=== PATIENT | female | born 1945 | race Caucasian/White ===

== ENCOUNTER 2018-01-28 10:20 | Inpatient (IN) | payer MEDICARE ==
--- OUTSIDE RECORDS SUMMARY | 2018-01-28 10:22 | XMS REPORT | Clinical Summary ---
:1945 Author Organization [facility] Address [address] [place] [address] Phone Care Team Providers Name Role Phone Unavailable Primary Care Provider Unavailable Allergies Active Allergy Reactions Severity Noted Date Comments Morphine 10/20/2017 Promethazine-Dm 10/20/2017 Current Medications Prescription Sig. Disp. Refills Start Date End Date Status atorvastatin Take 80 mg by Active (LIPITOR) 40 MG mouth daily . tablet enalapril (VASOTEC) Take 5 mg by Active 5 MG tablet mouth daily. furosemide (LASIX) Take 40 mg by Active 40 MG tablet mouth daily. dronedarone Take 400 mg by Active (MULTAQ) 400 mg mouth 2 (two) tablet times daily with breakfast and dinner. aspirin 81 MG EC Take 81 mg by Active tablet mouth daily. rivaroxaban Take 1 tablet 0 10/30/2017 Active (XARELTO) 20 mg Tab (20 mg total) tablet by mouth daily with dinner Hold since 10/18/2017 . clopidogrel Take 75 mg by Discontinued (PLAVIX) 75 mg mouth daily On 8 tablet hold since 10/18/17 . metoprolol Take 25 mg by Discontinued (LOPRESSOR) 25 MG mouth daily. 8 tablet rivaroxaban Take by mouth Discontinued (XARELTO) 20 mg Tab daily with 8 tablet dinner Hold since 10/18/2017 . acetaminophen Take 2 tablets 0 10/22/2017 (TYLENOL) 325 MG (650 mg total) 8 tablet by mouth every 6 (six) hours as needed for Pain for up to 10 days. traMADol (ULTRAM) Take 1 tablet 30 tablet 0 10/23/2017 50 mg tablet (50 mg total) 8 by mouth every 6 (six) hours as needed for up to 10 days. Max Daily Amount: 200 mg Active Problems Problem Noted Date Essential hypertension 10/22/2017 Right carotid artery occlusion 10/21/2017 Carotid artery occlusion Coronary artery disease TIA (transient ischemic attack) Atrial fibrillation (HCC) Hyperlipidemia Encounters Date Type Specialty Care Team Description 10/21/2017 - Hospital Encounter Cardiology Max eSo Occlusion of right 10/23/2017 carotid artery (Primary Dx) 10/21/2017 Procedure Pass 10/21/2017 Surgery Max Seo, ENDARTERECTOMY,CAROTID 10/20/2017 Hospital Encounter Max Seo MD 10/20/2017 Office Visit Cardiology Max Seo, Right-sided carotid MD artery disease (HCC) (Primary Dx);Chronic atrial fibrillation (HCC);Occlusion of right carotid artery;Coronary artery disease involving [place] coronary artery of [place] heart, angina presence unspecified;Transient cerebral ischemia, unspecified type;Atrial fibrillation, unspecified type (HCC);Hyperlipidemia, unspecified hyperlipidemia type 10/20/2017 Anesthesia Event Stephen Blackburn MD after 01/27/2017 Social History Tobacco Use Types Packs/Day Years Used Date Former Smoker 09 01 Quit: 2012 Smokeless Tobacco: Never Used Alcohol Use Drinks/Week oz/Week Comments No Sex Assigned at Date Recorded Not on file Last Filed Vital Signs Vital Sign Reading Time Taken Blood Pressure 105/60 10/23/2017 10:40 AM CDT Pulse 70 10/23/2017 10:40 AM CDT Temperature 35.7 C (96.2 F) 10/23/2017 8:03 AM CDT Respiratory Rate 18 10/23/2017 10:40 AM CDT Oxygen Saturation 94% 10/23/2017 10:40 AM CDT Inhaled Oxygen Concentration - - Weight 80.6 kg (177 lb 11.2 oz) 10/21/2017 6:49 AM CDT Height 157.5 cm (5' 2") 10/21/2017 6:49 AM CDT Body Mass Index 32.5 10/21/2017 6:49 AM CDT Plan of Treatment Health Maintenance Due Date Last Done Comments INFLUENZA VACCINE 05/03/2018 Implants Implanted Type Area Engineer And Geologist Device Expiration Model / Identifier Date Serial / Lot Grft Hemshld Dbl Ovidio 0.3x3.0in [id number] - [id number] Graft/Pa Right: GETINGE 03/02/2022 [id number] / Implanted: Qty: 1 on 10/21/2017 by Max Seo MD [facility] [place] IND:SARIKA: CV [id number] / [id number] Procedures Procedure Name Priority Date/Time Associated Diagnosis Comments ENDARTERECTOMY,CAROTID 10/21/2017 7:30 AM CDT CAROTID STENOSIS after 01/27/2017 Results EKG-SCANNED (10/26/2017 12:40 PM)RHYTHM STRIP - SCAN (10/26/2017 12:40 PM)CBC with platelet count + automated diff (10/23/2017 4:03 AM)Only the most recent of3 resultswithin the time period is included. Component Value Ref Range WBC 5.6 3.5 - 10.5 K/L RBC 3.59 (L) 3.93 - 5.22 M/L Hemoglobin 10.1 (L) 11.2 - 15.7 GM/DL Hematocrit 32.8 (L) 34.1 - 44.9 % MCV 91.4 79.4 - 94.8 fL MCH 28.1 25.6 - 32.2 pg MCHC 30.8 (L) 32.2 - 35.5 GM/DL RDW 15.2 (H) 11.7 - 14.4 % Platelets 113 (L) 150 - 450 K/CU MM MPV 13.5 (H) 9.4 - 12.3 fL nRBC 0 0 - 0 /100 WBC % Neutros 63 % % Lymphs 23 % % Monos 9 % % Eos 4 % % Baso 1 % # Neutros 3.50 1.56 - 6.13 K/L # Lymphs 1.29 1.18 - 3.74 K/L # Monos 0.52 (H) 0.24 - 0.36 K/L # Eos 0.23 0.04 - 0.36 K/L # Baso 0.03 0.01 - 0.08 K/L Immature Granulocytes-Relative 0 0 - 1 % Specimen Performing Laboratory Blood [facility] [address] [address] CBC with platelet count + automated diff (10/23/2017 4:03 AM)Only the most recent of3 resultswithin the time period is included. Specimen Performing Laboratory Blood Narrative The following orders were created for panel order CBC with platelet count + automated diff. Procedure Abnormality Status --------- ------ CBC with platelet count ...[[id number]]AbnormalFinal result Please view results for these tests on the individual orders. Magnesium (10/23/2017 4:03 AM) Component Value Ref Range Magnesium 1.7 1.6 - 2.6 mg/dL Specimen Performing Laboratory Blood [place] [id number] Narrative [facility] with [facility] with [facility] Basic Metabolic Panel (10/23/2017 4:03 AM)Only the most recent of3 resultswithin the time period is included. Component Value Ref Range Sodium 138 136 - 145 meq/L Potassium 3.7 3.5 - 5.1 meq/L Chloride 103 98 - 107 meq/L CO2 28 22 - 29 meq/L BUN 11 7 - 21 mg/dL Creatinine 0.95 0.57 - 1.25 mg/dL Glucose 89 70 - 105 mg/dL Calcium 9.0 8.4 - 10.2 mg/dL EGFR 58Comment: ESTIMATED GFR IS NOT ACCURATE mL/min/1.73 sq m CREATININE CLEARANCE IN PREDICTING GLOMERULAR FILTRATION RATE. ESTIMATED GFR IS NOT APPLICABLE FOR DIALYSIS PATIENTS. Specimen Performing Laboratory Blood [address] [address] Narrative Call [facility] with [facility] with results TRANSFUSION SERVICE REPORT - SCAN (10/21/2017 5:43 PM)Glucose-Stat Lab (2017 9:29 AM) Component Value Ref Range Glucose 105 70 - 110 mg/dL Specimen Performing Laboratory Blood, Arterial [address] [address] HGB/HCT (H&H)-Stat Lab (10/21/2017 9:29 AM) Component Value Ref Range Hemoglobin 11.2 (L) 12.0 - 15.0 g/dL Hematocrit 33.0 (L) 36.0 - 45.0 % Specimen Performing Laboratory Blood, Arterial [address] [address] Tissue Exam (10/21/2017 8:37 AM) Component Value Ref Range Case Report Surgical Pathology Report Case: [id number] Authorizing Provider:Max Seo MDCollected: 10/21/2017 0837 Ordering Location: [facility] Received: 10/21/2017 0931 PERIOPERATIVE SERVICES Pathologist: Gilbert Anderson MD Specimen:Carotid, Right, RIGHT CAROTID PLAQUE DIAGNOSIS ARTERY, RIGHT CAROTID, ENDARTERECTOMY: CALCIFIC ATHEROSCLEROTIC PLAQUE Signing Pathologist Direct Phone Line: [phone] CPT Code(s) 48121; 05772 CLINICAL HISTORY Carotid stenosis SPECIMEN SOURCE Right carotid plaque GROSS DESCRIPTION In saline labeled "carotid, right", description "right carotid plaque" is a 3.5 cm in length x 0.9 cm in diameter michel-white to yellow-ang cylindrical previously incised portion of fibrous tissue. Sectioning reveals focal calcification. Fast Brim Pouncer sections are submitted in cassette A1 for decalcification. DB/pl MICROSCOPIC DESCRIPTION Performed Specimen Performing Laboratory Tissue - Carotid, Right [facility] [address] [address] XR chest 1 view portable / bedside (10/21/2017 7:21 AM) Specimen Performing Laboratory GE RIS Narrative FINAL REPORT Chest one view AP 10/21/2017 7:29 AM CLINICAL INDICATION: baseline pre op COMPARISON: None available IMPRESSION: The cardiac silhouette is prominent. There is calcification and enlargement of the mitral valve annulus. The central pulmonary vasculature is not engorged. The lungs are well aerated. There are postoperative changes in the left humerus. Signed: Adriel May MD Report Verified Date/Time:10/21/2017 07:29:40 Reading Location: [facility] Radiology Reading Room Procedure Note Interface, External Ris In - 10/21/2017 7:31 AM CDT FINAL REPORT Chest one view AP 10/21/2017 7:29 AM CLINICAL INDICATION: baseline pre op COMPARISON: None available IMPRESSION: The cardiac silhouette is prominent. There is calcification and enlargement of the mitral valve annulus. The central pulmonary vasculature is not engorged. The lungs are well aerated. There are postoperative changes in the left humerus. Signed: Adriel May MD Report Verified Date/Time: 10/21/2017 07:29:40 Reading Location: [facility] Reading Room Prothrombin time/INR (10/21/2017 7:05 AM) Component Value Ref Range Protime 13.5 11.7 - 14.7 seconds INR 1.0 <=5.9 Specimen Performing [place] [address] Narrative RECOMMENDED COUMADIN/WARFARIN INR THERAPY RANGES STANDARD DOSE: 2.0 - 3.0 Includes: PROPHYLAXIS for venous thrombosis, systemic embolization; TREATMENT for venous thrombosis and/or pulmonary embolus. HIGH RISK: Target INR is 2.5-3.5 for patients with mechanical heart valves. Type and screen, automated (10/20/2017 9:49 AM) Component Value Ref Range ABO/RH AUTOMATED (BEAKER) A POSITIVE Ab Scrn NEGATIVE Specimen Performing [place] [address] after 01/27/2017
--- OUTSIDE RECORDS SUMMARY | 2018-01-28 10:22 | XMS REPORT ---
:1945 Author Organization [facility] Address [address] [place] [address] [address] [place] [address] Care Team Providers Name Role Phone CARLOS SEO Unavailable Unavailable Problems This patient has no known problems. Allergies, Adverse Reactions, Alerts This patient has no known allergies or adverse reactions. Medications This patient has no known medications. Results Test Description Test Time Test Comments Text Results Atomic Results Result Comments TISSUE EXAM 2017-10-29 14:20:00 Surgical Pathology Report Case: [id number] Authorizing Provider: Carlos Seo MD Collected: 10/21/2017 0837 Ordering Location: [facility] Received: 10/21/2017 0931 PERIOPERATIVE SERVICES Pathologist: Gilbert Anderson MD Specimen: Carotid, Right, RIGHT CAROTID PLAQUE ARTERY, RIGHT CAROTID, ENDARTERECTOMY:CALCIFIC ATHEROSCLEROTIC PLAQUE Signing Pathologist Direct Phone Line: [phone] signed by Gilbert Anderson MD on 10/29/2017 at 2:20 [id number]; [id number] stenosisRight carotid plaqueIn saline labeled "carotid, right", description "right carotid plaque" is a 3.5 cm in length x 0.9 cm in diameter michel-white to yellow-ang cylindrical previously incised portion of fibrous tissue. Sectioning reveals focal calcification. Passenger Train Braker sections are submitted in cassette A1 for decalcification. DB/plPerformed MAGNESIUM 2017-10-23 05:30:00 Test Item Value Reference Range Comments MAGNESIUM (BEAKER) (test vfop=284) 1.7 mg/dL 1.6-2.6 Call [facility] with resultsCall [facility] with resultsBASIC METABOLIC [id number] 05:30: 00 Test Item Value Reference Range Comments SODIUM (BEAKER) (test 138 meq/L 136-145 ykdv=088) POTASSIUM (BEAKER) (test 3.7 meq/L 3.5-5.1 jrsc=770) CHLORIDE (BEAKER) (test 103 meq/L 98-107 skix=795) CO2 (BEAKER) (test 28 meq/L 22-29 blnt=201) BLOOD UREA NITROGEN 11 mg/dL 7-21 (BEAKER) (test alxy=935) CREATININE (BEAKER) (test 0.95 mg/dL 0.57-1.25 uory=331) GLUCOSE RANDOM (BEAKER) 89 mg/dL 70-105 (test vtew=339) CALCIUM (BEAKER) (test 9.0 mg/dL 8.4-10.2 lcsm=015) EGFR (BEAKER) (test 58 mL/min/1.73 sq m ESTIMATED GFR IS NOT glvc=6510) ACCURATE CREATININE CLEARANCE IN PREDICTING GLOMERULAR FILTRATION RATE. ESTIMATED GFR IS NOT APPLICABLE FOR DIALYSIS PATIENTS. Call [facility] with resultsCall [facility] with resultsCBC W/PLT COUNT & AUTO [id number] 04:49:00 Test Item Value Reference Range Comments WHITE BLOOD CELL COUNT (BEAKER) (test psjt=825) 5.6 K/ L 3.5-10.5 RED BLOOD CELL COUNT (BEAKER) (test gibg=624) 3.59 M/ L 3.93-5.22 HEMOGLOBIN (BEAKER) (test dpod=962) 10.1 GM/DL 11.2-15.7 HEMATOCRIT (BEAKER) (test kjbh=584) 32.8 % 34.1-44.9 MEAN CORPUSCULAR VOLUME (BEAKER) (test vinc=207) 91.4 fL 79.4-94.8 MEAN CORPUSCULAR HEMOGLOBIN (BEAKER) (test 28.1 pg 25.6-32.2 ennz=627) MEAN CORPUSCULAR HEMOGLOBIN CONC (BEAKER) (test 30.8 GM/DL 32.2-35.5 dede=348) RED CELL DISTRIBUTION WIDTH (BEAKER) (test 15.2 % 11.7-14.4 mohs=130) PLATELET COUNT (BEAKER) (test btqr=981) 113 K/CU MM 150-450 MEAN PLATELET VOLUME (BEAKER) (test xfsw=056) 13.5 fL 9.4-12.3 NUCLEATED RED BLOOD CELLS (BEAKER) (test 0 /100 WBC 0-0 vdle=078) NEUTROPHILS RELATIVE PERCENT (BEAKER) (test 63 % hkak=066) LYMPHOCYTES RELATIVE PERCENT (BEAKER) (test 23 % myvk=792) MONOCYTES RELATIVE PERCENT (BEAKER) (test 9 % rkjw=793) EOSINOPHILS RELATIVE PERCENT (BEAKER) (test 4 % gntx=072) BASOPHILS RELATIVE PERCENT (BEAKER) (test 1 % erpb=640) NEUTROPHILS ABSOLUTE COUNT (BEAKER) (test 3.50 K/ L 1.56-6.13 kulc=787) LYMPHOCYTES ABSOLUTE COUNT (BEAKER) (test 1.29 K/ L 1.18-3.74 qlmv=570) MONOCYTES ABSOLUTE COUNT (BEAKER) (test 0.52 K/ L 0.24-0.36 rehd=834) EOSINOPHILS ABSOLUTE COUNT (BEAKER) (test 0.23 K/ L 0.04-0.36 pnif=672) BASOPHILS ABSOLUTE COUNT (BEAKER) (test 0.03 K/ L 0.01-0.08 eybr=922) IMMATURE GRANULOCYTES-RELATIVE PERCENT (BEAKER) 0 % 0-1 (test qagj=3954) BASIC METABOLIC [id number] 05:38:00 Test Item Value Reference Range Comments SODIUM (BEAKER) (test 138 meq/L 136-145 jsyn=841) POTASSIUM (BEAKER) (test 3.7 meq/L 3.5-5.1 ucsb=241) CHLORIDE (BEAKER) (test 107 meq/L 98-107 xqrl=354) CO2 (BEAKER) (test 25 meq/L 22-29 clqx=117) BLOOD UREA NITROGEN 14 mg/dL 7-21 (BEAKER) (test abin=503) CREATININE (BEAKER) (test 0.76 mg/dL 0.57-1.25 hlun=369) GLUCOSE RANDOM (BEAKER) 88 mg/dL 70-105 (test sdkr=473) CALCIUM (BEAKER) (test 8.5 mg/dL 8.4-10.2 dsga=302) EGFR (BEAKER) (test 75 mL/min/1.73 sq m ESTIMATED GFR IS NOT wzwd=8493) ACCURATE CREATININE CLEARANCE IN PREDICTING GLOMERULAR FILTRATION RATE. ESTIMATED GFR IS NOT APPLICABLE FOR DIALYSIS PATIENTS. CBC W/PLT COUNT & AUTO [id number] 05:13:00 Test Item Value Reference Range Comments WHITE BLOOD CELL COUNT (BEAKER) (test gais=574) 3.8 K/ L 3.5-10.5 RED BLOOD CELL COUNT (BEAKER) (test xkww=057) 3.40 M/ L 3.93-5.22 HEMOGLOBIN (BEAKER) (test lucp=329) 9.6 GM/DL 11.2-15.7 HEMATOCRIT (BEAKER) (test hxdw=200) 31.3 % 34.1-44.9 MEAN CORPUSCULAR VOLUME (BEAKER) (test wjxg=669) 92.1 fL 79.4-94.8 MEAN CORPUSCULAR HEMOGLOBIN (BEAKER) (test 28.2 pg 25.6-32.2 lvyr=042) MEAN CORPUSCULAR HEMOGLOBIN CONC (BEAKER) (test 30.7 GM/DL 32.2-35.5 ncof=709) RED CELL DISTRIBUTION WIDTH (BEAKER) (test 15.4 % 11.7-14.4 ndyr=088) PLATELET COUNT (BEAKER) (test ivtx=504) 91 K/CU MM 150-450 MEAN PLATELET VOLUME (BEAKER) (test utna=095) 13.6 fL 9.4-12.3 NUCLEATED RED BLOOD CELLS (BEAKER) (test 0 /100 WBC 0-0 ympn=620) NEUTROPHILS RELATIVE PERCENT (BEAKER) (test 64 % ygpm=034) LYMPHOCYTES RELATIVE PERCENT (BEAKER) (test 23 % ehmn=623) MONOCYTES RELATIVE PERCENT (BEAKER) (test 8 % qzor=778) EOSINOPHILS RELATIVE PERCENT (BEAKER) (test 4 % yspl=020) BASOPHILS RELATIVE PERCENT (BEAKER) (test 0 % vhvj=605) NEUTROPHILS ABSOLUTE COUNT (BEAKER) (test 2.45 K/ L 1.56-6.13 mekm=166) LYMPHOCYTES ABSOLUTE COUNT (BEAKER) (test 0.89 K/ L 1.18-3.74 fdzn=963) MONOCYTES ABSOLUTE COUNT (BEAKER) (test uluy=123) 0.30 K/ L 0.24-0.36 EOSINOPHILS ABSOLUTE COUNT (BEAKER) (test 0.14 K/ L 0.04-0.36 rrro=292) BASOPHILS ABSOLUTE COUNT (BEAKER) (test xovb=310) 0.01 K/ L 0.01-0.08 IMMATURE GRANULOCYTES-RELATIVE PERCENT (BEAKER) 1 % 0-1 (test feae=6015) GLUCOSE-STAT [id number] 09:53:00 Test Item Value Reference Range Comments GLUCOSE RANDOM (BEAKER) (test isot=674) 105 mg/dL 70-110 HGB/HCT (H&H) - STAT [id number] 09:53:00 Test Item Value Reference Range Comments HEMOGLOBIN (BEAKER) (test todg=752) 11.2 g/dL 12.0-15.0 HEMATOCRIT (BEAKER) (test hvdf=411) 33.0 % 36.0-45.0 BASIC METABOLIC [id number] 07:45:00 Test Item Value Reference Range Comments SODIUM (BEAKER) (test 136 meq/L 136-145 fppo=929) POTASSIUM (BEAKER) (test 3.5 meq/L 3.5-5.1 jthy=608) CHLORIDE (BEAKER) (test 107 meq/L 98-107 wasg=497) CO2 (BEAKER) (test 21 meq/L 22-29 kqnv=187) BLOOD UREA NITROGEN 17 mg/dL 7-21 (BEAKER) (test egaj=526) CREATININE (BEAKER) (test 0.78 mg/dL 0.57-1.25 glpg=837) GLUCOSE RANDOM (BEAKER) 93 mg/dL 70-105 (test vixz=694) CALCIUM (BEAKER) (test 9.6 mg/dL 8.4-10.2 cukh=430) EGFR (BEAKER) (test 73 mL/min/1.73 sq m ESTIMATED GFR IS NOT xsdz=1764) ACCURATE CREATININE CLEARANCE IN PREDICTING GLOMERULAR FILTRATION RATE. ESTIMATED GFR IS NOT APPLICABLE FOR DIALYSIS PATIENTS. RAD, CHEST, 1 VIEW, NON [id number] 07:29:00Reason for exam:-> baselineReason for exam:->pre opShould this be performed at the bedside?-> YesFINAL REPORT Chest one view AP 10/21/2017 7:29 AM CLINICAL INDICATION: baselinepre op COMPARISON: None available IMPRESSION: The cardiac silhouette is prominent. There is calcification and enlargement of the mitral valve annulus. The central pulmonary vasculature is not engorged.The lungs are well aerated. There are postoperative changes in the left humerus. Signed: Adriel Mayeport Verified Date/Time: 10/21/2017 07:29:40 Reading Location: [facility] Reading Room PROTHROMBIN [id number] 07:23:00 Test Item Value Reference Range Comments PROTIME (BEAKER) (test ercs=532) 13.5 seconds 11.7-14.7 INR (BEAKER) (test ccfj=110) 1.0 <=5.9 RECOMMENDED COUMADIN/WARFARIN INR THERAPY RANGESSTANDARD DOSE: 2.0 - 3.0 Includes: PROPHYLAXIS forvenous thrombosis, systemic embolization; TREATMENT for venous thrombosis and/or pulmonary embolus.HIGH RISK: Target INR is 2.5-3.5 for patients with mechanical heart valves.CBC W/PLT COUNT & AUTO [id number] 10:12:00 Test Item Value Reference Range Comments WHITE BLOOD CELL COUNT (BEAKER) (test auhe=931) 5.4 K/ L 3.5-10.5 RED BLOOD CELL COUNT (BEAKER) (test pgrc=145) 4.39 M/ L 3.93-5.22 HEMOGLOBIN (BEAKER) (test gtjq=168) 12.2 GM/DL 11.2-15.7 HEMATOCRIT (BEAKER) (test mhkv=255) 39.1 % 34.1-44.9 MEAN CORPUSCULAR VOLUME (BEAKER) (test lalw=528) 89.1 fL 79.4-94.8 MEAN CORPUSCULAR HEMOGLOBIN (BEAKER) (test 27.8 pg 25.6-32.2 yddg=395) MEAN CORPUSCULAR HEMOGLOBIN CONC (BEAKER) (test 31.2 GM/DL 32.2-35.5 bfmd=005) RED CELL DISTRIBUTION WIDTH (BEAKER) (test 14.7 % 11.7-14.4 szum=410) PLATELET COUNT (BEAKER) (test hteg=796) 151 K/CU MM 150-450 MEAN PLATELET VOLUME (BEAKER) (test ppgs=008) 13.0 fL 9.4-12.3 NUCLEATED RED BLOOD CELLS (BEAKER) (test 0 /100 WBC 0-0 gddl=421) NEUTROPHILS RELATIVE PERCENT (BEAKER) (test 72 % rtny=001) LYMPHOCYTES RELATIVE PERCENT (BEAKER) (test 18 % agzq=925) MONOCYTES RELATIVE PERCENT (BEAKER) (test 7 % jijz=999) EOSINOPHILS RELATIVE PERCENT (BEAKER) (test 2 % fhtv=227) BASOPHILS RELATIVE PERCENT (BEAKER) (test 1 % cjbm=865) NEUTROPHILS ABSOLUTE COUNT (BEAKER) (test 3.89 K/ L 1.56-6.13 gywf=479) LYMPHOCYTES ABSOLUTE COUNT (BEAKER) (test 0.99 K/ L 1.18-3.74 kfxf=066) MONOCYTES ABSOLUTE COUNT (BEAKER) (test 0.37 K/ L 0.24-0.36 suqc=687) EOSINOPHILS ABSOLUTE COUNT (BEAKER) (test 0.08 K/ L 0.04-0.36 ywaf=636) BASOPHILS ABSOLUTE COUNT (BEAKER) (test 0.03 K/ L 0.01-0.08 qoju=852) IMMATURE GRANULOCYTES-RELATIVE PERCENT (BEAKER) 1 % 0-1 (test rjrh=1843)
[2018-01-28] MEDS ORDERED: METOPROLOL TARTRATE 5 MG/5 ML INJ IV ONE (10:34)
[2018-01-28 11:06] LABS: ALT/SGPT 25 U/L (12-78); AST/SGOT 32 U/L (15-37); Albumin 3.5 g/dL (3.4-5.0); Alkaline Phosphatase 125 U/L (45-117); BUN Blood Urea Nitrogen 22 mg/dL (7-18); Bicarbonate 26 mmol/L (21-32); Bilirubin Direct < 0.1 mg/dL (0-0.2); Bilirubin Total 0.3 mg/dL (0.2-1.0); Creatine Phosphokinase 103 U/L (26-192); Glucose Level 99 mg/dL (74-106); Magnesium 1.9 mg/dL (1.8-2.4); NT PRO-BNP 5065 pg/mL (<125); Potassium 3.1 mmol/L (3.5-5.1); Protein, Total 7.4 g/dL (6.4-8.2); Sodium Level 142 mmol/L (136-145)
[2018-01-28 11:19] LABS: Protime INR 1.06
[2018-01-28] MEDS ORDERED: POTASSIUM CL SA 10 MEQ TAB PO ONE (11:22)
[2018-01-28] MEDS ORDERED: FUROSEMIDE 40 MG/4 ML VIAL ONE (11:23)
[2018-01-28 11:24] LABS: Absolute Lymphocytes (CBC) 0.8 K/uL (0.7-4.9); Absolute Monocytes 0.3 K/uL (0.1-1.3); Absolute Neutrophil 3.8 K/uL (1.8-8.0); Basophils % 0.8 % (0-1.3); Eosinophils % 1.4 % (0-4.4); Hematocrit 36.1 % (36.0-45.0); Lymphocytes % 15.6 % (15.3-44.8); MCH 27.2 pg (27.0-35.0); MCV 86.7 fL (80-100); MPV 11.5 fL (7.6-11.3); Monocytes % 6.9 % (3.3-12.3); RBC Red Blood Cell Count 4.17 M/uL (3.86-4.86)
--- NOTE | 2018-01-28 11:28 | RAD REPORT ---
EXAM DESCRIPTION: Daisha Single View01/28/2018 11:18 am CLINICAL HISTORY: Shortness of breath COMPARISON: October 2017 FINDINGS: Moderate bilateral pulmonary opacities are seen. The heart is mildly to moderately enlarg ed. Small pleural effusions may be present IMPRESSION: These findings likely indicate CHF
--- NOTE | 2018-01-28 11:29 | ER ---
Nurse's Notes [facility] Name: Jenniffer Harden Age: 72 yrs Sex: Female : 1945 Arrival Date: 01/28/2018 Time: 10:21 Bed 4 Private MD: Kasey Pinto Diagnosis: Atrial fibrillation and flutter-with rvr;Acute systolic (congestive) heart failure Presentation: 01/28 10:28 Presenting complaint: Patient states: "I have a-fib and I have been feeling really lk1 short of breath since this morning. I have never felt like this before. I was here a few months ago and they had to shock me.". Transition of care: patient was not received from another setting of care. Onset of symptoms was January 28, 2018 at 08:00. Risk Assessment: Do you want to hurt yourself or someone else? Patient reports no desire to harm self or others. Initial Sepsis Screen: Does the patient meet any 2 criteria? No. Patient's initial sepsis screen is negative. Does the patient have a suspected source of infection? No. Patient's initial sepsis screen is negative. Care prior to arrival: None. 10:28 Method Of Arrival: Wheelchair lk1 10:28 Acuity: RUTHIE 2 lk1 Historical: - Allergies: 10:30 Morphine; lk1 10:30 PENICILLINS; lk1 10:30 Phenergan; lk1 - Home Meds: 13:50 atorvastatin 40 mg oral tab 1 tab once daily [Active]; clopidogrel 75 mg oral tab 1 tab iw once daily [Active]; enalapril maleate 5 mg Oral tab 1 tab once daily [Active]; furosemide 40 mg Oral tab 1 tab once daily [Active]; metoprolol tartrate 25 mg Oral tab 1 tab once daily [Active]; aspirin 81 mg Oral TbEC 1 tab once daily [Active]; - PMHx: 10:30 Arthritis; Atrial Fib; Hypertension; mitral valve prolapse; Myocardial infarction; lk1 Osteoporosis; - PSHx: 10:30 Heart stents; left hip; Cholecystectomy; Hysterectomy; Carotid surgery; left shoulder lk1 replacement; - Immunization history:: Adult Immunizations up to date. - Social history:: Smoking status: Patient/guardian denies using tobacco. - Ebola Screening: : Patient negative for fever greater than or equal to 101.5 degrees Fahrenheit, and additional compatible Ebola Virus Disease symptoms Patient denies exposure to infectious person Patient denies travel to an Ebola-affected area in the 21 days before illness onset No symptoms or risks identified at this time. Screenin:31 Abuse screen: Denies threats or abuse. Denies injuries from another. Nutritional jl7 screening: No deficits noted. Tuberculosis screening: No symptoms or risk factors identified. Fall Risk IV access (20 points). Total Hall Fall Scale indicates No Risk (0-24 pts). Assessment: 10:31 General: Appears uncomfortable, Behavior is calm, cooperative. Pain: Denies pain. Pain jl7 does not radiate. Pain began 1 day ago. Cardiovascular: Heart tones present Patient's skin is warm and dry. Rhythm is atrial fibrillation with rapid ventricular response Chest pain pt states "It's not pain. It just feels like pressure and I feel like I can't catch my breath.". 10:31 Neuro: Level of Consciousness is awake, alert, obeys commands, Oriented to person, jl7 place, time, situation. Respiratory: Airway is patent Respiratory effort is even, labored, Respiratory pattern is symmetrical, tachypnea Breath sounds are clear bilaterally. GI: Reports nausea, Patient currently denies diarrhea, vomiting. : No signs and/or symptoms were reported regarding the genitourinary system. Derm: Skin is pink, warm \\T\\ dry. 11:30 Reassessment: Patient and/or family updated on plan of care and expected duration. Pain jl7 level reassessed. Patient is alert, oriented x 3, equal unlabored respirations, skin warm/dry/pink. 12:30 Reassessment: pt c/o Headache, provider notified, see MAR for orders. jl7 12:55 Reassessment: Dr. Hidalgo at bedside. jl7 13:11 Reassessment: Echo at bedside. jl7 Vital Signs: 10:31 BP 156 / 102; Pulse 169; Resp 24; Temp 98.1(TE); Pulse Ox 96% on R/A; Weight 77.11 kg lk1 (R); Height 5 ft. 2 in. (157.48 cm) (R); Pain 0/10; 10:34 BP 142 / 100; Pulse 132; Resp 16 S; Pulse Ox 96% on 2 lpm NC; jl7 10:39 BP 142 / 103; Pulse 119; Resp 23; Pulse Ox 97% 2 lpm ; jl7 10:44 BP 128 / 103; Pulse 115; Resp 19; Pulse Ox 96% on 2 lpm NC; Pain 0/10; jl7 11:02 BP 116 / 82; Pulse 118; Resp 19; Pulse Ox 97% on 2 lpm NC; Pain 0/10; jl7 11:30 BP 114 / 89; Pulse 130; Resp 16 S; Pulse Ox 97% on 2 lpm NC; jl7 12:00 BP 124 / 90; Pulse 120; Resp 20 S; Pulse Ox 96% on 2 lpm NC; jl7 12:30 BP 139 / 90; Pulse 127; Resp 19; Pulse Ox 96% on 2 lpm NC; jl7 13:00 BP 124 / 102; Pulse 128; Resp 22; Pulse Ox 98% on 2 lpm NC; jl7 10:31 Body Mass Index 31.09 (77.11 kg, 157.48 cm) lk1 ED Course: 10:21 Patient arrived in ED. mr 10:21 Kasey Pinto MD is Private Physician. mr 10:29 Triage completed. lk1 10:31 Arm band placed on right wrist. lk1 10:31 Patient has correct armband on for positive identification. Placed in gown. Bed in low jl7 position. Call light in reach. Side rails up X 1. cardiac monitor on. Pulse ox on. NIBP on. Warm blanket given. 10:31 Inserted saline lock: 18 gauge in right antecubital area, using aseptic technique. jl7 ,using aseptic technique. Inserted by INOCENCIO Hernandez Blood collected. Oxygen administration via nasal cannula \\T\\ 2L/min. 10:35 Inserted saline lock: 20 gauge in left antecubital area, using aseptic technique. jl7 ,using aseptic technique. Inserted by FANY Shannon. 10:40 Harjinder Nicolas PA is PHCP. jr8 10:40 Joni Meléndez MD is Attending Physician. jr8 10:40 Inserted saline lock: 20 gauge in right wrist, using aseptic technique. inserted by kishan Hernandez RN. 10:54 Reed Azul RN is Primary Nurse. jl7 11:15 X-ray completed. Portable x-ray completed in exam room. Patient tolerated procedure ml well. 11:18 XRAY Chest (1 view) In Process Unspecified. EDMS 11:28 Thien Sims MD is Hospitalizing Provider. jr8 14:33 No provider procedures requiring assistance completed. Patient admitted, IV remains in iw place. Administered Medications: 10:32 Drug: Metoprolol 5 mg Route: IVP; Site: right antecubital; jl7 10:39 Drug: Metoprolol 5 mg Route: IVP; Site: left antecubital; jl7 10:44 Drug: Metoprolol 5 mg Route: IVP; Site: right antecubital; jl7 10:50 Follow up: Response: No adverse reaction; Other; HR decreased jl7 11:25 Drug: Potassium Chloride 40 mEq Route: PO; jl7 13:11 Follow up: Response: No adverse reaction jl7 11:26 Drug: Lasix 40 mg Route: IVP; Site: right wrist; jl7 13:11 Follow up: Response: No adverse reaction jl7 13:04 Drug: Tylenol 1000 mg Route: PO; jl7 13:40 Follow up: Response: No adverse reaction iw 13:05 Drug: Digoxin 0.5 mg Route: IVP; Site: left antecubital; jl7 14:00 Follow up: Response: No adverse reaction iw Outcome: 11:29 Decision to Hospitalize by Provider. jr8 14:32 Admitted to Tele accompanied by tech, family with patient, via stretcher, with oxygen, iw with chart, Report called to INOCENCIO Chew 14:32 Condition: good 14:32 Discharge instructions given to patient, family, Instructed on the need for admit. 14:34 Patient left the ED. iw Signatures: Dispatcher [employer] [facility] Milagros Fish Irene, RN Lynne Mabry Josh, PA PA jr8 Berna Vallecillo RN RN lk1 Reed Azul RN RN jl7 Corrections: (The following items were deleted from the chart) 13:11 10:04 Tylenol 1000 mg PO jl7 jl7
--- NOTE | 2018-01-28 11:29 | EDPHYS ---
Physician Documentation [facility] Name: Jenniffer Harden Age: 72 yrs Sex: Female : 1945 Arrival Date: 01/28/2018 Time: 10:21 Bed 4 Private MD: Kasey Pinto ED Physician Joni Meléndez HPI: 01/28 11:26 This 72 yrs old Female presents to ER via Wheelchair with complaints of jr8 Shortness of breath. 11:26 The patient has shortness of breath at rest. Onset: The symptoms/episode began/occurred jr8 acutely, today. Duration: The symptoms are continuous. The patient's shortness of breath is aggravated by walking. Associated signs and symptoms: Pertinent positives: palpitations. Severity of symptoms: At their worst the symptoms were moderate in the emergency department the symptoms are unchanged. The patient has not experienced similar symptoms in the past. The patient has not recently seen a physician. history of atrial fibrillation. Has been off of anticoagulation due to carotid stents . Historical: - Allergies: 10:30 Morphine; lk1 10:30 PENICILLINS; lk1 10:30 Phenergan; lk1 - Home Meds: 13:50 atorvastatin 40 mg oral tab 1 tab once daily [Active]; clopidogrel 75 mg oral tab 1 tab iw once daily [Active]; enalapril maleate 5 mg Oral tab 1 tab once daily [Active]; furosemide 40 mg Oral tab 1 tab once daily [Active]; metoprolol tartrate 25 mg Oral tab 1 tab once daily [Active]; aspirin 81 mg Oral TbEC 1 tab once daily [Active]; - PMHx: 10:30 Arthritis; Atrial Fib; Hypertension; mitral valve prolapse; Myocardial infarction; lk1 Osteoporosis; - PSHx: 10:30 Heart stents; left hip; Cholecystectomy; Hysterectomy; Carotid surgery; left shoulder lk1 replacement; - Immunization history:: Adult Immunizations up to date. - Social history:: Smoking status: Patient/guardian denies using tobacco. - Ebola Screening: : Patient negative for fever greater than or equal to 101.5 degrees Fahrenheit, and additional compatible Ebola Virus Disease symptoms Patient denies exposure to infectious person Patient denies travel to an Ebola-affected area in the 21 days before illness onset No symptoms or risks identified at this time. ROS: 11:26 Eyes: Negative for injury, pain, redness, and discharge, ENT: Negative for injury, jr8 pain, and discharge, Neck: Negative for injury, pain, and swelling, Abdomen/GI: Negative for abdominal pain, nausea, vomiting, diarrhea, and constipation, Back: Negative for injury and pain, MS/Extremity: Negative for injury and deformity, Skin: Negative for injury, rash, and discoloration, Neuro: Negative for headache, weakness, numbness, tingling, and seizure. 11:26 Cardiovascular: Positive for palpitations, Negative for chest pain, edema, orthopnea, paroxysmal nocturnal dyspnea. 11:26 Respiratory: Positive for dyspnea on exertion, shortness of breath. Exam: 11:26 Eyes: Pupils equal round and reactive to light, extra-ocular motions intact. Lids and jr8 lashes normal. Conjunctiva and sclera are non-icteric and not injected. Cornea within normal limits. Periorbital areas with no swelling, redness, or edema. ENT: Nares patent. No nasal discharge, no septal abnormalities noted. Tympanic membranes are normal and external auditory canals are clear. Oropharynx with no redness, swelling, or masses, exudates, or evidence of obstruction, uvula midline. Mucous membranes moist. Neck: Trachea midline, no thyromegaly or masses palpated, and no cervical lymphadenopathy. Supple, full range of motion without nuchal rigidity, or vertebral point tenderness. No Meningismus. Abdomen/GI: Soft, non-tender, with normal bowel sounds. No distension or tympany. No guarding or rebound. No evidence of tenderness throughout. Back: No spinal tenderness. No costovertebral tenderness. Full range of motion. Skin: Warm, dry with normal turgor. Normal color with no rashes, no lesions, and no evidence of cellulitis. MS/ Extremity: Pulses equal, no cyanosis. Neurovascular intact. Full, normal range of motion. Neuro: Awake and alert, GCS 15, oriented to person, place, time, and situation. Cranial nerves II-XII grossly intact. Motor strength 5/5 in all extremities. Sensory grossly intact. Cerebellar exam normal. Normal gait. 11:26 Respiratory: Lungs have equal breath sounds bilaterally, clear to auscultation and percussion. No rales, rhonchi or wheezes noted. No increased work of breathing, no retractions or nasal flaring. 11:26 Cardiovascular: Rate: tachycardic, Rhythm: irregularly irregular, Pulses: Pulses are 1+ in right radial artery and left radial artery. Heart sounds: normal, normal S1and S2, no S3 or S4, no murmur, no rub, no gallop, Edema: is not appreciated, JVD: is not appreciated. 11:31 ECG was reviewed by the Attending Physician. jr8 Vital Signs: 10:31 BP 156 / 102; Pulse 169; Resp 24; Temp 98.1(TE); Pulse Ox 96% on R/A; Weight 77.11 kg lk1 (R); Height 5 ft. 2 in. (157.48 cm) (R); Pain 0/10; 10:34 BP 142 / 100; Pulse 132; Resp 16 S; Pulse Ox 96% on 2 lpm NC; jl7 10:39 BP 142 / 103; Pulse 119; Resp 23; Pulse Ox 97% 2 lpm ; jl7 10:44 BP 128 / 103; Pulse 115; Resp 19; Pulse Ox 96% on 2 lpm NC; Pain 0/10; jl7 11:02 BP 116 / 82; Pulse 118; Resp 19; Pulse Ox 97% on 2 lpm NC; Pain 0/10; jl7 11:30 BP 114 / 89; Pulse 130; Resp 16 S; Pulse Ox 97% on 2 lpm NC; jl7 12:00 BP 124 / 90; Pulse 120; Resp 20 S; Pulse Ox 96% on 2 lpm NC; jl7 12:30 BP 139 / 90; Pulse 127; Resp 19; Pulse Ox 96% on 2 lpm NC; jl7 13:00 BP 124 / 102; Pulse 128; Resp 22; Pulse Ox 98% on 2 lpm NC; jl7 10:31 Body Mass Index 31.09 (77.11 kg, 157.48 cm) lk1 MDM: 10:40 Patient medically screened. jr8 11:26 Data reviewed: vital signs, nurses notes, lab test result(s), EKG, radiologic studies, jr8 plain films, and as a result, I will admit patient. Data interpreted: Pulse oximetry: on room air is 97 %. Interpretation: normal. Counseling: I had a detailed discussion with the patient and/or guardian regarding: the historical points, exam findings, and any diagnostic results supporting the discharge/admit diagnosis, lab results, radiology results, the need for further work-up and treatment in the hospital. Physician consultation: Thien Sims MD was called at 11:, was contacted at :, regarding admission, to the telemetry unit. consult, patient's condition, and will see patient. 11:51 ED course: Spoke with Dr. Munroe. Would like digoxin to be started as well for now and jr8 to be admitted to Telemetry . 01/28 10:33 Order name: Basic Metabolic Panel; Complete Time: 11:01/28 10:33 Order name: CBC with Diff; Complete Time: :01/28 10:33 Order name: Ckmb; Complete Time: :01/28 10:33 Order name: CPK; Complete Time: :01/28 10:33 Order name: LFT's; Complete Time: 01/28 10:33 Order name: Magnesium; Complete Time: 11:01/28 10:33 Order name: NT PRO-BNP; Complete Time: :01/28 10:33 Order name: PT-INR; Complete Time: :01/28 10:33 Order name: Ptt, Activated; Complete Time: :01/28 10:33 Order name: Troponin (emerg Dept Use Only); Complete Time: :01/28 10:33 Order name: XRAY Chest (1 view); Complete Time: :01/28 13:00 Order name: Echo without doppler (2D) ag 01/28 10:33 Order name: EKG; Complete Time: 10:34 01/28 10:33 Order name: Cardiac monitoring; Complete Time: 10:01/28 10:33 Order name: EKG - Nurse/Tech; Complete Time: 10:56 01/28 10:33 Order name: IV Saline Lock; Complete Time: 10:01/28 10:33 Order name: Labs collected and sent; Complete Time: :56 01/28 10:33 Order name: O2 Per Protocol; Complete Time: 10:56 01/28 10:33 Order name: O2 Sat Monitoring; Complete Time: 10:56 01/28 10:48 Order name: Labs - recollect needed; Complete Time: 10:55 ag EC:31 Rate is 156 beats/min. Rhythm is irregularly irregular, A fib. QRS interval is normal jr8 at 68 msec. QT interval is normal at 419 msec. No Q waves. T waves are Normal. No ST changes noted. Clinical impression: Atrial Fibrillation. Interpreted by me. Reviewed by me. Administered Medications: 10:32 Drug: Metoprolol 5 mg Route: IVP; Site: right antecubital; jl7 10:39 Drug: Metoprolol 5 mg Route: IVP; Site: left antecubital; jl7 10:44 Drug: Metoprolol 5 mg Route: IVP; Site: right antecubital; jl7 10:50 Follow up: Response: No adverse reaction; Other; HR decreased jl7 11:25 Drug: Potassium Chloride 40 mEq Route: PO; jl7 13:11 Follow up: Response: No adverse reaction jl7 11:26 Drug: Lasix 40 mg Route: IVP; Site: right wrist; jl7 13:11 Follow up: Response: No adverse reaction jl7 13:04 Drug: Tylenol 1000 mg Route: PO; jl7 13:40 Follow up: Response: No adverse reaction iw 13:05 Drug: Digoxin 0.5 mg Route: IVP; Site: left antecubital; jl7 14:00 Follow up: Response: No adverse reaction iw Disposition: 01/28/18 11:29 Hospitalization ordered by Thien Sims for Inpatient Admission. Preliminary diagnosis are Atrial fibrillation and flutter - with rvr, Acute systolic (congestive) heart failure. - Bed requested for Telemetry/MedSurg (Inpatient). - Status is Inpatient Admission. iw - Condition is Stable. - Problem is new. - Symptoms have improved. UTI on Admission? No Addendum: 02/04/2018 11:22 Co-signature as Attending Physician, Joni Meléndez MD I agree with the assessment and k dr plan of care. Signatures: Dispatcher [employer] EDMS Joni Meléndez MD MD kdr Jenn Keene RN RN iw Harjinder Nicolas PA PA jr8 Chela Daniel Leah, RN RN lk1 Reed Azul RN RN jl7 Corrections: (The following items were deleted from the chart) 01/28 11:29 11:29 Hospitalization Ordered by Thien Sims MD for Inpatient Admission. Preliminary jr8 diagnosis is Atrial fibrillation and flutter - with rvr. Bed requested for Telemetry/MedSurg (Inpatient). Status is Inpatient Admission. Condition is Stable. Problem is new. Symptoms have improved. UTI on Admission? No. jr8 13:19 11:29 01/28/2018 11:29 Hospitalization Ordered by Thien Sims MD for Inpatient ag Admission. Preliminary diagnosis is Atrial fibrillation and flutter - with rvr; Acute systolic (congestive) heart failure. Bed requested for Telemetry/MedSurg (Inpatient). Status is Inpatient Admission. Condition is Stable. Problem is new. Symptoms have improved. UTI on Admission? No. jr8 14:34 13:19 01/28/2018 11:29 Hospitalization Ordered by Thien Sims MD for Inpatient iw Admission. Preliminary diagnosis is Atrial fibrillation and flutter - with rvr; Acute systolic (congestive) heart failure. Bed requested for Telemetry/MedSurg (Inpatient). Status is Inpatient Admission. Condition is Stable. Problem is new. Symptoms have improved. UTI on Admission? No. ag
[2018-01-28] MEDS ORDERED: ONDANSETRON 4 MG/2 ML VIAL IV PRN (12:07)
[2018-01-28] MEDS ORDERED: METOPROLOL TARTRATE 5 MG/5 ML INJ IV PRN (12:07)
[2018-01-28] MEDS ORDERED: ACETAMINOPHEN 500 MG TAB ONE (12:43)
[2018-01-28] MEDS ORDERED: DIGOXIN 0.25 MG/ML AMP ONE (12:43)
[2018-01-28 14:42] VITALS: BMI 31.0
[2018-01-28] MEDS: METOPROLOL TAR 50 MG TAB PO SCH ×2 (15:01→21:07)
[2018-01-28] MEDS: DRONEDARONE 400 MG TAB PO SCH ×2 (15:02→21:05)
[2018-01-28] MEDS: FUROSEMIDE 40 MG/4 ML VIAL IV SCH (17:21)
[2018-01-28] MEDS ORDERED: ENALAPRIL MALEATE 5 MG PO SCH (21:00)
[2018-01-28 21:02] LABS: Urine Appearance CLEAR; Urine Bilirubin NEGATIVE (NEG); Urine Blood NEGATIVE (NEG); Urine Color YELLOW; Urine Glucose NEGATIVE (NEG); Urine Protein NEGATIVE (NEG); Urine Urobilinogen 0.2 mg/dL (0.2-1.0); Urine pH 5.5 (5.0-7.0)
[2018-01-28] MEDS: CLOPIDOGREL 75 MG TABLET PO SCH (21:05)
[2018-01-28] MEDS: ATORVASTATIN 40 MG TAB PO SCH (21:06)
[2018-01-28] MEDS: ENALAPRIL 10 MG TAB PO SCH (21:06)
[2018-01-28] MEDS: ACETAMINOPHEN 500 MG TAB PO PRN (21:06)
[2018-01-28 21:25] LABS: Urine Microscopic Reflex NO UMIC
--- NOTE | 2018-01-29 00:32 | HP ---
Date of Admission: 01/28/2018 Primary Care Physician: Dr. Pinto. Financial Service Rep: Dr. Munroe. Code Status: Full. Chief Complaint: Palpitations, shortness of breath. History Of Present Illness: The patient is a 72-year-old female with past medical history of atrial fibrillation, who recently stopped anticoagulation due to surgery. The patient had carotid endarterectomy. She reports shortness of breath and palpitations for the past day starting night prior to admission. The patient states that symptoms are constant, moderate, progressively worsening. The patient came into the ER due to her worsening symptoms, no alleviating or aggravating factors. Upon arrival, her vital signs showed heart rate in the 170s. The patient's workup showed troponin of 0.07. Her potassium was low at 3.1. Her BNP was 5065. The patient was given metoprolol 5 mg IV x3 , which brought her heart rate down to 115 to 120s. She stated that her shortness of breath and chest tightness improved. The patient was then referred for admission. When seen in the ER, she was awake, alert, oriented x3 , in some mild distress. Past Medical History: Hypertension, osteoporosis, history of DC, atrial fibrillation, coronary artery disease, mitral valve prolapse, hyperlipidemia, history of DVT, arthritis, possible autoimmune disease. Past Surgical History: Cholecystectomy, hysterectomy, left hip surgery, left arm surgery with titanium jad, cardiac catheterization with stent placement, back surgery, broken sternum, tumor removal. Allergies: TO MORPHINE, PENICILLIN AND PROMETHAZINE. Medications: List reviewed. Social History: The patient denies any tobacco use, alcohol use or illicit drug use. Lives at home. Currently dependent in her activities of daily living. She is , has 4 children. Currently retired. Family History: Sister had hypertension. Mother had cancer and blood disorder. Father had lung disease and cancer. Review of Systems: Eleven-point system reviewed, negative except as per HPI. Physical Examination: Vital Signs: Temperature is 98.1, heart rate 169, respirations 24, blood pressure 156/102, O2 96% on room air. General: Awake, alert, oriented x3, some mild distress. Elderly female, somewhat ill-appearing. HEENT: Normocephalic, atraumatic. PERRLA. EOMI. Moist mucous membranes. Oropharynx is clear. Poor dentition. Conjunctiva anicteric. Neck: Supple. No JVD. Trachea midline. CVS: S1, S2. Irregularly irregular. Rapid rate. No murmurs. Peripheral pulses present. Respiratory: Moving air well bilaterally. The patient has some diminished breath sounds. Some crackles are heard. No wheezing. No use of accessory muscles. Gastrointestinal: Abdomen is soft, nontender, nondistended. Positive bowel sounds. No guarding or rigidity. Extremities: No clubbing, cyanosis. Trace pedal edema. No calf tenderness. Neurologic: Cranial nerves 2 through 12 intact grossly. No focal neurological deficit. Speech is normal. Sensation is intact to light touch. Psych: Mood is okay. Affect is full. Insight and judgment are good. Skin: No rashes. Normal skin turgor. Laboratory Data: Sodium 142, potassium 3.1, chloride 109, CO2 26, BUN 22, creatinine 1, glucose 99, calcium 8.7, magnesium 1.9. Troponin 0.07. BNP 5065. INR 1.06. WBC 5.1, H and H 11.3, 36.1, platelets 145. Chest x-ray shows moderate bilateral pulmonary opacities. Heart mildly enlarged. Small pleural effusions may be present indicating CHF. Assessment And Plan: A 72-year-old female with, 1. Atrial fibrillation with rapid ventricular response likely secondary to electrolyte abnormality, improved with metoprolol. Dr. Munroe has been consulted. He recommends starting Multaq and increasing dose of metoprolol to 50 b.i.d. The patient did receive digoxin in the ER. We will resume her anticoagulation, which has been held for surgery for carotid endarterectomy; however, that was in November. 2. Obesity. 3. Accelerated hypertension. Blood pressure has improved after the weight has come down. 4. Osteoporosis. 5. History of myocardial infarction, coronary artery disease, pauma artery and pauma heart without angina. 6. Troponin elevation 0.07, likely due to atrial fibrillation with rapid ventricular response. Continue to monitor. No chest pain currently. 7. Mitral valve prolapse. 8. Hyperlipidemia. 9. Diabetes. 10. History of deep venous thrombosis. 11. Osteoarthritis, generalized. 12. Gastrointestinal and deep venous thrombosis prophylaxis with PPI. We will resume home dose of anticoagulation. Plan: Admit the patient to Med/Surg and place as inpatient. No MPOA or living will SA/MODL Voice ID: [id number] MTDD
[2018-01-29 05:51] LABS: Absolute Monocytes 0.4 K/uL (0.1-1.3); Absolute Neutrophil 3.8 K/uL (1.8-8.0); Basophils % 0.7 % (0-1.3); Eosinophils % 2.1 % (0-4.4); Hematocrit 35.1 % (36.0-45.0); Lymphocytes % 18.8 % (15.3-44.8); MCH 27.8 pg (27.0-35.0); MCV 86.4 fL (80-100); MPV 11.4 fL (7.6-11.3); Monocytes % 7.8 % (3.3-12.3); RBC Red Blood Cell Count 4.06 M/uL (3.86-4.86)
[2018-01-29 06:05] LABS: Albumin 3.1 g/dL (3.4-5.0); Bilirubin Total 0.5 mg/dL (0.2-1.0); Protein, Total 6.5 g/dL (6.4-8.2)
[2018-01-29 06:09] LABS: Potassium 2.9 mmol/L (3.5-5.1)
--- NOTE | 2018-01-29 06:27 | EKG ---
Test Date: 2018-01-28 Test Time: 10:30:23 [place] Operator: TYLER MEASUREMENT RESULTS: Intervals: Rate: 156 PA: QRSD: 68 QT: 260 QTc: 419 [place]: P: PA: QRS: -41 T: 127 INTERPRETIVE STATEMENTS: Atrial fibrillation with rapid ventricular response Left axis deviation Nonspecific ST and T wave abnormality Abnormal ECG Compared to ECG 10/07/2017 22:02:37 Left-axis deviation now present ST (T wave) deviation now present Sinus rhythm no longer present Sinus arrhythmia no longer present Electronically Signed On 01-29-18 06:25:44 CDT by Umesh Ulloa
[2018-01-29] MEDS ORDERED: NA CHLORIDE 0.9% 500 ML ONE (06:46)
[2018-01-29] MEDS ORDERED: KCL 20 MEQ/100 mL IVPB 20 MEQ/100 ML BAG IV SCH (07:00)
--- NOTE | 2018-01-29 07:46 | ECHO ---
HEIGHT: 5 ft 2 in WEIGHT: 169 lb 10.24 oz DATE OF STUDY: 01/28/[address]: Frank Nicolas 2-DIMENSIONAL: YES M.MODE: YES DOPPLER: YES COLOR FLOW: YES TDS: NO PORTABLE: NO DEFINITY: NO BUBBLE STUDY: NO DIAGNOSIS: SHORTNESS OF BREATH CARDIAC HISTORY: CATHERIZATION: YES SURGERY: NO PROSTHETIC VALVE: NO PACEMAKER: NO MEASUREMENTS (cm) DIASTOLIC (NORMALS) SYSTOLIC (NORMALS) IVSd 1.2 (0.6-1.2) LA Diam 5.2 (1.9-4.0) LVEF 50-55% LVIDd 3.6 (3.5-5.7) LVIDs 3.1 (2.0-3.5) %FS 15% LVPWd 1.3 (0.6-1.2) Ao Diam 3.0 (2.0-3.7) 2 DIMENSIONAL ASSESSMENT: RIGHT ATRIUM: DILATED LEFT ATRIUM: DILATED RIGHT VENTRICLE: NORMAL LEFT VENTRICLE: LEFT VENTRICULAR HYPERTROPHY TRICUSPID VALVE: NORMAL MITRAL VALVE: MITRAL ANNULAR CALCIFICATION PULMONIC VALVE: NORMAL AORTIC VALVE: SCLEROSIS PERICARDIAL EFFUSION: NONE AORTIC ROOT: NORMAL LEFT VENTRICULAR WALL MOTION: NORMAL DOPPLER/COLOR FLOW: MILD AORTIC AND TRICUSPID REGURGITATION. ESTIMATED RIGHT VENTRICULAR SYSTOLIC PRESSURE 38mmHg. MILD PULMONARY HYPERTENSION. COMMENTS: NORMAL LEFT VENTRICULAR EJECTION FRACTION. DILATED LEFT AND RIGHT ATRIUM. LEFT VENTRICULAR HYPERTROPHY. MITRAL ANNULAR CALCIFICATION. MILD AORTIC AND TRICUSPID REGURGITATION. AORTIC SCLEROSIS WITH NO AORTIC STENOSIS. MILD PULMONARY HYPERTENSION. ATRIAL FIBRILLATION 110-120 BEATS PER MINUTE. TECHNOLOGIST: Bernard PARK
--- NOTE | 2018-01-29 07:47 | CON ---
Date of Consultation: 01/28/[address] Sims's service on 01/28/2018. I saw the patient on 01/28/2018. Reason For Consultation: Atrial fibrillation and congestive heart failure. History Of Present Illness: Ms. Harden is a 72-year-old. She is a patient of Dr. Ulloa, who has m ultiple medical problems including history of coronary artery disease, status post stents in the past . She also has a history of cerebrovascular disease in November 2017. She underwent a carotid endarter ectomy on the right by Dr. Seo. She has a history of mitral valve prolapse, paroxysmal atrial fibril lation as well as history of congestive heart failure. She came in with rapid atrial fibrillation wi th shortness of breath and chest tightness that has been going on for about 2-3 days. She is on aspi rin and Plavix for now and she was supposed to be on Multaq, but this is not listed on her medical re gimen. She has taken low-pressure statin and furosemide and then recently cut that half. She used t o take Xarelto at one point, but this has been held since her carotid surgery was done. The last jaz e she was seen by Dr. Ulloa in November, she was in normal sinus rhythm. Allergies: SHE IS ALLERGIC TO MORPHINE, PENICILLIN, AND COMPAZINE. Review of Systems: Negative. Social History: Negative. Family History: Noncontributory. Physical Examination: General: She appeared to be in mild respiratory distress. Vital Signs: Her heart rate was about 120, atrial fibrillation. She was afebrile. HEENT Exam: Negative. Neck: Supple without any lymphadenopathy or bruits, but she had JVD about 2 cm above the angle of th e jaw. Chest: Reveals some rales in both bases. Cardiac Exam: Revealed atrial fibrillation. Abdomen: Benign. Extremities: Revealed 1 to 2+ edema. Diagnostic Data: Chest x-ray showed CHF. EKG showed atrial fibrillation. Her troponin was 0.07. B FRAUD INVESTIGATOR was 5065. Her potassium was 3.1. Impression And Plan: 1.Atrial fibrillation with rapid ventricular response, paroxysmal. 2.Acute on chronic congestive heart failure, most likely diastolic. 3.History of cerebrovascular disease, status post cerebrovascular accident in November 2017. 4.Coronary artery disease, status post stent. 5.Mitral valve prolapse. 6.Elevated troponin and BNP secondary to congestive heart failure. 7.Hypokalemia. I discussed the case with Dr. Sims and Dr. Ulloa. We will put her back on the Multaq, keep her n.p .o., consider cardioversion, put her on Lovenox. She has already gotten IV Lopressor and I have give n 1 dose of digoxin, given IV Lasix, and an echocardiogram is pending. We may have to go to back on Xarelto when she gets discharged. I will discuss the case further with her physician. She was instr ucted on home salt restrictions and compliance with medication. 45 minutes of care were spent reviewing Mrs. Harden's record and discussing the case with her, nurse s, and her physician. We will follow her along. YIFAN Voice ID: [id number] Report ID: [id number]
[2018-01-29] MEDS ORDERED: POTASSIUM CL 40 MEQ in NA CHLORIDE 0.9% 500 ML IV SCH (08:00)
[2018-01-29] MEDS ORDERED: ENOXAPARIN 60 MG/0.6 ML SQ SCH (09:00)
[2018-01-29] MEDS: ATORVASTATIN 40 MG TAB PO SCH ×2 (09:00→21:17)
[2018-01-29] MEDS ORDERED: POTASSIUM 25 MEQ EFFERV TAB PO ONE (09:19)
[2018-01-29] MEDS: METOPROLOL TAR 50 MG TAB PO SCH ×2 (10:35→21:17)
[2018-01-29] MEDS: CLOPIDOGREL 75 MG TABLET PO SCH ×2 (10:36→21:17)
[2018-01-29] MEDS: ASPIRIN EC 81 MG TAB PO SCH (10:36)
[2018-01-29] MEDS: ENOXAPARIN 80 MG/0.8 ML SQ SCH ×2 (10:37→21:16)
[2018-01-29] MEDS: FUROSEMIDE 40 MG/4 ML VIAL IV SCH ×2 (10:37→17:00)
[2018-01-29] MEDS: DRONEDARONE 400 MG TAB PO SCH ×2 (10:47→21:17)
--- NOTE | 2018-01-29 12:15 | PN ---
Date of Progress Note: 01/29/2018 Subjective: The patient is seen and examined. Chart reviewed and case discussed with RN. The patient states she feels better. No longer having any chest tightness. Her shortness of breath is improved. The patient is still in AFib. Plan for cardioversion in a.m. and is still in AFib. Review of Systems: Negative except as above. Medications: List reviewed. Physical Examination: Vital Signs: Temperature 97.4, heart rate 79, blood pressure 105/60, respirations 16, O2 100% on 2 L via nasal cannula. General: Awake, alert, oriented x3. Obese female. CV: S1, S2. Irregularly irregular. Peripheral pulses present. Respiratory: Diminished breath sounds. Some crackles heard. No wheezing. Gastrointestinal: Abdomen is soft, nontender, nondistended. Positive bowel sounds. No guarding or rigidity. Extremities: No clubbing, cyanosis. Trace pedal edema improved. Neurologic: Nonfocal. Laboratory Data: Sodium 143, potassium 2.9, chloride 108, CO2 26, BUN 21, creatinine 1, glucose 76, calcium 8.5. WBC 5.4, H and H 11.3 and 35.1, platelets 144. Echocardiogram shows EF of 50% to 55%, left ventricular hypertrophy, mild pulmonary hypertension. Assessment And Plan: A 72-year-old female with: 1. Atrial fibrillation with rapid ventricular response. The patient's medications have been adjusted on metoprolol 50 b.i.d., and Multaq has been added. We will start on anticoagulation. Appreciate Dr. Ulloa' input. Tentative plan is for cardioversion in a.m. if continues to be in atrial fibrillation, now with controlled ventricular rate. 2. Obesity, BMI greater than 30. 3. Accelerated hypertension. Blood pressure improved. 4. CHF: acute diastolic dysfunction. CXR: Pulmonary edema, improved with Lasix. BNP was elevated. A chest x-ray showed pulmonary congestion. Echocardiogram reviewed shows EF of 50% to 55%. 5. Mild pulmonary hypertension. 6. Hypertensive heart disease. 7. Troponin elevation, likely secondary to atrial fibrillation. 8. History of coronary artery disease, [place] artery and [place] heart without angina. 9. Mitral valve prolapse. 10. Hyperlipidemia, mixed. We will continue statin. 11. Diabetes mellitus type 2. We will continue sliding scale insulin. 12. History of deep venous thrombosis. 13. Generalized osteoarthritis. 14. Gastrointestinal and deep venous thrombosis prophylaxis with PPI and Lovenox. /MILY Voice ID: [id number] Report ID: [id number] MTDD
--- NOTE | 2018-01-29 12:21 | PN ---
She feels much better. Heart rate is lower. She has been in AFib so long and I think we should anti coagulate her another day before trying the cardioversion. She is comfortable. Her heart rate is be tter. She inadvertently stopped Multaq. Apparently, Multaq was doing a good job controlling her Hayder b. We will continue the Multaq, Lovenox, and when she goes home, we will stop aspirin and Plavix and have her take Xarelto or Pradaxa or Eliquis. KENYA/MILY Voice ID: [id number] Report ID: [id number]
[2018-01-29] MEDS ORDERED: POTASSIUM CL SA 10 MEQ TAB PO ONE ×2 (17:00→23:27)
[2018-01-29] MEDS: ENALAPRIL 10 MG TAB PO SCH (21:00)
[2018-01-29] MEDS: ACETAMINOPHEN 500 MG TAB PO PRN (21:17)
[2018-01-30 05:41] LABS: Absolute Lymphocytes (CBC) 1.6 K/uL (0.7-4.9); Absolute Monocytes 0.7 K/uL (0.1-1.3); Absolute Neutrophil 3.7 K/uL (1.8-8.0); Basophils % 0.7 % (0-1.3); Eosinophils % 1.8 % (0-4.4); Hematocrit 36.9 % (36.0-45.0); Lymphocytes % 26.6 % (15.3-44.8); MCH 27.6 pg (27.0-35.0); MCV 86.5 fL (80-100); MPV 11.4 fL (7.6-11.3); Monocytes % 11.1 % (3.3-12.3); RBC Red Blood Cell Count 4.27 M/uL (3.86-4.86)
[2018-01-30 05:48] LABS: Albumin 3.1 g/dL (3.4-5.0); Bilirubin Total 0.4 mg/dL (0.2-1.0)
[2018-01-30] MEDS: FUROSEMIDE 40 MG/4 ML VIAL IV SCH (09:00)
[2018-01-30] MEDS: ENOXAPARIN 80 MG/0.8 ML SQ SCH ×2 (09:00→21:21)
[2018-01-30] MEDS: METOPROLOL TAR 50 MG TAB PO SCH ×2 (09:00→21:19)
[2018-01-30] MEDS ORDERED: MIDAZOLAM HCL 2 MG/2 ML INJ ONE ×2 (09:07→09:29)
[2018-01-30] MEDS ORDERED: FLUMAZENIL 0.1 MG/ML (5 mL VIAL) IV ONE (09:09)
--- NOTE | 2018-01-30 13:22 | PN ---
Date of Progress Note: 01/30/2018 Subjective: The patient seen and examined. Chart reviewed and case discussed with RN and Dr. Ulloa . The patient is still in atrial fibrillation. Will be going down for cardioversion. Review of Systems: Negative except as above. Medications: Reviewed. Physical Examination: Vital Signs: Temperature 97, heart rate 120, blood pressure 96/60, respirations 18, O2 90% on 3 L vi a nasal cannula. General: Awake, alert, oriented x3. Elderly female, obese. CV: S1, S2. Irregularly irregular. Peripheral pulses present. Respiratory: Clear to auscultation bilaterally. No wheezing or stridor. Gastrointestinal: Abdomen is soft, nontender, nondistended. Positive bowel sounds. Extremities: No clubbing, cyanosis. Trace pedal edema. Neurologic: Nonfocal. Laboratory Data: Sodium 144, potassium 4, chloride 108, CO2 28, BUN 24, creatinine 1.10, glucose 97, calcium 9, total bilirubin 0.4, albumin 3.1. WBC 6.1, H and H 11.8 and 36.9, platelets 167. Assessment And Plan: A 72-year-old female with: 1.Atrial fibrillation with RVR, rate is better controlled on Multaq and elevated dose of metoprolol. The patient denies any chest pain, tightness. Still somewhat short of breath. Dr. Ulloa on board . Plan is for cardioversion today. We will continue with Lovenox 1 mg/kg dose and switch over to Xa relto upon discharge or one of other newer agents like Eliquis. 2.Obesity, BMI greater than 30. 3.Congestive heart failure, acute diastolic dysfunction. We will continue with IV Lasix. We will d ecrease dose to 20 mg IV b.i.d. EF shows 50%-55%. 4.Accelerated hypertension. Blood pressure is improved, well-controlled. 5.Mild pulmonary hypertension. 6.Hypertensive heart disease. 7.Troponin elevation secondary to atrial fibrillation and congestive heart failure. 8.History of coronary artery disease [place] artery and [place] heart without angina. 9.Diarrhea. We will obtain stool studies to rule out Clostridium difficile. 10.Mitral valve prolapse. 11.Mixed hyperlipidemia. Continue statin. 12.Diabetes mellitus type 2. We will continue sliding scale insulin, [id number] with hyp erglycemia. 13.History of deep venous thrombosis, on Lovenox. 14.Generalized osteoarthritis. 15.Gastrointestinal and deep venous thrombosis prophylaxis with PPI and Lovenox. Plan: Transferred to ICU for cardioversion. /MODL Voice ID: [id number] Report ID: [id number]
[2018-01-30] MEDS: ASPIRIN EC 81 MG TAB PO SCH (13:41)
[2018-01-30] MEDS: ATORVASTATIN 40 MG TAB PO SCH ×2 (13:41→21:18)
[2018-01-30] MEDS: CLOPIDOGREL 75 MG TABLET PO SCH ×2 (13:41→21:20)
[2018-01-30] MEDS: DRONEDARONE 400 MG TAB PO SCH ×2 (13:42→21:20)
--- NOTE | 2018-01-30 13:58 | OP ---
Surgeon: Umesh Ulloa MD Procedure: Direct current cardioversion. Indication: Atrial fib. Procedure In Detail: The patient was brought to the ICU. She has been anticoagulated adequate lengt h of time and within 48 hours of the onset of her AFib. She had been anticoagulated with aspirin and Plavix before she had been on Multaq long enough to be loaded. She was sedated with 5 mg of Versed. Anterior-posterior paddles were placed on her chest. She was shocked with a single shock 200 joule s synchronized with the QRS complex. She emerged from that in sinus rhythm. She will remain on Love nox and Multaq today and tomorrow, and tomorrow we might be able to send her home on Multaq and Xarel to if she remains in sinus rhythm. Complications, none. KENYA/MILY Voice ID: [id number] Report ID: [id number]
--- NOTE | 2018-01-30 15:53 | EKG ---
Test Date: 2018-01-30 Test Time: 09:56:32 Microfiche Camera Operator: SIMON MEASUREMENT RESULTS: Intervals: Rate: 62 NM: 152 QRSD: 76 QT: 426 QTc: 432 [place]: P: 34 NM: 152 QRS: -25 T: 14 INTERPRETIVE STATEMENTS: Sinus rhythm with premature atrial complexes Possible Left atrial enlargement ST abnormality, possible digitalis effect Abnormal ECG Compared to ECG 01/28/2018 10:30:23 Atrial premature complex(es) now present Atrial fibrillation no longer present Left-axis deviation no longer present ST (T wave) deviation still present Electronically Signed On 01-30-18 15:53:04 CDT by Umesh Ulloa
[2018-01-30] MEDS: FUROSEMIDE 20 MG/ 2ML VIAL IV SCH (16:59)
[2018-01-30] MEDS: ENALAPRIL 10 MG TAB PO SCH (21:20)
[2018-01-31 05:36] LABS: Absolute Lymphocytes (CBC) 1.2 K/uL (0.7-4.9); Absolute Monocytes 0.6 K/uL (0.1-1.3); Absolute Neutrophil 3.6 K/uL (1.8-8.0); Basophils % 0.7 % (0-1.3); Hematocrit 32.6 % (36.0-45.0); Lymphocytes % 21.8 % (15.3-44.8); MCH 27.4 pg (27.0-35.0); MCV 86.9 fL (80-100); MPV 11.4 fL (7.6-11.3); Monocytes % 10.5 % (3.3-12.3); RBC Red Blood Cell Count 3.75 M/uL (3.86-4.86)
[2018-01-31 05:42] LABS: Albumin 2.9 g/dL (3.4-5.0); Bilirubin Total 0.5 mg/dL (0.2-1.0); Potassium 3.8 mmol/L (3.5-5.1); Protein, Total 6.3 g/dL (6.4-8.2)
[2018-01-31] MEDS ORDERED: POTASSIUM CL SA 10 MEQ TAB PO ONE (05:50)
[2018-01-31] MEDS: ASPIRIN EC 81 MG TAB PO SCH ×2 (09:00→10:11)
[2018-01-31] MEDS: FUROSEMIDE 20 MG/ 2ML VIAL IV SCH ×2 (09:00→10:11)
[2018-01-31] MEDS: CLOPIDOGREL 75 MG TABLET PO SCH ×2 (09:00→10:10)
[2018-01-31] MEDS: ENOXAPARIN 80 MG/0.8 ML SQ SCH ×2 (09:00→10:13)
[2018-01-31 09:14] VITALS: O2SAT 95
[2018-01-31 09:23] VITALS: BP 116/61; TEMP 98.4
[2018-01-31] MEDS: DRONEDARONE 400 MG TAB PO SCH (10:09)
[2018-01-31] MEDS: ATORVASTATIN 40 MG TAB PO SCH (10:09)
[2018-01-31] MEDS: METOPROLOL TAR 50 MG TAB PO SCH (10:10)
--- NOTE | 2018-01-31 12:00 | RAD REPORT ---
EXAM DESCRIPTION: RAD - Chest Pa And Lat (2 Views) - 01/31/2018 7:45 am CLINICAL HISTORY: CHF Chest pain. COMPARISON: Chest Single View dated 01/28/2018; Chest Single View dated 10/07/2017; Chest Pa And Lat (2 Views) dated 10/08/2016; CHEST PA AND LAT 2 VIEW dated 06/19/2015 FINDINGS: The lungs are diffusely emphysematous without focal infiltrate seen. The left costophrenic angle blunting is noted which could be a small pleural effusion or pleural thickening. The heart is upper limit normal in size. Diffuse osteopenia with wedge compression deformities lower thoracic spin e. Prominent dextroscoliosis of the thoracic spine is seen. Proximal left humeral hardware seen.
--- NOTE | 2018-02-01 02:17 | DS ---
Date of Discharge: 01/31/2018 Consultants: Dr. Ulloa. Procedure: Cardioversion. Admitting Diagnoses: 1.Atrial fibrillation with rapid ventricular response. 2.Obesity, BMI greater than 30. 3.Accelerated hypertension. 4.Osteoporosis. 5.History of myocardial infarction, coronary artery disease [place] artery and [place] heart without a ngina. 6.Troponin elevation, 0.07, likely secondary to atrial fibrillation. 7.Mitral valve prolapse. 8.Hyperlipidemia. 9.Diabetes mellitus type 2, insulin dependent, with hyperglycemia. 10.History of deep venous thrombosis. 11.Generalized osteoarthritis. Discharge Diagnoses: 1.Atrial fibrillation with rapid ventricular response, now in sinus rhythm. 2.Obesity, BMI greater than 30. 3.Congestive heart failure, acute diastolic dysfunction, EF 50% to 55%. 4.Accelerated hypertension, improved. 5.Hypokalemia, corrected. 6.Mild pulmonary hypertension. 7.Hypertensive heart disease. 8.Troponin elevation, secondary to atrial fibrillation and congestive heart failure. 9.History of coronary artery disease [place] artery and [place] heart without angina. 10.Diarrhea, resolved. 11.Mitral valve prolapse. 12.Mixed hyperlipidemia, on statin. 13.Diabetes mellitus type 2, insulin requiring with hyperglycemia. 14.History of deep venous thrombosis, on Xarelto. 15.Generalized osteoarthritis. Hospital Course: The patient is a 72-year-old female comes in with palpitations, shortness of breath , chest tightness. She was found to have troponin of 0.07. BNP was elevated. She was in atrial fib rillation with a rate in the 170s. She was treated with IV metoprolol. Her rate improved. Her medi cations were adjusted. She was started on Multaq and metoprolol dose was increased to 50 twice a day . She was seen by Cardiology, Dr. Munroe and Dr. Ulloa. The patient was started on Lovenox for an ticoagulation. Her anticoagulation had been held recently due to surgery for carotid artery disease. The patient was still in atrial fibrillation; therefore, she was taken for cardioversion by Dr. Ricky mejía as mentioned above. She returned to sinus rhythm after cardioversion. The patient was then stab le for discharge. She tolerated the Xarelto well which was switched over from Lovenox and did not co mplain of any further chest pain or shortness of breath. The patient did report some pain in her lef t foot due to her plantar fasciitis. I explained to her that she will need to do some stretching exe rcises of her foot to wear supportive shoes all the time to elevate her legs while she is seated. Sh e voiced understanding. In worse case scenario, the patient may need a steroid shot in the fascia, h owever, that is if conservative management fails. The patient to follow up with her PCP for further evaluation of her plantar fasciitis. Discharge Condition: Stable. Activity: As tolerated. Medications: As per medication reconciliation list. Followup: Follow up with primary care physician in 2-3 days. Follow up with chute tapper, Dr. Jacob dominguez, in 2 weeks. Return to ER for worsening condition. Diet: Low-sodium, fluid-restricted diet. Total Time: Total time spent discharging the patient was 45 minutes. Physical Examination: General: Awake, alert, oriented, no acute distress, obese female, elderly. CV: S1, S2. Regular rate and rhythm. Peripheral pulses present. Respiratory: Moving air well bilaterally. Gastrointestinal: Abdomen is soft, nontender, and nondistended. Positive bowel sounds. Extremities: No clubbing or cyanosis. Mild pedal edema. Neurologic: Nonfocal. SA/MODL Voice ID: [id number] Report ID: [id number]
== END 2018-01-31 10:59 | disposition home or self-care (01) | DRG 308 ==
LOC: ER 10:20 → ERHOLD 11:29 → 4TH 14:23 → 2ND 17:55 → 3RD-ICU 01-30 09:05 → 2ND 01-30 11:24
PROVIDERS: ADMIT Physician Assistant; ATTEND Family Medicine
PROC: 5A2204Z Restoration of Cardiac Rhythm, Single (ICD-10-PCS; principal; 2018-01-30)
DX: I48.0 Paroxysmal atrial fibrillation (principal); I50.33 Acute on chronic diastolic (congestive) heart failure; I11.0 Hypertensive heart disease with heart failure; I25.10 Atherosclerotic heart disease of native coronary artery without angina pectoris; E66.9 Obesity, unspecified; Z68.30 Body mass index [BMI] 30.0-30.9, adult; M81.0 Age-related osteoporosis without current pathological fracture; I25.2 Old myocardial infarction; E87.6 Hypokalemia; R74.8 Abnormal levels of other serum enzymes; M72.2 Plantar fascial fibromatosis; I34.1 Nonrheumatic mitral (valve) prolapse; E78.2 Mixed hyperlipidemia; M15.9 Polyosteoarthritis, unspecified; I27.20 Pulmonary hypertension, unspecified; R19.7 Diarrhea, unspecified; E78.5 Hyperlipidemia, unspecified; E11.9 Type 2 diabetes mellitus without complications; Z86.718 Personal history of other venous thrombosis and embolism; Z79.02 Long term (current) use of antithrombotics/antiplatelets; Z79.82 Long term (current) use of aspirin; Z88.5 Allergy status to narcotic agent; Z88.0 Allergy status to penicillin; Z88.8 Allergy status to other drugs, medicaments and biological substances; Z86.73 Personal history of transient ischemic attack (TIA), and cerebral infarction without residual deficits; Z95.5 Presence of coronary angioplasty implant and graft
CPT/HCPCS: 36415; 71045; 71046; 80048; 80053; 80076; 81003; 82550; 82553; 83735; 83880; 84132; 84484; 85025; 85610; 85730; 93005; 93306; 94760; 99285; J1160; J1650; J1940; J2250

== ENCOUNTER 2018-02-06 21:03 | Emergency (ER) | payer MEDICARE ==
--- OUTSIDE RECORDS SUMMARY | 2018-02-06 21:05 | XMS REPORT | Clinical Summary ---
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 (Primary Dx) 10/21/2017 Procedure Pass 10/21/2017 Surgery Max Seo, ENDARTERECTOMY,CAROTID 10/20/2017 Hospital Encounter Max Seo MD 10/20/2017 Office Visit Cardiology Max Seo, Right-sided carotid MD artery disease (HCC) (Primary Dx);Chronic atrial fibrillation (HCC);Occlusion of right carotid artery;Coronary artery disease involving [place] coronary artery of [place] heart, angina presence unspecified;Transient cerebral ischemia, unspecified type;Atrial fibrillation, unspecified type (HCC);Hyperlipidemia, unspecified hyperlipidemia type 10/20/2017 Anesthesia Event Stephen Blackburn MD after 02/05/2017 Social History Tobacco Use Types Packs/Day Years [...] INFLUENZA VACCINE 05/03/2018 Implants Implanted Type Area Baseball Coach Device Expiration Model / Identifier Date Serial / Lot Grft Hemshld Dbl Ovidio 0.3x3.0in [id number] - [id number] Graft/Pa Right: GETINGE 03/02/2022 [id number] / Implanted: Qty: 1 on 10/21/2017 by Max Seo MD [facility] Neck IND:SARIKA: CV [id number] / [id number] Procedures Procedure Name Priority Date/Time Associated Diagnosis Comments ENDARTERECTOMY,CAROTID 10/21/2017 7:30 AM CDT CAROTID STENOSIS after 02/05/2017 Results EKG-SCANNED (10/26/2017 12:40 PM)RHYTHM STRIP - [...] 1 % Specimen Performing Laboratory Blood [facility] [address] [address] CBC with platelet count + automated diff (10/23/2017 4:03 AM)Only the most recent of3 resultswithin the time period is included. Specimen Performing Laboratory Blood Narrative The following orders were created for panel order CBC with platelet count + automated diff. Procedure Abnormality Status --------- ------ CBC with platelet count ...[[id number]]AbnormalFinal result Please view results for these tests on the individual orders. Magnesium (10/23/2017 4:03 AM) Component Value Ref Range Magnesium 1.7 1.6 - 2.6 mg/dL Specimen Performing Laboratory Blood [place] [id number] Narrative [facility] with results Call [facility] [...] FOR DIALYSIS PATIENTS. Specimen Performing Laboratory Blood [address] [address] Narrative Call [facility] with results TRANSFUSION SERVICE REPORT - SCAN (10/21/2017 5:43 PM)Glucose-Stat Lab (2017 9:29 AM) Component Value Ref Range Glucose 105 70 - 110 mg/dL Specimen Performing Laboratory Blood, Arterial [address] [address] HGB/HCT (H&H)-Stat Lab (10/21/2017 9:29 AM) Component Value Ref Range Hemoglobin 11.2 (L) 12.0 - 15.0 g/dL Hematocrit 33.0 (L) 36.0 - 45.0 % Specimen Performing Laboratory Blood, Arterial [address] [address] Tissue Exam (10/21/2017 8:37 AM) Component Value Ref Range Case Report Surgical Pathology Report Case: [id number] Authorizing Provider:Max Seo MDCollected: 10/21/2017 0837 Ordering Location: [facility] Received: 10/21/2017 0931 PERIOPERATIVE SERVICES Pathologist: Gilbert Anderson MD Specimen:Carotid, Right, RIGHT CAROTID PLAQUE DIAGNOSIS ARTERY, RIGHT CAROTID, ENDARTERECTOMY: CALCIFIC ATHEROSCLEROTIC PLAQUE Signing Pathologist Direct Phone Line: [phone] CPT Code(s) 69019; 85296 CLINICAL HISTORY Carotid stenosis SPECIMEN SOURCE Right carotid plaque GROSS DESCRIPTION In saline labeled "carotid, right", description "right carotid plaque" is a 3.5 cm in length x 0.9 cm in diameter michel-white to yellow-ang cylindrical previously incised portion of fibrous tissue. Sectioning reveals focal calcification. Molder Sweep sections are submitted in cassette A1 for decalcification. DB/pl MICROSCOPIC DESCRIPTION Performed Specimen Performing Laboratory Tissue - Carotid, Right [facility] [address] [address] XR chest 1 view portable / bedside [...] MD Report Verified Date/Time:10/21/2017 07:29:40 Reading Location: [facility] Radiology Reading Room Procedure Note Interface, External [...] Verified Date/Time: 10/21/2017 07:29:40 Reading Location: [facility] [place] Radiology Reading Room Prothrombin time/INR (10/21/2017 7:05 AM) Component Value Ref Range Protime 13.5 11.7 - 14.7 seconds INR 1.0 <=5.9 Specimen [place] [address] Narrative RECOMMENDED COUMADIN/WARFARIN INR THERAPY RANGES STANDARD DOSE: 2.0 - 3.0 Includes: PROPHYLAXIS for venous thrombosis, systemic embolization; TREATMENT for venous thrombosis and/or pulmonary embolus. HIGH RISK: Target INR is 2.5-3.5 for patients with mechanical heart valves. Type and screen, automated (10/20/2017 9:49 AM) Component Value Ref Range ABO/RH AUTOMATED (BEAKER) A POSITIVE Ab Scrn NEGATIVE Specimen [place] [address] after 02/05/2017
--- OUTSIDE RECORDS SUMMARY | 2018-02-06 21:06 | XMS REPORT ---
:1945 Author Organization [facility] Address [address] [place] [address] [address] [place] [address] Care Team Providers Name Role Phone CARLOS SEO Unavailable Unavailable Problems This patient has no known problems. Allergies, Adverse Reactions, Alerts This patient has no known allergies or adverse reactions. Medications This patient has no known medications. Results Test Description Test Time Test Comments Text Results Atomic Results Result Comments TISSUE EXAM 2017-10-29 14:20:00 Surgical Pathology Report Case: [id number] Authorizing Provider: Carlos Seo MD Collected: 10/21/2017 0837 Ordering Location: [facility] Received: 10/21/2017 0931 PERIOPERATIVE SERVICES Pathologist: Gilbert Anderson MD Specimen: Carotid, Right, RIGHT CAROTID PLAQUE ARTERY, RIGHT CAROTID, ENDARTERECTOMY:CALCIFIC ATHEROSCLEROTIC PLAQUE Signing Pathologist Direct Phone Line: [phone] signed by Gilbert Anderson MD on 10/29/2017 at 2:20 [id number]; [id number] stenosisRight carotid plaqueIn saline labeled "carotid, right", description "right carotid plaque" is a 3.5 cm in length x 0.9 cm in diameter michel-white to yellow-ang cylindrical previously incised portion of fibrous tissue. Sectioning reveals focal calcification. Slime Plant Operator Helper sections are submitted in cassette A1 for decalcification. DB/plPerformed MAGNESIUM 2017-10-23 05:30:00 Test Item Value Reference Range Comments MAGNESIUM (BEAKER) (test gsmz=374) 1.7 mg/dL 1.6-2.6 [facility] with resultsCall [facility] with resultsBASIC METABOLIC [id number] 05:30: 00 Test Item Value Reference Range Comments SODIUM (BEAKER) (test 138 meq/L 136-145 ouun=307) POTASSIUM (BEAKER) (test 3.7 meq/L 3.5-5.1 bnfn=636) CHLORIDE (BEAKER) (test 103 meq/L 98-107 cezo=641) CO2 (BEAKER) (test 28 meq/L 22-29 mfbd=071) BLOOD UREA NITROGEN 11 mg/dL 7-21 (BEAKER) (test rtli=734) CREATININE (BEAKER) (test 0.95 mg/dL 0.57-1.25 zsfn=004) GLUCOSE RANDOM (BEAKER) 89 mg/dL 70-105 (test hxfw=624) CALCIUM (BEAKER) (test 9.0 mg/dL 8.4-10.2 fhmo=501) EGFR (BEAKER) (test 58 mL/min/1.73 sq m ESTIMATED GFR IS NOT uvfm=3201) ACCURATE CREATININE CLEARANCE IN PREDICTING GLOMERULAR FILTRATION RATE. ESTIMATED GFR IS NOT APPLICABLE FOR DIALYSIS PATIENTS. Call [facility] with resultsCall [facility] with resultsCBC W/PLT COUNT & AUTO [id number] 04:49:00 Test Item Value Reference Range Comments WHITE BLOOD CELL COUNT (BEAKER) (test bvxi=392) 5.6 K/ L 3.5-10.5 RED BLOOD CELL COUNT (BEAKER) (test ynip=200) 3.59 M/ L 3.93-5.22 HEMOGLOBIN (BEAKER) (test crwc=499) 10.1 GM/DL 11.2-15.7 HEMATOCRIT (BEAKER) (test ofij=824) 32.8 % 34.1-44.9 MEAN CORPUSCULAR VOLUME (BEAKER) (test jhfx=677) 91.4 fL 79.4-94.8 MEAN CORPUSCULAR HEMOGLOBIN (BEAKER) (test 28.1 pg 25.6-32.2 duye=312) MEAN CORPUSCULAR HEMOGLOBIN CONC (BEAKER) (test 30.8 GM/DL 32.2-35.5 rdoi=968) RED CELL DISTRIBUTION WIDTH (BEAKER) (test 15.2 % 11.7-14.4 ddie=572) PLATELET COUNT (BEAKER) (test mlgc=171) 113 K/CU MM 150-450 MEAN PLATELET VOLUME (BEAKER) (test ghvx=218) 13.5 fL 9.4-12.3 NUCLEATED RED BLOOD CELLS (BEAKER) (test 0 /100 WBC 0-0 lbge=333) NEUTROPHILS RELATIVE PERCENT (BEAKER) (test 63 % etbh=607) LYMPHOCYTES RELATIVE PERCENT (BEAKER) (test 23 % btvk=963) MONOCYTES RELATIVE PERCENT (BEAKER) (test 9 % pmee=142) EOSINOPHILS RELATIVE PERCENT (BEAKER) (test 4 % ueng=347) BASOPHILS RELATIVE PERCENT (BEAKER) (test 1 % dsva=291) NEUTROPHILS ABSOLUTE COUNT (BEAKER) (test 3.50 K/ L 1.56-6.13 zcxt=131) LYMPHOCYTES ABSOLUTE COUNT (BEAKER) (test 1.29 K/ L 1.18-3.74 vmqi=479) MONOCYTES ABSOLUTE COUNT (BEAKER) (test 0.52 K/ L 0.24-0.36 ijnp=020) EOSINOPHILS ABSOLUTE COUNT (BEAKER) (test 0.23 K/ L 0.04-0.36 kaaz=491) BASOPHILS ABSOLUTE COUNT (BEAKER) (test 0.03 K/ L 0.01-0.08 lltt=729) IMMATURE GRANULOCYTES-RELATIVE PERCENT (BEAKER) 0 % 0-1 (test kjys=1297) BASIC METABOLIC [id number] 05:38:00 Test Item Value Reference Range Comments SODIUM (BEAKER) (test 138 meq/L 136-145 kaom=584) POTASSIUM (BEAKER) (test 3.7 meq/L 3.5-5.1 napm=640) CHLORIDE (BEAKER) (test 107 meq/L 98-107 umqt=360) CO2 (BEAKER) (test 25 meq/L 22-29 hoib=249) BLOOD UREA NITROGEN 14 mg/dL 7-21 (BEAKER) (test adww=194) CREATININE (BEAKER) (test 0.76 mg/dL 0.57-1.25 sqks=837) GLUCOSE RANDOM (BEAKER) 88 mg/dL 70-105 (test fgwz=769) CALCIUM (BEAKER) (test 8.5 mg/dL 8.4-10.2 zyoe=104) EGFR (BEAKER) (test 75 mL/min/1.73 sq m ESTIMATED GFR IS NOT pgug=9688) ACCURATE CREATININE CLEARANCE IN PREDICTING GLOMERULAR FILTRATION RATE. ESTIMATED GFR IS NOT APPLICABLE FOR DIALYSIS PATIENTS. CBC W/PLT COUNT & AUTO [id number] 05:13:00 Test Item Value Reference Range Comments WHITE BLOOD CELL COUNT (BEAKER) (test mcwc=339) 3.8 K/ L 3.5-10.5 RED BLOOD CELL COUNT (BEAKER) (test uysf=912) 3.40 M/ L 3.93-5.22 HEMOGLOBIN (BEAKER) (test rvnp=719) 9.6 GM/DL 11.2-15.7 HEMATOCRIT (BEAKER) (test bruq=732) 31.3 % 34.1-44.9 MEAN CORPUSCULAR VOLUME (BEAKER) (test xaty=556) 92.1 fL 79.4-94.8 MEAN CORPUSCULAR HEMOGLOBIN (BEAKER) (test 28.2 pg 25.6-32.2 wnty=113) MEAN CORPUSCULAR HEMOGLOBIN CONC (BEAKER) (test 30.7 GM/DL 32.2-35.5 miwh=079) RED CELL DISTRIBUTION WIDTH (BEAKER) (test 15.4 % 11.7-14.4 uwlp=380) PLATELET COUNT (BEAKER) (test syvr=919) 91 K/CU MM 150-450 MEAN PLATELET VOLUME (BEAKER) (test ruot=730) 13.6 fL 9.4-12.3 NUCLEATED RED BLOOD CELLS (BEAKER) (test 0 /100 WBC 0-0 jbgi=302) NEUTROPHILS RELATIVE PERCENT (BEAKER) (test 64 % achv=150) LYMPHOCYTES RELATIVE PERCENT (BEAKER) (test 23 % gbpn=288) MONOCYTES RELATIVE PERCENT (BEAKER) (test 8 % zenv=908) EOSINOPHILS RELATIVE PERCENT (BEAKER) (test 4 % bsax=505) BASOPHILS RELATIVE PERCENT (BEAKER) (test 0 % rtmf=606) NEUTROPHILS ABSOLUTE COUNT (BEAKER) (test 2.45 K/ L 1.56-6.13 wnva=907) LYMPHOCYTES ABSOLUTE COUNT (BEAKER) (test 0.89 K/ L 1.18-3.74 cubp=680) MONOCYTES ABSOLUTE COUNT (BEAKER) (test ohdd=888) 0.30 K/ L 0.24-0.36 EOSINOPHILS ABSOLUTE COUNT (BEAKER) (test 0.14 K/ L 0.04-0.36 bqpf=701) BASOPHILS ABSOLUTE COUNT (BEAKER) (test qgtk=310) 0.01 K/ L 0.01-0.08 IMMATURE GRANULOCYTES-RELATIVE PERCENT (BEAKER) 1 % 0-1 (test delq=5017) GLUCOSE-STAT [id number] 09:53:00 Test Item Value Reference Range Comments GLUCOSE RANDOM (BEAKER) (test uonf=286) 105 mg/dL 70-110 HGB/HCT (H&H) - STAT [id number] 09:53:00 Test Item Value Reference Range Comments HEMOGLOBIN (BEAKER) (test lkcw=640) 11.2 g/dL 12.0-15.0 HEMATOCRIT (BEAKER) (test xqvn=655) 33.0 % 36.0-45.0 BASIC METABOLIC [id number] 07:45:00 Test Item Value Reference Range Comments SODIUM (BEAKER) (test 136 meq/L 136-145 tytv=563) POTASSIUM (BEAKER) (test 3.5 meq/L 3.5-5.1 fohs=041) CHLORIDE (BEAKER) (test 107 meq/L 98-107 ruag=197) CO2 (BEAKER) (test 21 meq/L 22-29 eqlf=465) BLOOD UREA NITROGEN 17 mg/dL 7-21 (BEAKER) (test lxqh=031) CREATININE (BEAKER) (test 0.78 mg/dL 0.57-1.25 cjdb=770) GLUCOSE RANDOM (BEAKER) 93 mg/dL 70-105 (test qfxi=011) CALCIUM (BEAKER) (test 9.6 mg/dL 8.4-10.2 gynv=680) EGFR (BEAKER) (test 73 mL/min/1.73 sq m ESTIMATED GFR IS NOT pyxv=0622) ACCURATE CREATININE CLEARANCE IN PREDICTING GLOMERULAR FILTRATION RATE. ESTIMATED GFR IS NOT APPLICABLE FOR DIALYSIS PATIENTS. RAD, CHEST, 1 VIEW, NON [id number] 07:29:00Reason for exam:-> baselineReason for exam:->pre opShould [...] Location: [facility] Reading Room PROTHROMBIN [id number] 07:23:00 Test Item Value Reference Range Comments PROTIME (BEAKER) (test bqjg=424) 13.5 seconds 11.7-14.7 INR (BEAKER) (test ctjx=459) 1.0 <=5.9 RECOMMENDED COUMADIN/WARFARIN INR THERAPY RANGESSTANDARD DOSE: 2.0 - 3.0 Includes: PROPHYLAXIS forvenous thrombosis, systemic embolization; TREATMENT for venous thrombosis and/or pulmonary embolus.HIGH RISK: Target INR is 2.5-3.5 for patients with mechanical heart valves.CBC W/PLT COUNT & AUTO [id number] 10:12:00 Test Item Value Reference Range Comments WHITE BLOOD CELL COUNT (BEAKER) (test pjry=258) 5.4 K/ L 3.5-10.5 RED BLOOD CELL COUNT (BEAKER) (test jjfl=515) 4.39 M/ L 3.93-5.22 HEMOGLOBIN (BEAKER) (test zwjn=177) 12.2 GM/DL 11.2-15.7 HEMATOCRIT (BEAKER) (test cplp=528) 39.1 % 34.1-44.9 MEAN CORPUSCULAR VOLUME (BEAKER) (test fiyd=510) 89.1 fL 79.4-94.8 MEAN CORPUSCULAR HEMOGLOBIN (BEAKER) (test 27.8 pg 25.6-32.2 mqyp=767) MEAN CORPUSCULAR HEMOGLOBIN CONC (BEAKER) (test 31.2 GM/DL 32.2-35.5 ihvx=757) RED CELL DISTRIBUTION WIDTH (BEAKER) (test 14.7 % 11.7-14.4 fmdq=728) PLATELET COUNT (BEAKER) (test lxzj=581) 151 K/CU MM 150-450 MEAN PLATELET VOLUME (BEAKER) (test gzgu=465) 13.0 fL 9.4-12.3 NUCLEATED RED BLOOD CELLS (BEAKER) (test 0 /100 WBC 0-0 hlur=006) NEUTROPHILS RELATIVE PERCENT (BEAKER) (test 72 % shcm=160) LYMPHOCYTES RELATIVE PERCENT (BEAKER) (test 18 % zytn=330) MONOCYTES RELATIVE PERCENT (BEAKER) (test 7 % mvnc=541) EOSINOPHILS RELATIVE PERCENT (BEAKER) (test 2 % dyeg=470) BASOPHILS RELATIVE PERCENT (BEAKER) (test 1 % gdho=680) NEUTROPHILS ABSOLUTE COUNT (BEAKER) (test 3.89 K/ L 1.56-6.13 wrqn=689) LYMPHOCYTES ABSOLUTE COUNT (BEAKER) (test 0.99 K/ L 1.18-3.74 slku=457) MONOCYTES ABSOLUTE COUNT (BEAKER) (test 0.37 K/ L 0.24-0.36 ehmv=604) EOSINOPHILS ABSOLUTE COUNT (BEAKER) (test 0.08 K/ L 0.04-0.36 muuv=929) BASOPHILS ABSOLUTE COUNT (BEAKER) (test 0.03 K/ L 0.01-0.08 tito=252) IMMATURE GRANULOCYTES-RELATIVE PERCENT (BEAKER) 1 % 0-1 (test tsmn=9416)
[2018-02-06] MEDS ORDERED: CEFTRIAXONE/SWI 1gm 1 GM/10 ML SYR ONE ×2 (22:42→22:45)
[2018-02-06] MEDS ORDERED: FOLIC ACID 5 MG/ML VIAL ONE (22:42)
[2018-02-06] MEDS ORDERED: NA CHLORIDE 0.9% 50 ML IV ONE (22:43)
[2018-02-06 23:40] LABS: Absolute Lymphocytes (CBC) 1.1 K/uL (0.7-4.9); Absolute Monocytes 0.8 K/uL (0.1-1.3); Basophils % 0.9 % (0-1.3); Eosinophils % 0.9 % (0-4.4); Hematocrit 31.3 % (36.0-45.0); Lymphocytes % 14.1 % (15.3-44.8); MCV 85.4 fL (80-100); MPV 10.6 fL (7.6-11.3); Monocytes % 10.2 % (3.3-12.3); RBC Red Blood Cell Count 3.66 M/uL (3.86-4.86)
[2018-02-06 23:41] LABS: Protime INR 1.16
[2018-02-06 23:45] LABS: Urine Blood NEGATIVE (NEG); Urine Glucose NEGATIVE (NEG); Urine Protein NEGATIVE (NEG); Urine Specific Gravity >1.030 (1.005-1.030)
[2018-02-07 00:25] LABS: ALT/SGPT 22 U/L (12-78); AST/SGOT 23 U/L (15-37); Albumin 2.9 g/dL (3.4-5.0); Alkaline Phosphatase 87 U/L (45-117); BUN Blood Urea Nitrogen 14 mg/dL (7-18); Bicarbonate 25 mmol/L (21-32); Bilirubin Direct 0.1 mg/dL (0-0.2); Bilirubin Total 0.6 mg/dL (0.2-1.0); CKMB Creatine Kinase MB < 1.0 ng/mL (0.3-3.6); Creatine Phosphokinase 45 U/L (26-192); Glucose Level 109 mg/dL (74-106); Magnesium 1.9 mg/dL (1.8-2.4); NT PRO-BNP 999 pg/mL (<125); Potassium 3.7 mmol/L (3.5-5.1); Protein, Total 7.4 g/dL (6.4-8.2); Sodium Level 135 mmol/L (136-145)
[2018-02-07] MEDS ORDERED: ASPIRIN EC 81 MG TAB PO ONE (00:30)
--- NOTE | 2018-02-07 00:58 | ER ---
Nurse's Notes [facility] Name: Jenniffer Harden Age: 72 yrs Sex: Female : 1945 Arrival Date: 02/06/2018 Time: 21:07 Bed 28 Private MD: Kasey Pinto Diagnosis: Fever, unspecified;Weakness-left leg;Cerebral infarction-greater than 24 hours;Cystitis;Spinal stenosis, thoracic region;Atrial fibrillation and flutter-hx of Presentation: 02/06 21:30 Presenting complaint: Patient states: she has left leg weakness, nausea, dirrhea with mg2 hip and heel pain since yesterday. she also got fever at home 101.7 but subsided without taking any medication. she was just discharged last Thursday for Afib. she is for hemorrhoidectomy on Thursday. Transition of care: patient was not received from another setting of care. No acute neurological deficit is noted. Risk Assessment: Do you want to hurt yourself or someone else? Patient reports no desire to harm self or others. Initial Sepsis Screen: Does the patient meet any 2 criteria? No. Patient's initial sepsis screen is negative. Does the patient have a suspected source of infection? No. Patient's initial sepsis screen is negative. Care prior to arrival: None. 21:30 Method Of Arrival: Wheelchair mg2 21:30 Acuity: RUTHIE 3 mg2 22:48 Onset of symptoms. Onset of symptoms was February 05, 2018. mg2 02/07 01:00 Pre-hospital glucose is not applicable to this patient. mg2 Triage Assessment: 00:50 The onset of the patients symptoms was February 05, 2018 at 06:00. General: Appears in no mg2 apparent distress. comfortable. Neuro: Reports numbness in left leg. Stroke Activation: Physician: Stroke Attending; Name: ; Notified At: ; Arrived At: Physician: Chief Stroke Resident; Name: ; Notified At: ; Arrived At: Physician: Stroke Resident; Name: ; Notified At: ; Arrived At: Physician: ED Attending; Name: ; Notified At: ; Arrived At: Physician: ED Resident; Name: ; Notified At: ; Arrived At: 02:07 not done- symptoms is almost 24 hours already mg2 Historical: - Allergies: 02/06 21:41 Morphine; mg2 21:41 PENICILLINS; mg2 21:41 Phenergan; mg2 - Home Meds: 21:41 aspirin 81 mg Oral TbEC 1 tab once daily [Active]; atorvastatin 40 mg Oral tab 1 tab mg2 once daily [Active]; clopidogrel 75 mg Oral tab 1 tab once daily [Active]; enalapril maleate 5 mg Oral tab 1 tab once daily [Active]; furosemide 40 mg Oral tab 1 tab once daily [Active]; metoprolol tartrate 25 mg Oral tab 1 tab once daily [Active]; - PMHx: 21:41 Arthritis; Hypertension; Atrial Fib; Myocardial infarction; mitral valve prolapse; mg2 Osteoporosis; - PSHx: 02/07 01:53 hip surgery; Carotid surgery; hand surgery; mg2 - Immunization history:: Flu vaccine is not up to date. - Social history:: Smoking status: Patient/guardian denies using tobacco, Patient/guardian denies using alcohol, street drugs, IV drugs. - Ebola Screening: : No symptoms or risks identified at this time. - Family history:: not pertinent. Screenin/07 21:43 Abuse screen: Denies threats or abuse. Denies injuries from another. Nutritional mg2 screening: No deficits noted. Tuberculosis screening: No symptoms or risk factors identified. Fall Risk Gait- Weak (10 pts.). Assessment: 22:46 General: Appears in no apparent distress. comfortable, Behavior is calm, cooperative. mg2 Pain: Complains of pain in left leg. Neuro: Level of Consciousness is awake, alert, obeys commands, Oriented to person, place, time, situation. Cardiovascular: Capillary refill < 3 seconds Patient's skin is warm and dry. Respiratory: Airway is patent Respiratory effort is even, unlabored, Respiratory pattern is regular, symmetrical. GI: : No signs and/or symptoms were reported regarding the genitourinary system. EENT: No signs and/or symptoms were reported regarding the EENT system. Derm: Skin is intact, Skin is pink, warm \T\ dry. normal. Musculoskeletal: Circulation, motion, and sensation intact. 02/07 00:32 Reassessment: Patient appears in no apparent distress at this time. Patient and/or mg2 family updated on plan of care and expected duration. Pain level reassessed. Patient is alert, oriented x 3, equal unlabored respirations, skin warm/dry/pink. 00:46 Patient has been NPO before screening. The patient does not exhibit slurred or garbled mg2 speech. The patient is not exhibiting difficulty speaking. The patient does not exhibit difficulty understanding words. The patient is able to swallow own secretions with no drooling or need for suction. Patient tolerated one teaspoon of water. No drooling, immediate coughing, gurgling, or clearing of the throat was noted. The patient passed the bedside swallow screening. Oral medications may be given as ordered. Contact Physician for further diet orders. 00:48 The patient tolerated 90mL of water. No drooling, immediate coughing, gurgling, or mg2 clearing of the throat was noted. 01:33 Reassessment: report given to Jeancarlos Gage of [facility]. mg2 02:05 Provider notified of bedside swallow screening results: Francisco Gonzalez MD. mg2 02:05 T-PA (Activase) Screening:. mg2 Vital Signs: 02/06 21:42 BP 133 / 87; Pulse 80; Resp 18; Temp 98.8; Pulse Ox 94% ; Weight 77.11 kg; Height 5 ft. mg2 2 in. (157.48 cm); Pain 2/10; 23:58 BP 108 / 59; Pulse 89; Resp 18; Pulse Ox 95% on R/A; Pain 1/10; mg2 02/07 00:55 BP 119 / 74; Pulse 75; Resp 18; Pulse Ox 96% on R/A; Pain 1/10; mg2 01:50 Pulse 74; Resp 18; Pulse Ox 96% ; mg2 02/06 21:42 Body Mass Index 31.09 (77.11 kg, 157.48 cm) mg2 NIH Stroke Scale Scores: 02/06 22:11 NIHSS Score: 2 [facility] 02/07 00:46 NIHSS Score: 2 mg2 ED Course: 02/06 21:07 Patient arrived in ED. am2 21:08 Kasey Pinto MD is Private Physician. am2 21:12 Francisco Gonzalez MD is Attending Physician. kaveh 21:26 Jd Wolfe, INOCENCIO is Primary Nurse. mg2 21:39 Triage completed. mg2 21:43 Arm band placed on. mg2 22:[address] via wheelchair. cw1 22:33 CT completed. Patient moved back from CT. cw1 22:39 CT Head Brain wo Cont In Process Unspecified. EDMS 22:42 CT Stone Protocol In Process Unspecified. EDMS 22:48 XRAY Chest (1 view) In Process Unspecified. EDMS 22:48 Patient has correct armband on for positive identification. mg2 23:00 Inserted saline lock: 20 gauge in left forearm, using aseptic technique. Blood mg2 collected. 23:26 Urine Dipstick--Ancillary (enter results) Sent. mg2 02/07 01:40 No provider procedures requiring assistance completed. Patient transferred, IV remains mg2 in place. Administered Medications: 02/06 23:19 Drug: foLIC Acid 1 mg Route: IVPB; Site: left forearm; mg2 02/07 00:15 Follow up: Response: No adverse reaction; IV Status: Completed infusion mg2 02/06 23:19 Drug: Rocephin - (cefTRIAXone) 1 grams Route: IVPB; Infused Over: 30 mins; Site: left mg2 forearm; 02/07 00:15 Follow up: Response: No adverse reaction; IV Status: Completed infusion mg2 00:32 Drug: Aspirin 162 mg Route: PO; mg2 01:42 Follow up: Response: No adverse reaction; Pain is decreased mg2 01:42 Drug: Tylenol 650 mg Route: PO; mg2 02:09 Follow up: Response: No adverse reaction; Pain is decreased mg2 Point of Care Testin:00 was not taken- lab results available mg2 Ranges: Outcome: 00:57 ER care complete, transfer ordered by . kaveh 02:04 Transferred by ground EMS to [facility]. mg2 02:04 Condition: stable mg2 02:04 Instructed on the need for transfer, Demonstrated understanding of instructions. 02:09 Patient left the ED. mg2 NIH Stroke Scale - NIH Stroke Score Date: 02/06/2018 Time: 22:11 Total Score = 2 1a. Level of Consciousness (LOC) - 0(Alert) 1b. Level of Consciousness (LOC) (Year \T\ Age) - 0(Both) 1c. LOC Commands (Open \T\ Closes Eyes/Satellite Dish Installer) - 0(Both) 2. Best Gaze (Lateral Gaze Paresis) - 0(Normal) 3. Visual Field Loss - 0(No visual loss) 4. Facial Palsy - 0(Normal) 5a. Left Arm: Motor (10-second hold) - 0(No drift) 5b. Right Arm: Motor (10-second hold) - 0(No drift) 6a. Left Leg: Motor (5-second hold - always test supine) - 1(Drift) 6b. Right Leg: Motor (5-second hold - always test supine) - 0(No drift) 7. Limb Ataxia (finger/nose \T\ heel/zelaya - test with eyes open) - 1(Present in one limb) 8. Sensory Loss (pinprick arms/legs/face) - 0(Normal) 9. Best Language: Aphasia (description/naming/reading) - 0(No aphasia) 10. Dysarthria (speech clarity - read or repeat words) - 0(Normal) 11. Extinction and Inattention (visual/tactile/auditory/spatial/personal) - 0(No abnormality) Initials: kaveh NIH Stroke Scale - NIH Stroke Score Date: 02/07/2018 Time: 00:46 Total Score = 2 1a. Level of Consciousness (LOC) - 0(Alert) 1b. Level of Consciousness (LOC) (Year \T\ Age) - 0(Both) 1c. LOC Commands (Open \T\ Closes Eyes/Satellite Dish Installer) - 0(Both) 2. Best Gaze (Lateral Gaze Paresis) - 0(Normal) 3. Visual Field Loss - 0(No visual loss) 4. Facial Palsy - 0(Normal) 5a. Left Arm: Motor (10-second hold) - 0(No drift) 5b. Right Arm: Motor (10-second hold) - 0(No drift) 6a. Left Leg: Motor (5-second hold - always test supine) - 1(Drift) 6b. Right Leg: Motor (5-second hold - always test supine) - 0(No drift) 7. Limb Ataxia (finger/nose \T\ heel/zelaya - test with eyes open) - 1(Present in one limb) 8. Sensory Loss (pinprick arms/legs/face) - 0(Normal) 9. Best Language: Aphasia (description/naming/reading) - 0(No aphasia) 10. Dysarthria (speech clarity - read or repeat words) - 0(Normal) 11. Extinction and Inattention (visual/tactile/auditory/spatial/personal) - 0(No abnormality) Initials: mg2 Signatures: Dispatcher [employer] Francisco Quinn MD MD cha Woodley, Crystal cw1 Deedee Cee am2 Jd Wolfe, RN RN mg2 Corrections: (The following items were deleted from the chart) 02:05 01:33 Transferred mg2 mg2
--- NOTE | 2018-02-07 00:58 | EDPHYS ---
Physician Documentation [facility] Name: Jenniffer Harden Age: 72 yrs Sex: Female : 1945 Arrival Date: 02/06/2018 Time: 21:07 Bed 28 Private MD: Kasey Pinto ED Physician Francisco Gonzalez HPI: 02/06 22:11 This 72 yrs old Female presents to ER via Wheelchair with complaints of kaveh Weakness - LEG, Back Pain, Fever. 22:11 The patient presents to the emergency department with difficulty standing, the patient kaveh falls to the left. Onset: The symptoms/episode began/occurred yesterday. Context: occurred at home. Associated signs and symptoms: The patient has no apparent associated signs or symptoms. Severity of symptoms: At their worst the symptoms were moderate in the emergency department the symptoms are unchanged. Patient's baseline: Neuro: alert and fully oriented. The patient has not experienced similar symptoms in the past. Historical: - Allergies: 21:41 Morphine; mg2 21:41 PENICILLINS; mg2 21:41 Phenergan; mg2 - Home Meds: 21:41 aspirin 81 mg Oral TbEC 1 tab once daily [Active]; atorvastatin 40 mg Oral tab 1 tab mg2 once daily [Active]; clopidogrel 75 mg Oral tab 1 tab once daily [Active]; enalapril maleate 5 mg Oral tab 1 tab once daily [Active]; furosemide 40 mg Oral tab 1 tab once daily [Active]; metoprolol tartrate 25 mg Oral tab 1 tab once daily [Active]; - PMHx: 21:41 Arthritis; Hypertension; Atrial Fib; Myocardial infarction; mitral valve prolapse; mg2 Osteoporosis; - PSHx: 02/07 01:53 hip surgery; Carotid surgery; hand surgery; mg2 - Immunization history:: Flu vaccine is not up to date. - Social history:: Smoking status: Patient/guardian denies using tobacco, Patient/guardian denies using alcohol, street drugs, IV drugs. - Ebola Screening: : No symptoms or risks identified at this time. - Family history:: not pertinent. ROS: 02/06 22:11 Constitutional: Negative for fever, chills, and weight loss, Eyes: Negative for injury, kaveh pain, redness, and discharge, ENT: Negative for injury, pain, and discharge, Neck: Negative for injury, pain, and swelling, Cardiovascular: Negative for chest pain, palpitations, and edema, Respiratory: Negative for shortness of breath, cough, wheezing, and pleuritic chest pain, Abdomen/GI: Negative for abdominal pain, nausea, vomiting, diarrhea, and constipation, : Negative for injury, bleeding, discharge, and swelling, Skin: Negative for injury, rash, and discoloration, Psych: Negative for depression, anxiety, suicide ideation, homicidal ideation, and hallucinations, Allergy/Immunology: Negative for hives, rash, and allergies, Endocrine: Negative for neck swelling, polydipsia, polyuria, polyphagia, and marked weight changes, Hematologic/Lymphatic: Negative for swollen nodes, abnormal bleeding, and unusual bruising. Back: Positive for flank pain, bilaterally. Neuro: Positive for weakness, of the left leg. Exam: 22:11 Constitutional: This is a well developed, well nourished patient who is awake, alert, kaveh and in no acute distress. Head/Face: Normocephalic, atraumatic. Eyes: Pupils equal round and reactive to light, extra-ocular motions intact. Lids and lashes normal. Conjunctiva and sclera are non-icteric and not injected. Cornea within normal limits. Periorbital areas with no swelling, redness, or edema. ENT: Nares patent. No nasal discharge, no septal abnormalities noted. Tympanic membranes are normal and external auditory canals are clear. Oropharynx with no redness, swelling, or masses, exudates, or evidence of obstruction, uvula midline. Mucous membranes moist. Neck: Trachea midline, no thyromegaly or masses palpated, and no cervical lymphadenopathy. Supple, full range of motion without nuchal rigidity, or vertebral point tenderness. No Meningismus. Chest/axilla: Normal chest wall appearance and motion. Nontender with no deformity. No lesions are appreciated. Cardiovascular: Regular rate and rhythm with a normal S1 and S2. No gallops, murmurs, or rubs. Normal PMI, no JVD. No pulse deficits. Respiratory: Lungs have equal breath sounds bilaterally, clear to auscultation and percussion. No rales, rhonchi or wheezes noted. No increased work of breathing, no retractions or nasal flaring. Abdomen/GI: Soft, non-tender, with normal bowel sounds. No distension or tympany. No guarding or rebound. No evidence of tenderness throughout. Female : Normal external genitalia. Skin: Warm, dry with normal turgor. Normal color with no rashes, no lesions, and no evidence of cellulitis. MS/ Extremity: Pulses equal, no cyanosis. Neurovascular intact. Full, normal range of motion. Psych: Awake, alert, with orientation to person, place and time. Behavior, mood, and affect are within normal limits. 22:11 Back: pain, that is mild, of the left low back, left mid back, right mid back and right low back. 22:11 Neuro: Orientation: is normal, appropriate for stated age, no acute changes, Mentation: is normal, appropriate for stated age, no acute changes, Memory: is normal, appropriate for stated age, no acute changes, Cranial nerves: grossly normal, is grossly normal based on the patient's age, no acute changes, Cerebellar function: is grossly normal, is grossly normal based on the patient's age, no acute changes, Motor: moves all fours, Gait: not tested. Deep tendon reflexes are 2+ (normal) in the bilateral brachioradialis, bicep, tricep and patellar and Achilles tendons, seizure activity, is not displayed by the patient. Vital Signs: 21:42 BP 133 / 87; Pulse 80; Resp 18; Temp 98.8; Pulse Ox 94% ; Weight 77.11 kg; Height 5 ft. mg2 2 in. (157.48 cm); Pain 2/10; 23:58 BP 108 / 59; Pulse 89; Resp 18; Pulse Ox 95% on R/A; Pain 1/10; mg2 02/07 00:55 BP 119 / 74; Pulse 75; Resp 18; Pulse Ox 96% on R/A; Pain 1/10; mg2 01:50 Pulse 74; Resp 18; Pulse Ox 96% ; mg2 02/06 21:42 Body Mass Index 31.09 (77.11 kg, 157.48 cm) [facility] NIH Stroke Scale Scores: 02/06 22:11 NIHSS Score: 2 [facility] 02/07 00:46 NIHSS Score: 2 mg2 MDM: 02/06 21:12 Patient medically screened. [facility] 22:15 Data reviewed: vital signs, nurses notes, lab test result(s), EKG, radiologic studies, [facility] CT scan, plain films. 02/06 22:08 Order name: Basic Metabolic Panel [facility] 02/06 22:08 Order name: CBC with Diff; Complete Time: 00:16 [facility] 02/06 22:08 Order name: Ckmb [facility] 02/06 22:08 Order name: CPK [facility] 02/06 22:08 Order name: LFT's [facility] 02/06 22:08 Order name: Magnesium [facility] 02/06 22:08 Order name: NT PRO-BNP [facility] 02/06 22:08 Order name: PT-INR; Complete Time: 00:16 [facility] 02/06 22:08 Order name: Ptt, Activated; Complete Time: 00:16 [facility] 02/06 22:08 Order name: Troponin (emerg Dept Use Only); Complete Time: 00:16 [facility] 02/06 22:08 Order name: Blood Culture Adult (2) [facility] 02/06 22:08 Order name: CRP [facility] 02/06 22:08 Order name: Urine Culture [facility] 02/06 22:49 Order name: Urine Dipstick--Ancillary (enter results) rg2 02/06 22:08 Order name: XRAY Chest (1 view) [facility] 02/06 22:08 Order name: EKG; Complete Time: 22:09 [facility] 02/06 22:08 Order name: Cardiac monitoring; Complete Time: 23:26 [facility] 02/06 22:08 Order name: EKG - Nurse/Tech; Complete Time: 23:26 [facility] 02/06 22:08 Order name: IV Saline Lock; Complete Time: 23:26 [facility] 02/06 22:08 Order name: Labs collected and sent; Complete Time: 23:26 [facility] 02/06 22:08 Order name: O2 Per Protocol; Complete Time: 23:26 [facility] 02/06 22:08 Order name: O2 Sat Monitoring; Complete Time: 23:26 [facility] 02/06 22:08 Order name: Urine Dipstick-Ancillary (obtain specimen); Complete Time: 22:49 [facility] 02/06 22:08 Order name: CT Head Brain wo Cont [facility] 02/06 22:08 Order name: CT Stone Protocol [facility] 02/06 22:49 Order name: Urine Dipstick-Ancillary; Complete Time: 00:16 EDMS Administered Medications: 23:19 Drug: foLIC Acid 1 mg Route: IVPB; Site: left forearm; mg2 02/07 00:15 Follow up: Response: No adverse reaction; IV Status: Completed infusion mg2 02/06 23:19 Drug: Rocephin - (cefTRIAXone) 1 grams Route: IVPB; Infused Over: 30 mins; Site: left mg2 forearm; 02/07 00:15 Follow up: Response: No adverse reaction; IV Status: Completed infusion mg2 00:32 Drug: Aspirin 162 mg Route: PO; mg2 01:42 Follow up: Response: No adverse reaction; Pain is decreased mg2 01:42 Drug: Tylenol 650 mg Route: PO; mg2 02:09 Follow up: Response: No adverse reaction; Pain is decreased mg2 Point of Care Testin:00 was not taken- lab results available mg2 Ranges: Critical Glucose Levels:Adult <50 mg/dl or >400 mg/dl <40 mg/dl or >180 mg/dl Disposition: 02/07/18 00:57 Transfer ordered to [facility]. 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 - Reason for transfer: Higher level of care. - Accepting physician is to [facility]. - Condition is Fair. - Problem is new. - Symptoms have improved. NIH Stroke Scale - NIH Stroke Score Date: 02/06/2018 Time: 22:11 Total Score = 2 1a. Level of Consciousness (LOC) - 0(Alert) 1b. Level of Consciousness (LOC) (Year \T\ Age) - 0(Both) 1c. LOC Commands (Open \T\ Closes Eyes/Freelance Digital Project Manager) - 0(Both) 2. Best Gaze (Lateral Gaze Paresis) - 0(Normal) 3. Visual Field Loss - 0(No visual loss) 4. Facial Palsy - 0(Normal) 5a. Left Arm: Motor (10-second hold) - 0(No drift) 5b. Right Arm: Motor (10-second hold) - 0(No drift) 6a. Left Leg: Motor (5-second hold - always test supine) - 1(Drift) 6b. Right Leg: Motor (5-second hold - always test supine) - 0(No drift) 7. Limb Ataxia (finger/nose \T\ heel/zelaya - test with eyes open) - 1(Present in one limb) 8. Sensory Loss (pinprick arms/legs/face) - 0(Normal) 9. Best Language: Aphasia (description/naming/reading) - 0(No aphasia) 10. Dysarthria (speech clarity - read or repeat words) - 0(Normal) 11. Extinction and Inattention (visual/tactile/auditory/spatial/personal) - 0(No abnormality) Initials: kaveh NIH Stroke Scale - NIH Stroke Score Date: 02/07/2018 Time: 00:46 Total Score = 2 1a. Level of Consciousness (LOC) - 0(Alert) 1b. Level of Consciousness (LOC) (Year \T\ Age) - 0(Both) 1c. LOC Commands (Open \T\ Closes Eyes/Freelance Digital Project Manager) - 0(Both) 2. Best Gaze (Lateral Gaze Paresis) - 0(Normal) 3. Visual Field Loss - 0(No visual loss) 4. Facial Palsy - 0(Normal) 5a. Left Arm: Motor (10-second hold) - 0(No drift) 5b. Right Arm: Motor (10-second hold) - 0(No drift) 6a. Left Leg: Motor (5-second hold - always test supine) - 1(Drift) 6b. Right Leg: Motor (5-second hold - always test supine) - 0(No drift) 7. Limb Ataxia (finger/nose \T\ heel/zelaya - test with eyes open) - 1(Present in one limb) 8. Sensory Loss (pinprick arms/legs/face) - 0(Normal) 9. Best Language: Aphasia (description/naming/reading) - 0(No aphasia) 10. Dysarthria (speech clarity - read or repeat words) - 0(Normal) 11. Extinction and Inattention (visual/tactile/auditory/spatial/personal) - 0(No abnormality) Initials: mg2 Signatures: Dispatcher [employer] EDFrancisco Peguero MD MD cha Gardose, Michele, RN RN mg2 Corrections: (The following items were deleted from the chart) 02:09 00:57 02/07/2018 00:57 Transfer ordered to [facility]. 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 Reason for transfer: Higher level of care. Accepting physician is to [facility]. Condition is Fair. Problem is new. Symptoms have improved. [facility]
[2018-02-07] MEDS ORDERED: ACETAMINOPHEN 325 MG TABLET ONE (01:41)
[2018-02-07 02:13] VITALS: TEMP 98.8
[2018-02-07 02:16] VITALS: BP 119/74; O2SAT 96
--- NOTE | 2018-02-07 10:54 | EKG ---
Test Date: 2018-02-06 Test Time: 23:21:52 Vision Teacher: MG MEASUREMENT RESULTS: Intervals: Rate: 79 [place]: 152 QRSD: 72 QT: 416 QTc: 477 [place]: P: 34 [place]: 152 QRS: -13 T: 12 INTERPRETIVE STATEMENTS: Sinus rhythm with premature atrial complexes Abnormal ECG Compared to ECG 01/30/2018 09:56:32 ST (T wave) deviation no longer present Electronically Signed On 02-07-18 10:54:01 CDT by Umesh Ulloa
--- NOTE | 2018-02-07 13:06 | RAD REPORT ---
EXAM DESCRIPTION: RAD - Chest Single View - 02/06/2018 10:49 pm CLINICAL HISTORY: COUGH Chest pain. COMPARISON: Chest Pa And Lat (2 Views) dated 01/31/2018; Chest Single View dated 01/28/2018; Chest Sing le View dated 10/07/2017; Chest Pa And Lat (2 Views) dated 10/08/2016 FINDINGS: Portable technique limits examination quality. The lungs are grossly clear. The heart is upper limit of normal in size. No displaced fractures.Moder ate thoracic dextroscoliosis. Proximal left humeral prosthesis. IMPRESSION: No acute intrathoracic process suspected.
--- NOTE | 2018-02-07 13:19 | RAD REPORT ---
EXAM DESCRIPTION: CT - Head Brain Wo Cont - 02/07/2018 12:33 am CLINICAL HISTORY: WEAKNESS TIA/CVA. Headache. COMPARISON: Head C Spine Mpr Wo Con dated 07/11/2017 TECHNIQUE: All CT scans are performed using dose optimization technique as appropriate and may inclu de automated exposure control or mA/KV adjustment according to patient size. FINDINGS: No intracranial hemorrhage, hydrocephalus or extra-axial fluid collection.Moderate general ized brain atrophy is present with moderate periventricular and deep white matter chronic microvascul ar ischemic changes.No areas of brain edema or evidence of midline shift. The paranasal sinuses and mastoids are clear. The calvarium is intact. IMPRESSION: No acute intracranial abnormality.
--- NOTE | 2018-02-07 13:23 | RAD REPORT ---
EXAM DESCRIPTION: CT - Stone Protocol - 02/07/2018 12:34 am CLINICAL HISTORY: Flank pain. FLANK PAIN COMPARISON: Chest Pa And Lat (2 Views) dated 01/31/2018 TECHNIQUE: Axial images were obtained without oral or IV contrast. Lack of contrast limits solid org an and vascular assessment. The [id number] spans the entirety of the system partially obscuring uppermost abdomen and lung bases. Coronal reformatted images were obtained and reviewed. All CT scans are performed using dose optimization technique as appropriate and may include automated exposure control or mA/KV adjustment according to patient size. FINDINGS: The lower lung palomino are clear. Several benign hepatic cysts are suspected, although assessment is limited on a noncontrast study. Ch olecystectomy clips are noted.Splenic size is within normal limits. The pancreas and adrenal glands a re normal. No pathologic lymphadenopathy in the abdomen or pelvis. Tiny punctate caliceal stone suspected bilaterally without hydronephrosis. No bowel obstruction, free air, free fluid or abscess. Normal appendix noted.Colonic diverticulosis i s seen without diverticulitis. Moderate aortic atherosclerosis. Compression deformities affect T10 and T11, moderately severe, age indeterminant. Posterior osteophyt e/ disc complexes are noted at L5-S1 and T10-11 resulting in moderate central canal narrowing. Promin ent degenerative thoracolumbar scoliosis. IMPRESSION: Punctate bilateral nephrolithiasis without hydronephrosis. Moderate compression deformities involving the lower thoracic spine, age indeterminate. The patient h as significant back pain, MR imaging followup would be of value.
== END 2018-02-07 02:09 | disposition short-term general hospital (02) ==
LOC: ER 21:03
DX: I63.9 Cerebral infarction, unspecified (principal); I10 Essential (primary) hypertension; R29.702 NIHSS score 2; I48.91 Unspecified atrial fibrillation; R50.9 Fever, unspecified; N30.90 Cystitis, unspecified without hematuria; I48.92 Unspecified atrial flutter; I25.2 Old myocardial infarction; Z79.82 Long term (current) use of aspirin; Z88.0 Allergy status to penicillin; Z88.5 Allergy status to narcotic agent; Z88.8 Allergy status to other drugs, medicaments and biological substances
CPT/HCPCS: 36415; 70450; 71045; 74176; 76377; 80048; 80076; 81003; 82550; 82553; 83735; 83880; 84484; 85025; 85610; 85730; 86140; 87040 ×2; 87086; 87088; 93005; 96365; 96368; 99285; J0696 ×2

== ENCOUNTER 2018-10-25 07:07 | Day surgery (SDC) | payer MEDICARE, OTHER ==
--- NOTE | 2018-10-22 12:45 | RAD REPORT ---
EXAM DESCRIPTION: Daisha Bertrand (2 Views)10/22/2018 12:37 pm CLINICAL HISTORY: Preop for heart catheterization COMPARISON: January 2018 FINDINGS: The lungs appear clear of acute infiltrate. The heart is mildly enlarged Old compression fractures are present within the thoracic spine IMPRESSION: No acute abnormalities displayed
[2018-10-22 13:11] LABS: Absolute Lymphocytes (CBC) 1.8 K/uL (0.7-4.9); Absolute Monocytes 0.5 K/uL (0.1-1.3); Absolute Neutrophil 3.3 K/uL (1.8-8.0); Basophils % 1.3 % (0-1.3); Eosinophils % 4.5 % (0-4.4); Hematocrit 30.2 % (36.0-45.0); Lymphocytes % 29.6 % (15.3-44.8); MPV 10.5 fL (7.6-11.3)
[2018-10-22 13:15] LABS: Protime INR 1.38
[2018-10-22 13:28] LABS: Potassium 4.1 mmol/L (3.5-5.1)
[2018-10-22 16:27] LABS: Anisocytosis 1+; Blood Morphology Comment NOTED (NOT SEEN); Hypochromasia 1+; Platelet Estimate ADEQ; Urine White Blood Cell Casts OK
[2018-10-22 16:28] LABS: Ovalocytes 1+
[~2018-10-25 07:07] MED LIST: HEPA 1000U/500MLS 2,000 UNIT/1,000 ML BAG IV ONE; LIDOCAINE 1% MPF 30 ML VIAL ONE
--- OUTSIDE RECORDS SUMMARY | 2018-10-25 07:21 | XMS REPORT | Clinical Summary ---
:1945 Author Organization [facility] Address [address] [place] [address] Care Team Providers Name Role Phone Kasey Pinto DO Primary Care Provider Sharpless Unavailable Allergies Active Allergy Reactions Severity Noted Date Comments Morphine 10/20/2017 Morphine Other (See High 02/07/2018 Pt. States has severe Comments) hallucinations when given medication Penicillins Hives Medium 02/07/2018 Pt. States breaks out in hives; cannot recall the severity since first reaction was during childhood Promethazine-Dm 10/20/2017 Promethazine-Phenyleph Other (See High 02/07/2018 Pt has hallucinations rine Comments) when given medications Medications Medication Sig Dispensed Refills Start Date End Date Status atorvastatin Take 80 mg by 0 Active (LIPITOR) 40 MG mouth daily . tablet enalapril (VASOTEC) Take 5 mg by 0 Active 5 MG tablet mouth daily. furosemide (LASIX) Take 40 mg by 0 Active 40 MG tablet mouth daily. dronedarone Take 400 mg by 0 Active (MULTAQ) 400 mg mouth 2 (two) tablet times daily with breakfast and dinner. aspirin 81 MG EC Take 81 mg by 0 Active tablet mouth daily. rivaroxaban Take 1 tablet 0 10/30/2017 Active (XARELTO) 20 mg Tab (20 mg total) tablet by mouth daily with dinner Hold since 10/18/2017 . atorvastatin Take 40 mg by 0 Active (LIPITOR) 40 MG mouth nightly . tablet furosemide (LASIX) Take 20 mg by 0 Active 20 MG tablet mouth 2 (two) times daily. potassium chloride Take 20 mEq by 0 Active (KLOR-CON) 20 mEq mouth daily. packet aspirin 81 MG EC Take 81 mg by 0 Active tablet mouth daily. folic acid Take 1 tablet 90 tablet 0 02/14/2018 Active (FOLVITE) 1 MG (1 mg total) by 9 tablet mouth daily. apixaban (ELIQUIS) Take 1 tablet 60 tablet 3 02/13/2018 Active 5 mg Tab tablet (5 mg total) by mouth 2 (two) times daily. amiodarone Take 1 tablet 60 tablet 1 02/13/2018 Active (PACERONE) 200 MG (200 mg total) 9 tablet by mouth 2 (two) times daily. acetaminophen Take 2 tablets 0 10/22/2017 (TYLENOL) 325 MG (650 mg total) 8 tablet by mouth every 6 (six) hours as needed for Pain for up to 10 days. traMADol (ULTRAM) Take 1 tablet 30 tablet 0 10/23/2017 50 mg tablet (50 mg total) 8 by mouth every 6 (six) hours as needed for up to 10 days. Max Daily Amount: 200 mg rivaroxaban Take 20 mg by 0 Discontinued (XARELTO) 20 mg Tab mouth daily. 8 tablet enalapril (VASOTEC) Take 5 mg by 0 Discontinued 5 MG tablet mouth daily. 8 dronedarone Take 400 mg by 0 Discontinued (MULTAQ) 400 mg mouth 2 (two) 8 tablet times daily with breakfast and dinner. amiodarone Take 1 tablet 60 tablet 1 02/13/2018 Discontinued (PACERONE) 400 MG (400 mg total) 8 tablet by mouth 2 (two) times daily. 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 Carotid artery occlusion Coronary artery disease TIA (transient ischemic attack) Atrial fibrillation Hyperlipidemia Hypertension Coronary artery disease CHF (congestive heart failure) Atrial fibrillation Encounters Date Type Specialty Care Team Description 02/13/2018 Anesthesia Event Gastroenterology Dm Trimble MD 02/13/2018 Surgery Gastroenterology Ted Uribe MD 02/11/2018 Anesthesia Event Gastroenterology Nicci Pablo MD 02/07/2018 Hospital Cardiology Brann, Transient cerebral ischemia, unspecified type; - Encounter Christopher Chronic atrial fibrillation (HCC); 02/13/2018 MD Umesh Essential hypertension; Magdalena Byers MD Ataxia; Yovani Norris Stenosis of right carotid artery; MD Jose Acute embolic stroke (HCC); Paroxysmal atrial fibrillation (HCC) 02/07/2018 Orders Only General Internal Medicine after 10/24/2017 Family History Medical History Relation Name Comments Cancer Father Cancer Mother Relation Name Status Comments Father Mother Social History Tobacco Use Types Packs/Day Years Used Date Former Smoker 1 Quit: 02/08/2012 Smokeless Tobacco: Never Used Alcohol Use Drinks/Week oz/Week Comments No Sex Assigned at Date Recorded Not on file Job Start Date Occupation Industry Not on file Not on file Not on file Travel History Travel Start Travel End No recent travel history available. Last Filed Vital Signs Vital Sign Reading Time Taken Blood Pressure 160/77 02/13/2018 1:48 PM CDT Pulse 65 02/13/2018 1:48 PM CDT Temperature 35.9 C (96.7 F) 02/13/2018 1:48 PM CDT Respiratory Rate 19 02/13/2018 12:28 PM CDT Oxygen Saturation 99% 02/13/2018 1:48 PM CDT Inhaled Oxygen Concentration - - Weight 77.1 kg (170 lb) 02/12/2018 7:45 AM CDT Height 157.5 cm (5' 2") 02/12/2018 7:45 AM CDT Body Mass Index 31.09 02/12/2018 7:45 AM CDT Plan of Treatment Health Maintenance Due Date Last Done Comments INFLUENZA VACCINE 05/03/2018 Implants Implanted Type Area Judge'S Clerk Device Shelf Model / Identifier Expiration Serial / Lot Date Grherosn Hemshld Dbl Ovidio 0.3x3.0in [id number] - [id number] Graft/Pa Right: GETINGE 03/02/2022 [id number] / Implanted: Qty: 1 on 10/21/2017 by Max eSo MD [facility] [place] IND:MAERICKT: CV [id number] / [id number] Procedures Procedure Name Priority Date/Time Associated Diagnosis Comments REPORT OF PROCEDURE - 07/12/2018 1:08 ENDOSCOPY URL PM COLOR MAKER REPORT OF PROCEDURE - 02/16/2018 8:40 ENDOSCOPY SCAN AM CDT RHYTHM STRIP - SCAN 02/16/2018 8:40 AM CDT TRANSFUSION SERVICE 02/15/2018 11:40 REPORT - SCAN AM CDT RHYTHM STRIP - SCAN 02/15/2018 11:40 AM CDT REPORT OF PROCEDURE - 02/15/2018 11:40 ENDOSCOPY SCAN AM CDT COLONOSCOPY 02/13/2018 11:09 Gastrointestinal AM CDT hemorrhage, unspecified gastrointestinal hemorrhage type CBC W/PLT COUNT & AUTO Routine 02/13/2018 6:33 Results for DIFFERENTIAL AM CDT this procedure are in the results section. MAGNESIUM Routine 02/13/2018 6:33 Results for AM CDT this procedure are in the results section. BASIC METABOLIC PANEL Routine 02/13/2018 6:33 Results for (7) AM CDT this procedure are in the results section. CBC W/PLT COUNT & AUTO Routine 02/13/2018 6:33 Results for DIFFERENTIAL AM CDT this procedure are in the results section. ECHOCARDIOGRAM REPORT 02/12/2018 8:20 - SCAN AM CDT CBC W/PLT COUNT & AUTO Routine 02/12/2018 5:49 Results for DIFFERENTIAL AM CDT this procedure are in the results section. IRON, TIBC, % SAT. Routine 02/12/2018 5:49 Results for (WITHOUT FERRITIN) AM CDT this procedure are in the results section. FERRITIN Routine 02/12/2018 5:49 Results for AM CDT this procedure are in the results section. MAGNESIUM Routine 02/12/2018 5:49 Results for AM CDT this procedure are in the results section. BASIC METABOLIC PANEL Routine 02/12/2018 5:49 Results for (7) AM CDT this procedure are in the results section. CBC W/PLT COUNT & AUTO Routine 02/12/2018 5:49 Results for DIFFERENTIAL AM CDT this procedure are in the results section. TRANSESOPHAGEAL ECHO Routine 02/11/2018 2:08 Results for PM CDT this procedure are in the results section. CBC W/PLT COUNT & AUTO Routine 02/11/2018 5:03 Results for DIFFERENTIAL AM CDT this procedure are in the results section. MAGNESIUM Routine 02/11/2018 5:03 Results for AM CDT this procedure are in the results section. BASIC METABOLIC PANEL Routine 02/11/2018 5:03 Results for (7) AM CDT this procedure are in the results section. CBC W/PLT COUNT & AUTO Routine 02/11/2018 5:03 Results for DIFFERENTIAL AM CDT this procedure are in the results section. CONT WAVE PULSED Routine 02/10/2018 5:53 DOPPLER PM CDT COLOR-FLOW MAPPING Routine 02/10/2018 5:53 PM CDT MR SPINE LUMBAR Routine 02/10/2018 1:56 Results for WITHOUT IV CONTRAST PM CDT this procedure are in the results section. MR THORACIC SPINE Routine 02/10/2018 1:56 Results for WITHOUT CONTRAST PM CDT this procedure are in the results section. VENOUS DOPPLER LEGS Routine 02/10/2018 10:00 Results for BILATERAL AM CDT this procedure are in the results section. CBC W/PLT COUNT & AUTO Routine 02/10/2018 3:53 Results for DIFFERENTIAL AM CDT this procedure are in the results section. MAGNESIUM Routine 02/10/2018 3:53 Results for AM CDT this procedure are in the results section. BASIC METABOLIC PANEL Routine 02/10/2018 3:53 Results for (7) AM CDT this procedure are in the results section. CBC W/PLT COUNT & AUTO Routine 02/10/2018 3:53 Results for DIFFERENTIAL AM CDT this procedure are in the results section. URINALYSIS W/ REFLEX FELA 02/09/2018 12:14 Results for URINE CULTURE PM CDT this procedure are in the results section. 2D ECHO W/ DOPPLER Routine 02/09/2018 9:29 Results for (CW/PW/COLOR) AM CDT this procedure are in the results section. CBC W/PLT COUNT & AUTO Routine 02/09/2018 4:45 Results for DIFFERENTIAL AM CDT this procedure are in the results section. MAGNESIUM Routine 02/09/2018 4:45 Results for AM CDT this procedure are in the results section. BASIC METABOLIC PANEL Routine 02/09/2018 4:45 Results for (7) AM CDT this procedure are in the results section. CBC W/PLT COUNT & AUTO Routine 02/09/2018 4:45 Results for DIFFERENTIAL AM CDT this procedure are in the results section. CBC W/PLT COUNT & AUTO Routine 02/08/2018 5:10 Results for DIFFERENTIAL AM CDT this procedure are in the results section. VITAMIN B12 AND FOLATE Routine 02/08/2018 5:10 Results for AM CDT this procedure are in the results section. C-REACTIVE PROTEIN Routine 02/08/2018 5:10 Results for AM CDT this procedure are in the results section. TSH/FREE T4 IF Routine 02/08/2018 5:10 Results for INDICATED AM CDT this procedure are in the results section. LIPID PANEL Routine 02/08/2018 5:10 Results for AM CDT this procedure are in the results section. PHOSPHORUS Routine 02/08/2018 5:10 Results for AM CDT this procedure are in the results section. MAGNESIUM Routine 02/08/2018 5:10 Results for AM CDT this procedure are in the results section. BASIC METABOLIC PANEL Routine 02/08/2018 5:10 Results for (7) AM CDT this procedure are in the results section. CBC W/PLT COUNT & AUTO Routine 02/08/2018 5:10 Results for DIFFERENTIAL AM CDT this procedure are in the results section. URINALYSIS W/ Routine 02/07/2018 8:32 Results for MICROSCOPIC PM CDT this procedure are in the results section. MR BRAIN WITHOUT IV Routine 02/07/2018 6:38 Results for CONTRAST PM CDT this procedure are in the results section. MR MRA NECK WITHOUT IV Routine 02/07/2018 6:38 Results for CONTRAST PM CDT this procedure are in the results section. MR MRA HEAD WITHOUT Routine 02/07/2018 6:38 Results for CONTRAST PM CDT this procedure are in the results section. ECG 12-LEAD Routine 02/07/2018 10:24 AM CDT Procedure Note - Interface, External Ris In - 02/07/2018 10:44 AM CDT Ventricular Rate 76 BPM Atrial Rate 76 BPM P-R Interval 160 ms QRS Duration 72 ms Q-T Interval 226 ms QTC Calculation(Bazett) 254 ms P Esbon 43 degrees R Esbon -11 degrees T Esbon -85 degrees Sinus rhythm with Premature atrial complexes Cannot rule out Inferior infarct , age undetermined Abnormal ECG No previous ECGs available ECG 12-LEAD Routine 02/07/2018 10:24 AM CDT CBC W/PLT COUNT & AUTO Routine 02/07/2018 8:24 AM CDT Results for this DIFFERENTIAL procedure are in the results section. HEMOGLOBIN A1C Routine 02/07/2018 8:24 AM CDT LIPID PANEL Routine 02/07/2018 8:24 AM CDT TSH/FREE T4 IF INDICATED Routine 02/07/2018 8:24 AM CDT BASIC METABOLIC PANEL (7) Routine 02/07/2018 8:24 AM CDT CBC W/PLT COUNT & AUTO Routine 02/07/2018 8:24 AM CDT Results for this DIFFERENTIAL procedure are in the results section. after 10/24/2017 Results REPORT OF PROCEDURE - ENDOSCOPY URL (07/12/2018 1:08 PM COLOR MAKER) Narrative Performed At EKG-SCANNED (02/16/2018 8:40 AM CDT)Only the most recent of2 resultswithin the time period is included. Narrative Performed At RHYTHM STRIP - SCAN (02/16/2018 8:40 AM CDT)Only the most recent of2 resultswithin the time period is included. Narrative Performed At TRANSFUSION SERVICE REPORT - SCAN (02/15/2018 11:40 AM CDT) Narrative Performed At CBC with platelet count + automated diff (02/13/2018 6:33 AM CDT)Only the most recent of7 resultswithin the time period is included. WBC 5.3 3.5 - 10.5 K/L [facility] RBC 3.76 (L) 3.93 - 5.22 M/L [facility] Hemoglobin 10.1 (L) 11.2 - 15.7 GM/DL [facility] Hematocrit 33.1 (L) 34.1 - 44.9 % [facility] MCV 88.0 79.4 - 94.8 fL [facility] MCH 26.9 25.6 - 32.2 pg [facility] MCHC 30.5 (L) 32.2 - 35.5 GM/DL [facility] RDW 14.4 11.7 - 14.4 % [facility] Platelets 218 150 - 450 K/CU MM [facility] MPV 12.7 (H) 9.4 - 12.3 fL [facility] nRBC 0 0 - 0 /100 WBC [facility] % Neutros 68 % [facility] % Lymphs 19 % [facility] % Monos 9 % [facility] % Eos 3 % [facility] % Baso 1 % [facility] # Neutros 3.59 1.56 - 6.13 K/L [facility] # Lymphs 0.97 (L) 1.18 - 3.74 K/L [facility] # Monos 0.46 (H) 0.24 - 0.36 K/L [facility] # Eos 0.13 0.04 - 0.36 K/L [facility] # Baso 0.03 0.01 - 0.08 K/L [facility] Immature Granulocytes-Relative 1 0 - 1 % [facility] Specimen Blood - Arm, Left Performing Organization Address City/[facility] Phone Number [address] [address] CENTER Magnesium (02/13/2018 6:33 AM CDT)Only the most recent of6 resultswithin the time period is included. Magnesium 1.9 1.6 - 2.6 mg/dL [facility] Specimen Blood - Arm, Left Performing Organization Address City/[facility]/Zipcode Phone Number [address] [address] CENTER Basic Metabolic Panel (02/13/2018 6:33 AM CDT)Only the most recent of7 resultswithin the time period is included. Sodium 137 136 - 145 meq/L [facility] Potassium 3.5 3.5 - 5.1 meq/L [facility] Chloride 100 98 - 107 meq/L [facility] CO2 24 22 - 29 meq/L [facility] BUN 13 7 - 21 mg/dL [facility] Creatinine 0.80 0.57 - 1.25 mg/dL [facility] Glucose 71 70 - 105 mg/dL [facility] Calcium 9.5 8.4 - 10.2 mg/dL [facility] EGFR 71Comment: ESTIMATED GFR IS mL/min/1.73 sq m [facility] NOT ACCURATE CREATININE [facility] CENTER CLEARANCE IN PREDICTING GLOMERULAR FILTRATION RATE. ESTIMATED GFR IS NOT APPLICABLE FOR DIALYSIS PATIENTS. Specimen Blood - Arm, Left Performing Organization Address City/[facility] Phone Number [address] [address] CENTER ECHOCARDIOGRAM REPORT - SCAN (02/12/2018 8:20 AM CDT) Narrative Performed At Iron, TIBC, % sat. (without ferritin) (02/12/2018 5:49 AM CDT) Iron 41 40 - 160 ug/dL [facility] TIBC 289 250 - 450 ug/dL [facility] Iron % Saturation 14 (L) 20 - 55 % [facility] Specimen Blood - Arm, Right Performing Organization Address City/[facility]/Zipcode Phone Number [address] [address] CENTER Ferritin (02/12/2018 5:49 AM CDT) Ferritin 45 5 - 275 ng/mL [facility] Specimen Blood - Arm, Right Performing Organization Address City/[facility]/Zipcode Phone Number [address] [place] [address] CENTER Transesophageal echo (02/11/2018 2:08 PM CDT) Ejection Fraction [facility] Narrative Performed At Transesophageal Echocardiography Report (HENNA) [facility] Demographics Patient Name TC HARDEN Date of Study 02/11/2018 KATIE [id number] GenderFemale Visit Number [id number] RaceCaucasian [id number] m Number [id number] Number Date of Birth1945 Referring Physician Trish Gavin MD Age72 year(s) Finishing Range Feeder Jen Turpin AMADO Ceja MD Physician Fellow JAY Serrano Procedure Type of Study HENNA procedure:TRANSESOPHAGEAL ECHO (Routine) Indications:Suspected cardiac source of emboli. Clinical History A-fib, CHF, CAD, HTN, Stroke, MVR s/p Cardioversion s/p PCI/stent (2015) Height: 62 inches Weight: 77.11 kg (170 lbs) BSA: 1.78 m^2 BMI: 31.09 kg/m^2 HR: 79 bpm BP: 124/65 mmHg HENNA Performed By: the attending and the fellow Summary 1. LA appendage morphology is complex with superior and medial extension. No LA appendage Thrombus visualized. LA appendage velocities are normal range (>40 cm/s). 2. Normal left ventricle cavity size. Mild concentric LV hypertrophy. Global LV systolic function normal. Normal right ventricle structure and function. 3. Peipzhqr-bi-pfinxc mitral annular calcification extending into both leaflets, with heavy involvement of the posterior leaflet. Mild mitral regurgitation. MV gradients are mildly increased in part due to mitral annular calcification. 4. Mild tricuspid regurgitation. 5. IV saline contrast injection was negative for a PFO (patent foramen ovale) at rest . 6. Grade 3 plaque (atheroma < 5mm) in the descending thoracic aorta . Previous Study No prior studies available for comparison. Signature Findings Technical Quality: Technically adequate exam. Rhythm/BP 3D imaging ([facility] [id number]) rendering with interpretation was performed. LeftNormal left ventricle cavity size. Ventricle Mild concentric LV hypertrophy. Global LV systolic function normal . Left Atrium LA is enlarged but severity assessment is unreliable due to known HENNA sector size limitation. LA appendage morphology is complex with superior and medial extension. No LA appendage Thrombus visualized. LA appendage velocities are normal range (>40 cm/s) . Right Normal right ventricle structure and function. Ventricle Right AtriumRA cavity size is enlarged but severity assessment is unreliable . Atrial Septum IV saline contrast injection was negative for a PFO (patent foramen ovale) at rest . Aortic ValveMild AoV cusp thickening. Mild AoV cusp calcification. Mild aortic regurgitation. Mitral EvbujUoawrqau-nm-bumukq mitral annular calcification extending into both leaflets, with heavy involvement of the posterior leaflet. Mild mitral regurgitation. MV gradients are mildly increased in part due to mitral annular calcification . 3D imaging and reconstruction of the mitral valve performed. Tricuspid Mild TV leaflet thickening. Valve Mild tricuspid regurgitation. Unable to estimate peak systolic PA pressure; inadequate TR velocity signal. PulmonicPV is not well visualized; function appears normal by Valve Doppler visualized. Aorta Aortic root size (SInus of Valsalva diameter) is normal . Grade 3 plaque (atheroma < 5mm) in the descending thoracic aorta . Pericardium No significant pericardial effusion is visualized. Procedure Note Interface, External Ris In - 02/11/2018 10:39 PM CDT Transesophageal Echocardiography Report (HENNA) Demographics Patient Name TC HARDEN Date of Study 02/11/2018 KATIE Gender Female Visit Number [id number] Race Room Number 1434 Number Date of 1945 Referring Physician Trish Gavin MD Age 72 year(s) Finishing Range Feeder Jen Turpin, RDCS Interpreting Byron Ceja MD Physician Fellow JAY Serrano Procedure Type of Study HENNA procedure:TRANSESOPHAGEAL ECHO (Routine) Indications:Suspected cardiac source of emboli. Clinical History A-fib, CHF, CAD, HTN, Stroke, MVR s/p Cardioversion s/p PCI/stent (2016) Height: 62 inches Weight: 77.11 kg (170 lbs) BSA: 1.78 m^2 BMI: 31.09 kg/m^2 HR: 79 bpm BP: 124/65 mmHg HENNA Performed By: the attending and the fellow Summary 1. LA appendage morphology is complex with superior and medial extension. No LA appendage Thrombus visualized. LA appendage velocities are normal range (>40 cm/s). 2. Normal left ventricle cavity size. Mild concentric LV hypertrophy. Global LV systolic function normal. Normal right ventricle structure and function. 3. Xoukuuck-zd-mkfhvp mitral annular calcification extending into both leaflets, with heavy involvement of the posterior leaflet. Mild mitral regurgitation. MV gradients are mildly increased in part due to mitral annular calcification. 4. Mild tricuspid regurgitation. 5. IV saline contrast injection was negative for a PFO (patent foramen ovale) at rest . 6. Grade 3 plaque (atheroma < 5mm) in the descending thoracic aorta . Previous Study No prior studies available for comparison. Signature Findings Technical Quality: Technically adequate exam. Rhythm/BP 3D imaging ([facility] [id number]) rendering with interpretation was performed. Left Normal left ventricle cavity size. Ventricle Mild concentric LV hypertrophy. Global LV systolic function normal . Left Atrium LA is enlarged but severity assessment is unreliable due to known HENNA sector size limitation. LA appendage morphology is complex with superior and medial extension. No LA appendage Thrombus visualized. LA appendage velocities are normal range (>40 cm/s) . Right Normal right ventricle structure and function. Ventricle Right Atrium RA cavity size is enlarged but severity assessment is unreliable . Atrial Septum IV saline contrast injection was negative for a PFO (patent foramen ovale) at rest . Aortic Valve Mild AoV cusp thickening. Mild AoV cusp calcification. Mild aortic regurgitation. Mitral Valve Dmeweado-vv-wigheh mitral annular calcification extending into both leaflets, with heavy involvement of the posterior leaflet. Mild mitral regurgitation. MV gradients are mildly increased in part due to mitral annular calcification . 3D imaging and reconstruction of the mitral valve performed. Tricuspid Mild TV leaflet thickening. Valve Mild tricuspid regurgitation. Unable to estimate peak systolic PA pressure; inadequate TR velocity signal. Pulmonic PV is not well visualized; function appears normal by Valve Doppler visualized. Aorta Aortic root size (SInus of Valsalva diameter) is normal . Grade 3 plaque (atheroma < 5mm) in the descending thoracic aorta . Pericardium No significant pericardial effusion is visualized. Performing Organization Address City/State/[facility] Phone Number [facility] MR spine lumbar without IV contrast (02/10/2018 1:56 PM CDT) Narrative Performed At FINAL REPORT [employer] [facility] MRI of the lumbar spine Comparison:None Reason for exam: Low back pain, rapidly progressive neuro deficit Discussion: Sagittal and axial multisequence MR imaging of the lumbar spine was provided L5/S1:The disc is degenerated and narrow with broad disc protrusion centrally into the left. I could not exclude subarticular compromise of the left S1 nerve root. There is no significant central canal stenosis. Right foramen is patent. There is moderate to severe left chronic foraminal stenosis. Correlate with left L5 radiculopathy. L4/5:Mild facet arthrosis but no canal or foraminal compromise. L3/4:Mild facet arthrosis but no canal or foraminal compromise. L2/3:Negative L1/2:Negative T12/L1:Negative The conus tip at the L1 level. A 3 mm cavitation is seen in the distal cord at the T12 level, discussed on concurrent thoracic spine MRI. The visualized paraspinal and retroperitoneal structures are unremarkable. Marrow is unremarkable. Impressions: Multilevel degenerative changes. There is no significant central canal stenosis at any level. Left-sided foraminal and subarticular compromise should be correlated with corresponding specific radiculopathy as detailed above. Signed: Catrachita Calle MD Report Verified Date/Time:02/10/2018 14:56:55 Reading Location: [facility] C013 Consult Reading Room Procedure Note Interface, External Ris In - 02/10/2018 2:59 PM CDT FINAL REPORT MRI of the lumbar spine Comparison: None Reason for exam: Low back pain, rapidly progressive neuro deficit Discussion: Sagittal and axial multisequence MR imaging of the lumbar spine was provided L5/S1: The disc is degenerated and narrow with broad disc protrusion centrally into the left. I could not exclude subarticular compromise of the left S1 nerve root. There is no significant central canal stenosis. Right foramen is patent. There is moderate to severe left chronic foraminal stenosis. Correlate with left L5 radiculopathy. L4/5: Mild facet arthrosis but no canal or foraminal compromise. L3/4: Mild facet arthrosis but no canal or foraminal compromise. L2/3: Negative L1/2: Negative T12/L1: Negative The conus tip at the L1 level. A 3 mm cavitation is seen in the distal cord at the T12 level, discussed on concurrent thoracic spine MRI. The visualized paraspinal and retroperitoneal structures are unremarkable. Marrow is unremarkable. Impressions: Multilevel degenerative changes. There is no significant central canal stenosis at any level. Left-sided foraminal and subarticular compromise should be correlated with corresponding specific radiculopathy as detailed above. Signed: Catrachita Calle MD Report Verified Date/Time: 02/10/2018 14:56:55 Reading Location: [facility] [id number] Consult Reading Room Performing Organization Address City/State/Zipcode Phone Number [employer] MR thoracic spine without IV contrast (02/10/2018 1:56 PM CDT) Narrative Performed At FINAL REPORT [facility] MRI of the thoracic spine Comparison:None Reason for exam: Thoracic and lumbar spine trauma, low back pain Discussion: Sagittal and axial multisequence MR imaging of the thoracic spine was provided Chronic compression deformities are present, mild to moderate in degree ventrally at T7, mild in degree upper endplate T10, moderate in degree ventrally T11. None of the lesions have bone marrow edema to indicate recent injury. There is mild retroportion involving the T11 upper endplate but there is no significant central canal stenosis at any level. 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 Cord has otherwise normal size and signal intensity. Paraspinal structures are unremarkable. Impressions: 1. Multiple levels of chronic compression deformity but no evidence of acute spine injury. 2. Single chronic tiny cavitation of the distal cord of doubtful clinical relevance. Neurological correlation for myelopathy is warranted. Consider six month pre and postcontrast thoracic spine MRI follow-up. Signed: Catrachita Calle MD Report Verified Date/Time:02/10/2018 14:43:52 Reading Location: [address] Consult Reading Room Procedure Note Interface, External Ris In - 02/10/2018 2:46 PM CDT FINAL REPORT MRI of the thoracic spine Comparison: None Reason for exam: Thoracic and lumbar spine trauma, low back pain Discussion: Sagittal and axial multisequence MR imaging of the thoracic spine was provided Chronic compression deformities are present, mild to moderate in degree ventrally at T7, mild in degree upper endplate T10, moderate in degree ventrally T11. None of the lesions have bone marrow edema to indicate recent injury. There is mild retroportion involving the T11 upper endplate but there is no significant central canal stenosis at any level. 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 Cord has otherwise normal size and signal intensity. Paraspinal structures are unremarkable. Impressions: 1. Multiple levels of chronic compression deformity but no evidence of acute spine injury. 2. Single chronic tiny cavitation of the distal cord of doubtful clinical relevance. Neurological correlation for myelopathy is warranted. Consider six month pre and postcontrast thoracic spine MRI follow-up. Signed: Catrachita Calle MD Report Verified Date/Time: 02/10/2018 14:43:52 Reading Location: [place] [id number] Consult Reading Room Performing Organization Address City/State/Zipcode Phone Number [facility] Venous doppler legs bilateral (02/10/2018 10:00 AM CDT) Ejection Fraction [facility] ECHO HEARTLAB [facility] CPACS Impressions Performed At Right Impression [facility] ECHO HEART[facility] 1. There is no deep venous obstruction in the common femoral, profunda femoral, femoral, popliteal, posterior tibial or peroneal veins. 2. There is no superficial venous obstruction in the great saphenous vein. Left Impression 1. There is no deep venous obstruction in the common femoral, profunda femoral, femoral, popliteal, posterior tibial or peroneal veins. 2. There is no superficial venous obstruction in the great saphenous vein. Conclusions Summary Venous duplex imaging and compression of the bilateral lower extremities were performed. The veins were adequately visualized. The bilateral venous systems were patent and compressible with no evidence of thrombus. The venous Doppler waveforms were phasic with respiration. Signature Velocities are measured in cm/s ; Diameters are measured in cm Narrative Performed At PV LAB - Lower Extremities DVT Study [facility] ECHO HEART[facility] CPA Demographics Patient Name TC HARDEN Date of Study02/10/2018 KATIE [id number] Visit Number [id number] Gender Female Accession Number [id number] Date of Birth1945 Slick Cervantes [id number] Physician SonographRoberto Woods Interpreting Ricki Bradford T Physician, GEORGE Procedure Type of Study: Veins: Lower Extremities DVT Study, VENOUS DOPPLER LEG, BILATERAL. Indications for Study:Tenderness. Patient Status:Routine. Study Location:Vascular Lab. Technical Quality:Adequate visualization. Risk Factors History of Disease + +----+ + !Diagnosis !Date!Comments ! + +----+ + !History/Risk!!HTN, CAD, AFIB, CAROTID STENOSIS W/ BILAT ! !Factors:!!ENDARTS ! + +----+ + Procedure Note Interface, External Ris In - 02/10/2018 11:51 AM CDT [facility] - Lower Extremities DVT Study Demographics Patient Name TC HARDEN Date of Study 02/10/2018 KATIE Age 72 Visit Number [id number] Gender Female Accession Number [id number] Date of 1945 Referring Yovani Norris Room Number [id number] Physician Finishing Range Feeder Malia Woods Interpreting Ricki rBadford Constantino Physician , GEORGE Procedure Type of Study: Veins: Lower Extremities DVT Study, VENOUS DOPPLER LEG, BILATERAL. Indications for Study:Tenderness. Patient Status:Routine. Study Location:Vascular Lab. Technical Quality:Adequate visualization. Risk Factors History of Disease + +----+ + !Diagnosis !Date!Comments ! + +----+ + !History/Risk ! !HTN, CAD, AFIB, CAROTID STENOSIS W/ BILAT ! !Factors: ! !ENDARTS ! + +----+ + Impressions Right Impression 1. There is no deep venous obstruction in the common femoral, profunda femoral, femoral, popliteal, posterior tibial or peroneal veins. 2. There is no superficial venous obstruction in the great saphenous vein. Left Impression 1. There is no deep venous obstruction in the common femoral, profunda femoral, femoral, popliteal, posterior tibial or peroneal veins. 2. There is no superficial venous obstruction in the great saphenous vein. Conclusions Summary Venous duplex imaging and compression of the bilateral lower extremities were performed. The veins were adequately visualized. The bilateral venous systems were patent and compressible with no evidence of thrombus. The venous Doppler waveforms were phasic with respiration. Signature Velocities are measured in cm/s ; Diameters are measured in cm Performing Organization Address City/State/Zipcode Phone Number [facility] ECHO [facility]ART[facility] Urinalysis w/Microscopic + Reflex to Culture (02/09/2018 12:14 PM CDT) Color, UA Yellow [facility] Clarity, UA Clear [facility] Specific Underwood, UA 1.010 1.001 - 1.035 [facility] pH, UA 5.5 5.0 - 8.0 [facility] Protein, UA Negative Negative [facility] Glucose, UA Negative Negative [facility] Ketones, UA Negative Negative [facility] Bilirubin, UA Negative Negative [facility] Blood, UA Negative Negative [facility] Nitrite, UA Negative Negative [facility] Leukocytes, UA Negative Negative [facility] Urobilinogen, UA 0.2 0.2 - 1.0 mg/dL [facility] RBC, UA <1 /HPF [facility] WBC, UA 1 /HPF [facility] Mucus Rare [facility] Squam Epithel, UA 1 /HPF [facility] Hyaline Casts, UA 2 /LPF [facility] Specimen Source [facility] Specimen Urine - Urine, Voided Performing Organization Address City/State/Zipcode Phone Number [facility] [address] [place] [address] CENTER 2D Echo W/Doppler(CW/PW/Color) (02/09/2018 9:29 AM CDT) Ejection Fraction [facility] Narrative Performed At Transthoracic Echocardiography Report (TTE) [facility] Demographics Patient NameMya HARDEN of Study02/09/2018 KATIE Female Visit [id number] Room [id number] Number Date of 1945Referring PhysicianJAY Pena Age 72 year(s)Finishing Range Feeder Alisha Keene RD Hog Feeder Shelly Hylton, Interpreting Rachel Myers MD RDCSPhysician Procedure Type of Study TTE procedure:2DECHO W DOPPLER(CW/PW/COLOR) (Routine) Indications:Suspected cardiac source of emboli. Clinical History HGB 10.2 HCT 33.5 % A-FIB, CHF, CAD, HTN, CVA X2, FORMER SMOKER, DCCV (01/2018-AT [place]) Contrast Medium: Bubble Study. Height: 62 inches Weight: 77.11 kg (170 lbs) BSA: 1.78 m^2 BMI: 31.09 kg/m^2 HR: 72 bpm BP: 121/67 mmHg Summary 1. The left ventricle is chamber size (by vol index) is normal (female - LVED vol - 29-61ml/m2). LV septal thickness is normal (0.6-1.1cm). LV posterior wall thickness is mildly increased (1.2-1.4cm) . All of the LV segments are hyperkinetic . Global LV systolic function hyperdynamic . Estimated LVEF by qualitative assessment is increased (>70%) . High (cardiac index >4 L/min/m2) cardiac output state at rest is noted. Degree of diastolic dysfunction (LAP assessment) is inconclusive due to mitral annular calcification . 2. The right ventricular chamber size and systolic function are within normal limits. 3. LA size is severely enlarged (>48 ml/m2) . RA cavity size is normal . 4. IV saline contrast injection was negative for a PFO (patent foramen ovale) at rest and post Valsalva . 5. Moderate mitral annular calcification. Moderate MV leaflet calcification; mainly involves the anterior leaflet. Trace mitral regurgitation. Mean gradient of 6 mm Hg at heart rate of 76 bpm. Increase in gradient across the mitral valve due to a combination of the moderate MAC and high flow state. 6. Mild tricuspid regurgitation. Incomplete TR jet. The estimated peak systolic PA pressure is at least 40-45 mmHg . The estimated RA pressure by IVC dynamics 0-5mmHg . Previous Study No prior exam available for comparison. Signature Findings Technical Quality: Technically adequate exam. Left Ventricle The left ventricle is chamber size (by vol index) is normal (female - LVED vol - 29-61ml/m2). LV se ptal thickness is normal (0.6-1.1cm). LV po sterior wall thickness is mildly increased (1 .2-1.4cm) . All of the LV segments are hy perkinetic . Global LV systolic function hy perdynamic . Estimated LVEF by qualitative as sessment is increased (>70%) . High (cardiac in dex >4 L/min/m2) cardiac output state at rest is no kayla. Degree of diastolic dysfunction (LAP as sessment) is inconclusive due to mitral annular ca lcification . Left AtriumLA size is severely enlarged (>48 ml/m2) . Right VentricleThe right ventricular chamber size and systolic fu nction are within normal limits. Right Atrium RA cavity size is normal . Atrial SeptumIV saline contrast injection was negative for a PFO (p atent foramen ovale) at rest and post Valsalva . Aortic Valve Trileaflet aortic valve with mild AoV cusp th ickening and calcification. No aortic stenosis. Mi ld aortic regurgitation. Mitral Valve Moderate mitral annular calcification. Moderate MV le aflet calcification; mainly involves the anterior le aflet. Trace mitral regurgitation. Mean gradient of 6 mm Hg at heart rate of 76 bpm. Increase in gr adient across the mitral valve due to a co mbination of the moderate MAC and high flow st ate. Tricuspid ValveTV structure is normal. Mi ld tricuspid regurgitation. Incomplete TR jet. Th e estimated peak systolic PA pressure is at least 40 -45 mmHg . Pulmonic Valve PV is not well visualized; function appears normal by Doppler visualized. AortaAortic root size (SInus of Valsalva diameter) is no rmal . PericardiumNo pericardial effusion is visualized. An echo lucent space is noted consistent with pr ominent pericardial fat pad. IVC/SVC/PA/PV/PleuralThe estimated RA pressure by IVC dynamics 0-5mmHg . Th e inferior vena cava size is normal . Th e inferior vena cava is adequately visualized. Chambers/Structures Left Atrium LA Volume: 122.46 ml LA Vol. Index: 69 ml/m^2 Left Ventricle LVIDd: 5.5 cm LV Septum Diastolic: 1.13 cm LV PW Diastolic: 1.23 cm LVEDV Lux's:52.43 ml LVEDVI: 29 ml/m^2 LVOT Diameter: 1.8 cm Right Ventricle RV Systolic Pressure: 43.44 mmHg TAPSE: 2.2 cm Aorta Ao Root S of Barbara.: 3.09 cm Doppler/Quantitative Measurements Mitral Valve MV Peak E-Wave: 1.33 m/sMV Peak A-Wave: 1.77 m/s E/A Ratio: 0.75 Mean Velocity: 1.18 m/s Peak Gradient: 7.04 mmHg Mean Gradient: 6.18 mmHgDeceleration Time: 465.8 msec Area (continuity): 1.74 cm^2 MV VTI: 60.97 cm MV Ovidio. Peak: 1.99 m/s Aortic Valve Peak Velocity: 2.36 m/sMean Velocity: 1.76 m/s Peak Gradient: 22.27 mmHgMean Gradient: 13.48 mmHg AV Area (continuity): 2.25 cm^2 AV VTI: 47.08 cm AV DVI: 0.89 LVOT Peak Velocity: 2.09 m/sPeak Gradient: 17.6 mmHg Mean Velocity: 1.56 m/sMean Gradient: 11.07 mmHg LVOT Diameter: 1.8 cmLVOT VTI: 41.74 cm LVOT Area: 2.54 cm^2 LVOT SV:106.16 ml LVOT CO: 7.64 l/minLVOT CI: 4.29 l/min/m^2 Tricuspid Valve Estimated RAP: 5 mmHg TR Velocity: 3.1 m/s TR Gradient: 38.44 mmHg Pulmonic Valve Estimated PASP: 43.44 mmHg Procedure Note Interface, External Ris In - 02/09/2018 4:17 PM CDT Transthoracic Echocardiography Report (TTE) Demographics Patient Name TC HARDEN Date of Study 02/09/2018 KATIE Gender Female Visit Number [id number] Race Room Number 1434 Number Date of 1945 Referring Physician JAY Pena Age 72 year(s) Finishing Range Feeder Alisha Keene [facility] Hog Feeder Shelly Hylton, Interpreting Rachel Myers MD RDCS Physician Procedure Type of Study TTE procedure:2DECHO W DOPPLER(CW/PW/COLOR) (Routine) Indications:Suspected cardiac source of emboli. Clinical History HGB 10.2 HCT 33.5 % A-FIB, CHF, CAD, HTN, CVA X2, FORMER SMOKER, DCCV (01/2018-AT [place]) Contrast Medium: Bubble Study. Height: 62 inches Weight: 77.11 kg (170 lbs) BSA: 1.78 m^2 BMI: 31.09 kg/m^2 HR: 72 bpm BP: 121/67 mmHg Summary 1. The left ventricle is chamber size (by vol index) is normal (female - LVED vol - 29-61ml/m2). LV septal thickness is normal (0.6-1.1cm). LV posterior wall thickness is mildly increased (1.2-1.4cm) . All of the LV segments are hyperkinetic . Global LV systolic function hyperdynamic . Estimated LVEF by qualitative assessment is increased (>70%) . High (cardiac index >4 L/min/m2) cardiac output state at rest is noted. Degree of diastolic dysfunction (LAP assessment) is inconclusive due to mitral annular calcification . 2. The right ventricular chamber size and systolic function are within normal limits. 3. LA size is severely enlarged (>48 ml/m2) . RA cavity size is normal . 4. IV saline contrast injection was negative for a PFO (patent foramen ovale) at rest and post Valsalva . 5. Moderate mitral annular calcification. Moderate MV leaflet calcification; mainly involves the anterior leaflet. Trace mitral regurgitation. Mean gradient of 6 mm Hg at heart rate of 76 bpm. Increase in gradient across the mitral valve due to a combination of the moderate MAC and high flow state. 6. Mild tricuspid regurgitation. Incomplete TR jet. The estimated peak systolic PA pressure is at least 40-45 mmHg . The estimated RA pressure by IVC dynamics 0-5mmHg . Previous Study No prior exam available for comparison. Signature Findings Technical Quality: Technically adequate exam. Left Ventricle The left ventricle is chamber size (by vol index) is normal (female - LVED vol - 29-61ml/m2). LV septal thickness is normal (0.6-1.1cm). LV posterior wall thickness is mildly increased (1.2-1.4cm) . All of the LV segments are hyperkinetic . Global LV systolic function hyperdynamic . Estimated LVEF by qualitative assessment is increased (>70%) . High (cardiac index >4 L/min/m2) cardiac output state at rest is noted. Degree of diastolic dysfunction (LAP assessment) is inconclusive due to mitral annular calcification . Left Atrium LA size is severely enlarged (>48 ml/m2) . Right Ventricle The right ventricular chamber size and systolic function are within normal limits. Right Atrium RA cavity size is normal . Atrial Septum IV saline contrast injection was negative for a PFO (patent foramen ovale) at rest and post Valsalva . Aortic Valve Trileaflet aortic valve with mild AoV cusp thickening and calcification. No aortic stenosis. Mild aortic regurgitation. Mitral Valve Moderate mitral annular calcification. Moderate MV leaflet calcification; mainly involves the anterior leaflet. Trace mitral regurgitation. Mean gradient of 6 mm Hg at heart rate of 76 bpm. Increase in gradient across the mitral valve due to a combination of the moderate MAC and high flow state. Tricuspid Valve TV structure is normal. Mild tricuspid regurgitation. Incomplete TR jet. The estimated peak systolic PA pressure is at least 40-45 mmHg . Pulmonic Valve PV is not well visualized; function appears normal by Doppler visualized. Aorta Aortic root size (SInus of Valsalva diameter) is normal . Pericardium No pericardial effusion is visualized. An echo lucent space is noted consistent with prominent pericardial fat pad. IVC/SVC/PA/PV/Pleural The estimated RA pressure by IVC dynamics 0-5mmHg . The inferior vena cava size is normal . The inferior vena cava is adequately visualized. Chambers/Structures Left Atrium LA Volume: 122.46 ml LA Vol. Index: 69 ml/m^2 Left Ventricle LVIDd: 5.5 cm LV Septum Diastolic: 1.13 cm LV PW Diastolic: 1.23 cm LVEDV Lux's:52.43 ml LVEDVI: 29 ml/m^2 LVOT Diameter: 1.8 cm Right Ventricle RV Systolic Pressure: 43.44 mmHg TAPSE: 2.2 cm Aorta Ao Root S of Barbara.: 3.09 cm Doppler/Quantitative Measurements Mitral Valve MV Peak E-Wave: 1.33 m/s MV Peak A-Wave: 1.77 m/s E/A Ratio: 0.75 Mean Velocity: 1.18 m/s Peak Gradient: 7.04 mmHg Mean Gradient: 6.18 mmHg Deceleration Time: 465.8 msec Area (continuity): 1.74 cm^2 MV VTI: 60.97 cm MV Ovidio. Peak: 1.99 m/s Aortic Valve Peak Velocity: 2.36 m/s Mean Velocity: 1.76 m/s Peak Gradient: 22.27 mmHg Mean Gradient: 13.48 mmHg AV Area (continuity): 2.25 cm^2 AV VTI: 47.08 cm AV DVI: 0.89 LVOT Peak Velocity: 2.09 m/s Peak Gradient: 17.6 mmHg Mean Velocity: 1.56 m/s Mean Gradient: 11.07 mmHg LVOT Diameter: 1.8 cm LVOT VTI: 41.74 cm LVOT Area: 2.54 cm^2 LVOT SV:106.16 ml LVOT CO: 7.64 l/min LVOT CI: 4.29 l/min/m^2 Tricuspid Valve Estimated RAP: 5 mmHg TR Velocity: 3.1 m/s TR Gradient: 38.44 mmHg Pulmonic Valve Estimated PASP: 43.44 mmHg Performing Organization Address City/[facility] Phone Number [facility] Vitamin B12 and Folate (02/08/2018 5:10 AM CDT) Vitamin B12 460 213 - 816 pg/mL [facility] Folate 4.2 (L) >=7.0 ng/mL [facility] Specimen Blood Performing Organization Address [facility] Phone Number [address] [address] CENTER TSH/Free T4 If Indicated (02/08/2018 5:10 AM CDT)Only the most recent of2 resultswithin the time period is included. TSH 1.37 0.35 - 4.94 uIU/mL [facility] Specimen Blood Performing Organization Address [facility] Phone Number [address] [address] [phone] CENTER C-Reactive Protein (02/08/2018 5:10 AM CDT) CRP 7.42 (H) 0.00 - 0.50 mg/dL [facility] Specimen Blood Performing Organization Address City/[facility] Phone Number [address] [address] CENTER Phosphorus (02/08/2018 5:10 AM CDT) Phosphorus 3.7 2.3 - 4.7 mg/dL [facility] Specimen Blood Performing Organization Address [facility] Phone Number [address] [address] CENTER Lipid panel (02/08/2018 5:10 AM CDT)Only the most recent of2 resultswithin the time period is included. Triglycerides 71 mg/dL [facility] Cholesterol 135 mg/dL [facility] HDL 47 mg/dL [facility] LDL Calculated 74 mg/dL [facility] Specimen Blood Narrative Performed At [facility] Triglyceride Reference Range: Low Risk <150 [id number] High Risk 200-499 Very High Risk>=500 Cholesterol Reference Range: Low Risk <200 [id number] High Risk>240 HDL Cholesterol Reference Range: Low Risk >=60 High Risk <40 LDL Cholesterol Reference Range: Optimal<100 Near Usehhes998-578 [id number] [id number] Very High >=190 Performing Organization Address City/State/Zipcode Phone Number [facility] [address] [place] [address] CENTER Urinalysis w/Microscopic (02/07/2018 8:32 PM CDT) Color, UA Yellow [facility] Clarity, UA Clear [facility] Specific Underwood, UA 1.015 1.001 - 1.035 [facility] pH, UA 5.5 5.0 - 8.0 [facility] Protein, UA Negative Negative [facility] Glucose, UA Negative Negative [facility] Ketones, UA Negative Negative [facility] Bilirubin, UA Negative Negative [facility] Blood, UA Negative Negative [facility] Nitrite, UA Negative Negative [facility] Leukocytes, UA Large (A) Negative [facility] Urobilinogen, UA 0.2 0.2 - 1.0 mg/dL [facility] RBC, UA 2 /HPF [facility] WBC, UA 46 /HPF [facility] Bacteria, UA Rare [facility] Mucus Occasional [facility] Squam Epithel, UA 4 /HPF [facility] Hyaline Casts, UA 4 /LPF [facility] Specimen Source Urine, Voided [facility] Specimen Urine - Urine, Voided Performing Organization Address City/State/Zipcode Phone Number [facility] [address] [place] [address] CENTER MR brain without IV contrast (02/07/2018 6:38 PM CDT) Narrative Performed At FINAL REPORT [facility] Exam: MRI brain without contrast. Comparison:None. Clinical indication: Stroke.Ischemic Stroke Evaluation Technique: Multiplanar multi sequential MR imaging of the brain was performed without the administration of intravenous contrast. Findings: There is generalized parenchymal atrophy. There are foci of restricted diffusion in the bilateral cerebellum, left temporal lobe, right parietal subcortical white matter and bilateral chacon radiata consistent with acute infarcts. Mild hyperintensity on DWI in the right maureen may represent a subacute infarct or T2 shine through. There are mild to moderate white matter microvascular ischemic changes. There are chronic bilateral pontine and left caudate head lacunar infarcts. There is focal susceptibility artifact in the right frontal lobe which may represent prior microhemorrhage. There is no intracranial mass, mass effect, extra-axial collection, hydrocephalus or herniation. The skull base flow-voids are seen in keeping with their patency. The visualized paranasal sinuses and mastoid air cells are clear. The orbits, sella and parasellar regions are unremarkable. The craniocervical junction is normal. Impression: Small acute infarcts in the supratentorial and infratentorial brain, which may be embolic in etiology. No acute intracranial hemorrhage or mass effect. Cesx-fi-twdbgfxt white matter microvascular ischemic changes. Prior microhemorrhage in the right frontal lobe. Findings discussed with Dr Helm at 7:25 PM on 02/07/2018. Signed: Shane Rodriguez MD Report Verified Date/Time:02/07/2018 19:27:07 Reading Location: [address] Reading Room Procedure Note Interface, External Ris In - 02/07/2018 7:29 PM CDT FINAL REPORT Exam: MRI brain without contrast. Comparison: None. Clinical indication: Stroke. Ischemic Stroke Evaluation Technique: Multiplanar multi sequential MR imaging of the brain was performed without the administration of intravenous contrast. Findings: There is generalized parenchymal atrophy. There are foci of restricted diffusion in the bilateral cerebellum, left temporal lobe, right parietal subcortical white matter and bilateral chacon radiata consistent with acute infarcts. Mild hyperintensity on DWI in the right maureen may represent a subacute infarct or T2 shine through. There are mild to moderate white matter microvascular ischemic changes. There are chronic bilateral pontine and left caudate head lacunar infarcts. There is focal susceptibility artifact in the right frontal lobe which may represent prior microhemorrhage. There is no intracranial mass, mass effect, extra-axial collection, hydrocephalus or herniation. The skull base flow-voids are seen in keeping with their patency. The visualized paranasal sinuses and mastoid air cells are clear. The orbits, sella and parasellar regions are unremarkable. The craniocervical junction is normal. Impression: Small acute infarcts in the supratentorial and infratentorial brain, which may be embolic in etiology. No acute intracranial hemorrhage or mass effect. Wqod-ic-kpaepjqs white matter microvascular ischemic changes. Prior microhemorrhage in the right frontal lobe. Findings discussed with Dr Helm at 7:25 PM on 02/07/2018. Signed: Shane Rodriguez MD Report Verified Date/Time: 02/07/2018 19:27:07 Reading Location: [address] Reading Room Performing Organization Address City/State/Zipcode Phone Number [employer] RIS MRA neck without IV contrast (02/07/2018 6:38 PM CDT) Narrative Performed At FINAL REPORT [employer] R[facility] MRA head and neck without contrast. CLINICAL HISTORY: Stroke. Ischemic stroke evaluation.. COMPARISON: None. TECHNIQUE: Two- and three-dimensional [id number] MRA images of the intra- and extracranial carotid and vertebral arterial circulations were obtained, from which maximal intensity projection 3-D reconstructions were created. FINDINGS: MRA neck: There is irregularity of the bilateral proximal cervical internal carotid arteries which may be due to atherosclerosis. There is mild focal stenosis in the proximal left cervical internal carotid artery (approximately 44%). There is no vessel occlusion or hemodynamically significant stenosis in the extracranial carotid or vertebral arterial circulations. Flow is antegrade in both vertebral arteries. MRA [place]: There is irregularity of the bilateral carotid siphons which may be due to atherosclerosis. There is no vessel occlusion, flow-limiting stenosis, or aneurysm in the intracranial carotid or vertebrobasilar arterial circulations. 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 Mild focal stenosis of the proximal left cervical internal carotid artery. No vessel occlusion or hemodynamically significant stenosis by NASCET criteria. MRA head: Irregularity of the bilateral carotid siphons, which may be due to atherosclerosis.No vessel occlusion or flow-limiting stenosis. Signed: Shane Rodriguez MD Report Verified Date/Time:02/07/2018 19:25:57 Reading Location: [address] Transitional Reading Room Procedure Note Interface, External Ris In - 02/07/2018 7:28 PM CDT FINAL REPORT MRA head and neck without contrast. CLINICAL HISTORY: Stroke. Ischemic stroke evaluation.. COMPARISON: None. TECHNIQUE: Two- and three-dimensional [id number]-cc-[id number] MRA images of the intra- and extracranial carotid and vertebral arterial circulations were obtained, from which maximal intensity projection 3-D reconstructions were created. FINDINGS: MRA neck: There is irregularity of the bilateral proximal cervical internal carotid arteries which may be due to atherosclerosis. There is mild focal stenosis in the proximal left cervical internal carotid artery (approximately 44%). There is no vessel occlusion or hemodynamically significant stenosis in the extracranial carotid or vertebral arterial circulations. Flow is antegrade in both vertebral arteries. MRA [place]: There is irregularity of the bilateral carotid siphons which may be due to atherosclerosis. There is no vessel occlusion, flow-limiting stenosis, or aneurysm in the intracranial carotid or vertebrobasilar arterial circulations. 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 Mild focal stenosis of the proximal left cervical internal carotid artery. No vessel occlusion or hemodynamically significant stenosis by NASCET criteria. MRA head: Irregularity of the bilateral carotid siphons, which may be due to atherosclerosis. No vessel occlusion or flow-limiting stenosis. Signed: Shane Rodriguez MD Report Verified Date/Time: 02/07/2018 19:25:57 Reading Location: [address] Transitional Reading Room Performing Organization Address City/State/Zipcode Phone Number [facility] MRA head without IV contrast (02/07/2018 6:38 PM CDT) Narrative Performed At FINAL REPORT [employer] [facility] MRA head and neck without contrast. CLINICAL HISTORY: Stroke. Ischemic stroke evaluation.. COMPARISON: None. TECHNIQUE: Two- and three-dimensional lifh-bi-xamgoy MRA images of the intra- and extracranial carotid and vertebral arterial circulations were obtained, from which maximal intensity projection 3-D reconstructions were created. FINDINGS: MRA neck: There is irregularity of the bilateral proximal cervical internal carotid arteries which may be due to atherosclerosis. There is mild focal stenosis in the proximal left cervical internal carotid artery (approximately 44%). There is no vessel occlusion or hemodynamically significant stenosis in the extracranial carotid or vertebral arterial circulations. Flow is antegrade in both vertebral arteries. MRA [place]: There is irregularity of the bilateral carotid siphons which may be due to atherosclerosis. There is no vessel occlusion, flow-limiting stenosis, or aneurysm in the intracranial carotid or vertebrobasilar arterial circulations. 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 Mild focal stenosis of the proximal left cervical internal carotid artery. No vessel occlusion or hemodynamically significant stenosis by NASCET criteria. MRA head: Irregularity of the bilateral carotid siphons, which may be due to atherosclerosis.No vessel occlusion or flow-limiting stenosis. Signed: Shane Rodriguez MD Report Verified Date/Time:02/07/2018 19:25:57 Reading Location: [address] Transitional Reading Room Procedure Note Interface, External Ris In - 02/07/2018 7:28 PM CDT FINAL REPORT MRA head and neck without contrast. CLINICAL HISTORY: Stroke. Ischemic stroke evaluation.. COMPARISON: None. TECHNIQUE: Two- and three-dimensional [id number]-[id number] MRA images of the intra- and extracranial carotid and vertebral arterial circulations were obtained, from which maximal intensity projection 3-D reconstructions were created. FINDINGS: MRA neck: There is irregularity of the bilateral proximal cervical internal carotid arteries which may be due to atherosclerosis. There is mild focal stenosis in the proximal left cervical internal carotid artery (approximately 44%). There is no vessel occlusion or hemodynamically significant stenosis in the extracranial carotid or vertebral arterial circulations. Flow is antegrade in both vertebral arteries. MRA [place]: There is irregularity of the bilateral carotid siphons which may be due to atherosclerosis. There is no vessel occlusion, flow-limiting stenosis, or aneurysm in the intracranial carotid or vertebrobasilar arterial circulations. 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 Mild focal stenosis of the proximal left cervical internal carotid artery. No vessel occlusion or hemodynamically significant stenosis by NASCET criteria. MRA head: Irregularity of the bilateral carotid siphons, which may be due to atherosclerosis. No vessel occlusion or flow-limiting stenosis. Signed: Shane Rodriguez MD Report Verified Date/Time: 02/07/2018 19:25:57 Reading Location: [address] Transitional Reading Room Performing Organization Address City/State/Zipcode Phone Number [employer] RIS ECG 12 lead (02/07/2018 10:24 AM CDT) Narrative Performed At Ventricular Rate 76 BPM GE MUSE Atrial Rate 76 BPM P-R Interval 160 ms QRS Duration 72 ms Q-T Interval 226 ms QTC Calculation(Bazett) 254 ms P [place] 43 degrees R [place] -11 degrees T [place] -85 degrees Sinus rhythm with Premature atrial complexes Interatrial conduction delay Prolonged QT Abnormal ECG No previous ECGs available Confirmed by MD SONG, OSCAR ([id number]) on 02/08/2018 3:49:27 AM Procedure Note Interface, External Ris In - 02/08/2018 3:49 AM CDT Ventricular Rate 76 BPM Atrial Rate 76 BPM P-R Interval 160 ms QRS Duration 72 ms Q-T Interval 226 ms QTC Calculation(Bazett) 254 ms P [place] 43 degrees R [place] -11 degrees T [place] -85 degrees Sinus rhythm with Premature atrial complexes Interatrial conduction delay Prolonged QT Abnormal ECG No previous ECGs available Confirmed by MD SONG, OSCAR ([id number]) on 02/08/2018 3:49:27 AM Performing Organization Address City/State/Zipcode Phone Number [facility] Hemoglobin A1c (02/07/2018 8:24 AM CDT) Hemoglobin A1C 6.0 4.3 - 6.1 % [facility] Specimen Blood - Arm, Left Performing Organization Address City/State/Zipcode Phone Number [facility] [address], [place] [id number] [phone] CENTER after 10/24/2017 Insurance Payer Benefit Plan / Group Subscriber ID Type Phone Address [employer] - MEDICARE AAR/MEDICARE COMPLETE xxxxxxxxx MGD CARE [employer] - MEDICARE AARP/MEDICARE COMPLETE xxxxxxxxx MGD CARE Advance Directives For more information, please contact:[facility] [place] [address] [phone] Code Status Date Activated Date Inactivated Comments Full Code 02/11/2018 2:32 PM 02/13/2018 8:12 PM This code status was determined by: Patient Full Code 02/07/2018 4:10 AM 02/11/2018 2:32 PM This code status was determined by: Patient Full Code 10/21/2017 6:50 AM 10/23/2017 3:42 PM This code status was determined by: Patient Name Relationship Healthcare Agent Relationship Phone Yonatan Montoya Natural son Primary healthcare agent [phone] Max Montoya Natural son Primary healthcare agent [phone]
--- OUTSIDE RECORDS SUMMARY | 2018-10-25 07:22 | XMS REPORT ---
:1945 Author Organization [facility] Address [address] [place] [address] [address] [place] [address] Care Team Providers Name Role Phone MARISOL TELLEZ Unavailable Unavailable CARLOS SEO Unavailable Unavailable Problems This patient has no known problems. Allergies, Adverse Reactions, Alerts This patient has no known allergies or adverse reactions. Medications This patient has no known medications. Results Test Description Test Time Test Comments Text Results Atomic Results Result Comments MAGNESIUM 2018-02-13 07:41:00 Test Item Value Reference Range Comments MAGNESIUM (BEAKER) (test lleb=569) 1.9 mg/dL 1.6-2.6 BASIC METABOLIC [id number] 07:41:00 Test Item Value Reference Range Comments SODIUM (BEAKER) (test 137 meq/L 136-145 rjax=093) POTASSIUM (BEAKER) (test 3.5 meq/L 3.5-5.1 sjnl=155) CHLORIDE (BEAKER) (test 100 meq/L 98-107 fzkl=564) CO2 (BEAKER) (test 24 meq/L 22-29 wzrm=024) BLOOD UREA NITROGEN 13 mg/dL 7-21 (BEAKER) (test cxcl=554) CREATININE (BEAKER) (test 0.80 mg/dL 0.57-1.25 hwpo=571) GLUCOSE RANDOM (BEAKER) 71 mg/dL 70-105 (test xlix=575) CALCIUM (BEAKER) (test 9.5 mg/dL 8.4-10.2 gkdl=531) EGFR (BEAKER) (test 71 mL/min/1.73 sq m ESTIMATED GFR IS NOT lpfd=8831) ACCURATE CREATININE CLEARANCE IN PREDICTING GLOMERULAR FILTRATION RATE. ESTIMATED GFR IS NOT APPLICABLE FOR DIALYSIS PATIENTS. CBC W/PLT COUNT & AUTO [id number] 07:12:00 Test Item Value Reference Range Comments WHITE BLOOD CELL COUNT (BEAKER) (test bldf=080) 5.3 K/ L 3.5-10.5 RED BLOOD CELL COUNT (BEAKER) (test zmhl=265) 3.76 M/ L 3.93-5.22 HEMOGLOBIN (BEAKER) (test yyxp=705) 10.1 GM/DL 11.2-15.7 HEMATOCRIT (BEAKER) (test spdm=857) 33.1 % 34.1-44.9 MEAN CORPUSCULAR VOLUME (BEAKER) (test izyf=454) 88.0 fL 79.4-94.8 MEAN CORPUSCULAR HEMOGLOBIN (BEAKER) (test 26.9 pg 25.6-32.2 hpnv=883) MEAN CORPUSCULAR HEMOGLOBIN CONC (BEAKER) (test 30.5 GM/DL 32.2-35.5 zcup=144) RED CELL DISTRIBUTION WIDTH (BEAKER) (test 14.4 % 11.7-14.4 hktb=890) PLATELET COUNT (BEAKER) (test fxcy=754) 218 K/CU MM 150-450 MEAN PLATELET VOLUME (BEAKER) (test apau=921) 12.7 fL 9.4-12.3 NUCLEATED RED BLOOD CELLS (BEAKER) (test 0 /100 WBC 0-0 qegr=164) NEUTROPHILS RELATIVE PERCENT (BEAKER) (test 68 % ymkr=201) LYMPHOCYTES RELATIVE PERCENT (BEAKER) (test 19 % sfwk=525) MONOCYTES RELATIVE PERCENT (BEAKER) (test 9 % qtue=568) EOSINOPHILS RELATIVE PERCENT (BEAKER) (test 3 % ofwe=297) BASOPHILS RELATIVE PERCENT (BEAKER) (test 1 % jadm=032) NEUTROPHILS ABSOLUTE COUNT (BEAKER) (test 3.59 K/ L 1.56-6.13 gkwd=700) LYMPHOCYTES ABSOLUTE COUNT (BEAKER) (test 0.97 K/ L 1.18-3.74 ptsh=094) MONOCYTES ABSOLUTE COUNT (BEAKER) (test 0.46 K/ L 0.24-0.36 fkyp=411) EOSINOPHILS ABSOLUTE COUNT (BEAKER) (test 0.13 K/ L 0.04-0.36 ziky=286) BASOPHILS ABSOLUTE COUNT (BEAKER) (test 0.03 K/ L 0.01-0.08 mtyy=409) IMMATURE GRANULOCYTES-RELATIVE PERCENT (BEAKER) 1 % 0-1 (test hgdv=6290) [id number] 07:19:00 Test Item Value Reference Range Comments FERRITIN (BEAKER) (test iayy=797) 45 ng/mL 5-275 IRON, TIBC, % SAT. (WITHOUT FERRITIN)2018-02-12 07:01:00 Test Item Value Reference Range Comments IRON (BEAKER) (test mjro=574) 41 ug/dL 40-160 TOTAL IRON BINDING CAPACITY (BEAKER) (test 289 ug/dL 250-450 horu=606) IRON % SATURATION (2) (BEAKER) (test omhu=6257) 14 % 20-55 [id number] 06:41:00 Test Item Value Reference Range Comments MAGNESIUM (BEAKER) (test mevn=325) 1.9 mg/dL 1.6-2.6 BASIC METABOLIC [id number] 06:41:00 Test Item Value Reference Range Comments SODIUM (BEAKER) (test 135 meq/L 136-145 lvjb=978) POTASSIUM (BEAKER) (test 3.5 meq/L 3.5-5.1 gngu=413) CHLORIDE (BEAKER) (test 97 meq/L 98-107 cytd=515) CO2 (BEAKER) (test 26 meq/L 22-29 nbbq=530) BLOOD UREA NITROGEN 14 mg/dL 7-21 (BEAKER) (test inrd=203) CREATININE (BEAKER) (test 0.87 mg/dL 0.57-1.25 jans=631) GLUCOSE RANDOM (BEAKER) 91 mg/dL 70-105 (test uwlj=484) CALCIUM (BEAKER) (test 9.5 mg/dL 8.4-10.2 gqvk=881) EGFR (BEAKER) (test 64 mL/min/1.73 sq m ESTIMATED GFR IS NOT kfne=0855) ACCURATE CREATININE CLEARANCE IN PREDICTING GLOMERULAR FILTRATION RATE. ESTIMATED GFR IS NOT APPLICABLE FOR DIALYSIS PATIENTS. CBC W/PLT COUNT & AUTO [id number] 06:20:00 Test Item Value Reference Range Comments WHITE BLOOD CELL COUNT (BEAKER) (test xkki=892) 5.7 K/ L 3.5-10.5 RED BLOOD CELL COUNT (BEAKER) (test lfku=029) 3.60 M/ L 3.93-5.22 HEMOGLOBIN (BEAKER) (test svhx=112) 9.7 GM/DL 11.2-15.7 HEMATOCRIT (BEAKER) (test gjtm=605) 31.2 % 34.1-44.9 MEAN CORPUSCULAR VOLUME (BEAKER) (test qmvh=302) 86.7 fL 79.4-94.8 MEAN CORPUSCULAR HEMOGLOBIN (BEAKER) (test 26.9 pg 25.6-32.2 xgsg=318) MEAN CORPUSCULAR HEMOGLOBIN CONC (BEAKER) (test 31.1 GM/DL 32.2-35.5 orvb=432) RED CELL DISTRIBUTION WIDTH (BEAKER) (test 14.5 % 11.7-14.4 pxpt=003) PLATELET COUNT (BEAKER) (test sxmi=430) 208 K/CU MM 150-450 MEAN PLATELET VOLUME (BEAKER) (test ijbd=437) 12.7 fL 9.4-12.3 NUCLEATED RED BLOOD CELLS (BEAKER) (test 0 /100 WBC 0-0 xxxz=646) NEUTROPHILS RELATIVE PERCENT (BEAKER) (test 68 % nwyo=546) LYMPHOCYTES RELATIVE PERCENT (BEAKER) (test 19 % uxdl=209) MONOCYTES RELATIVE PERCENT (BEAKER) (test 8 % nikl=737) EOSINOPHILS RELATIVE PERCENT (BEAKER) (test 3 % hybi=724) BASOPHILS RELATIVE PERCENT (BEAKER) (test 1 % vibz=337) NEUTROPHILS ABSOLUTE COUNT (BEAKER) (test 3.90 K/ L 1.56-6.13 jczj=831) LYMPHOCYTES ABSOLUTE COUNT (BEAKER) (test 1.08 K/ L 1.18-3.74 ceds=801) MONOCYTES ABSOLUTE COUNT (BEAKER) (test 0.48 K/ L 0.24-0.36 ypbd=198) EOSINOPHILS ABSOLUTE COUNT (BEAKER) (test 0.17 K/ L 0.04-0.36 sjru=199) BASOPHILS ABSOLUTE COUNT (BEAKER) (test 0.03 K/ L 0.01-0.08 ehsp=979) IMMATURE GRANULOCYTES-RELATIVE PERCENT (BEAKER) 1 % 0-1 (test aczb=9880) [id number] 06:02:00 Test Item Value Reference Range Comments MAGNESIUM (BEAKER) (test jabg=625) 1.8 mg/dL 1.6-2.6 BASIC METABOLIC [id number] 06:02:00 Test Item Value Reference Range Comments SODIUM (BEAKER) (test 135 meq/L 136-145 iydj=775) POTASSIUM (BEAKER) (test 3.4 meq/L 3.5-5.1 lfjw=180) CHLORIDE (BEAKER) (test 97 meq/L 98-107 fhgu=325) CO2 (BEAKER) (test 28 meq/L 22-29 lklz=177) BLOOD UREA NITROGEN 19 mg/dL 7-21 (BEAKER) (test qvzj=429) CREATININE (BEAKER) (test 1.04 mg/dL 0.57-1.25 aenr=530) GLUCOSE RANDOM (BEAKER) 98 mg/dL 70-105 (test gtst=667) CALCIUM (BEAKER) (test 9.6 mg/dL 8.4-10.2 agip=495) EGFR (BEAKER) (test 52 mL/min/1.73 sq m ESTIMATED GFR IS NOT hnsb=6590) ACCURATE CREATININE CLEARANCE IN PREDICTING GLOMERULAR FILTRATION RATE. ESTIMATED GFR IS NOT APPLICABLE FOR DIALYSIS PATIENTS. CBC W/PLT COUNT & AUTO [id number] 05:35:00 Test Item Value Reference Range Comments WHITE BLOOD CELL COUNT (BEAKER) (test gwnr=846) 5.8 K/ L 3.5-10.5 RED BLOOD CELL COUNT (BEAKER) (test gpsp=448) 3.58 M/ L 3.93-5.22 HEMOGLOBIN (BEAKER) (test kbnv=990) 9.9 GM/DL 11.2-15.7 HEMATOCRIT (BEAKER) (test ucpj=270) 31.5 % 34.1-44.9 MEAN CORPUSCULAR VOLUME (BEAKER) (test ofuw=218) 88.0 fL 79.4-94.8 MEAN CORPUSCULAR HEMOGLOBIN (BEAKER) (test 27.7 pg 25.6-32.2 ysdn=352) MEAN CORPUSCULAR HEMOGLOBIN CONC (BEAKER) (test 31.4 GM/DL 32.2-35.5 pkfs=071) RED CELL DISTRIBUTION WIDTH (BEAKER) (test 14.5 % 11.7-14.4 kasc=022) PLATELET COUNT (BEAKER) (test bkft=376) 183 K/CU MM 150-450 MEAN PLATELET VOLUME (BEAKER) (test bqwi=658) 12.1 fL 9.4-12.3 NUCLEATED RED BLOOD CELLS (BEAKER) (test 0 /100 WBC 0-0 rshn=722) NEUTROPHILS RELATIVE PERCENT (BEAKER) (test 68 % ehev=261) LYMPHOCYTES RELATIVE PERCENT (BEAKER) (test 18 % pdyc=476) MONOCYTES RELATIVE PERCENT (BEAKER) (test 9 % nioe=000) EOSINOPHILS RELATIVE PERCENT (BEAKER) (test 4 % pkxc=558) BASOPHILS RELATIVE PERCENT (BEAKER) (test 1 % fomn=304) NEUTROPHILS ABSOLUTE COUNT (BEAKER) (test 3.90 K/ L 1.56-6.13 soyt=424) LYMPHOCYTES ABSOLUTE COUNT (BEAKER) (test 1.05 K/ L 1.18-3.74 cfgt=410) MONOCYTES ABSOLUTE COUNT (BEAKER) (test 0.51 K/ L 0.24-0.36 jqcb=864) EOSINOPHILS ABSOLUTE COUNT (BEAKER) (test 0.20 K/ L 0.04-0.36 jvex=956) BASOPHILS ABSOLUTE COUNT (BEAKER) (test 0.03 K/ L 0.01-0.08 miso=842) IMMATURE GRANULOCYTES-RELATIVE PERCENT (BEAKER) 1 % 0-1 (test levp=9245) MR, SPINE, LUMBAR, WITHOUT [id number] 14:56:00FINAL REPORT MRI of the lumbar spine Comparison: [...] arthrosis but no canal or foraminal compromise. L2 /3: Negative L1/2: Negative T12/L1: Negative The conus tip at the L1 level. A 3 mm cavitation is seen in the distal cord at the T12 level, discussed on concurrent thoracic spine MRI. Thevisualized paraspinal and retroperitoneal structures are unremarkable. Marrow is unremarkable. Impressions: Multilevel degenerative changes. There is no significant central canal stenosis at any level.Left-sided foraminal and subarticular compromise should be correlated with corresponding specific radiculopathy as detailed above. Signed: Catrachita Calle Verified Date/Time: 02/10/2018 14:56:55Reading Location: [facility] C0[facility] Consult Reading Room MR, SPINE, THORACIC, WITHOUT [id number] 14:43: 00FINAL REPORT MRI of the thoracic spine Comparison : None Reason for exam: Thoracic and lumbar spine trauma, low back pain Discussion: Sagittal and axial multisequence MRimaging of the thoracic spine was provided Chronic [...] thoracic spine MRI follow-up. Signed: Catrachita Calle Verified Date/Time: 02/10/2018 14:43:52 Reading Location: [facility] [id number] Consult Reading Room [id number] 04:38:00 Test Item Value Reference Range Comments MAGNESIUM (BEAKER) (test qoku=032) 2.1 mg/dL 1.6-2.6 BASIC METABOLIC [id number] 04:38:00 Test Item Value Reference Range Comments SODIUM (BEAKER) (test 137 meq/L 136-145 edbw=947) POTASSIUM (BEAKER) (test 3.4 meq/L 3.5-5.1 xwka=106) CHLORIDE (BEAKER) (test 96 meq/L 98-107 muvo=093) CO2 (BEAKER) (test 30 meq/L 22-29 nnit=066) BLOOD UREA NITROGEN 15 mg/dL 7-21 (BEAKER) (test keat=720) CREATININE (BEAKER) (test 1.04 mg/dL 0.57-1.25 lgjs=022) GLUCOSE RANDOM (BEAKER) 92 mg/dL 70-105 (test gmjn=005) CALCIUM (BEAKER) (test 9.9 mg/dL 8.4-10.2 kudq=084) EGFR (BEAKER) (test 52 mL/min/1.73 sq m ESTIMATED GFR IS NOT gdrt=2732) ACCURATE CREATININE CLEARANCE IN PREDICTING GLOMERULAR FILTRATION RATE. ESTIMATED GFR IS NOT APPLICABLE FOR DIALYSIS PATIENTS. CBC W/PLT COUNT & AUTO [id number] 04:21:00 Test Item Value Reference Range Comments WHITE BLOOD CELL COUNT (BEAKER) (test mtjx=588) 6.7 K/ L 3.5-10.5 RED BLOOD CELL COUNT (BEAKER) (test whjs=494) 3.53 M/ L 3.93-5.22 HEMOGLOBIN (BEAKER) (test lgoy=171) 9.3 GM/DL 11.2-15.7 HEMATOCRIT (BEAKER) (test siao=500) 31.0 % 34.1-44.9 MEAN CORPUSCULAR VOLUME (BEAKER) (test ghtz=086) 87.8 fL 79.4-94.8 MEAN CORPUSCULAR HEMOGLOBIN (BEAKER) (test 26.3 pg 25.6-32.2 xhqd=434) MEAN CORPUSCULAR HEMOGLOBIN CONC (BEAKER) (test 30.0 GM/DL 32.2-35.5 ctsy=771) RED CELL DISTRIBUTION WIDTH (BEAKER) (test 14.6 % 11.7-14.4 vaao=975) PLATELET COUNT (BEAKER) (test eisb=125) 208 K/CU MM 150-450 MEAN PLATELET VOLUME (BEAKER) (test naja=689) 12.6 fL 9.4-12.3 NUCLEATED RED BLOOD CELLS (BEAKER) (test 0 /100 WBC 0-0 ndmm=014) NEUTROPHILS RELATIVE PERCENT (BEAKER) (test 67 % cfyp=669) LYMPHOCYTES RELATIVE PERCENT (BEAKER) (test 20 % jcgm=705) MONOCYTES RELATIVE PERCENT (BEAKER) (test 10 % ydmv=751) EOSINOPHILS RELATIVE PERCENT (BEAKER) (test 2 % dayf=349) BASOPHILS RELATIVE PERCENT (BEAKER) (test 0 % ybml=018) NEUTROPHILS ABSOLUTE COUNT (BEAKER) (test 4.52 K/ L 1.56-6.13 nvjs=030) LYMPHOCYTES ABSOLUTE COUNT (BEAKER) (test 1.34 K/ L 1.18-3.74 ysdc=482) MONOCYTES ABSOLUTE COUNT (BEAKER) (test 0.66 K/ L 0.24-0.36 wrwe=240) EOSINOPHILS ABSOLUTE COUNT (BEAKER) (test 0.13 K/ L 0.04-0.36 fxjr=520) BASOPHILS ABSOLUTE COUNT (BEAKER) (test 0.03 K/ L 0.01-0.08 kjir=542) IMMATURE GRANULOCYTES-RELATIVE PERCENT (BEAKER) 1 % 0-1 (test sjsm=9714) URINALYSIS W/ REFLEX URINE [id number] 12:55:00 Test Item Value Reference Range Comments COLOR (BEAKER) (test fogi=304) Yellow CLARITY (BEAKER) (test vlga=150) Clear SPECIFIC GRAVITY UA (BEAKER) (test ciiq=009) 1.010 1.001-1.035 PH UA (BEAKER) (test rymk=518) 5.5 5.0-8.0 PROTEIN UA (BEAKER) (test ytxo=908) Negative Negative GLUCOSE UA (BEAKER) (test tweg=435) Negative Negative KETONES UA (BEAKER) (test nndi=313) Negative Negative BILIRUBIN UA (BEAKER) (test jykp=694) Negative Negative BLOOD UA (BEAKER) (test ygeg=852) Negative Negative NITRITE UA (BEAKER) (test izaa=995) Negative Negative LEUKOCYTE ESTERASE UA (BEAKER) (test daua=595) Negative Negative UROBILINOGEN UA (BEAKER) (test hrgj=912) 0.2 mg/dL 0.2-1.0 RBC UA (BEAKER) (test wvbq=688) < /HPF WBC UA (BEAKER) (test zgud=778) 1 /HPF MUCUS (BEAKER) (test aaew=2574) Rare SQUAMOUS EPITHELIAL (BEAKER) (test gxis=256) 1 /HPF HYALINE CASTS (BEAKER) (test vayc=977) 2 /LPF SOURCE(BEAKER) (test dehl=3094) [id number] 05:52:00 Test Item Value Reference Range Comments MAGNESIUM (BEAKER) (test ngbz=379) 2.1 mg/dL 1.6-2.6 BASIC METABOLIC [id number] 05:52:00 Test Item Value Reference Range Comments SODIUM (BEAKER) (test 137 meq/L 136-145 zzbw=630) POTASSIUM (BEAKER) (test 3.5 meq/L 3.5-5.1 gmeg=856) CHLORIDE (BEAKER) (test 98 meq/L 98-107 hmbh=680) CO2 (BEAKER) (test 28 meq/L 22-29 kyty=438) BLOOD UREA NITROGEN 15 mg/dL 7-21 (BEAKER) (test cmhg=359) CREATININE (BEAKER) (test 1.03 mg/dL 0.57-1.25 ekfj=747) GLUCOSE RANDOM (BEAKER) 97 mg/dL 70-105 (test xkqe=139) CALCIUM (BEAKER) (test 9.8 mg/dL 8.4-10.2 wcto=486) EGFR (BEAKER) (test 53 mL/min/1.73 sq m ESTIMATED GFR IS NOT iakl=5931) ACCURATE CREATININE CLEARANCE IN PREDICTING GLOMERULAR FILTRATION RATE. ESTIMATED GFR IS NOT APPLICABLE FOR DIALYSIS PATIENTS. CBC W/PLT COUNT & AUTO [id number] 05:33:00 Test Item Value Reference Range Comments WHITE BLOOD CELL COUNT (BEAKER) (test nkki=849) 5.9 K/ L 3.5-10.5 RED BLOOD CELL COUNT (BEAKER) (test whxc=252) 3.83 M/ L 3.93-5.22 HEMOGLOBIN (BEAKER) (test vsvg=697) 10.2 GM/DL 11.2-15.7 HEMATOCRIT (BEAKER) (test pgqt=362) 33.5 % 34.1-44.9 MEAN CORPUSCULAR VOLUME (BEAKER) (test hqem=454) 87.5 fL 79.4-94.8 MEAN CORPUSCULAR HEMOGLOBIN (BEAKER) (test 26.6 pg 25.6-32.2 ucfw=117) MEAN CORPUSCULAR HEMOGLOBIN CONC (BEAKER) (test 30.4 GM/DL 32.2-35.5 qlfa=205) RED CELL DISTRIBUTION WIDTH (BEAKER) (test 14.6 % 11.7-14.4 oymd=076) PLATELET COUNT (BEAKER) (test olyk=898) 182 K/CU MM 150-450 MEAN PLATELET VOLUME (BEAKER) (test axex=864) 12.6 fL 9.4-12.3 NUCLEATED RED BLOOD CELLS (BEAKER) (test 0 /100 WBC 0-0 tufj=083) NEUTROPHILS RELATIVE PERCENT (BEAKER) (test 67 % ecdc=981) LYMPHOCYTES RELATIVE PERCENT (BEAKER) (test 20 % ozhp=005) MONOCYTES RELATIVE PERCENT (BEAKER) (test 8 % tugx=747) EOSINOPHILS RELATIVE PERCENT (BEAKER) (test 3 % pxvq=012) BASOPHILS RELATIVE PERCENT (BEAKER) (test 1 % uxoh=505) NEUTROPHILS ABSOLUTE COUNT (BEAKER) (test 3.99 K/ L 1.56-6.13 aexc=793) LYMPHOCYTES ABSOLUTE COUNT (BEAKER) (test 1.20 K/ L 1.18-3.74 riwa=618) MONOCYTES ABSOLUTE COUNT (BEAKER) (test 0.49 K/ L 0.24-0.36 lsqn=568) EOSINOPHILS ABSOLUTE COUNT (BEAKER) (test 0.15 K/ L 0.04-0.36 ytrd=169) BASOPHILS ABSOLUTE COUNT (BEAKER) (test 0.04 K/ L 0.01-0.08 jkry=842) IMMATURE GRANULOCYTES-RELATIVE PERCENT (BEAKER) 1 % 0-1 (test jivm=6053) VITAMIN B12 AND [id number] 06:37:00 Test Item Value Reference Range Comments VITAMIN B12 (BEAKER) (test jwah=214) 460 pg/mL 213-816 FOLATE (BEAKER) (test sjlz=056) 4.2 ng/mL >=7.0 TSH/FREE T4 IF [id number] 06:22:00 Test Item Value Reference Range Comments THYROID STIMULATING HORMONE (BEAKER) (test 1.37 uIU/mL 0.35-4.94 hypg=084) [id number] 06:16:00 Test Item Value Reference Range Comments PHOSPHORUS (BEAKER) (test czac=025) 3.7 mg/dL 2.3-4.7 [id number] 06:16:00 Test Item Value Reference Range Comments MAGNESIUM (BEAKER) (test lhfm=919) 1.9 mg/dL 1.6-2.6 BASIC METABOLIC [id number] 06:16:00 Test Item Value Reference Range Comments SODIUM (BEAKER) (test 135 meq/L 136-145 wnvk=648) POTASSIUM (BEAKER) (test 3.6 meq/L 3.5-5.1 ubrl=395) CHLORIDE (BEAKER) (test 100 meq/L 98-107 pkzh=783) CO2 (BEAKER) (test 25 meq/L 22-29 gryb=951) BLOOD UREA NITROGEN 16 mg/dL 7-21 (BEAKER) (test tyxi=219) CREATININE (BEAKER) (test 0.89 mg/dL 0.57-1.25 pehb=329) GLUCOSE RANDOM (BEAKER) 94 mg/dL 70-105 (test qzgf=558) CALCIUM (BEAKER) (test 9.2 mg/dL 8.4-10.2 tekj=848) EGFR (BEAKER) (test 63 mL/min/1.73 sq m ESTIMATED GFR IS NOT qfln=2559) ACCURATE CREATININE CLEARANCE IN PREDICTING GLOMERULAR FILTRATION RATE. ESTIMATED GFR IS NOT APPLICABLE FOR DIALYSIS PATIENTS. LIPID [id number] 06:16:00 Test Item Value Reference Range Comments TRIGLYCERIDES (BEAKER) (test ckri=952) 71 mg/dL CHOLESTEROL (BEAKER) (test emqp=653) 135 mg/dL HDL CHOLESTEROL (BEAKER) (test xvhl=262) 47 mg/dL LDL CHOLESTEROL CALCULATED (BEAKER) (test 74 mg/dL mdgk=476) Triglyceride Reference Range: Low Risk <150 Borderline 150- 199 High Risk 200-499 Very High Risk >=500Cholesterol Reference Range: Low Risk <200 Borderline 200-239 High Risk > 240HDL Cholesterol Reference Range: Low Risk >=60 High Risk <40LDL Cholesterol Reference Range: Optimal <100 Near Optimal 100-129 Borderline 130-159 High 160-189 Very High >=190C-REACTIVE [id number] 06:16:00 Test Item Value Reference Range Comments C-REACTIVE PROTEIN (BEAKER) (test dprb=562) 7.42 mg/dL 0.00-0.50 CBC W/PLT COUNT & AUTO [id number] 05:44:00 Test Item Value Reference Range Comments WHITE BLOOD CELL COUNT (BEAKER) (test mbzr=755) 5.6 K/ L 3.5-10.5 RED BLOOD CELL COUNT (BEAKER) (test tzok=375) 3.35 M/ L 3.93-5.22 HEMOGLOBIN (BEAKER) (test zotd=247) 9.0 GM/DL 11.2-15.7 HEMATOCRIT (BEAKER) (test dmyl=042) 29.6 % 34.1-44.9 MEAN CORPUSCULAR VOLUME (BEAKER) (test jusa=844) 88.4 fL 79.4-94.8 MEAN CORPUSCULAR HEMOGLOBIN (BEAKER) (test 26.9 pg 25.6-32.2 zvhs=962) MEAN CORPUSCULAR HEMOGLOBIN CONC (BEAKER) (test 30.4 GM/DL 32.2-35.5 celx=961) RED CELL DISTRIBUTION WIDTH (BEAKER) (test 14.6 % 11.7-14.4 cnba=009) PLATELET COUNT (BEAKER) (test nsqu=841) 163 K/CU MM 150-450 MEAN PLATELET VOLUME (BEAKER) (test rlof=464) 12.7 fL 9.4-12.3 NUCLEATED RED BLOOD CELLS (BEAKER) (test 0 /100 WBC 0-0 rapm=327) NEUTROPHILS RELATIVE PERCENT (BEAKER) (test 67 % xamn=518) LYMPHOCYTES RELATIVE PERCENT (BEAKER) (test 19 % mqop=102) MONOCYTES RELATIVE PERCENT (BEAKER) (test 10 % muwn=992) EOSINOPHILS RELATIVE PERCENT (BEAKER) (test 2 % prwo=710) BASOPHILS RELATIVE PERCENT (BEAKER) (test 1 % rslh=769) NEUTROPHILS ABSOLUTE COUNT (BEAKER) (test 3.72 K/ L 1.56-6.13 rujb=359) LYMPHOCYTES ABSOLUTE COUNT (BEAKER) (test 1.08 K/ L 1.18-3.74 etmd=671) MONOCYTES ABSOLUTE COUNT (BEAKER) (test 0.58 K/ L 0.24-0.36 ablw=052) EOSINOPHILS ABSOLUTE COUNT (BEAKER) (test 0.10 K/ L 0.04-0.36 bfzv=403) BASOPHILS ABSOLUTE COUNT (BEAKER) (test 0.03 K/ L 0.01-0.08 rszl=150) IMMATURE GRANULOCYTES-RELATIVE PERCENT (BEAKER) 1 % 0-1 (test tpxw=1348) URINALYSIS W/ [id number] 20:50:00 Test Item Value Reference Range Comments COLOR (BEAKER) (test vowt=331) Yellow CLARITY (BEAKER) (test ghyr=805) Clear SPECIFIC GRAVITY UA (BEAKER) (test dfea=653) 1.015 1.001-1.035 PH UA (BEAKER) (test elfb=198) 5.5 5.0-8.0 PROTEIN UA (BEAKER) (test osqw=720) Negative Negative GLUCOSE UA (BEAKER) (test qbjv=324) Negative Negative KETONES UA (BEAKER) (test shhz=455) Negative Negative BILIRUBIN UA (BEAKER) (test gtkh=220) Negative Negative BLOOD UA (BEAKER) (test znyo=782) Negative Negative NITRITE UA (BEAKER) (test njzq=046) Negative Negative LEUKOCYTE ESTERASE UA (BEAKER) (test twrr=528) Large Negative UROBILINOGEN UA (BEAKER) (test tzon=050) 0.2 mg/dL 0.2-1.0 RBC UA (BEAKER) (test svmu=906) 2 /HPF WBC UA (BEAKER) (test lhyb=698) 46 /HPF BACTERIA (BEAKER) (test ilkb=853) Rare MUCUS (BEAKER) (test zlea=0244) Occasional SQUAMOUS EPITHELIAL (BEAKER) (test ydqf=311) 4 /HPF HYALINE CASTS (BEAKER) (test xeua=451) 4 /LPF SOURCE(BEAKER) (test ilcl=0947) Urine, Voided MR, BRAIN, WITHOUT [id number] 19:27:00Reason for exam:->Ischemic Stroke EvaluationFINAL REPORT Exam: MRI brain without contrast. Comparison: None. Clinicalindication: Stroke. Ischemic Stroke Evaluation Technique: Multiplanar multi sequential MR imaging of the brain was performed without the administration of intravenous contrast. Findings: There is generalized parenchymal atrophy. There are foci of restricted diffusion in the bilateral cerebellum, left temporal lobe, right parietal subcortical white matter and bilateral chacon radiata consistent withacute infarcts. Mild hyperintensity on DWI in the [...] or herniation. The skull base flow-voids are seenin keeping with their patency. The visualized paranasal sinuses and mastoid air cells are clear. The orbits, sella and parasellar regions are unremarkable. The craniocervical junction is normal. Impression: Small acute infarcts in the supratentorial and infratentorial brain, which may be embolic inetiology. No acute intracranial hemorrhage or mass effect. Mild-to- moderate white matter microvascular ischemic changes.Prior microhemorrhage in the right frontal lobe. Findings discussed with Dr Helm at 7:25 PM on 02/07/2018. Signed: Etta Rodriguez MDReport Verified Date/Time: 02/07/2018 19:27:07 Reading Location: [address] Reading Room MR, MRA, BRAIN, WITHOUT [id number] 19:25:00Reason for exam:->Ischemic Stroke EvaluationFINAL REPORT MRA head and neck without contrast. CLINICAL HISTORY: Stroke. Ischemic stroke evaluation.. COMPARISON: None. TECHNIQUE: Two- and three-dimensional [id number]-[id number] MRA images of the intra- and extracranial [...] occlusion or hemodynamically significant stenosis in the extracranialcarotid or vertebral arterial circulations. Flow is antegrade in both vertebral arteries. MRA circleof [place]legria: There is irregularity of the bilateral carotid siphons which may be due to atherosclerosis. There is no vessel occlusion, flow-limiting stenosis, or aneurysm in the intracranial carotid or vertebrobasilar arterial circulations. 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 Mild focal stenosis of the proximal left cervicalinternal carotid artery. No vessel occlusion or hemodynamically significant stenosis by NASCET criteria. MRA head: Irregularity of the bilateral carotid siphons, which may be due to atherosclerosis. No vessel occlusion or flow-limiting stenosis. Signed: Etta Rodriguez Verified Date/Time:02/07/2018 19:25:57 Reading Location: [address] Transitional Reading Room MR, MRA, NECK, WITHOUT IV [id number] 19:25:00Reason for exam:->Ischemic Stroke EvaluationFINAL REPORT MRA head and neck without contrast. CLINICAL HISTORY: Stroke. Ischemic stroke evaluation.. COMPARISON: None. TECHNIQUE: Two- and three-dimensional pxma-[id number]-dexnec MRA images of the intra- and extracranial carotid and vertebral arterial circulations were obtained, from which maximal intensity projection 3-D reconstructions were created. FINDINGS: MRA neck: There is irregularity of the bilateral proximal cervical internal carotid arteries which may be due to atherosclerosis. There is mild focal stenosis in the proximal left cervical internal carotid artery ( approximately 44%). There is no vessel occlusion or hemodynamically significant stenosis in the extracranialcarotid or vertebral arterial circulations. Flow is antegrade in both vertebral arteries. MRA circleof Alegria: There is irregularity of the bilateral carotid siphons which may be due to atherosclerosis. There is no vessel occlusion, flow-limiting stenosis, or aneurysm in the intracranial carotid or vertebrobasilar arterial circulations. 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 Mild focal stenosis of the proximal left cervicalinternal carotid artery. No vessel occlusion or hemodynamically significant stenosis by NASCET criteria. MRA head: Irregularity of the bilateral carotid siphons, which may be due to atherosclerosis. No vessel occlusion or flow-limiting stenosis. Signed: Etta Rodriguez Verified Date/Time:02/07/2018 19:25:57 Reading Location: [address] Transitional Reading Room HEMOGLOBIN [id number] 12:15:00 Test Item Value Reference Range Comments HEMOGLOBIN A1C (BEAKER) (test lsuz=885) 6.0 % 4.3-6.1 TSH/FREE T4 IF [id number] 12:13:00 Test Item Value Reference Range Comments THYROID STIMULATING HORMONE (BEAKER) (test 1.43 uIU/mL 0.35-4.94 ekcn=568) LIPID [id number] 08:53:00 Test Item Value Reference Range Comments TRIGLYCERIDES (BEAKER) (test yqnd=781) 67 mg/dL CHOLESTEROL (BEAKER) (test dpmt=621) 142 mg/dL HDL CHOLESTEROL (BEAKER) (test hptu=852) 48 mg/dL LDL CHOLESTEROL CALCULATED (BEAKER) (test 81 mg/dL vkgy=638) Triglyceride Reference Range: Low Risk <150 Borderline 150- 199 High Risk 200-499 Very High Risk >=500Cholesterol Reference Range: Low Risk <200 Borderline 200-239 High Risk > 240HDL Cholesterol Reference Range: Low Risk >=60 High Risk <40LDL Cholesterol Reference Range: Optimal <100 Near Optimal 100-129 Borderline 130-159 High 160-189 Very High >=190BASIC METABOLIC [id number] 08:53:00 Test Item Value Reference Range Comments SODIUM (BEAKER) (test 135 meq/L 136-145 rnsk=768) POTASSIUM (BEAKER) (test 3.6 meq/L 3.5-5.1 bvxf=571) CHLORIDE (BEAKER) (test 101 meq/L 98-107 qzcz=561) CO2 (BEAKER) (test 25 meq/L 22-29 parv=818) BLOOD UREA NITROGEN 15 mg/dL 7-21 (BEAKER) (test svwc=658) CREATININE (BEAKER) (test 0.86 mg/dL 0.57-1.25 ffjl=846) GLUCOSE RANDOM (BEAKER) 96 mg/dL 70-105 (test qnbb=107) CALCIUM (BEAKER) (test 9.2 mg/dL 8.4-10.2 oclz=481) EGFR (BEAKER) (test 65 mL/min/1.73 sq m ESTIMATED GFR IS NOT khty=4316) ACCURATE CREATININE CLEARANCE IN PREDICTING GLOMERULAR FILTRATION RATE. ESTIMATED GFR IS NOT APPLICABLE FOR DIALYSIS PATIENTS. CBC W/PLT COUNT & AUTO [id number] 08:43:00 Test Item Value Reference Range Comments WHITE BLOOD CELL COUNT (BEAKER) (test ovnd=449) 5.8 K/ L 3.5-10.5 RED BLOOD CELL COUNT (BEAKER) (test ophl=120) 3.43 M/ L 3.93-5.22 HEMOGLOBIN (BEAKER) (test wcnu=176) 9.4 GM/DL 11.2-15.7 HEMATOCRIT (BEAKER) (test rpit=259) 30.0 % 34.1-44.9 MEAN CORPUSCULAR VOLUME (BEAKER) (test oizm=461) 87.5 fL 79.4-94.8 MEAN CORPUSCULAR HEMOGLOBIN (BEAKER) (test 27.4 pg 25.6-32.2 novr=520) MEAN CORPUSCULAR HEMOGLOBIN CONC (BEAKER) (test 31.3 GM/DL 32.2-35.5 mtqq=039) RED CELL DISTRIBUTION WIDTH (BEAKER) (test 14.8 % 11.7-14.4 desw=177) PLATELET COUNT (BEAKER) (test uuum=059) 166 K/CU MM 150-450 MEAN PLATELET VOLUME (BEAKER) (test vpxh=772) 12.5 fL 9.4-12.3 NUCLEATED RED BLOOD CELLS (BEAKER) (test 0 /100 WBC 0-0 pwwv=992) NEUTROPHILS RELATIVE PERCENT (BEAKER) (test 65 % htxk=826) LYMPHOCYTES RELATIVE PERCENT (BEAKER) (test 19 % mzqf=016) MONOCYTES RELATIVE PERCENT (BEAKER) (test 12 % hbpk=653) EOSINOPHILS RELATIVE PERCENT (BEAKER) (test 2 % nauj=660) BASOPHILS RELATIVE PERCENT (BEAKER) (test 1 % rpfj=006) NEUTROPHILS ABSOLUTE COUNT (BEAKER) (test 3.77 K/ L 1.56-6.13 mljv=148) LYMPHOCYTES ABSOLUTE COUNT (BEAKER) (test 1.10 K/ L 1.18-3.74 dzop=232) MONOCYTES ABSOLUTE COUNT (BEAKER) (test 0.72 K/ L 0.24-0.36 uwue=390) EOSINOPHILS ABSOLUTE COUNT (BEAKER) (test 0.12 K/ L 0.04-0.36 mwcs=686) BASOPHILS ABSOLUTE COUNT (BEAKER) (test 0.03 K/ L 0.01-0.08 vmuy=559) IMMATURE GRANULOCYTES-RELATIVE PERCENT (BEAKER) 1 % 0-1 (test kwxd=5683) TISSUE [id number] 14:20:00Surgical Pathology Report Case: [id number] Authorizing Provider: Carlos Seo MD Collected: 10/21/2017 0837 Ordering Location: [facility] Received: 10/21/2017 0931 PERIOPERATIVE SERVICES Pathologist: Gilbert Anderson MD Specimen: Carotid, Right, RIGHT CAROTID PLAQUE ARTERY, RIGHT CAROTID, ENDARTERECTOMY:CALCIFIC ATHEROSCLEROTIC PLAQUE Signing Pathologist Direct Phone Line: [phone] signed by Gilbert Anderson MD on 2017 at 2:20 [id number]; [id number] stenosisRight carotid plaqueIn saline labeled "carotid, right", description "right carotid plaque" is a 3.5 cm in length x 0.9 cm in diameter michel-white to yellow-ang cylindrical previously incised portion of fibrous tissue. Sectioning reveals focal calcification. [employer] sections are submitted in cassette A1 for decalcification. DB/ [id number] 05:30:00 Test Item Value Reference Range Comments MAGNESIUM (BEAKER) (test bwve=638) 1.7 mg/dL 1.6-2.6 [facility]Call [facility] resultsBASIC METABOLIC [id number] 05:30: 00 Test Item Value Reference Range Comments SODIUM (BEAKER) (test 138 meq/L 136-145 mzia=162) POTASSIUM (BEAKER) (test 3.7 meq/L 3.5-5.1 jnhb=046) CHLORIDE (BEAKER) (test 103 meq/L 98-107 zlko=054) CO2 (BEAKER) (test 28 meq/L 22-29 wytl=895) BLOOD UREA NITROGEN 11 mg/dL 7-21 (BEAKER) (test ckhy=312) CREATININE (BEAKER) (test 0.95 mg/dL 0.57-1.25 fdhe=419) GLUCOSE RANDOM (BEAKER) 89 mg/dL 70-105 (test inug=409) CALCIUM (BEAKER) (test 9.0 mg/dL 8.4-10.2 rhwi=104) EGFR (BEAKER) (test 58 mL/min/1.73 sq m ESTIMATED GFR IS NOT dulp=5171) ACCURATE CREATININE CLEARANCE IN PREDICTING GLOMERULAR FILTRATION RATE. ESTIMATED GFR IS NOT APPLICABLE FOR DIALYSIS PATIENTS. [facility]Call [facility] with resultsCBC W/PLT COUNT & AUTO [id number] 04:49:00 Test Item Value Reference Range Comments WHITE BLOOD CELL COUNT (BEAKER) (test esbo=913) 5.6 K/ L 3.5-10.5 RED BLOOD CELL COUNT (BEAKER) (test ubbm=159) 3.59 M/ L 3.93-5.22 HEMOGLOBIN (BEAKER) (test cooi=444) 10.1 GM/DL 11.2-15.7 HEMATOCRIT (BEAKER) (test dode=557) 32.8 % 34.1-44.9 MEAN CORPUSCULAR VOLUME (BEAKER) (test irwk=502) 91.4 fL 79.4-94.8 MEAN CORPUSCULAR HEMOGLOBIN (BEAKER) (test 28.1 pg 25.6-32.2 cada=277) MEAN CORPUSCULAR HEMOGLOBIN CONC (BEAKER) (test 30.8 GM/DL 32.2-35.5 tytd=864) RED CELL DISTRIBUTION WIDTH (BEAKER) (test 15.2 % 11.7-14.4 sdbx=751) PLATELET COUNT (BEAKER) (test bhck=022) 113 K/CU MM 150-450 MEAN PLATELET VOLUME (BEAKER) (test rdnz=433) 13.5 fL 9.4-12.3 NUCLEATED RED BLOOD CELLS (BEAKER) (test 0 /100 WBC 0-0 ghrz=068) NEUTROPHILS RELATIVE PERCENT (BEAKER) (test 63 % pywx=273) LYMPHOCYTES RELATIVE PERCENT (BEAKER) (test 23 % mjkt=623) MONOCYTES RELATIVE PERCENT (BEAKER) (test 9 % qecu=849) EOSINOPHILS RELATIVE PERCENT (BEAKER) (test 4 % lowa=799) BASOPHILS RELATIVE PERCENT (BEAKER) (test 1 % sffj=800) NEUTROPHILS ABSOLUTE COUNT (BEAKER) (test 3.50 K/ L 1.56-6.13 qymg=083) LYMPHOCYTES ABSOLUTE COUNT (BEAKER) (test 1.29 K/ L 1.18-3.74 ocqe=946) MONOCYTES ABSOLUTE COUNT (BEAKER) (test 0.52 K/ L 0.24-0.36 nyjr=275) EOSINOPHILS ABSOLUTE COUNT (BEAKER) (test 0.23 K/ L 0.04-0.36 iadl=550) BASOPHILS ABSOLUTE COUNT (BEAKER) (test 0.03 K/ L 0.01-0.08 idhg=337) IMMATURE GRANULOCYTES-RELATIVE PERCENT (BEAKER) 0 % 0-1 (test cjmo=1640) BASIC METABOLIC [id number] 05:38:00 Test Item Value Reference Range Comments SODIUM (BEAKER) (test 138 meq/L 136-145 hipv=583) POTASSIUM (BEAKER) (test 3.7 meq/L 3.5-5.1 meqp=505) CHLORIDE (BEAKER) (test 107 meq/L 98-107 zinj=901) CO2 (BEAKER) (test 25 meq/L 22-29 hsdi=016) BLOOD UREA NITROGEN 14 mg/dL 7-21 (BEAKER) (test yqhp=442) CREATININE (BEAKER) (test 0.76 mg/dL 0.57-1.25 vnqh=559) GLUCOSE RANDOM (BEAKER) 88 mg/dL 70-105 (test oain=282) CALCIUM (BEAKER) (test 8.5 mg/dL 8.4-10.2 bhoz=926) EGFR (BEAKER) (test 75 mL/min/1.73 sq m ESTIMATED GFR IS NOT jjtb=3371) ACCURATE CREATININE CLEARANCE IN PREDICTING GLOMERULAR FILTRATION RATE. ESTIMATED GFR IS NOT APPLICABLE FOR DIALYSIS PATIENTS. CBC W/PLT COUNT & AUTO [id number] 05:13:00 Test Item Value Reference Range Comments WHITE BLOOD CELL COUNT (BEAKER) (test yjoy=626) 3.8 K/ L 3.5-10.5 RED BLOOD CELL COUNT (BEAKER) (test ihnf=220) 3.40 M/ L 3.93-5.22 HEMOGLOBIN (BEAKER) (test bbgj=735) 9.6 GM/DL 11.2-15.7 HEMATOCRIT (BEAKER) (test uxox=878) 31.3 % 34.1-44.9 MEAN CORPUSCULAR VOLUME (BEAKER) (test frke=497) 92.1 fL 79.4-94.8 MEAN CORPUSCULAR HEMOGLOBIN (BEAKER) (test 28.2 pg 25.6-32.2 jixq=520) MEAN CORPUSCULAR HEMOGLOBIN CONC (BEAKER) (test 30.7 GM/DL 32.2-35.5 kljq=420) RED CELL DISTRIBUTION WIDTH (BEAKER) (test 15.4 % 11.7-14.4 ezmd=220) PLATELET COUNT (BEAKER) (test puwa=050) 91 K/CU MM 150-450 MEAN PLATELET VOLUME (BEAKER) (test sdvk=937) 13.6 fL 9.4-12.3 NUCLEATED RED BLOOD CELLS (BEAKER) (test 0 /100 WBC 0-0 fkrg=829) NEUTROPHILS RELATIVE PERCENT (BEAKER) (test 64 % wbuq=345) LYMPHOCYTES RELATIVE PERCENT (BEAKER) (test 23 % crle=625) MONOCYTES RELATIVE PERCENT (BEAKER) (test 8 % nhln=858) EOSINOPHILS RELATIVE PERCENT (BEAKER) (test 4 % dlmd=636) BASOPHILS RELATIVE PERCENT (BEAKER) (test 0 % cqiy=988) NEUTROPHILS ABSOLUTE COUNT (BEAKER) (test 2.45 K/ L 1.56-6.13 pvsb=748) LYMPHOCYTES ABSOLUTE COUNT (BEAKER) (test 0.89 K/ L 1.18-3.74 hkvc=698) MONOCYTES ABSOLUTE COUNT (BEAKER) (test izbs=288) 0.30 K/ L 0.24-0.36 EOSINOPHILS ABSOLUTE COUNT (BEAKER) (test 0.14 K/ L 0.04-0.36 zczg=594) BASOPHILS ABSOLUTE COUNT (BEAKER) (test epxn=220) 0.01 K/ L 0.01-0.08 IMMATURE GRANULOCYTES-RELATIVE PERCENT (BEAKER) 1 % 0-1 (test yjjd=1471) GLUCOSE-STAT [id number] 09:53:00 Test Item Value Reference Range Comments GLUCOSE RANDOM (BEAKER) (test bxih=035) 105 mg/dL 70-110 HGB/HCT (H&H) - STAT [id number] 09:53:00 Test Item Value Reference Range Comments HEMOGLOBIN (BEAKER) (test rite=148) 11.2 g/dL 12.0-15.0 HEMATOCRIT (BEAKER) (test yhuh=548) 33.0 % 36.0-45.0 BASIC METABOLIC [id number] 07:45:00 Test Item Value Reference Range Comments SODIUM (BEAKER) (test 136 meq/L 136-145 uirb=091) POTASSIUM (BEAKER) (test 3.5 meq/L 3.5-5.1 ouce=832) CHLORIDE (BEAKER) (test 107 meq/L 98-107 fxpy=347) CO2 (BEAKER) (test 21 meq/L 22-29 rkdb=732) BLOOD UREA NITROGEN 17 mg/dL 7-21 (BEAKER) (test xcyy=991) CREATININE (BEAKER) (test 0.78 mg/dL 0.57-1.25 uwik=439) GLUCOSE RANDOM (BEAKER) 93 mg/dL 70-105 (test crsl=387) CALCIUM (BEAKER) (test 9.6 mg/dL 8.4-10.2 ytjm=606) EGFR (BEAKER) (test 73 mL/min/1.73 sq m ESTIMATED GFR IS NOT lkib=3317) ACCURATE CREATININE CLEARANCE IN PREDICTING GLOMERULAR FILTRATION RATE. ESTIMATED GFR IS NOT APPLICABLE FOR DIALYSIS PATIENTS. RAD, CHEST, 1 VIEW, NON [id number] 07:29:00Reason for exam:-> baselineReason for exam:->pre opShould [...] [place] Verified Date/Time: 10/21/2017 07:29:40 Reading Location: [facility] Radiology Reading Room PROTHROMBIN [id number] 07:23:00 Test Item Value Reference Range Comments PROTIME (BEAKER) (test uzdg=974) 13.5 seconds 11.7-14.7 INR (BEAKER) (test oiel=298) 1.0 <=5.9 RECOMMENDED COUMADIN/WARFARIN INR THERAPY RANGESSTANDARD DOSE: 2.0 - 3.0 Includes: PROPHYLAXIS forvenous thrombosis, systemic embolization; TREATMENT for venous thrombosis and/or pulmonary embolus.HIGH RISK: Target INR is 2.5-3.5 for patients with mechanical heart valves.CBC W/PLT COUNT & AUTO [id number] 10:12:00 Test Item Value Reference Range Comments WHITE BLOOD CELL COUNT (BEAKER) (test xomk=432) 5.4 K/ L 3.5-10.5 RED BLOOD CELL COUNT (BEAKER) (test wlqy=856) 4.39 M/ L 3.93-5.22 HEMOGLOBIN (BEAKER) (test lhtv=877) 12.2 GM/DL 11.2-15.7 HEMATOCRIT (BEAKER) (test zbug=739) 39.1 % 34.1-44.9 MEAN CORPUSCULAR VOLUME (BEAKER) (test sdrc=667) 89.1 fL 79.4-94.8 MEAN CORPUSCULAR HEMOGLOBIN (BEAKER) (test 27.8 pg 25.6-32.2 djbj=077) MEAN CORPUSCULAR HEMOGLOBIN CONC (BEAKER) (test 31.2 GM/DL 32.2-35.5 apdh=693) RED CELL DISTRIBUTION WIDTH (BEAKER) (test 14.7 % 11.7-14.4 fjtj=275) PLATELET COUNT (BEAKER) (test aglb=184) 151 K/CU MM 150-450 MEAN PLATELET VOLUME (BEAKER) (test yhyf=388) 13.0 fL 9.4-12.3 NUCLEATED RED BLOOD CELLS (BEAKER) (test 0 /100 WBC 0-0 adzk=426) NEUTROPHILS RELATIVE PERCENT (BEAKER) (test 72 % msdi=774) LYMPHOCYTES RELATIVE PERCENT (BEAKER) (test 18 % zznn=403) MONOCYTES RELATIVE PERCENT (BEAKER) (test 7 % hcox=354) EOSINOPHILS RELATIVE PERCENT (BEAKER) (test 2 % kqbl=801) BASOPHILS RELATIVE PERCENT (BEAKER) (test 1 % otdc=298) NEUTROPHILS ABSOLUTE COUNT (BEAKER) (test 3.89 K/ L 1.56-6.13 oqrk=450) LYMPHOCYTES ABSOLUTE COUNT (BEAKER) (test 0.99 K/ L 1.18-3.74 qvdt=607) MONOCYTES ABSOLUTE COUNT (BEAKER) (test 0.37 K/ L 0.24-0.36 cyho=818) EOSINOPHILS ABSOLUTE COUNT (BEAKER) (test 0.08 K/ L 0.04-0.36 nvmx=376) BASOPHILS ABSOLUTE COUNT (BEAKER) (test 0.03 K/ L 0.01-0.08 tvvp=537) IMMATURE GRANULOCYTES-RELATIVE PERCENT (BEAKER) 1 % 0-1 (test dxhs=3983)
--- OUTSIDE RECORDS SUMMARY | 2018-10-25 07:23 | XMS REPORT ---
:1945 Author Organization [employer] Care Team Providers Name Role Phone Pinto, Na Provider Role Unavailable Allergies, Adverse Reactions, Alerts Substance Reaction Event Type MORPHINE Info Not Available Drug Allergy Phenergan Info Not Available Drug Allergy Problems Problem Type Condition Code Onset Dates Condition Status Assessment Unsteady gait R26.81 Active Assessment Influenza vaccination administered Z23 Active at current visit Problem Benign essential HTN I10 Active Assessment Screening for osteoporosis Z13.820 Active Problem Allergic rhinitis J30.9 Active Assessment Cerebrovascular accident (CVA) with I63.9 Active involvement of left side of body Problem Hyperlipidemia E78.5 Active Problem Migraine without status G43.909 Active migrainosus, not intractable, unspecified migraine type Problem Tinnitus of right ear H93.11 Active Problem Medication monitoring encounter Z51.81 Active Problem History of stroke associated with Z86.73 Active blood clotting tendency Assessment Benign essential HTN I10 Active Assessment Hyperlipidemia E78.5 Active Problem Unsteady gait R26.81 Active Assessment History of stroke associated with Z86.73 Active blood clotting tendency Problem Varicose veins I86.8 Active Problem Osteoarthritis of multiple joints M15.9 Active Problem Depression with anxiety F41.8 Active Problem 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 Assessment Plantar fasciitis of left foot M72.2 Active Assessment Atrial fibrillation I48.91 Active Assessment 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 Assessment Pain of left heel M79.672 Active Problem Osteoporosis M81.0 Active Problem Vitamin D deficiency E55.9 Active Problem Atrial fibrillation I48.91 Active Medications Medication Code Code Instructions Start End Status Dosage System Date Date Folic Acid [facility] [address]-72 Active not defined Amiodarone ND 0 Active not defined Plavix [facility] 72173192635 75 MG Orally Active 1 tablet Once a day Nitroglycerin [facility] 00788923971 0.4 MG Active not Sublingual defined Apixaban [facility] [address]-72 Active not defined Lasix [facility] 74681192201 40 MG Orally Active 1 tablet Once a day Tramadol HCl [facility] 55293320534 50 MG Orally Active 1 tablet every 6 hrs as needed Lipitor [facility] 12920258293 40 MG Orally Active 1 tablet Once a day Results No Known Results Immunizations Vaccine Administration Date FluAD Jun 22, 2018 Summary Purpose eClinicalWorks Submission
[2018-10-25] MEDS ORDERED: NA CHLORIDE 0.9% 500 ML ONE ×2 (07:30→08:54)
[2018-10-25] MEDS ORDERED: MIDAZOLAM HCL 2 MG/2 ML INJ ONE ×2 (07:55→08:03)
[2018-10-25] MEDS ORDERED: FENTANYL CITR 100 MCG/2 ML ONE ×2 (07:56→10:08)
[2018-10-25] MEDS ORDERED: ATROPINE SULF 1 MG/10 ML SYR IV ONE (07:56)
[2018-10-25] MEDS ORDERED: HEPARIN 5000 UNIT/ML 1 ML VIAL ONE (08:06)
[2018-10-25] MEDS ORDERED: NA CHLORIDE 0.9% 0 ML ONE (08:14)
[2018-10-25] MEDS ORDERED: FLUMAZENIL 0.1 MG/ML (5 mL VIAL) IV ONE (08:23)
[2018-10-25] MEDS ORDERED: HEPA 1000U/500MLS 2,000 UNIT/1,000 ML BAG IV ONE (09:04)
[2018-10-25 11:55] VITALS: TEMP 97.6
[2018-10-25 13:08] VITALS: BP 98/49; O2SAT 97
--- NOTE | 2018-10-25 19:37 | OP ---
Surgeon: Umesh Ulloa MD A 73-year-old woman. Procedures: Carotid angiography and coronary angiography. 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 Procedure Findings: There is a 70% stenosis in the left carotid bulb. The right carotid has had pre vious carotid endarterectomy. It does not appear to be significantly stenotic or abnormal. The righ t external carotid has more significant disease but it is not clinically significant. The right yoshi nary artery is patent. There is a stent in it that has no stenosis. The left coronary is free of an y significant disease. No LV gram was done. Procedure In Detail: The patient was brought to the [facility] in a fasting state, sedated wit h Versed, fentanyl, prepared and draped in usual sterile fashion. Right femoral approach used. Righ t femoral artery entered with an 18-gauge needle, cannulated with a short J-wire and then a 4-Georgian sheath was put in place, flushed, 2500 units of heparin were given. JR4 catheter was used to angiogr am right and left carotids, the left in 2 views, then we angiogram the [place] right coronary artery a nd the [place] left coronary artery using a JL4. At the end of the procedure, there was hypotension, treated with fluid bolus, reversal of Versed with Romazicon and then the sheath shot was done to see if we could close with Angio-Seal. Adequate anatomy was seen. Angio-Seal will be used. KENYA/MILY Voice ID: [id number] Report ID: [id number]
== END 2018-10-25 12:40 | disposition home or self-care (01) ==
LOC: CCL 07:07
PROVIDERS: ATTEND Internal Medicine
DX: I65.23 Occlusion and stenosis of bilateral carotid arteries (principal); I25.119 Atherosclerotic heart disease of native coronary artery with unspecified angina pectoris; I10 Essential (primary) hypertension; I48.0 Paroxysmal atrial fibrillation; R06.02 Shortness of breath; E78.2 Mixed hyperlipidemia; Z95.5 Presence of coronary angioplasty implant and graft; Z87.891 Personal history of nicotine dependence; Z88.0 Allergy status to penicillin; Z88.6 Allergy status to analgesic agent; Z88.8 Allergy status to other drugs, medicaments and biological substances
CPT/HCPCS: 85025; 80048; 36415; 85610; 85730; 71046; 93454; 36222; C1893; C1760; J1644; J2250 ×2; J3010 ×2; J0583

== ENCOUNTER 2019-01-26 13:13 | Inpatient (IN) | payer OTHER ==
--- OUTSIDE RECORDS SUMMARY | 2019-01-26 13:17 | XMS REPORT | Clinical Summary ---
:1945 Author Organization [facility] Address [address] [place] [address] Care Team Providers Name Role Phone Kasey Pinto DO Primary Care Provider Sharpless Unavailable Devin Delgadillo Unavailable Allergies Active Allergy Reactions Severity Noted [...] (LIPITOR) 40 MG mouth daily . tablet aspirin 81 MG EC Take 81 mg by 0 Active tablet mouth daily. furosemide (LASIX) Take 20 mg by 0 Active 20 MG tablet mouth 2 (two) times daily. potassium chloride Take 20 mEq by 0 Active (KLOR-CON) 20 mEq mouth daily. packet folic acid Take 1 tablet (1 90 tablet 0 02/14/2018 Active (FOLVITE) 1 MG mg total) by 9 tablet mouth daily. apixaban (ELIQUIS) Take 1 tablet (5 60 tablet 3 02/13/2018 Active 5 mg Tab tablet mg total) by mouth 2 (two) times daily. COMBIVENT RESPIMAT INL 2 PFS PO 2 3 10/08/2018 Active 20-100 TO 3 TIMES QD mcg/actuation Mist PRN inhaler irbesartan (AVAPRO) Take 150 mg by 0 Active 150 MG tablet mouth nightly. nitroglycerin Place 0.4 mg 0 Active (NITROSTAT) 0.4 MG under the tongue SL tablet every 5 (five) minutes as needed for Chest pain Put 1 pill under tongue every 5min as needed for chest pain.No more than 3 doses in 15min.Call 911 if pain is unrelieved 5min after 1st dose . famotidine (PEPCID) Take 1 tablet 30 tablet 0 10/30/2018 Active 20 MG tablet (20 mg total) by mouth daily. traMADol (ULTRAM) Take 50 mg by 0 11/12/2018 Active 50 mg tablet mouth every 8 (eight) hours as needed. enalapril (VASOTEC) Take 5 mg by 0 Discontinued 5 MG tablet mouth daily. 9 furosemide (LASIX) Take 40 mg by 0 Discontinued 40 MG tablet mouth daily. 9 dronedarone Take 400 mg by 0 Discontinued (MULTAQ) 400 mg mouth 2 (two) 9 tablet times daily with breakfast and dinner. rivaroxaban Take 1 tablet 0 10/30/2017 Discontinued (XARELTO) 20 mg Tab (20 mg total) by 9 tablet mouth daily with dinner Hold since 10/18/2017 . atorvastatin Take 40 mg by 0 Discontinued (LIPITOR) 40 MG mouth nightly . 9 tablet rivaroxaban Take 20 mg by 0 Discontinued (XARELTO) 20 mg Tab mouth daily. 8 tablet enalapril (VASOTEC) Take 5 mg by 0 Discontinued 5 MG tablet mouth daily. 8 dronedarone Take 400 mg by 0 Discontinued (MULTAQ) 400 mg mouth 2 (two) 8 tablet times daily with breakfast and dinner. aspirin 81 MG EC Take 81 mg by 0 Discontinued tablet mouth daily. 9 amiodarone Take 1 tablet 60 tablet 1 02/13/2018 Discontinued (PACERONE) 400 MG (400 mg total) 8 tablet by mouth 2 (two) times daily. amiodarone Take 1 tablet 60 tablet 1 02/13/2018 Discontinued (PACERONE) 200 MG (200 mg total) 9 tablet by mouth 2 (two) times daily. traMADol (ULTRAM) Take 50 mg by 0 Discontinued 50 mg tablet mouth every 6 9 (six) hours as needed. traMADol (ULTRAM) Take 1 tablet 20 tablet 0 10/29/2018 50 mg tablet (50 mg total) by 9 mouth every 8 (eight) hours as needed for Pain for up to 10 days. Max Daily Amount: 150 mg acetaminophen Take 2 tablets 0 10/29/2018 (TYLENOL) 325 MG (650 mg total) 9 tablet by mouth every 6 (six) hours as needed for Pain for up to 10 days. Active Problems Problem Noted Date Anemia 10/28/2018 Carotid stenosis, left 10/27/2018 Carotid artery stenosis 10/27/2018 Acute embolic stroke 02/08/2018 Weakness 02/07/2018 Carotid stenosis s/p carotid endarterectomy 02/07/2018 Essential hypertension 10/22/2017 Right carotid artery occlusion 10/21/2017 Carotid artery occlusion Coronary artery disease TIA (transient ischemic attack) Atrial fibrillation Hyperlipidemia Hypertension Coronary artery disease CHF (congestive heart failure) Atrial fibrillation Stroke S/P carotid endarterectomy Overview: right Encounters Date Type Specialty Care Team Description 11/15/2018 Office Visit Cardiology Rick Flynn Postoperative state MD Omega (Primary Dx) 10/27/2018 Surgery Rick Flynn ENDARTERECTOMY,TEREZA Duff MD ID 10/27/2018 Anesthesia Event Angus Montanez, AA 10/27/2018 [facility] Rick Flynn Carotid stenosis, - Encounter MD Omega left (Primary Dx) 10/29/2018 10/27/2018 Travel 10/26/2018 [facility] Rick Flynn Encounter MD Omega 10/26/2018 Office Visit Cardiology Rick Flynn Cerebrovascular accident (CVA), unspecified mechanism (HCC); MD Omega S/P carotid endarterectomy 02/13/2018 Anesthesia Event Gastroenterology Dm Trimble MD 02/13/2018 Surgery Gastroenterology Ted Uribe MD 02/11/2018 Anesthesia Event Gastroenterology Nicci Pablo MD 02/07/2018 [facility] Cardiology Brann, Transient cerebral ischemia, unspecified type; - Encounter Carlos Chronic atrial fibrillation (HCC); 02/13/2018 MD Umesh Essential hypertension; Magdalena Byers MD Ataxia; Yovani Norris Stenosis of right carotid artery; MD Jose Acute embolic stroke (HCC); Paroxysmal atrial fibrillation (HCC) 02/07/2018 Orders Only General Internal Medicine after 01/25/2018 Family History Medical History Relation Name Comments Cancer Father Cancer Mother Relation Name Status Comments Father Mother Social History Tobacco Use Types Packs/Day Years Used Date Former Smoker 1 30 Quit: 02/08/2012 Smokeless Tobacco: Never Used Alcohol Use Drinks/Week oz/Week Comments No Sex Assigned at Date Recorded Not on file Job Start Date Occupation Industry Not on file Not on file Not on file Travel History Travel Start Travel End No recent travel history available. Last Filed Vital Signs Vital Sign Reading Time Taken Blood Pressure 134/64 11/15/2018 10:55 AM CDT Pulse 76 11/15/2018 10:55 AM CDT Temperature 36.4 C (97.6 F) 11/15/2018 10:55 AM CDT Respiratory Rate 18 11/15/2018 10:55 AM CDT Oxygen Saturation 96% 11/15/2018 10:55 AM CDT Inhaled Oxygen Concentration - - Weight 80.9 kg (178 lb 6.4 oz) 11/15/2018 10:55 AM CDT Height 157.5 cm (5' 2") 11/15/2018 10:55 AM CDT Body Mass Index 32.63 11/15/2018 10:55 AM CDT Plan of Treatment Not on file Implants Implanted Type Area Bobbin Stripper Device Shelf Model / Identifier Expiration Serial / Lot Date Grft Hemshld Dbl Ovidio 0.3x3.0in [id number] - [id number] Graft/Pa Right: GETINGE 03/02/2022 [id number] / Implanted: Qty: 1 on 10/21/2017 by Max Seo MD [facility] [place] IND:CRISTINAT: CV [id number] / [id number] Procedures Procedure Name Priority Date/Time Associated Comments Diagnosis RHYTHM STRIP - SCAN 11/05/2018 8:20 AM CDT REPORT OF PROCEDURE - 11/01/2018 1:52 ENDOSCOPY SCAN PM CDT RHYTHM STRIP - SCAN 11/01/2018 1:52 PM CDT TRANSFUSION SERVICE 10/30/2018 6:00 REPORT - SCAN PM CDT PREPARE LEUKO-REDUCED Routine 10/29/2018 11:54 Results for this RBC PM CDT procedure are in the results section. TRANSFUSION SERVICE 10/29/2018 6:00 REPORT - SCAN PM CDT CBC W/PLT COUNT & Routine 10/29/2018 4:31 Results for this AUTO DIFFERENTIAL AM CDT procedure are in the results section. MAGNESIUM Routine 10/29/2018 4:31 Results for this AM CDT procedure are in the results section. BASIC METABOLIC PANEL Routine 10/29/2018 4:31 Results for this (7) AM CDT procedure are in the results section. CBC W/PLT COUNT & Routine 10/29/2018 4:31 Results for this AUTO DIFFERENTIAL AM CDT procedure are in the results section. TRANSFUSION SERVICE 10/28/2018 6:01 REPORT - SCAN PM CDT HEMOGLOBIN AND Routine 10/28/2018 2:30 Results for this HEMATOCRIT PM CDT procedure are in the results section. HEMOGLOBIN AND Routine 10/28/2018 8:30 Results for this HEMATOCRIT AM CDT procedure are in the results section. BASIC METABOLIC PANEL Routine 10/28/2018 8:30 Results for this (7) AM CDT procedure are in the results section. TRANSFUSE Routine 10/28/2018 5:58 LEUKO-REDUCED RED AM CDT BLOOD CELLS HEMOGLOBIN AND STAT 10/28/2018 2:07 Results for this HEMATOCRIT AM CDT procedure are in the results section. MAGNESIUM Routine 10/28/2018 12:28 Results for this AM CDT procedure are in the results section. BASIC METABOLIC PANEL Routine 10/28/2018 12:28 Results for this (7) AM CDT procedure are in the results section. CBC (HEMOGRAM ONLY) Routine 10/28/2018 12:28 Results for this AM CDT procedure are in the results section. TRANSFUSION SERVICE 10/27/2018 5:54 REPORT - SCAN PM CDT HGB/HCT (H&H) - STAT STAT 10/27/2018 11:45 Results for this LAB AM CDT procedure are in the results section. POTASSIUM-STAT LAB STAT 10/27/2018 11:45 Results for this AM CDT procedure are in the results section. GLUCOSE-STAT LAB STAT 10/27/2018 11:45 Results for this AM CDT procedure are in the results section. TISSUE EXAM AP Routine 10/27/2018 9:55 Results for this AM CDT procedure are in the results section. HGB/HCT (H&H) - STAT STAT 10/27/2018 8:58 Results for this LAB AM CDT procedure are in the results section. GLUCOSE-STAT LAB STAT 10/27/2018 8:58 Results for this AM CDT procedure are in the results section. POTASSIUM-STAT LAB STAT 10/27/2018 8:58 Results for this AM CDT procedure are in the results section. SODIUM NA-STAT LAB STAT 10/27/2018 8:58 Results for this AM CDT procedure are in the results section. BLOOD GAS, ARTERIAL STAT 10/27/2018 8:58 Results for this AM CDT procedure are in the results section. CALCIUM, IONIZED STAT 10/27/2018 8:58 Results for this AM CDT procedure are in the results section. RRL CRITICAL LABS STAT 10/27/2018 8:58 Results for this (ABG,NA,K,H&H,GLUCOSE AM CDT procedure are in ) the results section. ENDARTERECTOMY,CAROTI 10/27/2018 7:30 Left carotid D AM CDT stenosis Case Notes (REQ 0730) Special Needs (REQ 0730) ABORH, MANUAL STAT 10/27/2018 6:48 Results for AM CDT this procedure are in the results section. PLATELET AGGREGATION: Routine 10/27/2018 6:48 Results for FUNCTION SCREEN AM CDT this procedure are in the results section. POCT-GLUCOSE METER Routine 10/27/2018 6:31 Results for AM CDT this procedure are in the results section. XR CHEST 2 VIEWS Routine 10/26/2018 12:46 Results for PM CDT this procedure are in the results section. CBC W/PLT COUNT & AUTO Routine 10/26/2018 12:16 Results for DIFFERENTIAL PM CDT this procedure are in the results section. ABORH, MANUAL Routine 10/26/2018 12:16 Results for PM CDT this procedure are in the results section. TYPE AND SCREEN, Routine 10/26/2018 12:16 Results for AUTOMATED PM CDT this procedure are in the results section. CBC W/PLT COUNT & AUTO Routine 10/26/2018 12:16 Results for DIFFERENTIAL PM CDT this procedure are in the results section. BASIC METABOLIC PANEL Routine 10/26/2018 12:16 Results for (7) PM CDT this procedure are in the results section. LIPID PANEL Routine 10/26/2018 12:16 Results for PM CDT this procedure are in the results section. PROTHROMBIN TIME/INR Routine 10/26/2018 12:16 Results for PM CDT this procedure are in the results section. REPORT OF PROCEDURE - 07/12/2018 1:08 ENDOSCOPY URL PM FELLED SEAM OPERATOR CHAINSTITCH REPORT OF PROCEDURE - 02/16/2018 8:40 ENDOSCOPY [...] 226 ms QTC Calculation(Bazett) 254 ms P [place] 43 degrees R [place] -11 degrees T [place] -85 degrees Sinus rhythm with Premature atrial [...] procedure are in the results section. after 01/25/2018 Results RHYTHM STRIP - SCAN (11/05/2018 8:20 AM CDT)Only the most recent of4 resultswithin the time period is included. Narrative Performed At EKG-SCANNED (11/01/2018 1:52 PM CDT)Only the most recent of3 resultswithin the time period is included. Narrative Performed At TRANSFUSION SERVICE REPORT - SCAN (10/30/2018 6:00 PM CDT)Only the most recent of5 resultswithin the time period is included. Narrative Performed At Prepare Leuko-Red RBC (10/29/2018 11:54 PM CDT) CROSSMATCH COMPATIBLE [facility] [place] Unit ABO A Pos [facility] [place] UNIT NUMBER [id number] [facility] [place] Status TX_TIMEINCHART [facility] [place] Blood Bank Product RED BLOOD CELLS [facility] [place] PRODUCT CODE [id number] [facility] [place] Specimen Other Performing Organization Address City/State/Zipcode Phone Number [facility] [place] CBC with platelet count + automated diff (10/29/2018 4:31 AM CDT)Only the most recent of9 resultswithin the time period is included. WBC 4.6 3.5 - 10.5 K/L [facility] RBC 3.30 (L) 3.93 - 5.22 M/L [facility] Hemoglobin 7.4 (L) 11.2 - 15.7 GM/DL [facility] Hematocrit 25.6 (L) 34.1 - 44.9 % [facility] MCV 77.6 (L) 79.4 - 94.[address] [facility] MCH 22.4 (L) 25.6 - 32.[address] [facility] MCHC 28.9 (L) 32.2 - 35.5 GM/DL [facility] RDW 18.2 (H) 11.7 - 14.4 % [facility] Platelets 149 (L) 150 - 450 K/CU MM [facility] MPV 12.9 (H) 9.4 - 12.[address] [facility] nRBC 0 0 - 0 /[address] [facility] % Neutros 58 % [facility] % Lymphs 25 % [facility] % Monos 12 % [facility] % Eos 5 % [facility] % Baso 0 % [facility] # Neutros 2.66 1.56 - 6.13 K/L [facility] # Lymphs 1.12 (L) 1.18 - 3.74 K/L [facility] # Monos 0.54 (H) 0.24 - 0.36 K/L [facility] # Eos 0.21 0.04 - 0.36 K/L [facility] # Baso 0.02 0.01 - 0.08 K/L [facility] Immature Granulocytes-Relative 0 0 - 1 % [facility] Specimen Blood Performing Organization Address City/State/Zipcode Phone Number [facility] [address] [place] [address] [phone] CENTER Magnesium (10/29/2018 4:31 AM CDT)Only the most recent of8 resultswithin the time period is included. Magnesium 1.9 1.6 - 2.6 mg/dL [facility] Specimen Blood Performing Organization Address City/[facility] Cent[facility]ode Phone Number [facility] [address] [place] [address] [phone] [facility] Basic Metabolic Panel (10/29/2018 4:31 AM CDT)Only the most recent of11 resultswithin the time period is included. Sodium 135 (L) 136 - 145 meq/L [facility] Potassium 3.3 (L) 3.5 - 5.1 meq/L [facility] Chloride 103 98 - 107 meq/L [facility] CO2 23 22 - 29 meq/L [facility] BUN 9 7 - 21 mg/dL [facility] Creatinine 0.84 0.57 - 1.25 mg/dL [facility] Glucose 87 70 - 105 mg/dL [facility] Calcium 8.2 (L) 8.4 - 10.2 mg/dL [facility] EGFR 67Comment: ESTIMATED GFR IS mL/min/1.73 sq m [facility] NOT ACCURATE [facility] CLEARANCE IN PREDICTING GLOMERULAR FILTRATION RATE. ESTIMATED GFR IS NOT APPLICABLE FOR DIALYSIS PATIENTS. Specimen Blood Performing Organization Address City/[facility]/Zipcode Phone Number [facility] [address] [place] [address] [facility] Hemoglobin and hematocrit (10/28/2018 2:30 PM CDT)Only the most recent of3 resultswithin the time period is included. Hemoglobin 7.4 (L) 11.2 - 15.7 GM/DL [facility] Hematocrit 25.9 (L) 34.1 - 44.9 % [facility] Specimen Blood Performing Organization Address City/[facility]/Zipcode Phone Number [facility] [address] [place] [address] CENTER Transfuse Leuko-Red RBC (10/28/2018 5:58 AM CDT)Only the most recent of2 resultswithin the time period is included.CBC (Hemogram only) (10/28/2018 12:28 AM CDT) WBC 5.1 3.5 - 10.5 K/L [facility] RBC 3.12 (L) 3.93 - 5.22 M/L [facility] Hemoglobin 6.5 (L) 11.2 - 15.7 GM/DL [facility] Hematocrit 24.0 (L) 34.1 - 44.9 % [facility] MCV 76.9 (L) 79.4 - 94.[address] [facility] MCH 20.8 (L) 25.6 - 32.[address] [facility] MCHC 27.1 (L) 32.2 - 35.5 GM/DL [facility] RDW 18.8 (H) 11.7 - 14.4 % [facility] Platelets 177 150 - 450 K/CU MM [facility] MPV 12.8 (H) 9.4 - 12.[address] [facility] nRBC 0 0 - 0 /[address] [facility] Specimen Blood Performing Organization Address City/[facility] Centercode Phone Number [facility] [address] [place] [address] CENTER Potassium-Stat Lab (10/27/2018 11:45 AM CDT)Only the most recent of2 resultswithin the time period is included. Potassium 3.8 3.6 - 5.5 meq/L [facility] Specimen Blood, Arterial Performing Organization Address City/State/Zipcode Phone Number [facility] [address] [place] [address] [phone] [facility] Glucose-Stat Lab (10/27/2018 11:45 AM CDT)Only the most recent of2 resultswithin the time period is included. Glucose 96 70 - 110 mg/dL [facility] Specimen Blood, Arterial Performing Organization Address City/[facility]/Zipcode Phone Number [address] [address] [facility] HGB/HCT (H&H)-Stat Lab (10/27/2018 11:45 AM CDT)Only the most recent of2 resultswithin the time period is included. Hemoglobin 7.6 (L) 12.0 - 15.0 g/dL [facility] Hematocrit 22.0 (L) 36.0 - 45.0 % [facility] Specimen Blood, Arterial Performing Organization Address City/[facility] Centercode Phone Number [address] [phone] [facility] Tissue Exam (10/27/2018 9:55 AM CDT) Case Report Surgical Pathology Report Case: [id number] Authorizing Provider:Rick Flynn, Collected: 10/27/2018 0955 [facility] Ordering Location: [facility] Received: 10/27/2018 1010 [employer] Pathologist: Gilbert Anderson MD Specimen:Plaque, LEFT CAROTID PLAQUE DIAGNOSIS ARTERY, LEFT CAROTID, ENDARTERECTOMY: CALCIFIC ATHEROSCLEROTIC PLAQUE [facility] Signing Pathologist Direct Phone Line: [phone] CPT Code(s) 13217; [address] [facility] CLINICAL HISTORY Left carotid stenosis [facility] SPECIMEN SOURCE Left carotid plaque [facility] GROSS DESCRIPTION The specimen is received in a formalin-filled container and [facility] labeled with the patient's information and labeled "left carotid plaque" and consists of a calcified tubular shaped segment of tissue measuring 1.5 cm in length x 0.6 cm in diameter. Hydroblaster sections are submitted A1 for decal. CG/pl MICROSCOPIC DESCRIPTION Performed [facility] Specimen Tissue Performing Organization Address City/State/Zipcode Phone Number [facility] [address] [place] [phone] [facility] Sodium Na-Stat Lab (10/27/2018 8:58 AM CDT) Sodium 138 135 - 148 meq/L [facility] Specimen Blood, Arterial Performing Organization Address City/State/Zipcode Phone Number [address] [address] [phone] [facility] Calcium, Ionized (10/27/2018 8:58 AM CDT) Calcium, Ion 1.04 (L) 1.12 - 1.27 mmol/L [facility] pH, Blood 7.30 [facility] Specimen Blood Performing Organization Address City/[facility] Centercode Phone Number [address] [address] [facility] Blood gas, arterial (10/27/2018 8:58 AM CDT) pH, Arterial 7.32 (L) 7.35 - 7.45 [facility] pCO2, Arterial 46 (H) 35 - [address] [facility] pO2, Arterial 274 (H) 80 - [address] [facility] O2 Sat, Arterial 99.6 (H) 96.0 - 97.0 % [facility] HCO3, Arterial 23 21 - 29 mmol/L [facility] Base Excess, Arterial -3.2 (L) -2.0 - 3.0 mmol/L [facility] Patient Temperature 36.[address] [facility] FIO2 100.0 % [facility] Specimen Blood, Arterial Performing Organization Address [facility] Centercode Phone Number [address] [phone] [facility] Platelet Aggregation: Function Screen (10/27/2018 6:48 AM CDT) Weak ADP 98 (H) 60 - 91 % [facility] Plt. Function Screen 60-100% indicates Interpretation normal platelet [facility] function Pathologist: Ema Londono MD (electronic [facility] signature) Platelets 171 150 - 450 K/CU MM [facility] Specimen Blood Narrative Performed At Platelet Function Screen results may be [facility] falsely low with platelet counts <100,000/cu mm. for patients on clopidogrel in past two weeks for patients on clopidogrel in past two weeks for patients on clopidogrel in past two weeks Performing Organization Address [facility] Centercosd Phone Number [address] [address] CENTER ABORH, manual (10/27/2018 6:48 AM CDT)Only the most recent of2 resultswithin the time period is included. ABO Grouping A [facility] Rh Factor POS [facility] Specimen Blood Performing Organization Address [facility] Centercode Phone Number [address] [address] POC-Glucose meter (10/27/2018 6:31 AM CDT) POC-Glucose Meter 110Comment: TESTED AT 70 - 110 mg/dL [facility] [address] [place] [id number] Specimen Blood Performing Organization Address [facility] Centercode Phone Number [address] [address] [phone] [facility] XR chest 2 views (10/26/2018 12:46 PM CDT) Specimen Narrative Performed At FINAL REPORT GE RIS Chest x-ray, PA and lateral views Clinical History: pre op screen Comparison:October 21, 2017 Findings: Cardiac silhouette is mildly enlarged. Aorta is tortuous/ectatic. No consolidation, vascular congestion, pneumothorax, or pleural effusion. Osseous structures demonstrate degenerative changes and decreased bony mineralization. Several compression deformities are seen in the thoracic spine, age indeterminate. Status post left shoulder arthroplasty. Impression: Mildly enlarged cardiac silhouette. Age-indeterminate compression deformities in thoracic spine. Signed: Bk Maurice MD Report Verified Date/Time:10/26/2018 13:20:52 Reading Location: [address] Consult Reading Room Procedure Note Interface, External Ris In - 10/26/2018 1:22 PM CDT FINAL REPORT Chest x-ray, PA and lateral views Clinical History: pre op screen Comparison: October 21, 2017 Findings: Cardiac silhouette is mildly enlarged. Aorta is tortuous/ectatic. No consolidation, vascular congestion, pneumothorax, or pleural effusion. Osseous structures demonstrate degenerative changes and decreased bony mineralization. Several compression deformities are seen in the thoracic spine, age indeterminate. Status post left shoulder arthroplasty. Impression: Mildly enlarged cardiac silhouette. Age-indeterminate compression deformities in thoracic spine. Signed: Bk Maurice MD Report Verified Date/Time: 10/26/2018 13:20:52 Reading Location: [facility] C0[facility] Consult Reading Room Performing Organization Address City/State/Zipcode Phone Number RIS Type and screen, automated (10/26/2018 12:16 PM CDT) Ab Scrn NEGATIVE [facility] Specimen Blood Performing Organization Address City/[facility]/Zipcode Phone Number [facility] [address] [place] [address] Prothrombin time/INR (10/26/2018 12:16 PM CDT) Protime 13.1 11.7 - 14.[address] [facility] INR 1.0 <=5.9 [facility] Specimen Blood Narrative Performed At RECOMMENDED COUMADIN/WARFARIN INR THERAPY [facility] RANGES STANDARD DOSE: 2.0 - 3.0 Includes: PROPHYLAXIS for venous thrombosis, systemic embolization; TREATMENT for venous thrombosis and/or pulmonary embolus. HIGH RISK: Target INR is 2.5-3.5 for patients with mechanical heart valves. Performing Organization Address [facility] Phone Number [address] [address] [facility] Lipid panel (10/26/2018 12:16 PM CDT)Only the most recent of3 resultswithin the time period is included. Triglycerides 110 mg/dL [facility] Cholesterol 203 mg/dL [facility] HDL 74 mg/dL [facility] LDL Calculated 107 mg/dL [facility] Specimen Blood Narrative Performed At Triglyceride Reference Range: [facility] Low Risk <150 Emmamtnvor729-142 High Risk 200-499 Very High Risk>=500 Cholesterol Reference Range: Low Risk <200 Ushvlgqsra473-038 High Risk>240 HDL Cholesterol Reference Range: Low Risk >=60 High Risk <40 LDL Cholesterol Reference Range: Optimal<100 Near Ygvflpn613-485 Ajzbmmsdfp510-987 Rrep757-306 Very High >=190 Performing Organization Address [facility] Phone Number [address] [address] [phone] [facility] REPORT OF PROCEDURE - ENDOSCOPY URL (07/12/2018 1:08 PM FELLED SEAM OPERATOR CHAINSTITCH) Narrative Performed At ECHOCARDIOGRAM REPORT - SCAN (02/12/2018 8:20 AM CDT) Narrative Performed At Iron, TIBC, % sat. (without ferritin) (02/12/2018 5:49 AM CDT) Iron 41 40 - 160 ug/dL [facility] TIBC 289 250 - 450 ug/dL [facility] Iron % Saturation 14 (L) 20 - 55 % [facility] Specimen Blood Performing Organization Address City/[facility]/Zipcode Phone Number [facility] [address] [place] [address] [facility] Ferritin (02/12/2018 5:49 AM CDT) Ferritin 45 5 - 275 ng/mL [facility] Specimen Blood Performing Organization Address [facility] Centercode Phone Number [facility] [address] [place] [address] [facility] Transesophageal echo (02/11/2018 2:08 PM CDT) Ejection Fraction [facility] ECHO HEARTLAB [facility] Specimen Narrative Performed At Transesophageal Echocardiography Report (HENNA) 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 3. Kyppfexi-yk-pksjia mitral annular calcification extending into both leaflets, [...] Quality: Technically adequate exam. Rhythm/BP 3D imaging (cpt 42757) rendering with interpretation was performed. LeftNormal left [...] AoV cusp calcification. Mild aortic regurgitation. 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 3. Tfyqgroi-qs-zdsrgz mitral annular calcification extending into both leaflets, [...] Quality: Technically adequate exam. Rhythm/BP 3D imaging (cpt 25142) rendering with interpretation was performed. Left Normal [...] cusp calcification. Mild aortic regurgitation. Mitral Valve Jqnexfmt-yu-rbgckg mitral annular calcification extending into both leaflets, [...] pericardial effusion is visualized. Performing Organization Address City/State/[facility] Centercode Phone Number [facility] HEARTLAB [facility] MR spine lumbar without IV contrast (02/10/2018 1:56 PM CDT) Specimen Narrative Performed At FINAL REPORT Mobile[employer] [facility] MRI of the lumbar spine Comparison:None Reason [...] MD Report Verified Date/Time:02/10/2018 14:56:55 Reading Location: [address] Consult Reading Room Procedure Note Interface, [...] Report Verified Date/Time: 02/10/2018 14:56:55 Reading Location: [facility] C0[facility] Consult Reading Room Performing Organization Address City/State/Zipcode Phone Number [facility] MR thoracic spine without IV contrast (02/10/2018 1:56 PM CDT) Specimen Narrative Performed At FINAL REPORT [facility] MRI of the thoracic spine Comparison:None Reason [...] MD Report Verified Date/Time:02/10/2018 14:43:52 Reading Location: [facility] [id number] Consult Reading Room Procedure Note Interface, External [...] Report Verified Date/Time: 02/10/2018 14:43:52 Reading Location: [facility] B1 C013W Consult Reading Room Performing Organization Address City/State/Zipcode Phone Number [employer] Venous doppler legs bilateral (02/10/2018 10:00 AM CDT) [facility] Fraction [facility] ECHO HEARTLAB [employer]eting To YouESSON [facility] Specimen Impressions Performed At Right Impression [facility] ECHO HEARTLAB MKCKESSON CPACS 1. There is no deep venous obstruction [...] PV LAB - Lower Extremities DVT Study [facility] ECHO HEART[facility] Demographics Patient Name JENNIFFER HARDEN Date of Study02/10/2018 KATIE [id number] Age72 Visit Number [id number] Gender Female Accession Number [id number] Date of Birth1945 Slick Cervantes [id number] Physician SonographRoberto Woods Interpreting Ricki Bradford, RVT PhysicianMD, RPVI Procedure Type of Study: Veins: Lower Extremities [...] Lower Extremities DVT Study Demographics Patient Name JENNIFFER HARDEN Date of Study 02/10/2018 KATIE Age 72 Visit Number [id number] Gender Female Accession Number [id number] Date of 1945 Referring Yovani Norris Room Number 1434 Physician Noodle Press Operator Malia Woods Interpreting Ricki Bradford T Physician , RPLISSETT Procedure Type of Study: Veins: Lower Extremities [...] (02/09/2018 12:14 PM CDT) Color, UA Yellow [facility] Clarity, UA Clear [facility] Specific [place], UA 1.010 1.001 - 1.035 [facility] pH, UA 5.5 5.0 - 8.0 [facility] Protein, UA Negative Negative [facility] Glucose, UA Negative Negative [facility] Ketones, UA Negative Negative [facility] Bilirubin, UA Negative Negative [facility] Blood, UA Negative Negative [facility] Nitrite, UA Negative Negative [facility] Leukocytes, UA Negative Negative [facility] Urobilinogen, UA 0.2 0.2 - 1.0 mg/dL [facility] RBC, UA <1 /HPF [facility] WBC, UA 1 /HPF [facility] Mucus Rare [facility] Squam Epithel, UA 1 /HPF [facility] Hyaline Casts, UA 2 /LPF [facility] Specimen Source [facility] Specimen Urine Performing Organization Address City/State/Zipcode Phone Number [facility] [address] [place] [address] [phone] CENTER 2D Echo W/Doppler(CW/PW/Color) (02/09/2018 9:29 AM CDT) Ejection Fraction [facility] ECHO HEARTLAB [facility] Specimen Narrative Performed At Transthoracic Echocardiography Report (TTE) [facility] ECHO [facility] LifeLockESS[facility] Demographics Patient NameMya HARDEN of Study02/09/2018 KATIE Female Visit [id number] Room [id number] Number Date of 1945Referring PhysicianJAY Pena Age 72 year(s)Noodle Press Operator Alisha Keene RDCS Fuse Spooler Shelly Hylton, Interpreting Rachel Myers MD RDCSPhysician Procedure Type of Study TTE procedure:2DECHO W DOPPLER(CW/PW/COLOR) (Routine) Indications:Suspected cardiac source of emboli. Clinical History HGB 10.2 HCT 33.5 % A-FIB, CHF, CAD, HTN, CVA X2, FORMER SMOKER, DCCV (01/2018-AT [place]) Contrast Medium: Bubble Study. Height: 62 inches [...] Transthoracic Echocardiography Report (TTE) Demographics Patient Name JENNIFFER HARDEN Date of Study 02/09/2018 KATIE Gender Female Visit Number [id number] Race Room Number 1434 Number Date of 1945 Referring Physician JAY Pena Age 72 year(s) Noodle Press Operator Alisha Keene [facility] Fuse Spooler Shelly Hylton, Interpreting Rachel Myers MD RDCS Physician Procedure Type of Study TTE procedure:2DECHO W DOPPLER(CW/PW/COLOR) (Routine) Indications:Suspected cardiac source of emboli. Clinical History HGB 10.2 HCT 33.5 % A-FIB, CHF, CAD, HTN, CVA X2, FORMER SMOKER, DCCV (01/2018-AT [place]) Contrast Medium: Bubble Study. Height: 62 inches [...] Estimated PASP: 43.44 mmHg Performing Organization Address [facility]d Phone Number [facility] ECHO HEARTLAB [facility]CKESSON [facility] Vitamin B12 and Folate (02/08/2018 5:10 AM CDT) Vitamin B12 460 213 - 816 pg/mL [facility] Folate 4.2 (L) >=7.0 ng/mL [facility] Specimen Blood Performing Organization Address [facility] Phone Number [address] [address] [phone] CENTER TSH/Free T4 If Indicated (02/08/2018 5:10 AM CDT)Only the most recent of2 resultswithin the time period is included. TSH 1.37 0.35 - 4.94 uIU/mL [facility] Specimen Blood Performing Organization Address [facility] Phone Number [address] [address] CENTER C-Reactive Protein (02/08/2018 5:10 AM CDT) CRP 7.42 (H) 0.00 - 0.50 mg/dL [facility] Specimen Blood Performing Organization Address [facility] Phone Number [address] [address] CENTER Phosphorus (02/08/2018 5:10 AM CDT) Phosphorus 3.7 2.3 - 4.7 mg/dL [facility] Specimen Blood Performing Organization Address City/[facility]/Zipcode Phone Number [facility] [address] [place] [phone] [facility] Urinalysis w/Microscopic (02/07/2018 8:32 PM CDT) Color, UA Yellow [facility] Clarity, UA Clear [facility] Specific [place], UA 1.015 1.001 - 1.035 [facility] pH, UA 5.5 5.0 - 8.0 [facility] Protein, UA Negative Negative [facility] Glucose, UA Negative Negative [facility] Ketones, UA Negative Negative [facility] Bilirubin, UA Negative Negative [facility] Blood, UA Negative Negative [facility] Nitrite, UA Negative Negative [facility] Leukocytes, UA Large (A) Negative [facility] Urobilinogen, UA 0.2 0.2 - 1.0 mg/dL [facility] RBC, UA 2 /HPF [facility] WBC, UA 46 /HPF [facility] Bacteria, UA Rare [facility] Mucus Occasional [facility] Squam Epithel, UA 4 /HPF [facility] Hyaline Casts, UA 4 /LPF [facility] Specimen Source Urine, Voided [facility] Specimen Urine Performing Organization Address City/State/Zipcode Phone Number [address] [address] [facility] MR brain without IV contrast (02/07/2018 6:38 PM CDT) Specimen Narrative Performed At FINAL REPORT [facility] Exam: MRI brain without contrast. Comparison:None. Clinical [...] No acute intracranial hemorrhage or mass effect. Vcsk-ho-mkykjhcf white matter microvascular ischemic changes. Prior microhemorrhage in the right frontal lobe. Findings discussed with Dr Helm at 7:25 PM on 02/07/2018. Signed: Shane Rodriguez MD Report Verified Date/Time:02/07/2018 19:27:07 Reading Location: [address] Reading Room Procedure Note Interface, External [...] No acute intracranial hemorrhage or mass effect. Bday-uh-inzdidmc white matter microvascular ischemic changes. Prior microhemorrhage in the right frontal lobe. Findings discussed with Dr Helm at 7:25 PM on 02/07/2018. Signed: Shane Rodriguez MD Report Verified Date/Time: 02/07/2018 19:27:07 Reading Location: [address] Reading Room Performing Organization Address City/State/Zipcode Phone Number [employer] MRA neck without IV contrast (02/07/2018 6:38 PM CDT) Specimen Narrative Performed At FINAL REPORT [employer] MRA head and neck without contrast. CLINICAL HISTORY: Stroke. Ischemic stroke evaluation.. COMPARISON: None. TECHNIQUE: Two- and three-dimensional ikzm-iz-xamebw MRA images of the intra- and extracranial [...] is antegrade in both vertebral arteries. MRA [place]: There is irregularity of the [...] MD Report Verified Date/Time:02/07/2018 19:25:57 Reading Location: [address] Transitional Reading Room Procedure Note Interface, External Ris In - 02/07/2018 7:28 PM CDT FINAL REPORT MRA head and neck without contrast. CLINICAL HISTORY: Stroke. Ischemic stroke evaluation.. COMPARISON: None. TECHNIQUE: Two- and three-dimensional iylu-ip-qoigfs MRA images of the intra- and extracranial [...] is antegrade in both vertebral arteries. MRA [place]: There is irregularity of the [...] Report Verified Date/Time: 02/07/2018 19:25:57 Reading Location: [address] Transitional Reading Room Performing Organization Address City/State/Zipcode Phone Number [employer] MRA head without IV contrast (02/07/2018 6:38 PM CDT) Specimen Narrative Performed At FINAL REPORT [employer] MRA head and neck without contrast. CLINICAL HISTORY: Stroke. Ischemic stroke evaluation.. COMPARISON: None. TECHNIQUE: Two- and three-dimensional jsfw-ze-atooiw MRA images of the intra- and extracranial [...] is antegrade in both vertebral arteries. MRA [place]: There is irregularity of the [...] MD Report Verified Date/Time:02/07/2018 19:25:57 Reading Location: [address] Transitional Reading Room Procedure Note Interface, External Ris In - 02/07/2018 7:28 PM CDT FINAL REPORT MRA head and neck without contrast. CLINICAL HISTORY: Stroke. Ischemic stroke evaluation.. COMPARISON: None. TECHNIQUE: Two- and three-dimensional bldm-im-acdooh MRA images of the intra- and extracranial [...] is antegrade in both vertebral arteries. MRA [place]: There is irregularity of the [...] Report Verified Date/Time: 02/07/2018 19:25:57 Reading Location: [address] Transitional Reading Room Performing Organization Address City/State/Zipcode Phone Number [employer] RIS ECG 12 lead (02/07/2018 10:24 AM CDT) Specimen Narrative Performed At Ventricular Rate 76 BPM GE MUSE Atrial Rate 76 BPM P-R Interval 160 ms QRS Duration 72 ms Q-T Interval 226 ms QTC Calculation(Bazett) 254 ms P [place] 43 degrees R [place] -11 degrees T [place] -85 degrees Sinus rhythm with Premature atrial complexes Interatrial conduction delay Prolonged QT Abnormal ECG No previous ECGs available Confirmed by MD ZULETA YOCHAI ([id number]) on 02/08/2018 3:49:27 AM Procedure Note Interface, External Ris In - 02/08/2018 3:49 AM CDT Ventricular Rate 76 BPM Atrial Rate 76 BPM P-R Interval 160 ms QRS Duration 72 ms Q-T Interval 226 ms QTC Calculation(Bazett) 254 ms P [place] 43 degrees R [place] -11 degrees T [place] -85 degrees Sinus rhythm with Premature atrial complexes Interatrial conduction delay Prolonged QT Abnormal ECG No previous ECGs available Confirmed by MD ZULETA YOCHAI ([id number]) on 02/08/2018 3:49:27 AM Performing Organization Address City/State/Zipcode Phone Number [employer] MUSE Hemoglobin A1c (02/07/2018 8:24 AM CDT) Hemoglobin A1C 6.0 4.3 - 6.1 % [facility] Specimen Blood Performing Organization Address City/State/Zipcode Phone Number [address] [address] CENTER after 01/25/2018 Insurance Payer Benefit Plan / Group Subscriber ID Type Phone Address [employer] - MEDICARE UNITED MED[employer]ARE HMO xxxxxxxxx MGD CARE Guarantor Name Account Type Relation to Date of Phone Billing Address Patient Jenniffer Harden Personal/Famil Self 1945 [address] Katie y (Home) [place] [address] Advance Directives For more information, please contact:[address] [phone] Code Status Date Activated Date Inactivated Comments Full Code 10/27/2018 6:29 AM 10/29/2018 4:14 PM This code status was determined by: Patient Full Code 02/11/2018 2:32 PM 02/13/2018 8:12 PM This code status was determined by: Patient Full Code 02/07/2018 4:10 AM 02/11/2018 2:32 PM This code status was determined by: Patient Full Code 10/21/2017 6:50 AM 10/23/2017 3:42 PM This code status was determined by: Patient Name Relationship Healthcare Agent Relationship Phone MontoyaYonatan Natural son Primary healthcare agent [phone] Max Montoya Natural son Primary healthcare agent [phone]
--- OUTSIDE RECORDS SUMMARY | 2019-01-26 13:20 | XMS REPORT ---
:1945 Author Organization [facility] Address [address] [place] [address] [address] [place] [address] Care Team Providers Name Role Phone RICK FLYNN Unavailable Unavailable MARISOL TELLEZ Unavailable Unavailable CARLOS SEO Unavailable Unavailable Problems This patient has no known problems. Allergies, Adverse Reactions, Alerts This patient has no known allergies or adverse reactions. Medications This patient has no known medications. Results Test Description Test Time Test Comments Text Results Atomic Results Result Comments TISSUE EXAM 2018-11-02 17:45:00 Surgical Pathology Report Case: [id number] Authorizing Provider: Rick Flynn, Collected: 10/27/2018 0955 Ordering Location: [facility] Received: 10/27/2018 1010 PERIOPERATIVE SERVICES Pathologist: Gilbert Anderson MD Specimen: Plaque, LEFT CAROTID PLAQUE ARTERY, LEFT CAROTID, ENDARTERECTOMY:CALCIFIC ATHEROSCLEROTIC PLAQUE Signing Pathologist Direct Phone Line: [phone] signed by Gilbert Anderson MD on 11/02/2018 at 5:45 [id number]; [id number] carotid stenosisLeft carotid plaqueThe specimen is received in a formalin-filled container and labeled with the patient's information and labeled "left carotid plaque" and consists of a calcified tubular shaped segment of tissue measuring 1.5 cm in length x 0.6 cm in diameter. Cell Cleaner sections are submitted A1 for decal. CG/pl Performed CBC W/PLT COUNT & AUTO DIFFERENTIAL 2018-10-29 06:55:00 Test Item Value Reference Range Comments WHITE BLOOD CELL COUNT (BEAKER) (test bjhq=769) 4.6 K/ L 3.5-10.5 RED BLOOD CELL COUNT (BEAKER) (test vvpa=057) 3.30 M/ L 3.93-5.22 HEMOGLOBIN (BEAKER) (test vgkc=341) 7.4 GM/DL 11.2-15.7 HEMATOCRIT (BEAKER) (test znwx=419) 25.6 % 34.1-44.9 MEAN CORPUSCULAR VOLUME (BEAKER) (test dubc=893) 77.6 fL 79.4-94.8 MEAN CORPUSCULAR HEMOGLOBIN (BEAKER) (test iuea=402) 22.4 pg 25.6-32.2 MEAN CORPUSCULAR HEMOGLOBIN CONC (BEAKER) (test cktq=172) 28.9 GM/DL 32.2- 35.5 RED CELL DISTRIBUTION WIDTH (BEAKER) (test kvli=718) 18.2 % 11.7-14.4 PLATELET COUNT (BEAKER) (test xnkb=877) 149 K/CU MM 150-450 MEAN PLATELET VOLUME (BEAKER) (test hzmx=590) 12.9 fL 9.4-12.3 NUCLEATED RED BLOOD CELLS (BEAKER) (test auik=790) 0 /100 WBC 0-0 NEUTROPHILS RELATIVE PERCENT (BEAKER) (test vxoh=533) 58 % LYMPHOCYTES RELATIVE PERCENT (BEAKER) (test jeos=594) 25 % MONOCYTES RELATIVE PERCENT (BEAKER) (test xwil=405) 12 % EOSINOPHILS RELATIVE PERCENT (BEAKER) (test acnz=330) 5 % BASOPHILS RELATIVE PERCENT (BEAKER) (test yivj=827) 0 % NEUTROPHILS ABSOLUTE COUNT (BEAKER) (test tfjk=068) 2.66 K/ L 1.56-6.13 LYMPHOCYTES ABSOLUTE COUNT (BEAKER) (test yski=297) 1.12 K/ L 1.18-3.74 MONOCYTES ABSOLUTE COUNT (BEAKER) (test zdsa=629) 0.54 K/ L 0.24-0.36 EOSINOPHILS ABSOLUTE COUNT (BEAKER) (test cpdj=482) 0.21 K/ L 0.04-0.36 BASOPHILS ABSOLUTE COUNT (BEAKER) (test gwmm=118) 0.02 K/ L 0.01-0.08 IMMATURE GRANULOCYTES-RELATIVE PERCENT (BEAKER) (test 0 % 0-1 gycz=4497) [id number] 06:04:00 Test Item Value Reference Range Comments MAGNESIUM (BEAKER) (test poop=004) 1.9 mg/dL 1.6-2.6 BASIC METABOLIC [id number] 06:04:00 Test Item Value Reference Range Comments SODIUM (BEAKER) (test 135 meq/L 136-145 umfn=384) POTASSIUM (BEAKER) (test 3.3 meq/L 3.5-5.1 snzs=934) CHLORIDE (BEAKER) (test 103 meq/L 98-107 uqkd=472) CO2 (BEAKER) (test 23 meq/L 22-29 gces=951) BLOOD UREA NITROGEN 9 mg/dL 7-21 (BEAKER) (test ncrc=756) CREATININE (BEAKER) (test 0.84 mg/dL 0.57-1.25 xsxb=283) GLUCOSE RANDOM (BEAKER) 87 mg/dL 70-105 (test sxpm=600) CALCIUM (BEAKER) (test 8.2 mg/dL 8.4-10.2 jgvh=137) EGFR (BEAKER) (test 67 mL/min/1.73 sq m ESTIMATED GFR IS NOT phlm=7110) ACCURATE CREATININE CLEARANCE IN PREDICTING GLOMERULAR FILTRATION RATE. ESTIMATED GFR IS NOT APPLICABLE FOR DIALYSIS PATIENTS. HEMOGLOBIN AND [id number] 14:48:00 Test Item Value Reference Range Comments HEMOGLOBIN (BEAKER) (test imlp=196) 7.4 GM/DL 11.2-15.7 HEMATOCRIT (BEAKER) (test mwyc=621) 25.9 % 34.1-44.9 BASIC METABOLIC [id number] 08:59:00 Test Item Value Reference Range Comments SODIUM (BEAKER) (test 134 meq/L 136-145 hkrz=829) POTASSIUM (BEAKER) (test 3.5 meq/L 3.5-5.1 ulvf=604) CHLORIDE (BEAKER) (test 106 meq/L 98-107 bnya=804) CO2 (BEAKER) (test 20 meq/L 22-29 kcvp=184) BLOOD UREA NITROGEN 13 mg/dL 7-21 (BEAKER) (test nxqx=207) CREATININE (BEAKER) (test 0.92 mg/dL 0.57-1.25 pgjr=115) GLUCOSE RANDOM (BEAKER) 122 mg/dL 70-105 (test cxwf=419) CALCIUM (BEAKER) (test 8.3 mg/dL 8.4-10.2 xlzq=273) EGFR (BEAKER) (test 60 mL/min/1.73 sq m ESTIMATED GFR IS NOT qtyn=9318) ACCURATE CREATININE CLEARANCE IN PREDICTING GLOMERULAR FILTRATION RATE. ESTIMATED GFR IS NOT APPLICABLE FOR DIALYSIS PATIENTS. HEMOGLOBIN AND [id number] 08:43:00 Test Item Value Reference Range Comments HEMOGLOBIN (BEAKER) (test eucj=813) 7.7 GM/DL 11.2-15.7 HEMATOCRIT (BEAKER) (test fwws=701) 26.7 % 34.1-44.9 HEMOGLOBIN AND [id number] 02:15:00 Test Item Value Reference Range Comments HEMOGLOBIN (BEAKER) (test qznn=449) 6.2 GM/DL 11.2-15.7 HEMATOCRIT (BEAKER) (test elro=598) 22.2 % 34.1-44.9 [id number] 01:43:00 Test Item Value Reference Range Comments MAGNESIUM (BEAKER) (test suhj=602) 1.6 mg/dL 1.6-2.6 BASIC METABOLIC [id number] 01:43:00 Test Item Value Reference Range Comments SODIUM (BEAKER) (test 136 meq/L 136-145 euyc=953) POTASSIUM (BEAKER) (test 3.7 meq/L 3.5-5.1 dbui=545) CHLORIDE (BEAKER) (test 106 meq/L 98-107 kuqi=135) CO2 (BEAKER) (test 23 meq/L 22-29 rnry=744) BLOOD UREA NITROGEN 16 mg/dL 7-21 (BEAKER) (test fijc=936) CREATININE (BEAKER) (test 1.02 mg/dL 0.57-1.25 iygq=133) GLUCOSE RANDOM (BEAKER) 98 mg/dL 70-105 (test vheb=337) CALCIUM (BEAKER) (test 8.6 mg/dL 8.4-10.2 emww=787) EGFR (BEAKER) (test 53 mL/min/1.73 sq m ESTIMATED GFR IS NOT pdlu=4555) ACCURATE CREATININE CLEARANCE IN PREDICTING GLOMERULAR FILTRATION RATE. ESTIMATED GFR IS NOT APPLICABLE FOR DIALYSIS PATIENTS. CBC (HEMOGRAM ONLY)2018-10-28 01:04:00 Test Item Value Reference Range Comments WHITE BLOOD CELL COUNT (BEAKER) (test aswt=447) 5.1 K/ L 3.5-10.5 RED BLOOD CELL COUNT (BEAKER) (test wxvw=971) 3.12 M/ L 3.93-5.22 HEMOGLOBIN (BEAKER) (test bkmh=168) 6.5 GM/DL 11.2-15.7 HEMATOCRIT (BEAKER) (test uakg=371) 24.0 % 34.1-44.9 MEAN CORPUSCULAR VOLUME (BEAKER) (test eidr=367) 76.9 fL 79.4-94.8 MEAN CORPUSCULAR HEMOGLOBIN (BEAKER) (test 20.8 pg 25.6-32.2 yant=810) MEAN CORPUSCULAR HEMOGLOBIN CONC (BEAKER) (test 27.1 GM/DL 32.2-35.5 ljki=383) RED CELL DISTRIBUTION WIDTH (BEAKER) (test 18.8 % 11.7-14.4 vsuo=715) PLATELET COUNT (BEAKER) (test xrem=092) 177 K/CU MM 150-450 MEAN PLATELET VOLUME (BEAKER) (test enmf=755) 12.8 fL 9.4-12.3 NUCLEATED RED BLOOD CELLS (BEAKER) (test 0 /100 WBC 0-0 wrqo=955) PLATELET AGGREGATION: FUNCTION [id number] 19:33:00 Test Item Value Reference Range Comments WEAK ADP RESULT(BEAKER) (test 98 % 60-91 culs=7819) PLATELET FUNCTION SCREEN 60-100% indicates normal INTERP (BEAKER) (test platelet function yijx=2919) [id number] (BEAKER) Ema Londono MD (electronic (test iehp=1040) signature) PLATELET COUNT AGG (BEAKER) 171 K/CU MM 150-450 (test nfwf=5075) Platelet Function Screen results may be falsely low with platelet counts<100, 000/cu mm.for patients on clopidogrel in past two weeksfor patients on clopidogrel in past two weeksfor patients on clopidogrel in past two weeksHGB/ HCT (H&H) - STAT [id number] 11:58:00 Test Item Value Reference Range Comments HEMOGLOBIN (BEAKER) (test vmrm=637) 7.6 g/dL 12.0-15.0 HEMATOCRIT (BEAKER) (test fxsk=887) 22.0 % 36.0-45.0 GLUCOSE-STAT [id number] 11:57:00 Test Item Value Reference Range Comments GLUCOSE RANDOM (BEAKER) (test fngr=789) 96 mg/dL 70-110 POTASSIUM-STAT [id number] 11:57:00 Test Item Value Reference Range Comments POTASSIUM (BEAKER) (test bjvy=590) 3.8 meq/L 3.6-5.5 POTASSIUM-STAT [id number] 09:09:00 Test Item Value Reference Range Comments POTASSIUM (BEAKER) (test ummq=455) 3.6 meq/L 3.6-5.5 BLOOD GAS, [id number] 09:09:00 Test Item Value Reference Range Comments PH ARTERIAL (BEAKER) (test zykc=467) 7.32 7.35-7.45 PCO2 ARTERIAL (BEAKER) (test ydkn=362) 46 mmHg 35-45 PO2 ARTERIAL (BEAKER) (test lezm=901) 274 mmHg 80-90 O2 SATURATION ARTERIAL (BEAKER) (test ixgp=452) 99.6 % 96.0-97.0 HCO3 ARTERIAL (BEAKER) (test jwgr=097) 23 mmol/L 21-29 BASE EXCESS ARTERIAL (BEAKER) (test gxkq=160) -3.2 mmol/L -2.0-3.0 PATIENT TEMPERATURE (BEAKER) (test fwqf=9144) 36.0 C FIO2 (BEAKER) (test qjiy=0986) 100.0 % GLUCOSE-STAT [id number] 09:09:00 Test Item Value Reference Range Comments GLUCOSE RANDOM (BEAKER) (test bsdx=998) 112 mg/dL 70-110 HGB/HCT (H&H) - STAT [id number] 09:09:00 Test Item Value Reference Range Comments HEMOGLOBIN (BEAKER) (test ifxi=183) 7.5 g/dL 12.0-15.0 HEMATOCRIT (BEAKER) (test plkc=722) 22.0 % 36.0-45.0 CALCIUM, [id number] 09:09:00 Test Item Value Reference Range Comments CALCIUM IONIZED (BEAKER) (test bmje=044) 1.04 mmol/L 1.12-1.27 PH, BLOOD (BEAKER) (test slhm=8046) 7.30 SODIUM NA-STAT [id number] 09:08:00 Test Item Value Reference Range Comments SODIUM (BEAKER) (test qluj=428) 138 meq/L 135-148 POCT-GLUCOSE [id number] 06:33:00 Test Item Value Reference Range Comments POC-GLUCOSE METER (BEAKER) 110 mg/dL 70-110 TESTED AT [facility] [address] (test osbi=8558) [facility] [address] RAD, CHEST, 2 [id number] 13:20:00Reason for exam:->pre op screenFINAL REPORT Chest x-ray, PA and lateral views Clinical History: pre op screen Comparison: October 21, 2017 Findings: Cardiac silhouette is mildly enlarged. Aorta is tortuous/ectatic. No consolidation, vascular congestion, pneumothorax, or pleural effusion. Osseous structures demonstrate degenerative changes and decreased bony mineralization. Several compression deformities areseen in the thoracic spine, age indeterminate. Status post left shoulder arthroplasty. Impression: Mildly enlarged cardiac silhouette. Age- indeterminate compression deformities in thoracic spine. Signed: Bk Maurice Verified Date/Time: 10/26/2018 13:20:52 Reading Location: [address] Consult Reading Room LIPID [id number] 12:51:00 Test Item Value Reference Range Comments TRIGLYCERIDES (BEAKER) (test cbgi=801) 110 mg/dL CHOLESTEROL (BEAKER) (test pcgn=399) 203 mg/dL HDL CHOLESTEROL (BEAKER) (test aprp=348) 74 mg/dL LDL CHOLESTEROL CALCULATED (BEAKER) (test 107 mg/dL zjsv=211) Triglyceride Reference Range: Low Risk <150 Borderline 150- 199 High Risk 200-499 Very High Risk >=500Cholesterol Reference Range: Low Risk <200 Borderline 200-239 High Risk > 240HDL Cholesterol Reference Range: Low Risk >=60 High Risk <40LDL Cholesterol Reference Range: Optimal <100 Near Optimal 100-129 Borderline 130-159 High 160-189 Very High >=190BASIC METABOLIC [id number] 12:51:00 Test Item Value Reference Range Comments SODIUM (BEAKER) (test 139 meq/L 136-145 mciq=862) POTASSIUM (BEAKER) (test 4.0 meq/L 3.5-5.1 cqzx=115) CHLORIDE (BEAKER) (test 105 meq/L 98-107 lmox=964) CO2 (BEAKER) (test 23 meq/L 22-29 rxcg=281) BLOOD UREA NITROGEN 17 mg/dL 7-21 (BEAKER) (test pqhj=537) CREATININE (BEAKER) (test 1.05 mg/dL 0.57-1.25 eprz=054) GLUCOSE RANDOM (BEAKER) 85 mg/dL 70-105 (test pcos=655) CALCIUM (BEAKER) (test 9.5 mg/dL 8.4-10.2 yyly=891) EGFR (BEAKER) (test 52 mL/min/1.73 sq m ESTIMATED GFR IS NOT amtk=8920) ACCURATE CREATININE CLEARANCE IN PREDICTING GLOMERULAR FILTRATION RATE. ESTIMATED GFR IS NOT APPLICABLE FOR DIALYSIS PATIENTS. CBC W/PLT COUNT & AUTO [id number] 12:47:00 Test Item Value Reference Range Comments WHITE BLOOD CELL COUNT (BEAKER) (test nkjg=209) 6.4 K/ L 3.5-10.5 RED BLOOD CELL COUNT (BEAKER) (test bcme=200) 3.53 M/ L 3.93-5.22 HEMOGLOBIN (BEAKER) (test xbdq=192) 7.5 GM/DL 11.2-15.7 HEMATOCRIT (BEAKER) (test rbvq=840) 27.3 % 34.1-44.9 MEAN CORPUSCULAR VOLUME (BEAKER) (test scef=301) 77.3 fL 79.4-94.8 MEAN CORPUSCULAR HEMOGLOBIN (BEAKER) (test 21.2 pg 25.6-32.2 rygu=529) MEAN CORPUSCULAR HEMOGLOBIN CONC (BEAKER) (test 27.5 GM/DL 32.2-35.5 rgiq=256) RED CELL DISTRIBUTION WIDTH (BEAKER) (test 18.4 % 11.7-14.4 xwrv=106) PLATELET COUNT (BEAKER) (test cykw=998) 189 K/CU MM 150-450 MEAN PLATELET VOLUME (BEAKER) (test idvw=221) 12.3 fL 9.4-12.3 NUCLEATED RED BLOOD CELLS (BEAKER) (test 0 /100 WBC 0-0 qxqz=303) NEUTROPHILS RELATIVE PERCENT (BEAKER) (test 61 % grey=027) LYMPHOCYTES RELATIVE PERCENT (BEAKER) (test 25 % edxt=757) MONOCYTES RELATIVE PERCENT (BEAKER) (test 9 % pege=002) EOSINOPHILS RELATIVE PERCENT (BEAKER) (test 4 % zfhk=281) BASOPHILS RELATIVE PERCENT (BEAKER) (test 1 % tnaj=647) NEUTROPHILS ABSOLUTE COUNT (BEAKER) (test 3.90 K/ L 1.56-6.13 tclg=125) LYMPHOCYTES ABSOLUTE COUNT (BEAKER) (test 1.62 K/ L 1.18-3.74 npai=281) MONOCYTES ABSOLUTE COUNT (BEAKER) (test 0.56 K/ L 0.24-0.36 jzcx=792) EOSINOPHILS ABSOLUTE COUNT (BEAKER) (test 0.24 K/ L 0.04-0.36 tzri=626) BASOPHILS ABSOLUTE COUNT (BEAKER) (test 0.04 K/ L 0.01-0.08 exfp=757) IMMATURE GRANULOCYTES-RELATIVE PERCENT (BEAKER) 1 % 0-1 (test kyxq=0378) PROTHROMBIN [id number] 12:45:00 Test Item Value Reference Range Comments PROTIME (BEAKER) (test gepa=529) 13.1 seconds 11.7-14.7 INR (BEAKER) (test vrsi=885) 1.0 <=5.9 RECOMMENDED COUMADIN/WARFARIN INR THERAPY RANGESSTANDARD DOSE: 2.0 - 3.0 Includes: PROPHYLAXIS forvenous thrombosis, systemic embolization; TREATMENT for venous thrombosis and/or pulmonary embolus.HIGH RISK: Target INR is 2.5-3.5 for patients with mechanical heart valves.[id number] 07:41:00 Test Item Value Reference Range Comments MAGNESIUM (BEAKER) (test xazl=662) 1.9 mg/dL 1.6-2.6 BASIC METABOLIC [id number] 07:41:00 Test Item Value Reference Range Comments SODIUM (BEAKER) (test 137 meq/L 136-145 fbud=620) POTASSIUM (BEAKER) (test 3.5 meq/L 3.5-5.1 hkoo=526) CHLORIDE (BEAKER) (test 100 meq/L 98-107 ikhj=821) CO2 (BEAKER) (test 24 meq/L 22-29 tted=811) BLOOD UREA NITROGEN 13 mg/dL 7-21 (BEAKER) (test ugkb=161) CREATININE (BEAKER) (test 0.80 mg/dL 0.57-1.25 kzsk=979) GLUCOSE RANDOM (BEAKER) 71 mg/dL 70-105 (test efzz=926) CALCIUM (BEAKER) (test 9.5 mg/dL 8.4-10.2 zbbe=548) EGFR (BEAKER) (test 71 mL/min/1.73 sq m ESTIMATED GFR IS NOT caun=8394) ACCURATE CREATININE CLEARANCE IN PREDICTING GLOMERULAR FILTRATION RATE. ESTIMATED GFR IS NOT APPLICABLE FOR DIALYSIS PATIENTS. CBC W/PLT COUNT & AUTO [id number] 07:12:00 Test Item Value Reference Range Comments WHITE BLOOD CELL COUNT (BEAKER) (test xood=949) 5.3 K/ L 3.5-10.5 RED BLOOD CELL COUNT (BEAKER) (test gevs=367) 3.76 M/ L 3.93-5.22 HEMOGLOBIN (BEAKER) (test ezhw=151) 10.1 GM/DL 11.2-15.7 HEMATOCRIT (BEAKER) (test phcy=286) 33.1 % 34.1-44.9 MEAN CORPUSCULAR VOLUME (BEAKER) (test cjxj=210) 88.0 fL 79.4-94.8 MEAN CORPUSCULAR HEMOGLOBIN (BEAKER) (test 26.9 pg 25.6-32.2 ajdy=191) MEAN CORPUSCULAR HEMOGLOBIN CONC (BEAKER) (test 30.5 GM/DL 32.2-35.5 cmxw=681) RED CELL DISTRIBUTION WIDTH (BEAKER) (test 14.4 % 11.7-14.4 youn=037) PLATELET COUNT (BEAKER) (test tcdn=295) 218 K/CU MM 150-450 MEAN PLATELET VOLUME (BEAKER) (test unpb=461) 12.7 fL 9.4-12.3 NUCLEATED RED BLOOD CELLS (BEAKER) (test 0 /100 WBC 0-0 dtes=104) NEUTROPHILS RELATIVE PERCENT (BEAKER) (test 68 % vfpn=997) LYMPHOCYTES RELATIVE PERCENT (BEAKER) (test 19 % jgrw=420) MONOCYTES RELATIVE PERCENT (BEAKER) (test 9 % rrae=100) EOSINOPHILS RELATIVE PERCENT (BEAKER) (test 3 % ruto=927) BASOPHILS RELATIVE PERCENT (BEAKER) (test 1 % eyzt=190) NEUTROPHILS ABSOLUTE COUNT (BEAKER) (test 3.59 K/ L 1.56-6.13 tajs=584) LYMPHOCYTES ABSOLUTE COUNT (BEAKER) (test 0.97 K/ L 1.18-3.74 aqzx=701) MONOCYTES ABSOLUTE COUNT (BEAKER) (test 0.46 K/ L 0.24-0.36 cwxp=214) EOSINOPHILS ABSOLUTE COUNT (BEAKER) (test 0.13 K/ L 0.04-0.36 dxpl=812) BASOPHILS ABSOLUTE COUNT (BEAKER) (test 0.03 K/ L 0.01-0.08 osyk=553) IMMATURE GRANULOCYTES-RELATIVE PERCENT (BEAKER) 1 % 0-1 (test uzas=4863) [id number] 07:19:00 Test Item Value Reference Range Comments FERRITIN (BEAKER) (test aepv=094) 45 ng/mL 5-275 IRON, TIBC, % SAT. (WITHOUT FERRITIN)2018-02-12 07:01:00 Test Item Value Reference Range Comments IRON (BEAKER) (test wdlh=584) 41 ug/dL 40-160 TOTAL IRON BINDING CAPACITY (BEAKER) (test 289 ug/dL 250-450 hcta=556) IRON % SATURATION (2) (BEAKER) (test gyfw=8491) 14 % 20-55 [id number] 06:41:00 Test Item Value Reference Range Comments MAGNESIUM (BEAKER) (test crba=257) 1.9 mg/dL 1.6-2.6 BASIC METABOLIC [id number] 06:41:00 Test Item Value Reference Range Comments SODIUM (BEAKER) (test 135 meq/L 136-145 jvco=647) POTASSIUM (BEAKER) (test 3.5 meq/L 3.5-5.1 cmwy=857) CHLORIDE (BEAKER) (test 97 meq/L 98-107 dmig=930) CO2 (BEAKER) (test 26 meq/L 22-29 gyhh=706) BLOOD UREA NITROGEN 14 mg/dL 7-21 (BEAKER) (test cytg=549) CREATININE (BEAKER) (test 0.87 mg/dL 0.57-1.25 drxf=521) GLUCOSE RANDOM (BEAKER) 91 mg/dL 70-105 (test komd=806) CALCIUM (BEAKER) (test 9.5 mg/dL 8.4-10.2 aslo=967) EGFR (BEAKER) (test 64 mL/min/1.73 sq m ESTIMATED GFR IS NOT vfow=4703) ACCURATE CREATININE CLEARANCE IN PREDICTING GLOMERULAR FILTRATION RATE. ESTIMATED GFR IS NOT APPLICABLE FOR DIALYSIS PATIENTS. CBC W/PLT COUNT & AUTO [id number] 06:20:00 Test Item Value Reference Range Comments WHITE BLOOD CELL COUNT (BEAKER) (test mkli=651) 5.7 K/ L 3.5-10.5 RED BLOOD CELL COUNT (BEAKER) (test iodk=186) 3.60 M/ L 3.93-5.22 HEMOGLOBIN (BEAKER) (test erjq=573) 9.7 GM/DL 11.2-15.7 HEMATOCRIT (BEAKER) (test jjlk=632) 31.2 % 34.1-44.9 MEAN CORPUSCULAR VOLUME (BEAKER) (test gwgi=857) 86.7 fL 79.4-94.8 MEAN CORPUSCULAR HEMOGLOBIN (BEAKER) (test 26.9 pg 25.6-32.2 ncfr=808) MEAN CORPUSCULAR HEMOGLOBIN CONC (BEAKER) (test 31.1 GM/DL 32.2-35.5 ghrf=002) RED CELL DISTRIBUTION WIDTH (BEAKER) (test 14.5 % 11.7-14.4 waik=727) PLATELET COUNT (BEAKER) (test apks=138) 208 K/CU MM 150-450 MEAN PLATELET VOLUME (BEAKER) (test jofp=550) 12.7 fL 9.4-12.3 NUCLEATED RED BLOOD CELLS (BEAKER) (test 0 /100 WBC 0-0 jaqp=722) NEUTROPHILS RELATIVE PERCENT (BEAKER) (test 68 % tnbr=286) LYMPHOCYTES RELATIVE PERCENT (BEAKER) (test 19 % igml=363) MONOCYTES RELATIVE PERCENT (BEAKER) (test 8 % gphi=769) EOSINOPHILS RELATIVE PERCENT (BEAKER) (test 3 % mbgo=365) BASOPHILS RELATIVE PERCENT (BEAKER) (test 1 % jmxt=248) NEUTROPHILS ABSOLUTE COUNT (BEAKER) (test 3.90 K/ L 1.56-6.13 nvsw=762) LYMPHOCYTES ABSOLUTE COUNT (BEAKER) (test 1.08 K/ L 1.18-3.74 mqbb=639) MONOCYTES ABSOLUTE COUNT (BEAKER) (test 0.48 K/ L 0.24-0.36 befi=850) EOSINOPHILS ABSOLUTE COUNT (BEAKER) (test 0.17 K/ L 0.04-0.36 chvv=887) BASOPHILS ABSOLUTE COUNT (BEAKER) (test 0.03 K/ L 0.01-0.08 xxhv=190) IMMATURE GRANULOCYTES-RELATIVE PERCENT (BEAKER) 1 % 0-1 (test fqdh=3986) [id number] 06:02:00 Test Item Value Reference Range Comments MAGNESIUM (BEAKER) (test rhqh=906) 1.8 mg/dL 1.6-2.6 BASIC METABOLIC [id number] 06:02:00 Test Item Value Reference Range Comments SODIUM (BEAKER) (test 135 meq/L 136-145 qymp=034) POTASSIUM (BEAKER) (test 3.4 meq/L 3.5-5.1 wtdx=971) CHLORIDE (BEAKER) (test 97 meq/L 98-107 qefz=709) CO2 (BEAKER) (test 28 meq/L 22-29 qdaj=123) BLOOD UREA NITROGEN 19 mg/dL 7-21 (BEAKER) (test gjca=309) CREATININE (BEAKER) (test 1.04 mg/dL 0.57-1.25 llfo=663) GLUCOSE RANDOM (BEAKER) 98 mg/dL 70-105 (test gxmb=279) CALCIUM (BEAKER) (test 9.6 mg/dL 8.4-10.2 hrnm=786) EGFR (BEAKER) (test 52 mL/min/1.73 sq m ESTIMATED GFR IS NOT wnij=6395) ACCURATE CREATININE CLEARANCE IN PREDICTING GLOMERULAR FILTRATION RATE. ESTIMATED GFR IS NOT APPLICABLE FOR DIALYSIS PATIENTS. CBC W/PLT COUNT & AUTO [id number] 05:35:00 Test Item Value Reference Range Comments WHITE BLOOD CELL COUNT (BEAKER) (test oqqo=318) 5.8 K/ L 3.5-10.5 RED BLOOD CELL COUNT (BEAKER) (test pjrg=668) 3.58 M/ L 3.93-5.22 HEMOGLOBIN (BEAKER) (test blfn=086) 9.9 GM/DL 11.2-15.7 HEMATOCRIT (BEAKER) (test jeil=453) 31.5 % 34.1-44.9 MEAN CORPUSCULAR VOLUME (BEAKER) (test vgzm=635) 88.0 fL 79.4-94.8 MEAN CORPUSCULAR HEMOGLOBIN (BEAKER) (test 27.7 pg 25.6-32.2 mudh=205) MEAN CORPUSCULAR HEMOGLOBIN CONC (BEAKER) (test 31.4 GM/DL 32.2-35.5 sgqg=777) RED CELL DISTRIBUTION WIDTH (BEAKER) (test 14.5 % 11.7-14.4 pcsi=408) PLATELET COUNT (BEAKER) (test ltdj=410) 183 K/CU MM 150-450 MEAN PLATELET VOLUME (BEAKER) (test vvqi=572) 12.1 fL 9.4-12.3 NUCLEATED RED BLOOD CELLS (BEAKER) (test 0 /100 WBC 0-0 fvsr=787) NEUTROPHILS RELATIVE PERCENT (BEAKER) (test 68 % vwif=750) LYMPHOCYTES RELATIVE PERCENT (BEAKER) (test 18 % tssd=437) MONOCYTES RELATIVE PERCENT (BEAKER) (test 9 % jjom=343) EOSINOPHILS RELATIVE PERCENT (BEAKER) (test 4 % reba=637) BASOPHILS RELATIVE PERCENT (BEAKER) (test 1 % mnfw=318) NEUTROPHILS ABSOLUTE COUNT (BEAKER) (test 3.90 K/ L 1.56-6.13 hoer=665) LYMPHOCYTES ABSOLUTE COUNT (BEAKER) (test 1.05 K/ L 1.18-3.74 prtw=524) MONOCYTES ABSOLUTE COUNT (BEAKER) (test 0.51 K/ L 0.24-0.36 fyoi=804) EOSINOPHILS ABSOLUTE COUNT (BEAKER) (test 0.20 K/ L 0.04-0.36 rbkt=826) BASOPHILS ABSOLUTE COUNT (BEAKER) (test 0.03 K/ L 0.01-0.08 ymxc=752) IMMATURE GRANULOCYTES-RELATIVE PERCENT (BEAKER) 1 % 0-1 (test bmya=0063) MR, SPINE, LUMBAR, WITHOUT [id number] 14:56:00FINAL REPORT MRI of the lumbar spine [...] Catrachita Calle Verified Date/Time: 02/10/2018 14:56:55Reading Location: [address] Consult Reading Room MR, SPINE, THORACIC, WITHOUT [id number] 14:43: 00FINAL REPORT MRI of the thoracic [...] Calle Verified Date/Time: 02/10/2018 14:43:52 Reading Location: [address] Consult Reading Room [id number] 04:38:00 Test Item Value Reference Range Comments MAGNESIUM (BEAKER) (test mhgq=032) 2.1 mg/dL 1.6-2.6 BASIC METABOLIC [id number] 04:38:00 Test Item Value Reference Range Comments SODIUM (BEAKER) (test 137 meq/L 136-145 lcls=147) POTASSIUM (BEAKER) (test 3.4 meq/L 3.5-5.1 jggx=426) CHLORIDE (BEAKER) (test 96 meq/L 98-107 jkik=391) CO2 (BEAKER) (test 30 meq/L 22-29 broq=620) BLOOD UREA NITROGEN 15 mg/dL 7-21 (BEAKER) (test vcty=625) CREATININE (BEAKER) (test 1.04 mg/dL 0.57-1.25 rkpz=128) GLUCOSE RANDOM (BEAKER) 92 mg/dL 70-105 (test bgyy=328) CALCIUM (BEAKER) (test 9.9 mg/dL 8.4-10.2 hnfk=725) EGFR (BEAKER) (test 52 mL/min/1.73 sq m ESTIMATED GFR IS NOT qezc=4499) ACCURATE CREATININE CLEARANCE IN PREDICTING GLOMERULAR FILTRATION RATE. ESTIMATED GFR IS NOT APPLICABLE FOR DIALYSIS PATIENTS. CBC W/PLT COUNT & AUTO [id number] 04:21:00 Test Item Value Reference Range Comments WHITE BLOOD CELL COUNT (BEAKER) (test apnz=802) 6.7 K/ L 3.5-10.5 RED BLOOD CELL COUNT (BEAKER) (test xahy=109) 3.53 M/ L 3.93-5.22 HEMOGLOBIN (BEAKER) (test umwm=304) 9.3 GM/DL 11.2-15.7 HEMATOCRIT (BEAKER) (test jodz=910) 31.0 % 34.1-44.9 MEAN CORPUSCULAR VOLUME (BEAKER) (test vpmz=431) 87.8 fL 79.4-94.8 MEAN CORPUSCULAR HEMOGLOBIN (BEAKER) (test 26.3 pg 25.6-32.2 nxii=228) MEAN CORPUSCULAR HEMOGLOBIN CONC (BEAKER) (test 30.0 GM/DL 32.2-35.5 zzan=750) RED CELL DISTRIBUTION WIDTH (BEAKER) (test 14.6 % 11.7-14.4 hiop=221) PLATELET COUNT (BEAKER) (test fwhi=966) 208 K/CU MM 150-450 MEAN PLATELET VOLUME (BEAKER) (test ypku=997) 12.6 fL 9.4-12.3 NUCLEATED RED BLOOD CELLS (BEAKER) (test 0 /100 WBC 0-0 igci=097) NEUTROPHILS RELATIVE PERCENT (BEAKER) (test 67 % wvjp=779) LYMPHOCYTES RELATIVE PERCENT (BEAKER) (test 20 % afpa=819) MONOCYTES RELATIVE PERCENT (BEAKER) (test 10 % iqbh=181) EOSINOPHILS RELATIVE PERCENT (BEAKER) (test 2 % ndyx=918) BASOPHILS RELATIVE PERCENT (BEAKER) (test 0 % tkdm=259) NEUTROPHILS ABSOLUTE COUNT (BEAKER) (test 4.52 K/ L 1.56-6.13 xmou=844) LYMPHOCYTES ABSOLUTE COUNT (BEAKER) (test 1.34 K/ L 1.18-3.74 axuf=964) MONOCYTES ABSOLUTE COUNT (BEAKER) (test 0.66 K/ L 0.24-0.36 ealq=650) EOSINOPHILS ABSOLUTE COUNT (BEAKER) (test 0.13 K/ L 0.04-0.36 kbqr=563) BASOPHILS ABSOLUTE COUNT (BEAKER) (test 0.03 K/ L 0.01-0.08 dztq=820) IMMATURE GRANULOCYTES-RELATIVE PERCENT (BEAKER) 1 % 0-1 (test rvzc=8812) URINALYSIS W/ REFLEX URINE [id number] 12:55:00 Test Item Value Reference Range Comments COLOR (BEAKER) (test cmib=745) Yellow CLARITY (BEAKER) (test vpyy=866) Clear SPECIFIC GRAVITY UA (BEAKER) (test imel=750) 1.010 1.001-1.035 PH UA (BEAKER) (test stqb=620) 5.5 5.0-8.0 PROTEIN UA (BEAKER) (test kban=199) Negative Negative GLUCOSE UA (BEAKER) (test ybbe=454) Negative Negative KETONES UA (BEAKER) (test zlwj=992) Negative Negative BILIRUBIN UA (BEAKER) (test gbgb=363) Negative Negative BLOOD UA (BEAKER) (test fzrr=517) Negative Negative NITRITE UA (BEAKER) (test nmki=152) Negative Negative LEUKOCYTE ESTERASE UA (BEAKER) (test zvsx=230) Negative Negative UROBILINOGEN UA (BEAKER) (test anpp=255) 0.2 mg/dL 0.2-1.0 RBC UA (BEAKER) (test hflg=124) < /HPF WBC UA (BEAKER) (test cyaq=098) 1 /HPF MUCUS (BEAKER) (test anwv=5611) Rare SQUAMOUS EPITHELIAL (BEAKER) (test sysd=935) 1 /HPF HYALINE CASTS (BEAKER) (test ilrf=650) 2 /LPF SOURCE(BEAKER) (test gjyh=5013) [id number] 05:52:00 Test Item Value Reference Range Comments MAGNESIUM (BEAKER) (test lhik=221) 2.1 mg/dL 1.6-2.6 BASIC METABOLIC [id number] 05:52:00 Test Item Value Reference Range Comments SODIUM (BEAKER) (test 137 meq/L 136-145 mexf=065) POTASSIUM (BEAKER) (test 3.5 meq/L 3.5-5.1 ndcc=119) CHLORIDE (BEAKER) (test 98 meq/L 98-107 npbl=358) CO2 (BEAKER) (test 28 meq/L 22-29 qjxg=850) BLOOD UREA NITROGEN 15 mg/dL 7-21 (BEAKER) (test zisi=626) CREATININE (BEAKER) (test 1.03 mg/dL 0.57-1.25 raiy=758) GLUCOSE RANDOM (BEAKER) 97 mg/dL 70-105 (test dtpf=607) CALCIUM (BEAKER) (test 9.8 mg/dL 8.4-10.2 pale=060) EGFR (BEAKER) (test 53 mL/min/1.73 sq m ESTIMATED GFR IS NOT lgfm=0135) ACCURATE CREATININE CLEARANCE IN PREDICTING GLOMERULAR FILTRATION RATE. ESTIMATED GFR IS NOT APPLICABLE FOR DIALYSIS PATIENTS. CBC W/PLT COUNT & AUTO [id number] 05:33:00 Test Item Value Reference Range Comments WHITE BLOOD CELL COUNT (BEAKER) (test dcjf=025) 5.9 K/ L 3.5-10.5 RED BLOOD CELL COUNT (BEAKER) (test mfnw=981) 3.83 M/ L 3.93-5.22 HEMOGLOBIN (BEAKER) (test wbhe=970) 10.2 GM/DL 11.2-15.7 HEMATOCRIT (BEAKER) (test exmz=017) 33.5 % 34.1-44.9 MEAN CORPUSCULAR VOLUME (BEAKER) (test szby=619) 87.5 fL 79.4-94.8 MEAN CORPUSCULAR HEMOGLOBIN (BEAKER) (test 26.6 pg 25.6-32.2 hlbg=919) MEAN CORPUSCULAR HEMOGLOBIN CONC (BEAKER) (test 30.4 GM/DL 32.2-35.5 olca=426) RED CELL DISTRIBUTION WIDTH (BEAKER) (test 14.6 % 11.7-14.4 lavg=189) PLATELET COUNT (BEAKER) (test ucje=720) 182 K/CU MM 150-450 MEAN PLATELET VOLUME (BEAKER) (test tmma=888) 12.6 fL 9.4-12.3 NUCLEATED RED BLOOD CELLS (BEAKER) (test 0 /100 WBC 0-0 jxxx=628) NEUTROPHILS RELATIVE PERCENT (BEAKER) (test 67 % wmrj=396) LYMPHOCYTES RELATIVE PERCENT (BEAKER) (test 20 % ahbx=703) MONOCYTES RELATIVE PERCENT (BEAKER) (test 8 % cdxe=944) EOSINOPHILS RELATIVE PERCENT (BEAKER) (test 3 % retw=471) BASOPHILS RELATIVE PERCENT (BEAKER) (test 1 % agxi=310) NEUTROPHILS ABSOLUTE COUNT (BEAKER) (test 3.99 K/ L 1.56-6.13 vwtz=605) LYMPHOCYTES ABSOLUTE COUNT (BEAKER) (test 1.20 K/ L 1.18-3.74 fkgf=639) MONOCYTES ABSOLUTE COUNT (BEAKER) (test 0.49 K/ L 0.24-0.36 qavo=149) EOSINOPHILS ABSOLUTE COUNT (BEAKER) (test 0.15 K/ L 0.04-0.36 jtnd=880) BASOPHILS ABSOLUTE COUNT (BEAKER) (test 0.04 K/ L 0.01-0.08 ljga=086) IMMATURE GRANULOCYTES-RELATIVE PERCENT (BEAKER) 1 % 0-1 (test wbtu=3547) VITAMIN B12 AND [id number] 06:37:00 Test Item Value Reference Range Comments VITAMIN B12 (BEAKER) (test axoq=292) 460 pg/mL 213-816 FOLATE (BEAKER) (test nxjk=248) 4.2 ng/mL >=7.0 TSH/FREE T4 IF [id number] 06:22:00 Test Item Value Reference Range Comments THYROID STIMULATING HORMONE (BEAKER) (test 1.37 uIU/mL 0.35-4.94 oysi=556) [id number] 06:16:00 Test Item Value Reference Range Comments PHOSPHORUS (BEAKER) (test fjxr=265) 3.7 mg/dL 2.3-4.7 [id number] 06:16:00 Test Item Value Reference Range Comments MAGNESIUM (BEAKER) (test sgvt=110) 1.9 mg/dL 1.6-2.6 BASIC METABOLIC [id number] 06:16:00 Test Item Value Reference Range Comments SODIUM (BEAKER) (test 135 meq/L 136-145 ieji=370) POTASSIUM (BEAKER) (test 3.6 meq/L 3.5-5.1 qkyg=065) CHLORIDE (BEAKER) (test 100 meq/L 98-107 mcih=066) CO2 (BEAKER) (test 25 meq/L 22-29 zjpo=657) BLOOD UREA NITROGEN 16 mg/dL 7-21 (BEAKER) (test mkli=384) CREATININE (BEAKER) (test 0.89 mg/dL 0.57-1.25 msmp=043) GLUCOSE RANDOM (BEAKER) 94 mg/dL 70-105 (test widh=889) CALCIUM (BEAKER) (test 9.2 mg/dL 8.4-10.2 cnjw=711) EGFR (BEAKER) (test 63 mL/min/1.73 sq m ESTIMATED GFR IS NOT vuii=0891) ACCURATE CREATININE CLEARANCE IN PREDICTING GLOMERULAR FILTRATION RATE. ESTIMATED GFR IS NOT APPLICABLE FOR DIALYSIS PATIENTS. LIPID [id number] 06:16:00 Test Item Value Reference Range Comments TRIGLYCERIDES (BEAKER) (test bbdl=185) 71 mg/dL CHOLESTEROL (BEAKER) (test ukis=755) 135 mg/dL HDL CHOLESTEROL (BEAKER) (test qlpp=229) 47 mg/dL LDL CHOLESTEROL CALCULATED (BEAKER) (test 74 mg/dL kbok=782) Triglyceride Reference Range: Low Risk <150 Borderline 150- 199 High Risk 200-499 Very High Risk >=500Cholesterol Reference Range: Low Risk <200 Borderline 200-239 High Risk > 240HDL Cholesterol Reference Range: Low Risk >=60 High Risk <40LDL Cholesterol Reference Range: Optimal <100 Near Optimal 100-129 Borderline 130-159 High 160-189 Very High >=190C-REACTIVE [id number] 06:16:00 Test Item Value Reference Range Comments C-REACTIVE PROTEIN (BEAKER) (test jzku=559) 7.42 mg/dL 0.00-0.50 CBC W/PLT COUNT & AUTO [id number] 05:44:00 Test Item Value Reference Range Comments WHITE BLOOD CELL COUNT (BEAKER) (test hbhq=371) 5.6 K/ L 3.5-10.5 RED BLOOD CELL COUNT (BEAKER) (test puel=941) 3.35 M/ L 3.93-5.22 HEMOGLOBIN (BEAKER) (test ziub=575) 9.0 GM/DL 11.2-15.7 HEMATOCRIT (BEAKER) (test bzrk=955) 29.6 % 34.1-44.9 MEAN CORPUSCULAR VOLUME (BEAKER) (test gzbn=492) 88.4 fL 79.4-94.8 MEAN CORPUSCULAR HEMOGLOBIN (BEAKER) (test 26.9 pg 25.6-32.2 oncm=833) MEAN CORPUSCULAR HEMOGLOBIN CONC (BEAKER) (test 30.4 GM/DL 32.2-35.5 rqpk=547) RED CELL DISTRIBUTION WIDTH (BEAKER) (test 14.6 % 11.7-14.4 jfkt=299) PLATELET COUNT (BEAKER) (test jfou=172) 163 K/CU MM 150-450 MEAN PLATELET VOLUME (BEAKER) (test bfua=818) 12.7 fL 9.4-12.3 NUCLEATED RED BLOOD CELLS (BEAKER) (test 0 /100 WBC 0-0 hxoc=359) NEUTROPHILS RELATIVE PERCENT (BEAKER) (test 67 % kzfh=803) LYMPHOCYTES RELATIVE PERCENT (BEAKER) (test 19 % bryw=936) MONOCYTES RELATIVE PERCENT (BEAKER) (test 10 % rycu=971) EOSINOPHILS RELATIVE PERCENT (BEAKER) (test 2 % afka=471) BASOPHILS RELATIVE PERCENT (BEAKER) (test 1 % lcwg=709) NEUTROPHILS ABSOLUTE COUNT (BEAKER) (test 3.72 K/ L 1.56-6.13 pqyk=619) LYMPHOCYTES ABSOLUTE COUNT (BEAKER) (test 1.08 K/ L 1.18-3.74 skmk=507) MONOCYTES ABSOLUTE COUNT (BEAKER) (test 0.58 K/ L 0.24-0.36 auzj=963) EOSINOPHILS ABSOLUTE COUNT (BEAKER) (test 0.10 K/ L 0.04-0.36 xsxt=162) BASOPHILS ABSOLUTE COUNT (BEAKER) (test 0.03 K/ L 0.01-0.08 wbvo=535) IMMATURE GRANULOCYTES-RELATIVE PERCENT (BEAKER) 1 % 0-1 (test dbcj=2842) URINALYSIS W/ [id number] 20:50:00 Test Item Value Reference Range Comments COLOR (BEAKER) (test tatn=823) Yellow CLARITY (BEAKER) (test ztce=826) Clear SPECIFIC GRAVITY UA (BEAKER) (test vhta=781) 1.015 1.001-1.035 PH UA (BEAKER) (test cqdh=095) 5.5 5.0-8.0 PROTEIN UA (BEAKER) (test seta=636) Negative Negative GLUCOSE UA (BEAKER) (test gowz=308) Negative Negative KETONES UA (BEAKER) (test kkpm=348) Negative Negative BILIRUBIN UA (BEAKER) (test womq=161) Negative Negative BLOOD UA (BEAKER) (test tguc=844) Negative Negative NITRITE UA (BEAKER) (test qtxc=213) Negative Negative LEUKOCYTE ESTERASE UA (BEAKER) (test dqas=956) Large Negative UROBILINOGEN UA (BEAKER) (test gnaw=697) 0.2 mg/dL 0.2-1.0 RBC UA (BEAKER) (test oxui=015) 2 /HPF WBC UA (BEAKER) (test qdtl=049) 46 /HPF BACTERIA (BEAKER) (test pdil=059) Rare MUCUS (BEAKER) (test jxit=7950) Occasional SQUAMOUS EPITHELIAL (BEAKER) (test yhox=989) 4 /HPF HYALINE CASTS (BEAKER) (test haez=017) 4 /LPF SOURCE(BEAKER) (test kmgy=6465) Urine, Voided MR, BRAIN, WITHOUT [id number] 19:27:00Reason for exam:->Ischemic Stroke EvaluationFINAL REPORT Exam: [...] 7:25 PM on 02/07/2018. Signed: Shane Rodriguez MDReport Verified Date/Time: 02/07/2018 19:27:07 Reading Location: [address] Transitional Reading Room MR, MRA, BRAIN, WITHOUT [id number] 19:25:00Reason for exam:->Ischemic Stroke EvaluationFINAL REPORT MRA head and neck without contrast. CLINICAL HISTORY: Stroke. Ischemic stroke evaluation.. COMPARISON: None. TECHNIQUE: Two- and three-dimensional qthj-nd-qauavi MRA images of the intra- and extracranial [...] vessel occlusion or flow-limiting stenosis. Signed: Shane Rodriguezort Verified Date/Time:02/07/2018 19:25:57 Reading Location: [address] Transitional Reading Room MR, MRA, NECK, WITHOUT IV [id number] 19:25:00Reason for exam:->Ischemic Stroke EvaluationFINAL REPORT MRA head and neck without contrast. CLINICAL HISTORY: Stroke. Ischemic stroke evaluation.. COMPARISON: None. TECHNIQUE: Two- and three-dimensional mjfy-gp-gkostm MRA images of the intra- and extracranial [...] occlusion or flow-limiting stenosis. Signed: Shane Rodriguez Verified Date/Time:02/07/2018 19:25:57 Reading Location: [address] Reading Room HEMOGLOBIN [id number] 12:15:00 Test Item Value Reference Range Comments HEMOGLOBIN A1C (BEAKER) (test pcow=156) 6.0 % 4.3-6.1 TSH/FREE T4 IF [id number] 12:13:00 Test Item Value Reference Range Comments THYROID STIMULATING HORMONE (BEAKER) (test 1.43 uIU/mL 0.35-4.94 swpc=803) LIPID [id number] 08:53:00 Test Item Value Reference Range Comments TRIGLYCERIDES (BEAKER) (test qaya=343) 67 mg/dL CHOLESTEROL (BEAKER) (test vqio=076) 142 mg/dL HDL CHOLESTEROL (BEAKER) (test neba=795) 48 mg/dL LDL CHOLESTEROL CALCULATED (BEAKER) (test 81 mg/dL luwh=602) Triglyceride Reference Range: Low Risk <150 Borderline 150- 199 High Risk 200-499 Very High Risk >=500Cholesterol Reference Range: Low Risk <200 Borderline 200-239 High Risk > 240HDL Cholesterol Reference Range: Low Risk >=60 High Risk <40LDL Cholesterol Reference Range: Optimal <100 Near Optimal 100-129 Borderline 130-159 High 160-189 Very High >=190BASIC METABOLIC [id number] 08:53:00 Test Item Value Reference Range Comments SODIUM (BEAKER) (test 135 meq/L 136-145 wxqn=269) POTASSIUM (BEAKER) (test 3.6 meq/L 3.5-5.1 vuno=832) CHLORIDE (BEAKER) (test 101 meq/L 98-107 wzhp=416) CO2 (BEAKER) (test 25 meq/L 22-29 tigz=364) BLOOD UREA NITROGEN 15 mg/dL 7-21 (BEAKER) (test mhzv=872) CREATININE (BEAKER) (test 0.86 mg/dL 0.57-1.25 vhkf=255) GLUCOSE RANDOM (BEAKER) 96 mg/dL 70-105 (test umdd=152) CALCIUM (BEAKER) (test 9.2 mg/dL 8.4-10.2 odci=656) EGFR (BEAKER) (test 65 mL/min/1.73 sq m ESTIMATED GFR IS NOT lsug=1790) ACCURATE CREATININE CLEARANCE IN PREDICTING GLOMERULAR FILTRATION RATE. ESTIMATED GFR IS NOT APPLICABLE FOR DIALYSIS PATIENTS. CBC W/PLT COUNT & AUTO [id number] 08:43:00 Test Item Value Reference Range Comments WHITE BLOOD CELL COUNT (BEAKER) (test snwt=108) 5.8 K/ L 3.5-10.5 RED BLOOD CELL COUNT (BEAKER) (test ozfx=014) 3.43 M/ L 3.93-5.22 HEMOGLOBIN (BEAKER) (test jkvo=749) 9.4 GM/DL 11.2-15.7 HEMATOCRIT (BEAKER) (test nydp=566) 30.0 % 34.1-44.9 MEAN CORPUSCULAR VOLUME (BEAKER) (test sldf=936) 87.5 fL 79.4-94.8 MEAN CORPUSCULAR HEMOGLOBIN (BEAKER) (test 27.4 pg 25.6-32.2 ndtd=320) MEAN CORPUSCULAR HEMOGLOBIN CONC (BEAKER) (test 31.3 GM/DL 32.2-35.5 odli=452) RED CELL DISTRIBUTION WIDTH (BEAKER) (test 14.8 % 11.7-14.4 qnjx=494) PLATELET COUNT (BEAKER) (test eovv=957) 166 K/CU MM 150-450 MEAN PLATELET VOLUME (BEAKER) (test qpmx=952) 12.5 fL 9.4-12.3 NUCLEATED RED BLOOD CELLS (BEAKER) (test 0 /100 WBC 0-0 ceih=871) NEUTROPHILS RELATIVE PERCENT (BEAKER) (test 65 % bnnq=894) LYMPHOCYTES RELATIVE PERCENT (BEAKER) (test 19 % ecjs=759) MONOCYTES RELATIVE PERCENT (BEAKER) (test 12 % wdqh=011) EOSINOPHILS RELATIVE PERCENT (BEAKER) (test 2 % rhpn=014) BASOPHILS RELATIVE PERCENT (BEAKER) (test 1 % zqvl=396) NEUTROPHILS ABSOLUTE COUNT (BEAKER) (test 3.77 K/ L 1.56-6.13 ppsa=239) LYMPHOCYTES ABSOLUTE COUNT (BEAKER) (test 1.10 K/ L 1.18-3.74 omhs=058) MONOCYTES ABSOLUTE COUNT (BEAKER) (test 0.72 K/ L 0.24-0.36 kwpa=261) EOSINOPHILS ABSOLUTE COUNT (BEAKER) (test 0.12 K/ L 0.04-0.36 iqoq=969) BASOPHILS ABSOLUTE COUNT (BEAKER) (test 0.03 K/ L 0.01-0.08 gaot=180) IMMATURE GRANULOCYTES-RELATIVE PERCENT (BEAKER) 1 % 0-1 (test zmde=7220) TISSUE [id number] 14:20:00Surgical Pathology Report Case: [id number] Authorizing Provider: Carlos Seo MD Collected: 10/21/2017 0837 Ordering Location: [facility] Received: 10/21/2017 0931 PERIOPERATIVE SERVICES Pathologist: Gilbert Anderson MD Specimen: Carotid, Right, RIGHT CAROTID PLAQUE ARTERY, RIGHT CAROTID, ENDARTERECTOMY:CALCIFIC ATHEROSCLEROTIC PLAQUE Signing Pathologist Direct Phone Line: [phone] signed by Gilbert Anderson MD on 2017 at 2:20 [id number]; [id number] stenosisRight carotid plaqueIn saline labeled "carotid, right", description "right carotid plaque" is a 3.5 cm in length x 0.9 cm in diameter michel-white to yellow-ang cylindrical previously incised portion of fibrous tissue. Sectioning reveals focal calcification. Cell Cleaner sections are submitted in cassette A1 for decalcification. DB/ [id number] 05:30:00 Test Item Value Reference Range Comments MAGNESIUM (BEAKER) (test rvxs=187) 1.7 mg/dL 1.6-2.6 [facility] resultsBASIC METABOLIC [id number] 05:30: 00 Test Item Value Reference Range Comments SODIUM (BEAKER) (test 138 meq/L 136-145 vbfz=146) POTASSIUM (BEAKER) (test 3.7 meq/L 3.5-5.1 adsp=682) CHLORIDE (BEAKER) (test 103 meq/L 98-107 euok=547) CO2 (BEAKER) (test 28 meq/L 22-29 hazz=659) BLOOD UREA NITROGEN 11 mg/dL 7-21 (BEAKER) (test ksfp=124) CREATININE (BEAKER) (test 0.95 mg/dL 0.57-1.25 zggh=577) GLUCOSE RANDOM (BEAKER) 89 mg/dL 70-105 (test izdg=623) CALCIUM (BEAKER) (test 9.0 mg/dL 8.4-10.2 egnx=246) EGFR (BEAKER) (test 58 mL/min/1.73 sq m ESTIMATED GFR IS NOT dqrn=9605) ACCURATE CREATININE CLEARANCE IN PREDICTING GLOMERULAR FILTRATION RATE. ESTIMATED GFR IS NOT APPLICABLE FOR DIALYSIS PATIENTS. [facility]Call [facility] with resultsCBC W/PLT COUNT & AUTO [id number] 04:49:00 Test Item Value Reference Range Comments WHITE BLOOD CELL COUNT (BEAKER) (test oyfj=266) 5.6 K/ L 3.5-10.5 RED BLOOD CELL COUNT (BEAKER) (test ukqz=522) 3.59 M/ L 3.93-5.22 HEMOGLOBIN (BEAKER) (test uonk=192) 10.1 GM/DL 11.2-15.7 HEMATOCRIT (BEAKER) (test lmvi=462) 32.8 % 34.1-44.9 MEAN CORPUSCULAR VOLUME (BEAKER) (test nehd=761) 91.4 fL 79.4-94.8 MEAN CORPUSCULAR HEMOGLOBIN (BEAKER) (test 28.1 pg 25.6-32.2 yzml=107) MEAN CORPUSCULAR HEMOGLOBIN CONC (BEAKER) (test 30.8 GM/DL 32.2-35.5 oapn=094) RED CELL DISTRIBUTION WIDTH (BEAKER) (test 15.2 % 11.7-14.4 uqtt=729) PLATELET COUNT (BEAKER) (test cxfh=876) 113 K/CU MM 150-450 MEAN PLATELET VOLUME (BEAKER) (test htqd=304) 13.5 fL 9.4-12.3 NUCLEATED RED BLOOD CELLS (BEAKER) (test 0 /100 WBC 0-0 zifr=177) NEUTROPHILS RELATIVE PERCENT (BEAKER) (test 63 % cwlu=483) LYMPHOCYTES RELATIVE PERCENT (BEAKER) (test 23 % rxnl=974) MONOCYTES RELATIVE PERCENT (BEAKER) (test 9 % ybcw=421) EOSINOPHILS RELATIVE PERCENT (BEAKER) (test 4 % mbbb=324) BASOPHILS RELATIVE PERCENT (BEAKER) (test 1 % qqwr=361) NEUTROPHILS ABSOLUTE COUNT (BEAKER) (test 3.50 K/ L 1.56-6.13 klwh=696) LYMPHOCYTES ABSOLUTE COUNT (BEAKER) (test 1.29 K/ L 1.18-3.74 nine=859) MONOCYTES ABSOLUTE COUNT (BEAKER) (test 0.52 K/ L 0.24-0.36 yvgr=709) EOSINOPHILS ABSOLUTE COUNT (BEAKER) (test 0.23 K/ L 0.04-0.36 zyzy=790) BASOPHILS ABSOLUTE COUNT (BEAKER) (test 0.03 K/ L 0.01-0.08 iydc=807) IMMATURE GRANULOCYTES-RELATIVE PERCENT (BEAKER) 0 % 0-1 (test tuae=9871) BASIC METABOLIC [id number] 05:38:00 Test Item Value Reference Range Comments SODIUM (BEAKER) (test 138 meq/L 136-145 ukoc=987) POTASSIUM (BEAKER) (test 3.7 meq/L 3.5-5.1 ggiw=297) CHLORIDE (BEAKER) (test 107 meq/L 98-107 crxw=044) CO2 (BEAKER) (test 25 meq/L 22-29 snby=791) BLOOD UREA NITROGEN 14 mg/dL 7-21 (BEAKER) (test jvgg=712) CREATININE (BEAKER) (test 0.76 mg/dL 0.57-1.25 qygi=950) GLUCOSE RANDOM (BEAKER) 88 mg/dL 70-105 (test zqxv=702) CALCIUM (BEAKER) (test 8.5 mg/dL 8.4-10.2 pnrx=320) EGFR (BEAKER) (test 75 mL/min/1.73 sq m ESTIMATED GFR IS NOT yilc=5724) ACCURATE CREATININE CLEARANCE IN PREDICTING GLOMERULAR FILTRATION RATE. ESTIMATED GFR IS NOT APPLICABLE FOR DIALYSIS PATIENTS. CBC W/PLT COUNT & AUTO [id number] 05:13:00 Test Item Value Reference Range Comments WHITE BLOOD CELL COUNT (BEAKER) (test gurj=415) 3.8 K/ L 3.5-10.5 RED BLOOD CELL COUNT (BEAKER) (test wyea=320) 3.40 M/ L 3.93-5.22 HEMOGLOBIN (BEAKER) (test umdh=043) 9.6 GM/DL 11.2-15.7 HEMATOCRIT (BEAKER) (test ftmv=271) 31.3 % 34.1-44.9 MEAN CORPUSCULAR VOLUME (BEAKER) (test emps=774) 92.1 fL 79.4-94.8 MEAN CORPUSCULAR HEMOGLOBIN (BEAKER) (test 28.2 pg 25.6-32.2 cxof=117) MEAN CORPUSCULAR HEMOGLOBIN CONC (BEAKER) (test 30.7 GM/DL 32.2-35.5 jwzf=617) RED CELL DISTRIBUTION WIDTH (BEAKER) (test 15.4 % 11.7-14.4 nemk=584) PLATELET COUNT (BEAKER) (test aewq=542) 91 K/CU MM 150-450 MEAN PLATELET VOLUME (BEAKER) (test zogh=964) 13.6 fL 9.4-12.3 NUCLEATED RED BLOOD CELLS (BEAKER) (test 0 /100 WBC 0-0 aqgi=304) NEUTROPHILS RELATIVE PERCENT (BEAKER) (test 64 % yfdd=213) LYMPHOCYTES RELATIVE PERCENT (BEAKER) (test 23 % tejl=549) MONOCYTES RELATIVE PERCENT (BEAKER) (test 8 % oejo=990) EOSINOPHILS RELATIVE PERCENT (BEAKER) (test 4 % nauu=421) BASOPHILS RELATIVE PERCENT (BEAKER) (test 0 % jbpo=362) NEUTROPHILS ABSOLUTE COUNT (BEAKER) (test 2.45 K/ L 1.56-6.13 yyui=178) LYMPHOCYTES ABSOLUTE COUNT (BEAKER) (test 0.89 K/ L 1.18-3.74 hxdh=398) MONOCYTES ABSOLUTE COUNT (BEAKER) (test aosw=970) 0.30 K/ L 0.24-0.36 EOSINOPHILS ABSOLUTE COUNT (BEAKER) (test 0.14 K/ L 0.04-0.36 pdky=525) BASOPHILS ABSOLUTE COUNT (BEAKER) (test rvqz=832) 0.01 K/ L 0.01-0.08 IMMATURE GRANULOCYTES-RELATIVE PERCENT (BEAKER) 1 % 0-1 (test ffha=1430) GLUCOSE-STAT [id number] 09:53:00 Test Item Value Reference Range Comments GLUCOSE RANDOM (BEAKER) (test zukp=462) 105 mg/dL 70-110 HGB/HCT (H&H) - STAT [id number] 09:53:00 Test Item Value Reference Range Comments HEMOGLOBIN (BEAKER) (test usro=737) 11.2 g/dL 12.0-15.0 HEMATOCRIT (BEAKER) (test anto=607) 33.0 % 36.0-45.0 BASIC METABOLIC [id number] 07:45:00 Test Item Value Reference Range Comments SODIUM (BEAKER) (test 136 meq/L 136-145 rvqx=839) POTASSIUM (BEAKER) (test 3.5 meq/L 3.5-5.1 fhik=600) CHLORIDE (BEAKER) (test 107 meq/L 98-107 zita=075) CO2 (BEAKER) (test 21 meq/L 22-29 bbuu=282) BLOOD UREA NITROGEN 17 mg/dL 7-21 (BEAKER) (test rkdo=411) CREATININE (BEAKER) (test 0.78 mg/dL 0.57-1.25 ckih=914) GLUCOSE RANDOM (BEAKER) 93 mg/dL 70-105 (test ztmi=283) CALCIUM (BEAKER) (test 9.6 mg/dL 8.4-10.2 beaq=200) EGFR (BEAKER) (test 73 mL/min/1.73 sq m ESTIMATED GFR IS NOT vgsw=0791) ACCURATE CREATININE CLEARANCE IN PREDICTING GLOMERULAR FILTRATION RATE. ESTIMATED GFR IS NOT APPLICABLE FOR DIALYSIS PATIENTS. RAD, CHEST, 1 VIEW, NON [id number] 07:29:00Reason for exam:-> baselineReason for exam:->pre opShould [...] changes in the left humerus. Signed: Adriel Crawley MDReport Verified Date/Time: 10/21/2017 07:29:40 Reading Location: [facility] Radiology Reading Room PROTHROMBIN TIME/[id number] 07:23:00 Test Item Value Reference Range Comments PROTIME (BEAKER) (test lnse=587) 13.5 seconds 11.7-14.7 INR (BEAKER) (test wgyd=083) 1.0 <=5.9 RECOMMENDED COUMADIN/WARFARIN INR THERAPY RANGESSTANDARD DOSE: 2.0 - 3.0 Includes: PROPHYLAXIS forvenous thrombosis, systemic embolization; TREATMENT for venous thrombosis and/or pulmonary embolus.HIGH RISK: Target INR is 2.5-3.5 for patients with mechanical heart valves.CBC W/PLT COUNT & AUTO [id number] 10:12:00 Test Item Value Reference Range Comments WHITE BLOOD CELL COUNT (BEAKER) (test jdfm=840) 5.4 K/ L 3.5-10.5 RED BLOOD CELL COUNT (BEAKER) (test vnfd=404) 4.39 M/ L 3.93-5.22 HEMOGLOBIN (BEAKER) (test iwjs=357) 12.2 GM/DL 11.2-15.7 HEMATOCRIT (BEAKER) (test bkmt=133) 39.1 % 34.1-44.9 MEAN CORPUSCULAR VOLUME (BEAKER) (test dtyw=823) 89.1 fL 79.4-94.8 MEAN CORPUSCULAR HEMOGLOBIN (BEAKER) (test 27.8 pg 25.6-32.2 glgr=693) MEAN CORPUSCULAR HEMOGLOBIN CONC (BEAKER) (test 31.2 GM/DL 32.2-35.5 jiwm=711) RED CELL DISTRIBUTION WIDTH (BEAKER) (test 14.7 % 11.7-14.4 hywy=133) PLATELET COUNT (BEAKER) (test pjeh=935) 151 K/CU MM 150-450 MEAN PLATELET VOLUME (BEAKER) (test dloi=945) 13.0 fL 9.4-12.3 NUCLEATED RED BLOOD CELLS (BEAKER) (test 0 /100 WBC 0-0 dqhj=055) NEUTROPHILS RELATIVE PERCENT (BEAKER) (test 72 % orrk=433) LYMPHOCYTES RELATIVE PERCENT (BEAKER) (test 18 % teob=354) MONOCYTES RELATIVE PERCENT (BEAKER) (test 7 % uruc=610) EOSINOPHILS RELATIVE PERCENT (BEAKER) (test 2 % toin=946) BASOPHILS RELATIVE PERCENT (BEAKER) (test 1 % pvwk=403) NEUTROPHILS ABSOLUTE COUNT (BEAKER) (test 3.89 K/ L 1.56-6.13 niug=451) LYMPHOCYTES ABSOLUTE COUNT (BEAKER) (test 0.99 K/ L 1.18-3.74 rylq=441) MONOCYTES ABSOLUTE COUNT (BEAKER) (test 0.37 K/ L 0.24-0.36 syuy=616) EOSINOPHILS ABSOLUTE COUNT (BEAKER) (test 0.08 K/ L 0.04-0.36 neej=232) BASOPHILS ABSOLUTE COUNT (BEAKER) (test 0.03 K/ L 0.01-0.08 bbwp=788) IMMATURE GRANULOCYTES-RELATIVE PERCENT (BEAKER) 1 % 0-1 (test kygk=8812)
--- OUTSIDE RECORDS SUMMARY | 2019-01-26 13:20 | XMS REPORT ---
[...] Status Dosage System Date Date Folic Acid [facility] [address]-78 Active not defined Amiodarone ND 0 Active not defined Plavix [facility] 14751405892 75 MG Orally Active 1 tablet Once a day Nitroglycerin [facility] 46860893854 0.4 MG Active not Sublingual defined Apixaban [facility] [address]-12 Active not defined Lasix [facility] 74924631332 40 MG Orally Active 1 tablet Once a day Tramadol HCl [facility] 45162134485 50 MG Orally Active 1 tablet every 6 hrs as needed Lipitor [facility] 61303571983 40 MG Orally Active 1 tablet Once a day Results No Known Results Immunizations Vaccine Administration Date FluAD Jun 22, 2018 Summary Purpose eClinicalWorks Submission
--- OUTSIDE RECORDS SUMMARY | 2019-01-26 13:20 | XMS REPORT ---
:1945 Author Organization eClinicalWorks Care Team Providers Name Role Phone Rick Miller Provider Role Unavailable Allergies, Adverse Reactions, Alerts Substance Reaction Event Type MORPHINE Info Not Available Drug Allergy Phenergan Info Not Available Drug Allergy Problems Problem Type Condition Code Onset Dates Condition Status Problem Hyperlipidemia E78.5 Active Problem Migraine without status G43.909 Active migrainosus, not intractable, unspecified migraine type Problem Tinnitus of right ear H93.11 Active Problem Medication monitoring encounter Z51.81 Active Problem History of stroke associated with Z86.73 Active blood clotting tendency Problem Unsteady gait R26.81 Active Problem Varicose veins I86.8 Active Problem Osteoarthritis of multiple joints M15.9 Active Problem Depression with anxiety F41.8 Active Problem 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 Assessment Plantar fasciitis of left foot M72.2 Active Assessment Pain in joint, foot, left M25.572 Active Assessment Achilles tendinitis of left lower M76.62 Active extremity Problem Osteoporosis M81.0 Active Problem Vitamin D deficiency E55.9 Active Problem Benign essential HTN I10 Active Problem Atrial fibrillation I48.91 Active Problem Allergic rhinitis J30.9 Active Medications Medication Code Code Instructions Start End Status Dosage System Date Date Tramadol HCl [facility] 25258019258 50 MG Orally Active 1 tablet every 6 hrs as needed Eliquis [facility] [address]-68 Active not defined Folic Acid [facility] [address]-18 Active not defined Lipitor ND 48615516686 40 MG Orally Active 1 tablet Once a day Nitroglycerin [facility] 96525866361 0.4 MG Active not Sublingual defined Atorvastatin [facility] [address]-90 Active not Calcium defined Lasix [facility] 10894249520 40 MG Orally Active 1 tablet Once a day Results No Known Results Summary Purpose eClinicalWorks Submission
--- NOTE | 2019-01-26 13:41 | RAD REPORT ---
EXAM DESCRIPTION: RAD - Chest Single View - 01/26/2019 1:34 pm CLINICAL HISTORY: CHEST PAIN Chest pain. COMPARISON: Chest Pa And Lat (2 Views) dated 10/22/2018; Chest Single View dated 02/06/2018; Chest Pa A nd Lat (2 Views) dated 01/31/2018; Chest Single View dated 01/28/2018 FINDINGS: Portable technique limits examination quality. Mild interstitial pulmonary edema is seen. The heart is mildly enlarged in size. No displaced fractur es.Proximal left humeral prosthesis. IMPRESSION: Mild CHF suspected.
[2019-01-26 13:56] LABS: Absolute Lymphocytes (CBC) 1.3 K/uL (0.7-4.9); Basophils % 1.3 % (0-1.3); Eosinophils % 1.3 % (0-4.4); Hematocrit 27.9 % (36.0-45.0); Lymphocytes % 20.8 % (15.3-44.8); MPV 11.3 fL (7.6-11.3); Monocytes % 9.1 % (3.3-12.3); RBC Red Blood Cell Count 3.81 M/uL (3.86-4.86)
[2019-01-26 13:57] LABS: Protime INR 1.93
[2019-01-26 14:09] LABS: Albumin 3.3 g/dL (3.4-5.0); Bilirubin Direct 0.1 mg/dL (0-0.2); Bilirubin Total 0.5 mg/dL (0.2-1.0); Potassium 4.4 mmol/L (3.5-5.1); Troponin (Emerg Dept Use Only) 0.06 ng/mL (0.0-0.045)
[2019-01-26] MEDS ORDERED: PROPOFOL 200 MG/20 ML VIAL IV ONE (14:20)
[2019-01-26] MEDS ORDERED: FENTANYL CITR 100 MCG/2 ML ONE (14:20)
[2019-01-26] MEDS ORDERED: NA CHLORIDE 0.9% 1,000 ML ONE (14:20)
[2019-01-26] MEDS ORDERED: DOPAMINE/D5W 400 MG/250 ML BAG IV ONE (14:47)
[2019-01-26] MEDS ORDERED: ACETAMINOPHEN 500 MG TAB ONE (14:58)
--- NOTE | 2019-01-26 15:30 | EDPHYS ---
Physician Documentation [facility] Name: Jenniffer Harden Age: 73 yrs Sex: Female : 1945 Arrival Date: 01/26/2019 Time: 13:16 Bed 3 Private MD: ED Physician Joni Meléndez HPI: 01/26 17:19 This 73 yrs old Female presents to ER via EMS with complaints of Chest Pain > kdr 31 y/o. 17:19 The patient or guardian reports chest pain that is located primarily in the substernal kdr area, anterior chest wall, bilaterally. Onset: at an unknown time. The pain does not radiate. Associated signs and symptoms: The patient has no apparent associated signs or symptoms. Historical: - Allergies: 13:25 Morphine; ca1 13:25 PENICILLINS; ca1 13:25 Phenergan; ca1 - Home Meds: 13:25 aspirin 81 mg Oral TbEC 1 tab once daily [Active]; Eliquis oral oral [Active]; Lasix ca1 Oral [Active]; Avapro Oral [Active]; Lipitor Oral [Active]; - PMHx: 13:25 Arthritis; Atrial Fib; Hypertension; mitral valve prolapse; Myocardial infarction; ca1 Osteoporosis; - PSHx: 13:25 hip surgery; Carotid surgery; hand surgery; ca1 - Immunization history:: Adult Immunizations up to date, Flu vaccine is up to date. - Social history:: Smoking status: Patient/guardian denies using tobacco. - Ebola Screening: : Patient negative for fever greater than or equal to 101.5 degrees Fahrenheit, and additional compatible Ebola Virus Disease symptoms Patient denies exposure to infectious person Patient denies travel to an Ebola-affected area in the 21 days before illness onset. ROS: 17:28 Constitutional: Negative for fever, chills, and weight loss, Eyes: Negative for injury, kdr pain, redness, and discharge, ENT: Negative for injury, pain, and discharge, Neck: Negative for injury, pain, and swelling, Abdomen/GI: Negative for abdominal pain, nausea, vomiting, diarrhea, and constipation, Back: Negative for injury and pain, : Negative for injury, bleeding, discharge, and swelling, MS/Extremity: Negative for injury and deformity, Skin: Negative for injury, rash, and discoloration, Neuro: Negative for headache, weakness, numbness, tingling, and seizure activity. 17:28 Cardiovascular: Positive for chest pain, palpitations, Negative for edema, orthopnea. Exam: 17:28 Constitutional: This is a well developed, well nourished patient who is awake, alert, kdr and in no acute distress. Head/Face: Normocephalic, atraumatic. Eyes: Pupils equal round and reactive to light, extra-ocular motions intact. Lids and lashes normal. Conjunctiva and sclera are non-icteric and not injected. Cornea within normal limits. Periorbital areas with no swelling, redness, or edema. Neck: Trachea midline, no thyromegaly or masses palpated, and no cervical lymphadenopathy. Supple, full range of motion without nuchal rigidity, or vertebral point tenderness. No Meningismus. Chest/axilla: Normal chest wall appearance and motion. Nontender with no deformity. No lesions are appreciated. Respiratory: Lungs have equal breath sounds bilaterally, clear to auscultation and percussion. No rales, rhonchi or wheezes noted. No increased work of breathing, no retractions or nasal flaring. Abdomen/GI: Soft, non-tender, with normal bowel sounds. No distension or tympany. No guarding or rebound. No evidence of tenderness throughout. Back: No spinal tenderness. No costovertebral tenderness. Full range of motion. Skin: Warm, dry with normal turgor. Normal color with no rashes, no lesions, and no evidence of cellulitis. MS/ Extremity: Pulses equal, no cyanosis. Neurovascular intact. Full, normal range of motion. Neuro: Awake and alert, GCS 15, oriented to person, place, time, and situation. Cranial nerves II-XII grossly intact. Motor strength 5/5 in all extremities. Sensory grossly intact. Cerebellar exam normal. Normal gait. Psych: Awake, alert, with orientation to person, place and time. Behavior, mood, and affect are within normal limits. 17:28 Cardiovascular: Rate: tachycardic, Rhythm: irregularly irregular, Pulses: no pulse deficits are appreciated, Heart sounds: normal, Edema: is not appreciated. Vital Signs: 13:22 BP 106 / 83; Pulse 150; Resp 18; Temp 97.9; Pulse Ox 100% on R/A; mg2 13:25 Weight 78.02 kg (R); Height 5 ft. 2 in. (157.48 cm) (R); Pain 4/10; ca1 13:58 BP 97 / 77; Pulse 144; Resp 20; Pulse Ox 99% on 2 lpm NC; ca1 14:13 BP 107 / 49; Pulse 149; Resp 18; Pulse Ox 100% on R/A; hb 14:50 BP 105 / 66; Pulse 77; Resp 15; Pulse Ox 100% ; Pain 0/10; hb 15:30 BP 116 / 72; Pulse 68; Resp 15; Pulse Ox 97% ; hb 16:30 BP 128 / 69; Pulse 68; Resp 15; Pulse Ox 96% on R/A; hb 17:26 BP 114 / 61; Pulse 67; Resp 14; Pulse Ox 98% on R/A; hb 18:15 BP 119 / 76; Pulse 66; Resp 16; Temp 97.8; Pulse Ox 100% on R/A; Pain 0/10; hb 18:45 BP 125 / 76; Pulse 67; Resp 18; Pulse Ox 95% on R/A; hb 19:35 BP 114 / 58; Pulse 65; Resp 20 S; Pulse Ox 97% on R/A; Pain 0/10; jd3 13:25 Body Mass Index 31.46 (78.02 kg, 157.48 cm) ca1 MDM: 15:30 Patient medically screened. kdr 17:28 Data reviewed: vital signs, nurses notes, lab test result(s), EKG, radiologic studies. kdr Counseling: I had a detailed discussion with the patient and/or guardian regarding: the historical points, exam findings, and any diagnostic results supporting the discharge/admit diagnosis, lab results, radiology results, the need for further work-up and treatment in the hospital. 01/26 13:21 Order name: Basic Metabolic Panel mg2 01/26 13:21 Order name: CBC with Diff; Complete Time: 15:20 mg2 01/26 13:21 Order name: LFT's; Complete Time: 15:20 mg2 01/26 13:21 Order name: Magnesium; Complete Time: 15:20 mg2 01/26 13:21 Order name: NT PRO-BNP; Complete Time: 15:20 mg2 01/26 13:21 Order name: PT-INR; Complete Time: 15:20 mg2 01/26 13:21 Order name: Troponin (emerg Dept Use Only); Complete Time: 15:20 mg2 01/26 13:21 Order name: XRAY Chest (1 view); Complete Time: 15:20 mg2 01/26 13:21 Order name: EKG; Complete Time: 13:23 mg2 01/26 13:22 Order name: Basic Metabolic Panel; Complete Time: 15:20 EDMS 01/26 16:58 Order name: Phosphorus EDMS 01/26 13:21 Order name: Cardiac monitoring; Complete Time: 13:21 mg2 01/26 13:21 Order name: EKG - Nurse/Tech; Complete Time: 13: mg2 01/26 13:21 Order name: IV Saline Lock; Complete Time: 13: mg2 01/26 13:21 Order name: Labs collected and sent; Complete Time: 13: mg2 01/26 13:21 Order name: O2 Per Protocol; Complete Time: 13: mg2 01/26 13:21 Order name: O2 Sat Monitoring; Complete Time: 13: mg2 01/26 15:23 Order name: EKG Electrocardiogram; Complete Time: 15:29 EDMS Administered Medications: 14:16 Drug: fentaNYL (PF) 50 mcg {Note: Administered by Dr. Meléndez.} Route: IVP; Site: right hb antecubital; 14:35 Follow up: Response: No adverse reaction hb 14:17 Drug: Propofol 100 mg {Note: Administered by Dr. Meléndez.} Route: IVP; Site: right hb antecubital; 14:38 Follow up: Response: No adverse reaction hb 14:35 Drug: Dopamine drip 5 mcg/kg/min - (DOPamine 400 mg, D5W 250 ml) Route: IV; Rate: hb calculated rate; Site: left antecubital; 14:50 Follow up: Response: No adverse reaction; IV Status: IV converted to saline lock hb Disposition: 01/26/19 15:30 Hospitalization ordered by Thien Sims for Observation. Preliminary diagnosis are Atrial fibrillation and flutter, Hypotension, Anemia, unspecified. - Bed requested for Telemetry/MedSurg (observation). - Status is Observation. jd3 - Condition is Fair. - Problem is an acute exacerbation. - Symptoms have improved. UTI on Admission? No Signatures: Dispatcher [employer] EDMS Vicky Crespo RN RN sv Rittger, Kevin, MD MD kdr Garcia, Cindy, RN RN cg Susy Mario, RN RN Harman Vila RN RN jd3 Jd Wolfe, RN RN [facility] [place] Nya Morris RN RN ca1 Corrections: (The following items were deleted from the chart) 18:06 15:30 Hospitalization Ordered by Thien Sims MD for Observation. Preliminary diagnosis cg is Atrial fibrillation and flutter; Hypotension; Anemia, unspecified. Bed requested for Telemetry/MedSurg (observation). Status is Observation. Condition is Fair. Problem is an acute exacerbation. Symptoms have improved. UTI on Admission? No. kdr 20:34 18:06 01/26/2019 15:30 Hospitalization Ordered by Thien Sims MD for Observation. jd3 Preliminary diagnosis is Atrial fibrillation and flutter; Hypotension; Anemia, unspecified. Bed requested for Telemetry/MedSurg (observation). Status is Observation. Condition is Fair. Problem is an acute exacerbation. Symptoms have improved. UTI on Admission? No. cg
--- NOTE | 2019-01-26 15:30 | ER ---
Nurse's Notes [facility] Name: Jenniffer Harden Age: 73 yrs Sex: Female : 1945 Arrival Date: 01/26/2019 Time: 13:16 Bed 3 Private MD: Diagnosis: Atrial fibrillation and flutter;Hypotension;Anemia, unspecified Presentation: 01/26 13:16 Presenting complaint: EMS states: pt has chest discomfort described as pressure mid ca1 chest for 8 days now, intermittent. Pt has Hx of A-fib with cardioversion 3x 3 years ago .EKG shows A-fib with RVR with S/S. Also HX of TIA x 8, last episode was few months ago. She has L sided weakness with previous CVA. Pt takes Eliquis. Transition of care: patient was not received from another setting of care. Onset of symptoms was January 26, 2019. Risk Assessment: Do you want to hurt yourself or someone else? Patient reports no desire to harm self or others. Initial Sepsis Screen: Does the patient meet any 2 criteria? No. Patient's initial sepsis screen is negative. Does the patient have a suspected source of infection? No. Patient's initial sepsis screen is negative. Care prior to arrival: Medication(s) given:. Care prior to arrival: IV initiated. 20 GA, in the right antecubital area, Glucose check: 96. 13:16 Method Of Arrival: EMS: [facility] ca1 13:16 Acuity: RUTHIE 2 ca1 Triage Assessment: 13:25 General: Appears in no apparent distress. comfortable, Behavior is calm, cooperative, ca1 appropriate for age. Pain: Complains of pain in chest Pain does not radiate. Pain currently is 4 out of 10 on a pain scale. Quality of pain is described as pressure, Pain began 8 DAYS AGO Is intermittent. Cardiovascular: Heart tones S1 S2 present Capillary refill < 3 seconds Patient's skin is warm and dry. Pulses are all present. Rhythm is atrial fibrillation with rapid ventricular response. Historical: - Allergies: 13:25 Morphine; ca1 13:25 PENICILLINS; ca1 13:25 Phenergan; ca1 - Home Meds: 13:25 aspirin 81 mg Oral TbEC 1 tab once daily [Active]; Eliquis oral oral [Active]; Lasix ca1 Oral [Active]; Avapro Oral [Active]; Lipitor Oral [Active]; - PMHx: 13:25 Arthritis; Atrial Fib; Hypertension; mitral valve prolapse; Myocardial infarction; ca1 Osteoporosis; - PSHx: 13:25 hip surgery; Carotid surgery; hand surgery; ca1 - Immunization history:: Adult Immunizations up to date, Flu vaccine is up to date. - Social history:: Smoking status: Patient/guardian denies using tobacco. - Ebola Screening: : Patient negative for fever greater than or equal to 101.5 degrees Fahrenheit, and additional compatible Ebola Virus Disease symptoms Patient denies exposure to infectious person Patient denies travel to an Ebola-affected area in the 21 days before illness onset. Screenin:29 Abuse screen: Denies threats or abuse. Denies injuries from another. Nutritional ca1 screening: No deficits noted. Tuberculosis screening: No symptoms or risk factors identified. Fall Risk Secondary diagnosis (15 points) TIA, CVA, Assessment: 13:30 General: Appears in no apparent distress. comfortable, Behavior is calm, cooperative, ca1 appropriate for age. Pain: Complains of pain in chest Pain does not radiate. Pain currently is 4 out of 10 on a pain scale. Quality of pain is described as pressure, Pain began 8 DAYS AGO Is intermittent. Neuro: Level of Consciousness is awake, alert, obeys commands, Oriented to person, place, time, situation, Reports headache. Cardiovascular: Heart tones S1 S2 present Capillary refill < 3 seconds Patient's skin is warm and dry. Pulses are all present. Rhythm is atrial fibrillation with rapid ventricular response. Respiratory: Airway is patent Respiratory effort is even, unlabored, Respiratory pattern is regular, symmetrical, Breath sounds are clear bilaterally. GI: Abdomen is round non-distended, Bowel sounds present X 4 quads. Abd is soft and non tender X 4 quads. : No deficits noted. No signs and/or symptoms were reported regarding the genitourinary system. EENT: No deficits noted. No signs and/or symptoms were reported regarding the EENT system. Derm: Skin is intact, is healthy with good turgor, Skin is pink, warm \T\ dry. Musculoskeletal: Circulation, motion, and sensation intact. Capillary refill < 3 seconds, Range of motion: intact in all extremities. 14:10 Reassessment: Conscious sedation started with Dr. Meléndez at bedside, see conscious hb sedation flowsheet. 15:00 Reassessment: Patient appears in no apparent distress at this time. Patient and/or hb family updated on plan of care and expected duration. Pain level reassessed. Patient is alert, oriented x 3, equal unlabored respirations, skin warm/dry/pink. Family at bedside. 16:00 Reassessment: Patient appears in no apparent distress at this time. Patient and/or hb family updated on plan of care and expected duration. Pain level reassessed. Patient is alert, oriented x 3, equal unlabored respirations, skin warm/dry/pink. Admission ordered, awaiting room assignment at this time. Family remains at bedside. 16:22 Reassessment: Dr. Ulloa at bedside. hb 17:00 Reassessment: Patient appears in no apparent distress at this time. Patient and/or hb family updated on plan of care and expected duration. Pain level reassessed. Patient is alert, oriented x 3, equal unlabored respirations, skin warm/dry/pink. 18:00 Reassessment: Patient appears in no apparent distress at this time. Patient and/or hb family updated on plan of care and expected duration. Pain level reassessed. Patient is alert, oriented x 3, equal unlabored respirations, skin warm/dry/pink. 18:16 Reassessment: Attempted to call report to floor, no answer. hb 18:20 Reassessment: Attempted to call report to floor, no answer. hb 18:25 Reassessment: Attempted to call report to floor, no answer. hb 18:30 Reassessment: Attempted to call report to floor, no answer. hb 18:36 Reassessment: Attempted to call report to floor, per unit sec Blanca, receiving nurse hb is unavailable at this time. Charge nurse Mary RN notified. 18:48 Reassessment: Attempted to call report to floor, no answer. hb 18:56 Reassessment: Attempted to call report to floor, per unit sec Blanca, receiving nurse zhanna unavailable, charge nurse unavailable. Charge nurse Mary RN notified. 19:28 General: Appears in no apparent distress. comfortable, Behavior is calm, cooperative, jd3 appropriate for age. Pain: Denies pain. Neuro: Level of Consciousness is awake, alert, obeys commands, Oriented to person, place, time, situation. Cardiovascular: Denies chest pain, Capillary refill < 3 seconds Thorax Rhythm is irregular. Respiratory: Airway is patent Respiratory effort is even, unlabored, Respiratory pattern is regular, symmetrical. GI: No signs and/or symptoms were reported involving the gastrointestinal system. : No signs and/or symptoms were reported regarding the genitourinary system. EENT: No signs and/or symptoms were reported regarding the EENT system. Derm: Skin is intact, Skin is dry, Skin is normal, Skin temperature is warm. Musculoskeletal: Circulation, motion, and sensation intact. Range of motion: intact in all extremities. 19:38 Reassessment: Patient and/or family updated on plan of care and expected duration. Pain jd3 level reassessed. Patient is alert, oriented x 3, equal unlabored respirations, skin warm/dry/pink. report given to Arian PAINTER. Vital Signs: 13:22 BP 106 / 83; Pulse 150; Resp 18; Temp 97.9; Pulse Ox 100% on R/A; mg2 13:25 Weight 78.02 kg (R); Height 5 ft. 2 in. (157.48 cm) (R); Pain 4/10; ca1 13:58 BP 97 / 77; Pulse 144; Resp 20; Pulse Ox 99% on 2 lpm NC; ca1 14:13 BP 107 / 49; Pulse 149; Resp 18; Pulse Ox 100% on R/A; hb 14:50 BP 105 / 66; Pulse 77; Resp 15; Pulse Ox 100% ; Pain 0/10; hb 15:30 BP 116 / 72; Pulse 68; Resp 15; Pulse Ox 97% ; hb 16:30 BP 128 / 69; Pulse 68; Resp 15; Pulse Ox 96% on R/A; hb 17:26 BP 114 / 61; Pulse 67; Resp 14; Pulse Ox 98% on R/A; hb 18:15 BP 119 / 76; Pulse 66; Resp 16; Temp 97.8; Pulse Ox 100% on R/A; Pain 0/10; hb 18:45 BP 125 / 76; Pulse 67; Resp 18; Pulse Ox 95% on R/A; hb 19:35 BP 114 / 58; Pulse 65; Resp 20 S; Pulse Ox 97% on R/A; Pain 0/10; jd3 13:25 Body Mass Index 31.46 (78.02 kg, 157.48 cm) ca1 ED Course: 13:16 Patient arrived in ED. ca1 13:20 [place], Jd, INOCENCIO is Primary Nurse. mg2 13:22 Triage completed. ca1 13:25 EKG done, by technical sales specialist. reviewed by Joni Meléndez MD. at1 13:25 Arm band placed on right wrist. EKG completed in triage. Results shown to MD. ca1 13:27 Joni Meléndez MD is Attending Physician. kdr 13:29 No provider procedures requiring assistance completed. Maintain EMS IV. Dressing ca1 intact. Good blood return noted. Site clean \T\ dry. Gauge \T\ site: 18 RAC. Patient maintains SpO2 saturation greater than 95% on room air. 13:29 Patient has correct armband on for positive identification. Placed in gown. Bed in low ca1 position. Call light in reach. Side rails up X 1. air sampling and monitoring on. Pulse ox on. NIBP on. Warm blanket given. 13:29 Notified ED physician of vital signs. ca1 13:31 X-ray completed. Portable x-ray completed in exam room. Patient tolerated procedure mh1 well. 13:35 XRAY Chest (1 view) In Process Unspecified. EDMS 14:00 Report given to INOCENCIO Jain. ca1 14:09 Consent for conscious sedation explained by physician, signed by patient, Procedure hb consent explained by physician, signed by patient. 14:12 Susy Mario RN is Primary Nurse. hb 14:30 Assist provider with cardioversion (synchronized) with pads, for treatment of A fib hb with 100 joules Set up for procedure. Performed by Joni Meléndez MD Monitored with patient monitor, pulse ox, Post procedure rhythm is sinus rhythm. Patient tolerated well. 14:32 Inserted saline lock: 20 gauge in left antecubital area, using aseptic technique. hb ,using aseptic technique. by Vicky PAINTER. 14:40 EKG done, by technical sales specialist. reviewed by Joni Meléndez MD. sm3 15:13 Basic Metabolic Panel Sent. sv 15:27 Thien Sims MD is Hospitalizing Provider. kdr 19:38 Patient admitted, IV remains in place. jd3 Administered Medications: 14:16 Drug: fentaNYL (PF) 50 mcg {Note: Administered by Dr. Meléndez.} Route: IVP; Site: right hb antecubital; 14:35 Follow up: Response: No adverse reaction hb 14:17 Drug: Propofol 100 mg {Note: Administered by Dr. Meléndez.} Route: IVP; Site: right hb antecubital; 14:38 Follow up: Response: No adverse reaction hb 14:35 Drug: Dopamine drip 5 mcg/kg/min - (DOPamine 400 mg, D5W 250 ml) Route: IV; Rate: hb calculated rate; Site: left antecubital; 14:50 Follow up: Response: No adverse reaction; IV Status: IV converted to saline lock hb Outcome: 15:30 Decision to Hospitalize by Provider. kdr 19:37 Admitted to Tele accompanied by tech, via stretcher, room 429, with chart, Report jd3 called to Arian PAINTER 19:37 Condition: stable 19:37 Instructed on the need for admit, Demonstrated understanding of instructions. 20:34 Patient left the ED. jd3 Signatures: Dispatcher [employer] Vicky Duval, RN RN Joni Medrano MD MD kdr Anil, Nell mh1 Deedee Encarnacion, counseling specialist EKG Tat1 Susy Mario RN RN hb Harman Vila RN RN jd3 Jd Wolfe, INOCENCIO RN mg2 Catherine Chi sm3 Nya Morris RN RN ca1 Corrections: (The following items were deleted from the chart) 15:05 14:30 Assist provider with cardioversion (unsynchronized) with pads, for treatment of A hb fib with 100 joules Set up for procedure. Performed by Joni Meléndez MD Monitored with patient monitor, pulse ox, Post procedure rhythm is sinus rhythm. Patient tolerated well. hb
--- NOTE | 2019-01-26 16:22 | EKG ---
Test Date: 2019-01-26 Test Time: 14:35:30 Rock Worker: MARTA MEASUREMENT RESULTS: Intervals: Rate: 63 OH: 146 QRSD: 74 QT: 466 QTc: 476 [place]: P: 44 OH: 146 QRS: -14 T: -14 INTERPRETIVE STATEMENTS: Sinus rhythm with premature supraventricular complexes Possible Left atrial enlargement ST abnormality, possible digitalis effect Abnormal ECG Compared to ECG 01/26/2019 13:18:23 Atrial premature complex(es) now present Atrial fibrillation no longer present Left-axis deviation no longer present ST (T wave) deviation still present Electronically Signed On 01-26-19 16:21:59 CDT by Umesh Ulloa
--- NOTE | 2019-01-26 16:23 | EKG ---
Test Date: 2019-01-26 Test Time: 13:18:[address] Magistrate: AG/S MEASUREMENT RESULTS: Intervals: Rate: 143 AL: QRSD: 80 QT: 326 QTc: 503 [place]: P: AL: QRS: -43 T: 106 INTERPRETIVE STATEMENTS: Atrial fibrillation with rapid ventricular response Left axis deviation Nonspecific ST and T wave abnormality, probably digitalis effect Abnormal ECG Compared to ECG 02/06/2018 23:21:52 Left-axis deviation now present ST (T wave) deviation now present Sinus rhythm no longer present Atrial premature complex(es) no longer present Electronically Signed On 01-26-19 16:22:20 CDT by Umesh Ulloa
[2019-01-26 21:08] VITALS: BMI 33.7
[2019-01-26] MEDS ORDERED: ACETAMINOPHEN 500 MG TAB PO PRN (21:17)
[2019-01-26] MEDS ORDERED: ONDANSETRON 4 MG/2 ML VIAL IV PRN (21:17)
[2019-01-26] MEDS: APIXABAN 5 MG TABLET PO SCH (22:01)
[2019-01-26] MEDS: SOTALOL HCL 80 MG TAB PO SCH (22:01)
--- NOTE | 2019-01-26 23:00 | CON ---
History Of Present Illness: Mrs. Harden is 73. She came to the hospital after a trip and she start ed to feel her heart race and started to feel bad. She came to the hospital, was found to be in atri al fibrillation. She has been in atrial fibrillation before. We had her in sinus rhythm. She is on Eliquis. We were concerned about amiodarone toxicity and stopped it about 2 months ago and she has not had any atrial fibrillation until now. I think it is time to consider a different antiarrhythmic drug. I think she should not be on flecainide or Rythmol because of her history of coronary heart d isease. She has had intracoronary stents. Ejection fraction is normal. She has also had bilateral carotid endarterectomies. After she came to the hospital, she was cardioverted. She is in sinus rhy thm at the time of the exam. Physical Examination: General: She is alert, oriented, pleasant. Vital Signs: Blood pressure 128/70, heart rate 70, occasional PACs on the monitor. Lungs: Clear. Heart: Regular rate and rhythm. No gallop. Laboratory Data: Her troponin is 0.06. Impression: Ms. Harden should probably be in the hospital overnight and have initiation of therapy with Betapace 40 b.i.d. If that does not work, I will ask her to consider going through an atrial fi brillation ablation or getting placed on dofetilide by the doctors in [place]. KENYA/MILY Voice ID: [id number] Report ID: [id number]
[2019-01-26 23:21] LABS: Urine Appearance CLOUDY; Urine Bilirubin NEGATIVE (NEG); Urine Blood NEGATIVE (NEG); Urine Color YELLOW; Urine Glucose NEGATIVE (NEG); Urine Protein NEGATIVE (NEG); Urine Specific Gravity 1.015 (1.005-1.030); Urine Urobilinogen 0.2 mg/dL (0.2-1.0)
[2019-01-26 23:24] LABS: Urine Microscopic Reflex ORDER UMIC
[2019-01-26 23:46] LABS: Urine Bacteria 20-50 /HPF (<20); Urine Culture Reflex Order REFLEXED; Urine RBC NONE SEEN /HPF (NONE SEEN)
[2019-01-26] MEDS: TEMAZEPAM 15 MG CAP PO PRN (23:54)
--- NOTE | 2019-01-27 03:11 | HP ---
Date of Admission: 01/26/2019 Code Status: Full. Chief Complaint: Palpitations, shortness of breath. Primary Care Physician: Dr. Pinto. History Of Present Illness: The patient is a 73-year-old female with past medical history of atrial fibrillation no longer on anticoagulation due to gastrointestinal bleed, history of carotid endartere ctomy, hypertension, osteoporosis, history of OR, mitral valve prolapse, hyperlipidemia, history of D VT, arthritis, comes in with a 1-week duration of palpitations, generalized malaise, shortness of ashok ath. The patient was in [place] recently, flew back after seeing her daughter and came in to located within [facility] ER directly because her symptoms were worsening. She denies any chest pain per se, however, does report some chest tightness. Symptoms are constant, moderate, progressively worsening. No nausea or vomiting. The patient did feel some palpitations in the ER. Her workup revealed troponin level of 0.06. BNP was elevated at 4600. White blood cell count is normal. She was found to be in AFib with RVR and the patient was cardioverted. Subsequently, she developed hypotension. Blood pressure was in the 70s. The patient had to be placed on dopamine and was given 1 L of normal saline bolus with b lood pressure improving to the 110 range. The patient is also anemic and has not tolerated blood thi nners recently. When seen in the ER she was awake, alert, oriented x3, some mild distress, back in s inus rhythm. Past Medical History: Hypertension, hyperlipidemia, coronary artery disease, history of OR, atrial f ibrillation, mitral valve prolapse, history of DVT, arthritis, osteoporosis, possible autoimmune dise ase. She also has carotid artery disease and history of CVA with left-sided weakness. Past Surgical History: Cholecystectomy, hysterectomy, left hip surgery, left arm surgery with titani um jad, cardiac catheterization with stent placement, back surgery, broken sternum, tumor removal. T patient has had bilateral carotid endarterectomies. Allergies: TO MORPHINE, PENICILLIN AND PROMETHAZINE. Medications: List reviewed. Social History: Denies any tobacco use, alcohol use, or illicit drug use. Lives at home. Independe nt in her activities of daily living. The patient is , has 4 children. Retired. Family History: Sister has hypertension. Mother had cancer and blood disorder. Father had lung dis ease and cancer. Review of Systems: Ten-point system reviewed, negative except as per HPI. Physical Examination: Vital Signs: Blood pressure 106/83, pulse 150, respirations 18, temperature 97.9, O2 of 100% on room air, BMI is 31.46. General: Awake, alert, oriented x3. Elderly female in some mild distress. HEENT: Normocephalic, atraumatic. PERRLA. EOMI. Moist mucous membranes. Oropharynx is clear. Con junctivae are anicteric. Neck: Supple. No JVD. Trachea midline. CV: S1, S2. Regular rate and rhythm. Peripheral pulses weak bilaterally. Respiratory: Moving air well bilaterally. No wheezing or stridor. Gastrointestinal: Abdomen is soft, nontender, nondistended. Positive bowel sounds. No guarding or rigidity. No palpable masses. Extremities: No clubbing, cyanosis. The patient has pedal edema. No calf tenderness. Neuro: Cranial nerves 2-12 intact grossly. No focal neurological deficit. Speech is normal. Sensa tion intact to light touch. Psych: Mood is okay. Affect is full. Insight and judgment are good. Skin: No rashes. Normal skin turgor. Laboratory Data: WBC 6.3, H and H 8.7 and 27.9, platelets 193. INR 1.93. Sodium 140, potassium 4.4 , chloride 106, CO2 of 24, BUN 22, creatinine is 1.11, glucose 93, calcium 8.8, magnesium 2. Troponi n 0.06. BNP 4649, albumin 3.3. Chest x-ray shows mild CHF suspected. EKG shows atrial fibrillation with RVR, rate of 143, left axis deviation, nonspecific ST-T wave abnormality. Repeat EKG post card ioversion shows sinus rhythm with premature supraventricular complexes, possible left atrial enlargem ent. Assessment: A 73-year-old female with: 1.Atrial fibrillation with rapid ventricular response. We will continue on metoprolol. The patient is status post cardioversion. The patient is no longer taking Multaq. The patient is also not on a nticoagulation due to inability to tolerate the anticoagulant due to gastrointestinal bleeds. Dr. Johann lees has been consulted. 2.Acute hypotension following cardioversion. The patient did receive propofol. Blood pressure is i mproved with dopamine and IV fluids. Blood pressure is in the 110s. We will continue to monitor. A void IV fluids for now as BNP is elevated. Chest x-ray shows mild congestive heart failure. 3.Elevated troponin level 0.06, likely due to atrial fibrillation with rapid ventricular response. No chest pain at this time. We will continue to monitor. No ST elevation on EKG. 4.Obesity, BMI 31. 5.Diastolic heart failure, chronic. Last known EF from last year was 50-55%. We will continue to m onitor I's and O's, fluid restriction, daily weights. 6.History of myocardial infarction and coronary artery disease, [place] artery and [place] heart witho ut angina. We will continue home medications as appropriate. 7.Mitral valve prolapse. 8.Osteoporosis. 9.Mixed hyperlipidemia. We will continue statin. 10.History of deep venous thrombosis. No longer on anticoagulation. 11.Generalized osteoarthritis. 12.Deep venous thrombosis prophylaxis with SCDs. No chemical anticoagulation due to gastrointestina l bleed. 13.Microcytic hypochromic anemia. Hemoglobin is 8.7, baseline is around 9. We will continue to mon luiza Arredondo and H. Plan: Admit patient to Med-Surg, place as inpatient. Length of stay greater than 2 midnights. NUHA Voice ID: [id number]
[2019-01-27 04:24] LABS: Basophils % 0.6 % (0-1.3); Eosinophils % 3.8 % (0-4.4); Hematocrit 23.9 % (36.0-45.0); Lymphocytes % 20.9 % (15.3-44.8); MPV 11.3 fL (7.6-11.3); Monocytes % 8.5 % (3.3-12.3); RBC Red Blood Cell Count 3.26 M/uL (3.86-4.86)
[2019-01-27 05:01] LABS: Albumin 2.9 g/dL (3.4-5.0); Bilirubin Total 0.4 mg/dL (0.2-1.0); Potassium 3.8 mmol/L (3.5-5.1); Protein, Total 6.2 g/dL (6.4-8.2); Thyroid Stimulating Hormone 1.71 uIU/mL (0.360-3.740)
[2019-01-27] MEDS: SOTALOL HCL 80 MG TAB PO SCH ×2 (06:19→17:26)
[2019-01-27 08:04] LABS: Hematocrit 25.7 % (36.0-45.0); RBC Red Blood Cell Count 3.5 M/uL (3.86-4.86)
[2019-01-27] MEDS: APIXABAN 5 MG TABLET PO SCH (08:08)
[2019-01-27 09:17] LABS: Ferritin 5.9 ng/mL (8-388); Folic Acid, (Folate) > 20.0 ng/mL (3.1-17.5); Transferrin 326 mg/dL (200-360)
[2019-01-27] MEDS ORDERED: FUROSEMIDE 40 MG/4 ML VIAL IV ONE (09:46)
[2019-01-27] MEDS ORDERED: TRAMADOL HCL 50 MG TAB PO PRN (12:34)
[2019-01-27 13:22] LABS: Hematocrit 27.6 % (36.0-45.0)
--- NOTE | 2019-01-27 17:25 | PN ---
Date of Progress Note: 01/27/2019 Subjective: The patient seen and examined. Chart reviewed and case discussed with RN and Dr. Munroe. The patient still complaining of shortness of breath requiring supplemental oxygenation. Her hemoglobin dropped today down to 7.2. The patient denies any further palpitations. The patient is back in sinus rhythm. Family at the bedside. Treatment plan explained, all questions answered. Medications: List reviewed. Physical Examination: Vital Signs: Temperature 97, heart rate 58, blood pressure 125/68, respirations 17, and O2 of 96% on 2 L via nasal cannula. General: Awake, alert, oriented x3. Elderly female, in mild respiratory distress, obese. CV: S1 and S2. Regular rate and rhythm. Peripheral pulses present. Respiratory: Diminished breath sounds. Crackles heard. No wheezing or stridor. Gastrointestinal: Abdomen is soft, nontender, nondistended. Positive bowel sounds. Extremities: No clubbing, cyanosis. The patient has minimal pedal edema. Neuro: Cranial nerves 2 through 12 intact grossly. No focal neurological deficit. Speech is normal. Laboratory Data: Sodium 142, potassium 3.8, chloride 108, CO2 27, BUN 22, creatinine 1.08, glucose 98, calcium 8.1, magnesium 2, iron 15, TIBC 456, transferrin 326, ferritin 5.9, lactate dehydrogenase 199, folate greater than 20. Vitamin B12 412. WBC 4.9, H and H 7.2 and 23.9, platelets 157. Repeat H and H were 7.6 and 25.7. Retic count is 2.26. Haptoglobin pending. Assessment And Plan: A 73-year-old female with: 1. Atrial fibrillation with rapid ventricular response, currently on Betapace , back in sinus rhythm. The patient has tolerated 2 doses, we will await third dose prior to discharge. Appreciate Dr. Munroe and Dr. Ulloa' input. Hold anticoagulation due to low hemoglobin. 2. Acute hypertension, following cardioversion, improved. We will continue to monitor. 3. Acute on chronic diastolic heart failure, ejection fraction 50%-55%. We will add IV Lasix. Monitor I's and O's, daily weights. Continue fluid restriction. 4. Elevated troponin level likely secondary to atrial fibrillation and congestive heart failure. 5. Obesity, BMI 31. 6. History of myocardial infarction, coronary artery disease, [place] artery and [place] heart without angina. 7. Mitral valve prolapse. 8. Osteoporosis. 9. Hyperlipidemia. Continue statin, stable. 10. Generalized osteoarthritis, stable. 11. Anemia, microcytic hypochromic. The patient does have iron deficiency. The patient states history of internal hemorrhoids, has had recent colonoscopy. We will monitor. Repeat H and H. We will repeat H and H and transfuse, if hemoglobin less than 8. Due to her history of coronary artery disease, hold anticoagulation. NUHA Voice ID: [id number] Report ID: [id number] MTDD
[2019-01-27] MEDS: FUROSEMIDE 20 MG TABLET PO SCH (17:26)
[2019-01-27] MEDS ORDERED: ATORVASTATIN 40 MG TAB PO SCH (21:00)
--- NOTE | 2019-01-27 23:38 | PN ---
Date of Progress Note: 01/27/2019 Ms. Harden is 73, was admitted on 01/26/2019 for atrial fibrillation. She has had a long history of that. She has failed multiple antiarrhythmic. We had taken off the amiodarone recently. Went back into atrial fibrillation now. She was placed on Betapace 40 b.i.d. yesterday. She remains in hoda l rhythm today. She is not having much in the way of complaint except for fatigue. She was found to have significantly anemic. Plan: To give her a blood transfusion today. I think her Eliquis still needs to be resumed. She ca n go home whenever it is okay with Dr. Sims and we will see her back in the office. She may later n eed ablation or Tikosyn depending on her progress. TOMÁS/MILY Voice ID: [id number] Report ID: [id number]
[2019-01-28] MEDS: TEMAZEPAM 15 MG CAP PO PRN (00:36)
[2019-01-28] MEDS: FUROSEMIDE 20 MG TABLET PO SCH ×2 (06:00→17:24)
[2019-01-28] MEDS: SOTALOL HCL 80 MG TAB PO SCH ×2 (06:00→17:24)
[2019-01-28] MEDS ORDERED: IRBESARTAN 150 MG TAB PO SCH (09:00)
[2019-01-28] MEDS ORDERED: POTASSIUM CL SA 10 MEQ TAB PO SCH (09:00)
[2019-01-28 10:17] LABS: Hematocrit 28.2 % (36.0-45.0)
[2019-01-28 10:50] VITALS: O2SAT 98
--- NOTE | 2019-01-28 13:17 | PN ---
Date of Progress Note: 01/28/2019 Subjective: Ms. Harden had come in about 48-hours ago with recurrent atrial fibrillation, unrespons juice to beta-blockers. She is not sensitive to amiodarone and made her ill and will have to stop it. She had recurrent atrial fibrillation. She is now on Betapace 40 mg 1 p.o. b.i.d. She has tolerate d that well and maintained sinus rhythm. She was going to go home yesterday, but she was very tired and fatigued, and was found to have a hemoglobin of 8.1. Initially a plan was to transfuse her, but this does not happen. Today, she feels better, more energetic, no shortness of breath. CBC is pendi ng. From our standpoint she can go home and get back on her Eliquis. Her main reason for anemia is bleeding from internal hemorrhoids. She will follow up with us in the office in the next 2 weeks. TOMÁS/MILY Voice ID: [id number] Report ID: [id number]
[2019-01-28 16:39] VITALS: BP 113/53; TEMP 97.3
[2019-01-28] MEDS ORDERED: APIXABAN 5 MG TABLET PO SCH (21:00)
--- NOTE | 2019-01-29 12:51 | DS ---
Date of Discharge: 01/28/2019 Consultants: Dr. Ulloa and Dr. Munroe with Cardiology. Admitting Diagnoses: 1.Atrial fibrillation with rapid ventricular rate. 2.Acute hypotension following cardioversion. 3.Elevated troponin level. 4.Obesity, BMI 31. 5.Diastolic heart failure, chronic. 6.History of myocardial infarction and coronary artery disease, [place] artery and resighini heart, with out angina. 7.Mitral valve prolapse. 8.Osteoporosis. 9.Mixed hyperlipidemia. 10.Generalized osteoarthritis. Discharge Diagnoses: 1.Atrial fibrillation with rapid ventricular rate, converted back to sinus rhythm, on sotalol. 2.Acute hypotension, resolving. 3.Elevated troponin level secondary to atrial fibrillation and congestive heart failure. 4.Luovh-tr-ynhmcfi diastolic heart failure, EF 50% to 55%. 5.History of myocardial infarction, coronary artery disease, resighini artery and resighini heart, without angina. 6.Mitral valve prolapse. 7.Osteoporosis. 8.Mixed hyperlipidemia. 9.Generalized osteoarthritis. 10.Microcytic hypochromic anemia due to iron deficiency. 11.History of internal hemorrhoids. Hospital Course: The patient is a 73-year-old female with multiple comorbid conditions including cor onary artery disease, heart failure, hypertension, atrial fibrillation, CHF, comes in with atrial fib rillation with RVR. The patient was given IV Lopressor. She was started on sotalol. Cardiology was consulted. She converted back to sinus rhythm. She did have mild elevation in troponin level, like ly related to the AFib with RVR. Her electrolytes were checked, which were normal. TSH was also nor mal. The patient was resumed on her anticoagulation, however, she did develop worsening of her anemi a. Her hemoglobin dropped to 7.2, however, did not require any transfusions. Hemoglobin improved ba ck to 8.4. She does have history of internal hemorrhoids, had recent colonoscopy, which was clear ot her than the internal hemorrhoids. The patient was seen by Cardiology. Cardiology recommended azeb nuing anticoagulation. She did not have any active bleeding while in the hospital. The patient did well overall. She did have a little bit of congestive heart failure, with mild CHF on x-ray. The pa tient was given Lasix and responded well. The patient was then cleared for discharge from Cardiology standpoint. Her atrial fibrillation had resolved. Her weakness improved. Her hemoglobin was stabl e. The patient was sent home in a stable condition with home health with physical therapy. The yanique ent worked with PT and was recommended to have home health with physical therapy services. Diet: Low-sodium, fluid-restricted diet. Activity: As tolerated. Ambulate with assist. Followup: Follow up with primary care physician in 2 to 3 days. Follow up with oracle software engineer, Dr. Oli astudillo, in 2 weeks. Return to ER for worsening condition. Follow up with GI as recommended. Medications: As per medication reconciliation list. Physical Examination: General: Awake, alert, oriented. An elderly female, obese. CV: S1, S2. Regular rate and rhythm. Respiratory: Moving air well bilaterally. Abdomen: Soft, nontender, nondistended. Positive bowel sounds. Extremities: No clubbing, cyanosis, or edema. Neuro: Nonfocal. Total time spent discharging the patient was 38 minutes. /MILY Voice ID: [id number] Report ID: [id number]
== END 2019-01-28 18:15 | disposition home health service (06) | DRG 308 ==
LOC: ER 13:13 → ERHOLD 15:48 → 4TH 19:49
PROVIDERS: ADMIT Family Medicine; ATTEND Family Medicine
DX: I48.91 Unspecified atrial fibrillation (principal); I50.33 Acute on chronic diastolic (congestive) heart failure; I95.9 Hypotension, unspecified; E66.9 Obesity, unspecified; Z68.31 Body mass index [BMI] 31.0-31.9, adult; I11.0 Hypertensive heart disease with heart failure; I25.10 Atherosclerotic heart disease of native coronary artery without angina pectoris; I34.1 Nonrheumatic mitral (valve) prolapse; M81.0 Age-related osteoporosis without current pathological fracture; E78.2 Mixed hyperlipidemia; M15.9 Polyosteoarthritis, unspecified; D50.9 Iron deficiency anemia, unspecified; I25.2 Old myocardial infarction; Z86.718 Personal history of other venous thrombosis and embolism; Z88.5 Allergy status to narcotic agent; Z88.0 Allergy status to penicillin
CPT/HCPCS: 36415; 71045; 80048; 80053; 80076; 81003; 81015; 82274; 82607; 82728; 82746; 83010; 83540; 83615; 83735; 83880; 84100; 84443; 84466; 84484; 85014; 85018; 85025; 85044; 85610; 86850; 86900; 86901; 87086; 87088; 92960; 93005; 94760; 97163; 99291; J1265; J1940; J2704; J3010; J7030

== ENCOUNTER 2019-02-08 17:53 | Inpatient (IN) | payer OTHER ==
--- OUTSIDE RECORDS SUMMARY | 2019-02-08 17:58 | XMS REPORT | Clinical Summary ---
:1945 Author Organization [facility] Address [address] [place] [address] Care Team Providers Name Role Phone Kasey [...] 10/27/2018 Anesthesia Event Angus Montanez, AA 10/27/2018 [facility] Rick Flynn Carotid stenosis, - Encounter MD Omega left (Primary Dx) 10/29/2018 10/27/2018 Travel 10/26/2018 [facility] Rick Flynn Encounter MD Omega 10/26/2018 Office Visit Cardiology Rick Flynn Cerebrovascular accident (CVA), unspecified mechanism (HCC); MD Omega S/P carotid endarterectomy 02/13/2018 Anesthesia Event Gastroenterology Dm Trimble MD 02/13/2018 Surgery Gastroenterology Ted Uribe MD 02/11/2018 Anesthesia Event Gastroenterology Nicci Pablo MD 02/07/2018 [facility] Cardiology Brann, Transient cerebral ischemia, unspecified type; - Encounter Carlos Chronic atrial fibrillation (HCC); 02/13/2018 MD Umesh Essential hypertension; Magdalena Byers MD Ataxia; Yovani Norris Stenosis of right carotid artery; MD Jose Acute embolic stroke (HCC); Paroxysmal atrial fibrillation (HCC) 02/07/2018 Orders Only General Internal Medicine after 02/07/2018 Family History Medical History Relation Name Comments [...] Not on file Implants Implanted Type Area Supervisor Functional Testing Device Shelf Model / Identifier Expiration Serial / Lot Date Grft Hemshld Dbl Ovidio 0.3x3.0in [id number] - [id number] Graft/Pa Right: GETINGE 03/02/2022 [id number] / Implanted: Qty: 1 on 10/21/2017 by Max Seo MD [facility] Neck IND:CRISTINAT: CV [id number] / [id number] Procedures Procedure Name Priority Date/Time [...] PROCEDURE - 07/12/2018 1:08 ENDOSCOPY URL PM DRIVER HELPER REPORT OF PROCEDURE - 02/16/2018 8:40 ENDOSCOPY [...] 226 ms QTC Calculation(Bazett) 254 ms P [place] 43 degrees R [place] -11 degrees T [place] -85 degrees Sinus rhythm with Premature atrial [...] procedure are in the results section. after 02/07/2018 Results RHYTHM STRIP - SCAN (11/05/2018 8:20 [...] ABO A Pos [place] UNIT NUMBER [id number] [place] Status TX_TIMEINCHART [place] Blood Bank Product RED BLOOD CELLS [place] PRODUCT CODE [id number] [place] Specimen Other Performing Organization Address City/State/Zipcode Phone Number [place] CBC with platelet count + automated diff (10/29/2018 4:31 AM CDT)Only the most recent of9 resultswithin the time period is included. WBC 4.6 3.5 - 10.5 K/L [facility] RBC 3.30 (L) 3.93 - 5.22 M/L [facility] Hemoglobin 7.4 (L) 11.2 - 15.7 GM/DL [facility] Hematocrit 25.6 (L) 34.1 - 44.9 % [facility] MCV 77.6 (L) 79.4 - 94.8 fL [facility] MCH 22.4 (L) 25.6 - 32.2 pg [facility] MCHC 28.9 (L) 32.2 - 35.5 GM/DL [facility] RDW 18.2 (H) 11.7 - 14.4 % [facility] Platelets 149 (L) 150 - 450 K/CU MM [facility] MPV 12.9 (H) 9.4 - 12.3 fL [facility] nRBC 0 0 - 0 /100 WBC [facility] % Neutros 58 % [facility] % Lymphs 25 % [facility] % Monos 12 % [facility] % Eos 5 % [facility] % Baso 0 % [facility] # Neutros 2.66 1.56 - 6.13 K/L [facility] # Lymphs 1.12 (L) 1.18 - 3.74 K/L [facility] # Monos 0.54 (H) 0.24 - 0.36 K/L [facility] # Eos 0.21 0.04 - 0.36 K/L [facility] # Baso 0.02 0.01 - 0.08 K/L [facility] Immature Granulocytes-Relative 0 0 - 1 % [facility] Specimen Blood Performing Organization Address City/State/Zipcode Phone Number [facility] [address] [place] [address] [phone] CENTER Magnesium (10/29/2018 4:31 AM CDT)Only the most recent of8 resultswithin the time period is included. Magnesium 1.9 1.6 - 2.6 mg/dL [facility] Specimen Blood Performing Organization Address City/[facility] Phone Number [facility] [address] [place] [address] [phone] [facility] Basic Metabolic Panel (10/29/2018 4:31 AM CDT)Only the most recent of11 resultswithin the time period is included. Sodium 135 (L) 136 - 145 meq/L [facility] Potassium 3.3 (L) 3.5 - 5.1 meq/L [facility] Chloride 103 98 - 107 meq/L [facility] CO2 23 22 - 29 meq/L [facility] BUN 9 7 - 21 mg/dL [facility] Creatinine 0.84 0.57 - 1.25 mg/dL [facility] Glucose 87 70 - 105 mg/dL [facility] Calcium 8.2 (L) 8.4 - 10.2 mg/dL [facility] EGFR 67Comment: ESTIMATED GFR IS mL/min/1.73 sq m [facility] NOT ACCURATE [facility] CLEARANCE IN PREDICTING GLOMERULAR FILTRATION RATE. ESTIMATED GFR IS NOT APPLICABLE FOR DIALYSIS PATIENTS. Specimen Blood Performing Organization Address City/[facility]/Zipcode Phone Number [facility] [address] [place] [address] [facility] Hemoglobin and hematocrit (10/28/2018 2:30 PM CDT)Only the most recent of3 resultswithin the time period is included. Hemoglobin 7.4 (L) 11.2 - 15.7 GM/DL [facility] Hematocrit 25.9 (L) 34.1 - 44.9 % [facility] Specimen Blood Performing Organization Address City/[facility]/Zipcode Phone Number [facility] [address] [place] [address] CENTER Transfuse Leuko-Red RBC (10/28/2018 5:58 AM CDT)Only the most recent of2 resultswithin the time period is included.CBC (Hemogram only) (10/28/2018 12:28 AM CDT) WBC 5.1 3.5 - 10.5 K/L [facility] RBC 3.12 (L) 3.93 - 5.22 M/L [facility] Hemoglobin 6.5 (L) 11.2 - 15.7 GM/DL [facility] Hematocrit 24.0 (L) 34.1 - 44.9 % [facility] MCV 76.9 (L) 79.4 - 94.8 fL [facility] MCH 20.8 (L) 25.6 - 32.2 pg [facility] MCHC 27.1 (L) 32.2 - 35.5 GM/DL [facility] RDW 18.8 (H) 11.7 - 14.4 % [facility] Platelets 177 150 - 450 K/CU MM [facility] MPV 12.8 (H) 9.4 - 12.3 fL [facility] nRBC 0 0 - 0 /100 WBC [facility] Specimen Blood Performing Organization Address City/[facility] Phone Number [facility] [address] [place] [address] [phone] CENTER Potassium-Stat Lab (10/27/2018 11:45 AM CDT)Only the most recent of2 resultswithin the time period is included. Potassium 3.8 3.6 - 5.5 meq/L [facility] Specimen Blood, Arterial Performing Organization Address City/State/Zipcode Phone Number [facility] [address] [place] [address] [phone] [facility] Glucose-Stat Lab (10/27/2018 11:45 AM CDT)Only the most recent of2 resultswithin the time period is included. Glucose 96 70 - 110 mg/dL [facility] Specimen Blood, Arterial Performing Organization Address City/[facility]/Zipcode Phone Number [address] [address] [facility] HGB/HCT (H&H)-Stat Lab (10/27/2018 11:45 AM CDT)Only the most recent of2 resultswithin the time period is included. Hemoglobin 7.6 (L) 12.0 - 15.0 g/dL [facility] Hematocrit 22.0 (L) 36.0 - 45.0 % [facility] Specimen Blood, Arterial Performing Organization Address City/[facility] Phone Number [address] [phone] [facility] Tissue Exam (10/27/2018 9:55 AM CDT) Case Report Surgical Pathology Report Case: [id number] [facility] Authorizing Provider:Rick Flynn, Collected: 10/27/2018 0955 [facility] Ordering Location: [facility] Received: 10/27/2018 1010 [employer] Pathologist: Gilbert Anderson MD Specimen:Plaque, LEFT CAROTID PLAQUE DIAGNOSIS ARTERY, LEFT CAROTID, ENDARTERECTOMY: [facility] CALCIFIC ATHEROSCLEROTIC PLAQUE [facility] Signing Pathologist Direct Phone Line: [phone] CPT Code(s) 19344; 88626 [facility] CLINICAL HISTORY Left carotid stenosis [facility] SPECIMEN SOURCE Left carotid plaque [facility] GROSS DESCRIPTION The specimen is received in a [facility] formalin-filled container and [facility] labeled with the patient's information and labeled "left carotid plaque" and consists of a calcified tubular shaped segment of tissue measuring 1.5 cm in length x 0.6 cm in diameter. Town Administrator sections are submitted A1 for decal. CG/pl MICROSCOPIC DESCRIPTION Performed [facility] Specimen Tissue Performing Organization Address City/State/Zipcode Phone Number [facility] [address] [place] [address] [facility] Sodium Na-Stat Lab (10/27/2018 8:58 AM CDT) Sodium 138 135 - 148 meq/L [facility] Specimen Blood, Arterial Performing Organization Address City/State/Zipcode Phone Number [address] [address] [facility] Calcium, Ionized (10/27/2018 8:58 AM CDT) Calcium, Ion 1.04 (L) 1.12 - 1.27 mmol/L [facility] pH, Blood 7.30 [facility] Specimen Blood Performing Organization Address City/[facility] Phone Number [address] [address] [phone] [facility] Blood gas, arterial (10/27/2018 8:58 AM CDT) pH, Arterial 7.32 (L) 7.35 - 7.45 [facility] pCO2, Arterial 46 (H) 35 - 45 mmHg [facility] pO2, Arterial 274 (H) 80 - 90 mmHg [facility] O2 Sat, Arterial 99.6 (H) 96.0 - 97.0 % [facility] HCO3, Arterial 23 21 - 29 mmol/L [facility] Base Excess, Arterial -3.2 (L) -2.0 - 3.0 mmol/L [facility] Patient Temperature 36.0 C [facility] FIO2 100.0 % [facility] Specimen Blood, Arterial Performing Organization Address [facility] Phone Number [address] [phone] [facility] Platelet Aggregation: Function Screen (10/27/2018 6:48 AM CDT) Weak ADP 98 (H) 60 - 91 % [facility] Plt. Function Screen 60-100% indicates [facility] Interpretation normal platelet [facility] function Pathologist: Ema Londono MD [facility] (electronic [facility] signature) Platelets 171 150 - 450 K/CU MM [facility] Specimen Blood Narrative Performed At Platelet Function Screen results may be [facility] falsely low with platelet counts <100,000/cu mm. for patients on clopidogrel in past two weeks for patients on clopidogrel in past two weeks for patients on clopidogrel in past two weeks Performing Organization Address [facility] Phone Number [address] [address] [phone] CENTER ABORH, manual (10/27/2018 6:48 AM CDT)Only the most recent of2 resultswithin the time period is included. ABO Grouping A [facility] Rh Factor POS [facility] Specimen Blood Performing Organization Address [facility] Phone Number [address] [address] POC-Glucose meter (10/27/2018 6:31 AM CDT) POC-Glucose Meter 110Comment: TESTED AT 70 - 110 mg/dL [facility] [address] [place] [phone] Specimen Blood Performing Organization Address [facility] Phone Number [address] [address] [facility] XR chest 2 views (10/26/2018 12:46 PM [...] MD Report Verified Date/Time:10/26/2018 13:20:52 Reading Location: [address] Consult Reading Room Procedure Note Interface, [...] Report Verified Date/Time: 10/26/2018 13:20:52 Reading Location: [facility] C0[facility] Consult Reading Room Performing Organization Address City/State/Zipcode Phone Number RIS Type and screen, automated (10/26/2018 12:16 PM CDT) Ab Scrn NEGATIVE [facility] Specimen Blood Performing Organization Address City/[facility]/Zipcode Phone Number [facility] [address] [place] [address] [phone] Prothrombin time/INR (10/26/2018 12:16 PM CDT) Protime 13.1 11.7 - 14.7 seconds [facility] INR 1.0 <=5.9 [facility] Specimen Blood Narrative Performed At RECOMMENDED COUMADIN/WARFARIN INR THERAPY [facility] RANGES STANDARD DOSE: 2.0 - 3.0 Includes: PROPHYLAXIS for venous thrombosis, systemic embolization; TREATMENT for venous thrombosis and/or pulmonary embolus. HIGH RISK: Target INR is 2.5-3.5 for patients with mechanical heart valves. Performing Organization Address [facility] Phone Number [address] [address] [facility] Lipid panel (10/26/2018 12:16 PM CDT)Only the most recent of3 resultswithin the time period is included. Triglycerides 110 mg/dL [facility] Cholesterol 203 mg/dL [facility] HDL 74 mg/dL [facility] LDL Calculated 107 mg/dL [facility] Specimen Blood Narrative Performed At Triglyceride Reference Range: [facility] Low Risk <150 Raukreuvuj224-261 High Risk 200-499 Very High Risk>=500 Cholesterol Reference Range: Low Risk <200 Ggidtznlfo552-718 High Risk>240 HDL Cholesterol Reference Range: Low Risk >=60 High Risk <40 LDL Cholesterol Reference Range: Optimal<100 Near Qbbvqgs567-884 Pxvbbfwbfu779-965 Rwue346-433 Very High >=190 Performing Organization Address [facility] Phone Number [address] [address] [facility] REPORT OF PROCEDURE - ENDOSCOPY URL (07/12/2018 1:08 PM DRIVER HELPER) Narrative Performed At ECHOCARDIOGRAM REPORT - SCAN (02/12/2018 8:20 AM CDT) Narrative Performed At Iron, TIBC, % sat. (without ferritin) (02/12/2018 5:49 AM CDT) Iron 41 40 - 160 ug/dL [facility] TIBC 289 250 - 450 ug/dL [facility] Iron % Saturation 14 (L) 20 - 55 % [facility] Specimen Blood Performing Organization Address City/[facility]/Zipcode Phone Number [facility] [address] [place] [address] [facility] Ferritin (02/12/2018 5:49 AM CDT) Ferritin 45 5 - 275 ng/mL [facility] Specimen Blood Performing Organization Address [facility] Phone Number [facility] [address] [place] [address] [phone] [facility] Transesophageal echo (02/11/2018 2:08 PM CDT) Ejection Fraction [facility] Specimen Narrative Performed At Transesophageal Echocardiography Report (HENNA) [facility] Demographics Patient Name JENNIFFER HARDEN Date of Study 02/11/2018 KATIE [id number] GenderFemale Visit Number [id number] RaceCaucasian [id number] m Number 1434 Number Date of Birth1945 Referring Physician Trish Gavin MD Age72 year(s) Assistant District Attorney Jen Turpin, CS Arthur Ceja MD Physician [...] Normal right ventricle structure and function. 3. Uvqphxgf-he-ekptcv mitral annular calcification extending into both leaflets, [...] Technically adequate exam. Rhythm/BP 3D imaging (cpt 87975) rendering with interpretation was performed. LeftNormal left [...] AoV cusp calcification. Mild aortic regurgitation. Mitral YihybBsrlykwr-zt-knmztz mitral annular calcification extending into both leaflets, [...] Study 02/11/2018 KATIE Gender Female Visit Number [id number] Race Room Number 1434 Number Date of 1945 Referring Physician Trish Gavin MD Age 72 year(s) Assistant District Attorney Jen Turpin, [facility] Interpreting Byron Ceja MD Physician Fellow JAY [...] Normal right ventricle structure and function. 3. Ckkewswv-nf-gibgrb mitral annular calcification extending into both leaflets, [...] Technically adequate exam. Rhythm/BP 3D imaging (cpt 29241) rendering with interpretation was performed. Left Normal [...] cusp calcification. Mild aortic regurgitation. Mitral Valve Vntijchn-kd-yuahlb mitral annular calcification extending into both leaflets, [...] pericardial effusion is visualized. Performing Organization Address City/State/[facility] Phone Number [facility] MR spine lumbar without IV contrast (02/10/2018 1:56 PM CDT) Specimen Narrative Performed At FINAL REPORT [employer] [facility] MRI of the lumbar spine Comparison:None Reason [...] MD Report Verified Date/Time:02/10/2018 14:56:55 Reading Location: [address] Consult Reading Room Procedure Note Interface, [...] Report Verified Date/Time: 02/10/2018 14:56:55 Reading Location: [facility] C0[facility] Consult Reading Room Performing Organization Address City/State/Zipcode Phone Number [facility] MR thoracic spine without IV contrast (02/10/2018 1:56 PM CDT) Specimen Narrative Performed At FINAL REPORT [facility] MRI of the thoracic spine Comparison:None Reason [...] MD Report Verified Date/Time:02/10/2018 14:43:52 Reading Location: [facility] [id number] Consult Reading Room Procedure Note Interface, [...] Report Verified Date/Time: 02/10/2018 14:43:52 Reading Location: [facility] C013W Consult Reading Room Performing Organization Address City/State/Zipcode Phone Number [facility] Venous doppler legs bilateral (02/10/2018 10:00 AM CDT) [facility] Fraction [facility]GroupTie[facility] Specimen Impressions Performed At Right Impression [facility] 1. There is [...] PV LAB - Lower Extremities DVT Study [facility] Demographics Patient Name JENNIFFER HARDEN Date of Study02/10/2018 KATIE [id number] Age72 Visit Number [id number] Gender Female Accession Number [id number] Date of Birth1945 Slick Cervantes [id number] Physician SonographRoberto Woods Interpreting Ricki Bradford, RVT [...] Study 02/10/2018 KATIE Age 72 Visit Number [id number] Gender Female Accession Number [id number] Date of 1945 Referring Yovani Norris Room Number 1434 Physician Assistant District Attorney Malia Woods Interpreting Ricki Bradford T Physician [...] (02/09/2018 12:14 PM CDT) Color, UA Yellow [facility] Clarity, UA Clear [facility] Specific Hughes, UA 1.010 1.001 - 1.035 [facility] pH, UA 5.5 5.0 - 8.0 [facility] Protein, UA Negative Negative [facility] Glucose, UA Negative Negative [facility] Ketones, UA Negative Negative [facility] Bilirubin, UA Negative Negative [facility] Blood, UA Negative Negative [facility] Nitrite, UA Negative Negative [facility] Leukocytes, UA Negative Negative [facility] Urobilinogen, UA 0.2 0.2 - 1.0 mg/dL [facility] RBC, UA <1 /HPF [facility] WBC, UA 1 /HPF [facility] Mucus Rare [facility] Squam Epithel, UA 1 /HPF [facility] Hyaline Casts, UA 2 /LPF [facility] Specimen Source [facility] Specimen Urine Performing Organization Address City/State/Zipcode Phone Number [facility] [address] [place] [address] [phone] CENTER 2D Echo W/Doppler(CW/PW/Color) (02/09/2018 9:29 AM CDT) Ejection Fraction [facility] Specimen Narrative Performed At Transthoracic Echocardiography Report (TTE) [facility] Demographics Patient NameMya HARDEN of Study02/09/2018 KATIE Female Visit [id number] Room [id number] Number Date of 1945Referring PhysicianJAY Pena Age 72 year(s)Assistant District Attorney Alisha Keene RDCS Tool Grinding Technician Shelly Hylton, Interpreting Rachel Myers MD RDCSPhysician Procedure Type of Study TTE procedure:2DECHO W DOPPLER(CW/PW/COLOR) (Routine) Indications:Suspected cardiac source of emboli. Clinical History HGB 10.2 HCT 33.5 % A-FIB, CHF, CAD, HTN, CVA X2, FORMER SMOKER, DCCV (01/2018-[place]) Contrast Medium: Bubble Study. Height: 62 inches [...] Study 02/09/2018 KATIE Gender Female Visit Number [id number] Race Room Number 1434 Number Date of 1945 Referring Physician JAY Pena Age 72 year(s) Assistant District Attorney Alisha Keene [facility] Tool Grinding Technician Shelly Hylton, Interpreting Rachel Myers MD RDCS Physician Procedure Type of Study TTE procedure:2DECHO W DOPPLER(CW/PW/COLOR) (Routine) Indications:Suspected cardiac source of emboli. Clinical History HGB 10.2 HCT 33.5 % A-FIB, CHF, CAD, HTN, CVA X2, FORMER SMOKER, DCCV (01/2018-AT [place]) Contrast Medium: Bubble Study. Height: 62 inches [...] Estimated PASP: 43.44 mmHg Performing Organization Address [facility] Phone Number [facility] Vitamin B12 and Folate (02/08/2018 5:10 AM CDT) Vitamin B12 460 213 - 816 pg/mL [facility] Folate 4.2 (L) >=7.0 ng/mL [facility] Specimen Blood Performing Organization Address [facility] Phone Number [address] [address] CENTER TSH/Free T4 If Indicated (02/08/2018 5:10 AM CDT)Only the most recent of2 resultswithin the time period is included. TSH 1.37 0.35 - 4.94 uIU/mL [facility] Specimen Blood Performing Organization Address [facility] Phone Number [address] [address] CENTER C-Reactive Protein (02/08/2018 5:10 AM CDT) CRP 7.42 (H) 0.00 - 0.50 mg/dL [facility] Specimen Blood Performing Organization Address [facility] Phone Number [address] [address] [address] [phone] CENTER Phosphorus (02/08/2018 5:10 AM CDT) Phosphorus 3.7 2.3 - 4.7 mg/dL [facility] Specimen Blood Performing Organization Address City/[facility]/Zipcode Phone Number [facility] [address] [place] [id number] [place] Urinalysis w/Microscopic (02/07/2018 8:32 PM CDT) Color, UA Yellow [facility] Clarity, UA Clear [facility] Specific Hughes, UA 1.015 1.001 - 1.035 [facility] pH, UA 5.5 5.0 - 8.0 [facility] Protein, UA Negative Negative [facility] Glucose, UA Negative Negative [facility] Ketones, UA Negative Negative [facility] Bilirubin, UA Negative Negative [facility] Blood, UA Negative Negative [facility] Nitrite, UA Negative Negative [facility] Leukocytes, UA Large (A) Negative [facility] Urobilinogen, UA 0.2 0.2 - 1.0 mg/dL [facility] RBC, UA 2 /HPF [facility] WBC, UA 46 /HPF [facility] Bacteria, UA Rare [facility] Mucus Occasional [facility] Squam Epithel, UA 4 /HPF [facility] Hyaline Casts, UA 4 /LPF [facility] Specimen Source Urine, Voided [facility] Specimen Urine Performing Organization Address City/State/Zipcode Phone Number [address] [id number] [place] MR brain without IV contrast (02/07/2018 6:38 PM CDT) Specimen Narrative Performed At [facility] Exam: MRI brain without contrast. Comparison:None. Clinical [...] No acute intracranial hemorrhage or mass effect. Zack-vu-grxoonjj white matter microvascular ischemic changes. Prior microhemorrhage in the right frontal lobe. Findings discussed with Dr Helm at 7:25 PM on 02/07/2018. Signed: Shane Rodriguez MD Report Verified Date/Time:02/07/2018 19:27:07 Reading Location: [address] Reading Room Procedure Note Interface, External [...] No acute intracranial hemorrhage or mass effect. Fhda-xn-mfmrpfjn white matter microvascular ischemic changes. Prior microhemorrhage in the right frontal lobe. Findings discussed with Dr Helm at 7:25 PM on 02/07/2018. Signed: Shane Rodriguez MD Report Verified Date/Time: 02/07/2018 19:27:07 Reading Location: [address] Reading Room Performing Organization Address City/State/Zipcode Phone Number [facility] MRA neck without IV contrast (02/07/2018 6:38 PM CDT) Specimen Narrative Performed At [facility]RA head and neck without contrast. CLINICAL HISTORY: Stroke. Ischemic stroke evaluation.. COMPARISON: None. TECHNIQUE: Two- and three-dimensional yfts-pz-dlussf MRA images of the intra- and extracranial [...] is antegrade in both vertebral arteries. MRA [place]: There is irregularity of the [...] MD Report Verified Date/Time:02/07/2018 19:25:57 Reading Location: [address] Transitional Reading Room Procedure Note Interface, External Ris In - 02/07/2018 7:28 PM CDT [facility] head and neck without contrast. CLINICAL HISTORY: Stroke. Ischemic stroke evaluation.. COMPARISON: None. TECHNIQUE: Two- and three-dimensional sevj-mw-jgrnmm MRA images of the intra- and extracranial [...] is antegrade in both vertebral arteries. MRA [place]: There is irregularity of the [...] Report Verified Date/Time: 02/07/2018 19:25:57 Reading Location: [address] Transitional Reading Room Performing Organization Address City/State/Zipcode Phone Number [facility] MRA head without IV contrast (02/07/2018 6:38 PM CDT) Specimen Narrative Performed At [facility] MRA head and neck without contrast. CLINICAL HISTORY: Stroke. Ischemic stroke evaluation.. COMPARISON: None. TECHNIQUE: Two- and three-dimensional zqdx-rm-besucs MRA images of the intra- and extracranial [...] is antegrade in both vertebral arteries. MRA [place]: There is irregularity of the [...] MD Report Verified Date/Time:02/07/2018 19:25:57 Reading Location: [address] Transitional Reading Room Procedure Note Interface, External Ris In - 02/07/2018 7:28 PM CDT [facility] MRA head and neck without contrast. CLINICAL HISTORY: Stroke. Ischemic stroke evaluation.. COMPARISON: None. TECHNIQUE: Two- and three-dimensional mwid-ny-chxneg MRA images of the intra- and extracranial [...] is antegrade in both vertebral arteries. MRA [place]: There is irregularity of the [...] Report Verified Date/Time: 02/07/2018 19:25:57 Reading Location: [address] Transitional Reading Room Performing Organization Address City/State/Zipcode Phone Number [employer] RIS ECG 12 lead (02/07/2018 10:24 AM CDT) Specimen Narrative Performed At Ventricular Rate 76 BPM GE MUSE Atrial Rate 76 BPM P-R Interval 160 ms QRS Duration 72 ms Q-T Interval 226 ms QTC Calculation(Bazett) 254 ms P [place] 43 degrees R [place] -11 degrees [place] -85 degrees Sinus rhythm with Premature atrial [...] 226 ms QTC Calculation(Bazett) 254 ms P [place] 43 degrees R [place] -11 degrees [place] -85 degrees Sinus rhythm with Premature atrial complexes Interatrial conduction delay Prolonged QT Abnormal ECG No previous ECGs available Confirmed by MD ZULETA YOCHAI ([id number]) on 02/08/2018 3:49:27 AM Performing Organization Address City/State/Zipcode Phone Number [employer] MUSE Hemoglobin A1c (02/07/2018 8:24 AM CDT) Hemoglobin A1C 6.0 4.3 - 6.1 % [facility] Specimen Blood Performing Organization Address City/State/Zipcode Phone Number [address] [address] [phone] CENTER after 02/07/2018 Insurance Payer Benefit Plan / Group Subscriber ID Type Phone Address [employer] - MEDICARE UNITED MEDICARE HMO xxxxxxxxx MGD CARE Guarantor Name Account Type Relation to Date of Phone Billing Address Patient Jenniffer Harden Personal/Famil Self 1945 [address] [place] y (Home) [place] [address] Advance Directives For more information, please contact:[address] [phone] Code Status Date Activated Date Inactivated Comments [...] Yonatan Montoya Natural son Primary healthcare agent [phone] Max Montoya Natural son Primary healthcare agent [phone]
--- OUTSIDE RECORDS SUMMARY | 2019-02-08 18:00 | XMS REPORT ---
:1945 Author Organization [facility] Address [address] [place] [address] [address] [place] [address] Care Team Providers Name Role Phone RICK [...] EXAM 2018-11-02 17:45:00 Surgical Pathology Report Case: [id number] Authorizing Provider: Rick Flynn, Collected: 10/27/2018 0955 Ordering Location: [facility] Received: 10/27/2018 1010 PERIOPERATIVE SERVICES Pathologist: Gilbert Anderson MD Specimen: Plaque, LEFT CAROTID PLAQUE ARTERY, LEFT CAROTID, ENDARTERECTOMY:CALCIFIC ATHEROSCLEROTIC PLAQUE Signing Pathologist Direct Phone Line: [phone] signed by Gilbert Anderson MD on 11/02/2018 at 5:45 [id number]; [id number] carotid stenosisLeft carotid plaqueThe specimen is received in a formalin-filled container and labeled with the patient's information and labeled "left carotid plaque" and consists of a calcified tubular shaped segment of tissue measuring 1.5 cm in length x 0.6 cm in diameter. Counselor/Art Therapist sections are submitted A1 for decal. CG/pl Performed CBC W/PLT COUNT & AUTO DIFFERENTIAL 2018-10-29 06:55:00 Test Item Value Reference Range Comments WHITE BLOOD CELL COUNT (BEAKER) (test yoyi=719) 4.6 K/ L 3.5-10.5 RED BLOOD CELL COUNT (BEAKER) (test qdmw=195) 3.30 M/ L 3.93-5.22 HEMOGLOBIN (BEAKER) (test uhec=800) 7.4 GM/DL 11.2-15.7 HEMATOCRIT (BEAKER) (test oosn=532) 25.6 % 34.1-44.9 MEAN CORPUSCULAR VOLUME (BEAKER) (test smca=803) 77.6 fL 79.4-94.8 MEAN CORPUSCULAR HEMOGLOBIN (BEAKER) (test pdhe=121) 22.4 pg 25.6-32.2 MEAN CORPUSCULAR HEMOGLOBIN CONC (BEAKER) (test pkfr=933) 28.9 GM/DL 32.2- 35.5 RED CELL DISTRIBUTION WIDTH (BEAKER) (test yipr=046) 18.2 % 11.7-14.4 PLATELET COUNT (BEAKER) (test ggok=503) 149 K/CU MM 150-450 MEAN PLATELET VOLUME (BEAKER) (test awoj=700) 12.9 fL 9.4-12.3 NUCLEATED RED BLOOD CELLS (BEAKER) (test smuk=581) 0 /100 WBC 0-0 NEUTROPHILS RELATIVE PERCENT (BEAKER) (test ixfk=758) 58 % LYMPHOCYTES RELATIVE PERCENT (BEAKER) (test jabr=406) 25 % MONOCYTES RELATIVE PERCENT (BEAKER) (test frqv=059) 12 % EOSINOPHILS RELATIVE PERCENT (BEAKER) (test mjaq=727) 5 % BASOPHILS RELATIVE PERCENT (BEAKER) (test pnhv=327) 0 % NEUTROPHILS ABSOLUTE COUNT (BEAKER) (test wvvc=698) 2.66 K/ L 1.56-6.13 LYMPHOCYTES ABSOLUTE COUNT (BEAKER) (test ninj=549) 1.12 K/ L 1.18-3.74 MONOCYTES ABSOLUTE COUNT (BEAKER) (test cbef=426) 0.54 K/ L 0.24-0.36 EOSINOPHILS ABSOLUTE COUNT (BEAKER) (test snnv=871) 0.21 K/ L 0.04-0.36 BASOPHILS ABSOLUTE COUNT (BEAKER) (test ndna=426) 0.02 K/ L 0.01-0.08 IMMATURE GRANULOCYTES-RELATIVE PERCENT (BEAKER) (test 0 % 0-1 ksxu=0300) [id number] 06:04:00 Test Item Value Reference Range Comments MAGNESIUM (BEAKER) (test goxj=654) 1.9 mg/dL 1.6-2.6 BASIC METABOLIC [id number] 06:04:00 Test Item Value Reference Range Comments SODIUM (BEAKER) (test 135 meq/L 136-145 ahfm=881) POTASSIUM (BEAKER) (test 3.3 meq/L 3.5-5.1 fnma=595) CHLORIDE (BEAKER) (test 103 meq/L 98-107 dffp=433) CO2 (BEAKER) (test 23 meq/L 22-29 rihd=176) BLOOD UREA NITROGEN 9 mg/dL 7-21 (BEAKER) (test hhsb=161) CREATININE (BEAKER) (test 0.84 mg/dL 0.57-1.25 ordh=246) GLUCOSE RANDOM (BEAKER) 87 mg/dL 70-105 (test ipfh=847) CALCIUM (BEAKER) (test 8.2 mg/dL 8.4-10.2 gzwt=165) EGFR (BEAKER) (test 67 mL/min/1.73 sq m ESTIMATED GFR IS NOT dgwk=9219) ACCURATE CREATININE CLEARANCE IN PREDICTING GLOMERULAR FILTRATION RATE. ESTIMATED GFR IS NOT APPLICABLE FOR DIALYSIS PATIENTS. HEMOGLOBIN AND [id number] 14:48:00 Test Item Value Reference Range Comments HEMOGLOBIN (BEAKER) (test pvhf=634) 7.4 GM/DL 11.2-15.7 HEMATOCRIT (BEAKER) (test lesr=723) 25.9 % 34.1-44.9 BASIC METABOLIC [id number] 08:59:00 Test Item Value Reference Range Comments SODIUM (BEAKER) (test 134 meq/L 136-145 oxuw=113) POTASSIUM (BEAKER) (test 3.5 meq/L 3.5-5.1 vyye=033) CHLORIDE (BEAKER) (test 106 meq/L 98-107 wbhp=866) CO2 (BEAKER) (test 20 meq/L 22-29 jjfi=206) BLOOD UREA NITROGEN 13 mg/dL 7-21 (BEAKER) (test doqc=964) CREATININE (BEAKER) (test 0.92 mg/dL 0.57-1.25 htqw=022) GLUCOSE RANDOM (BEAKER) 122 mg/dL 70-105 (test yefp=082) CALCIUM (BEAKER) (test 8.3 mg/dL 8.4-10.2 qbjr=012) EGFR (BEAKER) (test 60 mL/min/1.73 sq m ESTIMATED GFR IS NOT xdoz=8162) ACCURATE CREATININE CLEARANCE IN PREDICTING GLOMERULAR FILTRATION RATE. ESTIMATED GFR IS NOT APPLICABLE FOR DIALYSIS PATIENTS. HEMOGLOBIN AND [id number] 08:43:00 Test Item Value Reference Range Comments HEMOGLOBIN (BEAKER) (test rior=065) 7.7 GM/DL 11.2-15.7 HEMATOCRIT (BEAKER) (test atfm=652) 26.7 % 34.1-44.9 HEMOGLOBIN AND [id number] 02:15:00 Test Item Value Reference Range Comments HEMOGLOBIN (BEAKER) (test dtnh=068) 6.2 GM/DL 11.2-15.7 HEMATOCRIT (BEAKER) (test rfzi=622) 22.2 % 34.1-44.9 [id number] 01:43:00 Test Item Value Reference Range Comments MAGNESIUM (BEAKER) (test nnnf=268) 1.6 mg/dL 1.6-2.6 BASIC METABOLIC [id number] 01:43:00 Test Item Value Reference Range Comments SODIUM (BEAKER) (test 136 meq/L 136-145 duht=447) POTASSIUM (BEAKER) (test 3.7 meq/L 3.5-5.1 uvei=772) CHLORIDE (BEAKER) (test 106 meq/L 98-107 hsxa=025) CO2 (BEAKER) (test 23 meq/L 22-29 uboq=330) BLOOD UREA NITROGEN 16 mg/dL 7-21 (BEAKER) (test aabp=830) CREATININE (BEAKER) (test 1.02 mg/dL 0.57-1.25 ionz=163) GLUCOSE RANDOM (BEAKER) 98 mg/dL 70-105 (test hnul=941) CALCIUM (BEAKER) (test 8.6 mg/dL 8.4-10.2 hdfm=012) EGFR (BEAKER) (test 53 mL/min/1.73 sq m ESTIMATED GFR IS NOT vcgz=5408) ACCURATE CREATININE CLEARANCE IN PREDICTING GLOMERULAR FILTRATION RATE. ESTIMATED GFR IS NOT APPLICABLE FOR DIALYSIS PATIENTS. CBC (HEMOGRAM ONLY)2018-10-28 01:04:00 Test Item Value Reference Range Comments WHITE BLOOD CELL COUNT (BEAKER) (test nadz=228) 5.1 K/ L 3.5-10.5 RED BLOOD CELL COUNT (BEAKER) (test mttg=638) 3.12 M/ L 3.93-5.22 HEMOGLOBIN (BEAKER) (test kwcf=603) 6.5 GM/DL 11.2-15.7 HEMATOCRIT (BEAKER) (test ambf=402) 24.0 % 34.1-44.9 MEAN CORPUSCULAR VOLUME (BEAKER) (test hilf=163) 76.9 fL 79.4-94.8 MEAN CORPUSCULAR HEMOGLOBIN (BEAKER) (test 20.8 pg 25.6-32.2 kbkj=482) MEAN CORPUSCULAR HEMOGLOBIN CONC (BEAKER) (test 27.1 GM/DL 32.2-35.5 ftxj=123) RED CELL DISTRIBUTION WIDTH (BEAKER) (test 18.8 % 11.7-14.4 jzcw=930) PLATELET COUNT (BEAKER) (test fzzf=564) 177 K/CU MM 150-450 MEAN PLATELET VOLUME (BEAKER) (test jdot=240) 12.8 fL 9.4-12.3 NUCLEATED RED BLOOD CELLS (BEAKER) (test 0 /100 WBC 0-0 njxw=624) PLATELET AGGREGATION: FUNCTION [id number] 19:33:00 Test Item Value Reference Range Comments WEAK ADP RESULT(BEAKER) (test 98 % 60-91 icsq=8811) PLATELET FUNCTION SCREEN 60-100% indicates normal INTERP (BEAKER) (test platelet function huje=3927) [id number] (BEAKER) Ema Londono MD (electronic (test zdyq=7964) signature) PLATELET COUNT AGG (BEAKER) 171 K/CU MM 150-450 (test dnby=9241) Platelet Function Screen results may be falsely low with platelet counts<100, 000/cu mm.for patients on clopidogrel in past two weeksfor patients on clopidogrel in past two weeksfor patients on clopidogrel in past two weeksHGB/ HCT (H&H) - STAT [id number] 11:58:00 Test Item Value Reference Range Comments HEMOGLOBIN (BEAKER) (test srhp=950) 7.6 g/dL 12.0-15.0 HEMATOCRIT (BEAKER) (test mzod=872) 22.0 % 36.0-45.0 GLUCOSE-STAT [id number] 11:57:00 Test Item Value Reference Range Comments GLUCOSE RANDOM (BEAKER) (test kgvs=610) 96 mg/dL 70-110 POTASSIUM-STAT [id number] 11:57:00 Test Item Value Reference Range Comments POTASSIUM (BEAKER) (test itcd=007) 3.8 meq/L 3.6-5.5 POTASSIUM-STAT [id number] 09:09:00 Test Item Value Reference Range Comments POTASSIUM (BEAKER) (test bwri=320) 3.6 meq/L 3.6-5.5 BLOOD GAS, [id number] 09:09:00 Test Item Value Reference Range Comments PH ARTERIAL (BEAKER) (test fohl=176) 7.32 7.35-7.45 PCO2 ARTERIAL (BEAKER) (test amds=323) 46 mmHg 35-45 PO2 ARTERIAL (BEAKER) (test pkni=177) 274 mmHg 80-90 O2 SATURATION ARTERIAL (BEAKER) (test wlla=416) 99.6 % 96.0-97.0 HCO3 ARTERIAL (BEAKER) (test jrpc=209) 23 mmol/L 21-29 BASE EXCESS ARTERIAL (BEAKER) (test diij=749) -3.2 mmol/L -2.0-3.0 PATIENT TEMPERATURE (BEAKER) (test faqx=7130) 36.0 C FIO2 (BEAKER) (test idyb=2440) 100.0 % GLUCOSE-STAT [id number] 09:09:00 Test Item Value Reference Range Comments GLUCOSE RANDOM (BEAKER) (test qyjb=831) 112 mg/dL 70-110 HGB/HCT (H&H) - STAT [id number] 09:09:00 Test Item Value Reference Range Comments HEMOGLOBIN (BEAKER) (test tdzi=806) 7.5 g/dL 12.0-15.0 HEMATOCRIT (BEAKER) (test wjde=228) 22.0 % 36.0-45.0 CALCIUM, [id number] 09:09:00 Test Item Value Reference Range Comments CALCIUM IONIZED (BEAKER) (test vcsi=661) 1.04 mmol/L 1.12-1.27 PH, BLOOD (BEAKER) (test nbag=5197) 7.30 SODIUM NA-STAT [id number] 09:08:00 Test Item Value Reference Range Comments SODIUM (BEAKER) (test mite=637) 138 meq/L 135-148 POCT-GLUCOSE [id number] 06:33:00 Test Item Value Reference Range Comments POC-GLUCOSE METER (BEAKER) 110 mg/dL 70-110 TESTED AT [facility] [address] (test yorm=0758) [facility] [address] RAD, CHEST, 2 [id number] 13:20:00Reason for exam:->pre op screenFINAL REPORT Chest [...] Maurice Verified Date/Time: 10/26/2018 13:20:52 Reading Location: [address] Consult Reading Room LIPID [id number] 12:51:00 Test Item Value Reference Range Comments TRIGLYCERIDES (BEAKER) (test yxbd=327) 110 mg/dL CHOLESTEROL (BEAKER) (test bkoq=145) 203 mg/dL HDL CHOLESTEROL (BEAKER) (test prin=930) 74 mg/dL LDL CHOLESTEROL CALCULATED (BEAKER) (test 107 mg/dL svlo=821) Triglyceride Reference Range: Low Risk <150 Borderline 150- 199 High Risk 200-499 Very High Risk >=500Cholesterol Reference Range: Low Risk <200 Borderline 200-239 High Risk > 240HDL Cholesterol Reference Range: Low Risk >=60 High Risk <40LDL Cholesterol Reference Range: Optimal <100 Near Optimal 100-129 Borderline 130-159 High 160-189 Very High >=190BASIC METABOLIC [id number] 12:51:00 Test Item Value Reference Range Comments SODIUM (BEAKER) (test 139 meq/L 136-145 dcwj=010) POTASSIUM (BEAKER) (test 4.0 meq/L 3.5-5.1 qymt=867) CHLORIDE (BEAKER) (test 105 meq/L 98-107 fupt=821) CO2 (BEAKER) (test 23 meq/L 22-29 gvqm=252) BLOOD UREA NITROGEN 17 mg/dL 7-21 (BEAKER) (test xjqn=147) CREATININE (BEAKER) (test 1.05 mg/dL 0.57-1.25 cgkz=097) GLUCOSE RANDOM (BEAKER) 85 mg/dL 70-105 (test wwhp=364) CALCIUM (BEAKER) (test 9.5 mg/dL 8.4-10.2 utgk=911) EGFR (BEAKER) (test 52 mL/min/1.73 sq m ESTIMATED GFR IS NOT ntbc=4001) ACCURATE CREATININE CLEARANCE IN PREDICTING GLOMERULAR FILTRATION RATE. ESTIMATED GFR IS NOT APPLICABLE FOR DIALYSIS PATIENTS. CBC W/PLT COUNT & AUTO [id number] 12:47:00 Test Item Value Reference Range Comments WHITE BLOOD CELL COUNT (BEAKER) (test ogzn=094) 6.4 K/ L 3.5-10.5 RED BLOOD CELL COUNT (BEAKER) (test mwnu=782) 3.53 M/ L 3.93-5.22 HEMOGLOBIN (BEAKER) (test sszu=290) 7.5 GM/DL 11.2-15.7 HEMATOCRIT (BEAKER) (test orot=967) 27.3 % 34.1-44.9 MEAN CORPUSCULAR VOLUME (BEAKER) (test gdue=681) 77.3 fL 79.4-94.8 MEAN CORPUSCULAR HEMOGLOBIN (BEAKER) (test 21.2 pg 25.6-32.2 rdny=777) MEAN CORPUSCULAR HEMOGLOBIN CONC (BEAKER) (test 27.5 GM/DL 32.2-35.5 mddb=960) RED CELL DISTRIBUTION WIDTH (BEAKER) (test 18.4 % 11.7-14.4 mdaj=127) PLATELET COUNT (BEAKER) (test flrw=116) 189 K/CU MM 150-450 MEAN PLATELET VOLUME (BEAKER) (test eqyl=309) 12.3 fL 9.4-12.3 NUCLEATED RED BLOOD CELLS (BEAKER) (test 0 /100 WBC 0-0 lzmn=034) NEUTROPHILS RELATIVE PERCENT (BEAKER) (test 61 % npec=388) LYMPHOCYTES RELATIVE PERCENT (BEAKER) (test 25 % gglc=501) MONOCYTES RELATIVE PERCENT (BEAKER) (test 9 % mndj=151) EOSINOPHILS RELATIVE PERCENT (BEAKER) (test 4 % hjur=342) BASOPHILS RELATIVE PERCENT (BEAKER) (test 1 % bzrd=891) NEUTROPHILS ABSOLUTE COUNT (BEAKER) (test 3.90 K/ L 1.56-6.13 bubm=107) LYMPHOCYTES ABSOLUTE COUNT (BEAKER) (test 1.62 K/ L 1.18-3.74 hjfe=640) MONOCYTES ABSOLUTE COUNT (BEAKER) (test 0.56 K/ L 0.24-0.36 toey=551) EOSINOPHILS ABSOLUTE COUNT (BEAKER) (test 0.24 K/ L 0.04-0.36 uvyx=685) BASOPHILS ABSOLUTE COUNT (BEAKER) (test 0.04 K/ L 0.01-0.08 cldp=256) IMMATURE GRANULOCYTES-RELATIVE PERCENT (BEAKER) 1 % 0-1 (test mnnv=3854) PROTHROMBIN [id number] 12:45:00 Test Item Value Reference Range Comments PROTIME (BEAKER) (test bxdi=815) 13.1 seconds 11.7-14.7 INR (BEAKER) (test qnba=521) 1.0 <=5.9 RECOMMENDED COUMADIN/WARFARIN INR THERAPY RANGESSTANDARD DOSE: 2.0 - 3.0 Includes: PROPHYLAXIS forvenous thrombosis, systemic embolization; TREATMENT for venous thrombosis and/or pulmonary embolus.HIGH RISK: Target INR is 2.5-3.5 for patients with mechanical heart valves.[id number] 07:41:00 Test Item Value Reference Range Comments MAGNESIUM (BEAKER) (test kbbk=286) 1.9 mg/dL 1.6-2.6 BASIC METABOLIC [id number] 07:41:00 Test Item Value Reference Range Comments SODIUM (BEAKER) (test 137 meq/L 136-145 grsl=148) POTASSIUM (BEAKER) (test 3.5 meq/L 3.5-5.1 fued=300) CHLORIDE (BEAKER) (test 100 meq/L 98-107 iytg=740) CO2 (BEAKER) (test 24 meq/L 22-29 pqqp=126) BLOOD UREA NITROGEN 13 mg/dL 7-21 (BEAKER) (test vify=673) CREATININE (BEAKER) (test 0.80 mg/dL 0.57-1.25 ttya=207) GLUCOSE RANDOM (BEAKER) 71 mg/dL 70-105 (test qcek=798) CALCIUM (BEAKER) (test 9.5 mg/dL 8.4-10.2 axdb=927) EGFR (BEAKER) (test 71 mL/min/1.73 sq m ESTIMATED GFR IS NOT altv=7880) ACCURATE CREATININE CLEARANCE IN PREDICTING GLOMERULAR FILTRATION RATE. ESTIMATED GFR IS NOT APPLICABLE FOR DIALYSIS PATIENTS. CBC W/PLT COUNT & AUTO [id number] 07:12:00 Test Item Value Reference Range Comments WHITE BLOOD CELL COUNT (BEAKER) (test uozm=026) 5.3 K/ L 3.5-10.5 RED BLOOD CELL COUNT (BEAKER) (test ahob=791) 3.76 M/ L 3.93-5.22 HEMOGLOBIN (BEAKER) (test nicj=269) 10.1 GM/DL 11.2-15.7 HEMATOCRIT (BEAKER) (test lmmr=981) 33.1 % 34.1-44.9 MEAN CORPUSCULAR VOLUME (BEAKER) (test ajlb=006) 88.0 fL 79.4-94.8 MEAN CORPUSCULAR HEMOGLOBIN (BEAKER) (test 26.9 pg 25.6-32.2 nvqe=932) MEAN CORPUSCULAR HEMOGLOBIN CONC (BEAKER) (test 30.5 GM/DL 32.2-35.5 dpxq=285) RED CELL DISTRIBUTION WIDTH (BEAKER) (test 14.4 % 11.7-14.4 dhfd=743) PLATELET COUNT (BEAKER) (test rsvg=643) 218 K/CU MM 150-450 MEAN PLATELET VOLUME (BEAKER) (test elbw=253) 12.7 fL 9.4-12.3 NUCLEATED RED BLOOD CELLS (BEAKER) (test 0 /100 WBC 0-0 vezn=046) NEUTROPHILS RELATIVE PERCENT (BEAKER) (test 68 % euet=924) LYMPHOCYTES RELATIVE PERCENT (BEAKER) (test 19 % zxdv=829) MONOCYTES RELATIVE PERCENT (BEAKER) (test 9 % xtqf=659) EOSINOPHILS RELATIVE PERCENT (BEAKER) (test 3 % anli=119) BASOPHILS RELATIVE PERCENT (BEAKER) (test 1 % cscv=052) NEUTROPHILS ABSOLUTE COUNT (BEAKER) (test 3.59 K/ L 1.56-6.13 xqbp=767) LYMPHOCYTES ABSOLUTE COUNT (BEAKER) (test 0.97 K/ L 1.18-3.74 obfg=102) MONOCYTES ABSOLUTE COUNT (BEAKER) (test 0.46 K/ L 0.24-0.36 kqgr=409) EOSINOPHILS ABSOLUTE COUNT (BEAKER) (test 0.13 K/ L 0.04-0.36 gotj=257) BASOPHILS ABSOLUTE COUNT (BEAKER) (test 0.03 K/ L 0.01-0.08 wgkp=008) IMMATURE GRANULOCYTES-RELATIVE PERCENT (BEAKER) 1 % 0-1 (test pvqg=3681) [id number] 07:19:00 Test Item Value Reference Range Comments FERRITIN (BEAKER) (test sfcs=677) 45 ng/mL 5-275 IRON, TIBC, % SAT. (WITHOUT FERRITIN)2018-02-12 07:01:00 Test Item Value Reference Range Comments IRON (BEAKER) (test qseu=457) 41 ug/dL 40-160 TOTAL IRON BINDING CAPACITY (BEAKER) (test 289 ug/dL 250-450 nbuh=181) IRON % SATURATION (2) (BEAKER) (test tdco=9499) 14 % 20-55 [id number] 06:41:00 Test Item Value Reference Range Comments MAGNESIUM (BEAKER) (test kzmj=436) 1.9 mg/dL 1.6-2.6 BASIC METABOLIC [id number] 06:41:00 Test Item Value Reference Range Comments SODIUM (BEAKER) (test 135 meq/L 136-145 erxx=284) POTASSIUM (BEAKER) (test 3.5 meq/L 3.5-5.1 srmv=242) CHLORIDE (BEAKER) (test 97 meq/L 98-107 qymm=859) CO2 (BEAKER) (test 26 meq/L 22-29 xkdj=367) BLOOD UREA NITROGEN 14 mg/dL 7-21 (BEAKER) (test lgor=825) CREATININE (BEAKER) (test 0.87 mg/dL 0.57-1.25 uauk=628) GLUCOSE RANDOM (BEAKER) 91 mg/dL 70-105 (test znhc=241) CALCIUM (BEAKER) (test 9.5 mg/dL 8.4-10.2 vetf=580) EGFR (BEAKER) (test 64 mL/min/1.73 sq m ESTIMATED GFR IS NOT lyqe=2312) ACCURATE CREATININE CLEARANCE IN PREDICTING GLOMERULAR FILTRATION RATE. ESTIMATED GFR IS NOT APPLICABLE FOR DIALYSIS PATIENTS. CBC W/PLT COUNT & AUTO [id number] 06:20:00 Test Item Value Reference Range Comments WHITE BLOOD CELL COUNT (BEAKER) (test zxux=301) 5.7 K/ L 3.5-10.5 RED BLOOD CELL COUNT (BEAKER) (test nznx=425) 3.60 M/ L 3.93-5.22 HEMOGLOBIN (BEAKER) (test yqlo=920) 9.7 GM/DL 11.2-15.7 HEMATOCRIT (BEAKER) (test hpea=499) 31.2 % 34.1-44.9 MEAN CORPUSCULAR VOLUME (BEAKER) (test bwrt=695) 86.7 fL 79.4-94.8 MEAN CORPUSCULAR HEMOGLOBIN (BEAKER) (test 26.9 pg 25.6-32.2 jxvi=643) MEAN CORPUSCULAR HEMOGLOBIN CONC (BEAKER) (test 31.1 GM/DL 32.2-35.5 hmuw=405) RED CELL DISTRIBUTION WIDTH (BEAKER) (test 14.5 % 11.7-14.4 tpto=478) PLATELET COUNT (BEAKER) (test nwzu=379) 208 K/CU MM 150-450 MEAN PLATELET VOLUME (BEAKER) (test eftn=066) 12.7 fL 9.4-12.3 NUCLEATED RED BLOOD CELLS (BEAKER) (test 0 /100 WBC 0-0 aofz=359) NEUTROPHILS RELATIVE PERCENT (BEAKER) (test 68 % teqh=765) LYMPHOCYTES RELATIVE PERCENT (BEAKER) (test 19 % grqe=282) MONOCYTES RELATIVE PERCENT (BEAKER) (test 8 % ekic=913) EOSINOPHILS RELATIVE PERCENT (BEAKER) (test 3 % gooo=318) BASOPHILS RELATIVE PERCENT (BEAKER) (test 1 % ytrw=306) NEUTROPHILS ABSOLUTE COUNT (BEAKER) (test 3.90 K/ L 1.56-6.13 wtsi=748) LYMPHOCYTES ABSOLUTE COUNT (BEAKER) (test 1.08 K/ L 1.18-3.74 wqca=839) MONOCYTES ABSOLUTE COUNT (BEAKER) (test 0.48 K/ L 0.24-0.36 cklx=970) EOSINOPHILS ABSOLUTE COUNT (BEAKER) (test 0.17 K/ L 0.04-0.36 ryvt=266) BASOPHILS ABSOLUTE COUNT (BEAKER) (test 0.03 K/ L 0.01-0.08 xdhu=687) IMMATURE GRANULOCYTES-RELATIVE PERCENT (BEAKER) 1 % 0-1 (test drhx=8994) [id number] 06:02:00 Test Item Value Reference Range Comments MAGNESIUM (BEAKER) (test frrt=990) 1.8 mg/dL 1.6-2.6 BASIC METABOLIC [id number] 06:02:00 Test Item Value Reference Range Comments SODIUM (BEAKER) (test 135 meq/L 136-145 dtkf=429) POTASSIUM (BEAKER) (test 3.4 meq/L 3.5-5.1 hbsw=911) CHLORIDE (BEAKER) (test 97 meq/L 98-107 vdbh=160) CO2 (BEAKER) (test 28 meq/L 22-29 zknr=979) BLOOD UREA NITROGEN 19 mg/dL 7-21 (BEAKER) (test lgum=189) CREATININE (BEAKER) (test 1.04 mg/dL 0.57-1.25 phel=520) GLUCOSE RANDOM (BEAKER) 98 mg/dL 70-105 (test dier=673) CALCIUM (BEAKER) (test 9.6 mg/dL 8.4-10.2 kjvt=935) EGFR (BEAKER) (test 52 mL/min/1.73 sq m ESTIMATED GFR IS NOT mnjc=9241) ACCURATE CREATININE CLEARANCE IN PREDICTING GLOMERULAR FILTRATION RATE. ESTIMATED GFR IS NOT APPLICABLE FOR DIALYSIS PATIENTS. CBC W/PLT COUNT & AUTO [id number] 05:35:00 Test Item Value Reference Range Comments WHITE BLOOD CELL COUNT (BEAKER) (test hepp=586) 5.8 K/ L 3.5-10.5 RED BLOOD CELL COUNT (BEAKER) (test gmse=854) 3.58 M/ L 3.93-5.22 HEMOGLOBIN (BEAKER) (test cwrf=492) 9.9 GM/DL 11.2-15.7 HEMATOCRIT (BEAKER) (test egjj=456) 31.5 % 34.1-44.9 MEAN CORPUSCULAR VOLUME (BEAKER) (test hsvi=654) 88.0 fL 79.4-94.8 MEAN CORPUSCULAR HEMOGLOBIN (BEAKER) (test 27.7 pg 25.6-32.2 dgyz=642) MEAN CORPUSCULAR HEMOGLOBIN CONC (BEAKER) (test 31.4 GM/DL 32.2-35.5 fcrj=142) RED CELL DISTRIBUTION WIDTH (BEAKER) (test 14.5 % 11.7-14.4 hfwy=948) PLATELET COUNT (BEAKER) (test gglo=939) 183 K/CU MM 150-450 MEAN PLATELET VOLUME (BEAKER) (test mfsi=016) 12.1 fL 9.4-12.3 NUCLEATED RED BLOOD CELLS (BEAKER) (test 0 /100 WBC 0-0 qaok=412) NEUTROPHILS RELATIVE PERCENT (BEAKER) (test 68 % garq=102) LYMPHOCYTES RELATIVE PERCENT (BEAKER) (test 18 % qqxy=499) MONOCYTES RELATIVE PERCENT (BEAKER) (test 9 % xwri=543) EOSINOPHILS RELATIVE PERCENT (BEAKER) (test 4 % uwsy=361) BASOPHILS RELATIVE PERCENT (BEAKER) (test 1 % kfhk=354) NEUTROPHILS ABSOLUTE COUNT (BEAKER) (test 3.90 K/ L 1.56-6.13 dtil=807) LYMPHOCYTES ABSOLUTE COUNT (BEAKER) (test 1.05 K/ L 1.18-3.74 dzji=426) MONOCYTES ABSOLUTE COUNT (BEAKER) (test 0.51 K/ L 0.24-0.36 apfn=613) EOSINOPHILS ABSOLUTE COUNT (BEAKER) (test 0.20 K/ L 0.04-0.36 zhzq=280) BASOPHILS ABSOLUTE COUNT (BEAKER) (test 0.03 K/ L 0.01-0.08 exfc=710) IMMATURE GRANULOCYTES-RELATIVE PERCENT (BEAKER) 1 % 0-1 (test adpu=4291) MR, SPINE, LUMBAR, WITHOUT [id number] 14:56:00FINAL REPORT MRI of the lumbar spine [...] Catrachita Calle Verified Date/Time: 02/10/2018 14:56:55Reading Location: [address] Consult Reading Room MR, SPINE, THORACIC, WITHOUT [id number] 14:43: 00FINAL REPORT MRI of the thoracic [...] Calle Verified Date/Time: 02/10/2018 14:43:52 Reading Location: [address] Consult Reading Room [id number] 04:38:00 Test Item Value Reference Range Comments MAGNESIUM (BEAKER) (test ytgy=197) 2.1 mg/dL 1.6-2.6 BASIC METABOLIC [id number] 04:38:00 Test Item Value Reference Range Comments SODIUM (BEAKER) (test 137 meq/L 136-145 ljgl=961) POTASSIUM (BEAKER) (test 3.4 meq/L 3.5-5.1 byku=366) CHLORIDE (BEAKER) (test 96 meq/L 98-107 xswm=793) CO2 (BEAKER) (test 30 meq/L 22-29 rewn=029) BLOOD UREA NITROGEN 15 mg/dL 7-21 (BEAKER) (test bumm=156) CREATININE (BEAKER) (test 1.04 mg/dL 0.57-1.25 zfdn=105) GLUCOSE RANDOM (BEAKER) 92 mg/dL 70-105 (test hmor=153) CALCIUM (BEAKER) (test 9.9 mg/dL 8.4-10.2 nnhx=389) EGFR (BEAKER) (test 52 mL/min/1.73 sq m ESTIMATED GFR IS NOT mkue=1886) ACCURATE CREATININE CLEARANCE IN PREDICTING GLOMERULAR FILTRATION RATE. ESTIMATED GFR IS NOT APPLICABLE FOR DIALYSIS PATIENTS. CBC W/PLT COUNT & AUTO [id number] 04:21:00 Test Item Value Reference Range Comments WHITE BLOOD CELL COUNT (BEAKER) (test vucf=810) 6.7 K/ L 3.5-10.5 RED BLOOD CELL COUNT (BEAKER) (test jwxr=907) 3.53 M/ L 3.93-5.22 HEMOGLOBIN (BEAKER) (test uzqk=884) 9.3 GM/DL 11.2-15.7 HEMATOCRIT (BEAKER) (test xwia=726) 31.0 % 34.1-44.9 MEAN CORPUSCULAR VOLUME (BEAKER) (test mzye=248) 87.8 fL 79.4-94.8 MEAN CORPUSCULAR HEMOGLOBIN (BEAKER) (test 26.3 pg 25.6-32.2 iuqn=800) MEAN CORPUSCULAR HEMOGLOBIN CONC (BEAKER) (test 30.0 GM/DL 32.2-35.5 padm=516) RED CELL DISTRIBUTION WIDTH (BEAKER) (test 14.6 % 11.7-14.4 qqjg=243) PLATELET COUNT (BEAKER) (test flyo=064) 208 K/CU MM 150-450 MEAN PLATELET VOLUME (BEAKER) (test ritz=688) 12.6 fL 9.4-12.3 NUCLEATED RED BLOOD CELLS (BEAKER) (test 0 /100 WBC 0-0 eefg=444) NEUTROPHILS RELATIVE PERCENT (BEAKER) (test 67 % ribr=230) LYMPHOCYTES RELATIVE PERCENT (BEAKER) (test 20 % duvt=184) MONOCYTES RELATIVE PERCENT (BEAKER) (test 10 % tkgj=559) EOSINOPHILS RELATIVE PERCENT (BEAKER) (test 2 % auna=187) BASOPHILS RELATIVE PERCENT (BEAKER) (test 0 % fwjb=241) NEUTROPHILS ABSOLUTE COUNT (BEAKER) (test 4.52 K/ L 1.56-6.13 flrg=290) LYMPHOCYTES ABSOLUTE COUNT (BEAKER) (test 1.34 K/ L 1.18-3.74 ciwo=873) MONOCYTES ABSOLUTE COUNT (BEAKER) (test 0.66 K/ L 0.24-0.36 hvhl=336) EOSINOPHILS ABSOLUTE COUNT (BEAKER) (test 0.13 K/ L 0.04-0.36 zgqs=195) BASOPHILS ABSOLUTE COUNT (BEAKER) (test 0.03 K/ L 0.01-0.08 dkgb=762) IMMATURE GRANULOCYTES-RELATIVE PERCENT (BEAKER) 1 % 0-1 (test psal=6133) URINALYSIS W/ REFLEX URINE [id number] 12:55:00 Test Item Value Reference Range Comments COLOR (BEAKER) (test lvha=188) Yellow CLARITY (BEAKER) (test zjgs=291) Clear SPECIFIC GRAVITY UA (BEAKER) (test tozc=872) 1.010 1.001-1.035 PH UA (BEAKER) (test xiir=741) 5.5 5.0-8.0 PROTEIN UA (BEAKER) (test qkzb=354) Negative Negative GLUCOSE UA (BEAKER) (test ebfw=244) Negative Negative KETONES UA (BEAKER) (test zejn=178) Negative Negative BILIRUBIN UA (BEAKER) (test wvfr=745) Negative Negative BLOOD UA (BEAKER) (test jeem=179) Negative Negative NITRITE UA (BEAKER) (test ahez=282) Negative Negative LEUKOCYTE ESTERASE UA (BEAKER) (test otko=209) Negative Negative UROBILINOGEN UA (BEAKER) (test tyis=959) 0.2 mg/dL 0.2-1.0 RBC UA (BEAKER) (test xurh=531) < /HPF WBC UA (BEAKER) (test cncr=836) 1 /HPF MUCUS (BEAKER) (test aqmz=4178) Rare SQUAMOUS EPITHELIAL (BEAKER) (test mxlp=619) 1 /HPF HYALINE CASTS (BEAKER) (test eikh=785) 2 /LPF SOURCE(BEAKER) (test kzyd=2095) [id number] 05:52:00 Test Item Value Reference Range Comments MAGNESIUM (BEAKER) (test tqrz=885) 2.1 mg/dL 1.6-2.6 BASIC METABOLIC [id number] 05:52:00 Test Item Value Reference Range Comments SODIUM (BEAKER) (test 137 meq/L 136-145 vqjd=574) POTASSIUM (BEAKER) (test 3.5 meq/L 3.5-5.1 jayd=335) CHLORIDE (BEAKER) (test 98 meq/L 98-107 uxxm=921) CO2 (BEAKER) (test 28 meq/L 22-29 cpms=289) BLOOD UREA NITROGEN 15 mg/dL 7-21 (BEAKER) (test tvwe=099) CREATININE (BEAKER) (test 1.03 mg/dL 0.57-1.25 ehlp=680) GLUCOSE RANDOM (BEAKER) 97 mg/dL 70-105 (test qyfb=033) CALCIUM (BEAKER) (test 9.8 mg/dL 8.4-10.2 aexw=269) EGFR (BEAKER) (test 53 mL/min/1.73 sq m ESTIMATED GFR IS NOT qmue=5230) ACCURATE CREATININE CLEARANCE IN PREDICTING GLOMERULAR FILTRATION RATE. ESTIMATED GFR IS NOT APPLICABLE FOR DIALYSIS PATIENTS. CBC W/PLT COUNT & AUTO [id number] 05:33:00 Test Item Value Reference Range Comments WHITE BLOOD CELL COUNT (BEAKER) (test dkpu=932) 5.9 K/ L 3.5-10.5 RED BLOOD CELL COUNT (BEAKER) (test hjag=045) 3.83 M/ L 3.93-5.22 HEMOGLOBIN (BEAKER) (test lxzr=149) 10.2 GM/DL 11.2-15.7 HEMATOCRIT (BEAKER) (test vlwm=249) 33.5 % 34.1-44.9 MEAN CORPUSCULAR VOLUME (BEAKER) (test xpxw=071) 87.5 fL 79.4-94.8 MEAN CORPUSCULAR HEMOGLOBIN (BEAKER) (test 26.6 pg 25.6-32.2 hsce=877) MEAN CORPUSCULAR HEMOGLOBIN CONC (BEAKER) (test 30.4 GM/DL 32.2-35.5 mune=564) RED CELL DISTRIBUTION WIDTH (BEAKER) (test 14.6 % 11.7-14.4 iacu=260) PLATELET COUNT (BEAKER) (test pkgw=364) 182 K/CU MM 150-450 MEAN PLATELET VOLUME (BEAKER) (test nihl=806) 12.6 fL 9.4-12.3 NUCLEATED RED BLOOD CELLS (BEAKER) (test 0 /100 WBC 0-0 xqvw=964) NEUTROPHILS RELATIVE PERCENT (BEAKER) (test 67 % dwok=170) LYMPHOCYTES RELATIVE PERCENT (BEAKER) (test 20 % uwnz=890) MONOCYTES RELATIVE PERCENT (BEAKER) (test 8 % uwcm=206) EOSINOPHILS RELATIVE PERCENT (BEAKER) (test 3 % tfhx=991) BASOPHILS RELATIVE PERCENT (BEAKER) (test 1 % xbnp=652) NEUTROPHILS ABSOLUTE COUNT (BEAKER) (test 3.99 K/ L 1.56-6.13 wmyo=981) LYMPHOCYTES ABSOLUTE COUNT (BEAKER) (test 1.20 K/ L 1.18-3.74 rynu=890) MONOCYTES ABSOLUTE COUNT (BEAKER) (test 0.49 K/ L 0.24-0.36 bboi=540) EOSINOPHILS ABSOLUTE COUNT (BEAKER) (test 0.15 K/ L 0.04-0.36 dadx=944) BASOPHILS ABSOLUTE COUNT (BEAKER) (test 0.04 K/ L 0.01-0.08 jskh=031) IMMATURE GRANULOCYTES-RELATIVE PERCENT (BEAKER) 1 % 0-1 (test jjwe=2204) VITAMIN B12 AND [id number] 06:37:00 Test Item Value Reference Range Comments VITAMIN B12 (BEAKER) (test vfhf=963) 460 pg/mL 213-816 FOLATE (BEAKER) (test wuiy=646) 4.2 ng/mL >=7.0 TSH/FREE T4 IF [id number] 06:22:00 Test Item Value Reference Range Comments THYROID STIMULATING HORMONE (BEAKER) (test 1.37 uIU/mL 0.35-4.94 pxuy=967) [id number] 06:16:00 Test Item Value Reference Range Comments PHOSPHORUS (BEAKER) (test xgof=487) 3.7 mg/dL 2.3-4.7 [id number] 06:16:00 Test Item Value Reference Range Comments MAGNESIUM (BEAKER) (test tuau=296) 1.9 mg/dL 1.6-2.6 BASIC METABOLIC [id number] 06:16:00 Test Item Value Reference Range Comments SODIUM (BEAKER) (test 135 meq/L 136-145 anvt=311) POTASSIUM (BEAKER) (test 3.6 meq/L 3.5-5.1 zqdf=485) CHLORIDE (BEAKER) (test 100 meq/L 98-107 ckjf=386) CO2 (BEAKER) (test 25 meq/L 22-29 iios=686) BLOOD UREA NITROGEN 16 mg/dL 7-21 (BEAKER) (test wukw=284) CREATININE (BEAKER) (test 0.89 mg/dL 0.57-1.25 eezu=231) GLUCOSE RANDOM (BEAKER) 94 mg/dL 70-105 (test lfip=706) CALCIUM (BEAKER) (test 9.2 mg/dL 8.4-10.2 arfp=041) EGFR (BEAKER) (test 63 mL/min/1.73 sq m ESTIMATED GFR IS NOT qwdn=4915) ACCURATE CREATININE CLEARANCE IN PREDICTING GLOMERULAR FILTRATION RATE. ESTIMATED GFR IS NOT APPLICABLE FOR DIALYSIS PATIENTS. LIPID [id number] 06:16:00 Test Item Value Reference Range Comments TRIGLYCERIDES (BEAKER) (test cesa=355) 71 mg/dL CHOLESTEROL (BEAKER) (test htup=253) 135 mg/dL HDL CHOLESTEROL (BEAKER) (test dfxy=876) 47 mg/dL LDL CHOLESTEROL CALCULATED (BEAKER) (test 74 mg/dL ikap=972) Triglyceride Reference Range: Low Risk <150 Borderline 150- 199 High Risk 200-499 Very High Risk >=500Cholesterol Reference Range: Low Risk <200 Borderline 200-239 High Risk > 240HDL Cholesterol Reference Range: Low Risk >=60 High Risk <40LDL Cholesterol Reference Range: Optimal <100 Near Optimal 100-129 Borderline 130-159 High 160-189 Very High >=190C-REACTIVE [id number] 06:16:00 Test Item Value Reference Range Comments C-REACTIVE PROTEIN (BEAKER) (test hedd=061) 7.42 mg/dL 0.00-0.50 CBC W/PLT COUNT & AUTO [id number] 05:44:00 Test Item Value Reference Range Comments WHITE BLOOD CELL COUNT (BEAKER) (test koxi=588) 5.6 K/ L 3.5-10.5 RED BLOOD CELL COUNT (BEAKER) (test xzxb=452) 3.35 M/ L 3.93-5.22 HEMOGLOBIN (BEAKER) (test avgk=024) 9.0 GM/DL 11.2-15.7 HEMATOCRIT (BEAKER) (test zggj=006) 29.6 % 34.1-44.9 MEAN CORPUSCULAR VOLUME (BEAKER) (test ipiv=379) 88.4 fL 79.4-94.8 MEAN CORPUSCULAR HEMOGLOBIN (BEAKER) (test 26.9 pg 25.6-32.2 gldo=604) MEAN CORPUSCULAR HEMOGLOBIN CONC (BEAKER) (test 30.4 GM/DL 32.2-35.5 zoym=773) RED CELL DISTRIBUTION WIDTH (BEAKER) (test 14.6 % 11.7-14.4 hdeb=197) PLATELET COUNT (BEAKER) (test kibu=728) 163 K/CU MM 150-450 MEAN PLATELET VOLUME (BEAKER) (test yuzw=385) 12.7 fL 9.4-12.3 NUCLEATED RED BLOOD CELLS (BEAKER) (test 0 /100 WBC 0-0 pvyj=491) NEUTROPHILS RELATIVE PERCENT (BEAKER) (test 67 % lupj=448) LYMPHOCYTES RELATIVE PERCENT (BEAKER) (test 19 % jaza=246) MONOCYTES RELATIVE PERCENT (BEAKER) (test 10 % plps=491) EOSINOPHILS RELATIVE PERCENT (BEAKER) (test 2 % sawu=751) BASOPHILS RELATIVE PERCENT (BEAKER) (test 1 % evgv=824) NEUTROPHILS ABSOLUTE COUNT (BEAKER) (test 3.72 K/ L 1.56-6.13 ucnv=602) LYMPHOCYTES ABSOLUTE COUNT (BEAKER) (test 1.08 K/ L 1.18-3.74 mzos=057) MONOCYTES ABSOLUTE COUNT (BEAKER) (test 0.58 K/ L 0.24-0.36 bzlx=565) EOSINOPHILS ABSOLUTE COUNT (BEAKER) (test 0.10 K/ L 0.04-0.36 amzu=338) BASOPHILS ABSOLUTE COUNT (BEAKER) (test 0.03 K/ L 0.01-0.08 pxkc=196) IMMATURE GRANULOCYTES-RELATIVE PERCENT (BEAKER) 1 % 0-1 (test aprk=2589) URINALYSIS W/ [id number] 20:50:00 Test Item Value Reference Range Comments COLOR (BEAKER) (test yizv=678) Yellow CLARITY (BEAKER) (test rllv=052) Clear SPECIFIC GRAVITY UA (BEAKER) (test jzns=902) 1.015 1.001-1.035 PH UA (BEAKER) (test knkm=924) 5.5 5.0-8.0 PROTEIN UA (BEAKER) (test hltg=442) Negative Negative GLUCOSE UA (BEAKER) (test mepb=462) Negative Negative KETONES UA (BEAKER) (test zupl=033) Negative Negative BILIRUBIN UA (BEAKER) (test dmby=226) Negative Negative BLOOD UA (BEAKER) (test zbub=912) Negative Negative NITRITE UA (BEAKER) (test sekr=581) Negative Negative LEUKOCYTE ESTERASE UA (BEAKER) (test nmyy=153) Large Negative UROBILINOGEN UA (BEAKER) (test tyml=990) 0.2 mg/dL 0.2-1.0 RBC UA (BEAKER) (test yqqa=428) 2 /HPF WBC UA (BEAKER) (test qzqr=672) 46 /HPF BACTERIA (BEAKER) (test btnj=978) Rare MUCUS (BEAKER) (test lthy=5832) Occasional SQUAMOUS EPITHELIAL (BEAKER) (test euet=177) 4 /HPF HYALINE CASTS (BEAKER) (test gbxo=545) 4 /LPF SOURCE(BEAKER) (test fhyz=5656) Urine, Voided MR, BRAIN, WITHOUT [id number] 19:27:00Reason for exam:->Ischemic Stroke EvaluationFINAL REPORT Exam: [...] Verified Date/Time: 02/07/2018 19:27:07 Reading Location: [address] Transitional Reading Room MR, MRA, BRAIN, WITHOUT [id number] 19:25:00Reason for exam:->Ischemic Stroke EvaluationFINAL REPORT MRA head and neck without contrast. CLINICAL HISTORY: Stroke. Ischemic stroke evaluation.. COMPARISON: None. TECHNIQUE: Two- and three-dimensional iyzt-ne-hfuxoq MRA images of the intra- and extracranial [...] Rodriguezort Verified Date/Time:02/07/2018 19:25:57 Reading Location: [address] Transitional Reading Room MR, MRA, NECK, WITHOUT IV [id number] 19:25:00Reason for exam:->Ischemic Stroke EvaluationFINAL REPORT MRA head and neck without contrast. CLINICAL HISTORY: Stroke. Ischemic stroke evaluation.. COMPARISON: None. TECHNIQUE: Two- and three-dimensional nrbr-ye-cmhbqn MRA images of the intra- and extracranial [...] Shane Rodriguez Verified Date/Time:02/07/2018 19:25:57 Reading Location: [address] Reading Room HEMOGLOBIN [id number] 12:15:00 Test Item Value Reference Range Comments HEMOGLOBIN A1C (BEAKER) (test cwsu=821) 6.0 % 4.3-6.1 TSH/FREE T4 IF [id number] 12:13:00 Test Item Value Reference Range Comments THYROID STIMULATING HORMONE (BEAKER) (test 1.43 uIU/mL 0.35-4.94 ggwj=867) LIPID [id number] 08:53:00 Test Item Value Reference Range Comments TRIGLYCERIDES (BEAKER) (test khvf=643) 67 mg/dL CHOLESTEROL (BEAKER) (test eape=962) 142 mg/dL HDL CHOLESTEROL (BEAKER) (test bnjr=373) 48 mg/dL LDL CHOLESTEROL CALCULATED (BEAKER) (test 81 mg/dL gudd=043) Triglyceride Reference Range: Low Risk <150 Borderline 150- 199 High Risk 200-499 Very High Risk >=500Cholesterol Reference Range: Low Risk <200 Borderline 200-239 High Risk > 240HDL Cholesterol Reference Range: Low Risk >=60 High Risk <40LDL Cholesterol Reference Range: Optimal <100 Near Optimal 100-129 Borderline 130-159 High 160-189 Very High >=190BASIC METABOLIC [id number] 08:53:00 Test Item Value Reference Range Comments SODIUM (BEAKER) (test 135 meq/L 136-145 jtlf=333) POTASSIUM (BEAKER) (test 3.6 meq/L 3.5-5.1 zilz=791) CHLORIDE (BEAKER) (test 101 meq/L 98-107 ejin=994) CO2 (BEAKER) (test 25 meq/L 22-29 llof=032) BLOOD UREA NITROGEN 15 mg/dL 7-21 (BEAKER) (test zblc=927) CREATININE (BEAKER) (test 0.86 mg/dL 0.57-1.25 ngwg=718) GLUCOSE RANDOM (BEAKER) 96 mg/dL 70-105 (test ipli=713) CALCIUM (BEAKER) (test 9.2 mg/dL 8.4-10.2 ojqe=298) EGFR (BEAKER) (test 65 mL/min/1.73 sq m ESTIMATED GFR IS NOT nwcv=0098) ACCURATE CREATININE CLEARANCE IN PREDICTING GLOMERULAR FILTRATION RATE. ESTIMATED GFR IS NOT APPLICABLE FOR DIALYSIS PATIENTS. CBC W/PLT COUNT & AUTO [id number] 08:43:00 Test Item Value Reference Range Comments WHITE BLOOD CELL COUNT (BEAKER) (test snkn=020) 5.8 K/ L 3.5-10.5 RED BLOOD CELL COUNT (BEAKER) (test hpmq=306) 3.43 M/ L 3.93-5.22 HEMOGLOBIN (BEAKER) (test zklp=354) 9.4 GM/DL 11.2-15.7 HEMATOCRIT (BEAKER) (test fedr=123) 30.0 % 34.1-44.9 MEAN CORPUSCULAR VOLUME (BEAKER) (test dtbg=440) 87.5 fL 79.4-94.8 MEAN CORPUSCULAR HEMOGLOBIN (BEAKER) (test 27.4 pg 25.6-32.2 lcrq=691) MEAN CORPUSCULAR HEMOGLOBIN CONC (BEAKER) (test 31.3 GM/DL 32.2-35.5 zoct=722) RED CELL DISTRIBUTION WIDTH (BEAKER) (test 14.8 % 11.7-14.4 nysn=532) PLATELET COUNT (BEAKER) (test loze=327) 166 K/CU MM 150-450 MEAN PLATELET VOLUME (BEAKER) (test boap=957) 12.5 fL 9.4-12.3 NUCLEATED RED BLOOD CELLS (BEAKER) (test 0 /100 WBC 0-0 nifu=033) NEUTROPHILS RELATIVE PERCENT (BEAKER) (test 65 % mhbl=746) LYMPHOCYTES RELATIVE PERCENT (BEAKER) (test 19 % bfwc=836) MONOCYTES RELATIVE PERCENT (BEAKER) (test 12 % etld=083) EOSINOPHILS RELATIVE PERCENT (BEAKER) (test 2 % qqqe=942) BASOPHILS RELATIVE PERCENT (BEAKER) (test 1 % uwlc=379) NEUTROPHILS ABSOLUTE COUNT (BEAKER) (test 3.77 K/ L 1.56-6.13 wnhw=592) LYMPHOCYTES ABSOLUTE COUNT (BEAKER) (test 1.10 K/ L 1.18-3.74 mscu=652) MONOCYTES ABSOLUTE COUNT (BEAKER) (test 0.72 K/ L 0.24-0.36 tefk=551) EOSINOPHILS ABSOLUTE COUNT (BEAKER) (test 0.12 K/ L 0.04-0.36 kxgc=249) BASOPHILS ABSOLUTE COUNT (BEAKER) (test 0.03 K/ L 0.01-0.08 tilb=245) IMMATURE GRANULOCYTES-RELATIVE PERCENT (BEAKER) 1 % 0-1 (test aqrj=9025) TISSUE [id number] 14:20:00Surgical Pathology Report Case: [id number] Authorizing Provider: Carlos Seo MD Collected: 10/21/2017 0837 Ordering Location: [facility] Received: 10/21/2017 0931 PERIOPERATIVE SERVICES Pathologist: Gilbert Anderson MD Specimen: Carotid, Right, RIGHT CAROTID PLAQUE ARTERY, RIGHT CAROTID, ENDARTERECTOMY:CALCIFIC ATHEROSCLEROTIC PLAQUE Signing Pathologist Direct Phone Line: [phone] signed by Gilbert Anderson MD on 2017 at 2:20 [id number]; [id number] stenosisRight carotid plaqueIn saline labeled "carotid, right", description "right carotid plaque" is a 3.5 cm in length x 0.9 cm in diameter michel-white to yellow-ang cylindrical previously incised portion of fibrous tissue. Sectioning reveals focal calcification. Counselor/Art Therapist sections are submitted in cassette A1 for decalcification. DB/ [id number] 05:30:00 Test Item Value Reference Range Comments MAGNESIUM (BEAKER) (test dehq=623) 1.7 mg/dL 1.6-2.6 [facility] resultsBASIC METABOLIC [id number] 05:30: 00 Test Item Value Reference Range Comments SODIUM (BEAKER) (test 138 meq/L 136-145 vyzm=294) POTASSIUM (BEAKER) (test 3.7 meq/L 3.5-5.1 xzti=534) CHLORIDE (BEAKER) (test 103 meq/L 98-107 nfka=160) CO2 (BEAKER) (test 28 meq/L 22-29 qysg=886) BLOOD UREA NITROGEN 11 mg/dL 7-21 (BEAKER) (test rzsk=233) CREATININE (BEAKER) (test 0.95 mg/dL 0.57-1.25 nuen=333) GLUCOSE RANDOM (BEAKER) 89 mg/dL 70-105 (test xxxc=797) CALCIUM (BEAKER) (test 9.0 mg/dL 8.4-10.2 ydxe=573) EGFR (BEAKER) (test 58 mL/min/1.73 sq m ESTIMATED GFR IS NOT gyjj=8404) ACCURATE CREATININE CLEARANCE IN PREDICTING GLOMERULAR FILTRATION RATE. ESTIMATED GFR IS NOT APPLICABLE FOR DIALYSIS PATIENTS. [facility]Call [facility] with resultsCBC W/PLT COUNT & AUTO [id number] 04:49:00 Test Item Value Reference Range Comments WHITE BLOOD CELL COUNT (BEAKER) (test gpix=034) 5.6 K/ L 3.5-10.5 RED BLOOD CELL COUNT (BEAKER) (test mefl=823) 3.59 M/ L 3.93-5.22 HEMOGLOBIN (BEAKER) (test wpck=592) 10.1 GM/DL 11.2-15.7 HEMATOCRIT (BEAKER) (test arcc=423) 32.8 % 34.1-44.9 MEAN CORPUSCULAR VOLUME (BEAKER) (test reyl=572) 91.4 fL 79.4-94.8 MEAN CORPUSCULAR HEMOGLOBIN (BEAKER) (test 28.1 pg 25.6-32.2 wuyk=827) MEAN CORPUSCULAR HEMOGLOBIN CONC (BEAKER) (test 30.8 GM/DL 32.2-35.5 skua=164) RED CELL DISTRIBUTION WIDTH (BEAKER) (test 15.2 % 11.7-14.4 ifti=438) PLATELET COUNT (BEAKER) (test teus=836) 113 K/CU MM 150-450 MEAN PLATELET VOLUME (BEAKER) (test mvgj=719) 13.5 fL 9.4-12.3 NUCLEATED RED BLOOD CELLS (BEAKER) (test 0 /100 WBC 0-0 ljmo=308) NEUTROPHILS RELATIVE PERCENT (BEAKER) (test 63 % zozc=163) LYMPHOCYTES RELATIVE PERCENT (BEAKER) (test 23 % lqho=758) MONOCYTES RELATIVE PERCENT (BEAKER) (test 9 % ltss=057) EOSINOPHILS RELATIVE PERCENT (BEAKER) (test 4 % xkvs=215) BASOPHILS RELATIVE PERCENT (BEAKER) (test 1 % xdfq=256) NEUTROPHILS ABSOLUTE COUNT (BEAKER) (test 3.50 K/ L 1.56-6.13 bfrw=025) LYMPHOCYTES ABSOLUTE COUNT (BEAKER) (test 1.29 K/ L 1.18-3.74 gxoi=344) MONOCYTES ABSOLUTE COUNT (BEAKER) (test 0.52 K/ L 0.24-0.36 ggaz=738) EOSINOPHILS ABSOLUTE COUNT (BEAKER) (test 0.23 K/ L 0.04-0.36 hdpj=433) BASOPHILS ABSOLUTE COUNT (BEAKER) (test 0.03 K/ L 0.01-0.08 saey=492) IMMATURE GRANULOCYTES-RELATIVE PERCENT (BEAKER) 0 % 0-1 (test fjxv=2055) BASIC METABOLIC [id number] 05:38:00 Test Item Value Reference Range Comments SODIUM (BEAKER) (test 138 meq/L 136-145 cvqn=035) POTASSIUM (BEAKER) (test 3.7 meq/L 3.5-5.1 rarx=575) CHLORIDE (BEAKER) (test 107 meq/L 98-107 cukp=980) CO2 (BEAKER) (test 25 meq/L 22-29 ipju=416) BLOOD UREA NITROGEN 14 mg/dL 7-21 (BEAKER) (test jckg=553) CREATININE (BEAKER) (test 0.76 mg/dL 0.57-1.25 gnbg=138) GLUCOSE RANDOM (BEAKER) 88 mg/dL 70-105 (test yqwa=317) CALCIUM (BEAKER) (test 8.5 mg/dL 8.4-10.2 ufmh=517) EGFR (BEAKER) (test 75 mL/min/1.73 sq m ESTIMATED GFR IS NOT wrsf=3634) ACCURATE CREATININE CLEARANCE IN PREDICTING GLOMERULAR FILTRATION RATE. ESTIMATED GFR IS NOT APPLICABLE FOR DIALYSIS PATIENTS. CBC W/PLT COUNT & AUTO [id number] 05:13:00 Test Item Value Reference Range Comments WHITE BLOOD CELL COUNT (BEAKER) (test kiya=468) 3.8 K/ L 3.5-10.5 RED BLOOD CELL COUNT (BEAKER) (test jyvn=885) 3.40 M/ L 3.93-5.22 HEMOGLOBIN (BEAKER) (test oqye=426) 9.6 GM/DL 11.2-15.7 HEMATOCRIT (BEAKER) (test psal=371) 31.3 % 34.1-44.9 MEAN CORPUSCULAR VOLUME (BEAKER) (test dwmk=759) 92.1 fL 79.4-94.8 MEAN CORPUSCULAR HEMOGLOBIN (BEAKER) (test 28.2 pg 25.6-32.2 jlhw=054) MEAN CORPUSCULAR HEMOGLOBIN CONC (BEAKER) (test 30.7 GM/DL 32.2-35.5 xryj=661) RED CELL DISTRIBUTION WIDTH (BEAKER) (test 15.4 % 11.7-14.4 qobp=417) PLATELET COUNT (BEAKER) (test cqpv=961) 91 K/CU MM 150-450 MEAN PLATELET VOLUME (BEAKER) (test foxg=623) 13.6 fL 9.4-12.3 NUCLEATED RED BLOOD CELLS (BEAKER) (test 0 /100 WBC 0-0 ynvt=393) NEUTROPHILS RELATIVE PERCENT (BEAKER) (test 64 % tyus=364) LYMPHOCYTES RELATIVE PERCENT (BEAKER) (test 23 % bufl=404) MONOCYTES RELATIVE PERCENT (BEAKER) (test 8 % balg=949) EOSINOPHILS RELATIVE PERCENT (BEAKER) (test 4 % kxob=683) BASOPHILS RELATIVE PERCENT (BEAKER) (test 0 % nzcp=697) NEUTROPHILS ABSOLUTE COUNT (BEAKER) (test 2.45 K/ L 1.56-6.13 krai=507) LYMPHOCYTES ABSOLUTE COUNT (BEAKER) (test 0.89 K/ L 1.18-3.74 kofx=749) MONOCYTES ABSOLUTE COUNT (BEAKER) (test xqqs=235) 0.30 K/ L 0.24-0.36 EOSINOPHILS ABSOLUTE COUNT (BEAKER) (test 0.14 K/ L 0.04-0.36 mhdy=362) BASOPHILS ABSOLUTE COUNT (BEAKER) (test tdgw=418) 0.01 K/ L 0.01-0.08 IMMATURE GRANULOCYTES-RELATIVE PERCENT (BEAKER) 1 % 0-1 (test wuwq=8048) GLUCOSE-STAT [id number] 09:53:00 Test Item Value Reference Range Comments GLUCOSE RANDOM (BEAKER) (test jeqa=236) 105 mg/dL 70-110 HGB/HCT (H&H) - STAT [id number] 09:53:00 Test Item Value Reference Range Comments HEMOGLOBIN (BEAKER) (test gonw=989) 11.2 g/dL 12.0-15.0 HEMATOCRIT (BEAKER) (test jama=049) 33.0 % 36.0-45.0 BASIC METABOLIC [id number] 07:45:00 Test Item Value Reference Range Comments SODIUM (BEAKER) (test 136 meq/L 136-145 kkcr=142) POTASSIUM (BEAKER) (test 3.5 meq/L 3.5-5.1 zxbu=103) CHLORIDE (BEAKER) (test 107 meq/L 98-107 lyqz=444) CO2 (BEAKER) (test 21 meq/L 22-29 zwwh=812) BLOOD UREA NITROGEN 17 mg/dL 7-21 (BEAKER) (test otfi=780) CREATININE (BEAKER) (test 0.78 mg/dL 0.57-1.25 jpnl=864) GLUCOSE RANDOM (BEAKER) 93 mg/dL 70-105 (test cfeg=184) CALCIUM (BEAKER) (test 9.6 mg/dL 8.4-10.2 hvbt=657) EGFR (BEAKER) (test 73 mL/min/1.73 sq m ESTIMATED GFR IS NOT dfxs=2312) ACCURATE CREATININE CLEARANCE IN PREDICTING GLOMERULAR FILTRATION RATE. ESTIMATED GFR IS NOT APPLICABLE FOR DIALYSIS PATIENTS. RAD, CHEST, 1 VIEW, NON [id number] 07:29:00Reason for exam:-> baselineReason for exam:->pre opShould [...] MDReport Verified Date/Time: 10/21/2017 07:29:40 Reading Location: [facility] Radiology Reading Room PROTHROMBIN TIME/[id number] 07:23:00 Test Item Value Reference Range Comments PROTIME (BEAKER) (test cxwk=200) 13.5 seconds 11.7-14.7 INR (BEAKER) (test szzt=067) 1.0 <=5.9 RECOMMENDED COUMADIN/WARFARIN INR THERAPY RANGESSTANDARD DOSE: 2.0 - 3.0 Includes: PROPHYLAXIS forvenous thrombosis, systemic embolization; TREATMENT for venous thrombosis and/or pulmonary embolus.HIGH RISK: Target INR is 2.5-3.5 for patients with mechanical heart valves.CBC W/PLT COUNT & AUTO [id number] 10:12:00 Test Item Value Reference Range Comments WHITE BLOOD CELL COUNT (BEAKER) (test nuil=784) 5.4 K/ L 3.5-10.5 RED BLOOD CELL COUNT (BEAKER) (test agsw=779) 4.39 M/ L 3.93-5.22 HEMOGLOBIN (BEAKER) (test oazf=478) 12.2 GM/DL 11.2-15.7 HEMATOCRIT (BEAKER) (test cqrf=496) 39.1 % 34.1-44.9 MEAN CORPUSCULAR VOLUME (BEAKER) (test wavr=971) 89.1 fL 79.4-94.8 MEAN CORPUSCULAR HEMOGLOBIN (BEAKER) (test 27.8 pg 25.6-32.2 zvcw=067) MEAN CORPUSCULAR HEMOGLOBIN CONC (BEAKER) (test 31.2 GM/DL 32.2-35.5 ydyg=353) RED CELL DISTRIBUTION WIDTH (BEAKER) (test 14.7 % 11.7-14.4 elhj=576) PLATELET COUNT (BEAKER) (test bcnv=281) 151 K/CU MM 150-450 MEAN PLATELET VOLUME (BEAKER) (test tfal=533) 13.0 fL 9.4-12.3 NUCLEATED RED BLOOD CELLS (BEAKER) (test 0 /100 WBC 0-0 iylg=397) NEUTROPHILS RELATIVE PERCENT (BEAKER) (test 72 % upfl=780) LYMPHOCYTES RELATIVE PERCENT (BEAKER) (test 18 % epxh=665) MONOCYTES RELATIVE PERCENT (BEAKER) (test 7 % fzgc=339) EOSINOPHILS RELATIVE PERCENT (BEAKER) (test 2 % lgqr=795) BASOPHILS RELATIVE PERCENT (BEAKER) (test 1 % glhg=122) NEUTROPHILS ABSOLUTE COUNT (BEAKER) (test 3.89 K/ L 1.56-6.13 jxux=179) LYMPHOCYTES ABSOLUTE COUNT (BEAKER) (test 0.99 K/ L 1.18-3.74 pvey=754) MONOCYTES ABSOLUTE COUNT (BEAKER) (test 0.37 K/ L 0.24-0.36 dwxq=701) EOSINOPHILS ABSOLUTE COUNT (BEAKER) (test 0.08 K/ L 0.04-0.36 jvvx=605) BASOPHILS ABSOLUTE COUNT (BEAKER) (test 0.03 K/ L 0.01-0.08 oifc=451) IMMATURE GRANULOCYTES-RELATIVE PERCENT (BEAKER) 1 % 0-1 (test bjbs=8854)
--- OUTSIDE RECORDS SUMMARY | 2019-02-08 18:01 | XMS REPORT ---
[...] Status Dosage System Date Date Folic Acid [facility] [address]-37 Active not defined Amiodarone ND 0 Active not defined Plavix [facility] 75268484536 75 MG Orally Active 1 tablet Once a day Nitroglycerin [facility] 20396285886 0.4 MG Active not Sublingual defined Apixaban [facility] [address]-38 Active not defined Lasix [facility] 27357855677 40 MG Orally Active 1 tablet Once a day Tramadol HCl [facility] 94378792476 50 MG Orally Active 1 tablet every 6 hrs as needed Lipitor [facility] 27798877426 40 MG Orally Active 1 tablet Once a day Results No Known Results Immunizations Vaccine Administration Date FluAD Jun 22, 2018 Summary Purpose eClinicalWorks Submission
--- OUTSIDE RECORDS SUMMARY | 2019-02-08 18:01 | XMS REPORT ---
[...] Status Dosage System Date Date Tramadol HCl [facility] 99031174190 50 MG Orally Active 1 tablet every 6 hrs as needed Eliquis [facility] [address]-53 Active not defined Folic Acid [facility] [address]-74 Active not defined Lipitor ND 76766548950 40 MG Orally Active 1 tablet Once a day Nitroglycerin [facility] 49388561271 0.4 MG Active not Sublingual defined Atorvastatin [facility] [address]-22 Active not Calcium defined Lasix [facility] 01371609056 40 MG Orally Active 1 tablet Once a day Results No Known Results Summary Purpose eClinicalWorks Submission
[2019-02-08] MEDS ORDERED: NA CHLORIDE 0.9% 1,000 ML ONE (18:12)
[2019-02-08 18:25] LABS: RBC Red Blood Cell Count 3.35 M/uL (3.86-4.86)
[2019-02-08 18:26] LABS: Absolute Lymphocytes (CBC) 1.6 K/uL (0.7-4.9); Basophils % 0.7 % (0-1.3); Eosinophils % 2.1 % (0-4.4); Hematocrit 24.2 % (36.0-45.0); Lymphocytes % 27.2 % (15.3-44.8); MPV 10.9 fL (7.6-11.3)
[2019-02-08 18:39] LABS: Protime INR 1.41
[2019-02-08] MEDS ORDERED: DIPHENHYDRAMINE 50 MG/ML VIAL ONE (18:42)
[2019-02-08] MEDS ORDERED: NA CHLORIDE 0.9% 100 ML IV ONE (18:42)
[2019-02-08] MEDS ORDERED: METOCLOPRAMIDE 10 MG/2mL INJ ONE (18:42)
[2019-02-08 18:43] LABS: ALT/SGPT 16 U/L (12-78); AST/SGOT 13 U/L (15-37); Alkaline Phosphatase 90 U/L (45-117); BUN Blood Urea Nitrogen 22 mg/dL (7-18); Bicarbonate 26 mmol/L (21-32); Bilirubin Direct < 0.1 mg/dL (0-0.2); Bilirubin Total 0.3 mg/dL (0.2-1.0); Glucose Level 114 mg/dL (74-106); Magnesium 2.1 mg/dL (1.8-2.4); NT PRO-BNP 715 pg/mL (<125); Potassium 3.6 mmol/L (3.5-5.1); Protein, Total 6.7 g/dL (6.4-8.2); Sodium Level 140 mmol/L (136-145); Troponin (Emerg Dept Use Only) 0.02 ng/mL (0.0-0.045)
[2019-02-08] MEDS ORDERED: SOTALOL HCL 80 MG TAB ONE (18:49)
--- NOTE | 2019-02-08 19:01 | ER ---
Nurse's Notes [facility] Name: Jenniffer Harden Age: 73 yrs Sex: Female : 1945 Arrival Date: 02/08/2019 Time: 17:51 Bed 3 Private MD: Diagnosis: Atrial fibrillation and flutter-With RVR;Hypotension;Gastrointestinal hemorrhage, unspecified;Anemia Presentation: 02/08 17:52 Presenting complaint: Patient states: from EMS, pt complaints of chest pain 45 mins hj ago, on EKG, pt is on Afib with RVR; HR- 180; Cardizem 10 mg IV given at 20 g R AC; NS 500 ml started; Aspirin 325 mg given;. Transition of care: patient was not received from another setting of care. Onset of symptoms was February 08, 2019. Risk Assessment: Do you want to hurt yourself or someone else? Patient reports no desire to harm self or others. Initial Sepsis Screen: Does the patient meet any 2 criteria? No. Patient's initial sepsis screen is negative. Does the patient have a suspected source of infection? No. Patient's initial sepsis screen is negative. Care prior to arrival: None. 17:52 Method Of Arrival: EMS: [facility] 17:52 Acuity: RUTHIE 2 hj Triage Assessment: 17:55 General: Appears in no apparent distress. uncomfortable, Behavior is cooperative, hj appropriate for age, anxious. Pain: Complains of pain in chest. Historical: - Allergies: 17:58 Morphine; hj 17:58 PENICILLINS; hj 17:58 Phenergan; hj 17:58 Ibuprofen; hj - Home Meds: 17:58 aspirin 81 mg Oral TbEC 1 tab once daily [Active]; atorvastatin 40 mg Oral tab 1 tab hj once daily [Active]; Avapro Oral [Active]; clopidogrel 75 mg Oral tab 1 tab once daily [Active]; Eliquis Oral [Active]; enalapril maleate 5 mg Oral tab 1 tab once daily [Active]; furosemide 40 mg Oral tab 1 tab once daily [Active]; Lasix Oral [Active]; Lipitor Oral [Active]; metoprolol tartrate 25 mg Oral tab 1 tab once daily [Active]; - PMHx: 17:58 Arthritis; Atrial Fib; mitral valve prolapse; Hypertension; Myocardial infarction; hj Osteoporosis; - PSHx: 17:58 hip surgery; Carotid surgery; hand surgery; hj - Immunization history:: Adult Immunizations up to date. - Social history:: Smoking status: Patient/guardian denies using tobacco, Patient/guardian denies using alcohol. - Ebola Screening: : Patient negative for fever greater than or equal to 101.5 degrees Fahrenheit, and additional compatible Ebola Virus Disease symptoms Patient denies exposure to infectious person Patient denies travel to an Ebola-affected area in the 21 days before illness onset. Screenin:55 Abuse screen: Denies threats or abuse. Denies injuries from another. Nutritional hj screening: No deficits noted. Tuberculosis screening: No symptoms or risk factors identified. Fall Risk None identified. Assessment: 18:06 General: Appears in no apparent distress. comfortable, Behavior is calm, cooperative. rv Pain: Complains of pain in HEAD. Neuro: Level of Consciousness is awake, alert, obeys commands, Oriented to person, place, time, situation. Cardiovascular: Patient's skin is warm and dry. Rhythm is atrial fibrillation with rapid ventricular response. Respiratory: Airway is patent. GI: No signs and/or symptoms were reported involving the gastrointestinal system. GI: No signs and/or symptoms were reported involving the gastrointestinal system. : No signs and/or symptoms were reported regarding the genitourinary system. EENT: No signs and/or symptoms were reported regarding the EENT system. Derm: Skin is intact, Reports. Musculoskeletal: No signs and/or symptoms reported regarding the musculoskeletal system. 18:16 Reassessment: No changes from previously documented assessment. Patient and/or family hj updated on plan of care and expected duration. Pain level reassessed. Patient is alert, oriented x 3, equal unlabored respirations, skin warm/dry/pink. 19:23 Reassessment: called lab to draw T\T\S. tl2 19:39 General: Appears in no apparent distress. comfortable, Behavior is calm, cooperative, tl2 appropriate for age. Pain: Complains of pain in headache. Neuro: Level of Consciousness is awake, alert, obeys commands, Oriented to person, place, time, situation. Cardiovascular: Reports shortness of breath, Patient's skin is warm and dry. Rhythm is atrial fibrillation with rapid ventricular response. Respiratory: Airway is patent Respiratory effort is even, unlabored, Respiratory pattern is regular, symmetrical. GI: No signs and/or symptoms were reported involving the gastrointestinal system. : No signs and/or symptoms were reported regarding the genitourinary system. Derm: Skin is pale. Musculoskeletal: No signs and/or symptoms reported regarding the musculoskeletal system. Vital Signs: 17:54 BP 95 / 63; Pulse 131; Resp 20; Temp 98.1; Pulse Ox 100% on R/A; Weight 77.11 kg; hj Height 5 ft. 2 in. (157.48 cm); Pain 8/10; 18:01 BP 110 / 76; Pulse 127; Resp 18; Pulse Ox 98% on 2 lpm NC; hj 18:14 BP 110 / 58; Pulse 126; Resp 18; Pulse Ox 98% 2 lpm ; rv 18:45 BP 123 / 72; Pulse 151; Resp 20; Pulse Ox 100% on 2 lpm NC; hj 18:50 BP 105 / 87; Pulse 135; Resp 20; Pulse Ox 98% on 2 lpm NC; hj 19:00 BP 118 / 92; Pulse 145; Resp 18; Pulse Ox 100% on 2 lpm NC; hj 19:22 BP 86 / 70; Pulse 130; Resp 19; Pulse Ox 100% on 2 lpm NC; tl2 19:39 BP 117 / 89; Pulse 131; Resp 19; Pulse Ox 100% on 2 lpm NC; tl2 20:06 BP 108 / 52; Pulse 118; Resp 24; Pulse Ox 100% on 2 lpm NC; tl2 20:36 BP 105 / 86; Pulse 126; Resp 20; Pulse Ox 100% on 2 lpm NC; tl2 17:54 Body Mass Index 31.09 (77.11 kg, 157.48 cm) hj Vitals: 19:39 Cardiac Rhythm Assessment Atrial fibrillation W/rapid ventricular response. tl2 20:36 Cardiac Rhythm Assessment Atrial fibrillation W/rapid ventricular response. tl2 ED Course: 17:51 Patient arrived in ED. hj 17:54 Triage completed. hj 17:56 Arm band placed on right wrist. hj 17:58 Garcia Garcia, INOCENCIO is Primary Nurse. rv 17:59 Harjinder Nicolas PA is PHCP. jr8 17:59 Francisco Gonzalez MD is Attending Physician. jr8 17:59 Patient has correct armband on for positive identification. Placed in gown. Bed in low hj position. Call light in reach. Side rails up X2. 18:14 Maintain EMS IV. Dressing intact. Good blood return noted. Site clean \T\ dry. Gauge \T\ hj site: 20g R FA. 18:16 XRAY Chest (1 view) In Process Unspecified. EDMS 18:59 Emma Parekh MD is Hospitalizing Provider. jr8 Administered Medications: 18:31 Drug: Benadryl 25 mg Route: IVP; Site: right forearm; rv 18:32 Drug: Reglan 10 mg Route: IVP; Site: right forearm; rv 18:41 Drug: Betapace 40 mg Route: PO; rv Outcome: 19:00 Decision to Hospitalize by Provider. jr8 21:02 Patient left the ED. bb Signatures: Dispatcher [employer] EDMS Jennifer Walter, RN RN bb Harjinder Nicolas PA PA jr8 Andrey Damian RN RN Susy Kang RN RN tl2 Garcia Garcia RN RN rv Corrections: (The following items were deleted from the chart) 18:00 17:54 Resp 20bpm; Pulse Ox 100% RA; Temp 98.1F; 77.11 kg; Height 5 ft. 2 in.; BMI: hj 31.0; Pain 8/10; hj 18:02 18:01 BP 110 / 76; Pulse 70bpm; Resp 18bpm; Pulse Ox 98% RA; hj hj 18:46 18:01 BP 110 / 76; Pulse 127bpm; Resp 18bpm; Pulse Ox 98% RA; hj hj 18:46 18:45 BP 123 / 72; Pulse 151bpm; Resp 20bpm; Pulse Ox 100% RA; hj hj
--- NOTE | 2019-02-08 19:02 | EDPHYS ---
Physician Documentation [facility] Name: Jenniffer Harden Age: 73 yrs Sex: Female : 1945 Arrival Date: 02/08/2019 Time: 17:51 Bed 3 Private MD: ED Physician Francisco Gonzalez HPI: 02/08 18:48 This 73 yrs old Female presents to ER via EMS with complaints of Irregular jr8 Pulse. 18:48 The patient presents with a history of irregular heart beat, heart racing. Context: The jr8 symptoms occur at rest. Onset: The symptoms/episode began/occurred acutely, today. Duration: The patient or guardian reports a single episode, that is still ongoing. Modifying factors: The symptoms are aggravated by nothing. The symptoms are alleviated by nothing. Associated signs and symptoms: Pertinent positives: SOB, near-syncope. Severity of symptoms: At their worst the symptoms were moderate in the emergency department the symptoms have improved mildly. The patient has experienced a previous episode. The patient has been recently seen by a physician:. Patient with history of Atrial fib. Had to be electrically cardioverted 2 weeks ago and admitted for hypotension. Stated that she is in need for ablation surgery. Had stopped her Betapace this past Thursday because HR was too low. Since then has had steady increase in HR. Today spiked up to the 160s +. Because short of breath and dizzy. EMS on scene gave 10 mg of cardizem. BP dropped at that time but did lower HR . Historical: - Allergies: 17:58 Morphine; hj 17:58 PENICILLINS; hj 17:58 Phenergan; hj 17:58 Ibuprofen; hj - Home Meds: 17:58 aspirin 81 mg Oral TbEC 1 tab once daily [Active]; atorvastatin 40 mg Oral tab 1 tab hj once daily [Active]; Avapro Oral [Active]; clopidogrel 75 mg Oral tab 1 tab once daily [Active]; Eliquis Oral [Active]; enalapril maleate 5 mg Oral tab 1 tab once daily [Active]; furosemide 40 mg Oral tab 1 tab once daily [Active]; Lasix Oral [Active]; Lipitor Oral [Active]; metoprolol tartrate 25 mg Oral tab 1 tab once daily [Active]; - PMHx: 17:58 Arthritis; Atrial Fib; mitral valve prolapse; Hypertension; Myocardial infarction; hj Osteoporosis; - PSHx: 17:58 hip surgery; Carotid surgery; hand surgery; hj - Immunization history:: Adult Immunizations up to date. - Social history:: Smoking status: Patient/guardian denies using tobacco, Patient/guardian denies using alcohol. - Ebola Screening: : Patient negative for fever greater than or equal to 101.5 degrees Fahrenheit, and additional compatible Ebola Virus Disease symptoms Patient denies exposure to infectious person Patient denies travel to an Ebola-affected area in the 21 days before illness onset. ROS: 18:53 Eyes: Negative for injury, pain, redness, and discharge, ENT: Negative for injury, jr8 pain, and discharge, Neck: Negative for injury, pain, and swelling, Abdomen/GI: Negative for abdominal pain, nausea, vomiting, diarrhea, and constipation, Back: Negative for injury and pain, MS/Extremity: Negative for injury and deformity, Skin: Negative for injury, rash, and discoloration, Neuro: Negative for headache, weakness, numbness, tingling, and seizure. 18:53 Cardiovascular: Positive for palpitations, Negative for chest pain, edema, orthopnea, paroxysmal nocturnal dyspnea. 18:53 Respiratory: Positive for dyspnea on exertion, shortness of breath. Exam: 18:53 Eyes: Pupils equal round and reactive to light, extra-ocular motions intact. Lids and jr8 lashes normal. Conjunctiva and sclera are non-icteric and not injected. Cornea within normal limits. Periorbital areas with no swelling, redness, or edema. ENT: Nares patent. No nasal discharge, no septal abnormalities noted. Tympanic membranes are normal and external auditory canals are clear. Oropharynx with no redness, swelling, or masses, exudates, or evidence of obstruction, uvula midline. Mucous membranes moist. Neck: Trachea midline, no thyromegaly or masses palpated, and no cervical lymphadenopathy. Supple, full range of motion without nuchal rigidity, or vertebral point tenderness. No Meningismus. Respiratory: Lungs have equal breath sounds bilaterally, clear to auscultation and percussion. No rales, rhonchi or wheezes noted. No increased work of breathing, no retractions or nasal flaring. Abdomen/GI: Soft, non-tender, with normal bowel sounds. No distension or tympany. No guarding or rebound. No evidence of tenderness throughout. Back: No spinal tenderness. No costovertebral tenderness. Full range of motion. Skin: Warm, dry with normal turgor. Normal color with no rashes, no lesions, and no evidence of cellulitis. MS/ Extremity: Pulses equal, no cyanosis. Neurovascular intact. Full, normal range of motion. Neuro: Awake and alert, GCS 15, oriented to person, place, time, and situation. Cranial nerves II-XII grossly intact. Motor strength 5/5 in all extremities. Sensory grossly intact. Cerebellar exam normal. Normal gait. 18:53 Cardiovascular: Rate: tachycardic, actual rate is 146 bpm, Rhythm: irregularly irregular, Pulses: Pulses are 1+ in right radial artery and left radial artery. Heart sounds: normal, Edema: is not appreciated, JVD: is not appreciated. Vital Signs: 17:54 BP 95 / 63; Pulse 131; Resp 20; Temp 98.1; Pulse Ox 100% on R/A; Weight 77.11 kg; hj Height 5 ft. 2 in. (157.48 cm); Pain 8/10; 18:01 BP 110 / 76; Pulse 127; Resp 18; Pulse Ox 98% on 2 lpm NC; hj 18:14 BP 110 / 58; Pulse 126; Resp 18; Pulse Ox 98% 2 lpm ; rv 18:45 BP 123 / 72; Pulse 151; Resp 20; Pulse Ox 100% on 2 lpm NC; hj 18:50 BP 105 / 87; Pulse 135; Resp 20; Pulse Ox 98% on 2 lpm NC; hj 19:00 BP 118 / 92; Pulse 145; Resp 18; Pulse Ox 100% on 2 lpm NC; hj 19:22 BP 86 / 70; Pulse 130; Resp 19; Pulse Ox 100% on 2 lpm NC; tl2 19:39 BP 117 / 89; Pulse 131; Resp 19; Pulse Ox 100% on 2 lpm NC; tl2 20:06 BP 108 / 52; Pulse 118; Resp 24; Pulse Ox 100% on 2 lpm NC; tl2 20:36 BP 105 / 86; Pulse 126; Resp 20; Pulse Ox 100% on 2 lpm NC; tl2 17:54 Body Mass Index 31.09 (77.11 kg, 157.48 cm) MDM: 17:59 Patient medically screened. [facility] 18:53 Data reviewed: vital signs, nurses notes, lab test result(s), EKG, radiologic studies, jr8 plain films. Data interpreted: Pulse oximetry: on 2L(s) per nasal canula, is 98 %. Interpretation: normal. Counseling: I had a detailed discussion with the patient and/or guardian regarding: the historical points, exam findings, and any diagnostic results supporting the discharge/admit diagnosis, lab results, radiology results, the need for further work-up and treatment in the hospital. ED course: Dr. Munroe consulted and advised to start patient on low dose Betapace. Will see her in hospital . 02/08 17:58 Order name: Basic Metabolic Panel; Complete Time: 18:46 02/08 17:58 Order name: CBC with Diff; Complete Time: 18:46 02/08 17:58 Order name: LFT's; Complete Time: 18:46 02/08 17:58 Order name: Magnesium; Complete Time: 18:46 02/08 17:58 Order name: NT PRO-BNP; Complete Time: 18:46 02/08 17:58 Order name: PT-INR; Complete Time: 18:46 02/08 17:58 Order name: Troponin (emerg Dept Use Only); Complete Time: 18:46 02/08 17:58 Order name: XRAY Chest (1 view); Complete Time: 19:17 02/08 17:58 Order name: EKG; Complete Time: 18:00 02/08 19:11 Order name: Type And Screen tl2 02/08 20:26 Order name: Packed RBC Leukored EDMS 02/08 17:58 Order name: Cardiac monitoring; Complete Time: 17:59 02/08 17:58 Order name: EKG - Nurse/Tech; Complete Time: 18:13 02/08 17:58 Order name: IV Saline Lock; Complete Time: 18:13 02/08 17:58 Order name: Labs collected and sent; Complete Time: 18:13 02/08 17:58 Order name: O2 Per Protocol; Complete Time: 18:14 02/08 17:58 Order name: O2 Sat Monitoring; Complete Time: 18:14 rv Administered Medications: 18:31 Drug: Benadryl 25 mg Route: IVP; Site: right forearm; rv 18:32 Drug: Reglan 10 mg Route: IVP; Site: right forearm; rv 18:41 Drug: Betapace 40 mg Route: PO; rv Disposition: 02/09 16:32 Co-signature as Attending Physician, Francisco Gonzalez MD I agree with the assessment and kaveh plan of care. Disposition: 02/08/19 19:00 Hospitalization ordered by Emma Parekh for Inpatient Admission. Preliminary diagnosis are Atrial fibrillation and flutter - With RVR, Hypotension, Gastrointestinal hemorrhage, unspecified, Anemia . - Bed requested for Intensive Care Unit. - Status is Inpatient Admission. bb - Condition is Fair. - Problem is an acute exacerbation. - Symptoms have improved. UTI on Admission? No Signatures: Dispatcher [employer] EDMS Francisco Gonzalez MD MD cha Chretien, Felicia, RN RN fc Jennifer Walter RN RN bb Harjinder Nicolas PA PA jr8 Andrey Damian RN RN Garcia Garcia RN RN rv Corrections: (The following items were deleted from the chart) 02/08 18:57 18:48 Patient with history of Atrial fib. jr8 jr8 20:32 19:00 Hospitalization Ordered by Emma Parekh MD for Inpatient Admission. Preliminary fc diagnosis is Atrial fibrillation and flutter - With RVR; Hypotension; Gastrointestinal hemorrhage, unspecified; Anemia . Bed requested for Intensive Care Unit. Status is Inpatient Admission. Condition is Fair. Problem is an acute exacerbation. Symptoms have improved. UTI on Admission? No. jr8 21:02 20:32 02/08/2019 19:00 Hospitalization Ordered by Emma Parekh MD for Inpatient bb Admission. Preliminary diagnosis is Atrial fibrillation and flutter - With RVR; Hypotension; Gastrointestinal hemorrhage, unspecified; Anemia . Bed requested for Intensive Care Unit. Status is Inpatient Admission. Condition is Fair. Problem is an acute exacerbation. Symptoms have improved. UTI on Admission? No. fc
--- NOTE | 2019-02-08 19:13 | RAD REPORT ---
EXAM DESCRIPTION: RAD - Chest Single View - 02/08/2019 6:15 pm CLINICAL HISTORY: Chest pain COMPARISON: January 26 TECHNIQUE: AP portable chest image was obtained 1808 hour . FINDINGS: Is no peripheral mass or consolidation. Baseline interstitial pattern is accentuated by sh allow inspiration. Resuscitation paddles overlie the upper right chest and lateral left upper quadran t. Left shoulder prosthesis in place. Heart size is prominent but stable. Vasculature within normal l imits. No measurable pleural effusion and no pneumothorax. No acute bony abnormality seen. No acute a ortic findings suspected. IMPRESSION: No acute cardiopulmonary process. Chronic interstitial lung disease is present similar to comparison.
--- NOTE | 2019-02-08 20:37 | P.HP ---
Certification for Inpatient Patient admitted to: Inpatient With expected LOS: >2 Midnights Practitioner: I am a practitioner with admitting privileges, knowledge of patient current condition, hospital course, and medical plan of care. Services: Services provided to patient in accordance with Admission requirements found in Title 42 Section 412.3 of the Code of Federal Regulations Patient History Date of Service: 02/08/19 Reason for admission: Afib with RVR History of Present Illness: Ms Harden is a 73 years old woman with history of CAD, chronic anemia, she recurrently bleed from internal hemorrhoids, HTN, chronic A.Fib anticoagulated with Eliquis, last time admited on 01/19 due to A.Fib, requiring electric CV, she was then discharged with betapace 40 mg bid, however, the patient was misunderstood, and she was taking 80 mg BID. Last week, her BP was low 80's/60' s and bradycardic (30 bpm). Then she stop taking betapace about 3 days ago. Today, the patient start feeling chest pain, and then palpitations. At arrival, EKG shows A.Fib with RVR at 146 bpm, BP 95/63. Lab work remarkable for Hgb 7.2 mg/dl, Trop I normal. At my encounter, patient was chest pain free in non- distress. Allergies morphine Allergy (Verified 10/06/17 14:02) UNK Penicillins Allergy (Verified 10/06/17 14:02) UNK promethazine HCl [From Phenergan] Adverse Reaction (Intermediate, Verified 10/06 14:02) unk Home Medications: Atorvastatin Calcium [Lipitor] 80 mg PO BID 04/10/15 Furosemide [Lasix] 20 mg PO BID 6AM 6PM 10/08/16 Apixaban [Eliquis] 5 mg PO BID 01/26/19 Irbesartan [Avapro*] 300 mg PO DAILY 01/26/19 Potassium Chloride 20 meq PO DAILY 01/26/19 traMADol HCL [Ultram*] 50 mg PO Q8H PRN 01/26/19 Sotalol HCl [Betapace*] 40 mg PO BID 6AM 6PM #60 tab 01/28/19 - Past Medical/Surgical History Diabetic: No -: HTN -: Osteoporosis -: [place] -: Atrial fibrillation -: CAD -: Mitral Valve Prolapse -: Hyperlipidemia -: History of Tobacco use -: arthritis -: arthritis -: possible autoimmune disease -: cholecystectomy -: hysterectomy -: left hip surgery -: left arm surgery titanium -: cardiac catherization - stent placement X 1 -: back surgery -: broken sternum -: ovarian tumor removal Psychosocial/ Personal History: , 4-Children, Retired. - Family History Sister -: Heart disease, Hypertension Notes: a.fib Mother -: Cancer, Blood disorders Notes: ovarian Father -: Lung disease, Cancer - Social History Smoking Status: Former smoker Alcohol use: No CD- Drugs: No Caffeine use: Yes Place of Residence: Home Review of Systems 10-point ROS is otherwise unremarkable Physical Examination - Physical Exam General: Alert, In no apparent distress HEENT: Atraumatic, PERRLA, Mucous membr. moist/pink, EOMI, Sclerae nonicteric Neck: Supple, 2+ carotid pulse no bruit, No LAD, Without JVD or thyroid abnormality Respiratory: Clear to auscultation bilaterally, Normal air movement Cardiovascular: Regular rate/rhythm, Normal S1 S2 Gastrointestinal: Normal bowel sounds, No tenderness Musculoskeletal: No tenderness Integumentary: No rashes Neurological: Normal speech, Normal strength at 5/5 x4 extr, Normal tone, Normal affect Lymphatics: No axilla or inguinal lymphadenopathy - Studies Laboratory Data (last 24 hrs) 02/08/19 18:00: PT 16.4 H, INR 1.41 02/08/19 18:00: WBC 6.0 D, Hgb 7.2 L*, Hct 24.2 L, Plt Count 178 02/08/19 18:00: Sodium 140, Potassium 3.6, BUN 22 H, Creatinine 1.09, Glucose 114 H, Magnesium 2.1, Total Bilirubin 0.3, AST 13 L, ALT 16, Alkaline Phosphatase 90 Assessment and Plan - Problems (Diagnosis) (1) Chronic anemia Current Visit: Yes Status: Acute (2) Atrial fibrillation with rapid ventricular response Onset Date: 02/01/18 Current Visit: No Status: Acute (3) CAD (coronary artery disease) Onset Date: 06/19/14 Current Visit: No Status: Acute Qualifiers: Coronary Disease-Associated Artery/Lesion type: mo[place]gan artery Elem vs. transplanted heart: mohegan heart Associated angina: with unspecified angina Qualified Code(s): I25.119 - Atherosclerotic heart disease of mo[place]gan coronary artery with unspecified angina pectoris (4) Chest pain Onset Date: 04/11/15 Current Visit: No Status: Acute Qualifiers: Chest pain type: unspecified Qualified Code(s): R07.9 - Chest pain, unspecified (5) CAD (coronary artery disease), mohegan coronary artery Current Visit: No Status: Chronic Qualifiers: Elem vs. transplanted heart: mohegan heart Associated angina: with unspecified angina Qualified Code(s): I25.119 - Atherosclerotic heart disease of mohegan coronary artery with unspecified angina pectoris - Plan The patient will be admitted to ICU for close monitoring, will repeat serial cardiac enzymes and EKG, Dr Munroe already consulted and he has recommended to continue Betapace 40 mg BID. Will transfuse at least 1 Unit of PRBC. - Advance Directives Does patient have a Living Will: Yes Does patient have a Durable POA for Healthcare: Yes - Code Status/Comfort Care Code Status Assessed: Yes Code Status: Full Code
[2019-02-08] MEDS ORDERED: ONDANSETRON 4 MG/2 ML VIAL IV PRN (20:49)
[2019-02-08] MEDS: APIXABAN 5 MG TABLET PO SCH (21:00)
[2019-02-08] MEDS ORDERED: ATORVASTATIN 40 MG TAB PO SCH (21:00)
[2019-02-08] MEDS ORDERED: NA CHLORIDE 0.9% 250 ML ONE (21:59)
[2019-02-08] MEDS: NA CHLORIDE 0.9% 1,000 ML IV SCH (23:45)
[2019-02-09] MEDS ORDERED: ACETAMINOPHEN 500 MG TAB PO ONE (04:06)
[2019-02-09 04:45] VITALS: BMI 31.2
[2019-02-09 05:00] LABS: Hematocrit 25.8 % (36.0-45.0)
[2019-02-09 05:10] LABS: Absolute Lymphocytes (CBC) 1.9 K/uL (0.7-4.9); Basophils % 0.4 % (0-1.3); Hematocrit 25.9 % (36.0-45.0); MPV 10.7 fL (7.6-11.3); Monocytes % 9.9 % (3.3-12.3); RBC Red Blood Cell Count 3.46 M/uL (3.86-4.86)
[2019-02-09 05:23] LABS: Potassium 4.3 mmol/L (3.5-5.1); Troponin I 0.08 ng/mL (0.0-0.045)
[2019-02-09 05:31] LABS: Anisocytosis 1+; Blood Morphology Comment NOTED (NOT SEEN); Platelet Estimate ADEQ; Urine White Blood Cell Casts OK
[2019-02-09 05:32] LABS: Ovalocytes SLIGHT; Poikilocytosis 1+; Teardrop Cell 1+
[2019-02-09] MEDS: SOTALOL HCL 80 MG TAB PO SCH ×2 (06:18→17:50)
[2019-02-09] MEDS: NA CHLORIDE 0.9% 1,000 ML IV SCH ×2 (07:00→13:00)
[2019-02-09] MEDS: APIXABAN 5 MG TABLET PO SCH ×2 (09:00→21:51)
[2019-02-09] MEDS ORDERED: NA CHLORIDE 0.9% 250 ML ONE (09:44)
--- NOTE | 2019-02-09 09:57 | EKG ---
Test Date: 2019-02-08 Test Time: 17:54:14 Pattern Layout Worker: BARRETT MEASUREMENT RESULTS: Intervals: Rate: 146 TX: QRSD: 76 QT: 282 QTc: 439 Savage: P: TX: QRS: -24 T: 122 INTERPRETIVE STATEMENTS: Atrial fibrillation with rapid ventricular response with premature ventricular or aberrantly conducted complexes Marked ST abnormality, possible lateral subendocardial injury Abnormal ECG Compared to ECG 01/26/2019 14:35:30 Ventricular premature complex(es) now present Sinus rhythm no longer present Atrial premature complex(es) no longer present ST (T wave) deviation still present Electronically Signed On 02-09-19 09:55:58 CDT by Umesh Ulloa
[2019-02-09] MEDS ORDERED: FUROSEMIDE 20 MG/ 2ML VIAL IV ONE (12:22)
--- NOTE | 2019-02-09 13:46 | P.PN ---
Subjective Date of Service: 02/09/19 Primary Care Provider: Dr. Pinto; Cardiology-Dr. Ulloa Chief Complaint: Afib with RVR Subjective: Doing well Physical Examination - Vital Signs Temperature: 97.9 F Blood Pressure: 111/71 Pulse: 116 Respirations: 21 Pulse Ox (%): 95 - Physical Exam General: Alert, In no apparent distress, Oriented x3, Cooperative HEENT: Atraumatic Neck: Supple Respiratory: Clear to auscultation bilaterally, Normal air movement Cardiovascular: Irregular heart rate/rhythm (Atrial fibrillation, rate around 110) Gastrointestinal: Normal bowel sounds, Soft and benign, Non-distended, No tenderness, No masses, No rebound, No guarding Musculoskeletal: No erythema, No tenderness, No warmth Integumentary: No erythema, No warmth, No cyanosis Neurological: Normal speech, Normal strength at 5/5 x4 extr, Normal tone, Normal affect - Studies Laboratory Data (last 24 hrs) 02/08/19 18:00: PT 16.4 H, INR 1.41 02/08/19 18:00: WBC 6.0 D, Hgb 7.2 L*, Hct 24.2 L, Plt Count 178 02/08/19 18:00: Sodium 140, Potassium 3.6, BUN 22 H, Creatinine 1.09, Glucose 114 H, Magnesium 2.1, Total Bilirubin 0.3, AST 13 L, ALT 16, Alkaline Phosphatase 90 Medications List Reviewed: Yes Assessment & Plan Discharge Plan: Home Plan to discharge in: 24 Hours Physician Review Additional Text: Impression: Atrial fibrillation with RVR on chronic anti coagulation therapy with multiple prior cardioversions Acute on chronic anemia with history of internal hemorrhoids on chronic anti coagulation therapy Hypertension CAD Hyperlipidemia Plan: Atrial fibrillation with RVR on chronic anti coagulation therapy with multiple prior cardioversions: Patient was placed back on Betapace at a lower rate. Cardiology also restarted her chronic anti coagulation therapy. Will discuss with cardiology to see if Eliquis can be reduced to 2.5 mg 1 pill twice daily. Patient had been off her of her Betapace and Eliquis recently. Apparently there was miscommunication with her home health agency concerning these meds. Will discuss plan of care with Cardiology. Acute on chronic anemia with history of internal hemorrhoids on chronic anti coagulation therapy: Patient has received 2 units of packed red blood cells. Will continue to monitor hemoglobin closely. Patient with history of internal hemorrhoids. Patient on chronic anti coalition therapy. Will discuss with cardiology to consider decreasing Eliquis if hemoglobin continues to drop. Patient recently seen by GI but procedures have been held due to her cardiac issues. Hypertension: Blood pressure stable this time. Will monitor and adjust appropriately. CAD: Continue as above. Hyperlipidemia: Continue with her medication. Time Spent Managing Pts Care (In Minutes): 55
--- NOTE | 2019-02-09 14:15 | CON ---
History Of Present Illness: Ms. Harden is a 73. She came to the hospital with her heart racing. S he had been on Betapace, but stopped that. She was taking incorrect dose at home, was bradycardic. Instead of just reducing the dose, it was stopped and she is back in atrial fibrillation. She was in atrial fibrillation about 2 weeks ago, was in the hospital, did well with Betapace, did not require cardioversion when we did, so I think if we reinitiate Betapace, we will probably get her back in nor mal rhythm. She has had a problem with a low blood count. She has internal hemorrhoids, otherwise n ormal colonoscopy recently, gets bright red blood per rectum only with bowel movements and has a hemo globin of 8, which seems to be fairly stable. She has a history of bilateral carotid endarterectomie s, history of intracoronary stents, had a recent cardiac cath demonstrated the stents were in good sh ape. She has normal BUN and creatinine. Troponins 0.05, 0.08. She is not having chest pain. Physical Examination: Vital Signs: 5 feet 2 inches, 171 pounds. General: Alert, oriented, pleasant, not in distress. Lungs: Clear. Heart: Irregularly irregular. No significant gallop. Extremities: Mild edema. Distal pulses within normal limits. The patient is a former cigarette smoker, remains abstinent. I think if we reinitiate Betapace at 40 b.i.d. If we are unable to control her atrial fibrillation and she is on that constantly without er rors being made, then we will refer her for an atrial fibrillation ablation. KENYA/MILY Voice ID: [id number] Report ID: [id number]
[2019-02-09 18:50] LABS: Hematocrit 30.6 % (36.0-45.0)
[2019-02-09] MEDS ORDERED: ATORVASTATIN 80 MG TAB PO SCH (21:00)
[2019-02-09] MEDS ORDERED: MELATONIN 3 MG TABLET PO ONE ×2 (21:46→22:24)
[2019-02-10] MEDS: SOTALOL HCL 80 MG TAB PO SCH (05:25)
[2019-02-10] MEDS ORDERED: MIDAZOLAM HCL 2 MG/2 ML INJ ONE (07:37)
[2019-02-10 07:59] VITALS: O2SAT 97
--- NOTE | 2019-02-10 08:40 | EKG ---
Test Date: 2019-02-10 Test Time: 08:29:04 Deputy Sheriff Chief: KRISTY MEASUREMENT RESULTS: Intervals: Rate: 53 VA: 166 QRSD: 72 QT: 492 QTc: 461 Noble: P: 47 VA: 166 QRS: -24 T: 17 INTERPRETIVE STATEMENTS: Sinus bradycardia Septal infarct, age undetermined Abnormal ECG Compared to ECG 02/08/2019 17:54:14 Myocardial infarct finding now present Atrial fibrillation no longer present Ventricular premature complex(es) no longer present ST (T wave) deviation no longer present Electronically Signed On 02-10-19 08:39:45 CDT by Ben Munroe
--- NOTE | 2019-02-10 08:59 | P.DS ---
Admission Date: 02/08/19 Discharge Date: 02/10/19 Primary Care Provider: Dr. Pinto; Cardiology-Dr. Ulloa Disposition: ROUTINE DISCHARGE Discharge Condition: GOOD Reason for Admission: Afib with RVR Consultations: Cardiology-Dr. Ulloa Procedures: Cardiology: Successful cardioversion. Now in normal sinus rhythm Medical Problem List: Atrial fibrillation with RVR on chronic anti coagulation therapy with multiple prior cardioversions, status post cardioversion-now normal sinus rhythm Acute on chronic anemia with history of internal hemorrhoids on chronic anti coagulation therapy with iron and B12 deficiency, status post 2 units of packed red blood cells transfused Hypertension CAD Chronic Diastolic CHF Hyperlipidemia Brief History of Present Illness: 73-year-old female presented to emergency room with atrial fibrillation with RVR. Patient with history of chronic atrial fibrillation on chronic anti coagulation therapy, hypertension, hyperlipidemia. Patient had stopped her medication-Sotalol recently due to low heart rate and blood pressure. Patient apparently had been taking double the amount of her sotalol during that time period. She also stopped her Eliquis due to rectal bleeding related to internal hemorrhoids. Patient was evaluated the emergency room. She was admitted for further evaluation. Patient was anemic with a hemoglobin of 7.2. Hospital Course: Patient presented with atrial fibrillation with RVR. Patient with history of chronic atrial fibrillation and chronic anti coagulation therapy with multiple prior cardioversions. Patient had been taking double the amount of her Betapace prior to admission. When her blood pressure and heart rate dropped she stopped the Betapace. She also stopped her Eliquis due to some rectal bleeding related to internal hemorrhoids. She presented with atrial fibrillation with RVR and anemia. Patient was admitted for further evaluation and treatment. Cardiology was consulted. Cardiology restarted her Betapace at the correct dose of 40 mg 1 pill twice daily. Anti coagulation therapy-Eliquis 5 mg 1 pill twice daily was also restarted. During the course of her stay patient required cardioversion. This was successful and heart rate now in normal sinus rhythm. At discharge she will continue with Betapace 40 mg 1 pill twice daily and Eliquis 5 mg 1 pill twice daily. Recommend follow up with cardiology in 1 week to follow up this hospitalization. Cardiology plans send the patient to electrophysiology for consideration of cardiac ablation. This will be arranged by the help of her pier master. Patient also presented with acute on chronic anemia. Patient with history of internal hemorrhoids on chronic anti coagulation therapy and iron/B12 deficiency. Hemoglobin was 7.2. During the course of her stay patient was given 2 units of packed red blood cells. Hemoglobin has remained stable. No further rectal bleeding identified. At discharge she will continue with iron 325 mg 1 pill twice daily and vitamin-B 12 1 pill daily. Recommend to recheck CBC in 2-4 weeks to monitor stability. Patient to monitor for rectal bleeding. Patient has seen GI as an outpatient. No GI intervention is recommended at this time due to her cardiac issues. Once cardiac issues are better controlled , then patient can be considered for GI intervention to address her internal hemorrhoids. Recommend follow up with GI as directed. Patient with history of hypertension. Blood pressures have remained low. Avapro has been discontinued. At discharge, Avapro will continue to be discontinued. Recommend to monitor blood pressures closely. Recommend maintain blood pressures less 140/80. Further adjustment can be done by her PCP or cardiology. Patient with CAD and CHF. Patient has been taking Lasix 20 mg 1 pill twice daily with potassium supplementation. Patient will continue with a 1500 cc per day fluid restriction. She is to monitor her weight daily. If her weight increases by more than 5 lb she is to contact her PCP for further recommendation. She is to hold Lasix 20 mg 1 pill twice daily and her potassium supplementation if with no significant edema to the lower extremities or shortness of breath. Patient with hyperlipidemia. At discharge she will continue with Lipitor 80 mg daily. Vital Signs/Physical Exam: Temp Pulse Resp BP Pulse Ox 97.1 F 55 21 H 97/45 L 96 02/10/19 04:00 02/10/19 08:00 02/10/19 08:00 02/10/19 08:00 02/10/19 08:00 General: Alert, In no apparent distress, Oriented x3, Cooperative HEENT: Atraumatic Neck: Supple Respiratory: Clear to auscultation bilaterally, Normal air movement Cardiovascular: Normal pulses, Regular rate/rhythm Gastrointestinal: Normal bowel sounds, Soft and benign, Non-distended, No tenderness, No masses, No rebound, No guarding Neurological: Normal speech, Normal strength at 5/5 x4 extr, Normal tone, Normal affect Laboratory Data at Discharge: WBC 6.4 K/uL (4.3-10.9) 02/09/19 04:32 Hgb 9.8 g/dL (12.0-15.0) L 02/09/19 18:36 Hct 30.6 % (36.0-45.0) L 02/09/19 18:36 Plt Count 155 K/uL (152-406) 02/09/19 04:32 PT 16.4 SECONDS (9.5-12.5) H 02/08/19 18:00 INR 1.41 02/08/19 18:00 Sodium 140 mmol/L (136-145) 02/09/19 04:32 Potassium 4.3 mmol/L (3.5-5.1) 02/09/19 04:32 BUN 20 mg/dL (7-18) H 02/09/19 04:32 Creatinine 0.99 mg/dL (0.55-1.3) 02/09/19 04:32 Glucose 88 mg/dL (74-106) 02/09/19 04:32 Magnesium 2.1 mg/dL (1.8-2.4) 02/08/19 18:00 Total Bilirubin 0.3 mg/dL (0.2-1.0) 02/08/19 18:00 AST 13 U/L (15-37) L 02/08/19 18:00 ALT 16 U/L (12-78) 02/08/19 18:00 Alkaline Phosphatase 90 U/L (45-117) 02/08/19 18:00 Troponin I 0.06 ng/mL (0.0-0.045) H 02/09/19 12:52 Home Medications: Atorvastatin Calcium [Lipitor] 80 mg PO DAILY 04/10/15 Furosemide [Lasix] 20 mg PO BID 6AM 6PM 10/08/16 Apixaban [Eliquis] 5 mg PO BID 01/26/19 Potassium Chloride 20 meq PO DAILY 01/26/19 traMADol HCL [Ultram*] 50 mg PO Q8H PRN 01/26/19 Sotalol HCl [Betapace*] 40 mg PO BID 6AM 6PM #60 tab 01/28/19 Cyanocobalamin (Vitamin B-12) [Vitamin B-12] 1,000 mcg PO DAILY #30 tablet 02/10 Ferrous Sulfate [Iron] 325 mg PO BID #60 tablet 02/10/19 New Medications: Cyanocobalamin (Vitamin B-12) [Vitamin B-12] 1,000 mcg PO DAILY #30 tablet Ferrous Sulfate [Iron] 325 mg PO BID #60 tablet Patient Discharge Instructions: 1. Recommend follow up with her PCP and Cardiology within 1 week to follow up this hospitalization. 2. Patient presented with atrial fibrillation with RVR. Patient with history of chronic atrial fibrillation and chronic anti coagulation therapy with multiple prior cardioversions. Patient had been taking double the amount of her Betapace prior to admission. When her blood pressure and heart rate dropped she stopped the Betapace. She also stopped her Eliquis due to some rectal bleeding related to internal hemorrhoids. She presented with atrial fibrillation with RVR and anemia. Patient was admitted for further evaluation and treatment. Cardiology was consulted. Cardiology restarted her Betapace at the correct dose of 40 mg 1 pill twice daily. Anti coagulation therapy-Eliquis 5 mg 1 pill twice daily was also restarted. During the course of her stay patient required cardioversion. This was successful and heart rate now in normal sinus rhythm. At discharge she will continue with Betapace 40 mg 1 pill twice daily and Eliquis 5 mg 1 pill twice daily. Recommend follow up with cardiology in 1 week to follow up this hospitalization. Cardiology plans send the patient to electrophysiology for consideration of cardiac ablation. This will be arranged by the help of her pier master. 3. Patient also presented with acute on chronic anemia. Patient with history of internal hemorrhoids on chronic anti coagulation therapy and iron/B12 deficiency. Hemoglobin was 7.2. During the course of her stay patient was given 2 units of packed red blood cells. Hemoglobin has remained stable. No further rectal bleeding identified. At discharge she will continue with iron 325 mg 1 pill twice daily and vitamin-B 12 1 pill daily. Recommend to recheck CBC in 2-4 weeks to monitor stability. Patient to monitor for rectal bleeding. Patient has seen GI as an outpatient. No GI intervention is recommended at this time due to her cardiac issues. Once cardiac issues are better controlled, then patient can be considered for GI intervention to address her internal hemorrhoids. Recommend follow up with GI as directed. 4. Patient with history of hypertension. Blood pressures have remained low. Avapro has been discontinued. At discharge, Avapro will continue to be discontinued. Recommend to monitor blood pressures closely. Recommend maintain blood pressures less 140/80. Further adjustment can be done by her PCP or cardiology. 5. Patient with CAD and diastolic CHF. Patient has been taking Lasix 20 mg 1 pill twice daily with potassium supplementation. Patient will continue with a 1500 cc per day fluid restriction. She is to monitor her weight daily. If her weight increases by more than 5 lb she is to contact her PCP for further recommendation. She is to hold Lasix 20 mg 1 pill twice daily and her potassium supplementation if with no significant edema to the lower extremities or shortness of breath. 6. Patient with hyperlipidemia. At discharge she will continue with Lipitor 80 mg daily. Diet: AHA Activity: Fall precautions Time spent managing pt's care (in minutes): 55
[2019-02-10] MEDS: APIXABAN 5 MG TABLET PO SCH (09:28)
[2019-02-10] MEDS ORDERED: ACETAMINOPHEN 500 MG TAB PO PRN (09:39)
[2019-02-10] MEDS ORDERED: TRAMADOL HCL 50 MG TAB PO ONE (11:22)
[2019-02-10 13:30] VITALS: BP 124/68
--- NOTE | 2019-02-10 13:45 | OP ---
Surgeon: Umesh Ulloa MD Procedure: Direct current cardioversion. Indication: Atrial fib, unresponsive to medicines. Procedure In Detail: The patient was fasting in the ICU. She gave informed consent. She had been a nticoagulated with Eliquis 5 b.i.d. constantly for several months. She was sedated with 5 mg Versed. Anterior-posterior paddles were placed on her chest. She was shocked with a single 200 joule shock synchronized to QRS complex, this resulted in sinus rhythm. Mild hypotension was observed immediate ly postprocedure. This will be treated with some intravenous fluids and we can reverse the Versed wi th Romazicon if needed. She will be stable enough to be discharged later today, we suspect. KENYA/MILY Voice ID: [id number] Report ID: [id number]
[2019-02-10 17:02] VITALS: TEMP 97.8
== END 2019-02-10 14:15 | disposition home health service (06) | DRG 309 ==
LOC: ER 17:53 → 3RD-ICU 20:36
PROVIDERS: ADMIT Internal Medicine; ATTEND Family Medicine
PROC: 30233N1 Transfusion of Nonautologous Red Blood Cells into Peripheral Vein, Percutaneous Approach (ICD-10-PCS; 2019-02-08)
PROC: 5A2204Z Restoration of Cardiac Rhythm, Single (ICD-10-PCS; principal; 2019-02-10)
DX: I48.2 Chronic atrial fibrillation (principal); I50.32 Chronic diastolic (congestive) heart failure; I11.0 Hypertensive heart disease with heart failure; I25.10 Atherosclerotic heart disease of native coronary artery without angina pectoris; K64.8 Other hemorrhoids; D50.9 Iron deficiency anemia, unspecified; D51.9 Vitamin B12 deficiency anemia, unspecified; E78.5 Hyperlipidemia, unspecified; I95.9 Hypotension, unspecified; I25.2 Old myocardial infarction; Z87.891 Personal history of nicotine dependence; Z95.5 Presence of coronary angioplasty implant and graft; Z88.5 Allergy status to narcotic agent; Z88.0 Allergy status to penicillin
CPT/HCPCS: 36415; 36430; 71045; 80048; 80076; 83735; 83880; 84484; 85014; 85018; 85025; 85610; 86850; 86900; 86901; 93005; 96374; 96375; 99284; J1940; J2250; J2765; J7030; P9016

== ENCOUNTER 2019-08-02 15:58 | Emergency (ER) | payer OTHER ==
--- OUTSIDE RECORDS SUMMARY | 2019-08-02 16:02 | XMS REPORT ---
:1945 Author Organization [facility] Address [address] [place] [address] [address]. [address] [place] [address] Care Team Providers Name Role Phone RICK [...] EXAM 2018-11-02 17:45:00 Surgical Pathology Report Case: [id number] Authorizing Provider: Rick Flynn, Collected: 10/27/2018 0955 Ordering Location: [facility] Received: 10/27/2018 1010 PERIOPERATIVE SERVICES Pathologist: Gilbert Anderson MD Specimen: Plaque, LEFT CAROTID PLAQUE ARTERY, LEFT CAROTID, ENDARTERECTOMY:CALCIFIC ATHEROSCLEROTIC PLAQUE Signing Pathologist Direct Phone Line: [phone] signed by Gilbert Anderson MD on 11/02/2018 at 5:45 [id number]; [id number] carotid stenosisLeft carotid plaqueThe specimen is received in a formalin-filled container and labeled with the patient's information and labeled "left carotid plaque" and consists of a calcified tubular shaped segment of tissue measuring 1.5 cm in length x 0.6 cm in diameter. Crosscutter Rolled Glass sections are submitted A1 for decal. CG/pl Performed CBC W/PLT COUNT & AUTO DIFFERENTIAL 2018-10-29 06:55:00 Test Item Value Reference Range Comments WHITE BLOOD CELL COUNT (BEAKER) (test osct=736) 4.6 K/ L 3.5-10.5 RED BLOOD CELL COUNT (BEAKER) (test uxcd=192) 3.30 M/ L 3.93-5.22 HEMOGLOBIN (BEAKER) (test mmxu=644) 7.4 GM/DL 11.2-15.7 HEMATOCRIT (BEAKER) (test czez=419) 25.6 % 34.1-44.9 MEAN CORPUSCULAR VOLUME (BEAKER) (test iyrf=473) 77.6 fL 79.4-94.8 MEAN CORPUSCULAR HEMOGLOBIN (BEAKER) (test gcho=933) 22.4 pg 25.6-32.2 MEAN CORPUSCULAR HEMOGLOBIN CONC (BEAKER) (test jtzj=831) 28.9 GM/DL 32.2- 35.5 RED CELL DISTRIBUTION WIDTH (BEAKER) (test ylrw=836) 18.2 % 11.7-14.4 PLATELET COUNT (BEAKER) (test hahx=904) 149 K/CU MM 150-450 MEAN PLATELET VOLUME (BEAKER) (test rkfz=028) 12.9 fL 9.4-12.3 NUCLEATED RED BLOOD CELLS (BEAKER) (test ckru=468) 0 /100 WBC 0-0 NEUTROPHILS RELATIVE PERCENT (BEAKER) (test wmrf=265) 58 % LYMPHOCYTES RELATIVE PERCENT (BEAKER) (test bxsl=036) 25 % MONOCYTES RELATIVE PERCENT (BEAKER) (test hwir=990) 12 % EOSINOPHILS RELATIVE PERCENT (BEAKER) (test zndw=649) 5 % BASOPHILS RELATIVE PERCENT (BEAKER) (test lpny=311) 0 % NEUTROPHILS ABSOLUTE COUNT (BEAKER) (test amri=110) 2.66 K/ L 1.56-6.13 LYMPHOCYTES ABSOLUTE COUNT (BEAKER) (test xuyo=440) 1.12 K/ L 1.18-3.74 MONOCYTES ABSOLUTE COUNT (BEAKER) (test zhxv=828) 0.54 K/ L 0.24-0.36 EOSINOPHILS ABSOLUTE COUNT (BEAKER) (test svrk=061) 0.21 K/ L 0.04-0.36 BASOPHILS ABSOLUTE COUNT (BEAKER) (test pbsf=696) 0.02 K/ L 0.01-0.08 IMMATURE GRANULOCYTES-RELATIVE PERCENT (BEAKER) (test 0 % 0-1 cywb=3076) [id number] 06:04:00 Test Item Value Reference Range Comments MAGNESIUM (BEAKER) (test qtyg=336) 1.9 mg/dL 1.6-2.6 BASIC METABOLIC [id number] 06:04:00 Test Item Value Reference Range Comments SODIUM (BEAKER) (test 135 meq/L 136-145 jtqt=050) POTASSIUM (BEAKER) (test 3.3 meq/L 3.5-5.1 dnli=211) CHLORIDE (BEAKER) (test 103 meq/L 98-107 sdyf=185) CO2 (BEAKER) (test 23 meq/L 22-29 yrir=723) BLOOD UREA NITROGEN 9 mg/dL 7-21 (BEAKER) (test hcnv=616) CREATININE (BEAKER) (test 0.84 mg/dL 0.57-1.25 ihvi=529) GLUCOSE RANDOM (BEAKER) 87 mg/dL 70-105 (test aulh=592) CALCIUM (BEAKER) (test 8.2 mg/dL 8.4-10.2 yxqs=681) EGFR (BEAKER) (test 67 mL/min/1.73 sq m ESTIMATED GFR IS NOT hvan=1631) ACCURATE CREATININE CLEARANCE IN PREDICTING GLOMERULAR FILTRATION RATE. ESTIMATED GFR IS NOT APPLICABLE FOR DIALYSIS PATIENTS. HEMOGLOBIN AND [id number] 14:48:00 Test Item Value Reference Range Comments HEMOGLOBIN (BEAKER) (test pgdy=466) 7.4 GM/DL 11.2-15.7 HEMATOCRIT (BEAKER) (test kvmf=625) 25.9 % 34.1-44.9 BASIC METABOLIC [id number] 08:59:00 Test Item Value Reference Range Comments SODIUM (BEAKER) (test 134 meq/L 136-145 dzqp=859) POTASSIUM (BEAKER) (test 3.5 meq/L 3.5-5.1 flwb=047) CHLORIDE (BEAKER) (test 106 meq/L 98-107 rtik=103) CO2 (BEAKER) (test 20 meq/L 22-29 mdeo=047) BLOOD UREA NITROGEN 13 mg/dL 7-21 (BEAKER) (test qdsj=380) CREATININE (BEAKER) (test 0.92 mg/dL 0.57-1.25 ykrs=085) GLUCOSE RANDOM (BEAKER) 122 mg/dL 70-105 (test nrxa=789) CALCIUM (BEAKER) (test 8.3 mg/dL 8.4-10.2 ueua=366) EGFR (BEAKER) (test 60 mL/min/1.73 sq m ESTIMATED GFR IS NOT npin=4877) ACCURATE CREATININE CLEARANCE IN PREDICTING GLOMERULAR FILTRATION RATE. ESTIMATED GFR IS NOT APPLICABLE FOR DIALYSIS PATIENTS. HEMOGLOBIN AND [id number] 08:43:00 Test Item Value Reference Range Comments HEMOGLOBIN (BEAKER) (test yngo=019) 7.7 GM/DL 11.2-15.7 HEMATOCRIT (BEAKER) (test bmjr=321) 26.7 % 34.1-44.9 HEMOGLOBIN AND [id number] 02:15:00 Test Item Value Reference Range Comments HEMOGLOBIN (BEAKER) (test sqfw=119) 6.2 GM/DL 11.2-15.7 HEMATOCRIT (BEAKER) (test mfpm=384) 22.2 % 34.1-44.9 [id number] 01:43:00 Test Item Value Reference Range Comments MAGNESIUM (BEAKER) (test cqfy=137) 1.6 mg/dL 1.6-2.6 BASIC METABOLIC [id number] 01:43:00 Test Item Value Reference Range Comments SODIUM (BEAKER) (test 136 meq/L 136-145 vmde=172) POTASSIUM (BEAKER) (test 3.7 meq/L 3.5-5.1 mxwx=309) CHLORIDE (BEAKER) (test 106 meq/L 98-107 ncfz=850) CO2 (BEAKER) (test 23 meq/L 22-29 syid=364) BLOOD UREA NITROGEN 16 mg/dL 7-21 (BEAKER) (test lryx=510) CREATININE (BEAKER) (test 1.02 mg/dL 0.57-1.25 qmpz=240) GLUCOSE RANDOM (BEAKER) 98 mg/dL 70-105 (test jjqz=134) CALCIUM (BEAKER) (test 8.6 mg/dL 8.4-10.2 dxhs=407) EGFR (BEAKER) (test 53 mL/min/1.73 sq m ESTIMATED GFR IS NOT lzll=9636) ACCURATE CREATININE CLEARANCE IN PREDICTING GLOMERULAR FILTRATION RATE. ESTIMATED GFR IS NOT APPLICABLE FOR DIALYSIS PATIENTS. CBC (HEMOGRAM ONLY)2018-10-28 01:04:00 Test Item Value Reference Range Comments WHITE BLOOD CELL COUNT (BEAKER) (test nvvp=716) 5.1 K/ L 3.5-10.5 RED BLOOD CELL COUNT (BEAKER) (test wndd=448) 3.12 M/ L 3.93-5.22 HEMOGLOBIN (BEAKER) (test dwep=300) 6.5 GM/DL 11.2-15.7 HEMATOCRIT (BEAKER) (test ekmx=994) 24.0 % 34.1-44.9 MEAN CORPUSCULAR VOLUME (BEAKER) (test ugov=426) 76.9 fL 79.4-94.8 MEAN CORPUSCULAR HEMOGLOBIN (BEAKER) (test 20.8 pg 25.6-32.2 aofi=002) MEAN CORPUSCULAR HEMOGLOBIN CONC (BEAKER) (test 27.1 GM/DL 32.2-35.5 xafb=607) RED CELL DISTRIBUTION WIDTH (BEAKER) (test 18.8 % 11.7-14.4 tews=844) PLATELET COUNT (BEAKER) (test bova=986) 177 K/CU MM 150-450 MEAN PLATELET VOLUME (BEAKER) (test xvro=182) 12.8 fL 9.4-12.3 NUCLEATED RED BLOOD CELLS (BEAKER) (test 0 /100 WBC 0-0 irjl=086) PLATELET AGGREGATION: FUNCTION [id number] 19:33:00 Test Item Value Reference Range Comments WEAK ADP RESULT(BEAKER) (test 98 % 60-91 pyay=3871) PLATELET FUNCTION SCREEN 60-100% indicates normal INTERP (BEAKER) (test platelet function cjrs=4007) [id number] (BEAKER) Ema Londono MD (electronic (test rokh=9975) signature) PLATELET COUNT AGG (BEAKER) 171 K/CU MM 150-450 (test ktbi=2571) Platelet Function Screen results may be falsely low with platelet counts<100, 000/cu mm.for patients on clopidogrel in past two weeksfor patients on clopidogrel in past two weeksfor patients on clopidogrel in past two weeksHGB/ HCT (H&H) - STAT [id number] 11:58:00 Test Item Value Reference Range Comments HEMOGLOBIN (BEAKER) (test oytb=950) 7.6 g/dL 12.0-15.0 HEMATOCRIT (BEAKER) (test riga=586) 22.0 % 36.0-45.0 GLUCOSE-STAT [id number] 11:57:00 Test Item Value Reference Range Comments GLUCOSE RANDOM (BEAKER) (test cbue=313) 96 mg/dL 70-110 POTASSIUM-STAT [id number] 11:57:00 Test Item Value Reference Range Comments POTASSIUM (BEAKER) (test nboq=979) 3.8 meq/L 3.6-5.5 POTASSIUM-STAT [id number] 09:09:00 Test Item Value Reference Range Comments POTASSIUM (BEAKER) (test oylo=443) 3.6 meq/L 3.6-5.5 BLOOD GAS, [id number] 09:09:00 Test Item Value Reference Range Comments PH ARTERIAL (BEAKER) (test bhip=069) 7.32 7.35-7.45 PCO2 ARTERIAL (BEAKER) (test vmck=910) 46 mmHg 35-45 PO2 ARTERIAL (BEAKER) (test akcp=271) 274 mmHg 80-90 O2 SATURATION ARTERIAL (BEAKER) (test zhpo=910) 99.6 % 96.0-97.0 HCO3 ARTERIAL (BEAKER) (test rqgz=912) 23 mmol/L 21-29 BASE EXCESS ARTERIAL (BEAKER) (test hdio=555) -3.2 mmol/L -2.0-3.0 PATIENT TEMPERATURE (BEAKER) (test jnaa=9338) 36.0 C FIO2 (BEAKER) (test htss=5581) 100.0 % GLUCOSE-STAT [id number] 09:09:00 Test Item Value Reference Range Comments GLUCOSE RANDOM (BEAKER) (test qcfy=673) 112 mg/dL 70-110 HGB/HCT (H&H) - STAT [id number] 09:09:00 Test Item Value Reference Range Comments HEMOGLOBIN (BEAKER) (test yved=813) 7.5 g/dL 12.0-15.0 HEMATOCRIT (BEAKER) (test jakk=203) 22.0 % 36.0-45.0 CALCIUM, [id number] 09:09:00 Test Item Value Reference Range Comments CALCIUM IONIZED (BEAKER) (test ilwh=065) 1.04 mmol/L 1.12-1.27 PH, BLOOD (BEAKER) (test trhf=7243) 7.30 SODIUM NA-STAT [id number] 09:08:00 Test Item Value Reference Range Comments SODIUM (BEAKER) (test xtrw=318) 138 meq/L 135-148 POCT-GLUCOSE [id number] 06:33:00 Test Item Value Reference Range Comments POC-GLUCOSE METER (BEAKER) 110 mg/dL 70-[address] [facility] [address] (test uaex=1625) [facility] [address] RAD, CHEST, 2 [id number] 13:20:00Reason for exam:->pre op screenFINAL REPORT Chest [...] Maurice Verified Date/Time: 10/26/2018 13:20:52 Reading Location: [address] Consult Reading Room LIPID [id number] 12:51:00 Test Item Value Reference Range Comments TRIGLYCERIDES (BEAKER) (test xebi=115) 110 mg/dL CHOLESTEROL (BEAKER) (test vtzq=229) 203 mg/dL HDL CHOLESTEROL (BEAKER) (test tdwi=644) 74 mg/dL LDL CHOLESTEROL CALCULATED (BEAKER) (test 107 mg/dL puoz=245) Triglyceride Reference Range: Low Risk <150 Borderline 150- 199 High Risk 200-499 Very High Risk >=500Cholesterol Reference Range: Low Risk <200 Borderline 200-239 High Risk > 240HDL Cholesterol Reference Range: Low Risk >=60 High Risk <40LDL Cholesterol Reference Range: Optimal <100 Near Optimal 100-129 Borderline 130-159 High 160-189 Very High >=190BASIC METABOLIC [id number] 12:51:00 Test Item Value Reference Range Comments SODIUM (BEAKER) (test 139 meq/L 136-145 xisi=047) POTASSIUM (BEAKER) (test 4.0 meq/L 3.5-5.1 tkeg=408) CHLORIDE (BEAKER) (test 105 meq/L 98-107 xohp=279) CO2 (BEAKER) (test 23 meq/L 22-29 qsni=584) BLOOD UREA NITROGEN 17 mg/dL 7-21 (BEAKER) (test xjxj=544) CREATININE (BEAKER) (test 1.05 mg/dL 0.57-1.25 miff=598) GLUCOSE RANDOM (BEAKER) 85 mg/dL 70-105 (test aovs=147) CALCIUM (BEAKER) (test 9.5 mg/dL 8.4-10.2 prmr=606) EGFR (BEAKER) (test 52 mL/min/1.73 sq m ESTIMATED GFR IS NOT ltne=6685) ACCURATE CREATININE CLEARANCE IN PREDICTING GLOMERULAR FILTRATION RATE. ESTIMATED GFR IS NOT APPLICABLE FOR DIALYSIS PATIENTS. CBC W/PLT COUNT & AUTO [id number] 12:47:00 Test Item Value Reference Range Comments WHITE BLOOD CELL COUNT (BEAKER) (test amwa=327) 6.4 K/ L 3.5-10.5 RED BLOOD CELL COUNT (BEAKER) (test ifzw=687) 3.53 M/ L 3.93-5.22 HEMOGLOBIN (BEAKER) (test vrvn=983) 7.5 GM/DL 11.2-15.7 HEMATOCRIT (BEAKER) (test amiw=599) 27.3 % 34.1-44.9 MEAN CORPUSCULAR VOLUME (BEAKER) (test jqpw=581) 77.3 fL 79.4-94.8 MEAN CORPUSCULAR HEMOGLOBIN (BEAKER) (test 21.2 pg 25.6-32.2 ipmr=547) MEAN CORPUSCULAR HEMOGLOBIN CONC (BEAKER) (test 27.5 GM/DL 32.2-35.5 waqa=552) RED CELL DISTRIBUTION WIDTH (BEAKER) (test 18.4 % 11.7-14.4 xfkf=173) PLATELET COUNT (BEAKER) (test zpus=220) 189 K/CU MM 150-450 MEAN PLATELET VOLUME (BEAKER) (test wkoa=815) 12.3 fL 9.4-12.3 NUCLEATED RED BLOOD CELLS (BEAKER) (test 0 /100 WBC 0-0 rjfy=980) NEUTROPHILS RELATIVE PERCENT (BEAKER) (test 61 % zwwv=246) LYMPHOCYTES RELATIVE PERCENT (BEAKER) (test 25 % kebv=039) MONOCYTES RELATIVE PERCENT (BEAKER) (test 9 % apjt=344) EOSINOPHILS RELATIVE PERCENT (BEAKER) (test 4 % yyqv=022) BASOPHILS RELATIVE PERCENT (BEAKER) (test 1 % vgme=662) NEUTROPHILS ABSOLUTE COUNT (BEAKER) (test 3.90 K/ L 1.56-6.13 mzjq=177) LYMPHOCYTES ABSOLUTE COUNT (BEAKER) (test 1.62 K/ L 1.18-3.74 zmbg=163) MONOCYTES ABSOLUTE COUNT (BEAKER) (test 0.56 K/ L 0.24-0.36 qeoy=509) EOSINOPHILS ABSOLUTE COUNT (BEAKER) (test 0.24 K/ L 0.04-0.36 ziri=867) BASOPHILS ABSOLUTE COUNT (BEAKER) (test 0.04 K/ L 0.01-0.08 bydv=334) IMMATURE GRANULOCYTES-RELATIVE PERCENT (BEAKER) 1 % 0-1 (test tfuj=6559) PROTHROMBIN [id number] 12:45:00 Test Item Value Reference Range Comments PROTIME (BEAKER) (test ouwg=256) 13.1 seconds 11.7-14.7 INR (BEAKER) (test dnmh=203) 1.0 <=5.9 RECOMMENDED COUMADIN/WARFARIN INR THERAPY RANGESSTANDARD DOSE: 2.0 - 3.0 Includes: PROPHYLAXIS forvenous thrombosis, systemic embolization; TREATMENT for venous thrombosis and/or pulmonary embolus.HIGH RISK: Target INR is 2.5-3.5 for patients with mechanical heart valves.[id number] 07:41:00 Test Item Value Reference Range Comments MAGNESIUM (BEAKER) (test ibzs=765) 1.9 mg/dL 1.6-2.6 BASIC METABOLIC [id number] 07:41:00 Test Item Value Reference Range Comments SODIUM (BEAKER) (test 137 meq/L 136-145 pbvb=967) POTASSIUM (BEAKER) (test 3.5 meq/L 3.5-5.1 hxks=527) CHLORIDE (BEAKER) (test 100 meq/L 98-107 rrev=988) CO2 (BEAKER) (test 24 meq/L 22-29 aocw=376) BLOOD UREA NITROGEN 13 mg/dL 7-21 (BEAKER) (test wpmt=872) CREATININE (BEAKER) (test 0.80 mg/dL 0.57-1.25 rlnt=566) GLUCOSE RANDOM (BEAKER) 71 mg/dL 70-105 (test jhml=168) CALCIUM (BEAKER) (test 9.5 mg/dL 8.4-10.2 mpnj=450) EGFR (BEAKER) (test 71 mL/min/1.73 sq m ESTIMATED GFR IS NOT zuhn=7998) ACCURATE CREATININE CLEARANCE IN PREDICTING GLOMERULAR FILTRATION RATE. ESTIMATED GFR IS NOT APPLICABLE FOR DIALYSIS PATIENTS. CBC W/PLT COUNT & AUTO [id number] 07:12:00 Test Item Value Reference Range Comments WHITE BLOOD CELL COUNT (BEAKER) (test ysoq=196) 5.3 K/ L 3.5-10.5 RED BLOOD CELL COUNT (BEAKER) (test qjcz=142) 3.76 M/ L 3.93-5.22 HEMOGLOBIN (BEAKER) (test hbsh=816) 10.1 GM/DL 11.2-15.7 HEMATOCRIT (BEAKER) (test njng=835) 33.1 % 34.1-44.9 MEAN CORPUSCULAR VOLUME (BEAKER) (test jdny=171) 88.0 fL 79.4-94.8 MEAN CORPUSCULAR HEMOGLOBIN (BEAKER) (test 26.9 pg 25.6-32.2 ehjf=793) MEAN CORPUSCULAR HEMOGLOBIN CONC (BEAKER) (test 30.5 GM/DL 32.2-35.5 rlad=442) RED CELL DISTRIBUTION WIDTH (BEAKER) (test 14.4 % 11.7-14.4 nlox=574) PLATELET COUNT (BEAKER) (test ofkc=700) 218 K/CU MM 150-450 MEAN PLATELET VOLUME (BEAKER) (test gdmi=410) 12.7 fL 9.4-12.3 NUCLEATED RED BLOOD CELLS (BEAKER) (test 0 /100 WBC 0-0 yjls=956) NEUTROPHILS RELATIVE PERCENT (BEAKER) (test 68 % rkff=283) LYMPHOCYTES RELATIVE PERCENT (BEAKER) (test 19 % nfqn=006) MONOCYTES RELATIVE PERCENT (BEAKER) (test 9 % qtps=734) EOSINOPHILS RELATIVE PERCENT (BEAKER) (test 3 % pdbe=294) BASOPHILS RELATIVE PERCENT (BEAKER) (test 1 % zaat=709) NEUTROPHILS ABSOLUTE COUNT (BEAKER) (test 3.59 K/ L 1.56-6.13 yzuf=684) LYMPHOCYTES ABSOLUTE COUNT (BEAKER) (test 0.97 K/ L 1.18-3.74 csrf=304) MONOCYTES ABSOLUTE COUNT (BEAKER) (test 0.46 K/ L 0.24-0.36 dgdw=477) EOSINOPHILS ABSOLUTE COUNT (BEAKER) (test 0.13 K/ L 0.04-0.36 qapm=171) BASOPHILS ABSOLUTE COUNT (BEAKER) (test 0.03 K/ L 0.01-0.08 ucoj=157) IMMATURE GRANULOCYTES-RELATIVE PERCENT (BEAKER) 1 % 0-1 (test ofsu=7668) [id number] 07:19:00 Test Item Value Reference Range Comments FERRITIN (BEAKER) (test sijs=798) 45 ng/mL 5-275 IRON, TIBC, % SAT. (WITHOUT FERRITIN)2018-02-12 07:01:00 Test Item Value Reference Range Comments IRON (BEAKER) (test lcbd=124) 41 ug/dL 40-160 TOTAL IRON BINDING CAPACITY (BEAKER) (test 289 ug/dL 250-450 xzpi=593) IRON % SATURATION (2) (BEAKER) (test fhfr=2896) 14 % 20-55 [id number] 06:41:00 Test Item Value Reference Range Comments MAGNESIUM (BEAKER) (test uqup=621) 1.9 mg/dL 1.6-2.6 BASIC METABOLIC [id number] 06:41:00 Test Item Value Reference Range Comments SODIUM (BEAKER) (test 135 meq/L 136-145 ihsd=721) POTASSIUM (BEAKER) (test 3.5 meq/L 3.5-5.1 inuz=753) CHLORIDE (BEAKER) (test 97 meq/L 98-107 uwxk=740) CO2 (BEAKER) (test 26 meq/L 22-29 bmlf=257) BLOOD UREA NITROGEN 14 mg/dL 7-21 (BEAKER) (test qili=743) CREATININE (BEAKER) (test 0.87 mg/dL 0.57-1.25 zepp=779) GLUCOSE RANDOM (BEAKER) 91 mg/dL 70-105 (test rocs=643) CALCIUM (BEAKER) (test 9.5 mg/dL 8.4-10.2 ymaj=446) EGFR (BEAKER) (test 64 mL/min/1.73 sq m ESTIMATED GFR IS NOT mxai=9104) ACCURATE CREATININE CLEARANCE IN PREDICTING GLOMERULAR FILTRATION RATE. ESTIMATED GFR IS NOT APPLICABLE FOR DIALYSIS PATIENTS. CBC W/PLT COUNT & AUTO [id number] 06:20:00 Test Item Value Reference Range Comments WHITE BLOOD CELL COUNT (BEAKER) (test fwdr=876) 5.7 K/ L 3.5-10.5 RED BLOOD CELL COUNT (BEAKER) (test fafr=418) 3.60 M/ L 3.93-5.22 HEMOGLOBIN (BEAKER) (test ljmo=561) 9.7 GM/DL 11.2-15.7 HEMATOCRIT (BEAKER) (test uxtk=431) 31.2 % 34.1-44.9 MEAN CORPUSCULAR VOLUME (BEAKER) (test qvsi=070) 86.7 fL 79.4-94.8 MEAN CORPUSCULAR HEMOGLOBIN (BEAKER) (test 26.9 pg 25.6-32.2 imqq=340) MEAN CORPUSCULAR HEMOGLOBIN CONC (BEAKER) (test 31.1 GM/DL 32.2-35.5 stvx=259) RED CELL DISTRIBUTION WIDTH (BEAKER) (test 14.5 % 11.7-14.4 soln=835) PLATELET COUNT (BEAKER) (test pwsm=143) 208 K/CU MM 150-450 MEAN PLATELET VOLUME (BEAKER) (test wtpe=298) 12.7 fL 9.4-12.3 NUCLEATED RED BLOOD CELLS (BEAKER) (test 0 /100 WBC 0-0 uzgj=170) NEUTROPHILS RELATIVE PERCENT (BEAKER) (test 68 % pezh=914) LYMPHOCYTES RELATIVE PERCENT (BEAKER) (test 19 % hjgv=947) MONOCYTES RELATIVE PERCENT (BEAKER) (test 8 % tkld=790) EOSINOPHILS RELATIVE PERCENT (BEAKER) (test 3 % lidp=704) BASOPHILS RELATIVE PERCENT (BEAKER) (test 1 % iief=962) NEUTROPHILS ABSOLUTE COUNT (BEAKER) (test 3.90 K/ L 1.56-6.13 nhly=003) LYMPHOCYTES ABSOLUTE COUNT (BEAKER) (test 1.08 K/ L 1.18-3.74 alio=874) MONOCYTES ABSOLUTE COUNT (BEAKER) (test 0.48 K/ L 0.24-0.36 qfai=472) EOSINOPHILS ABSOLUTE COUNT (BEAKER) (test 0.17 K/ L 0.04-0.36 vuwm=909) BASOPHILS ABSOLUTE COUNT (BEAKER) (test 0.03 K/ L 0.01-0.08 vmjj=985) IMMATURE GRANULOCYTES-RELATIVE PERCENT (BEAKER) 1 % 0-1 (test rguw=2298) [id number] 06:02:00 Test Item Value Reference Range Comments MAGNESIUM (BEAKER) (test uait=551) 1.8 mg/dL 1.6-2.6 BASIC METABOLIC [id number] 06:02:00 Test Item Value Reference Range Comments SODIUM (BEAKER) (test 135 meq/L 136-145 tbxf=654) POTASSIUM (BEAKER) (test 3.4 meq/L 3.5-5.1 gjqf=865) CHLORIDE (BEAKER) (test 97 meq/L 98-107 qvnm=491) CO2 (BEAKER) (test 28 meq/L 22-29 wazh=108) BLOOD UREA NITROGEN 19 mg/dL 7-21 (BEAKER) (test hxof=280) CREATININE (BEAKER) (test 1.04 mg/dL 0.57-1.25 bkvq=622) GLUCOSE RANDOM (BEAKER) 98 mg/dL 70-105 (test zqhy=655) CALCIUM (BEAKER) (test 9.6 mg/dL 8.4-10.2 rgsb=252) EGFR (BEAKER) (test 52 mL/min/1.73 sq m ESTIMATED GFR IS NOT aket=0484) ACCURATE CREATININE CLEARANCE IN PREDICTING GLOMERULAR FILTRATION RATE. ESTIMATED GFR IS NOT APPLICABLE FOR DIALYSIS PATIENTS. CBC W/PLT COUNT & AUTO [id number] 05:35:00 Test Item Value Reference Range Comments WHITE BLOOD CELL COUNT (BEAKER) (test kkkl=235) 5.8 K/ L 3.5-10.5 RED BLOOD CELL COUNT (BEAKER) (test nhsq=530) 3.58 M/ L 3.93-5.22 HEMOGLOBIN (BEAKER) (test vwfc=435) 9.9 GM/DL 11.2-15.7 HEMATOCRIT (BEAKER) (test txkr=005) 31.5 % 34.1-44.9 MEAN CORPUSCULAR VOLUME (BEAKER) (test ibmm=906) 88.0 fL 79.4-94.8 MEAN CORPUSCULAR HEMOGLOBIN (BEAKER) (test 27.7 pg 25.6-32.2 yquk=392) MEAN CORPUSCULAR HEMOGLOBIN CONC (BEAKER) (test 31.4 GM/DL 32.2-35.5 gbuf=828) RED CELL DISTRIBUTION WIDTH (BEAKER) (test 14.5 % 11.7-14.4 nojl=559) PLATELET COUNT (BEAKER) (test egkx=321) 183 K/CU MM 150-450 MEAN PLATELET VOLUME (BEAKER) (test nviv=529) 12.1 fL 9.4-12.3 NUCLEATED RED BLOOD CELLS (BEAKER) (test 0 /100 WBC 0-0 fdir=304) NEUTROPHILS RELATIVE PERCENT (BEAKER) (test 68 % cpgk=268) LYMPHOCYTES RELATIVE PERCENT (BEAKER) (test 18 % fufn=514) MONOCYTES RELATIVE PERCENT (BEAKER) (test 9 % wyyv=988) EOSINOPHILS RELATIVE PERCENT (BEAKER) (test 4 % dhjb=694) BASOPHILS RELATIVE PERCENT (BEAKER) (test 1 % rmav=269) NEUTROPHILS ABSOLUTE COUNT (BEAKER) (test 3.90 K/ L 1.56-6.13 fabn=080) LYMPHOCYTES ABSOLUTE COUNT (BEAKER) (test 1.05 K/ L 1.18-3.74 kpds=928) MONOCYTES ABSOLUTE COUNT (BEAKER) (test 0.51 K/ L 0.24-0.36 ynzf=721) EOSINOPHILS ABSOLUTE COUNT (BEAKER) (test 0.20 K/ L 0.04-0.36 gkqo=084) BASOPHILS ABSOLUTE COUNT (BEAKER) (test 0.03 K/ L 0.01-0.08 umik=266) IMMATURE GRANULOCYTES-RELATIVE PERCENT (BEAKER) 1 % 0-1 (test nabp=6984) MR, SPINE, LUMBAR, WITHOUT [id number] 14:56:00FINAL REPORT MRI of the lumbar spine [...] Catrachita Calle Verified Date/Time: 02/10/2018 14:56:55Reading Location: [address] Consult Reading Room MR, SPINE, THORACIC, WITHOUT [id number] 14:43: 00FINAL REPORT MRI of the thoracic [...] Calle Verified Date/Time: 02/10/2018 14:43:52 Reading Location: [address] Consult Reading Room [id number] 04:38:00 Test Item Value Reference Range Comments MAGNESIUM (BEAKER) (test vtvl=824) 2.1 mg/dL 1.6-2.6 BASIC METABOLIC [id number] 04:38:00 Test Item Value Reference Range Comments SODIUM (BEAKER) (test 137 meq/L 136-145 scsg=788) POTASSIUM (BEAKER) (test 3.4 meq/L 3.5-5.1 sqzw=331) CHLORIDE (BEAKER) (test 96 meq/L 98-107 egha=489) CO2 (BEAKER) (test 30 meq/L 22-29 hwhd=146) BLOOD UREA NITROGEN 15 mg/dL 7-21 (BEAKER) (test ecnv=061) CREATININE (BEAKER) (test 1.04 mg/dL 0.57-1.25 fywt=964) GLUCOSE RANDOM (BEAKER) 92 mg/dL 70-105 (test fcke=019) CALCIUM (BEAKER) (test 9.9 mg/dL 8.4-10.2 fkvk=038) EGFR (BEAKER) (test 52 mL/min/1.73 sq m ESTIMATED GFR IS NOT pywh=7692) ACCURATE CREATININE CLEARANCE IN PREDICTING GLOMERULAR FILTRATION RATE. ESTIMATED GFR IS NOT APPLICABLE FOR DIALYSIS PATIENTS. CBC W/PLT COUNT & AUTO [id number] 04:21:00 Test Item Value Reference Range Comments WHITE BLOOD CELL COUNT (BEAKER) (test tsnf=806) 6.7 K/ L 3.5-10.5 RED BLOOD CELL COUNT (BEAKER) (test dnrc=763) 3.53 M/ L 3.93-5.22 HEMOGLOBIN (BEAKER) (test zlqo=904) 9.3 GM/DL 11.2-15.7 HEMATOCRIT (BEAKER) (test cwhr=334) 31.0 % 34.1-44.9 MEAN CORPUSCULAR VOLUME (BEAKER) (test vche=918) 87.8 fL 79.4-94.8 MEAN CORPUSCULAR HEMOGLOBIN (BEAKER) (test 26.3 pg 25.6-32.2 grbz=747) MEAN CORPUSCULAR HEMOGLOBIN CONC (BEAKER) (test 30.0 GM/DL 32.2-35.5 mjhu=296) RED CELL DISTRIBUTION WIDTH (BEAKER) (test 14.6 % 11.7-14.4 rbbd=459) PLATELET COUNT (BEAKER) (test lkjg=615) 208 K/CU MM 150-450 MEAN PLATELET VOLUME (BEAKER) (test edpk=505) 12.6 fL 9.4-12.3 NUCLEATED RED BLOOD CELLS (BEAKER) (test 0 /100 WBC 0-0 srlc=495) NEUTROPHILS RELATIVE PERCENT (BEAKER) (test 67 % yubt=776) LYMPHOCYTES RELATIVE PERCENT (BEAKER) (test 20 % ntrk=734) MONOCYTES RELATIVE PERCENT (BEAKER) (test 10 % azwa=125) EOSINOPHILS RELATIVE PERCENT (BEAKER) (test 2 % cunz=967) BASOPHILS RELATIVE PERCENT (BEAKER) (test 0 % ijsm=215) NEUTROPHILS ABSOLUTE COUNT (BEAKER) (test 4.52 K/ L 1.56-6.13 kqlz=792) LYMPHOCYTES ABSOLUTE COUNT (BEAKER) (test 1.34 K/ L 1.18-3.74 ievq=482) MONOCYTES ABSOLUTE COUNT (BEAKER) (test 0.66 K/ L 0.24-0.36 szna=904) EOSINOPHILS ABSOLUTE COUNT (BEAKER) (test 0.13 K/ L 0.04-0.36 xixk=738) BASOPHILS ABSOLUTE COUNT (BEAKER) (test 0.03 K/ L 0.01-0.08 tnky=258) IMMATURE GRANULOCYTES-RELATIVE PERCENT (BEAKER) 1 % 0-1 (test gkpr=3019) URINALYSIS W/ REFLEX URINE [id number] 12:55:00 Test Item Value Reference Range Comments COLOR (BEAKER) (test jnzg=994) Yellow CLARITY (BEAKER) (test nvyf=820) Clear SPECIFIC GRAVITY UA (BEAKER) (test hwxs=681) 1.010 1.001-1.035 PH UA (BEAKER) (test aojt=154) 5.5 5.0-8.0 PROTEIN UA (BEAKER) (test qfoj=348) Negative Negative GLUCOSE UA (BEAKER) (test bslc=991) Negative Negative KETONES UA (BEAKER) (test kgkv=010) Negative Negative BILIRUBIN UA (BEAKER) (test lfef=885) Negative Negative BLOOD UA (BEAKER) (test qlbj=290) Negative Negative NITRITE UA (BEAKER) (test oduz=263) Negative Negative LEUKOCYTE ESTERASE UA (BEAKER) (test rpda=409) Negative Negative UROBILINOGEN UA (BEAKER) (test qpbr=209) 0.2 mg/dL 0.2-1.0 RBC UA (BEAKER) (test kqkp=635) < /HPF WBC UA (BEAKER) (test poxz=736) 1 /HPF MUCUS (BEAKER) (test tizr=6955) Rare SQUAMOUS EPITHELIAL (BEAKER) (test gssc=521) 1 /HPF HYALINE CASTS (BEAKER) (test hjmc=692) 2 /LPF SOURCE(BEAKER) (test qyhz=2571) [id number] 05:52:00 Test Item Value Reference Range Comments MAGNESIUM (BEAKER) (test fzow=653) 2.1 mg/dL 1.6-2.6 BASIC METABOLIC [id number] 05:52:00 Test Item Value Reference Range Comments SODIUM (BEAKER) (test 137 meq/L 136-145 iwlb=581) POTASSIUM (BEAKER) (test 3.5 meq/L 3.5-5.1 xrik=144) CHLORIDE (BEAKER) (test 98 meq/L 98-107 jvqb=912) CO2 (BEAKER) (test 28 meq/L 22-29 efvp=651) BLOOD UREA NITROGEN 15 mg/dL 7-21 (BEAKER) (test idoc=525) CREATININE (BEAKER) (test 1.03 mg/dL 0.57-1.25 ofok=924) GLUCOSE RANDOM (BEAKER) 97 mg/dL 70-105 (test ipbe=653) CALCIUM (BEAKER) (test 9.8 mg/dL 8.4-10.2 jeyw=103) EGFR (BEAKER) (test 53 mL/min/1.73 sq m ESTIMATED GFR IS NOT paam=6597) ACCURATE CREATININE CLEARANCE IN PREDICTING GLOMERULAR FILTRATION RATE. ESTIMATED GFR IS NOT APPLICABLE FOR DIALYSIS PATIENTS. CBC W/PLT COUNT & AUTO [id number] 05:33:00 Test Item Value Reference Range Comments WHITE BLOOD CELL COUNT (BEAKER) (test snck=883) 5.9 K/ L 3.5-10.5 RED BLOOD CELL COUNT (BEAKER) (test ufxn=510) 3.83 M/ L 3.93-5.22 HEMOGLOBIN (BEAKER) (test lidv=635) 10.2 GM/DL 11.2-15.7 HEMATOCRIT (BEAKER) (test hnqz=865) 33.5 % 34.1-44.9 MEAN CORPUSCULAR VOLUME (BEAKER) (test tvrt=588) 87.5 fL 79.4-94.8 MEAN CORPUSCULAR HEMOGLOBIN (BEAKER) (test 26.6 pg 25.6-32.2 ycdz=132) MEAN CORPUSCULAR HEMOGLOBIN CONC (BEAKER) (test 30.4 GM/DL 32.2-35.5 zumn=763) RED CELL DISTRIBUTION WIDTH (BEAKER) (test 14.6 % 11.7-14.4 zkvm=246) PLATELET COUNT (BEAKER) (test lhth=104) 182 K/CU MM 150-450 MEAN PLATELET VOLUME (BEAKER) (test eccv=178) 12.6 fL 9.4-12.3 NUCLEATED RED BLOOD CELLS (BEAKER) (test 0 /100 WBC 0-0 eaho=936) NEUTROPHILS RELATIVE PERCENT (BEAKER) (test 67 % dkjp=309) LYMPHOCYTES RELATIVE PERCENT (BEAKER) (test 20 % egzn=135) MONOCYTES RELATIVE PERCENT (BEAKER) (test 8 % kbbw=561) EOSINOPHILS RELATIVE PERCENT (BEAKER) (test 3 % lvbv=212) BASOPHILS RELATIVE PERCENT (BEAKER) (test 1 % kmcs=045) NEUTROPHILS ABSOLUTE COUNT (BEAKER) (test 3.99 K/ L 1.56-6.13 wsfc=742) LYMPHOCYTES ABSOLUTE COUNT (BEAKER) (test 1.20 K/ L 1.18-3.74 jtxl=483) MONOCYTES ABSOLUTE COUNT (BEAKER) (test 0.49 K/ L 0.24-0.36 bzbi=853) EOSINOPHILS ABSOLUTE COUNT (BEAKER) (test 0.15 K/ L 0.04-0.36 rfqp=826) BASOPHILS ABSOLUTE COUNT (BEAKER) (test 0.04 K/ L 0.01-0.08 wkoj=434) IMMATURE GRANULOCYTES-RELATIVE PERCENT (BEAKER) 1 % 0-1 (test gzoi=9914) VITAMIN B12 AND [id number] 06:37:00 Test Item Value Reference Range Comments VITAMIN B12 (BEAKER) (test ijiy=932) 460 pg/mL 213-816 FOLATE (BEAKER) (test puds=275) 4.2 ng/mL >=7.0 TSH/FREE T4 IF [id number] 06:22:00 Test Item Value Reference Range Comments THYROID STIMULATING HORMONE (BEAKER) (test 1.37 uIU/mL 0.35-4.94 xlbw=098) [id number] 06:16:00 Test Item Value Reference Range Comments PHOSPHORUS (BEAKER) (test wkap=497) 3.7 mg/dL 2.3-4.7 [id number] 06:16:00 Test Item Value Reference Range Comments MAGNESIUM (BEAKER) (test iozn=961) 1.9 mg/dL 1.6-2.6 BASIC METABOLIC [id number] 06:16:00 Test Item Value Reference Range Comments SODIUM (BEAKER) (test 135 meq/L 136-145 rqmr=092) POTASSIUM (BEAKER) (test 3.6 meq/L 3.5-5.1 uhgz=967) CHLORIDE (BEAKER) (test 100 meq/L 98-107 xdgq=675) CO2 (BEAKER) (test 25 meq/L 22-29 fcne=458) BLOOD UREA NITROGEN 16 mg/dL 7-21 (BEAKER) (test zoxf=278) CREATININE (BEAKER) (test 0.89 mg/dL 0.57-1.25 jmix=405) GLUCOSE RANDOM (BEAKER) 94 mg/dL 70-105 (test ypse=651) CALCIUM (BEAKER) (test 9.2 mg/dL 8.4-10.2 lndg=449) EGFR (BEAKER) (test 63 mL/min/1.73 sq m ESTIMATED GFR IS NOT ixjh=1262) ACCURATE CREATININE CLEARANCE IN PREDICTING GLOMERULAR FILTRATION RATE. ESTIMATED GFR IS NOT APPLICABLE FOR DIALYSIS PATIENTS. LIPID [id number] 06:16:00 Test Item Value Reference Range Comments TRIGLYCERIDES (BEAKER) (test tukc=716) 71 mg/dL CHOLESTEROL (BEAKER) (test bzvn=808) 135 mg/dL HDL CHOLESTEROL (BEAKER) (test gday=770) 47 mg/dL LDL CHOLESTEROL CALCULATED (BEAKER) (test 74 mg/dL npvj=884) Triglyceride Reference Range: Low Risk <150 Borderline 150- 199 High Risk 200-499 Very High Risk >=500Cholesterol Reference Range: Low Risk <200 Borderline 200-239 High Risk > 240HDL Cholesterol Reference Range: Low Risk >=60 High Risk <40LDL Cholesterol Reference Range: Optimal <100 Near Optimal 100-129 Borderline 130-159 High 160-189 Very High >=190C-REACTIVE [id number] 06:16:00 Test Item Value Reference Range Comments C-REACTIVE PROTEIN (BEAKER) (test hcsh=407) 7.42 mg/dL 0.00-0.50 CBC W/PLT COUNT & AUTO [id number] 05:44:00 Test Item Value Reference Range Comments WHITE BLOOD CELL COUNT (BEAKER) (test zwdw=810) 5.6 K/ L 3.5-10.5 RED BLOOD CELL COUNT (BEAKER) (test gthi=063) 3.35 M/ L 3.93-5.22 HEMOGLOBIN (BEAKER) (test mvhh=771) 9.0 GM/DL 11.2-15.7 HEMATOCRIT (BEAKER) (test busi=289) 29.6 % 34.1-44.9 MEAN CORPUSCULAR VOLUME (BEAKER) (test qkqp=070) 88.4 fL 79.4-94.8 MEAN CORPUSCULAR HEMOGLOBIN (BEAKER) (test 26.9 pg 25.6-32.2 soek=331) MEAN CORPUSCULAR HEMOGLOBIN CONC (BEAKER) (test 30.4 GM/DL 32.2-35.5 raqc=790) RED CELL DISTRIBUTION WIDTH (BEAKER) (test 14.6 % 11.7-14.4 rfcf=802) PLATELET COUNT (BEAKER) (test mhna=443) 163 K/CU MM 150-450 MEAN PLATELET VOLUME (BEAKER) (test yqro=349) 12.7 fL 9.4-12.3 NUCLEATED RED BLOOD CELLS (BEAKER) (test 0 /100 WBC 0-0 ucvw=255) NEUTROPHILS RELATIVE PERCENT (BEAKER) (test 67 % hkdq=217) LYMPHOCYTES RELATIVE PERCENT (BEAKER) (test 19 % tzal=417) MONOCYTES RELATIVE PERCENT (BEAKER) (test 10 % gdil=246) EOSINOPHILS RELATIVE PERCENT (BEAKER) (test 2 % nizm=727) BASOPHILS RELATIVE PERCENT (BEAKER) (test 1 % dgws=288) NEUTROPHILS ABSOLUTE COUNT (BEAKER) (test 3.72 K/ L 1.56-6.13 cvni=682) LYMPHOCYTES ABSOLUTE COUNT (BEAKER) (test 1.08 K/ L 1.18-3.74 yogh=097) MONOCYTES ABSOLUTE COUNT (BEAKER) (test 0.58 K/ L 0.24-0.36 xxif=519) EOSINOPHILS ABSOLUTE COUNT (BEAKER) (test 0.10 K/ L 0.04-0.36 vaxy=429) BASOPHILS ABSOLUTE COUNT (BEAKER) (test 0.03 K/ L 0.01-0.08 ajfu=381) IMMATURE GRANULOCYTES-RELATIVE PERCENT (BEAKER) 1 % 0-1 (test yzfk=2437) URINALYSIS W/ [id number] 20:50:00 Test Item Value Reference Range Comments COLOR (BEAKER) (test vxtt=464) Yellow CLARITY (BEAKER) (test dsci=316) Clear SPECIFIC GRAVITY UA (BEAKER) (test yrad=945) 1.015 1.001-1.035 PH UA (BEAKER) (test mbwv=421) 5.5 5.0-8.0 PROTEIN UA (BEAKER) (test ytjz=516) Negative Negative GLUCOSE UA (BEAKER) (test vvtk=548) Negative Negative KETONES UA (BEAKER) (test qttf=991) Negative Negative BILIRUBIN UA (BEAKER) (test sodw=943) Negative Negative BLOOD UA (BEAKER) (test vupe=072) Negative Negative NITRITE UA (BEAKER) (test tmsd=839) Negative Negative LEUKOCYTE ESTERASE UA (BEAKER) (test dmzg=436) Large Negative UROBILINOGEN UA (BEAKER) (test tpcu=757) 0.2 mg/dL 0.2-1.0 RBC UA (BEAKER) (test deeo=575) 2 /HPF WBC UA (BEAKER) (test sock=634) 46 /HPF BACTERIA (BEAKER) (test wdht=437) Rare MUCUS (BEAKER) (test uhrs=9546) Occasional SQUAMOUS EPITHELIAL (BEAKER) (test bawe=024) 4 /HPF HYALINE CASTS (BEAKER) (test ggmt=196) 4 /LPF SOURCE(BEAKER) (test jsbv=2649) Urine, Voided MR, BRAIN, WITHOUT [id number] 19:27:00Reason for exam:->Ischemic Stroke EvaluationFINAL REPORT Exam: [...] MDReport Verified Date/Time: 02/07/2018 19:27:07 Reading Location: [address] Transitional Reading Room MR, MRA, BRAIN, WITHOUT [id number] 19:25:00Reason for exam:->Ischemic Stroke EvaluationFINAL REPORT MRA head and neck without contrast. CLINICAL HISTORY: Stroke. Ischemic stroke evaluation.. COMPARISON: None. TECHNIQUE: Two- and three-dimensional rsvy-lk-kmzgfm MRA images of the intra- and extracranial [...] Shane Rodriguezort Verified Date/Time:02/07/2018 19:25:57 Reading Location: [address] Transitional Reading Room MR, MRA, NECK, WITHOUT IV [id number] 19:25:00Reason for exam:->Ischemic Stroke EvaluationFINAL REPORT MRA head and neck without contrast. CLINICAL HISTORY: Stroke. Ischemic stroke evaluation.. COMPARISON: None. TECHNIQUE: Two- and three-dimensional esee-ol-swhdht MRA images of the intra- and extracranial [...] Shane Rodriguez Verified Date/Time:02/07/2018 19:25:57 Reading Location: [address] Reading Room HEMOGLOBIN [id number] 12:15:00 Test Item Value Reference Range Comments HEMOGLOBIN A1C (BEAKER) (test jzlb=863) 6.0 % 4.3-6.1 TSH/FREE T4 IF [id number] 12:13:00 Test Item Value Reference Range Comments THYROID STIMULATING HORMONE (BEAKER) (test 1.43 uIU/mL 0.35-4.94 lkld=644) LIPID [id number] 08:53:00 Test Item Value Reference Range Comments TRIGLYCERIDES (BEAKER) (test tztw=891) 67 mg/dL CHOLESTEROL (BEAKER) (test yfof=730) 142 mg/dL HDL CHOLESTEROL (BEAKER) (test lahu=046) 48 mg/dL LDL CHOLESTEROL CALCULATED (BEAKER) (test 81 mg/dL pxhg=690) Triglyceride Reference Range: Low Risk <150 Borderline 150- 199 High Risk 200-499 Very High Risk >=500Cholesterol Reference Range: Low Risk <200 Borderline 200-239 High Risk > 240HDL Cholesterol Reference Range: Low Risk >=60 High Risk <40LDL Cholesterol Reference Range: Optimal <100 Near Optimal 100-129 Borderline 130-159 High 160-189 Very High >=190BASIC METABOLIC [id number] 08:53:00 Test Item Value Reference Range Comments SODIUM (BEAKER) (test 135 meq/L 136-145 isde=528) POTASSIUM (BEAKER) (test 3.6 meq/L 3.5-5.1 lqxq=072) CHLORIDE (BEAKER) (test 101 meq/L 98-107 idmw=335) CO2 (BEAKER) (test 25 meq/L 22-29 oqwl=401) BLOOD UREA NITROGEN 15 mg/dL 7-21 (BEAKER) (test vlnz=290) CREATININE (BEAKER) (test 0.86 mg/dL 0.57-1.25 ggkm=255) GLUCOSE RANDOM (BEAKER) 96 mg/dL 70-105 (test mzjc=076) CALCIUM (BEAKER) (test 9.2 mg/dL 8.4-10.2 cegr=405) EGFR (BEAKER) (test 65 mL/min/1.73 sq m ESTIMATED GFR IS NOT epef=1742) ACCURATE CREATININE CLEARANCE IN PREDICTING GLOMERULAR FILTRATION RATE. ESTIMATED GFR IS NOT APPLICABLE FOR DIALYSIS PATIENTS. CBC W/PLT COUNT & AUTO [id number] 08:43:00 Test Item Value Reference Range Comments WHITE BLOOD CELL COUNT (BEAKER) (test tnyw=029) 5.8 K/ L 3.5-10.5 RED BLOOD CELL COUNT (BEAKER) (test dahq=402) 3.43 M/ L 3.93-5.22 HEMOGLOBIN (BEAKER) (test mpwe=542) 9.4 GM/DL 11.2-15.7 HEMATOCRIT (BEAKER) (test dybb=415) 30.0 % 34.1-44.9 MEAN CORPUSCULAR VOLUME (BEAKER) (test xcpn=460) 87.5 fL 79.4-94.8 MEAN CORPUSCULAR HEMOGLOBIN (BEAKER) (test 27.4 pg 25.6-32.2 qanw=731) MEAN CORPUSCULAR HEMOGLOBIN CONC (BEAKER) (test 31.3 GM/DL 32.2-35.5 yhae=380) RED CELL DISTRIBUTION WIDTH (BEAKER) (test 14.8 % 11.7-14.4 zqai=649) PLATELET COUNT (BEAKER) (test gspq=610) 166 K/CU MM 150-450 MEAN PLATELET VOLUME (BEAKER) (test zkiu=218) 12.5 fL 9.4-12.3 NUCLEATED RED BLOOD CELLS (BEAKER) (test 0 /100 WBC 0-0 zyaf=937) NEUTROPHILS RELATIVE PERCENT (BEAKER) (test 65 % gwpm=804) LYMPHOCYTES RELATIVE PERCENT (BEAKER) (test 19 % ycmu=260) MONOCYTES RELATIVE PERCENT (BEAKER) (test 12 % mnlg=220) EOSINOPHILS RELATIVE PERCENT (BEAKER) (test 2 % saly=892) BASOPHILS RELATIVE PERCENT (BEAKER) (test 1 % oflc=339) NEUTROPHILS ABSOLUTE COUNT (BEAKER) (test 3.77 K/ L 1.56-6.13 unte=640) LYMPHOCYTES ABSOLUTE COUNT (BEAKER) (test 1.10 K/ L 1.18-3.74 teun=455) MONOCYTES ABSOLUTE COUNT (BEAKER) (test 0.72 K/ L 0.24-0.36 vstm=839) EOSINOPHILS ABSOLUTE COUNT (BEAKER) (test 0.12 K/ L 0.04-0.36 txzb=992) BASOPHILS ABSOLUTE COUNT (BEAKER) (test 0.03 K/ L 0.01-0.08 vyyz=656) IMMATURE GRANULOCYTES-RELATIVE PERCENT (BEAKER) 1 % 0-1 (test yaxt=7664) TISSUE [id number] 14:20:00Surgical Pathology Report Case: [id number] Authorizing Provider: Carlos Seo MD Collected: 10/21/2017 0837 Ordering Location: [facility] Received: 10/21/2017 0931 PERIOPERATIVE SERVICES Pathologist: Gilbert Anderson MD Specimen: Carotid, Right, RIGHT CAROTID PLAQUE ARTERY, RIGHT CAROTID, ENDARTERECTOMY:CALCIFIC ATHEROSCLEROTIC PLAQUE Signing Pathologist Direct Phone Line: [phone] signed by Gilbert Anderson MD on 2017 at 2:20 [id number]; [id number] stenosisRight carotid plaqueIn saline labeled "carotid, right", description "right carotid plaque" is a 3.5 cm in length x 0.9 cm in diameter michel-white to yellow-ang cylindrical previously incised portion of fibrous tissue. Sectioning reveals focal calcification. Crosscutter Rolled Glass sections are submitted in cassette A1 for decalcification. DB/ [id number] 05:30:00 Test Item Value Reference Range Comments MAGNESIUM (BEAKER) (test kfgr=558) 1.7 mg/dL 1.6-2.6 [facility]Call [facility] resultsBASIC METABOLIC [id number] 05:30: 00 Test Item Value Reference Range Comments SODIUM (BEAKER) (test 138 meq/L 136-145 ddxm=419) POTASSIUM (BEAKER) (test 3.7 meq/L 3.5-5.1 czjg=848) CHLORIDE (BEAKER) (test 103 meq/L 98-107 zvdp=133) CO2 (BEAKER) (test 28 meq/L 22-29 fgcz=462) BLOOD UREA NITROGEN 11 mg/dL 7-21 (BEAKER) (test udhf=415) CREATININE (BEAKER) (test 0.95 mg/dL 0.57-1.25 alkv=941) GLUCOSE RANDOM (BEAKER) 89 mg/dL 70-105 (test mepx=159) CALCIUM (BEAKER) (test 9.0 mg/dL 8.4-10.2 rzyy=873) EGFR (BEAKER) (test 58 mL/min/1.73 sq m ESTIMATED GFR IS NOT budp=6985) ACCURATE CREATININE CLEARANCE IN PREDICTING GLOMERULAR FILTRATION RATE. ESTIMATED GFR IS NOT APPLICABLE FOR DIALYSIS PATIENTS. [facility]Call [facility] with resultsCBC W/PLT COUNT & AUTO [id number] 04:49:00 Test Item Value Reference Range Comments WHITE BLOOD CELL COUNT (BEAKER) (test dnob=446) 5.6 K/ L 3.5-10.5 RED BLOOD CELL COUNT (BEAKER) (test zlfo=808) 3.59 M/ L 3.93-5.22 HEMOGLOBIN (BEAKER) (test begq=262) 10.1 GM/DL 11.2-15.7 HEMATOCRIT (BEAKER) (test hltv=883) 32.8 % 34.1-44.9 MEAN CORPUSCULAR VOLUME (BEAKER) (test gdny=491) 91.4 fL 79.4-94.8 MEAN CORPUSCULAR HEMOGLOBIN (BEAKER) (test 28.1 pg 25.6-32.2 phus=786) MEAN CORPUSCULAR HEMOGLOBIN CONC (BEAKER) (test 30.8 GM/DL 32.2-35.5 cxyj=913) RED CELL DISTRIBUTION WIDTH (BEAKER) (test 15.2 % 11.7-14.4 idmj=679) PLATELET COUNT (BEAKER) (test ywft=922) 113 K/CU MM 150-450 MEAN PLATELET VOLUME (BEAKER) (test cxxp=923) 13.5 fL 9.4-12.3 NUCLEATED RED BLOOD CELLS (BEAKER) (test 0 /100 WBC 0-0 jolr=052) NEUTROPHILS RELATIVE PERCENT (BEAKER) (test 63 % cizw=391) LYMPHOCYTES RELATIVE PERCENT (BEAKER) (test 23 % hals=751) MONOCYTES RELATIVE PERCENT (BEAKER) (test 9 % tdya=827) EOSINOPHILS RELATIVE PERCENT (BEAKER) (test 4 % zyei=876) BASOPHILS RELATIVE PERCENT (BEAKER) (test 1 % yzse=710) NEUTROPHILS ABSOLUTE COUNT (BEAKER) (test 3.50 K/ L 1.56-6.13 xeon=760) LYMPHOCYTES ABSOLUTE COUNT (BEAKER) (test 1.29 K/ L 1.18-3.74 ussb=254) MONOCYTES ABSOLUTE COUNT (BEAKER) (test 0.52 K/ L 0.24-0.36 jmnk=125) EOSINOPHILS ABSOLUTE COUNT (BEAKER) (test 0.23 K/ L 0.04-0.36 dydj=802) BASOPHILS ABSOLUTE COUNT (BEAKER) (test 0.03 K/ L 0.01-0.08 prfu=247) IMMATURE GRANULOCYTES-RELATIVE PERCENT (BEAKER) 0 % 0-1 (test ahip=9641) BASIC METABOLIC [id number] 05:38:00 Test Item Value Reference Range Comments SODIUM (BEAKER) (test 138 meq/L 136-145 jvje=679) POTASSIUM (BEAKER) (test 3.7 meq/L 3.5-5.1 kzhz=288) CHLORIDE (BEAKER) (test 107 meq/L 98-107 grio=001) CO2 (BEAKER) (test 25 meq/L 22-29 wahs=374) BLOOD UREA NITROGEN 14 mg/dL 7-21 (BEAKER) (test kflu=941) CREATININE (BEAKER) (test 0.76 mg/dL 0.57-1.25 wpza=802) GLUCOSE RANDOM (BEAKER) 88 mg/dL 70-105 (test qsdi=745) CALCIUM (BEAKER) (test 8.5 mg/dL 8.4-10.2 ctqz=266) EGFR (BEAKER) (test 75 mL/min/1.73 sq m ESTIMATED GFR IS NOT ofua=7717) ACCURATE CREATININE CLEARANCE IN PREDICTING GLOMERULAR FILTRATION RATE. ESTIMATED GFR IS NOT APPLICABLE FOR DIALYSIS PATIENTS. CBC W/PLT COUNT & AUTO [id number] 05:13:00 Test Item Value Reference Range Comments WHITE BLOOD CELL COUNT (BEAKER) (test gsmd=864) 3.8 K/ L 3.5-10.5 RED BLOOD CELL COUNT (BEAKER) (test iieu=171) 3.40 M/ L 3.93-5.22 HEMOGLOBIN (BEAKER) (test bhgo=659) 9.6 GM/DL 11.2-15.7 HEMATOCRIT (BEAKER) (test kqmr=831) 31.3 % 34.1-44.9 MEAN CORPUSCULAR VOLUME (BEAKER) (test eylu=134) 92.1 fL 79.4-94.8 MEAN CORPUSCULAR HEMOGLOBIN (BEAKER) (test 28.2 pg 25.6-32.2 mzpc=549) MEAN CORPUSCULAR HEMOGLOBIN CONC (BEAKER) (test 30.7 GM/DL 32.2-35.5 dksx=799) RED CELL DISTRIBUTION WIDTH (BEAKER) (test 15.4 % 11.7-14.4 blgi=444) PLATELET COUNT (BEAKER) (test wjbx=706) 91 K/CU MM 150-450 MEAN PLATELET VOLUME (BEAKER) (test lyjy=125) 13.6 fL 9.4-12.3 NUCLEATED RED BLOOD CELLS (BEAKER) (test 0 /100 WBC 0-0 rquw=953) NEUTROPHILS RELATIVE PERCENT (BEAKER) (test 64 % ukuv=293) LYMPHOCYTES RELATIVE PERCENT (BEAKER) (test 23 % zuix=203) MONOCYTES RELATIVE PERCENT (BEAKER) (test 8 % woay=346) EOSINOPHILS RELATIVE PERCENT (BEAKER) (test 4 % qajm=847) BASOPHILS RELATIVE PERCENT (BEAKER) (test 0 % grey=528) NEUTROPHILS ABSOLUTE COUNT (BEAKER) (test 2.45 K/ L 1.56-6.13 trep=484) LYMPHOCYTES ABSOLUTE COUNT (BEAKER) (test 0.89 K/ L 1.18-3.74 hceo=275) MONOCYTES ABSOLUTE COUNT (BEAKER) (test bjma=292) 0.30 K/ L 0.24-0.36 EOSINOPHILS ABSOLUTE COUNT (BEAKER) (test 0.14 K/ L 0.04-0.36 msbz=488) BASOPHILS ABSOLUTE COUNT (BEAKER) (test haap=196) 0.01 K/ L 0.01-0.08 IMMATURE GRANULOCYTES-RELATIVE PERCENT (BEAKER) 1 % 0-1 (test ikna=9338) GLUCOSE-STAT [id number] 09:53:00 Test Item Value Reference Range Comments GLUCOSE RANDOM (BEAKER) (test qyzx=482) 105 mg/dL 70-110 HGB/HCT (H&H) - STAT [id number] 09:53:00 Test Item Value Reference Range Comments HEMOGLOBIN (BEAKER) (test rljl=027) 11.2 g/dL 12.0-15.0 HEMATOCRIT (BEAKER) (test qcru=312) 33.0 % 36.0-45.0 BASIC METABOLIC [id number] 07:45:00 Test Item Value Reference Range Comments SODIUM (BEAKER) (test 136 meq/L 136-145 fjns=672) POTASSIUM (BEAKER) (test 3.5 meq/L 3.5-5.1 zeos=717) CHLORIDE (BEAKER) (test 107 meq/L 98-107 iugi=872) CO2 (BEAKER) (test 21 meq/L 22-29 gbfp=248) BLOOD UREA NITROGEN 17 mg/dL 7-21 (BEAKER) (test yokj=304) CREATININE (BEAKER) (test 0.78 mg/dL 0.57-1.25 xkbk=386) GLUCOSE RANDOM (BEAKER) 93 mg/dL 70-105 (test iwob=042) CALCIUM (BEAKER) (test 9.6 mg/dL 8.4-10.2 njbh=515) EGFR (BEAKER) (test 73 mL/min/1.73 sq m ESTIMATED GFR IS NOT vedy=2660) ACCURATE CREATININE CLEARANCE IN PREDICTING GLOMERULAR FILTRATION RATE. ESTIMATED GFR IS NOT APPLICABLE FOR DIALYSIS PATIENTS. RAD, CHEST, 1 VIEW, NON [id number] 07:29:00Reason for exam:-> baselineReason for exam:->pre opShould [...] MDReport Verified Date/Time: 10/21/2017 07:29:40 Reading Location: [facility] Radiology Reading Room PROTHROMBIN [id number] 07:23:00 Test Item Value Reference Range Comments PROTIME (BEAKER) (test nefz=631) 13.5 seconds 11.7-14.7 INR (BEAKER) (test ywwz=058) 1.0 <=5.9 RECOMMENDED COUMADIN/WARFARIN INR THERAPY RANGESSTANDARD DOSE: 2.0 - 3.0 Includes: PROPHYLAXIS forvenous thrombosis, systemic embolization; TREATMENT for venous thrombosis and/or pulmonary embolus.HIGH RISK: Target INR is 2.5-3.5 for patients with mechanical heart valves.CBC W/PLT COUNT & AUTO [id number] 10:12:00 Test Item Value Reference Range Comments WHITE BLOOD CELL COUNT (BEAKER) (test izwm=997) 5.4 K/ L 3.5-10.5 RED BLOOD CELL COUNT (BEAKER) (test dirc=598) 4.39 M/ L 3.93-5.22 HEMOGLOBIN (BEAKER) (test zkji=985) 12.2 GM/DL 11.2-15.7 HEMATOCRIT (BEAKER) (test urrz=336) 39.1 % 34.1-44.9 MEAN CORPUSCULAR VOLUME (BEAKER) (test htex=471) 89.1 fL 79.4-94.8 MEAN CORPUSCULAR HEMOGLOBIN (BEAKER) (test 27.8 pg 25.6-32.2 tyds=673) MEAN CORPUSCULAR HEMOGLOBIN CONC (BEAKER) (test 31.2 GM/DL 32.2-35.5 rmqy=762) RED CELL DISTRIBUTION WIDTH (BEAKER) (test 14.7 % 11.7-14.4 bxyw=347) PLATELET COUNT (BEAKER) (test igmh=110) 151 K/CU MM 150-450 MEAN PLATELET VOLUME (BEAKER) (test oelc=129) 13.0 fL 9.4-12.3 NUCLEATED RED BLOOD CELLS (BEAKER) (test 0 /100 WBC 0-0 bfqf=451) NEUTROPHILS RELATIVE PERCENT (BEAKER) (test 72 % nzzh=745) LYMPHOCYTES RELATIVE PERCENT (BEAKER) (test 18 % zxpb=983) MONOCYTES RELATIVE PERCENT (BEAKER) (test 7 % sfcg=920) EOSINOPHILS RELATIVE PERCENT (BEAKER) (test 2 % xhno=562) BASOPHILS RELATIVE PERCENT (BEAKER) (test 1 % vfae=440) NEUTROPHILS ABSOLUTE COUNT (BEAKER) (test 3.89 K/ L 1.56-6.13 hkzn=850) LYMPHOCYTES ABSOLUTE COUNT (BEAKER) (test 0.99 K/ L 1.18-3.74 ajza=697) MONOCYTES ABSOLUTE COUNT (BEAKER) (test 0.37 K/ L 0.24-0.36 ozhz=887) EOSINOPHILS ABSOLUTE COUNT (BEAKER) (test 0.08 K/ L 0.04-0.36 awap=029) BASOPHILS ABSOLUTE COUNT (BEAKER) (test 0.03 K/ L 0.01-0.08 hjbe=946) IMMATURE GRANULOCYTES-RELATIVE PERCENT (BEAKER) 1 % 0-1 (test sfii=1363)
--- OUTSIDE RECORDS SUMMARY | 2019-08-02 16:02 | XMS REPORT ---
:1945 Author Organization [employer] Care Team Providers Name Role Phone Pinto, Na Provider Role Unavailable Allergies, Adverse Reactions, Alerts Substance Reaction Event Type MORPHINE Info Not Available Drug Allergy Phenergan Info Not Available Drug Allergy Problems Problem Type Condition Code Onset Dates Condition Status Problem Tinnitus of right ear H93.11 Active Problem Osteoarthritis of multiple joints M15.9 Active Problem Migraine without status G43.909 Active migrainosus, not intractable, unspecified migraine type Problem Unsteady gait R26.81 Active Assessment Sore throat J02.9 Active Problem History of stroke associated with Z86.73 Active blood clotting tendency Assessment Seasonal allergic rhinitis, J30.2 Active unspecified trigger Problem Seasonal allergic rhinitis, J30.2 Active unspecified trigger Problem 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 Problem Varicose veins I86.8 Active Problem Medication monitoring encounter Z51.81 Active Problem Depression with anxiety F41.8 Active Assessment Acute bronchitis, unspecified J20.9 Active organism Assessment Other specified bacterial agents as B96.89 Active the cause of diseases classified elsewhere Assessment Acute sinusitis, unspecified J01.90 Active Problem Vitamin D deficiency E55.9 Active Problem Benign essential HTN I10 Active Problem Atrial fibrillation I48.91 Active Problem Allergic rhinitis J30.9 Active Problem Osteoporosis M81.0 Active Problem Hyperlipidemia E78.5 Active Medications Medication Code Code Instructions Start End Status Dosage System Date Date Flonase [facility] 11211498117 50 MCG/ACT Mar 28, Active 2 spray Nasally Once a 2019 in each day nostril Cetirizine HCl [facility] 74499401524 10 MG Orally Mar 28, Active 1 tablet Once a day 2019 Lasix [facility] 42788729871 40 MG Orally Active 1 tablet Once a day Lipitor [facility] 89053343463 40 MG Orally Active 1 tablet Once a day Atorvastatin [facility] [address]-27 Active not Calcium defined Eliquis [facility] [address]-25 Active not defined Bactrim DS [facility] 31505798391 800-160 MG Mar 28Apr Active 1 tablet Orally Twice a 2018 Folic Acid [facility] [address]-49 Active not defined Tramadol HCl [facility] 31759522361 50 MG Orally Active 1 tablet every 6 hrs as needed Nitroglycerin [facility] 57510693241 0.4 MG Active not Sublingual defined Results No Known Results Summary Purpose [employer] Submission
[2019-08-02 17:19] LABS: Absolute Lymphocytes (CBC) 1.3 K/uL (0.7-4.9); Basophils % 1.2 % (0-1.3); Lymphocytes % 27.5 % (15.3-44.8); MPV 10.8 fL (7.6-11.3); RBC Red Blood Cell Count 3.37 M/uL (3.86-4.86)
[2019-08-02 17:24] LABS: Protime INR 1.04
[2019-08-02 17:32] LABS: Potassium 3.6 mmol/L (3.5-5.1)
[2019-08-02 17:42] LABS: Hematocrit 25.1 % (36.0-45.0)
[2019-08-02] MEDS ORDERED: NA CHLORIDE 0.9% 100 ML IV ONE (18:38)
[2019-08-02] MEDS ORDERED: ACETAMINOPHEN 325 MG TABLET ONE (20:43)
--- NOTE | 2019-08-02 22:06 | ER ---
Nurse's Notes [facility] Name: Jenniffer Harden Age: 73 yrs Sex: Female : 1945 Arrival Date: 08/02/2019 Time: 15:59 Bed 15 Private MD: Kasey Pinto Diagnosis: Anemia in chronic diseases classified elsewhere Presentation: 08/02 16:10 Presenting complaint: Patient states: "I just went to the doctor and they said that my aj1 blood count was low so he told me to come here to have a transfusion" Patient reports rectal bleeding, but reports that she has had this bleeding since she started taking blood thinners and she just takes the blood thinners until she needs a transfusion, they she comes in. Transition of care: patient was not received from another setting of care. Onset of symptoms was August 02, 2019. Risk Assessment: Do you want to hurt yourself or someone else? Patient reports no desire to harm self or others. Initial Sepsis Screen: Does the patient meet any 2 criteria? No. Patient's initial sepsis screen is negative. Does the patient have a suspected source of infection? No. Patient's initial sepsis screen is negative. Care prior to arrival: None. 16:10 Method Of Arrival: Wheelchair aj1 16:10 Acuity: RUTHIE 3 aj1 Triage Assessment: 16:13 General: Appears in no apparent distress. comfortable, Behavior is calm, cooperative, aj1 appropriate for age. Pain: Denies pain. Neuro: Level of Consciousness is awake, alert, obeys commands. Cardiovascular: Patient's skin is warm and dry. Respiratory: Airway is patent Respiratory effort is even, unlabored, Respiratory pattern is regular, symmetrical. Historical: - Allergies: 16:13 Morphine; aj1 16:13 PENICILLINS; aj1 16:13 Phenergan; aj1 - Home Meds: 16:13 atorvastatin 40 mg Oral tab 1 tab once daily [Active]; Eliquis Oral [Active]; Avapro aj1 Oral [Active]; enalapril maleate 5 mg Oral tab 1 tab once daily [Active]; furosemide 40 mg Oral tab 1 tab once daily [Active]; Lipitor Oral [Active]; metoprolol tartrate 25 mg Oral tab 1 tab once daily [Active]; - PMHx: 16:13 Arthritis; Atrial Fib; Hypertension; mitral valve prolapse; Myocardial infarction; aj1 Osteoporosis; - Immunization history:: Flu vaccine is up to date. - Social history:: Smoking status: Patient/guardian denies using tobacco. - Ebola Screening: : Patient denies travel to an Ebola-affected area in the 21 days before illness onset. - Family history:: not pertinent. - Hospitalizations: : No recent hospitalization is reported. Screenin:00 Abuse screen: Denies threats or abuse. Nutritional screening: No deficits noted. em Tuberculosis screening: No symptoms or risk factors identified. Fall Risk None identified. Assessment: 17:20 General: Appears in no apparent distress. comfortable, Behavior is calm, cooperative, em appropriate for age, Reports. Pain: Denies pain. Neuro: Level of Consciousness is awake, alert, obeys commands, Oriented to person, place, time, situation. Cardiovascular: Denies chest pain, Capillary refill < 3 seconds Patient's skin is warm and dry. Respiratory: Airway is patent Respiratory effort is even, unlabored, Respiratory pattern is regular, symmetrical, Denies shortness of breath at rest. Derm: Skin is intact, is healthy with good turgor, Skin is pink, warm \\T\\ dry. Musculoskeletal: Capillary refill < 3 seconds, Range of motion: intact in all extremities. 18:20 Reassessment: Patient appears in no apparent distress at this time. Patient and/or em family updated on plan of care and expected duration. Pain level reassessed. Patient is alert, oriented x 3, equal unlabored respirations, skin warm/dry/pink. 19:17 General: Appears in no apparent distress. comfortable, Behavior is calm, cooperative, jd3 appropriate for age, Reports being sent by PCP to get a blood transfusion for low hemoglobin. Pain: Denies pain. Neuro: Level of Consciousness is awake, alert, obeys commands, Oriented to person, place, time, situation. Cardiovascular: Denies chest pain, Capillary refill < 3 seconds Patient's skin is warm and dry. Respiratory: Airway is patent Respiratory effort is even, unlabored, Respiratory pattern is regular, symmetrical, Denies cough, shortness of breath. GI: No signs and/or symptoms were reported involving the gastrointestinal system. : No signs and/or symptoms were reported regarding the genitourinary system. EENT: No signs and/or symptoms were reported regarding the EENT system. Derm: Skin is intact, Skin is dry, Skin is normal, Skin temperature is warm. Musculoskeletal: Circulation, motion, and sensation intact. Range of motion: intact in all extremities. 20:45 Reassessment: blood transfusion complete awaiting H\\T\\H redraw post blood transfusion. jd3 20:47 Reassessment: Patient appears in no apparent distress at this time. Patient and/or jd3 family updated on plan of care and expected duration. Pain level reassessed. Patient is alert, oriented x 3, equal unlabored respirations, skin warm/dry/pink. reporting headache, provider notified. 22:32 Reassessment: Patient appears in no apparent distress at this time. Patient and/or jd3 family updated on plan of care and expected duration. Pain level reassessed. Patient is alert, oriented x 3, equal unlabored respirations, skin warm/dry/pink. Patient states feeling better. Vital Signs: 16:13 BP 146 / 74; Pulse 71; Resp 18; Temp 97.5; Pulse Ox 100% on R/A; Weight 77.11 kg (R); aj1 Height 5 ft. 2 in. (157.48 cm) (R); Pain 0/10; 17:26 BP 101 / 70; Pulse 75; Resp 16; Pulse Ox 99% on R/A; Pain 0/10; em 19:21 BP 133 / 74; Pulse 79; Resp 17 S; Pulse Ox 98% on R/A; jd3 20:47 BP 157 / 71; Pulse 80; Resp 19 S; Pulse Ox 98% on R/A; jd3 22:32 BP 151 / 85; Pulse 82; Resp 17 S; Pulse Ox 97% on R/A; jd3 16:13 Body Mass Index 31.09 (77.11 kg, 157.48 cm) aj1 ED Course: 15:59 Patient arrived in ED. rg4 16:00 Kasey Pinto MD is Private Physician. rg4 16:12 Triage completed. aj1 16:13 Arm band placed on Patient placed in an exam room. aj1 16:14 Jimbo Sharif LVN is Primary Nurse. em 16:28 Balta Olivarez MD is Attending Physician. rn 17:00 Patient has correct armband on for positive identification. Placed in gown. Bed in low em position. Call light in reach. Side rails up X2. Adult w/ patient. monitor tech on. Pulse ox on. NIBP on. 17:25 Initial lab(s) drawn, by me, sent to lab. Inserted saline lock: 22 gauge in left em antecubital area, using aseptic technique. Blood collected. 19:16 Primary Nurse role handed off by Jimbo Sharif LVN jd3 19:16 Harman Vila, INOCENCIO is Primary Nurse. jd3 21:44 [facility]-C [facility]. snw 22:04 Umesh Ulloa MD is Referral Physician. snw 22:33 No provider procedures requiring assistance completed. IV discontinued, intact, jd3 bleeding controlled, No redness/swelling at site. Pressure dressing applied. Administered Medications: 20:49 Drug: Tylenol 325 mg Route: PO; jd3 21:49 Follow up: Response: No adverse reaction jd3 22:15 Drug: Cyanocobalamin 1000 mcg Route: IM; Site: right deltoid; jd3 22:31 Follow up: Response: No adverse reaction jd3 Outcome: 22:05 Discharge ordered by . snw 22:33 Discharged to home ambulatory. jd3 22:33 Condition: stable 22:33 Discharge instructions given to patient, Instructed on discharge instructions, follow up and referral plans. Demonstrated understanding of instructions, follow-up care. 22:34 Patient left the ED. jd3 Signatures: Bess Randhawa RN RN aj1 Mai Bains FNP-C FACTORY HELPER-CsnJimbo Figueroa RN RN Balta Olivarez MD MD rn Garcia, Rubi rg4 Harman Vila RN RN jd3 Corrections: (The following items were deleted from the chart) 22:31 22:30 Cyanocobalamin 1000 mcg IM in right deltoid jd3 jd3
--- NOTE | 2019-08-02 22:06 | EDPHYS ---
Physician Documentation [facility] Name: Jenniffer Harden Age: 73 yrs Sex: Female : 1945 Arrival Date: 08/02/2019 Time: 15:59 Bed 15 Private MD: Kasey Pinto ED Physician Balta Olivarez HPI: 08/02 17:03 This 73 yrs old Female presents to ER via Wheelchair with complaints of Blood rn Transfusion. 17:03 The patient presents to the emergency department with rectal bleeding, a small amount, rn bright red blood with bowel movement, with multiple such episodes. Onset: The symptoms/episode began/occurred at an unknown time. Abdominal pain: none is appreciated. Modifying factors: The symptoms are alleviated by nothing, the symptoms are aggravated by nothing. Severity of symptoms: At their worst the symptoms were mild in the emergency department the symptoms are unchanged. The patient has experienced similar episodes in the past, chronically. Reports sent by Dr. Ulloa for blood transfusion, has been on blood thinners for afib for some time, has chronic bleeding from internal hemorrhoids that require blood transfusion in past, reports generalized fatigue and weakness, no syncope/chest pain/sob. Sent for 1 unit blood transfusion. Has had colonoscopy, told internal hemorrhoids, and continue to bleed. Does not want to be admitted or transferred. . Historical: - Allergies: 16:13 Morphine; aj1 16:13 PENICILLINS; aj1 16:13 Phenergan; aj1 - Home Meds: 16:13 atorvastatin 40 mg Oral tab 1 tab once daily [Active]; Eliquis Oral [Active]; Avapro aj1 Oral [Active]; enalapril maleate 5 mg Oral tab 1 tab once daily [Active]; furosemide 40 mg Oral tab 1 tab once daily [Active]; Lipitor Oral [Active]; metoprolol tartrate 25 mg Oral tab 1 tab once daily [Active]; - PMHx: 16:13 Arthritis; Atrial Fib; Hypertension; mitral valve prolapse; Myocardial infarction; aj1 Osteoporosis; - Immunization history:: Flu vaccine is up to date. - Social history:: Smoking status: Patient/guardian denies using tobacco. - Ebola Screening: : Patient denies travel to an Ebola-affected area in the 21 days before illness onset. - Family history:: not pertinent. - Hospitalizations: : No recent hospitalization is reported. ROS: 17:15 Constitutional: Negative for fever, chills, and weight loss, Eyes: Negative for injury, rn pain, redness, and discharge, Neck: Negative for injury, pain, and swelling, Cardiovascular: Negative for chest pain, palpitations, and edema, Respiratory: Negative for shortness of breath, cough, wheezing, and pleuritic chest pain, Abdomen/GI: + mild rectal bleeding MS/Extremity: Negative for injury and deformity, Skin: Negative for injury, rash, and discoloration, Neuro: Negative for headache, numbness, tingling, and seizure. Exam: 17:15 Constitutional: This is a well developed, well nourished patient who is awake, alert, rn and in no acute distress. Head/Face: Normocephalic, atraumatic. Cardiovascular: Regular rate and rhythm. No pulse deficits. Respiratory: No increased work of breathing, no retractions or nasal flaring. Abdomen/GI: soft, non-tender Skin: Warm, dry MS/ Extremity: Pulses equal, no cyanosis. Neurovascular intact. Full, normal range of motion. Equal circumference. Neuro: Awake and alert, GCS 15, oriented to person, place, time, and situation. Cranial nerves II-XII grossly intact. Motor strength 5/5 in all extremities. Sensory grossly intact. Vital Signs: 16:13 BP 146 / 74; Pulse 71; Resp 18; Temp 97.5; Pulse Ox 100% on R/A; Weight 77.11 kg (R); aj1 Height 5 ft. 2 in. (157.48 cm) (R); Pain 0/10; 17:26 BP 101 / 70; Pulse 75; Resp 16; Pulse Ox 99% on R/A; Pain 0/10; em 19:21 BP 133 / 74; Pulse 79; Resp 17 S; Pulse Ox 98% on R/A; jd3 20:47 BP 157 / 71; Pulse 80; Resp 19 S; Pulse Ox 98% on R/A; jd3 22:32 BP 151 / 85; Pulse 82; Resp 17 S; Pulse Ox 97% on R/A; jd3 16:13 Body Mass Index 31.09 (77.11 kg, 157.48 cm) aj1 MDM: 16:28 Patient medically screened. 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 States if worsens she wants to drive herself to [facility]. . 22:05 Data reviewed: vital signs, nurses notes. Data interpreted: Pulse oximetry: on room air snw is 98 %. Interpretation: acceptable. 08/02 16:42 Order name: CBC with Diff; Complete Time: 17:57 rn 08/02 16:42 Order name: Basic Metabolic Panel; Complete Time: 17:57 rn 08/02 16:42 Order name: Protime (+inr); Complete Time: 17:57 rn 08/02 16:42 Order name: Ptt, Activated; Complete Time: 17:57 rn 08/02 16:42 Order name: Type And Screen rn 08/02 16:47 Order name: Bb Add On bd 08/02 16:44 Order name: Transfuse; Complete Time: 18:42 rn 08/02 17:06 Order name: Packed RBC Leukored EDMS 08/02 21:59 Order name: Hemoglobin snw 08/02 21:59 Order name: Hemoglobin EDMS Administered Medications: 20:49 Drug: Tylenol 325 mg Route: PO; jd3 21:49 Follow up: Response: No adverse reaction jd3 22:15 Drug: Cyanocobalamin 1000 mcg Route: IM; Site: right deltoid; jd3 22:31 Follow up: Response: No adverse reaction jd3 Disposition: 08/02/19 22:05 Discharged to Home. Impression: Anemia in chronic diseases classified elsewhere. - Condition is Stable. - Discharge Instructions: Anemia, Nonspecific, Blood Transfusion, Adult. - Medication Reconciliation Form, Thank You Letter, Antibiotic Education, Prescription Opioid Use form. - Follow up: Umesh Ulloa MD; When: 1 - 2 days; Reason: Recheck today's complaints, Continuance of care. Addendum: 08/09/2019 19:04 Co-signature as Attending Physician, Balta Olivarez MD. r n Signatures: Dispatcher [employer] EDBess Coelho RN RN aj1 Mai Bains, SENIOR INSTRUMENTATION ENGINEER-C SENIOR INSTRUMENTATION ENGINEER-Csnw Balta Olivarez MD MD rn Davies, Jonathon RN RN jd3 Corrections: (The following items were deleted from the chart) 08/02 17:16 17:[address] Ulloa for blood transfusion, has been on blood thinners for rn ignacia for some time, has chronic bleeding from internal hemorrhoids that require blood transfusion in past, reports generalized fatigue and weakness, no syncope/chest pain/sob. Sent for 1 unit blood transfusion. Has had colonoscopy, told internal hemorrhoids, and continue to bleed. . rn 22:34 22:05 08/02/2019 22:05 Discharged to Home. Impression: Anemia in chronic diseases jd3 classified elsewhere. Condition is Stable. Forms are Medication Reconciliation Form, Thank You Letter, Antibiotic Education, Prescription Opioid Use. Follow up: Umesh Ulloa; When: 1 - 2 days; Reason: Recheck today's complaints, Continuance of care. snw
[2019-08-02] MEDS ORDERED: CYANOCOBALAMIN 1000MCG/ML INJ ONE (22:24)
[2019-08-02 22:42] VITALS: TEMP 97.5
[2019-08-02 22:48] VITALS: BP 151/85; O2SAT 97
== END 2019-08-02 22:34 | disposition home or self-care (01) ==
LOC: ER 15:58
PROC: 30233N1 Transfusion of Nonautologous Red Blood Cells into Peripheral Vein, Percutaneous Approach (ICD-10-PCS; principal; 2019-08-02)
DX: D64.9 Anemia, unspecified (principal); I10 Essential (primary) hypertension; I48.91 Unspecified atrial fibrillation; I25.2 Old myocardial infarction; I34.1 Nonrheumatic mitral (valve) prolapse; Z79.01 Long term (current) use of anticoagulants; Z88.0 Allergy status to penicillin; Z88.5 Allergy status to narcotic agent; Z88.8 Allergy status to other drugs, medicaments and biological substances
CPT/HCPCS: 85025; 80048; 36415; 86900; 86850; 85610; 86901; 85730; 85018; 96372; 99284; 36430; J3420; P9016

== ENCOUNTER 2020-05-16 18:46 | Observation (INO) | payer OTHER ==
--- OUTSIDE RECORDS SUMMARY | 2020-05-16 18:49 | XMS REPORT | Clinical Summary ---
:1945 Author Organization [facility] Address [address] [place] [address] Care Team Providers Name Role Phone Asked, Pcp Primary Care Provider Unavailable Allergies Active Allergy Reactions Severity Noted Date Comments Morphine Hallucinations High 05/19/2019 Penicillins Other (See Comments) High 05/19/2019 Severe mouth rash as a child Promethazine Hallucinations High 05/19/2019 Medications Medication Sig Dispensed Refills Start Date End Date Status sotalol (BETAPACE) Take 40 mg by 0 Active 80 MG tablet mouth 2 (two) times a day. atorvastatin Take 80 mg by 0 Act juice (LIPITOR) 80 MG mouth daily. tablet furosemide (LASIX) Take 20 mg by 0 Active 20 mg tablet mouth daily. potassium chloride Take 1 tablet 30 tablet 1 05/25/2019 Active (KLOR-CON M20) 20 (20 mEq 0 MEQ CR tablet total) by mouth daily. apixaban (ELIQUIS) Take 1 tablet 60 tablet 2 06/24/2019 Active 2.5 mg tablet (2.5 mg total) by mouth 2 (two) times a day. apixaban (ELIQUIS) Take 5 mg by 0 06/24/20 1 Discontinued 5 mg tablet mouth 2 (two) 9 (Sto p Taking at times a day. Dischar ge) ferrous sulfate Take 325 mg 0 Di scontinued 325 (65 FE) MG by mouth 9 (Stop Taking at tablet daily with Discharge ) breakfast. potassium chloride Take 1 tablet 0 01 Discontinued (KLOR-CON M20 by mouth 9 (Stop Taking at ORAL) daily. Discharge) traMADol (ULTRAM) Take 50 mg by 0 06/24/20 1 Discontinued 50 mg mouth every 6 9 (Reord er) tabletIndications: (six) hours acute pain as needed for moderate pain .Acute Pain. ferrous sulfate Take 1 tablet 30 tablet 1 05/25/2019 Discontinued 325 (65 FE) MG (325 mg 9 tablet total) by mouth daily with breakfast. acetaminophen Take 2 10 tablet 0 05/24/2019 Disco ntinued (TYLENOL) 325 MG tablets (650 9 (Stop Taking at tablet mg total) by Dischar ge) mouth every 6 (six) hours as needed for moderate pain for up to 30 days. pantoprazole Take 1 tablet 30 tablet 0 05/25/2019 Di scontinued (PROTONIX) 40 MG (40 mg total) 9 EC tablet by mouth daily. sucralfate Take 1 tablet 90 tablet 0 05/24/2019 Disc ontinued (CARAFATE) 1 gram (1 g total) 9 tablet by mouth 3 (three) times a day before meals. traMADol (ULTRAM) Take 1 tablet 30 tablet 0 06/24/2019 01 50 mg (50 mg total) 9 tabletIndications: by mouth acute pain every 6 (six) hours as needed for moderate pain for up to 30 days .Acute Pain. Active Problems Problem Noted Date Persistent atrial fibrillation 05/23/2019 Encounters Date Type Specialty Care Team Description 06/23/2019 Anesthesia Event Procedural Fransisca-Randell, Cardiology MD Subhash Hooks Maria, PATIENT'S LIBRARIAN 06/23/2019 Surgery Procedural Parminder Hopson ECHO DURING CAT H Cardiology MD Brandon PROCEDURE 06/23/2019 - Hospital Encounter General Internal RamParminder shah Persi stent atrial 06/24/2019 Zamzam Taylor MD fibrillation 05/23/2019 Surgery Procedural JoeiParminder EP COMPLETE EP STUDY Cardiology MD Brandon W ABLATION PULM ONARY VEIN [30532 (CP T)] 05/23/2019 Anesthesia Event Procedural Vicky Dinero Cardiology MD Kam Romero Dustin Kyle, PATIENT'S LIBRARIAN 05/23/2019 - Hospital Encounter General Internal Rami Parminder Persi stent atrial 05/24/2019 Zamzam Taylor MD fibrillation (H CC) (Primary Dx) after 05/16/2019 Surgical History Surgery Date Site/Laterality Comments CARDIAC CATHETERIZATION CORONARY ANGIOPLASTY CARDIOVERSION CAROTID ENDARTERECTOMY Bilateral HUMERUS FRACTURE SURGERY Left HIP PINNING Left CARDIAC ELECTROPHYSIOLOGY 05/23/2019 N/A Proced ure: EP COMPLETE EP PROCEDURE STUDY W ABLATION PULMONARY VEIN; Surgeon: Parminder Hopson MD; Location: [facility] Defect Cutter Invasive Locatio n; Service: Cardiol ogy; Laterality: N/A; CARDIAC CATHETERIZATION 06/23/2019 N/A Procedur e: ECHO DURING CATH PROCEDURE; Surgeon: Parminder Hopson MD; Location: [facility] Defect Cutter Invasive Locatio n; Service: Cardiov ascular; Laterality: N/A; CARDIAC CATHETERIZATION 06/23/2019 N/A Procedur e: Cv left atrial appendage closur e; Surgeon: Constantino Hopson MD; Loc ation: [facility] Defect Cutter Invasive Location; Serv ce: Cardiovascular; Laterality: N/A; Procedure aborte d Medical History Medical History Date Comments Carotid artery occlusion Hyperlipidemia Hypertension Atrial fibrillation (HCC) Macular degeneration Stroke (HCC) x8 Family History Medical History Relation Name Comments Heart disease Paternal Grandmother Relation Name Status Comments Paternal Grandmother Social History Tobacco Use Types Packs/Day Years Used Date Former Smoker Quit: 2008 Smokeless Tobacco: Never Used Comments: Quit 10 years ago Alcohol Use Drinks/Week oz/Week Comments Never Alcohol Habits Answer Date Recorded How often do you have a drink containing alcohol? Never 05/23/2019 How many drinks containing alcohol do you have on a typical Not asked day when you are drinking? How often do you have six or more drinks on one occasion? No t asked Sex Assigned at Date Recorded Not on file Last Filed Vital Signs Vital Sign Reading Time Taken Comments Blood Pressure 99/71 06/24/2019 7:41 AM [employer] Pulse 57 06/24/2019 7:41 AM [employer] Temperature 36.4 C (97.5 F) 06/24/2019 7:41 AM [employer] Respiratory Rate 16 06/24/2019 7:41 AM [employer] Oxygen Saturation 90% 06/24/2019 7:41 AM [employer] Inhaled Oxygen Concentration - - Weight 79.9 kg (176 lb 1.6 oz) 06/24/2019 4:00 AM [employer] Height 157.5 cm (5' 2") 06/24/2019 4:00 AM [employer] Body Mass Index 32.21 06/24/2019 4:00 AM [employer] Plan of Treatment Health Maintenance Due Date Last Done Comments DIABETIC RETINAL EYE EXAM 1945 DIABETIC FOOT EXAM 1956 URINE MICROALBUMIN 1956 BREAST CANCER SCREENING 1996 COLONOSCOPY SCREENING 1996 SHINGLES VACCINES (#1) 1996 65+ PNEUMOCOCCAL VACCINE (1 of 1 - PPSV23) 10/06/2011 INFLUENZA VACCINE 03/03/2020 Procedures Procedure Name Priority Date/Time Associated Diagnosis Comme nts POC GLUCOSE Routine 06/24/2019 7:43 Results for this AM [employer] procedure are i n the results section. POC GLUCOSE Routine 06/24/2019 6:53 Results for this AM [employer] procedure are i n the results section. BASIC METABOLIC PANEL Routine 06/24/2019 6:22 Re sults for this AM [employer] procedure are i n the results section. ESTIMATED GFR Routine 06/24/2019 6:22 Results fo r this AM [employer] procedure are i n the results section. HC COMPLETE BLD COUNT Routine 06/24/2019 6:22 Re sults for this W/AUTO DIFF AM [employer] procedure are i n the results section. MAGNESIUM LEVEL Routine 06/24/2019 6:22 Results for this AM [employer] procedure are i n the results section. ECG PRE/POST OP Routine 06/24/2019 4:54 Results for this AM [employer] procedure are i n the results section. POC GLUCOSE Routine 06/23/2019 10:11 Results for this PM [employer] procedure are i n the results section. MAGNESIUM LEVEL Routine 06/23/2019 3:23 Results for this PM [employer] procedure are i n the results section. ESTIMATED GFR Routine 06/23/2019 3:23 Results fo r this PM [employer] procedure are i n the results section. BASIC METABOLIC PANEL Routine 06/23/2019 3:23 Re sults for this PM [employer] procedure are i n the results section. ECG 12-LEAD Routine 06/23/2019 3:21 Results for this PM [employer] procedure are i n the results section. XR CHEST 1 VW PORTABLE Routine 06/23/2019 3:20 R esults for this PM [employer] procedure are i n the results section. CV LEFT ATRIAL Routine 06/23/2019 2:44 Persistent atrial Resu lts for this APPENDAGE CLOSURE PM [employer] fibrillation procedure are in the results section. TRANSESOPHAGEAL ECHO Routine 06/23/2019 2:44 Persistent atria l Results for this DURING CATH PM [employer] fibrillation procedure are i n the results section. ANESTHESIA HENNA Routine 06/23/2019 2:10 Results f or this PM [employer] procedure are i n the results section. CA AN ELECTIVE Routine 06/23/2019 1:44 Results f or this ENDOTRACHEAL AIRWAY PM [employer] procedur e are in the results section. TYPE AND SCREEN STAT 06/23/2019 11:26 Results for this AM [employer] procedure are i n the results section. POC PANEL Routine 06/23/2019 11:15 Results for this AM [employer] procedure are i n the results section. ESTIMATED GFR Routine 06/23/2019 11:15 Results fo r this AM [employer] procedure are i n the results section. CREATINE KINASE, TOTAL Timed 05/24/2019 11:20 R esults for this (CPK) AM CDT procedure are i n the results section. TROPONIN Timed 05/24/2019 11:20 Results for this AM CDT procedure are i n the results section. XR CHEST 1 VW PORTABLE STAT 05/24/2019 6:32 R esults for this AM CDT procedure are i n the results section. CREATINE KINASE, TOTAL STAT 05/24/2019 5:54 R esults for this (CPK) AM CDT procedure are i n the results section. PARTIAL THROMBOPLASTIN STAT 05/24/2019 5:54 R esults for this TIME (PTT) AM CDT procedure are i n the results section. PROTHROMBIN TIME WITH STAT 05/24/2019 5:54 Re sults for this INR AM CDT procedure are i n the results section. TROPONIN STAT 05/24/2019 5:54 Results for this AM CDT procedure are i n the results section. PHOSPHORUS LEVEL STAT 05/24/2019 5:54 Results for this AM CDT procedure are i n the results section. MAGNESIUM LEVEL STAT 05/24/2019 5:54 Results for this AM CDT procedure are i n the results section. B NATRIURETIC PEPTIDE STAT 05/24/2019 5:54 Re sults for this AM CDT procedure are i n the results section. HC COMPLETE BLD COUNT STAT 05/24/2019 5:54 Re sults for this W/AUTO DIFF AM CDT procedure are i n the results section. ECG 12-LEAD Routine 05/24/2019 5:08 Results for this AM CDT procedure are i n the results section. ECG 12-LEAD Routine 05/24/2019 3:55 Results for this AM CDT procedure are i n the results section. ESTIMATED GFR Routine 05/24/2019 12:21 Results fo r this AM CDT procedure are i n the results section. MAGNESIUM LEVEL Routine 05/24/2019 12:21 Results for this AM CDT procedure are i n the results section. PROTHROMBIN TIME WITH Routine 05/24/2019 12:21 Re sults for this INR AM CDT procedure are i n the results section. BASIC METABOLIC PANEL Routine 05/24/2019 12:21 Re sults for this AM CDT procedure are i n the results section. HC COMPLETE BLD COUNT Routine 05/24/2019 12:21 Re sults for this W/AUTO DIFF AM CDT procedure are i n the results section. ECG 12-LEAD STAT 05/23/2019 5:55 Results for this PM CDT procedure are i n the results section. EP COMPLETE EP STUDY W Routine 05/23/2019 5:31 Persistent atr ial Results for this ABLATION PULMONARY VEIN PM CDT fibrillation proc edure are in the results section. ACTIVATED CLOTTING TIME Routine 05/23/2019 5:29 Results for this PM CDT procedure are i n the results section. SODIUM LEVEL, SYRINGE STAT 05/23/2019 5:15 Re sults for this PM CDT procedure are i n the results section. POTASSIUM, SYRINGE STAT 05/23/2019 5:15 Resul ts for this PM CDT procedure are i n the results section. ARTERIAL BLOOD GAS, STAT 05/23/2019 5:15 Resu lts for this CORRECTED PM CDT procedure are i n the results section. IONIZED CALCIUM, STAT 05/23/2019 5:15 Results for this ARTERIAL PM CDT procedure are i n the results section. HEMOGLOBIN, SYRINGE STAT 05/23/2019 5:15 Resu lts for this PM CDT procedure are i n the results section. GLUCOSE LEVEL, SYRINGE STAT 05/23/2019 5:15 R esults for this PM CDT procedure are i n the results section. ACTIVATED CLOTTING TIME Routine 05/23/2019 3:33 Results for this PM CDT procedure are i n the results section. ACTIVATED CLOTTING TIME Routine 05/23/2019 2:52 Results for this PM CDT procedure are i n the results section. ARTERIAL LINE Routine 05/23/2019 2:20 Results fo r this PM CDT procedure are i n the results section. CA AN ELECTIVE Routine 05/23/2019 2:19 Results f or this ENDOTRACHEAL AIRWAY PM CDT procedur e are in the results section. POC PANEL Routine 05/23/2019 10:19 Results for this AM CDT procedure are i n the results section. ESTIMATED GFR Routine 05/23/2019 10:19 Results fo r this AM CDT procedure are i n the results section. TYPE AND SCREEN STAT 05/23/2019 10:04 Results for this AM CDT procedure are i n the results section. ECG PRE/POST OP Routine 05/23/2019 9:41 Results for this AM CDT procedure are i n the results section. after 05/16/2019 Results POC glucose (06/24/2019 7:43 AM [employer])Only the most recent of3 resultswithin the time period is included. Pathologist Sig nature POC glucose 108 (H) 65 - 99 mg/dL SAHA CATHOLIC Comment: [facility] Notified RN Meter ID: [id number] Linen Room Worker: Joshua Sanchez Specimen Performing Organization Address [facility] Phon e Number [facility] DEPARTMENT OF PATHOLOGY AND [address] [place] [address] [phone] [address] Estimated GFR (06/24/2019 6:22 AM [employer])Only the most recent of5 resultswithin the time period is included. Estimated GFR 53 (A) mL/min/1.73 MARIA A BRYANT Comment: HOSPITAL Catergory Units Interpretation G1 >=90 Normal or high G2 60-89 Mildly decreased G3a 45-59 Mildly to moderately decreas ed G3b 30-44 Moderately to severely decre ased G4 15-29 Severely decreased G5 <15 Kidney failure The eGFR was calculated using the Chronic Kidney Disea se Epidemiology Collaboration (CKD-EPI) equation. Interpretation is based on recommendations of the National Kidney Foundation-Kidney Disease Outcomes Jerome lity Initiative (NKF-KDOQI) published in 2014. Specimen Plasma specimen Narrative Performed At [facility] added per Rodrigue Gongora at 08:43 06/24/19 [facility] DEPARTM ENT OF PATHOLOGY AND GENOMIC by [facility] MEDICINE Performing Organization Address City/[facility] Phon e Number [facility] DEPARTMENT OF PATHOLOGY AND [address] [place] [address] [phone] [address] CBC with platelet and differential (06/24/2019 6:22 AM [employer])Only the most recent of3 resultswithin the time period is included. WBC 4.13 (L) 4.50 - 11.00 [facility] RBC 3.60 (L) 4.20 - 5.50 [facility] HGB 8.5 (L) 12.0 - 16.0 [facility] HCT 29.7 (L) 37.0 - 47.0 % [facility] MCV 82.5 82.0 - 100.0 [facility] MCH 23.6 (L) 27.0 - 34.0 [facility] MCHC 28.6 (L) 31.0 - 37.0 [facility] RDW - SD 53.0 37.0 - 55.0 [facility] MPV SEE 8.8 - 13.2 [facility] COMMENTComment: HOSPITAL No report Platelet count 120 (L) 150 - 400 [facility] Nucleated RBC 0.00 /100 WBC [facility] Neutrophils 58.1 39.0 - 69.0 % [facility] Lymphocytes 25.7 25.0 - 45.0 % [facility] Monocytes 9.4 0.0 - 10.0 % [facility] Eosinophils 5.6 (H) 0.0 - 5.0 % [facility] Basophils 1.0 0.0 - 1.0 % [facility] Immature granulocytes 0.2Comment: 0.0 - 1.0 % [facility] "Immature HOSPITAL granulocytes" (promyelocytes, myelocytes, metamyelocytes) Specimen Blood Performing Organization Address City/[facility] Phon e Number [facility] DEPARTMENT OF PATHOLOGY AND [address] [place] [phone] GENOMIC MEDICINE [address] [address] Magnesium level (06/24/2019 6:22 AM [employer])Only the most recent of4 resultswithin the time period is included. Pathologist Sig nature Magnesium 2.0 1.6 - 2.4 mg/dL [facility] L Specimen Plasma specimen Narrative Performed At [facility] added per Rodrigue Gongora at 08:43 06/24/19 [facility] DEPARTM ENT OF PATHOLOGY AND GENOMIC by [id number] MEDICINE Performing Organization Address City/[facility]/ZIP Code Phon e Number [facility] DEPARTMENT OF PATHOLOGY AND [address] [place] [address] [phone] [address] Basic metabolic panel (06/24/2019 6:22 AM [employer])Only the most recent of3 results within the time period is included. Pathologist Sig nature Sodium 136 135 - 148 mEq/L [facility] Potassium 4.4 3.5 - 5.0 mEq/L [facility] Chloride 102 98 - 112 mEq/L [facility] CO2 23 (L) 24 - 31 mEq/L [facility] Anion gap 11@ANIO 7 - 15 mEq/L [facility] BUN 14 8 - 23 mg/dL [facility] Creatinine 1.05 (H) 0.50 - 0.90 mg/dL [facility] Glucose 84 65 - 99 mg/dL [facility] Calcium 9.4 8.8 - 10.2 mg/dL [facility] Specimen Plasma specimen Narrative Performed At [facility] added per Rodrigue Gongora at 08:43 06/24/19 [facility] DEPARTM ENT OF PATHOLOGY AND GENOMIC by ML2 MEDICINE Performing Organization Address City/State/ZIP Code Phon e Number [facility] DEPARTMENT OF PATHOLOGY AND [address] [place] [address] [phone] [address] ECG Pre/Post Op-Tomorrow (06/24/2019 4:54 AM [employer])Only the most recent of2 resultswithin the time period is included. Pathologist Sig nature Ventricular rate 54 [facility] Atrial rate 54 [facility] CA interval 136 [facility] QRSD interval 68 [facility] QT interval 494 [facility] QTC interval 468 [facility] P axis 1 10 [facility] QRS axis 1 -17 [facility] T wave axis 12 [facility] EKG impression Sinus [facility]USE bradycardia-Cannot rule out Anterior infarct , age undetermined-Abnormal ECG- Specimen Narrative Performed At This result has an attachment that is no t available. Performing Organization Address City/State/ZIP Code Phon e Number [facility] MUSE [address] [place] [id number] ECG 12 lead (06/23/2019 3:21 PM [employer])Only the most recent of4 resultswithin the time period is included. Pathologist Sig nature Ventricular rate 66 [facility] Atrial rate 66 [facility] CA interval 158 [facility] QRSD interval 74 [facility] QT interval 452 [facility] QTC interval 473 [facility] P axis 1 57 [facility] QRS axis 1 -8 [facility] T wave axis 21 [facility] EKG impression Sinus rhythm with [facility] MUSE premature atrial complexes-Otherwise normal ECG- Specimen Narrative Performed At This result has an attachment that is no t available. Performing Organization Address City/[facility] Code Phon e Number [facility] MUSE [address] [place] [address] XR Chest 1 Vw Portable (06/23/2019 3:20 PM [employer])Only the most recent of2 results within the time period is included. Specimen Narrative Performed At EXAMINATION: XR CHEST 1 VW PORTABLE [facility] CLINICAL HISTORY: post watchman implan t COMPARISON: May 24, 2019 IMPRESSION: Shoulder prosthesis noted on the left. There is cardiomegaly. Thoracic aorta is tortuous bu t not dilated. Pulmonary vasculature is mildly prominent more on th e right than the left. No focal infiltrate. Reticular pattern to th e lung palomino has decreased since the reference exam. [facility]-[id number] Procedure Note Interface, Radiology Results Incoming - 06/23/2019 3:34 PM [employer] EXAMINATION: XR CHEST 1 VW PORTABLE CLINICAL HISTORY: post watchman implant COMPARISON: May 24, 2019 IMPRESSION: Shoulder prosthesis noted on the left. There is cardiomegaly. Thoracic aorta i s tortuous but not dilated. Pulmonary vasculature is mildly prominent more on the right than the left. No focal infiltrate. Reticular pattern to the lung palomino has decreased since the reference exam. [facility]-[id number] Performing Organization Address City/[facility] Phon e Number [facility] [address] [place] [address] laboratory equipment cleaner procedure (06/23/2019 2:44 PM [employer]) Specimen Narrative Performed At This result has an attachment that is no t available. PLANT ELECTRICAL ENGINEER: TIFFANY Hopson MD COMPLICATIONS: None. ESTIMATED BLOOD LOSS: 10 mL SPECIMEN REMOVED: None. ANESTHESIA: General. PROCEDURES PERFORMED: 1. Aborted Watchman implant. 2. Intracardiac echocardiogram. 3. Ultrasound-guided vascular access. PREOPERATIVE DIAGNOSES: 1. Atrial fibrillation, status post pulmonary vein a blation. 2. Recurrent gastrointestinal bleed. 3. Diastolic related congestive heart failure. 4. Hypertension. 5. Coronary artery disease. 6. History of multiple strokes. POSTOPERATIVE DIAGNOSES: As above. HISTORY OF PRESENT ILLNESS: The patient is a 73-year-old female with the above-not ed history, who was referred for a left atrial appendage closure device wi th Watchman implant given the risk of stroke with a high CHADS-VASc score, and a recurrent gastrointestinal bleed with a high HAS-BLED score. PROCEDURE IN DETAIL: The patient was brought to the procedure room in a fas ting state. Informed consent was obtained. The patient was prepped and dr dent in the usual fashion. General anesthesia was used for the procedure. Prepr ocedure HENNA was done demonstrating a small left atrial appendage by HENNA. Decision was made to assess left atrial appendage ostium by fluoroscopy and left a trial appendage angiography. Ultrasound-guided vascular access was o btained of the right femoral vein. A 9-Kyrgyz sheath was placed via which an intracardiac echocardiogram was advanced and used to assist with tr ansseptal puncture. A transseptal sheath was advanced and the fossa ovalis w as engaged. Transseptal puncture was performed with application of Bovie. We then used a pigtail catheter to engage the left atrial appendage. Multip le injections were done via both the pigtail and the introducer sheath demonstrati ng a chicken wing left atrial appendage with a very narrow ostium as well as a very narrow opening of the individual lobe of the left atrial appendage, henc e even the smallest Watchman device would be too large. Furthermore, we were unable to get the appropriate depth to deliver such a device. Hence, t he decision was made to abort the procedure. No evidence of pericardial effu aime at the end of the case. The patient tolerated the procedure well with no hemodynamic, neurologic, or respiratory sequelae. CONCLUSION: Aborted a Watchman implant due to small ostial size an d changing chicken wing morphology with narrow opening of the individual lobes with resultant inability to engage an introducer sheath to achieve depth as wel l as a concern for excessive compression with even the smallest device. RECOMMENDATIONS: The patient will continue on anticoagulation for the t rickey being, and alternative options can be considered in the future including left atrial appendage clip. Performing Organization Address City/State/ZIP Code Phon e Number [facility] [address] [place] [address] HENNA (06/23/2019 2:10 PM [employer]) Narrative Performed At Tomasz Nunez MD 4:49 PM Procedure Performed: HENNA Start Time: 06/23/2019 1:45 PM End Time: Preanesthesia Checklist: Patient identified, IV assessed, risks a nd benefits discussed, monitors and equipment assessed, procedure being performed at surgeon's request, anesthesia consent obtained. General Procedure Information Diagnostic Indications for Echo: asses sment of surgical repair and hemodynamic monitoring Physician Requesting Echo: Parminder Hopson MD Location performed: OR Intubated Bite block placed Heart visualized Probe Insertion: Easy Probe Type: Multiplane Modalities: Color flow mapping, continuous wave Dopp ler and pulse wave Doppler Echocardiographic and Doppler Measuremen ts Ventricles Right Ventricle: Cavity size normal. Hypertrophy not present. Throm bus not present. Global function normal. Left Ventricle: Cavity size normal. Hypertrophy present. Thrombus not present. Global Function normal. Ejection Fraction 60% . Valves Aortic Valve: Annulus normal. Stenosis not present. Regurgitation absent. Mitral Valve: Annulus normal. Stenosis mild. Regur gitation absent. Tricuspid Valve: Annulus normal. Stenosis not present. Regurgitatio n absent. Leaflets normal. Aorta Ascending Aorta: Size normal. Diameter 3.8 cm. Dissection not prese nt. Plaque thickness less than 3 mm. Aortic Arch: Size normal. Dissection not present. Plaque thickn ess less than 3 mm. Descending Aorta: Size normal. Dissection not present. Plaque thickn ess less than 3 mm. Atria Right Atrium: Size normal. Spontaneous echo contrast not present. Thrombus not present. Tumor not present. Device n ot present. Left Atrium: Size dilated. Spontaneous echo contrast present. T hrombus not present. Tumor not present. Device not present. Left atrial appendage normal. Other Findings Pericardium: normal Anesthesia Information Performed Personally Anesthesiologist: Tigist Nunez MD Echocardiogram Comments: Pre Watchman HENNA !. Normal LV function 2. Normal RV function 3. LA dilation. RILEY appears small, no ev idence of thrombus. 4. MV appears calcified, mean diastolic gradient 4mmHg 5. Trivial TR 6. Aortic valve is trileaflet, opens wel l 7. Small anterior pericardial effusion Airway (06/23/2019 1:44 PM [employer]) Narrative Performed At Tomasz Nunez MD 4:49 PM Airway Date/Time: 06/23/2019 1:30 PM Performed by: Milagros Cullen CRNA Authorized by: Tomasz Nunez MD Location: OR Urgency: Elective Difficult Airway: No Anesthesiologist: Tigist Nunez MD Resident/PATIENT'S LIBRARIAN/AA: Milagros Cullen CR NA Performed by: resident/PATIENT'S LIBRARIAN/AA Preoxygenated with 100% O2: Yes C-spine Precautions Maintained Throughou t: Yes Mask Ventilation: Easy mask Final Airway Type: Endotracheal airway Final Endotracheal Airway: ETT Cuffed: Yes Technique Used: Direct laryngoscopy Devices/Methods Used in Placement: Int ubating stylet Insertion Site: Oral Blade Type: Brown Laryngoscope Blade/Videolaryngoscope Jaylen de Size: 2 ETT Size (mm): 7.0 Cuff at minimum occlusion pressure: Yes Measured from: Lips ETT to Lips (cm): 22 Placement Verified by: CO2 detection and direct visualization Laryngoscopic view: Grade I - full vie w of glottis Rapid Sequence Induction (RSI): No Modified RSI: No Number of Attempts at Approach: 1 Atraumatic. Type and screen (06/23/2019 11:26 AM [employer])Only the most recent of2 resultswithin the time period is included. Pathologist Sig nature ABO grouping A [facility] Rh type POS [facility] Antibody screen (gel) NEG [facility] Specimen Blood Performing Organization Address City/State/ZIP Code Phon e Number [facility] DEPARTMENT OF PATHOLOGY AND [address] [place] [phone] GENOMIC MEDICINE [facility] [address] [place] [phone] POC panel (06/23/2019 11:15 AM [employer])Only the most recent of2 resultswithin the time period is included. POC sodium 138 135 - 148 [facility] mmol/L [facility] POC potassium 4.8 3.5 - 5.0 [facility] mmol/L [facility] POC chloride 105 99 - 109 [facility] mmol/L [facility] POC CO2 27 24 - 31 mmol/L [facility] POC glucose 90 65 - 99 mg/dL [facility] POC BUN 13 8 - 24 mg/dL [facility] POC creatinine 0.9 0.5 - 0.9 [facility] mg/dl [facility] POC hematocrit 31 (L) 37 - 47 % [facility] POC anion gap 12 8 - 20 mmol/L [facility] Comment: HOSPITAL Meter ID: [id number] Linen Room Worker: Delmis Paulino Specimen Performing Organization Address [facility] Phon e Number [facility] DEPARTMENT OF PATHOLOGY AND [address] [place] [address] [phone] [address] Troponin (05/24/2019 11:20 AM CDT)Only the most recent of2 resultswithin the time period is included. Pathologist [facility] Troponin 3.893 (HH) 0.000 - 0.040 [facility] Comment: ng/mL [facility] changed methodology eff ective: 12/07/2018 at 10:00 am The new method has a 99th percentile cutoff of 0.040 n g/mL Specimen Plasma specimen Performing Organization Address [facility] Phon e Number [facility] DEPARTMENT OF PATHOLOGY AND [address] [place] [address] [phone] [address] Creatine kinase, total (CPK) (05/24/2019 11:20 AM CDT)Only the most recent of2 resultswithin the time period is included. Pathologist [facility] Creatine kinase 113 26 - 192 U/L [facility] L Specimen Plasma specimen Performing Organization Address [facility] Phon e Number [facility] DEPARTMENT OF PATHOLOGY AND [address] [place] [address] [phone] [address] Partial thromboplastin time, activated (05/24/2019 5:54 AM CDT) Pathologist [facility] PTT 30.0 23.0 - 36.0 [facility] Comment: [facility] HOSPITAL PTT therapeutic range for unfractionated heparin is 61.0-112.0 seconds which corresponds to Anti-Xa 0.3-0.7 U/ml. Specimen Blood Performing Organization Address [facility]/ZIP Code Phon e Number [facility] DEPARTMENT OF PATHOLOGY AND [address] [place] [address] [place] [address] Prothrombin time with INR (05/24/2019 5:54 AM CDT)Only the most recent of2 resultswithin the time period is included. Prothrombin time 15.3 (H) 11.5 - 14.5 [facility] INR 1.2 [facility] Comment: [facility] International Normalized Ratio (INR) is a [facility] monitoring tool for patients who are stable on oral anticoagulant therapy. An INR of 2.0-3.0 is suggested for deep vein thrombosis/pulmonary embolism. Specimen Blood Performing Organization Address City/[facility] Phon e Number [facility] DEPARTMENT OF PATHOLOGY AND [address] [place] [address] Phosphorus level (05/24/2019 5:54 AM CDT) Pathologist Sig nature Phosphorus 4.0 2.4 - 4.5 mg/dL [facility] L Specimen Plasma specimen Performing Organization Address City/[facility] Phon e Number [facility] DEPARTMENT OF PATHOLOGY AND [address] [place] [address] B natriuretic peptide (05/24/2019 5:54 AM CDT) Pathologist Sig nature BNP 272 (H) 0 - 100 pg/mL [facility] Specimen Blood Narrative Performed At [facility] results called to and read back by [facility] DEPARTMENT OF PATHOLOGY AND GENOMIC PRO DAVIS/WT MEDICINE at 05/24/2019 07:10 by KLOGAN. CPK added and read back to Kim Briggs in [id number] 05/24/2019 07:29 LMID. Performing Organization Address City/[facility] Phon e Number [facility] DEPARTMENT OF PATHOLOGY AND [address] [place], [place] [phone] [address] [place] [address] Electrophysiology procedure (05/23/2019 5:31 PM CDT) Specimen Narrative Performed At This result has an attachment that is no t available. PLANT ELECTRICAL ENGINEER: PATEL Hopson. COMPLICATIONS: None. ESTIMATED BLOOD LOSS: 10 mL. SPECIMEN REMOVED: None. ANESTHESIA: General. PROCEDURES PERFORMED: 1. Atrial fibrillation ablation with pulmonary vein isolation. 2. Extrapulmonary ablation with posterior wall isola tion. 3. Intracardiac echocardiogram. 4. 3D mapping. 5. Pharmacologic drug infusion. 6. Ultrasound-guided vascular access. PREOPERATIVE DIAGNOSES: 1. Persistent atrial fibrillation. 2. Diastolic related congestive heart failure. 3. Coronary artery disease. 4. Hypertension. 5. Prior strokes. POSTOPERATIVE DIAGNOSES: 1. Persistent atrial fibrillation. 2. Diastolic related congestive heart failure. 3. Coronary artery disease. 4. Hypertension. 5. Prior strokes. HISTORY OF PRESENT ILLNESS: The patient is a 73-year-old female with history of dr ug refractory, drug intolerant atrial fibrillation, was referred for an EP study and ablation. PROCEDURE IN DETAIL: The patient was brought to the EP lab in a fasting sta te. Informed consent was obtained. The patient was prepped and draped in the usual sterile fashion. Ultrasound-guided vascular access obtained in the righ t femoral vein. Catheters advanced including decapolar catheter placed in chacon ry sinus with great difficulty. Intracardiac echocardiogram, which was u sed to exclude left atrial appendage clot, monitor catheter positioning, monitor pericardial effusion, and recreate 3D geometry, and assist with transseptal punc ture. Heparin bolus was given immediately after vascular access. Transseptal puncture was successfully performed. Baseline 3D geometry and voltage map was done. Wider circumferential ablation was then done of the left pul monary veins and then the right pulmonary veins. Extrapulmonary vein ablation performed along the LA floor, LA roof and targeted posterior wall ablation as needed to achieve posterior wall isolation with entrance and exit block. We then did programmed atrial stimulation with up to double atrial stimuli wi th no induced arrhythmias. We did not use isoproterenol due to intermittent issu es with hypotension. No evidence of pericardial effusion at the end of the ebenezer e. FINDINGS: Mean LA pressure was 18 mmHg. AV Wenckebach achieved at 300 milliseconds. AV node and atrial ERP was [address]ilyn n of 600 milliseconds. Catheter ablation was performed using medel between 4 5 to 50 bertrand with contact force between 7 and 35 grams. Duration of lesions we re limited to 4 to 6 seconds along the posterior wall and up to 8 to 10 sec onds in the remainder of the atrium. CONCLUSION: 1. Successful pulmonary vein isolation of the left p ulmonary veins, right pulmonary veins. 2. Extra pulmonary vein ablation performed with post erior wall isolation. 3. No induced arrhythmias with aggressive double atr ial stimulation. RECOMMENDATIONS: The patient will complete the appropriate postprocedur e wound care and activity restriction. ADDENDUM: The patient had a very challenging CS emma ulation. Performing Organization Address [facility] Phon e Number [facility] [address] [place] [address] Activated clotting time (05/23/2019 5:29 PM CDT)Only the most recent of3 resultswithin the time period is included. Activated clotting 109 96 - 152 sec [facility] Comment: HOSPITAL Meter ID: [id number] Linen Room Worker: Maria Teresa Au Specimen Performing Organization Address [facility] Phon e Number [facility] DEPARTMENT OF PATHOLOGY AND [address] [place] [address] [phone] [address] Sodium level, syringe (05/23/2019 5:15 PM CDT) Pathologist Sig nature Sodium, syringe 140 135 - 148 mEq/L [facility] Specimen Blood Performing Organization Address [facility] Phon e Number [facility] DEPARTMENT OF PATHOLOGY AND [address] [place] [address] [phone] [address] Potassium, syringe (05/23/2019 5:15 PM CDT) Pathologist Sig nature Potassium, syringe 3.9 3.5 - 5.0 mEq/L [facility] Specimen Blood Performing Organization Address [facility] Phon e Number [facility] DEPARTMENT OF PATHOLOGY AND [address] [place] [address] [phone] [address] Ionized calcium, arterial (05/23/2019 5:15 PM CDT) Pathologist Sig nature Ionized calcium, 1.14 1.11 - 1.32 [facility] arterial mmol/L [facility] Specimen Blood Performing Organization Address [facility] Phon e Number [facility] DEPARTMENT OF PATHOLOGY AND [address] [place] [address] [phone] [address] Hemoglobin, syringe (05/23/2019 5:15 PM CDT) Pathologist Sig nature Hemoglobin, syringe 7.8 (L) 12.0 - 16.0 g/dL [facility] Specimen Blood Performing Organization Address City/[facility] Phon e Number [facility] DEPARTMENT OF PATHOLOGY AND [address] [place] [address] [phone] [address] Glucose level, syringe (05/23/2019 5:15 PM CDT) Pathologist Sig nature Glucose, syringe 97 65 - 99 mg/dL [facility] Specimen Blood Performing Organization Address [facility] Phon e Number [facility] DEPARTMENT OF PATHOLOGY AND [address] [place] [address] Arterial blood gas, corrected (05/23/2019 5:15 PM CDT) Pathologist Sig nature pH, arterial 7.36 7.35 - 7.45 [facility] pCO2, arterial 40 35 - 45 mmHg [facility] pO2, arterial 241 (H) 80 - 90 mmHg [facility] Temperature, Celsius 37.0 Degrees C [facility] O2 saturation, 100 95 - 100 % [facility] arterial HOSPITAL pH, arterial 7.36 [facility] pCO2, arterial 40 mmHg [facility] pO2, arterial 241 mmHg [facility] Base excess, arterial -3 (L) -2 - 2 mEq/L [facility] Specimen Blood Performing Organization Address City/[facility] Phon e Number [facility] DEPARTMENT OF PATHOLOGY AND [address] [place] [address] Arterial line (05/23/2019 2:20 PM CDT) Narrative Performed At Sanket Humphrey CRNA 2018 2:21 PM Arterial line Performed by: Sanket Humphrey CRN A Authorized by: Vicky Dinero MD Patient Location: OR Staff: Anesthesiologist: Vicky Dinero MD Performed by: Anesthesiologist Pre-procedure: patient identified, IV ch ecked, site and side verified, risks and benefits discussed, procedure verified, surgical consent complete, patient position confirmed, monitors and equ ipment checked and pre-op evaluation complete MSBT: antiseptic used, all elements of maximal sterile barrier technique followed, hand hygiene performed, cap/go wn used by other personnel and solutions labeled Indications: Indications: multiple ABGs and hemody namic monitoring Anesthesia: Anesthesia: General Procedure Details: Arterial Line placement: Placed pos t induction Line placement site: Radial Line placement side: Right Arterial line gauge: 20 G Number of attempts: 1 Ultrasound guidance used: No Post-procedure: Post-procedure: Sterile dressing ap plied Post procedure circulation, sensation , movement: Normal Patient tolerance: Patient tolerate d the procedure well with no immediate complications Airway (05/23/2019 2:19 PM CDT) Narrative Performed At Sanket Humphrey CRNA 2018 2:21 PM Airway Performed by: Sanket Humphrey CRN A Authorized by: Vicky Dinero MD Location: OR Urgency: Elective Difficult Airway: No Resident/MITZI/AA: Sanket Humphrey CRNA Performed by: resident/MITZI/AA Preoxygenated with 100% O2: No C-spine Precautions Maintained Throughou t: No Mask Ventilation: Easy mask Final Airway Type: Endotracheal airway Final Endotracheal Airway: ETT Cuffed: Yes Technique Used: Direct laryngoscopy Devices/Methods Used in Placement: Int ubating stylet Insertion Site: Oral Blade Type: Brown Laryngoscope Blade/Videolaryngoscope Jaylen de Size: 2 ETT Size (mm): 8.0 Cuff at minimum occlusion pressure: Yes Measured from: Gums ETT to Gums (cm): 23 Placement Verified by: CO2 detection and direct visualization Laryngoscopic view: Grade I - full vie w of glottis Rapid Sequence Induction (RSI): No Modified RSI: No Number of Attempts at Approach: 1 after 05/16/2019 [address] (Home) [place] [phone] Advance Directives For more information, please contact: [phone] Type Date Recorded Patient Psychologists Explanati on Advance Directives, Living Will and Medical Power of Medication Aid
--- OUTSIDE RECORDS SUMMARY | 2020-05-16 18:49 | XMS REPORT | Clinical Summary ---
:1945 Author Organization [facility] Address [address] [place] [address] Care Team Providers Name Role Phone Roseann Pinto DO Primary Care Provider Sharpless Unavailable Elie Alcaraz Unavailable Allergies Active Allergy Reactions Severity Noted Date Comments Morphine 10/20/2017 Morphine Other (See High 02/07/2018 Pt. States has severe Comments) hallucinations when given medicatio n Penicillins Hives Medium 02/07/2018 Pt. States chasity ks out in hives; cannot r ecall the severity since first reaction was du ring childhood Promethazine-Dm 10/20/2017 Promethazine-Phenyleph Other (See High 02/07/2018 Pt mcclendon s hallucinations rine Comments) when given medi cations Medications Medication Sig Dispensed Refills Start Date End Date Status atorvastatin (LIPITOR) Take 80 mg by 0 Active 40 MG tablet mouth daily . aspirin 81 MG EC Take 81 mg by 0 Active tablet mouth daily. furosemide (LASIX) 20 Take 20 mg by 0 Active MG tablet mouth 2 (two) times daily. potassium chloride Take 20 mEq by 0 Active (KLOR-CON) 20 mEq mouth daily. packet apixaban (ELIQUIS) 5 Take 1 tablet (5 60 tablet 3 02/13/2018 Active mg Tab tablet mg total) by mouth 2 (two) times daily. COMBIVENT RESPIMAT INL 2 PFS PO 2 TO 3 10/08/2018 Active 20-100 mcg/actuation 3 TIMES QD PRN Mist inhaler irbesartan (AVAPRO) Take 150 mg by 0 Active 150 MG tablet mouth nightly. nitroglycerin Place 0.4 mg under 0 Active (NITROSTAT) 0.4 MG SL the tongue every 5 tablet (five) minutes as needed for Chest pain Put 1 pill under tongue every 5min as needed for chest pain.No more than 3 doses in 15min.Call 911 if pain is unrelieved 5min after 1st dose . famotidine (PEPCID) 20 Take 1 tablet (20 30 tablet 0 9 Active MG tablet mg total) by mouth daily. traMADol (ULTRAM) 50 Take 50 mg by 0 11/12/2018 Active mg tablet mouth every 8 (eight) hours as needed. Active Problems Problem Noted Date Anemia 10/28/2018 [...] fibrillation Stroke S/P carotid endarterectomy Overview: right Family History Medical History Relation Name Comments Cancer Father Cancer Mother Relation Name Status Comments Father Mother Social History Tobacco Use Types Packs/Day Years Used Date Former Smoker 09 01 Quit: 02/08/20 12 Smokeless Tobacco: Never Used Alcohol Use Drinks/Week oz/Week Comments No Sex Assigned at Date Recorded Not on file Last Filed Vital Signs Not on file Plan of Treatment Not on file Implants Implanted Type Area Forming Tube Selector Device Shelf Model / Identifier Expiration Serial / Lot Date Grft Hemshld Dbl Ovidio 0.3x3.0in [id number] - [id number] Graft /Pa Right: GETINGE 03/02/2022 [id number] / Implanted: Qty: 1 on 10/21/2017 by Max Seo MD at [facility] Ne[place] IND:SARIKA:CV [id number] / [id number] Description:HEMASHIELD KNITTED DOUBLE VE LOUR CARDIOVASCULAR FABRIC Results Not on fileafter 05/16/2019 Insurance Payer Benefit Plan / Subscriber ID Effective Dates Phone Addre ss Type Group [facility] - UNITED MEDICARE [id number] 2018-Present MEDICARE MGD CARE HMO Advance Directives For more information, please contact: [phone] Code Status Date Activated Date Inactivated Comments [...] by: Patient Name Relationship Healthcare Agent Relationship Co mmunication Yonatan Villar Health Care Agent [phone] ( Home) Max Villar Health Care Agent [phone] ( Home)
--- OUTSIDE RECORDS SUMMARY | 2020-05-16 18:53 | XMS REPORT | Continuity of Care Document ---
:1945 Author Organization [facility] t Address [address] [place] [address] [address] [place] [address] Care Team Providers Name Role Phone Roseann Pinto DO Primary Care Physician Brandon Hopson MD Attending Clinician Alfredo Nunez MD Attending Clinician [phone] Subhash CARTAGENA Attending Clinician Nick Dinero MD Attending Clinician Pedro Humphrey CRNA Attending Clinician CEFERINO FLYNN Attending Clinician Unavailable RENU TELLEZ Attending Clinician Unavailable JOZEF SEO Attending Clinician Unavailable CEFERINO FLYNN Admitting Clinician Unavailable RENU TELLEZ Admitting Clinician Unavailable JOZEF SEO Admitting Clinician Unavailable Payers Payer Name Policy Type Policy Effective Date Expiration Date Sour ce Number UHC MEDICAREUHC [id number] 2018 [place] MEDICARE 00:00:00 Denominational [id number] /08/2018-PresentHM O Problems Condition Condition Condition Status Onset Resolution Last Treating Co mments Source Name Details Category Date Date Treatment Clinician Date Persistent Persistent Disease Active 2019- [place] atrial atrial 0-21 [facility]i fibrillati fibrillati 00:00: st on on 00 Anemia Anemia Disease Active 2018- [facility] Center Carotid Carotid Disease Active 2019- [facility] stenosis, stenosis, 3- [facility] - left left 00:00: Medical 00 Center Carotid Carotid Disease Active [facility] artery artery 10-27 [facility] - stenosis stenosis 00:00: Medica l 00 Center Acute Acute Disease Active [facility] embolic embolic 02-08 [facility] - stroke stroke 00:00: Medical 00 [place] Weakness Weakness Disease [facility]: Medical 00 [place] Carotid Carotid Disease Active [facility] stenosis stenosis 02-07 [facility] - s/p s/p 00:00: Medical carotid carotid 00 Center endarterec endarterec mary mary Essential Essential Disease Active [facility] hypertensi hypertensi 10-22 Mallory kes - on on 00:00: Medical 00 [place] Right Right Disease Active [facility] carotid carotid 3 [facility] - artery artery 00:00: Medical occlusion occlusion 00 Cent er Unsteady Unsteady Problem Active [facility] gait gait [facility] Benign Benign Problem Active [facility] essential essential [facility] - HTN HTN [facility] Allergic Allergic Problem Active [facility] rhinitis rhinitis [facility] Hyperlipid Hyperlipid Problem Active [facility] emia emia [facility] Migraine Migraine Problem Active [facility] without without [facility] - status status Memoria migrainosu migrainosu l s, not s, not Outpati intractabl intractabl en t e, e, Clinics unspecifie unspecifie d migraine d migraine type type Tinnitus Tinnitus Problem Active [facility] of right of right [facility] - ear ear [facility] Medication Medication Problem Active [facility] monitoring monitoring Mallory kes - encounter encounter Miguel nallely l [facility] History of History of Problem Active [facility] stroke stroke [facility] - associated associated Me moria with blood with blood l clotting clotting Outpat i tendency tendency ent Clinics Varicose Varicose Problem Active [facility] veins veins [facility]ics Osteoarthr Osteoarthr Problem Active [facility] itis of itis of [facility] - multiple multiple Memori a joints joints l [facility]ics Depression Depression Problem Active [facility] with with [facility] - anxiety anxiety [facility] Arterioscl Arterioscl Problem Active [facility] erotic erotic [facility] - coronary coronary Memori a artery artery l disease disease [facility] Atrial Atrial Problem Active [facility] fibrillati fibrillati Mallory kes - on on [facility] Osteoporos Osteoporos Problem Active [facility] is is [facility] Vitamin D Vitamin D Problem Active [facility] deficiency deficiency Mlalory kes - [facility]oria [facility] Seasonal Seasonal Problem Active [facility] allergic allergic [facility] - rhinitis, rhinitis, Miguel nallely unspecifie unspecifie l d trigger d trigger Outp ati ent Clinics Carotid Carotid Disease Active [facility] artery artery [facility] - occlusion occlusion [facility] TIA TIA Disease Active [facility] (transient (transient Mallory kes - ischemic ischemic Medica l attack) attack) [place] Hyperlipid Hyperlipid Disease Active [facility] emia emia [facility] Hypertensi Hypertensi Disease Active [facility] on on [facility] Coronary Coronary Disease Active [facility] artery artery [facility] - disease disease [facility] CHF CHF Disease Active [facility] (congestiv (congestiv Mallory kes - e heart e heart Medical failure) failure) [place] Atrial Atrial Disease Active [facility] fibrillati fibrillati Mallory kes - on on [facility] Stroke Stroke Disease Active [facility] S/P S/P Disease Active Overview: [facility] carotid carotid right [facility] - endarterec endarterec [facility] Allergies, Adverse Reactions, Alerts Allergy Allergy Status Severity Reaction(s) Onset Inactive Treating Comm ents Source Name Type Date Date Clinician Morphine Propensi Active Hallucinatio 2018-08 [place] ty to ns 0-17 Methodi adverse 00:00: st reaction 00 s to drug Penicill Propensi Active Other (See 2018-08 Severe [place] ins ty to Comments) 0-17 mouth Methodi adverse 00:00: rash as a st reaction 00 child s to drug Prometha Propensi Active Hallucinatio 2018-08 Cory wolf ty to ns 0-17 Methodi adverse 00:00: st reaction 00 s to drug Morphine Propensi Active Other (See Pt. [facility] ty to Comments) 7-[address] [facility] - adverse 00:00: has Medical reaction 00 severe Center s hallucina tions when given medicatio n Penicill Propensi Active Hives Pt. [facility] ins ty to 02-07 States [facility] - adverse 00:00: breaks Medical reaction 00 out in Center s hives; cannot recall the severity since first reaction was during childhood Prometha Propensi Active Other (See Pt has [facility] zine-Phe ty to Comments) 02-07 hallucina Mallory kes - nylephri adverse 00:00: tions Medical ne reaction 00 when Center s given medicatio ns Morphine Propensi Active [facility] ty to 3-20 [facility] - adverse 00:00: Medical reaction 00 Center s Prometha Propensi Active [facility] zine-Dm ty to 3-20 [facility] - adverse 00:00: Medical reaction 00 Center s MORPHINE Adverse Active Info Not [facility] Reaction Available [facility] Phenerga Adverse Active Info Not [facility] n Reaction Available [facility] Family History Family Member Diagnosis Comments Start Date Stop Date Source Natural father Cancer [facility] Natural mother Cancer [facility] Paternal grandmother Heart disease [place] Denominational Social History Social Habit Start Date Stop Date Quantity Comments Source History of tobacco Current smoker [place] Denominational use History [facility] Meth odist Alcohol Std Drinks History [facility] Meth odist Alcohol Binge Sex Assigned At [facility] ethodist Tobacco use and 2019-07-05 2019-07-05 Never used [facility] ethodist exposure 00:00:00 00:00:00 Alcohol intake 2019-07-05 2019-07-05 Lifetime [facility] thodist 00:00:00 00:00:00 non-drinker (finding) History SDOH 2019-05-23 2019-05-23 1 [place] Meth odist Alcohol Frequency 00:00:00 00:00:00 Tobacco Comment 2019-05-23 2019-05-23 Quit 10 years [place]ational 00:00:00 00:00:00 ago Cigarettes smoked 2018-11-15 2018-11-[address] [facility] - current (pack per 00:00:00 00:00:00 Medical Center day) - Reported Cigarette 2018-11-15 2018-11-[address] [facility] - pack-years 00:00:00 00:00:00 Medical Center Smoking Status Start Date Stop Date Source Former smoker 2019-07-05 00:00:00 2019-07-05 00:00:00 [place] Denominational Medications Ordered Filled Start Stop Current Ordering Indication Dosage Frequency Signature Comments Components Source Medication Medication Date Date Medication? Clinician (SIG) Name Name apixaban 2018-08- No 5mg Q.5D Take 5 mg Alanna ston (ELIQUIS) 5 08-24 by mouth 2 M ethodi mg tablet 11:29: 00:00 (two) st 15 :00 times a day. sotalol 2018-08 Yes 40mg Q.5D Take 40 mg [place] (BETAPACE) - by mouth 2 Met hodi 80 MG 11:29: (two) st tablet 12 times a day. atorvastati 2018-08 Yes 80mg QD Take 80 mg Ray n (LIPITOR) 08-24 by mouth Meth giselle 80 MG 11:29: daily. st tablet 12 furosemide 2018-08 Yes 20mg QD Take 20 mg [place] (LASIX) 20 08-24 by mouth Metho di mg tablet 11:29: daily. st 12 traMADol 2018-08- No acute pain 50mg Q6H Take 50 mg Ray (ULTRAM) 50 08-24 by mouth Met hodi mg tablet 10:14: 00:[address] 57 :00 (six) hours as needed for moderate pain .Acute Pain. apixaban 2018-08 Yes 2.5mg Q.5D Take 1 [place] (ELIQUIS) 08-24 tablet Methodi 2.5 mg 00:00: (2.[address] tablet 00 total) by mouth 2 (two) times a day. traMADol 2018-08- No acute pain 50mg Q6H Take 1 Ray (ULTRAM) 50 08-24 tablet (50 M ethodi mg tablet 00:00: 23:59 mg total) st 00 :00 by mouth every 6 (six) hours as needed for moderate pain for up to 30 days .Acute Pain. potassium 2018-08- No 20meq QD Take 1 [place] chloride 0-25 05- tablet (20 Meth giselle (KLOR-CON 00:00: 23:59 mEq total) s t M20) 20 MEQ 00 :00 by mouth CR tablet daily. ferrous 2018-08- No 325mg QD Take 1 [place] sulfate 325 0- 11- tablet Metho di (65 FE) MG 00:00: 00:00 ([address] tablet 00 :00 total) by mouth daily with breakfast. pantoprazol 2018-08- No 40mg QD Take 1 Alanna ston e - tablet (40 Methodi (PROTONIX) 00:00: 00:00 mg total) s t 40 MG EC 00 :00 by mouth tablet daily. ferrous 2018-08- No 325mg QD Take 325 [place] sulfate 325 0-22 10-22 mg by Method i (65 FE) MG 15:25: 00:[address] tablet 33 :00 daily with breakfast. potassium 2018-08- No 1{tbl} QD Take 1 Alanna ston chloride 0-24 05- tablet by Metho di (KLOR-CON 15:25: 00:[address] M20 ORAL) 33 :00 daily. acetaminoph 2018-08- No 650mg Q6H Take 2 [place] en 06-24 tablets Methodi (TYLENOL) 00:00: 00:00 ([address] 325 MG 00 :00 total) by tablet mouth every 6 (six) hours as needed for moderate pain for up to 30 days. sucralfate 2018-08- No 1g [id number] Take 1 Ray (CARAFATE) 06-23 [id number] tablet (1 Methodi 1 gram 00:00: 00:00 3D g total) st tablet 00 :00 by mouth 3 (three) times a day before meals. Flonase Flonase Yes Na Pinto [address] [facility] 03-28 each [facility] - 00:00: nostril [facility]oria 00 l [facility] Cetirizine Cetirizine 2018- Yes Na Pinto [address] HCl HCl 03-28 [facility] - 00:00: Memoria 00 l [facility] Bactrim DS Bactrim DS 2018- No Na Pinto [address] [facility] 03-28 [facility] - 00:00: 00:00 Memoria 00 :00 l [facility] atorvastati 2018- Yes 80mg QD Take [address] n (LIPITOR) 4-15 by mouth Luke s - 40 MG 11:11: daily . Medical tablet 17 Center aspirin 81 2018- Yes 81mg QD Take [address] MG EC 4-15 by mouth [facility] - tablet 11:11: daily. Medical 17 Center furosemide 0 Yes 20mg Q.5D Take [address] (LASIX) 20 4-15 by mouth 2 Charbel es - MG tablet 11:11: (two) Medical 17 times Center daily. potassium Yes 20meq QD Take [address] chloride 4-15 mEq by [facility]ukes - (KLOR-CON) 11:11: mouth Medica l 20 mEq 17 daily. Center packet irbesartan Yes 150mg QD Take [address] (AVAPRO) 4-15 mg by [facility] - 150 MG 11:11: mouth Medical tablet 17 nightly. Center nitroglycer Yes .4mg Place 0.[address] in 4-15 mg under [facility] - (NITROSTAT) 11:11: the tongue Medical 0.4 MG SL 17 every 5 Center tablet (five) minutes as needed for Chest pain Put 1 pill under tongue every 5min as needed for chest pain.No more than 3 doses in 15min.Call 911 if pain is unrelieved 5min after 1st dose . traMADol Yes 50mg Take [address] (ULTRAM) 50 4-12 by mouth Luke s - mg tablet 00:00: every 8 Medic al 00 (eight) Center hours as needed. famotidine Yes 20mg QD Take 1 [facility] (PEPCID) 20 3-30 tablet (20 Mallory kes - MG tablet 00:00: mg total) Med ical 00 by mouth Center daily. COMBIVENT 20190 Yes INL [address] RESPIMAT 3-08 PO 2 TO 3 [facility] - 20-100 00:00: TIMES QD Medical mcg/actuati 00 PRN Center on Mist inhaler apixaban 2017-0 Yes 5mg Q.5D Take [address] (ELIQUIS) 5 7-14 tablet (5 [place] - mg Tab 00:00: mg total) Medica l tablet 00 by mouth 2 Center (two) times daily. Folic Acid Folic Acid Yes Na Pinto not [facility] defined [facility] Nitroglycer Nitroglycer Yes Na Pinto not [facility] in in defined [facility] Eliquis Eliquis Yes Na Pinto not [facility] defined [facility] Lasix Lasix Yes Na Pinto [address] [facility] Tramadol Tramadol Yes Na Pinto [address] HCl HCl as needed [facility] Lipitor Lipitor Yes Na Pinto [address] [facility]ics Atorvastati Atorvastati Yes Na Pinto not [facility] n Calcium n Calcium defined Mallory kes - Memoria [facility] Immunizations Ordered Filled Immunization Date Status Comments Sourc e Immunization Name Name FluAD FluAD 2018-06-[address] [facility] - 00:00:00 [facility] Vital Signs Vital Name Observation Time Observation Value Comments Source Systolic blood 2019-06-24 07:41:15 99 mm[Hg] [place] Denominational pressure Diastolic blood 2019-06-24 07:41:15 71 mm[Hg] [place] Denominational pressure Heart rate 2019-06-24 07:41:15 57 /min Cory Courtney Body temperature 2019-06-24 07:41:15 36.39 Loly Elizabeth triston Denominational Respiratory rate 2019-06-24 07:41:15 16 /min Elizabeth goldstein Denominational Oxygen saturation in 2019-06-24 07:41:15 90 /min Cory Courtney Arterial blood by Pulse oximetry Body height 2019-06-24 04:00:00 157.5 cm Cory Courtney Body weight 2019-06-24 04:00:00 79.878 kg Cory Courtney BMI 2019-06-24 04:00:00 32.21 kg/m2 Cory Courtney Procedures Procedure Date / Time Performing Clinician Source Performed POC GLUCOSE 2019-06-24 07:43:00 Parminder Hopson Ray ethodist POC GLUCOSE 2019-06-24 06:53:00 Parminder Hopson ethodist MAGNESIUM LEVEL 2019-06-24 06:22:00 Parminder Hopson ethodist HC COMPLETE BLD COUNT 2019-06-24 06:22:00 Parminder Hopsonu melina Denominational W/AUTO DIFF ESTIMATED GFR 2019-06-24 06:22:00 Parminder Hopson ethodist BASIC METABOLIC PANEL 2019-06-24 06:22:00 Parminder Hopson melina Denominational ECG PRE/POST OP 2019-06-24 04:54:27 Parminder Hopson ethodist POC GLUCOSE 2019-06-23 22:11:00 Parminder Hopson ethodist BASIC METABOLIC PANEL 2019-06-23 15:23:00 Parminder Hopson tamijeremy Denominational ESTIMATED GFR 2019-06-23 15:23:00 Parminder Hopson ethodist MAGNESIUM LEVEL 2019-06-23 15:23:00 Parminder Hopson ethodist ECG 12-LEAD 2019-06-23 15:21:21 Parminder Hopson ethodist XR CHEST 1 VW PORTABLE 2019-06-23 15:20:00 Parminder Hopson ti Denominational TRANSESOPHAGEAL ECHO 2019-06-23 14:44:00 Parminder Hopson triston Denominational DURING CATH CV LEFT ATRIAL APPENDAGE 2019-06-23 14:44:00 Parminder Hopson Denominational CLOSURE ANESTHESIA HENNA 2019-06-23 14:10:38 Tomasz Nunez Alfredo IN AN ELECTIVE 2019-06-23 13:44:01 Milagros Cullen hodist ENDOTRACHEAL AIRWAY TYPE AND SCREEN 2019-06-23 11:26:00 Parminder Hopson ethodist ESTIMATED GFR 2019-06-23 11:15:00 Parminder Hopson ethodist POC PANEL 2019-06-23 11:15:00 Parminder Hopson ethodist TROPONIN 2019-05-24 11:20:00 Abby Grimes CREATINE KINASE, TOTAL 2019-05-24 11:20:00 Abby Grimes (CPK) XR CHEST 1 VW PORTABLE 2019-05-24 06:32:00 Paulina Blanc COMPLETE BLD COUNT 2019-05-24 05:54:00 [place], Karley-Bk [place] Den[place] W/AUTO DIFF Janene B NATRIURETIC PEPTIDE 2019-05-24 05:54:00 Paulina Blanc Denominational Janene MAGNESIUM LEVEL 2019-05-24 05:54:00 Paulina Blanc Meth odist Janene PHOSPHORUS LEVEL 2019-05-24 05:54:00 Paulina Blanc Met hodist Janene TROPONIN 2019-05-24 05:54:00 Paulina Blanc odtanya Janene PROTHROMBIN TIME WITH INR 2019-05-24 05:54:00 Paulina Blanc Denominational Janene PARTIAL THROMBOPLASTIN 2019-05-24 05:54:00 Paulina Blanc on Denominational TIME (PTT) Janene CREATINE KINASE, TOTAL 2019-05-24 05:54:00 Paulina Blanc on Denominational (CPK) Janene ECG 12-LEAD 2019-05-24 05:08:09 Parminder Hopson ethodist ECG 12-LEAD 2019-05-24 03:55:59 Parminder Hopson ethodist HC COMPLETE BLD COUNT 2019-05-24 00:21:00 Parminder Hopson Alanna summers Denominational W/AUTO DIFF BASIC METABOLIC PANEL 2019-05-24 00:21:00 Parminder Hopsonciro summers Denominational PROTHROMBIN TIME WITH INR 2019-05-24 00:21:00 Parminder Hopson Denominational MAGNESIUM LEVEL 2019-05-24 00:21:00 Parminder Hopson ethodist ESTIMATED GFR 2019-05-24 00:21:00 Parminder Hopson ethodist ECG 12-LEAD 2019-05-23 17:55:35 Parminder Hopson ethodist EP COMPLETE EP STUDY W 2019-05-23 17:31:00 Parminder Hopson ABLATION PULMONARY VEIN ACTIVATED CLOTTING TIME 2019-05-23 17:29:00 Emiliana Parminder Hensonrain Arredondo [place] Denominational GLUCOSE LEVEL, SYRINGE 2019-05-23 17:15:00 Emiliana Parminder Brandon luke Denominational HEMOGLOBIN, SYRINGE 2019-05-23 17:15:00 Parminder Hopson [place] Denominational IONIZED CALCIUM, ARTERIAL 2019-05-23 17:15:00 Parminder Hopson Denominational ARTERIAL BLOOD GAS, 2019-05-23 17:15:00 Parminder Hopson [place] Denominational CORRECTED POTASSIUM, SYRINGE 2019-05-23 17:15:00 Parminder Hopson Silvestre n Denominational SODIUM LEVEL, SYRINGE 2019-05-23 17:15:00 Parminder Hopsonu ston Denominational ACTIVATED CLOTTING TIME 2019-05-23 15:33:00 Parminder Hopson sandra Denominational ACTIVATED CLOTTING TIME 2019-05-23 14:52:00 Parminder Hopson sandra Denominational ARTERIAL LINE 2019-05-23 14:20:27 Sanket Humphrey IN AN ELECTIVE 2019-05-23 14:19:50 Sanket Humphrey ENDOTRACHEAL AIRWAY ESTIMATED GFR 2019-05-23 10:19:00 Parminder Hopson ethodist POC PANEL 2019-05-23 10:19:00 Parminder Hopson ethodist TYPE AND SCREEN 2019-05-23 10:04:00 Parminder Hopson ethodist ECG PRE/POST OP 2019-05-23 09:41:45 Parminder Hopson ethodist Plan of Care Planned Activity Planned Date Details Comments Source Future Scheduled 2020-03-03 INFLUENZA VACCINE Silvestre luna Denominational Test 00:00:00 [code = INFLUENZA VACCINE] Future Scheduled 2011-10-06 65+ PNEUMOCOCCAL Cory Denominational Test 00:00:00 VACCINE (1 of 1 - PPSV23) [code = 65+ PNEUMOCOCCAL VACCINE (1 of 1 - PPSV23)] Future Scheduled 1996 BREAST CANCER [facility] thodist Test 00:00:00 SCREENING [code = BREAST CANCER SCREENING] Future Scheduled 1996 COLONOSCOPY SCREENING Jarod luke Denominational Test 00:00:00 [code = COLONOSCOPY SCREENING] Future Scheduled 1996 SHINGLES VACCINES (#1) Arnulfo flores Denominational Test 00:00:00 [code = SHINGLES VACCINES (#1)] Future Scheduled 1956 DIABETIC FOOT EXAM [place] Denominational Test 00:00:00 [code = DIABETIC FOOT EXAM] Future Scheduled 1955 URINE MICROALBUMIN [place] Denominational Test 00:00:00 [code = URINE MICROALBUMIN] Future Scheduled 1945 DIABETIC RETINAL EYE Alanna ston Denominational Test 00:00:00 EXAM [code = DIABETIC RETINAL EYE EXAM] Encounters Start End Encounter Admission Attending Care Care Encounter Source Date/Time Date/Time Type Type Clinicians Facility Department ID 2019-08-12 2019-08-12 [facility] [id number] [facility] 11:43:00 11:43:00 t [employer] [facility] 2019-03-28 2019-03-28 [facility] [id number] 15:20:00 15:20:00 t [employer] [place] [facility] 2018-12-13 2018-12-13 [facility] [id number] 10:00:00 10:00:00 t [facility] - and [facility] ent Clinics 2018-06-22 2018-06-22 [facility] [id number] 14:15:00 14:15:00 [employer] [facility] Results Test Test Test Results Result Source Description Time Comments Comments 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 Aborted Watchman implant.2. Intracardiac echocardiogram.3. Ultrasound-guided vascular access.PREOPERATIVE DIAGNOSES:1. Atrial fibrillation, status post pulmonary vein ablation.2. Recurrent gastrointestinal bleed.3. Diastolic related congestive heart failure.4. Hypertension.5. Coronary artery disease.6. History of multiple strokes.POSTOPERATIVE DIAGNOSES:As above.HISTORY OF PRESENT ILLNESS:The patient is a 73-year-old female with the above-noted history, who wasreferred for a left atrial appendage closure device with Watchman implant giventhe risk of stroke with a high CHADS-VASc score, and a recurrentgastrointestinal bleed with a high HAS-BLED score.PROCEDURE IN DETAIL:The patient was brought to the procedure room in a fasting state. Informedconsent was obtained. The patient was prepped and draped in the usual fashion. General anesthesia was used for the procedure. Preprocedure HENNA was donedemonstrating a small left atrial appendage by HENNA. Decision was made to assessleft atrial appendage ostium by fluoroscopy and left atrial appendageangiography. Ultrasound-guided vascular access was obtained of the rightfemoral vein. A 9-Botswanan sheath was placed via which an intracardiacechocardiogram was advanced and used to assist with transseptal puncture. Atransseptal sheath was advanced and the fossa ovalis was engaged. Transseptalpuncture was performed with application of Bovie. We then used a pigtailcatheter to engage the left atrial appendage. Multiple injections were done viaboth the pigtail and the introducer sheath demonstrating a chicken wing leftatrial appendage with a very narrow ostium as well as a very narrow opening ofthe individual lobe of the left atrial appendage, hence even the smallestWatchman device would be too large. Furthermore, we were unable to get theappropriate depth to deliver such a device. Hence, the decision was made toabort the procedure. No evidence of pericardial effusion at the end of thecase. The patient tolerated the procedure well with no hemodynamic, neurologic,or respiratory sequelae.CONCLUSION:Aborted a Watchman implant due to small ostial size and changing chicken wingmorphology with narrow opening of the individual lobes with resultant inabilityto engage an introducer sheath to achieve depth as well as a concern forexcessive compression with even the smallest device.RECOMMENDATIONS:The patient will continue on anticoagulation for the time being, and alternativeoptions can be considered in the future including left atrial appendage clip. ECG Pre/Post Op-Tomorrow 2019-06-24 16:50:49 Test Item Value Reference Range Interpretation Comme nts Ventricular rate (test code = 253) 54 Atrial rate (test code = 255) 54 IN interval (test code = 266) 136 QRSD interval (test code = 260) 68 QT interval (test code = 264) 494 QTC interval (test code = 265) 468 P axis 1 (test code = 267) 10 QRS axis 1 (test code = 268) -17 T wave axis (test code = 270) 12 EKG impression (test code = 273) Sinus bradycardia-Cannot rule out Anterior infarct , age undetermined-Abnormal ECG- Cory CourtneyECG 12 [id number] 12:06:41 Test Item Value Reference Range Interpretation Comments Ventricular rate (test 66 code = 253) Atrial rate (test code = 66 255) IN interval (test code = 158 266) QRSD interval (test code 74 = 260) QT interval (test code = 452 264) QTC interval (test code 473 = 265) P axis 1 (test code = 57 267) QRS axis 1 (test code = -8 268) T wave axis (test code = 21 270) EKG impression (test Sinus rhythm with code = 273) premature atrial complexes-Otherwise normal ECG- [facility] MethodistBasic metabolic [id number] 08:59:00 Test Item Value Reference Range Interpretation Comments Sodium (test code = 136 135- 148 mEq/L 2951-2) Potassium (test code = 4.4 3.5- 5.0 mEq/L 2823-3) Chloride (test code = 102 98- 112 mEq/L 2075-0) CO2 (test code = 2028-9) 23 24- 31 mEq/L L Anion gap (test code = 11@ANIO 7- 15 mEq/L 33904-8) BUN (test code = 3094-0) 14 mg/dL 8-23 Creatinine (test code = 1.05 mg/dL 0.5-0.9 H 2160-0) Glucose (test code = 84 mg/dL 65-99 2345-7) Calcium (test code = 9.4 mg/dL 8.8-10.2 63316-0) SILVIA (test code = SILVIA) BMP added per Rodrigue Gongora at 08:43 06/24/19 by [email or web address] Lab Interpretation (test Abnormal code = 59021-3) [facility] MethodistMagnesium [id number] 08:59:00 Test Item Value Reference Range Interpretation Comments Magnesium (test code = 2.0 mg/dL 1.6-2.4 65900-7) SILVIA (test code = SILVIA) BMP added per Rodrigue Gongora at 08:43 06/24/19 by [email or web address] [facility] MethodistEstimated [id number] 08:59:00 Test Item Value Reference Range Interpretation Comments Estimated GFR (test 53 mL/min/1.73 m2 A Yoseph johnson Units code = 5488) InterpretationG 1 >=90 Nor mal or highG2 60-89 Mildly decrea sedG3a 45-59 Mildly to moder ately rhjrmmldgM5o 30-44 Modera tely to severely decreasedG4 15-29 Severe ly decreasedG5 <15 Kidney failureThe eGFR was calculated jose malcolm the Chronic Kidney Disease Epidemi ology Collaboration (CKD-EPI) equat ion. Interpretation is based on recommendations of the National dney [facility]-Kidn ey Disease Outcome s Quality Initiat juice (NKF-KDOQI) pub lished in 2013. SILVIA (test code = BMP added per SILVIA) Rodrigue Gongora at 08:43 06/24/19 by [email or web address] Lab Interpretation Abnormal (test code = 56463-2) [facility] MethodistCBC with platelet and kqgwycqaowmg0265-57-52 08:20:20 Test Item Value Reference Range Interpretation Comments WBC (test code = 4.13 4.50- 11.00 k/uL L 13969-5) RBC (test code = 3.60 m/uL 4.2-5.5 L 57932-6) HGB (test code = 718-7) 8.5 g/dL 12-16 L HCT (test code = 4544-3) 29.7 % 37-47 L MCV (test code = 787-2) 82.5 fL 82-100 MCH (test code = 785-6) 23.6 pg 27-34 L MCHC (test code = 786-4) 28.6 g/dL 31-37 L RDW - SD (test code = 53.0 fL 37-55 83630-1) MPV (test code = SEE COMMENT 8.8-13.2 No report 80521-2) Platelet count (test 120 150- 400 k/uL L code = 31304-2) Nucleated RBC (test code 0.00 /100 WBC = 97976-0) Neutrophils (test code = 58.1 % 39-69 64713-2) Lymphocytes (test code = 25.7 % 25-45 82371-1) Monocytes (test code = 9.4 % 0-10 84016-1) Eosinophils (test code = 5.6 % 0-5 H 52349-9) Basophils (test code = 1.0 % 0-1 83696-7) Immature granulocytes 0.2 % 0-1 "Immat ure (test code = 80822-3) granul ocytes" (promyelocytes, myelocytes, metamyelocytes) Lab Interpretation (test Abnormal code = 88933-3) [facility] [id number] 07:43:58 Test Item Value Reference Range Interpretation Comments POC glucose (test code = 108 mg/dL 65-99 H [facility] Notified 52719-6) RNMeter ID: [id number] tor: Truchasitynicole Daniel Lab Interpretation (test Abnormal code = 90552-8) [place] MethodistXR Chest 1 Vw Tcxfcnzi7318-77-60 15:30:58Hm Interface, Radiology Results Incoming - 06/23/2019 3:34 PM CSTEXAMINATION: XR CHEST 1 VW PORTABLECLINICAL HISTORY: post watchman implantCOMPARISON: May 24, 2019IMPRESSION:Shoulder prosthesisnoted on the left.There is cardiomegaly. Thoracic aorta is tortuous but not dilated. Pulmonary vasculature is mildly prominent more on the right than the left. No focal infiltrate. Reticular pattern to the lung palomino has decreased since the reference exam. HMH-SE41SDWY [facility] AreaFwjktfrmiGPX6663-28-76 14:10:38Tomasz Nunez MD 06/23/2019 4:49 PMProcedure Performed: HENNA Start Time: 06/23/2019 1:45 PM End Time: Preanesthesia Checklist:Patient identified, IV assessed, risks and benefits discussed, monitors and equipment assessed, procedure being performed at surgeon's request, anesthesia consent obtained. General Procedure InformationDiagnostic Indications for Echo: assessment ofsurgical repair and hemodynamic monitoringPhysician Requesting Echo: Parminder Hopson MDLocation performed: ORIntubatedBite block placedHeart visualizedProbe Insertion: EasyProbe Type: MultiplaneModalities: Color flow mapping, continuous wave Doppler and pulse wave Doppler Echocardiographic andDoppler Measurements Ventricles Right Ventricle:Cavity size normal. Hypertrophy not present. Thromb us not present. Global function normal. Left Ventricle:Cavity size normal. Hypertrophy present. Thrombus not present. Global Function normal. Ejection Fraction 60%. Valves Aortic Valve:Annulus normal. Stenosis not present. Regurgitation absent. Mitral Valve:Annulus normal. Stenosis mild. Regurgitation absent. Tricuspid Valve:Annulus normal. Stenosis not present. Regurgitation absent. Leaflets normal. Aorta Ascending Aorta:Size normal. Diameter 3.8 cm. Dissection not present. Plaque thickness less than 3 mm. Aortic Arch:Size normal. Dissection not present. Plaque thickness less than 3 mm. Descending Aorta:Size normal. Dissection not present. Plaque thickness less than 3 mm. Atria Right Atrium:Size normal. Spontaneous echo contrast not present. Thrombus not present. Tumor not present. Device not present. Left Atrium:Size dilated. Spontaneous echo contrast present. Thrombus not present. Tumor not present. Device not present. Left atrial appendage normal. Other FindingsPericardium: normal Anesthesia InformationPerformed PersonallyAnesthesiologist: Tomasz Nunez MD Echocardiogram Comments: Pre Watchman HENNA!. Normal LV function2. Normal RV function3. LA dilation. RILEY appears small, no evidence of thrombus. 4. MV appears calcified, mean diastolic gradient 4mmHg5. Trivial TR6. Aortic valve is trileaflet, opens well7. Small anterior pericardial effusionHougaebler children's center TikovqlgaRahjkk4153-26-39 13:44:01Tomasz Nunez MD 06/23/2019 4:49 PMAirwayDate/Time: 06/23/2019 1:30 PMPerformed by: Milagros Cullen CRNAAuthorized by: Tomasz Rick MD Location: ORUrgency: ElectiveDifficult Airway: No Anesthesiologist: Tomasz Nunez MDResident/MANAGER CLIENT SERVICE/AA: Milagros Cullen CRNAPerformed by: resident/MANAGER CLIENT SERVICE/AAPreoxygenated with 100% O2: Yes C- spine Precautions Maintained Throughout: Yes Mask Ventilation: Easy maskFinal Airway Type: Endotracheal airwayFinal Endotracheal Airway: ETTCuffed: Yes Technique Used: Direct laryngoscopyDevices/Methods Used in Placement: Intubating styletInsertion Site: OralBlade Type: MillerLaryngoscope Blade/Videolaryngoscope Blade Size: 2ETT Size (mm): 7.0Cuff at minimum occlusion pressure: Yes Measured from: LipsETT to Lips (cm): 22Placement Verified by: CO2 detection and direct visualization Laryngoscopic view: Grade I - full view of glottisRapid Sequence Induction (RSI): No Modified RSI: No Number of Attempts at Approach: 1 Atraumatic.Cory MethodistType and screen 2019-06-23 12:30:00 Test Item Value Reference Range Interpretation Comments ABO grouping (test code = 883-9) A Rh type (test code = 82301-9) POS Antibody screen (gel) (test code = NEG 890-4) [place] MethodistPOC [id number] 11:17:41 Test Item Value Reference Range Interpretation Comments POC sodium (test code = 138 mmol/L 643-490 9063-0) POC potassium (test code 4.8 mmol/L 3.5-5 = 6298-4) POC chloride (test code = 105 mmol/L 99-109 2069-3) POC CO2 (test code = 27 mmol/L 24-31 01051-1) POC glucose (test code = 90 mg/dL 65-99 2339-0) POC BUN (test code = 13 mg/dL 8-24 6299-2) POC creatinine (test code 0.9 mg/dl 0.5-0.9 = 98542-9) POC hematocrit (test code 31 % 37-47 L = 4544-3) POC anion gap (test code 12 mmol/L 8-20 Met er ID: = [id number]) [id number]: Delmis Paulino Lab Interpretation (test Abnormal code = 66897-4) [place] MethodistElectrophysiology kwiqmmlqg2194-61-01 14:56:20PRIMARY PAINTING WORKER:Parminder Hopson.COMPLICATIONS:None.ESTIMATED BLOOD LOSS:10 mL.SPECIMEN REMOVED:None.ANESTHESIA:General.PROCEDURES PERFORMED:1. Atrial fibrillation ablation with pulmonary vein isolation.2. Extrapulmonary ablation with posterior wall isolation.3. Intracardiac echocardiogram.4. 3D mapping.5. Pharmacologic drug infusion.6. Ultrasound-guided vascular access.PREOPERATIVE DIAGNOSES:1. Persistent atrial fibrillation.2. Diastolic related congestive heart failure.3. Coronary artery disease.4. Hypertension.5. Prior strokes.POSTOPERATIVE DIAGNOSES:1. Persistent atrial fibrillation.2. Diastolic related congestive heart failure.3. Coronary artery disease.4. Hypertension.5. Prior stro kes.HISTORY OF PRESENT ILLNESS:The patient is a 73-year-old female with history of drug refractory, drugintolerant atrial fibrillation, was referred for an EP study and ablation.PROCEDURE IN DETAIL:Thepatient was brought to the EP lab in a fasting state. Informed consent wasobtained. The patient was prepped and draped in the usual sterile fashion. Ultrasound-guided vascular access obtained in the right femoral vein. Cathetersadvanced including decapolar catheter placed in coronary sinus with greatdifficulty. Intracardiac echocardiogram, which was used to exclude left atrialappendage clot, monitor catheter positioning, monitor pericardial effusion, andrecreate 3D geometry, and assist with transseptal puncture. Heparin bolus wasgiven immediately after vascular access. Transseptal puncture was successfullyperformed. Baseline 3D geometry and voltage map was done. Widercircumferential ablation was then done of the left pulmonary veins and then theright pulmonary veins. Extrapulmonary vein a blation performed along the LAfloor, LA roof and targeted posterior wall ablation as needed to achieveposterior wall isolation with entrance and exit block. We then did programmedatrial stimulation with up to double atrial stimuli with no induced arrhythmias. We did not use isoproterenol due to interm ittent issues with hypotension. Noevidence of pericardial effusion at the end of the case.FINDINGS:Mean LA pressure was 18 mmHg. AV Wenckebach achieved at 300 milliseconds. AVnode and atrial ERP tfe294 milliseconds at drive train of 600 milliseconds. Catheter ablation was performed using medel between 45 to 50 bertrand with contactforce between 7 and 35 grams. Duration of lesions were limited to 4to 6seconds along the posterior wall and up to 8 to 10 seconds in the remainder ofthe atrium.CONCLUSION:1. Successful pulmonary vein isolation of the left pulmonary veins, rightpulmonary veins.2. Extra pulmonary vein ablation performed with posterior wall isolation.3. No induced arrhythmias with agg ressive double atrial stimulation.RECOMMENDATIONS:The patient will complete the appropriate postprocedure wound care and activityrestriction.ADDENDUM: The patient had a very challenging CS cannulation.Cory MethodistTroponin 2019-05-24 12:29:26 Test Item Value Reference Range Interpretation Comments Troponin (test code = 3.893 ng/mL 0-0.04 Silvestre luna [facility] 06249-3) Laboratories ch anged methodology effective: 2018 at 10:00 amThe new method has a 99 th percentile cuto ff of 0.040 ng/mL Lab Interpretation Abnormal (test code = 97187-3) [facility] MethodistCreatine kinase, total (CPK)2019-05-24 12:19:02 Test Item Value Reference Range Interpretation Comments Creatine kinase (test code = 2157-6) 113 U/L 26-192 Ray MethodistB natriuretic lbbggyq4843-91-37 07:36:44 Test Item Value Reference Range Interpretation Comments BNP (test code = 90701-4) 272 pg/mL 0-100 H SILVIA (test code = SILVIA) TROP results called to and read back by PRO DAVIS/WT20at 05/24/2019 07:10 by JOSE MANUEL.CPK added and read back to Kim Briggs in MMWT20 05/24/2019 07:29 LMID. Lab Interpretation (test Abnormal code = 51453-3) [facility] MethodistActivated clotting [id number] 06:54:39 Test Item Value Reference Range Interpretation Comments Activated clotting time 109 96- 152 sec Mete r ID: (test code = 5298) [id number] perator: Maria Teresa Au Cory MethodistPartial thromboplastin time, qalwtociv4842-61-64 06:45:53 Test Item Value Reference Range Interpretation Comments PTT (test code = 30.0 23.0- 36.0 [place] [address]-5) unfractionated heparin is61.0-112.0 se conds which corresponds to Anti-Xa0.3-0.7 U/ml. Ray MethodistProthrombin time with RAE3268-90-69 06:45:15 Test Item Value Reference Range Interpretation Comments Prothrombin time (test 15.3 11.5- 14.5 sec H code = 5902-2) INR (test code = 1.2 The Interna tional 84153-3) Normalized Rati o (INR) is a therapeuti c monitoring tool for patients who ar e stable on oral anticoagulant t herapy. An INR of 2.0-3 .0 is suggested for d eep vein thrombosis/pulm onary embolism. Lab Interpretation Abnormal (test code = 25508-9) [facility] MethodistPhosphorus [id number] 06:44:25 Test Item Value Reference Range Interpretation Comments Phosphorus (test code = 2777-1) 4.0 mg/dL 2.4-4.5 Ray MethodistArterial blood gas, dnntgwotd0949-67-19 17:22:32 Test Item Value Reference Range Interpretation Comments pH, arterial (test code = 2744-1) 7.36 7.35-7.45 pCO2, arterial (test code = 2019-) 40 35- 45 mmHg pO2, arterial (test code = 2703-7) 241 80- 90 mmHg H Temperature, Celsius (test code = 37.0 Degrees C 8310-5) O2 saturation, arterial (test code = 100 % 95-100 2708-6) pH, arterial corrected (test code = 7.36 43273-5) pCO2, arterial corrected (test code 40 mmHg = 72415-6) pO2, arterial corrected (test code = 241 mmHg 12070-9) Base excess, arterial (test code = -3 -2 - 2 mEq-L L 1925-7) Lab Interpretation (test code = Abnormal 81685-9) [facility] MethodistGlucose level, dqctmcx9588-49-65 17:22:32 Test Item Value Reference Range Interpretation Comments Glucose, syringe (test code = 97 mg/dL 65-99 2345-7) [facility] MethodistHemoglobin, [id number] 17:22:32 Test Item Value Reference Range Interpretation Comments Hemoglobin, syringe (test code = 7.8 g/dL 12-16 L 718-7) Lab Interpretation (test code = Abnormal 71550-3) [facility] MethodistIonized calcium, xnqoehem5878-44-07 17:22:32 Test Item Value Reference Range Interpretation Comments Ionized calcium, arterial (test 1.14 mmol/L 1.11-1.32 code = 31131-2) [facility] MethodistPotassium, ozamqmg4955-31-14 17:22:32 Test Item Value Reference Range Interpretation Comments Potassium, syringe (test code = 2007) 3.9 3.5- 5.0 mEq/L Cory OlmosistSodium level, skkrxsi4817-13-33 17:22:32 Test Item Value Reference Range Interpretation Comments Sodium, syringe (test code = 2947-0) 140 135- 148 mEq/L Cory MethodistArterial ckzh8805-02-33 14:20:27FoSanket chavez CRNA 05/23/2019 2:21 PMArterial linePerformed by: Sanket Humphrey CRNAAuthorized by: Vicky Dinero MD Patient Location: ORStaff: Anesthesiologist: Vicky Dinero MD Performed by: AnesthesiologistPre-procedure: patient identified, IV checked, site and side verified, risks and benefits discussed, procedure verified, surgical consent complete, patient position confirmed, monitors and equipment checked and pre-op evaluation complete MSBT: antiseptic used, all elements of maximal sterile barrier technique followed, hand hygiene performed, cap/gown used by other personnel and solutions labeled Indications: Indications: multiple ABGs and h emodynamic monitoring Anesthesia: Anesthesia: GeneralProcedure Details: Arterial Line placement: Placed post induction Line placement site: RadialLine placement side: Right Arterial line gauge: 20 GNumber of attempts: 1Ultrasound guidance used: No Post-procedure: Post-procedure: Sterile dressing applied Post procedure circulation, sensation, movement: Normal Patient tolerance: Patient tolerated the procedure well with no immediate complicationsMiami VdsxthqyhNmgvla5618-41-62 14:19:50FoSanket chavez CRNA 05/23/2019 2:21 PMAirwayPerformed by: Sanket Humphrey CRNAAut horized by: Vicky Dinero MD Location: ORUrgency: ElectiveDifficult Airway: No Resident/MANAGER CLIENT SERVICE/AA: Sanket Humphrey CRNAPerformed by: resident/MANAGER CLIENT SERVICE/AAPreoxygenated with 100% O2: No C-spine Precautions Maintained Throughout: No Mask Ventilation: Easy maskFinal Airway Type: Endotracheal airwayFinal Endotracheal Airway: ETTCuffed: Yes Technique Used: Direct laryngoscopyDevices/Methods Used in Placement: Intubating styletInsertion Site: OralBlade Type: MillerLaryngoscope Blade/Videolaryngoscope Blade Size: 2ETT Size (mm): 8.0Cuff at minimum occlusion pressure: Yes Measured from: GumsETT to Gums (cm): 23Placement Verified by: CO2 detection and direct visualizationLaryngoscopic view: Grade I - full view of glottisRapid Sequence Induction (RSI): No Modified RSI:No Number of Attempts at Approach: 1[facility] MethodistTISSUE [id number] 17:45:00Surgical Pathology Report Case: [id number] Authorizing Provider: Rick Flynn, Collected: 10/27/2018 0955 OrderingLocation: [facility] Received: 10/27/2018 1010 PERIOPERATIVE SERVICES Pathologist: Gilbert Anderson MD Specimen: Plaque, LEFT CAROTID PLAQUE ARTERY, LEFT CAROTID, ENDARTERECTOMY:CALCIFIC ATHEROSCLEROTIC PLAQUE Signing Pathologist Direct Phone Line: [phone] signed by Gilbert Anderson MD on 11/02/2018 at 5:45 [id number]; [id number] carotid stenosisLeft carotid plaqueThe specimen is received in a formalin-filled container and labeled with the patient's information and labeled "left carotid plaque" and consists of a calcified tubular shaped segment of tissue measuring 1.5 cm in length x 0.6 cm in diameter. Demo Specialist sections are submittedA1 for decal. CG/pl PerformedCBC W/PLT COUNT & AUTO [id number] 06:55:00 Test Item Value Reference Range Interpretation Comments WHITE BLOOD CELL COUNT (BEAKER) 4.6 K/ L 3.5-10.5 (test code = 775) RED BLOOD CELL COUNT (BEAKER) 3.30 M/ L 3.93-5.22 L (test code = 761) HEMOGLOBIN (BEAKER) (test code = 7.4 GM/DL 11.2-15.7 L 410) HEMATOCRIT (BEAKER) (test code = 25.6 % 34.1-44.9 L 411) MEAN CORPUSCULAR VOLUME (BEAKER) 77.6 fL 79.4-94.8 L (test code = 753) MEAN CORPUSCULAR HEMOGLOBIN 22.4 pg 25.6-32.2 L (BEAKER) (test code = 751) MEAN CORPUSCULAR HEMOGLOBIN CONC 28.9 GM/DL 32.2-35.5 L (BEAKER) (test code = 752) RED CELL DISTRIBUTION WIDTH 18.2 % 11.7-14.4 H (BEAKER) (test code = 412) PLATELET COUNT (BEAKER) (test 149 K/CU MM 150-450 L code = 756) MEAN PLATELET VOLUME (BEAKER) 12.9 fL 9.4-12.3 H (test code = 754) NUCLEATED RED BLOOD CELLS 0 /100 WBC 0-0 (BEAKER) (test code = 413) NEUTROPHILS RELATIVE PERCENT 58 % (BEAKER) (test code = 429) LYMPHOCYTES RELATIVE PERCENT 25 % (BEAKER) (test code = 430) MONOCYTES RELATIVE PERCENT 12 % (BEAKER) (test code = 431) EOSINOPHILS RELATIVE PERCENT 5 % (BEAKER) (test code = 432) BASOPHILS RELATIVE PERCENT 0 % (BEAKER) (test code = 437) NEUTROPHILS ABSOLUTE COUNT 2.66 K/ L 1.56-6.13 (BEAKER) (test code = 670) LYMPHOCYTES ABSOLUTE COUNT 1.12 K/ L 1.18-3.74 L (BEAKER) (test code = 414) MONOCYTES ABSOLUTE COUNT (BEAKER) 0.54 K/ L 0.24-0.36 H (test code = 415) EOSINOPHILS ABSOLUTE COUNT 0.21 K/ L 0.04-0.36 (BEAKER) (test code = 416) BASOPHILS ABSOLUTE COUNT (BEAKER) 0.02 K/ L 0.01-0.08 (test code = 417) IMMATURE GRANULOCYTES-RELATIVE 0 % 0-1 PERCENT (BEAKER) (test code = 2801) [id number] 06:04:00 Test Item Value Reference Range Interpretation Comments MAGNESIUM (BEAKER) (test code = 1.9 mg/dL 1.6-2.6 627) BASIC METABOLIC [id number] 06:04:00 Test Item Value Reference Range Interpretation Comments SODIUM (BEAKER) 135 meq/L 136-145 L (test code = 381) POTASSIUM (BEAKER) 3.3 meq/L 3.5-5.1 L (test code = 379) CHLORIDE (BEAKER) 103 meq/L 98-107 (test code = 382) CO2 (BEAKER) (test 23 meq/L 22-29 code = 355) BLOOD UREA NITROGEN 9 mg/dL 7-21 (BEAKER) (test code = 354) CREATININE (BEAKER) 0.84 mg/dL 0.57-1.25 (test code = 358) GLUCOSE RANDOM 87 mg/dL 70-105 (BEAKER) (test code = 652) CALCIUM (BEAKER) 8.2 mg/dL 8.4-10.2 L (test code = 697) EGFR (BEAKER) (test 67 mL/min/1.73 ESTIMA ENEDELIA GFR IS code = 1092) sq m NOT ACCURATE CREATININE CLEARANCE IN PREDICTING GLOMERULAR FILTRATION RATE . ESTIMATED GFR I S NOT APPLICABLE FOR DIALYSIS PATIEN TS. HEMOGLOBIN AND [id number] 14:48:00 Test Item Value Reference Range Interpretation Comments HEMOGLOBIN (BEAKER) (test code = 7.4 GM/DL 11.2-15.7 L 410) HEMATOCRIT (BEAKER) (test code = 25.9 % 34.1-44.9 L 411) BASIC METABOLIC [id number] 08:59:00 Test Item Value Reference Range Interpretation Comments SODIUM (BEAKER) 134 meq/L 136-145 L (test code = 381) POTASSIUM (BEAKER) 3.5 meq/L 3.5-5.1 (test code = 379) CHLORIDE (BEAKER) 106 meq/L 98-107 (test code = 382) CO2 (BEAKER) (test 20 meq/L 22-29 L code = 355) BLOOD UREA NITROGEN 13 mg/dL 7-21 (BEAKER) (test code = 354) CREATININE (BEAKER) 0.92 mg/dL 0.57-1.25 (test code = 358) GLUCOSE RANDOM 122 mg/dL 70-105 H (BEAKER) (test code = 652) CALCIUM (BEAKER) 8.3 mg/dL 8.4-10.2 L (test code = 697) EGFR (BEAKER) (test 60 mL/min/1.73 ESTIMA ENEDELIA GFR IS code = 1092) sq m NOT ACCURATE CREATININE CLEARANCE IN PREDICTING GLOMERULAR FILTRATION RATE . ESTIMATED GFR I S NOT APPLICABLE FOR DIALYSIS PATIEN TS. HEMOGLOBIN AND [id number] 08:43:00 Test Item Value Reference Range Interpretation Comments HEMOGLOBIN (BEAKER) (test code = 7.7 GM/DL 11.2-15.7 L 410) HEMATOCRIT (BEAKER) (test code = 26.7 % 34.1-44.9 L 411) HEMOGLOBIN AND [id number] 02:15:00 Test Item Value Reference Range Interpretation Comments HEMOGLOBIN (BEAKER) (test code = 6.2 GM/DL 11.2-15.7 L 410) HEMATOCRIT (BEAKER) (test code = 22.2 % 34.1-44.9 L 411) [id number] 01:43:00 Test Item Value Reference Range Interpretation Comments MAGNESIUM (BEAKER) (test code = 1.6 mg/dL 1.6-2.6 627) BASIC METABOLIC [id number] 01:43:00 Test Item Value Reference Range Interpretation Comments SODIUM (BEAKER) 136 meq/L 136-145 (test code = 381) POTASSIUM (BEAKER) 3.7 meq/L 3.5-5.1 (test code = 379) CHLORIDE (BEAKER) 106 meq/L 98-107 (test code = 382) CO2 (BEAKER) (test 23 meq/L 22-29 code = 355) BLOOD UREA NITROGEN 16 mg/dL 7-21 (BEAKER) (test code = 354) CREATININE (BEAKER) 1.02 mg/dL 0.57-1.25 (test code = 358) GLUCOSE RANDOM 98 mg/dL 70-105 (BEAKER) (test code = 652) CALCIUM (BEAKER) 8.6 mg/dL 8.4-10.2 (test code = 697) EGFR (BEAKER) (test 53 mL/min/1.73 ESTIMA ENEDELIA GFR IS code = 1092) sq m NOT ACCURATE CREATININE CLEARANCE IN PREDICTING GLOMERULAR FILTRATION RATE . ESTIMATED GFR I S NOT APPLICABLE FOR DIALYSIS PATIEN TS. CBC (HEMOGRAM ONLY)2018-10-28 01:04:00 Test Item Value Reference Range Interpretation Comments WHITE BLOOD CELL COUNT (BEAKER) 5.1 K/ L 3.5-10.5 (test code = 775) RED BLOOD CELL COUNT (BEAKER) 3.12 M/ L 3.93-5.22 L (test code = 761) HEMOGLOBIN (BEAKER) (test code = 6.5 GM/DL 11.2-15.7 L 410) HEMATOCRIT (BEAKER) (test code = 24.0 % 34.1-44.9 L 411) MEAN CORPUSCULAR VOLUME (BEAKER) 76.9 fL 79.4-94.8 L (test code = 753) MEAN CORPUSCULAR HEMOGLOBIN 20.8 pg 25.6-32.2 L (BEAKER) (test code = 751) MEAN CORPUSCULAR HEMOGLOBIN CONC 27.1 GM/DL 32.2-35.5 L (BEAKER) (test code = 752) RED CELL DISTRIBUTION WIDTH 18.8 % 11.7-14.4 H (BEAKER) (test code = 412) PLATELET COUNT (BEAKER) (test 177 K/CU MM 150-450 code = 756) MEAN PLATELET VOLUME (BEAKER) 12.8 fL 9.4-12.3 H (test code = 754) NUCLEATED RED BLOOD CELLS 0 /100 WBC 0-0 (BEAKER) (test code = 413) PLATELET AGGREGATION: FUNCTION [id number] 19:33:00 Test Item Value Reference Range Interpretation Comments WEAK ADP 98 % 60-91 H RESULT(BEAKER) (test code = 2135) PLATELET FUNCTION 60-100% indicates SCREEN INTERP (BEAKER) normal platelet (test code = 2173) function [id number] Ema Londono MD (BEAKER) (test code = (electronic signature) 1606) PLATELET COUNT AGG 171 K/CU MM 150-450 (BEAKER) (test code = 2656) Platelet Function Screen results may be falsely low with platelet counts<100,000/cu mm.for patients on clopidogrel in past two weeksfor patients on clopidogrel in past two weeksfor patients on clopidogrel in past two weeksHGB/HCT (H&H) - STAT [id number] 11:58:00 Test Item Value Reference Range Interpretation Comments HEMOGLOBIN (BEAKER) (test code = 7.6 g/dL 12.0-15.0 L 410) HEMATOCRIT (BEAKER) (test code = 22.0 % 36.0-45.0 L 411) GLUCOSE-STAT [id number] 11:57:00 Test Item Value Reference Range Interpretation Comments GLUCOSE RANDOM (BEAKER) (test code = 96 mg/dL 70-110 652) POTASSIUM-STAT [id number] 11:57:00 Test Item Value Reference Range Interpretation Comments POTASSIUM (BEAKER) (test code = 3.8 meq/L 3.6-5.5 379) POTASSIUM-STAT [id number] 09:09:00 Test Item Value Reference Range Interpretation Comments POTASSIUM (BEAKER) (test code = 3.6 meq/L 3.6-5.5 379) BLOOD GAS, [id number] 09:09:00 Test Item Value Reference Range Interpretation Comments PH ARTERIAL (BEAKER) (test code = 7.32 7.35-7.45 L 383) PCO2 ARTERIAL (BEAKER) (test code 46 mmHg 35-45 H = 384) PO2 ARTERIAL (BEAKER) (test code 274 mmHg 80-90 H = 385) O2 SATURATION ARTERIAL (BEAKER) 99.6 % 96.0-97.0 H (test code = 386) HCO3 ARTERIAL (BEAKER) (test code 23 mmol/L 21-29 = 388) BASE EXCESS ARTERIAL (BEAKER) -3.2 mmol/L -2.0-3.0 L (test code = 387) PATIENT TEMPERATURE (BEAKER) 36.0 C (test code = 1818) FIO2 (BEAKER) (test code = 1819) 100.0 % GLUCOSE-STAT [id number] 09:09:00 Test Item Value Reference Range Interpretation Comments GLUCOSE RANDOM (BEAKER) (test code 112 mg/dL 70-110 H = 652) HGB/HCT (H&H) - STAT [id number] 09:09:00 Test Item Value Reference Range Interpretation Comments HEMOGLOBIN (BEAKER) (test code = 7.5 g/dL 12.0-15.0 L 410) HEMATOCRIT (BEAKER) (test code = 22.0 % 36.0-45.0 L 411) CALCIUM, [id number] 09:09:00 Test Item Value Reference Range Interpretation Comments CALCIUM IONIZED (BEAKER) (test 1.04 mmol/L 1.12-1.27 L code = 698) PH, BLOOD (BEAKER) (test code = 7.30 1810) SODIUM NA-STAT [id number] 09:08:00 Test Item Value Reference Range Interpretation Comments SODIUM (BEAKER) (test code = 381) 138 meq/L 135-148 POCT-GLUCOSE [id number] 06:33:00 Test Item Value Reference Range Interpretation Comments POC-GLUCOSE METER 110 mg/dL 70-[address] [facility] 67[address] (BEAKER) (test code = [place] 1538) [address] RAD, CHEST, 2 [id number] 13:20:00Reason for exam:->pre op screenFINAL REPORT Chest [...] Maurice Verified Date/Time: 10/26/2018 13:20:52 Reading Location: [address] Consult Reading Room LIPID [id number] 12:51:00 Test Item Value Reference Range Interpretation Comments TRIGLYCERIDES (BEAKER) (test code = 110 mg/dL 540) CHOLESTEROL (BEAKER) (test code = 203 mg/dL 631) HDL CHOLESTEROL (BEAKER) (test code 74 mg/dL = 976) LDL CHOLESTEROL CALCULATED (BEAKER) 107 mg/dL (test code = 633) Triglyceride Reference Range: Low Risk <150 Borderline 150-199 High Risk 200-499 Very High Risk >=500Cholesterol Reference Range: Low Risk <200 Borderline 200-239 High Risk >240HDL Cholesterol Reference Range: Low Risk >=60 High Risk <40LDL Cholesterol Reference Range: Optimal <100 Near Optimal 100-129 Borderline 130-159 High 160-189 Very High >=190BASI METABOLIC [id number] 12:51:00 Test Item Value Reference Range Interpretation Comments SODIUM (BEAKER) 139 meq/L 136-145 (test code = 381) POTASSIUM (BEAKER) 4.0 meq/L 3.5-5.1 (test code = 379) CHLORIDE (BEAKER) 105 meq/L 98-107 (test code = 382) CO2 (BEAKER) (test 23 meq/L 22-29 code = 355) BLOOD UREA NITROGEN 17 mg/dL 7-21 (BEAKER) (test code = 354) CREATININE (BEAKER) 1.05 mg/dL 0.57-1.25 (test code = 358) GLUCOSE RANDOM 85 mg/dL 70-105 (BEAKER) (test code = 652) CALCIUM (BEAKER) 9.5 mg/dL 8.4-10.2 (test code = 697) EGFR (BEAKER) (test 52 mL/min/1.73 ESTIMA ENEDELIA GFR IS code = 1092) sq m NOT ACCURATE CREATININE CLEARANCE IN PREDICTING GLOMERULAR FILTRATION RATE . ESTIMATED GFR I S NOT APPLICABLE FOR DIALYSIS PATIEN TS. CBC W/PLT COUNT & AUTO [id number] 12:47:00 Test Item Value Reference Range Interpretation Comments WHITE BLOOD CELL COUNT (BEAKER) 6.4 K/ L 3.5-10.5 (test code = 775) RED BLOOD CELL COUNT (BEAKER) 3.53 M/ L 3.93-5.22 L (test code = 761) HEMOGLOBIN (BEAKER) (test code = 7.5 GM/DL 11.2-15.7 L 410) HEMATOCRIT (BEAKER) (test code = 27.3 % 34.1-44.9 L 411) MEAN CORPUSCULAR VOLUME (BEAKER) 77.3 fL 79.4-94.8 L (test code = 753) MEAN CORPUSCULAR HEMOGLOBIN 21.2 pg 25.6-32.2 L (BEAKER) (test code = 751) MEAN CORPUSCULAR HEMOGLOBIN CONC 27.5 GM/DL 32.2-35.5 L (BEAKER) (test code = 752) RED CELL DISTRIBUTION WIDTH 18.4 % 11.7-14.4 H (BEAKER) (test code = 412) PLATELET COUNT (BEAKER) (test 189 K/CU MM 150-450 code = 756) MEAN PLATELET VOLUME (BEAKER) 12.3 fL 9.4-12.3 (test code = 754) NUCLEATED RED BLOOD CELLS 0 /100 WBC 0-0 (BEAKER) (test code = 413) NEUTROPHILS RELATIVE PERCENT 61 % (BEAKER) (test code = 429) LYMPHOCYTES RELATIVE PERCENT 25 % (BEAKER) (test code = 430) MONOCYTES RELATIVE PERCENT 9 % (BEAKER) (test code = 431) EOSINOPHILS RELATIVE PERCENT 4 % (BEAKER) (test code = 432) BASOPHILS RELATIVE PERCENT 1 % (BEAKER) (test code = 437) NEUTROPHILS ABSOLUTE COUNT 3.90 K/ L 1.56-6.13 (BEAKER) (test code = 670) LYMPHOCYTES ABSOLUTE COUNT 1.62 K/ L 1.18-3.74 (BEAKER) (test code = 414) MONOCYTES ABSOLUTE COUNT (BEAKER) 0.56 K/ L 0.24-0.36 H (test code = 415) EOSINOPHILS ABSOLUTE COUNT 0.24 K/ L 0.04-0.36 (BEAKER) (test code = 416) BASOPHILS ABSOLUTE COUNT (BEAKER) 0.04 K/ L 0.01-0.08 (test code = 417) IMMATURE GRANULOCYTES-RELATIVE 1 % 0-1 PERCENT (BEAKER) (test code = 2801) PROTHROMBIN [id number] 12:45:00 Test Item Value Reference Range Interpretation Comments PROTIME (BEAKER) (test code = 13.1 seconds 11.7-14.7 759) INR (BEAKER) (test code = 370) 1.0 <=5.9 RECOMMENDED COUMADIN/WARFARIN INR THERAPY RANGESSTANDARD DOSE: 2.0 - 3.0 Includes: PROPHYLAXIS forvenous thrombosis, systemic embolization; TREATMENT for venous thrombosis and/or pulmonary embolus.HIGH RISK: Target INR is 2.5-3.5 for patients with mechanical heart valves.[id number] 07:41:00 Test Item Value Reference Range Interpretation Comments MAGNESIUM (BEAKER) (test code = 1.9 mg/dL 1.6-2.6 627) BASIC METABOLIC [id number] 07:41:00 Test Item Value Reference Range Interpretation Comments SODIUM (BEAKER) 137 meq/L 136-145 (test code = 381) POTASSIUM (BEAKER) 3.5 meq/L 3.5-5.1 (test code = 379) CHLORIDE (BEAKER) 100 meq/L 98-107 (test code = 382) CO2 (BEAKER) (test 24 meq/L 22-29 code = 355) BLOOD UREA NITROGEN 13 mg/dL 7-21 (BEAKER) (test code = 354) CREATININE (BEAKER) 0.80 mg/dL 0.57-1.25 (test code = 358) GLUCOSE RANDOM 71 mg/dL 70-105 (BEAKER) (test code = 652) CALCIUM (BEAKER) 9.5 mg/dL 8.4-10.2 (test code = 697) EGFR (BEAKER) (test 71 mL/min/1.73 ESTIMA ENEDELIA GFR IS code = 1092) sq m NOT ACCURATE CREATININE CLEARANCE IN PREDICTING GLOMERULAR FILTRATION RATE . ESTIMATED GFR I S NOT APPLICABLE FOR DIALYSIS PATIEN TS. CBC W/PLT COUNT & AUTO [id number] 07:12:00 Test Item Value Reference Range Interpretation Comments WHITE BLOOD CELL COUNT (BEAKER) 5.3 K/ L 3.5-10.5 (test code = 775) RED BLOOD CELL COUNT (BEAKER) 3.76 M/ L 3.93-5.22 L (test code = 761) HEMOGLOBIN (BEAKER) (test code = 10.1 GM/DL 11.2-15.7 L 410) HEMATOCRIT (BEAKER) (test code = 33.1 % 34.1-44.9 L 411) MEAN CORPUSCULAR VOLUME (BEAKER) 88.0 fL 79.4-94.8 (test code = 753) MEAN CORPUSCULAR HEMOGLOBIN 26.9 pg 25.6-32.2 (BEAKER) (test code = 751) MEAN CORPUSCULAR HEMOGLOBIN CONC 30.5 GM/DL 32.2-35.5 L (BEAKER) (test code = 752) RED CELL DISTRIBUTION WIDTH 14.4 % 11.7-14.4 (BEAKER) (test code = 412) PLATELET COUNT (BEAKER) (test 218 K/CU MM 150-450 code = 756) MEAN PLATELET VOLUME (BEAKER) 12.7 fL 9.4-12.3 H (test code = 754) NUCLEATED RED BLOOD CELLS 0 /100 WBC 0-0 (BEAKER) (test code = 413) NEUTROPHILS RELATIVE PERCENT 68 % (BEAKER) (test code = 429) LYMPHOCYTES RELATIVE PERCENT 19 % (BEAKER) (test code = 430) MONOCYTES RELATIVE PERCENT 9 % (BEAKER) (test code = 431) EOSINOPHILS RELATIVE PERCENT 3 % (BEAKER) (test code = 432) BASOPHILS RELATIVE PERCENT 1 % (BEAKER) (test code = 437) NEUTROPHILS ABSOLUTE COUNT 3.59 K/ L 1.56-6.13 (BEAKER) (test code = 670) LYMPHOCYTES ABSOLUTE COUNT 0.97 K/ L 1.18-3.74 L (BEAKER) (test code = 414) MONOCYTES ABSOLUTE COUNT (BEAKER) 0.46 K/ L 0.24-0.36 H (test code = 415) EOSINOPHILS ABSOLUTE COUNT 0.13 K/ L 0.04-0.36 (BEAKER) (test code = 416) BASOPHILS ABSOLUTE COUNT (BEAKER) 0.03 K/ L 0.01-0.08 (test code = 417) IMMATURE GRANULOCYTES-RELATIVE 1 % 0-1 PERCENT (BEAKER) (test code = 2801) [id number] 07:19:00 Test Item Value Reference Range Interpretation Comments FERRITIN (BEAKER) (test code = 361) 45 ng/mL 5-275 IRON, TIBC, % SAT. (WITHOUT FERRITIN)[id number] 07:01:00 Test Item Value Reference Range Interpretation Comments IRON (BEAKER) (test code = 547) 41 ug/dL 40-160 TOTAL IRON BINDING CAPACITY 289 ug/dL 250-450 (BEAKER) (test code = 769) IRON % SATURATION (2) (BEAKER) 14 % 20-55 L (test code = 2590) [id number] 06:41:00 Test Item Value Reference Range Interpretation Comments MAGNESIUM (BEAKER) (test code = 1.9 mg/dL 1.6-2.6 627) BASIC METABOLIC [id number] 06:41:00 Test Item Value Reference Range Interpretation Comments SODIUM (BEAKER) 135 meq/L 136-145 L (test code = 381) POTASSIUM (BEAKER) 3.5 meq/L 3.5-5.1 (test code = 379) CHLORIDE (BEAKER) 97 meq/L 98-107 L (test code = 382) CO2 (BEAKER) (test 26 meq/L 22-29 code = 355) BLOOD UREA NITROGEN 14 mg/dL 7-21 (BEAKER) (test code = 354) CREATININE (BEAKER) 0.87 mg/dL 0.57-1.25 (test code = 358) GLUCOSE RANDOM 91 mg/dL 70-105 (BEAKER) (test code = 652) CALCIUM (BEAKER) 9.5 mg/dL 8.4-10.2 (test code = 697) EGFR (BEAKER) (test 64 mL/min/1.73 ESTIMA ENEDELIA GFR IS code = 1092) sq m NOT ACCURATE CREATININE CLEARANCE IN PREDICTING GLOMERULAR FILTRATION RATE . ESTIMATED GFR I S NOT APPLICABLE FOR DIALYSIS PATIEN TS. CBC W/PLT COUNT & AUTO [id number] 06:20:00 Test Item Value Reference Range Interpretation Comments WHITE BLOOD CELL COUNT (BEAKER) 5.7 K/ L 3.5-10.5 (test code = 775) RED BLOOD CELL COUNT (BEAKER) 3.60 M/ L 3.93-5.22 L (test code = 761) HEMOGLOBIN (BEAKER) (test code = 9.7 GM/DL 11.2-15.7 L 410) HEMATOCRIT (BEAKER) (test code = 31.2 % 34.1-44.9 L 411) MEAN CORPUSCULAR VOLUME (BEAKER) 86.7 fL 79.4-94.8 (test code = 753) MEAN CORPUSCULAR HEMOGLOBIN 26.9 pg 25.6-32.2 (BEAKER) (test code = 751) MEAN CORPUSCULAR HEMOGLOBIN CONC 31.1 GM/DL 32.2-35.5 L (BEAKER) (test code = 752) RED CELL DISTRIBUTION WIDTH 14.5 % 11.7-14.4 H (BEAKER) (test code = 412) PLATELET COUNT (BEAKER) (test 208 K/CU MM 150-450 code = 756) MEAN PLATELET VOLUME (BEAKER) 12.7 fL 9.4-12.3 H (test code = 754) NUCLEATED RED BLOOD CELLS 0 /100 WBC 0-0 (BEAKER) (test code = 413) NEUTROPHILS RELATIVE PERCENT 68 % (BEAKER) (test code = 429) LYMPHOCYTES RELATIVE PERCENT 19 % (BEAKER) (test code = 430) MONOCYTES RELATIVE PERCENT 8 % (BEAKER) (test code = 431) EOSINOPHILS RELATIVE PERCENT 3 % (BEAKER) (test code = 432) BASOPHILS RELATIVE PERCENT 1 % (BEAKER) (test code = 437) NEUTROPHILS ABSOLUTE COUNT 3.90 K/ L 1.56-6.13 (BEAKER) (test code = 670) LYMPHOCYTES ABSOLUTE COUNT 1.08 K/ L 1.18-3.74 L (BEAKER) (test code = 414) MONOCYTES ABSOLUTE COUNT (BEAKER) 0.48 K/ L 0.24-0.36 H (test code = 415) EOSINOPHILS ABSOLUTE COUNT 0.17 K/ L 0.04-0.36 (BEAKER) (test code = 416) BASOPHILS ABSOLUTE COUNT (BEAKER) 0.03 K/ L 0.01-0.08 (test code = 417) IMMATURE GRANULOCYTES-RELATIVE 1 % 0-1 PERCENT (BEAKER) (test code = 2801) [id number] 06:02:00 Test Item Value Reference Range Interpretation Comments MAGNESIUM (BEAKER) (test code = 1.8 mg/dL 1.6-2.6 627) BASIC METABOLIC [id number] 06:02:00 Test Item Value Reference Range Interpretation Comments SODIUM (BEAKER) 135 meq/L 136-145 L (test code = 381) POTASSIUM (BEAKER) 3.4 meq/L 3.5-5.1 L (test code = 379) CHLORIDE (BEAKER) 97 meq/L 98-107 L (test code = 382) CO2 (BEAKER) (test 28 meq/L 22-29 code = 355) BLOOD UREA NITROGEN 19 mg/dL 7-21 (BEAKER) (test code = 354) CREATININE (BEAKER) 1.04 mg/dL 0.57-1.25 (test code = 358) GLUCOSE RANDOM 98 mg/dL 70-105 (BEAKER) (test code = 652) CALCIUM (BEAKER) 9.6 mg/dL 8.4-10.2 (test code = 697) EGFR (BEAKER) (test 52 mL/min/1.73 ESTIMA ENEDELIA GFR IS code = 1092) sq m NOT ACCURATE CREATININE CLEARANCE IN PREDICTING GLOMERULAR FILTRATION RATE . ESTIMATED GFR I S NOT APPLICABLE FOR DIALYSIS PATIEN TS. CBC W/PLT COUNT & AUTO [id number] 05:35:00 Test Item Value Reference Range Interpretation Comments WHITE BLOOD CELL COUNT (BEAKER) 5.8 K/ L 3.5-10.5 (test code = 775) RED BLOOD CELL COUNT (BEAKER) 3.58 M/ L 3.93-5.22 L (test code = 761) HEMOGLOBIN (BEAKER) (test code = 9.9 GM/DL 11.2-15.7 L 410) HEMATOCRIT (BEAKER) (test code = 31.5 % 34.1-44.9 L 411) MEAN CORPUSCULAR VOLUME (BEAKER) 88.0 fL 79.4-94.8 (test code = 753) MEAN CORPUSCULAR HEMOGLOBIN 27.7 pg 25.6-32.2 (BEAKER) (test code = 751) MEAN CORPUSCULAR HEMOGLOBIN CONC 31.4 GM/DL 32.2-35.5 L (BEAKER) (test code = 752) RED CELL DISTRIBUTION WIDTH 14.5 % 11.7-14.4 H (BEAKER) (test code = 412) PLATELET COUNT (BEAKER) (test 183 K/CU MM 150-450 code = 756) MEAN PLATELET VOLUME (BEAKER) 12.1 fL 9.4-12.3 (test code = 754) NUCLEATED RED BLOOD CELLS 0 /100 WBC 0-0 (BEAKER) (test code = 413) NEUTROPHILS RELATIVE PERCENT 68 % (BEAKER) (test code = 429) LYMPHOCYTES RELATIVE PERCENT 18 % (BEAKER) (test code = 430) MONOCYTES RELATIVE PERCENT 9 % (BEAKER) (test code = 431) EOSINOPHILS RELATIVE PERCENT 4 % (BEAKER) (test code = 432) BASOPHILS RELATIVE PERCENT 1 % (BEAKER) (test code = 437) NEUTROPHILS ABSOLUTE COUNT 3.90 K/ L 1.56-6.13 (BEAKER) (test code = 670) LYMPHOCYTES ABSOLUTE COUNT 1.05 K/ L 1.18-3.74 L (BEAKER) (test code = 414) MONOCYTES ABSOLUTE COUNT (BEAKER) 0.51 K/ L 0.24-0.36 H (test code = 415) EOSINOPHILS ABSOLUTE COUNT 0.20 K/ L 0.04-0.36 (BEAKER) (test code = 416) BASOPHILS ABSOLUTE COUNT (BEAKER) 0.03 K/ L 0.01-0.08 (test code = 417) IMMATURE GRANULOCYTES-RELATIVE 1 % 0-1 PERCENT (BEAKER) (test code = 2801) MR, SPINE, LUMBAR, WITHOUT [id number] 14:56:00FINAL REPORT MRI of the lumbar spine [...] Right foramen is patent. 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 Correlate with [...] compromise should be correlated with corresponding specific rad iculopathy as detailed above. Signed: Catrachita Calle MDReport Verified Date/Time: 02/10/2018 14:56:55Reading Location: [address] Consult Reading Room MR, SPINE, THORACIC, WITHOUT [id number] 14:43:00FINAL REPORT MRI of the thoracic spine Comparison: [...] postcontrast thoracic spine MRI follow-up. Signed: Catrachita Calleeport Verified Date/Time: 02/10/2018 14:43:52 Reading Location: [address] Consult Reading Room [id number] 04:38:00 Test Item Value Reference Range Interpretation Comments MAGNESIUM (BEAKER) (test code = 2.1 mg/dL 1.6-2.6 627) BASIC METABOLIC [id number] 04:38:00 Test Item Value Reference Range Interpretation Comments SODIUM (BEAKER) 137 meq/L 136-145 (test code = 381) POTASSIUM (BEAKER) 3.4 meq/L 3.5-5.1 L (test code = 379) CHLORIDE (BEAKER) 96 meq/L 98-107 L (test code = 382) CO2 (BEAKER) (test 30 meq/L 22-29 H code = 355) BLOOD UREA NITROGEN 15 mg/dL 7-21 (BEAKER) (test code = 354) CREATININE (BEAKER) 1.04 mg/dL 0.57-1.25 (test code = 358) GLUCOSE RANDOM 92 mg/dL 70-105 (BEAKER) (test code = 652) CALCIUM (BEAKER) 9.9 mg/dL 8.4-10.2 (test code = 697) EGFR (BEAKER) (test 52 mL/min/1.73 ESTIMA ENEDELIA GFR IS code = 1092) sq m NOT ACCURATE CREATININE CLEARANCE IN PREDICTING GLOMERULAR FILTRATION RATE . ESTIMATED GFR I S NOT APPLICABLE FOR DIALYSIS PATIEN TS. CBC W/PLT COUNT & AUTO [id number] 04:21:00 Test Item Value Reference Range Interpretation Comments WHITE BLOOD CELL COUNT (BEAKER) 6.7 K/ L 3.5-10.5 (test code = 775) RED BLOOD CELL COUNT (BEAKER) 3.53 M/ L 3.93-5.22 L (test code = 761) HEMOGLOBIN (BEAKER) (test code = 9.3 GM/DL 11.2-15.7 L 410) HEMATOCRIT (BEAKER) (test code = 31.0 % 34.1-44.9 L 411) MEAN CORPUSCULAR VOLUME (BEAKER) 87.8 fL 79.4-94.8 (test code = 753) MEAN CORPUSCULAR HEMOGLOBIN 26.3 pg 25.6-32.2 (BEAKER) (test code = 751) MEAN CORPUSCULAR HEMOGLOBIN CONC 30.0 GM/DL 32.2-35.5 L (BEAKER) (test code = 752) RED CELL DISTRIBUTION WIDTH 14.6 % 11.7-14.4 H (BEAKER) (test code = 412) PLATELET COUNT (BEAKER) (test 208 K/CU MM 150-450 code = 756) MEAN PLATELET VOLUME (BEAKER) 12.6 fL 9.4-12.3 H (test code = 754) NUCLEATED RED BLOOD CELLS 0 /100 WBC 0-0 (BEAKER) (test code = 413) NEUTROPHILS RELATIVE PERCENT 67 % (BEAKER) (test code = 429) LYMPHOCYTES RELATIVE PERCENT 20 % (BEAKER) (test code = 430) MONOCYTES RELATIVE PERCENT 10 % (BEAKER) (test code = 431) EOSINOPHILS RELATIVE PERCENT 2 % (BEAKER) (test code = 432) BASOPHILS RELATIVE PERCENT 0 % (BEAKER) (test code = 437) NEUTROPHILS ABSOLUTE COUNT 4.52 K/ L 1.56-6.13 (BEAKER) (test code = 670) LYMPHOCYTES ABSOLUTE COUNT 1.34 K/ L 1.18-3.74 (BEAKER) (test code = 414) MONOCYTES ABSOLUTE COUNT (BEAKER) 0.66 K/ L 0.24-0.36 H (test code = 415) EOSINOPHILS ABSOLUTE COUNT 0.13 K/ L 0.04-0.36 (BEAKER) (test code = 416) BASOPHILS ABSOLUTE COUNT (BEAKER) 0.03 K/ L 0.01-0.08 (test code = 417) IMMATURE GRANULOCYTES-RELATIVE 1 % 0-1 PERCENT (BEAKER) (test code = 2801) URINALYSIS W/ REFLEX URINE [id number] 12:55:00 Test Item Value Reference Range Interpretation Comments COLOR (BEAKER) (test code = 470) Yellow CLARITY (BEAKER) (test code = 469) Clear SPECIFIC GRAVITY UA (BEAKER) (test 1.010 1.001-1.035 code = 468) PH UA (BEAKER) (test code = 467) 5.5 5.0-8.0 PROTEIN UA (BEAKER) (test code = Negative Negative 464) GLUCOSE UA (BEAKER) (test code = Negative Negative 365) KETONES UA (BEAKER) (test code = Negative Negative 371) BILIRUBIN UA (BEAKER) (test code = Negative Negative 462) BLOOD UA (BEAKER) (test code = 461) Negative Negative NITRITE UA (BEAKER) (test code = Negative Negative 465) LEUKOCYTE ESTERASE UA (BEAKER) Negative Negative (test code = 466) UROBILINOGEN UA (BEAKER) (test code 0.2 mg/dL 0.2-1.0 = 463) RBC UA (BEAKER) (test code = 519) < /HPF WBC UA (BEAKER) (test code = 520) 1 /HPF MUCUS (BEAKER) (test code = 1574) Rare SQUAMOUS EPITHELIAL (BEAKER) (test 1 /HPF code = 516) HYALINE CASTS (BEAKER) (test code = 2 /LPF 514) SOURCE(BEAKER) (test code = 2795) [id number] 05:52:00 Test Item Value Reference Range Interpretation Comments MAGNESIUM (BEAKER) (test code = 2.1 mg/dL 1.6-2.6 627) BASIC METABOLIC [id number] 05:52:00 Test Item Value Reference Range Interpretation Comments SODIUM (BEAKER) 137 meq/L 136-145 (test code = 381) POTASSIUM (BEAKER) 3.5 meq/L 3.5-5.1 (test code = 379) CHLORIDE (BEAKER) 98 meq/L 98-107 (test code = 382) CO2 (BEAKER) (test 28 meq/L 22-29 code = 355) BLOOD UREA NITROGEN 15 mg/dL 7-21 (BEAKER) (test code = 354) CREATININE (BEAKER) 1.03 mg/dL 0.57-1.25 (test code = 358) GLUCOSE RANDOM 97 mg/dL 70-105 (BEAKER) (test code = 652) CALCIUM (BEAKER) 9.8 mg/dL 8.4-10.2 (test code = 697) EGFR (BEAKER) (test 53 mL/min/1.73 ESTIMA ENEDELIA GFR IS code = 1092) sq m NOT ACCURATE CREATININE CLEARANCE IN PREDICTING GLOMERULAR FILTRATION RATE . ESTIMATED GFR I S NOT APPLICABLE FOR DIALYSIS PATIEN TS. CBC W/PLT COUNT & AUTO [id number] 05:33:00 Test Item Value Reference Range Interpretation Comments WHITE BLOOD CELL COUNT (BEAKER) 5.9 K/ L 3.5-10.5 (test code = 775) RED BLOOD CELL COUNT (BEAKER) 3.83 M/ L 3.93-5.22 L (test code = 761) HEMOGLOBIN (BEAKER) (test code = 10.2 GM/DL 11.2-15.7 L 410) HEMATOCRIT (BEAKER) (test code = 33.5 % 34.1-44.9 L 411) MEAN CORPUSCULAR VOLUME (BEAKER) 87.5 fL 79.4-94.8 (test code = 753) MEAN CORPUSCULAR HEMOGLOBIN 26.6 pg 25.6-32.2 (BEAKER) (test code = 751) MEAN CORPUSCULAR HEMOGLOBIN CONC 30.4 GM/DL 32.2-35.5 L (BEAKER) (test code = 752) RED CELL DISTRIBUTION WIDTH 14.6 % 11.7-14.4 H (BEAKER) (test code = 412) PLATELET COUNT (BEAKER) (test 182 K/CU MM 150-450 code = 756) MEAN PLATELET VOLUME (BEAKER) 12.6 fL 9.4-12.3 H (test code = 754) NUCLEATED RED BLOOD CELLS 0 /100 WBC 0-0 (BEAKER) (test code = 413) NEUTROPHILS RELATIVE PERCENT 67 % (BEAKER) (test code = 429) LYMPHOCYTES RELATIVE PERCENT 20 % (BEAKER) (test code = 430) MONOCYTES RELATIVE PERCENT 8 % (BEAKER) (test code = 431) EOSINOPHILS RELATIVE PERCENT 3 % (BEAKER) (test code = 432) BASOPHILS RELATIVE PERCENT 1 % (BEAKER) (test code = 437) NEUTROPHILS ABSOLUTE COUNT 3.99 K/ L 1.56-6.13 (BEAKER) (test code = 670) LYMPHOCYTES ABSOLUTE COUNT 1.20 K/ L 1.18-3.74 (BEAKER) (test code = 414) MONOCYTES ABSOLUTE COUNT (BEAKER) 0.49 K/ L 0.24-0.36 H (test code = 415) EOSINOPHILS ABSOLUTE COUNT 0.15 K/ L 0.04-0.36 (BEAKER) (test code = 416) BASOPHILS ABSOLUTE COUNT (BEAKER) 0.04 K/ L 0.01-0.08 (test code = 417) IMMATURE GRANULOCYTES-RELATIVE 1 % 0-1 PERCENT (BEAKER) (test code = 2801) VITAMIN B12 AND [id number] 06:37:00 Test Item Value Reference Range Interpretation Comments VITAMIN B12 (BEAKER) (test code = 460 pg/mL 213-816 774) FOLATE (BEAKER) (test code = 362) 4.2 ng/mL >=7.0 L TSH/FREE T4 IF [id number] 06:22:00 Test Item Value Reference Range Interpretation Comments THYROID STIMULATING HORMONE 1.37 uIU/mL 0.35-4.94 (BEAKER) (test code = 772) [id number] 06:16:00 Test Item Value Reference Range Interpretation Comments PHOSPHORUS (BEAKER) (test code = 3.7 mg/dL 2.3-4.7 604) [id number] 06:16:00 Test Item Value Reference Range Interpretation Comments MAGNESIUM (BEAKER) (test code = 1.9 mg/dL 1.6-2.6 627) BASIC METABOLIC [id number] 06:16:00 Test Item Value Reference Range Interpretation Comments SODIUM (BEAKER) 135 meq/L 136-145 L (test code = 381) POTASSIUM (BEAKER) 3.6 meq/L 3.5-5.1 (test code = 379) CHLORIDE (BEAKER) 100 meq/L 98-107 (test code = 382) CO2 (BEAKER) (test 25 meq/L 22-29 code = 355) BLOOD UREA NITROGEN 16 mg/dL 7-21 (BEAKER) (test code = 354) CREATININE (BEAKER) 0.89 mg/dL 0.57-1.25 (test code = 358) GLUCOSE RANDOM 94 mg/dL 70-105 (BEAKER) (test code = 652) CALCIUM (BEAKER) 9.2 mg/dL 8.4-10.2 (test code = 697) EGFR (BEAKER) (test 63 mL/min/1.73 ESTIMA ENEDELIA GFR IS code = 1092) sq m NOT ACCURATE CREATININE CLEARANCE IN PREDICTING GLOMERULAR FILTRATION RATE . ESTIMATED GFR I S NOT APPLICABLE FOR DIALYSIS PATIEN TS. LIPID [id number] 06:16:00 Test Item Value Reference Range Interpretation Comments TRIGLYCERIDES (BEAKER) (test code = 71 mg/dL 540) CHOLESTEROL (BEAKER) (test code = 135 mg/dL 631) HDL CHOLESTEROL (BEAKER) (test code 47 mg/dL = 976) LDL CHOLESTEROL CALCULATED (BEAKER) 74 mg/dL (test code = 633) Triglyceride Reference Range: Low Risk <150 Borderline 150-199 High Risk 200-499 Very High Risk >=500Cholesterol Reference Range: Low Risk <200 Borderline 200-239 High Risk >240HDL Cholesterol Reference Range: Low Risk >=60 High Risk <40LDL Cholesterol Reference Range: Optimal <100 Near Optimal 100-129 Borderline 130-159 High 160-189 Very High >=190C-REACTIVE [id number] 06:16:00 Test Item Value Reference Range Interpretation Comments C-REACTIVE PROTEIN (BEAKER) (test 7.42 mg/dL 0.00-0.50 H code = 676) CBC W/PLT COUNT & AUTO [id number] 05:44:00 Test Item Value Reference Range Interpretation Comments WHITE BLOOD CELL COUNT (BEAKER) 5.6 K/ L 3.5-10.5 (test code = 775) RED BLOOD CELL COUNT (BEAKER) 3.35 M/ L 3.93-5.22 L (test code = 761) HEMOGLOBIN (BEAKER) (test code = 9.0 GM/DL 11.2-15.7 L 410) HEMATOCRIT (BEAKER) (test code = 29.6 % 34.1-44.9 L 411) MEAN CORPUSCULAR VOLUME (BEAKER) 88.4 fL 79.4-94.8 (test code = 753) MEAN CORPUSCULAR HEMOGLOBIN 26.9 pg 25.6-32.2 (BEAKER) (test code = 751) MEAN CORPUSCULAR HEMOGLOBIN CONC 30.4 GM/DL 32.2-35.5 L (BEAKER) (test code = 752) RED CELL DISTRIBUTION WIDTH 14.6 % 11.7-14.4 H (BEAKER) (test code = 412) PLATELET COUNT (BEAKER) (test 163 K/CU MM 150-450 code = 756) MEAN PLATELET VOLUME (BEAKER) 12.7 fL 9.4-12.3 H (test code = 754) NUCLEATED RED BLOOD CELLS 0 /100 WBC 0-0 (BEAKER) (test code = 413) NEUTROPHILS RELATIVE PERCENT 67 % (BEAKER) (test code = 429) LYMPHOCYTES RELATIVE PERCENT 19 % (BEAKER) (test code = 430) MONOCYTES RELATIVE PERCENT 10 % (BEAKER) (test code = 431) EOSINOPHILS RELATIVE PERCENT 2 % (BEAKER) (test code = 432) BASOPHILS RELATIVE PERCENT 1 % (BEAKER) (test code = 437) NEUTROPHILS ABSOLUTE COUNT 3.72 K/ L 1.56-6.13 (BEAKER) (test code = 670) LYMPHOCYTES ABSOLUTE COUNT 1.08 K/ L 1.18-3.74 L (BEAKER) (test code = 414) MONOCYTES ABSOLUTE COUNT (BEAKER) 0.58 K/ L 0.24-0.36 H (test code = 415) EOSINOPHILS ABSOLUTE COUNT 0.10 K/ L 0.04-0.36 (BEAKER) (test code = 416) BASOPHILS ABSOLUTE COUNT (BEAKER) 0.03 K/ L 0.01-0.08 (test code = 417) IMMATURE GRANULOCYTES-RELATIVE 1 % 0-1 PERCENT (BEAKER) (test code = 2801) URINALYSIS W/ [id number] 20:50:00 Test Item Value Reference Range Interpretation Comments COLOR (BEAKER) (test code = Yellow 470) CLARITY (BEAKER) (test code = Clear 469) SPECIFIC GRAVITY UA (BEAKER) 1.015 1.001-1.035 (test code = 468) PH UA (BEAKER) (test code = 5.5 5.0-8.0 467) PROTEIN UA (BEAKER) (test code Negative Negative = 464) GLUCOSE UA (BEAKER) (test code Negative Negative = 365) KETONES UA (BEAKER) (test code Negative Negative = 371) BILIRUBIN UA (BEAKER) (test Negative Negative code = 462) BLOOD UA (BEAKER) (test code = Negative Negative 461) NITRITE UA (BEAKER) (test code Negative Negative = 465) LEUKOCYTE ESTERASE UA (BEAKER) Large Negative A (test code = 466) UROBILINOGEN UA (BEAKER) (test 0.2 mg/dL 0.2-1.0 code = 463) RBC UA (BEAKER) (test code = 2 /HPF 519) WBC UA (BEAKER) (test code = 46 /HPF 520) BACTERIA (BEAKER) (test code = Rare 517) MUCUS (BEAKER) (test code = Occasional 1574) SQUAMOUS EPITHELIAL (BEAKER) 4 /HPF (test code = 516) HYALINE CASTS (BEAKER) (test 4 /LPF code = 514) SOURCE(BEAKER) (test code = Urine, Voided 3367) MR, BRAIN, WITHOUT [id number] 19:27:00Reason for exam:->Ischemic Stroke EvaluationFINAL REPORT Exam: [...] may represent a subacute infarct or T2 s santos through. There are mild to moderate white [...] are unremarkable. The craniocervical junction is normal. Imp ression:Small acute infarcts in the supratentorial and infratentorial brain, which may be embolic inetiology. No acute intracranial hemorrhage or mass effect. Yxsq-jb-zvxgozib white matter microvascular ischemic changes.Prior microhemorrhage in the right frontal lobe. Findings discussed with Dr Helm at 7:25 PM on 02/07/2018. Signed: Shane Rodriguez Verified Date/Time: 02/07/2018 19:27:07 Reading Location: [address] Reading Room MR, MRA, BRAIN, WITHOUT [id number] 19:25:00Reason for exam:->Ischemic Stroke EvaluationFINAL REPORT MRA head and neck without contrast. CLINICAL HISTORY: Stroke. Ischemic stroke evaluation.. COMPARISON: None. TECHNIQUE: Two- and three-dimensional edfv-tt-ulrgqw MRA images of the intra- and extracranial [...] Shane Rodriguez Verified Date/Time:02/07/2018 19:25:57 Reading Location: [address] Reading Room MR, MRA, NECK, WITHOUT IV [id number] 19:25:00Reason for exam:->Ischemic Stroke EvaluationFINAL REPORT MRA head and neck without contrast. CLINICAL HISTORY: Stroke. Ischemic stroke evaluation.. COMPARISON: None. TECHNIQUE: Two- and three-dimensional jyux-iw-trkmqd MRA images of the intra- and extracranial [...] to atherosclerosis. There is no vessel occlusion, flow- limiting stenosis, or aneurysm in the intracranial carotid [...] vessel occlusion or flow-limiting stenosis. Signed: Shane Rodriguezeport Verified Date/Time:02/07/2018 19:25:57 Reading Location: [address] Reading Room HEMOGLOBIN [id number] 12:15:00 Test Item Value Reference Range Interpretation Comments HEMOGLOBIN A1C (BEAKER) (test code = 6.0 % 4.3-6.1 368) TSH/FREE T4 IF [id number] 12:13:00 Test Item Value Reference Range Interpretation Comments THYROID STIMULATING HORMONE 1.43 uIU/mL 0.35-4.94 (BEAKER) (test code = 772) LIPID [id number] 08:53:00 Test Item Value Reference Range Interpretation Comments TRIGLYCERIDES (BEAKER) (test code = 67 mg/dL 540) CHOLESTEROL (BEAKER) (test code = 142 mg/dL 631) HDL CHOLESTEROL (BEAKER) (test code 48 mg/dL = 976) LDL CHOLESTEROL CALCULATED (BEAKER) 81 mg/dL (test code = 633) Triglyceride Reference Range: Low Risk <150 Borderline 150-199 High Risk 200-499 Very High Risk >=500Cholesterol Reference Range: Low Risk <200 Borderline 200-239 High Risk >240HDL Cholesterol Reference Range: Low Risk >=60 High Risk <40LDL Cholesterol Reference Range: Optimal <100 Near Optimal 100-129 Borderline 130-159 High 160-189 Very High >=190BASIC METABOLIC [id number] 08:53:00 Test Item Value Reference Range Interpretation Comments SODIUM (BEAKER) 135 meq/L 136-145 L (test code = 381) POTASSIUM (BEAKER) 3.6 meq/L 3.5-5.1 (test code = 379) CHLORIDE (BEAKER) 101 meq/L 98-107 (test code = 382) CO2 (BEAKER) (test 25 meq/L 22-29 code = 355) BLOOD UREA NITROGEN 15 mg/dL 7-21 (BEAKER) (test code = 354) CREATININE (BEAKER) 0.86 mg/dL 0.57-1.25 (test code = 358) GLUCOSE RANDOM 96 mg/dL 70-105 (BEAKER) (test code = 652) CALCIUM (BEAKER) 9.2 mg/dL 8.4-10.2 (test code = 697) EGFR (BEAKER) (test 65 mL/min/1.73 ESTIMA ENEDELIA GFR IS code = 1092) sq m NOT ACCURATE CREATININE CLEARANCE IN PREDICTING GLOMERULAR FILTRATION RATE . ESTIMATED GFR I S NOT APPLICABLE FOR DIALYSIS PATIEN TS. CBC W/PLT COUNT & AUTO [id number] 08:43:00 Test Item Value Reference Range Interpretation Comments WHITE BLOOD CELL COUNT (BEAKER) 5.8 K/ L 3.5-10.5 (test code = 775) RED BLOOD CELL COUNT (BEAKER) 3.43 M/ L 3.93-5.22 L (test code = 761) HEMOGLOBIN (BEAKER) (test code = 9.4 GM/DL 11.2-15.7 L 410) HEMATOCRIT (BEAKER) (test code = 30.0 % 34.1-44.9 L 411) MEAN CORPUSCULAR VOLUME (BEAKER) 87.5 fL 79.4-94.8 (test code = 753) MEAN CORPUSCULAR HEMOGLOBIN 27.4 pg 25.6-32.2 (BEAKER) (test code = 751) MEAN CORPUSCULAR HEMOGLOBIN CONC 31.3 GM/DL 32.2-35.5 L (BEAKER) (test code = 752) RED CELL DISTRIBUTION WIDTH 14.8 % 11.7-14.4 H (BEAKER) (test code = 412) PLATELET COUNT (BEAKER) (test 166 K/CU MM 150-450 code = 756) MEAN PLATELET VOLUME (BEAKER) 12.5 fL 9.4-12.3 H (test code = 754) NUCLEATED RED BLOOD CELLS 0 /100 WBC 0-0 (BEAKER) (test code = 413) NEUTROPHILS RELATIVE PERCENT 65 % (BEAKER) (test code = 429) LYMPHOCYTES RELATIVE PERCENT 19 % (BEAKER) (test code = 430) MONOCYTES RELATIVE PERCENT 12 % (BEAKER) (test code = 431) EOSINOPHILS RELATIVE PERCENT 2 % (BEAKER) (test code = 432) BASOPHILS RELATIVE PERCENT 1 % (BEAKER) (test code = 437) NEUTROPHILS ABSOLUTE COUNT 3.77 K/ L 1.56-6.13 (BEAKER) (test code = 670) LYMPHOCYTES ABSOLUTE COUNT 1.10 K/ L 1.18-3.74 L (BEAKER) (test code = 414) MONOCYTES ABSOLUTE COUNT (BEAKER) 0.72 K/ L 0.24-0.36 H (test code = 415) EOSINOPHILS ABSOLUTE COUNT 0.12 K/ L 0.04-0.36 (BEAKER) (test code = 416) BASOPHILS ABSOLUTE COUNT (BEAKER) 0.03 K/ L 0.01-0.08 (test code = 417) IMMATURE GRANULOCYTES-RELATIVE 1 % 0-1 PERCENT (BEAKER) (test code = 2801) TISSUE [id number] 14:20:00Surgical Pathology Report Case: [id number] Authorizing Provider: Max Seo MD Collected: 10/21/2017 0837 Ordering Location: [facility] Received: 10/21/2017 0931 PERIOPERATIVE SERVICES Pathologist: Gilbert Anderson MD Specimen: Carotid, Right, RIGHT CAROTID PLAQUE ARTERY, RIGHT CAROTID, ENDARTERECTOMY:CALCIFIC ATHEROSCLEROTIC PLAQUE Signing Pathologist Direct Phone Line: [phone] signed by Gilbert Anderson MD on 10/29/2017 at 2:20 [id number]; [id number] stenosisRight carotid plaqueIn saline labeled "carotid, right", description "right carotid plaque" is a 3.5 cm in length x 0.9 cm in diameter michel-white to yellow-ang cylindrical previously incised portion of fibrous tissue. Sectioning reveals focal calcification. Demo Specialist sections are submitted in cassette A1 for decalcification. [id number] 05:30:00 Test Item Value Reference Range Interpretation Comments MAGNESIUM (BEAKER) (test code = 1.7 mg/dL 1.6-2.6 627) [facility] with resultsBASIC METABOLIC [id number] 05:30:00 Test Item Value Reference Range Interpretation Comments SODIUM (BEAKER) 138 meq/L 136-145 (test code = 381) POTASSIUM (BEAKER) 3.7 meq/L 3.5-5.1 (test code = 379) CHLORIDE (BEAKER) 103 meq/L 98-107 (test code = 382) CO2 (BEAKER) (test 28 meq/L 22-29 code = 355) BLOOD UREA NITROGEN 11 mg/dL 7-21 (BEAKER) (test code = 354) CREATININE (BEAKER) 0.95 mg/dL 0.57-1.25 (test code = 358) GLUCOSE RANDOM 89 mg/dL 70-105 (BEAKER) (test code = 652) CALCIUM (BEAKER) 9.0 mg/dL 8.4-10.2 (test code = 697) EGFR (BEAKER) (test 58 mL/min/1.73 ESTIMA ENEDELIA GFR IS code = 1092) sq m NOT ACCURATE CREATININE CLEARANCE IN PREDICTING GLOMERULAR FILTRATION RATE . ESTIMATED GFR I S NOT APPLICABLE FOR DIALYSIS PATIEN TS. [facility]Call [facility] with resultsCBC W/PLT COUNT & AUTO [id number] 04:49:00 Test Item Value Reference Range Interpretation Comments WHITE BLOOD CELL COUNT (BEAKER) 5.6 K/ L 3.5-10.5 (test code = 775) RED BLOOD CELL COUNT (BEAKER) 3.59 M/ L 3.93-5.22 L (test code = 761) HEMOGLOBIN (BEAKER) (test code = 10.1 GM/DL 11.2-15.7 L 410) HEMATOCRIT (BEAKER) (test code = 32.8 % 34.1-44.9 L 411) MEAN CORPUSCULAR VOLUME (BEAKER) 91.4 fL 79.4-94.8 (test code = 753) MEAN CORPUSCULAR HEMOGLOBIN 28.1 pg 25.6-32.2 (BEAKER) (test code = 751) MEAN CORPUSCULAR HEMOGLOBIN CONC 30.8 GM/DL 32.2-35.5 L (BEAKER) (test code = 752) RED CELL DISTRIBUTION WIDTH 15.2 % 11.7-14.4 H (BEAKER) (test code = 412) PLATELET COUNT (BEAKER) (test 113 K/CU MM 150-450 L code = 756) MEAN PLATELET VOLUME (BEAKER) 13.5 fL 9.4-12.3 H (test code = 754) NUCLEATED RED BLOOD CELLS 0 /100 WBC 0-0 (BEAKER) (test code = 413) NEUTROPHILS RELATIVE PERCENT 63 % (BEAKER) (test code = 429) LYMPHOCYTES RELATIVE PERCENT 23 % (BEAKER) (test code = 430) MONOCYTES RELATIVE PERCENT 9 % (BEAKER) (test code = 431) EOSINOPHILS RELATIVE PERCENT 4 % (BEAKER) (test code = 432) BASOPHILS RELATIVE PERCENT 1 % (BEAKER) (test code = 437) NEUTROPHILS ABSOLUTE COUNT 3.50 K/ L 1.56-6.13 (BEAKER) (test code = 670) LYMPHOCYTES ABSOLUTE COUNT 1.29 K/ L 1.18-3.74 (BEAKER) (test code = 414) MONOCYTES ABSOLUTE COUNT (BEAKER) 0.52 K/ L 0.24-0.36 H (test code = 415) EOSINOPHILS ABSOLUTE COUNT 0.23 K/ L 0.04-0.36 (BEAKER) (test code = 416) BASOPHILS ABSOLUTE COUNT (BEAKER) 0.03 K/ L 0.01-0.08 (test code = 417) IMMATURE GRANULOCYTES-RELATIVE 0 % 0-1 PERCENT (BEAKER) (test code = 2801) BASIC METABOLIC [id number] 05:38:00 Test Item Value Reference Range Interpretation Comments SODIUM (BEAKER) 138 meq/L 136-145 (test code = 381) POTASSIUM (BEAKER) 3.7 meq/L 3.5-5.1 (test code = 379) CHLORIDE (BEAKER) 107 meq/L 98-107 (test code = 382) CO2 (BEAKER) (test 25 meq/L 22-29 code = 355) BLOOD UREA NITROGEN 14 mg/dL 7-21 (BEAKER) (test code = 354) CREATININE (BEAKER) 0.76 mg/dL 0.57-1.25 (test code = 358) GLUCOSE RANDOM 88 mg/dL 70-105 (BEAKER) (test code = 652) CALCIUM (BEAKER) 8.5 mg/dL 8.4-10.2 (test code = 697) EGFR (BEAKER) (test 75 mL/min/1.73 ESTIMA ENEDELIA GFR IS code = 1092) sq m NOT ACCURATE CREATININE CLEARANCE IN PREDICTING GLOMERULAR FILTRATION RATE . ESTIMATED GFR I S NOT APPLICABLE FOR DIALYSIS PATIEN TS. CBC W/PLT COUNT & AUTO [id number] 05:13:00 Test Item Value Reference Range Interpretation Comments WHITE BLOOD CELL COUNT (BEAKER) 3.8 K/ L 3.5-10.5 (test code = 775) RED BLOOD CELL COUNT (BEAKER) 3.40 M/ L 3.93-5.22 L (test code = 761) HEMOGLOBIN (BEAKER) (test code = 9.6 GM/DL 11.2-15.7 L 410) HEMATOCRIT (BEAKER) (test code = 31.3 % 34.1-44.9 L 411) MEAN CORPUSCULAR VOLUME (BEAKER) 92.1 fL 79.4-94.8 (test code = 753) MEAN CORPUSCULAR HEMOGLOBIN 28.2 pg 25.6-32.2 (BEAKER) (test code = 751) MEAN CORPUSCULAR HEMOGLOBIN CONC 30.7 GM/DL 32.2-35.5 L (BEAKER) (test code = 752) RED CELL DISTRIBUTION WIDTH 15.4 % 11.7-14.4 H (BEAKER) (test code = 412) PLATELET COUNT (BEAKER) (test code 91 K/CU MM 150-450 L = 756) MEAN PLATELET VOLUME (BEAKER) 13.6 fL 9.4-12.3 H (test code = 754) NUCLEATED RED BLOOD CELLS (BEAKER) 0 /100 WBC 0-0 (test code = 413) NEUTROPHILS RELATIVE PERCENT 64 % (BEAKER) (test code = 429) LYMPHOCYTES RELATIVE PERCENT 23 % (BEAKER) (test code = 430) MONOCYTES RELATIVE PERCENT 8 % (BEAKER) (test code = 431) EOSINOPHILS RELATIVE PERCENT 4 % (BEAKER) (test code = 432) BASOPHILS RELATIVE PERCENT 0 % (BEAKER) (test code = 437) NEUTROPHILS ABSOLUTE COUNT 2.45 K/ L 1.56-6.13 (BEAKER) (test code = 670) LYMPHOCYTES ABSOLUTE COUNT 0.89 K/ L 1.18-3.74 L (BEAKER) (test code = 414) MONOCYTES ABSOLUTE COUNT (BEAKER) 0.30 K/ L 0.24-0.36 (test code = 415) EOSINOPHILS ABSOLUTE COUNT 0.14 K/ L 0.04-0.36 (BEAKER) (test code = 416) BASOPHILS ABSOLUTE COUNT (BEAKER) 0.01 K/ L 0.01-0.08 (test code = 417) IMMATURE GRANULOCYTES-RELATIVE 1 % 0-1 PERCENT (BEAKER) (test code = 2801) GLUCOSE-STAT [id number] 09:53:00 Test Item Value Reference Range Interpretation Comments GLUCOSE RANDOM (BEAKER) (test code 105 mg/dL 70-110 = 652) HGB/HCT (H&H) - STAT [id number] 09:53:00 Test Item Value Reference Range Interpretation Comments HEMOGLOBIN (BEAKER) (test code = 11.2 g/dL 12.0-15.0 L 410) HEMATOCRIT (BEAKER) (test code = 33.0 % 36.0-45.0 L 411) BASIC METABOLIC [id number] 07:45:00 Test Item Value Reference Range Interpretation Comments SODIUM (BEAKER) 136 meq/L 136-145 (test code = 381) POTASSIUM (BEAKER) 3.5 meq/L 3.5-5.1 (test code = 379) CHLORIDE (BEAKER) 107 meq/L 98-107 (test code = 382) CO2 (BEAKER) (test 21 meq/L 22-29 L code = 355) BLOOD UREA NITROGEN 17 mg/dL 7-21 (BEAKER) (test code = 354) CREATININE (BEAKER) 0.78 mg/dL 0.57-1.25 (test code = 358) GLUCOSE RANDOM 93 mg/dL 70-105 (BEAKER) (test code = 652) CALCIUM (BEAKER) 9.6 mg/dL 8.4-10.2 (test code = 697) EGFR (BEAKER) (test 73 mL/min/1.73 ESTIMA ENEDELIA GFR IS code = 1092) sq m NOT ACCURATE CREATININE CLEARANCE IN PREDICTING GLOMERULAR FILTRATION RATE . ESTIMATED GFR I S NOT APPLICABLE FOR DIALYSIS PATIEN TS. RAD, CHEST, 1 VIEW, NON [id number] 07:29:00Reason for exam:- >baselineReason for exam:->pre opShould this be performed at the bedside?->YesFINAL REPORT Chest one view AP 10/21/2017 7:29 AM CLINICAL INDICATION: baselinepre op COMPARISON: None available IMPRESSION: The cardiac silhouette is prominent. There is calcification and enlargement of the mitral valve annulus. The central pulmonary vasculature is not engorged.The lungs are well aerated. There are postoperative changes in the left humerus. Signed: Jesse Crawleyort Verified Date/Time: 10/21/2017 07:29:40 Reading Location: [facility] Radiology Reading Room HROMBIN [id number] 07:23:00 Test Item Value Reference Range Interpretation Comments PROTIME (BEAKER) (test code = 13.5 seconds 11.7-14.7 759) INR (BEAKER) (test code = 370) 1.0 <=5.9 RECOMMENDED COUMADIN/WARFARIN INR THERAPY RANGESSTANDARD DOSE: 2.0 - 3.0 Includes: PROPHYLAXIS forvenous thrombosis, systemic embolization; TREATMENT for venous thrombosis and/or pulmonary embolus.HIGH RISK: Target INR is 2.5-3.5 for patients with mechanical heart valves.CBC W/PLT COUNT & AUTO DIFFERENTIAL 2017-10-20 10:12:00 Test Item Value Reference Range Interpretation Comments WHITE BLOOD CELL COUNT (BEAKER) 5.4 K/ L 3.5-10.5 (test code = 775) RED BLOOD CELL COUNT (BEAKER) 4.39 M/ L 3.93-5.22 (test code = 761) HEMOGLOBIN (BEAKER) (test code = 12.2 GM/DL 11.2-15.7 410) HEMATOCRIT (BEAKER) (test code = 39.1 % 34.1-44.9 411) MEAN CORPUSCULAR VOLUME (BEAKER) 89.1 fL 79.4-94.8 (test code = 753) MEAN CORPUSCULAR HEMOGLOBIN 27.8 pg 25.6-32.2 (BEAKER) (test code = 751) MEAN CORPUSCULAR HEMOGLOBIN CONC 31.2 GM/DL 32.2-35.5 L (BEAKER) (test code = 752) RED CELL DISTRIBUTION WIDTH 14.7 % 11.7-14.4 H (BEAKER) (test code = 412) PLATELET COUNT (BEAKER) (test 151 K/CU MM 150-450 code = 756) MEAN PLATELET VOLUME (BEAKER) 13.0 fL 9.4-12.3 H (test code = 754) NUCLEATED RED BLOOD CELLS 0 /100 WBC 0-0 (BEAKER) (test code = 413) NEUTROPHILS RELATIVE PERCENT 72 % (BEAKER) (test code = 429) LYMPHOCYTES RELATIVE PERCENT 18 % (BEAKER) (test code = 430) MONOCYTES RELATIVE PERCENT 7 % (BEAKER) (test code = 431) EOSINOPHILS RELATIVE PERCENT 2 % (BEAKER) (test code = 432) BASOPHILS RELATIVE PERCENT 1 % (BEAKER) (test code = 437) NEUTROPHILS ABSOLUTE COUNT 3.89 K/ L 1.56-6.13 (BEAKER) (test code = 670) LYMPHOCYTES ABSOLUTE COUNT 0.99 K/ L 1.18-3.74 L (BEAKER) (test code = 414) MONOCYTES ABSOLUTE COUNT (BEAKER) 0.37 K/ L 0.24-0.36 H (test code = 415) EOSINOPHILS ABSOLUTE COUNT 0.08 K/ L 0.04-0.36 (BEAKER) (test code = 416) BASOPHILS ABSOLUTE COUNT (BEAKER) 0.03 K/ L 0.01-0.08 (test code = 417) IMMATURE GRANULOCYTES-RELATIVE 1 % 0-1 PERCENT (BEAKER) (test code = 3321)
[2020-05-16 20:35] LABS: Absolute Lymphocytes (CBC) 1.2 K/uL (0.7-4.9); Basophils % 1.3 % (0-1.3); Hematocrit 32.5 % (36.0-45.0); Lymphocytes % 23.8 % (15.3-44.8); MPV 10.4 fL (7.6-11.3); RBC Red Blood Cell Count 4.36 M/uL (3.86-4.86)
[2020-05-16] MEDS ORDERED: MECLIZINE HCL 12.5 MG TAB ONE (20:36)
[2020-05-16 20:54] LABS: ALT/SGPT 27 U/L (12-78); AST/SGOT 31 U/L (15-37); Albumin 3.1 g/dL (3.4-5.0); Alkaline Phosphatase 90 U/L (45-117); BUN Blood Urea Nitrogen 15 mg/dL (7-18); Bicarbonate 32 mmol/L (21-32); Bilirubin Direct < 0.1 mg/dL (0-0.2); Bilirubin Total 0.2 mg/dL (0.2-1.0); Glucose Level 85 mg/dL (74-106); Magnesium 2.1 mg/dL (1.8-2.4); NT PRO-BNP 1202 pg/mL (<125); Potassium 3.8 mmol/L (3.5-5.1); Protein, Total 7.5 g/dL (6.4-8.2); Sodium Level 141 mmol/L (136-145); Troponin (Emerg Dept Use Only) < 0.02 ng/mL (0.0-0.045)
--- NOTE | 2020-05-16 20:58 | RAD REPORT ---
EXAM DESCRIPTION: CT - Head C Spine Cap Geoff Sorensen - 05/16/2020 8:29 pm CLINICAL HISTORY: Head and neck injury with chest and abdominal pain status post fall. Head and neck pain . TECHNIQUE: Computed axial tomography of the head and cervical spine was obtained Computed axial tomography of the chest, abdomen and pelvis was obtained. 100 cc Isovue-300 was given intravenously coronal and sagittal reconstruction was performed. All CT scans are performed using dose optimization technique as appropriate and may include automated exposure control or mA/KV adjustment according to patient size. COMPARISON: CT head and abdomen 2017 FINDINGS: An intracranial bleed is not seen. The ventricles are normal in caliber. An extra-axial fl uid collection is not noted. Mild to moderate low-density areas within periventricular, deep and subc ortical white matter likely ischemic changes secondary to small vessel disease A cervical fracture is not seen. No dislocation is seen. A mediastinal hematoma is not noted. A pleural effusion is not present. A lung contusion is not seen. Centrilobular emphysema. Mildly displaced fracture involves the left anterior third rib. Nondisplace d fracture involves the left anterior fourth rib. No pneumothorax The liver, spleen, pancreas, adrenals, kidneys and bladder do not demonstrate an acute traumatic inju ry. Old compression fractures involve 2 thoracic vertebral bodies. Hepatic cysts. IMPRESSION: 1. No acute intracranial abnormality is seen 2. A cervical fracture is not visualized. If the patient continues have symptoms to suggest intracran ial/spinal cord pathology then MRI would be recommended. 3. Mildly displaced fracture left anterior third rib. Nondisplaced fracture left anterior fourth rib.
--- NOTE | 2020-05-16 21:00 | RAD REPORT ---
EXAM DESCRIPTION: Daisha Single View05/16/2020 8:53 pm CLINICAL HISTORY: Chest pain COMPARISON: 2019 FINDINGS: The lungs appear clear of acute infiltrate. The heart is mildly enlarged. The patient's k nown 2 left rib fractures are not seen on this exam
[2020-05-16 21:04] LABS: Protime INR 1.01
[2020-05-16 21:08] LABS: Anisocytosis 1+; Blood Morphology Comment NOTED (NOT SEEN); Platelet Estimate ADEQ; Polychromasia 1+; White Blood Cell Scan OK (OK)
--- NOTE | 2020-05-16 21:35 | EDPHYS ---
Physician Documentation [facility] Name: Jenniffer Harden Age: 74 yrs Sex: Female : 1945 Arrival Date: 05/16/2020 Time: 18:51 Bed 14 Private MD: Kasey Pinto ED Physician Benny Wei HPI: 05/16 20:10 This 74 yrs old Female presents to ER via Wheelchair with complaints of Fall cp Injury. 20:10 The patient has experienced syncope, collapsed, awoke on ground near closet in bedroom cp last Thursday night while walking from bathroom. Patient reports she remained on floor and was unable to get up from ground until she was able to call family approximately 6 hours later. Patient did not seek medical attention. 20:10 Patient c/o of continued weakness that is worse in legs and reports concern of having cp reaction to pneumonia and influenza vaccinations she received last Thursday in left upper arm. Redness of left upper arm has improved but she continues to have pain. Patient concerned about possible stroke due to history of multiple strokes in past. Patient reports dizziness for past 2 days, headache. Historical: - Allergies: 19:25 Morphine; ca1 19:25 PENICILLINS; ca1 19:25 Phenergan; ca1 - PMHx: 19:25 Arthritis; Atrial Fib; Hypertension; mitral valve prolapse; Myocardial infarction; ca1 Osteoporosis; - PSHx: 19:25 heart Stents; Cardiac Ablation; ca1 - Immunization history:: Adult Immunizations up to date, Pneumococcal vaccine is up to date, Flu vaccine is up to date. - Social history:: Smoking status: Patient/guardian denies using tobacco, the patient reports quitting approximately 5 years ago. ROS: 20:15 Constitutional: Negative for body aches, chills, fever, poor PO intake. cp 20:15 Eyes: Negative for injury, pain, redness, and discharge. cp 20:15 ENT: Negative for ear pain, sore throat, difficulty swallowing, difficulty handling secretions. 20:15 Neck: Negative for stiffness. 20:15 Cardiovascular: Negative for chest pain, edema, palpitations. 20:15 Respiratory: Negative for cough, shortness of breath, wheezing. 20:15 Abdomen/GI: Negative for abdominal pain, nausea, vomiting, and diarrhea. 20:15 Back: Positive for pain at rest, pain with movement. 20:15 MS/extremity: Negative for decreased range of motion, deformity. 20:15 Neuro: Positive for headache, syncope, weakness, of the right leg and left leg, Negative for altered mental status, numbness, tingling. Exam: 21:09 ECG was reviewed by the Attending Physician. cp 21:20 Constitutional: The patient appears in no acute distress, alert, awake, cp non-diaphoretic, non-toxic, well developed, well nourished. 21:20 Head/Face: Normocephalic, atraumatic. cp 21:20 Eyes: Periorbital structures: appear normal, Pupils: equal, round, and reactive to light and accomodation, Extraocular movements: intact throughout, Conjunctiva: normal, no exudate, no injection, Sclera: no appreciated abnormality, Lids and lashes: appear normal, bilaterally. 21:20 ENT: External ear(s): are unremarkable, Nose: is normal, Mouth: Lips: moist, Oral mucosa: moist, Posterior pharynx: Airway: no evidence of obstruction, patent. 21:20 Neck: C-spine: vertebral tenderness, that is mild, appreciated at C4 and C5, crepitus, is not appreciated, ROM/movement: nuchal rigidity, is not appreciated. 21:20 Chest/axilla: Inspection: normal, Palpation: crepitus, is not appreciated, tenderness, that is mild, of the left lateral posterior chest and left lateral anterior chest. 21:20 Cardiovascular: Rate: normal, Rhythm: regular, Edema: is not appreciated, JVD: is not appreciated. 21:20 Respiratory: the patient does not display signs of respiratory distress, Respirations: normal, no use of accessory muscles, no retractions, labored breathing, is not present, Breath sounds: are clear throughout, no decreased breath sounds, no stridor, no wheezing. 21:20 Abdomen/GI: Inspection: abdomen appears normal, Bowel sounds: active, all quadrants, Palpation: abdomen is soft and non-tender, in all quadrants. 21:20 Back: pain, that is mild, of the thoracic area, ROM is painful, with flexion. 21:20 Musculoskeletal/extremity: Exam is negative for decreased range of motion, deformity. 21:20 Skin: no rash present. 21:20 Neuro: Orientation: to person, place \T\ time. Mentation: is normal, Cerebellar function: Romberg testing is negative, normal finger to nose testing, heel to zelaya testing is normal, Motor: moves all fours, strength is normal, Sensation: light touch is decreased in the left side of face. Vital Signs: 19:11 BP 133 / 65; Pulse 43; Resp 17 S; Temp 97.1(TE); Pulse Ox 100% on R/A; Weight 77.11 kg ca1 (R); Height 5 ft. 2 in. (157.48 cm); Pain 7/10; 19:33 Pulse 72; ca1 20:15 BP 155 / 80; Pulse 70; Resp 16; Pulse Ox 95% on R/A; jb4 21:15 BP 147 / 59; Pulse 73; Resp 16; Pulse Ox 97% on R/A; jb4 22:45 BP 162 / 83; Pulse 75; Resp 16; Pulse Ox 94% on R/A; jb4 23:15 BP 154 / 81; Pulse 75; Resp 16; Pulse Ox 94% on R/A; jb4 19:11 Body Mass Index 31.09 (77.11 kg, 157.48 cm) ca1 NIH Stroke Scale Scores: 21:18 NIHSS Score: 1 cp MDM: 19:32 Patient medically screened. cp 20:00 Differential Diagnosis: cerebrovascular accident, drug effect, GI bleed, idiopathic cp syncope, seizure, sepsis, vasovagal episode. 20:00 ED course: Patient is not a candidate for tpa as onset of symptoms was over 24 hours cp ago. 21:15 Data reviewed: vital signs, nurses notes, lab test result(s), EKG, radiologic studies, cp CT scan, plain films. 21:15 Test interpretation: by ED physician or midlevel provider: ECG. cp 21:30 Physician consultation: Guanaco HALL was called at 21:30, was contacted at 21:30, cp regarding admission, to the telemetry unit. patient's condition. 21:30 Response to treatment: the patient's symptoms have mildly improved after treatment, and cp as a result, I will admit patient. 05/16 19:53 Order name: Basic Metabolic Panel; Complete Time: 21:07 cp 05/16 21:07 Interpretation: Normal except: GFR 66. cp 05/16 19:53 Order name: CBC with Diff; Complete Time: 21:09 cp 05/16 21:08 Interpretation: Normal except: HGB 10.2; HCT 32.5; MCV 74.6; MCH 23.3; MCHC 31.2; RDW cp 20.6. 05/16 19:53 Order name: LFT's; Complete Time: 21:07 cp 05/16 19:53 Order name: Magnesium; Complete Time: 21:07 cp 05/16 19:53 Order name: NT PRO-BNP; Complete Time: 21: cp 05/16 19:53 Order name: PT-INR; Complete Time: 21: cp 05/16 19:53 Order name: Troponin (emerg Dept Use Only); Complete Time: 21: cp 05/16 19:53 Order name: XRAY Chest (1 view); Complete Time: 21: cp 05/16 19:53 Order name: CT Traumagram (Head C Spine CAP W Con); Complete Time: 21:07 cp 05/16 19:53 Order name: Urine Microscopic Only 05/16 20:37 Order name: CBC Smear Scan; Complete Time: 21:09 EDMS 05/16 21:44 Order name: CREATININE WHOLE BLOOD; Complete Time: 22:13 EDMS 05/16 19:53 Order name: EKG; Complete Time: 19:54 cp 05/16 19:53 Order name: Cardiac monitoring; Complete Time: 20:45 cp 05/16 19:53 Order name: EKG - Nurse/Tech; Complete Time: 21:15 cp 05/16 19:53 Order name: IV Saline Lock; Complete Time: 20:21 cp 05/16 19:53 Order name: Labs collected and sent; Complete Time: 20:21 cp 05/16 19:53 Order name: O2 Per Protocol; Complete Time: 20:21 cp 05/16 19:53 Order name: O2 Sat Monitoring; Complete Time: 20:20 cp EC:09 Rate is 71 beats/min. Rhythm is regular. CA interval is normal. QRS interval is normal. cp QT interval is normal. T waves are Flattened in leads aVL, aVR. Interpreted by me. Reviewed by me. Administered Medications: 21:00 Drug: Meclizine 25 mg Route: PO; [facility] 22:00 Follow up: Response: No adverse reaction [facility] 22:06 Drug: fentaNYL (PF) 25 mcg Route: IVP; Site: left antecubital; jb4 22:30 Follow up: Response: No adverse reaction; Pain is decreased; RASS: Alert and Calm (0) jb4 Disposition: 05/17 07:07 Co-signature as Attending Physician, Benny Wei MD. mh7 Disposition: 05/16/20 21:35 Hospitalization ordered by Vipin Olivarez for Observation. Preliminary diagnosis are Syncope and collapse, Dizziness and giddiness, Multiple fractures of ribs, left side. - Bed requested for Telemetry/MedSurg (observation). - Status is Observation. mw2 - Condition is Stable. - Problem is new. - Symptoms have improved. NIH Stroke Scale - NIH Stroke Score Date: 05/16/2020 Time: 21:18 Total Score = 1 1a. Level of Consciousness (LOC) - 0(Alert) 1b. Level of Consciousness (LOC) (Year \T\ Age) - 0(Both) 1c. LOC Commands (Open \T\ Closes Eyes/[employer]) - 0(Both) 2. Best Gaze (Lateral Gaze Paresis) - 0(Normal) 3. Visual Field Loss - 0(No visual loss) 4. Facial Palsy - 0(Normal) 5a. Left Arm: Motor (10-second hold) - 0(No drift) 5b. Right Arm: Motor (10-second hold) - 0(No drift) 6a. Left Leg: Motor (5-second hold - always test supine) - 0(No drift) 6b. Right Leg: Motor (5-second hold - always test supine) - 0(No drift) 7. Limb Ataxia (finger/nose \T\ heel/zelaya - test with eyes open) - 0(Absent) 8. Sensory Loss (pinprick arms/legs/face) - 1(Mild to moderate loss) 9. Best Language: Aphasia (description/naming/reading) - 0(No aphasia) 10. Dysarthria (speech clarity - read or repeat words) - 0(Normal) 11. Extinction and Inattention (visual/tactile/auditory/spatial/personal) - 0(No abnormality) Initials: cp Signatures: Dispatcher [employer] EDMS [place], ABDIRAHMAN-C ORTHODONTIC TECHNICIAN-Cla1 Francisco Tompkins PA PA cp Garcia, Cindy, RN RN Devin Alvarado RN RN jb4 Philomena Rodriges mw2 Nya Morris RN RN ca1 Benny Wei MD MD mh7 Corrections: (The following items were deleted from the chart) 05/16 22:46 21:35 Hospitalization Ordered by Vipin Olivarez MD for Observation. Preliminary cg diagnosis is Syncope and collapse; Dizziness and giddiness; Multiple fractures of ribs, left side. Bed requested for Telemetry/MedSurg (observation). Status is Observation. Condition is Stable. Problem is new. Symptoms have improved. cp 23:32 22:46 05/16/2020 21:35 Hospitalization Ordered by Vipin Olivarez MD for mw2 Observation. Preliminary diagnosis is Syncope and collapse; Dizziness and giddiness; Multiple fractures of ribs, left side. Bed requested for Telemetry/MedSurg (observation). Status is Observation. Condition is Stable. Problem is new. Symptoms have improved. cg
--- NOTE | 2020-05-16 21:35 | ER ---
Nurse's Notes [facility] Name: Jenniffer Harden Age: 74 yrs Sex: Female : 1945 Arrival Date: 05/16/2020 Time: 18:51 Bed 14 Private MD: Kasey Pinto Diagnosis: Syncope and collapse;Dizziness and giddiness;Multiple fractures of ribs, left side Presentation: 05/16 19:11 Chief complaint: Patient's son or daughter states: [id number]: Thursday, last week ca1 had Flu and Pneumonia shots, both shots given on the L arm. In the evening, it started hurting and was very hot, where the shots were. I felt dizzy and weak and had fever at 99F to 100F. I also needed to get up from bed every hour to urinate. I remember going out of bed at 0300 then I woke up on the floor, face down. I can't remember falling. I was in and out of consciousness until I got back to the bedroom at 0900 to call my grandson. Did not seek medical consult. Now, C/O headache, bruising on R forearm, bleeding from the nose at the time of the fall, L side rib pain. Pt states, "I just feel like my balance is off and my equilibrium". Coronavirus screen: Client denies travel out of the [place] in the last 14 days. At this time, the client does not indicate any symptoms associated with coronavirus-19. The client denies any previous COVID testing. Ebola Screen: Patient negative for fever greater than or equal to 101.5 degrees Fahrenheit, and additional compatible Ebola Virus Disease symptoms Patient denies exposure to infectious person. Patient denies travel to an Ebola-affected area in the 21 days before illness onset. No symptoms or risks identified at this time. Initial Sepsis Screen: Does the patient meet any 2 criteria? No. Patient's initial sepsis screen is negative. Does the patient have a suspected source of infection? No. Patient's initial sepsis screen is negative. Risk Assessment: Do you want to hurt yourself or someone else? Patient reports no desire to harm self or others. Onset of symptoms was May 16, 2020. 19:11 Method Of Arrival: Wheelchair ca1 19:11 Acuity: RUTHIE 2 ca1 Historical: - Allergies: 19:25 Morphine; ca1 19:25 PENICILLINS; ca1 19:25 Phenergan; ca1 - PMHx: 19:25 Arthritis; Atrial Fib; Hypertension; mitral valve prolapse; Myocardial infarction; ca1 Osteoporosis; - PSHx: 19:25 heart Stents; Cardiac Ablation; ca1 - Immunization history:: Adult Immunizations up to date, Pneumococcal vaccine is up to date, Flu vaccine is up to date. - Social history:: Smoking status: Patient/guardian denies using tobacco, the patient reports quitting approximately 5 years ago. Screenin:20 Abuse screen: Denies threats or abuse. Nutritional screening: No deficits noted. jb4 Tuberculosis screening: No symptoms or risk factors identified. Fall Risk None identified. Assessment: 19:20 General: Appears in no apparent distress. uncomfortable, Behavior is calm, cooperative, jb4 appropriate for age. Pain: Complains of pain in Generalized body pain, headache. Pain does not radiate. Pain currently is 7 out of 10 on a pain scale. Quality of pain is described as aching. Neuro: Level of Consciousness is awake, alert, obeys commands, Oriented to person, place, time, situation. Cardiovascular: Patient's skin is warm and dry. Respiratory: Airway is patent Respiratory effort is even, unlabored, Respiratory pattern is regular, symmetrical. GI: No signs and/or symptoms were reported involving the gastrointestinal system. : No signs and/or symptoms were reported regarding the genitourinary system. EENT: No signs and/or symptoms were reported regarding the EENT system. Derm: Skin is intact, Skin is pink, warm \\T\\ dry. Musculoskeletal: Circulation, motion, and sensation intact. Range of motion: intact in all extremities. 20:30 Reassessment: Patient appears in no apparent distress at this time. Patient and/or jb4 family updated on plan of care and expected duration. Pain level reassessed. Patient is alert, oriented x 3, equal unlabored respirations, skin warm/dry/pink. 21:30 Reassessment: Patient appears in no apparent distress at this time. Patient and/or jb4 family updated on plan of care and expected duration. Pain level reassessed. Patient is alert, oriented x 3, equal unlabored respirations, skin warm/dry/pink. 22:30 Reassessment: Patient appears in no apparent distress at this time. Patient and/or jb4 family updated on plan of care and expected duration. Pain level reassessed. Patient is alert, oriented x 3, equal unlabored respirations, skin warm/dry/pink. 23:01 Reassessment: Patient appears in no apparent distress at this time. Patient and/or jb4 family updated on plan of care and expected duration. Pain level reassessed. Patient is alert, oriented x 3, equal unlabored respirations, skin warm/dry/pink. Report given jami Amin RN. 23:30 Reassessment: Patient appears in no apparent distress at this time. Patient and/or jb4 family updated on plan of care and expected duration. Pain level reassessed. Patient is alert, oriented x 3, equal unlabored respirations, skin warm/dry/pink. Vital Signs: 19:11 BP 133 / 65; Pulse 43; Resp 17 S; Temp 97.1(TE); Pulse Ox 100% on R/A; Weight 77.11 kg ca1 (R); Height 5 ft. 2 in. (157.48 cm); Pain 7/10; 19:33 Pulse 72; ca1 20:15 BP 155 / 80; Pulse 70; Resp 16; Pulse Ox 95% on R/A; jb4 21:15 BP 147 / 59; Pulse 73; Resp 16; Pulse Ox 97% on R/A; jb4 22:45 BP 162 / 83; Pulse 75; Resp 16; Pulse Ox 94% on R/A; jb4 23:15 BP 154 / 81; Pulse 75; Resp 16; Pulse Ox 94% on R/A; jb4 19:11 Body Mass Index 31.09 (77.11 kg, 157.48 cm) ca1 NIH Stroke Scale Scores: 21:18 NIHSS Score: 1 cp ED Course: 18:51 Patient arrived in ED. mr 18:51 Kasey Pinto MD is Private Physician. mr 19:20 Patient has correct armband on for positive identification. Bed in low position. Call jb4 light in reach. Side rails up X 1. teletypesetter monitor on. Pulse ox on. NIBP on. 19:23 Triage completed. ca1 19:25 Arm band placed on right wrist. ca1 19:30 Devin Mcgee RN is Primary Nurse. jb4 19:31 Francisco Tompkins PA is PHCP. cp 19:31 Benny Wei MD is Attending Physician. cp 20:29 CT Traumagram (Head C Spine CAP W Con) In Process Unspecified. EDMS 20:54 XRAY Chest (1 view) In Process Unspecified. EDMS 21:05 Inserted saline lock: 20 gauge in left antecubital area, using aseptic technique. jb4 21:34 Vipin Olivarez MD is Hospitalizing Provider. cp 23:03 No provider procedures requiring assistance completed. Patient admitted, IV remains in jb4 place. Administered Medications: 21:00 Drug: Meclizine 25 mg Route: PO; jb4 22:00 Follow up: Response: No adverse reaction jb4 22:06 Drug: fentaNYL (PF) 25 mcg Route: IVP; Site: left antecubital; jb4 22:30 Follow up: Response: No adverse reaction; Pain is decreased; RASS: Alert and Calm (0) jb4 Outcome: 21:35 Decision to Hospitalize by Provider. cp 23:03 Admitted to Med/surg accompanied by [facility], via stretcher, room 213, with chart, Report jb4 called to INOCENCIO Amin 23:03 Condition: stable 23:03 Discharge instructions given to patient, Instructed on the need for admit, Demonstrated understanding of instructions. 23:32 Patient left the ED. mw2 NIH Stroke Scale - NIH Stroke Score Date: 05/16/2020 Time: 21:18 Total Score = 1 1a. Level of Consciousness (LOC) - 0(Alert) 1b. Level of Consciousness (LOC) (Year \\T\\ Age) - 0(Both) 1c. LOC Commands (Open \\T\\ Closes Eyes/Data Modeling Specialist) - 0(Both) 2. Best Gaze (Lateral Gaze Paresis) - 0(Normal) 3. Visual Field Loss - 0(No visual loss) 4. Facial Palsy - 0(Normal) 5a. Left Arm: Motor (10-second hold) - 0(No drift) 5b. Right Arm: Motor (10-second hold) - 0(No drift) 6a. Left Leg: Motor (5-second hold - always test supine) - 0(No drift) 6b. Right Leg: Motor (5-second hold - always test supine) - 0(No drift) 7. Limb Ataxia (finger/nose \\T\\ heel/zelaya - test with eyes open) - 0(Absent) 8. Sensory Loss (pinprick arms/legs/face) - 1(Mild to moderate loss) 9. Best Language: Aphasia (description/naming/reading) - 0(No aphasia) 10. Dysarthria (speech clarity - read or repeat words) - 0(Normal) 11. Extinction and Inattention (visual/tactile/auditory/spatial/personal) - 0(No abnormality) Initials: cp Signatures: Dispatcher [employer] EDAK Morena Fish mr Francisco Tompkins PA PA cp Bryson, James, RN RN jb4 Philomena Rodriges mw2 Nya Morris RN RN ca1 Corrections: (The following items were deleted from the chart) 19:26 19:11 Chief complaint: Patient's son or daughter states: [id number]: ca1 Thursday, last week had Flu and Pneumonia shots, both shots given on the L arm. In the evening, it started hurting and was very hot, where the shots were. I felt dizzy and weak and had fever at 99F to 100F. I also needed to get up from bed every hour to urinate. I remember going out of bed at 0300 then I woke up on the floor, face down. I can't remember falling. I was in and out of consciousness until I got back to the bedroom at 0900 to call my grandson. Did not seek medical consult. Now, C/O headache, bruising on R forearm, bleeding from the nose at the time of the fall, L side rib pain. ca1 19:31 19:11 Acuity: RUTHIE 3 ca1 ca1
[2020-05-16] MEDS ORDERED: FENTANYL CITR 100 MCG/2 ML ONE (22:01)
--- NOTE | 2020-05-16 22:16 | P.HP ---
Certification for Inpatient Patient admitted to: Observation With expected LOS: <2 Midnights Patient will require the following post-hospital care: None Practitioner: I am a practitioner with admitting privileges, knowledge of patient current condition, hospital course, and medical plan of care. Services: Services provided to patient in accordance with Admission requirements found in Title 42 Section 412.3 of the Code of Federal Regulations <[place] - Last Filed: 05/16/20 22:10> Patient History Date of Service: 05/16/20 Primary Care Provider: Dr. Pinto Reason for admission: Syncope, dizziness History of Present Illness: 74-year-old female with history of atrial fibrillation status post ablation, history of CVA x6, hypertension, CAD presents emergency department for generalized weakness, dizziness. Patient reports that approximately 1 week ago she got both her a pneumococcal and influenza vaccination both and her right arm. Patient noticed she is running low-grade fever and had enlarged lymph nodes. The following day. That night she was having to get up to the bathroom frequently and at around 3:00 a.m. she woke up on the floor, unaware of how she got there. Patient did not make it to her bed and tell approximately 9:00 a.m. the following morning. Patient has been feeling very weak, tired and slightly dizzy since last week. Patient had telemedicine visit with her primary care doctor today who prefer that she come into the hospital for further evaluation. During her evaluation in the emergency department Patient received CT head, C- spine, abdomen and pelvis with contrast that showed only mildly displaced fractured left anterior 3rd rib and nondisplaced fracture of the left anterior 4th rib. It is assume these are from her fall approximately 1 week prior. No acute findings of the head or neck. Labs only remarkable for mildly elevated BNP at 1202. Hemoglobin 10.2, hematocrit 32.5, MCV 74.6. During her stay in the emergency department patient did have a couple episodes of bradycardia as low as 41. Appeared to be sinus bradycardia. Patient also reports that approximately 1-2 years ago she had an endarterectomy along with her ablation for atrial fibrillation at [facility]. ED provider wishes to admit patient for further evaluation and management. I saw the patient in the emergency department she is awake, alert, oriented x3. Patient reports mild pain her left anterior chest, mild dizziness. Patient with no focal neurological deficits noted. Patient be admitted for further evaluation and management. - Past Medical/Surgical History Diabetic: No -: HTN -: Osteoporosis -: NM -: Atrial fibrillation status post ablation -: CAD -: Mitral Valve Prolapse -: Hyperlipidemia -: History of Tobacco use -: arthritis -: arthritis -: Iron-deficiency anemia -: cholecystectomy -: hysterectomy -: left hip surgery -: left arm surgery titanium -: cardiac catherization - stent placement X 1 -: back surgery -: broken sternum -: ovarian tumor removal Psychosocial/ Personal History: , 4-Children, Retired. - Family History Sister -: Heart disease, Hypertension Notes: a.fib Mother -: Cancer, Blood disorders Notes: ovarian Father -: Lung disease, Cancer - Social History Smoking Status: Former smoker Alcohol use: No CD- Drugs: No Caffeine use: Yes <[place] - Last Filed: 05/16/20 22:10> Date of Service: 05/20/20 <Vipin Olivarez - Last Filed: 05/20/20 15:32> Allergies Penicillins Allergy (Verified 10/06/17 14:02) UNK promethazine HCl [From Phenergan] Adverse Reaction (Intermediate, Verified 10/06/17 14:02) unk morphine Adverse Reaction (Verified 05/16/20 23:47) hallucination Home Medications: NK [No Home Meds] 05/17/20 Review of Systems Respiratory: Pleuritic Pain Neurological: Weakness, As per HPI <[place] - Last Filed: 05/16/20 22:10> Physical Examination - Physical Exam General: Alert, In no apparent distress HEENT: Atraumatic, PERRLA, Mucous membr. moist/pink, EOMI Neck: Supple Respiratory: Clear to auscultation bilaterally, Normal air movement Cardiovascular: Regular rate/rhythm, Normal S1 S2 Gastrointestinal: Normal bowel sounds, No tenderness Musculoskeletal: No tenderness Integumentary: No rashes Neurological: Normal gait, Normal speech, Normal strength at 5/5 x4 extr, Normal tone, Normal affect - Studies Laboratory Data (last 24 hrs) 05/16/20 20:15: PT 11.9, INR 1.01 05/16/20 20:15: WBC 5.0, Hgb 10.2 L, Hct 32.5 L, Plt Count 162 05/16/20 20:15: Sodium 141, Potassium 3.8, BUN 15, Creatinine 0.84, Glucose 85, Magnesium 2.1, Total Bilirubin 0.2, AST 31, ALT 27, Alkaline Phosphatase 90 <[place] - Last Filed: 05/16/20 22:10> Assessment and Plan - Plan Assessment Syncope, bradycardia Weakness, dizziness Hypertension History of atrial fibrillation with ablation now sinus rhythm Iron deficiency anemia Plan Syncope, bradycardia: Monitor on telemetry, cardiology consult in place. Will obtain echocardiogram, MRI stroke protocol, ultrasound carotids. Patient had endarterectomy approximately 1-2 years prior. DVT prophylaxis Lovenox 40 mg subcutaneous once daily. Weakness, dizziness: MRI stroke protocol ordered, continue as above. Will have patient evaluated by physical therapy. Hypertension: Obtain and continue home medications. History of atrial fibrillation with ablation now sinus rhythm: Patient on sinus rhythm, will continue to monitor. Iron deficiency anemia: Hemoglobin, hematocrit stable. Patient known iron- deficiency anemia. Obtain and continue home medications. Discharge Plan: Home Plan to discharge in: 24 Hours - Advance Directives Does patient have a Living Will: No Does patient have a Durable POA for Healthcare: Yes - Code Status/Comfort Care Code Status Assessed: Yes (Patient is full code) Critical Care: No Time Spent Managing Pts Care (In Minutes): 55 <[place] - Last Filed: 05/16/20 22:10> Physician Review Additional Text: Plan of care discussed with [place], and I agree with the management plan as noted above. <Vipin Olivarez - Last Filed: 05/20/20 15:32>
[2020-05-16] MEDS ORDERED: ACETAMINOPHEN 500 MG TAB PO PRN (23:34)
[2020-05-16] MEDS ORDERED: ONDANSETRON 4 MG/2 ML VIAL IV PRN (23:34)
[2020-05-16] MEDS ORDERED: TRAMADOL HCL 50 MG TAB PO PRN (23:34)
[2020-05-16] MEDS ORDERED: HYDROCODONE/APAP 5/325 MG TAB PO PRN (23:34)
[2020-05-16 23:45] VITALS: O2SAT 94; BMI 32.3
[2020-05-17] MEDS: NA CHLORIDE 0.9% 1,000 ML IV SCH ×2 (00:06→11:09)
[2020-05-17] MEDS ORDERED: NA CHLORIDE 0.9% 500 ML IV ONE (02:00)
[2020-05-17 03:35] LABS: Absolute Lymphocytes (CBC) 1.3 K/uL (0.7-4.9); Basophils % 1.5 % (0-1.3); Hematocrit 31.1 % (36.0-45.0); Lymphocytes % 24.3 % (15.3-44.8); MPV 10.6 fL (7.6-11.3); RBC Red Blood Cell Count 4.12 M/uL (3.86-4.86)
[2020-05-17 04:01] LABS: BUN Blood Urea Nitrogen 13 mg/dL (7-18); Bicarbonate 29 mmol/L (21-32); Glucose Level 87 mg/dL (74-106); HDL Cholesterol 61 mg/dL (40-60); LDL Cholesterol, Calculated 125 (<130); Potassium 3.5 mmol/L (3.5-5.1); Sodium Level 139 mmol/L (136-145); Troponin I < 0.02 ng/mL (0.0-0.045)
--- NOTE | 2020-05-17 07:04 | EKG ---
Test Date: 2020-05-16 Test Time: 20:57:38 Radiation Oncology Manager: EHSAN MEASUREMENT RESULTS: Intervals: Rate: 71 [place]: 168 QRSD: 78 QT: 430 QTc: 467 [place]: P: 65 [place]: 168 QRS: 16 T: 70 INTERPRETIVE STATEMENTS: Sinus rhythm with premature atrial complexes and premature ventricular complexes or fusion complexes Otherwise normal ECG Compared to ECG 02/10/2019 08:29:04 Atrial premature complex(es) now present Fusion complex(es) now present Ventricular premature complex(es) now present Sinus bradycardia no longer present Myocardial infarct finding no longer present Electronically Signed On 05-17-20 07:03:29 CDT by Ben Munroe
[2020-05-17] MEDS ORDERED: POTASSIUM CL SA 10 MEQ TAB PO ONE (08:00)
[2020-05-17] MEDS ORDERED: ENOXAPARIN 40 MG/0.4 ML SQ SCH (09:00)
--- NOTE | 2020-05-17 10:19 | RAD REPORT ---
EXAM DESCRIPTION: MRI - Brain W/Wo Cont - 05/17/2020 10:02 am CLINICAL HISTORY: DIZZINESS, SYNCOPE Headache, drowsiness, history of CVA COMPARISON: MRA Head Wo Cont dated 05/17/2020 TECHNIQUE: Multi-sequence, multiplanar MR imaging of the brain was performed with contrast. FINDINGS: No intracranial hemorrhage, hydrocephalus, or extra-axial fluid collection.Moderate T2 and FLAIR hyperintensity in the periventricular and deep white matter is noted likely chronic microvascu lar ischemic changes. No edema or shift of midline structures. No intracranial mass. DWI is negative for acute CVA. The midline structures are normally formed. Mastoid air cells and paranasal sinuses are clear. Post-contrast images show no abnormal enhancement to suggest tumor or infection. IMPRESSION: Negative for acute CVA or other acute intracranial abnormality. No pathologic post-contrast enhancement suspected.
--- NOTE | 2020-05-17 10:31 | RAD REPORT ---
EXAM DESCRIPTION: MRI - MRA Neck W/Wo Cont - 05/17/2020 10:02 am CLINICAL HISTORY: DIZZINESS, SYNCOPE Headache, drowsiness, CVA symptomology COMPARISON: Carotid Artery Bilateral dated 05/17/2020 FINDINGS: Contrast enhance 2D [id number] MR angiography of the neck vessels was performed. A left aortic arch is noted. Mild atheromatous plaquing suspected in both common carotid arteries. No significant right-sided carotid bulb narrow thickening seen. Atheromatous narrowing of the left carotid bulb/proximal left internal carotid artery suspected with stenosis of less than 50% by NASCET criteria identified. Antegrade flow seen in both vertebral arteries. IMPRESSION: Atherosclerotic narrowing of the left carotid bulb/left proximal ICA suspected, less remberto n 50% by NASCET criteria.
--- NOTE | 2020-05-17 10:55 | RAD REPORT ---
EXAM DESCRIPTION: - - 05/17/2020 10:11 am CLINICAL HISTORY: syncope Headache, drowsiness COMPARISON: Head C Spine Mpr Wo Con dated 07/11/2017 TECHNIQUE: Real-time sonographic evaluation of both carotid systems was performed. Doppler interroga tion was performed with waveform tracing bilaterally. FINDINGS: Normal high resistance waveforms are noted in both external carotid arteries. The common c arotid arteries and internal carotid arteries show normal low resistance waveforms. Mild atherosclero tic plaquing is seen in both common carotid arteries. [id number] atheromatous plaquing is seen in the proximal internal carotid arteries, greater on the left. Peak systolic and end diastolic velocity values and the ICA/CCA ratios are in the non-hemod ynamically significant range. Antegrade flow seen in both vertebral arteries. IMPRESSION: Mild to moderate atheromatous plaquing is seen in both proximal internal carotid arterie s, greater on the left. No evidence of a hemodynamically significant stenosis.
--- NOTE | 2020-05-17 10:58 | RAD REPORT ---
EXAM DESCRIPTION: MRI - MRA Head Wo Cont - 05/17/2020 10:50 am CLINICAL HISTORY: syncope, dizziness CVA COMPARISON: Head Brain Wo Cont dated 02/06/2018 FINDINGS: 3D noncontrast [id number] MR angiography of the [place] was performed. No aneurysm, flow-limiting stenosis or vascular malformation is seen. Forward flow seen in the verteb ral arteries. Left-sided vertebral artery is mildly dominant. The visualized dural venous sinuses appear patent. IMPRESSION: No significant flow abnormality of the [place] is identified.
[2020-05-17 12:12] VITALS: BP 182/80; TEMP 98.3
--- NOTE | 2020-05-17 14:06 | P.DS ---
Admission Date: 05/16/20 Discharge Date: 05/17/20 Primary Care Provider: Dr. Pinto Disposition: DC HOME/HOME HEALTH CARE Discharge Condition: GOOD Reason for Admission: Syncope, dizziness Consultations: Cardiology - Dr. Munroe Procedures: CXR (05/16): The lungs appear clear of acute infiltrate. The heart is mildly enlarged. The patient's known 2 left rib fractures are not seen on this exam CT head/C-spine/chest/abdomen/pelvis (05/16): 1. No acute intracranial abnormality is seen 2. A cervical fracture is not visualized. If the patient continues have symptoms to suggest intracranial/spinal cord pathology then MRI would be recommended. 3. Mildly displaced fracture left anterior third rib. Nondisplaced fracture left anterior fourth rib. Carotid artery ultrasound (05/16): Mild to moderate atheromatous plaquing is seen in both proximal internal carotid arteries, greater on the left. No evidence of a hemodynamically significant stenosis. MRI of brain stroke protocol (05/17): Negative for acute CVA or other acute intracranial abnormality. No pathologic post contrast enhancement suspected. No significant flow abnormalities of the [place] is identified. Neck MRA: Atherosclerotic narrowing of the left carotid bulb/left proximal ICA suspected, less than 50% by NASCET criteria. Problem list: Syncope, bradycardia Weakness, dizziness Mildly displaced L anterior 3rd rib fracture & nondisplaced L anterior 4th rib fracture Hypertension History of atrial fibrillation with ablation, now sinus rhythm Iron deficiency anemia Brief History of Present Illness: 74yo F, PMH: Afib s/p ablation, CVA x6, HTN, CAD, JOSE LUIS s/p CEA who presented to the ED for generalized weakness and dizziness over the past week. She reported symptoms began in the evening after receiving both pneumococcal and influenza vaccine in her left shoulder. She reported a low grade fever and enlarged lymph nodes. The following the evening she woke up around 3:00 a[address] on the floor, unaware of how she got there with profound weakness and unable to get up to her bed until ~ 6 hr later. Since then she has continued to feel very weak, tired, and slightly dizzy, but overall has been feeling this is improved slowly. She has telemedicine visit with PCP advised presentation to the ED. During her evaluation in the emergency department Patient received CT head, C- spine, abdomen and pelvis with contrast that showed only mildly displaced fractured left anterior 3rd rib and nondisplaced fracture of the left anterior 4th rib. It is assume these are from her fall approximately 1 week prior. No acute findings of the head or neck. Labs only remarkable for mildly elevated BNP at 1202. Hemoglobin 10.2, hematocrit 32.5, MCV 74.6. During her stay in the emergency department patient did have a couple episodes of bradycardia as low as 41. Appeared to be sinus bradycardia. Patient also reports that approximately 1-2 years ago she had an endarterectomy along with her ablation for atrial fibrillation at [facility]. Hospital Course: The patient was brought to the hospital under observation. She underwent further evaluation for syncopal episode with MRI/MRA and carotid ultrasound. She was also monitored on telemetry (HR: 70s, sinus rhythm). Her workup as noted above was negative. Patient was unable to confirm all her home medications, but did state she was taking Sotalol. Cardiology was consulted and recommended discontinuation of her Sotalol. She was evaluated by physical therapy recommended home PT. The patient was feeling better and was requesting discharge home. Patient was discharged home with instructions to follow up closely with her PCP next 3-5 days, and cardiology in 2-3 weeks. Her reaction to the immunizations and possible bradycardia due to sotalol and decreased PO intake likely lead to her syncopal event. She did have ~5cm diameter erythema of L shoulder at injection site, and she reported this had significantly improved compared to several days ago. She remained afebrile, no leukocytosis, no systemic signs of infection. The area of erythema was outlined, patient was advised if the erythema spreads beyond the line to call PCP for concern for developing cellulitis. Shortly after admission, patient was noted to have positive orthostatics vitals. Her blood pressure went from 151/68 to 112/59 from lying to sitting. She continued to receive IV fluids orthostatics were recheck to several hr later and were negative. Vital Signs/Physical Exam: Temp Pulse Resp BP Pulse Ox 98.3 F 72 16 182/80 H 94 05/17/20 12:00 05/17/20 12:00 05/17/20 12:00 05/17/20 12:00 05/17/20 12:00 General: Alert, In no apparent distress, Oriented x3 HEENT: Mucous membr. moist/pink, Sclerae nonicteric Neck: Supple, JVD not distended Respiratory: Clear to auscultation bilaterally, Normal air movement Cardiovascular: No edema, Regular rate/rhythm, Normal S1 S2 Gastrointestinal: Soft and benign, Non-distended, No tenderness Musculoskeletal: No erythema, No tenderness Integumentary: No rashes, Other (erythema ~ 5cm diameter on L shoulder at injection site, blanching, no added warmth, mildly TTP) Neurological: Normal speech, Normal affect Laboratory Data at Discharge: WBC 5.4 K/uL (4.3-10.9) 05/17/20 03:18 Hgb 9.5 g/dL (12.0-15.0) L 05/17/20 03:18 Hct 31.1 % (36.0-45.0) L 05/17/20 03:18 Plt Count 159 K/uL (152-406) 05/17/20 03:18 PT 11.9 SECONDS (9.5-12.5) 05/16/20 20:15 INR 1.01 05/16/20 20:15 Sodium 139 mmol/L (136-145) 05/17/20 03:18 Potassium 3.5 mmol/L (3.5-5.1) 05/17/20 03:18 BUN 13 mg/dL (7-18) 05/17/20 03:18 Creatinine 0.82 mg/dL (0.55-1.3) 05/17/20 03:18 Glucose 87 mg/dL (74-106) 05/17/20 03:18 Magnesium 2.0 mg/dL (1.8-2.4) 05/17/20 03:18 Total Bilirubin 0.2 mg/dL (0.2-1.0) 05/16/20 20:15 AST 31 U/L (15-37) 05/16/20 20:15 ALT 27 U/L (12-78) 05/16/20 20:15 Alkaline Phosphatase 90 U/L (45-117) 05/16/20 20:15 Troponin I < 0.02 ng/mL (0.0-0.045) 05/17/20 10:46 Triglycerides 127 mg/dL (<150) 05/17/20 03:18 Cholesterol 211 mg/dL (<200) H 05/17/20 03:18 HDL Cholesterol 61 mg/dL (40-60) H 05/17/20 03:18 Cholesterol/HDL Ratio 3.46 05/17/20 03:18 Home Medications: NK [No Home Meds] 05/17/20 Patient Discharge Instructions: Follow up with PCP within 3-5 days. Follow up with Dr. Munroe in 2-3 weeks. Stop taking Sotalol. Diet: AHA Activity: Ad cayla Followup: Ben Munroe MD [ACTIVE - CAN ADMIT] - Time spent managing pt's care (in minutes): 35
--- NOTE | 2020-05-21 09:52 | CON ---
Date of Consultation: 05/17/2020 Reason For Consultation: Syncope and bradycardia. History Of Present Illness: The patient was admitted to Dr. Olivarez. Ms. Harden is a 74-year-old wom an who has a history of chronic atrial fibrillation, hypertension, mitral valve prolapse, coronary ar rogelio disease, status post stent, she also has history of atrial fibrillation status post ablation. S he came in with weakness, bradycardia, and syncope. Her heart rate was noted to be 43 on presentatio n and is now in the 70s. She denied any nausea, vomiting, diaphoresis. Denied any PND, orthopnea, p edal edema, or palpitation. Denied any chest pain. Denied any fever or chills. She has already rul ed out for an CA. Her BNP was 1202. Her hemoglobin was 9.5. Ms. Harden was unsure of the medicati on she was taking. Allergies: PENICILLIN AND MORPHINE. Review of Systems: Negative. Social History: Negative. Family History: Noncontributory. Physical Examination: Vital Signs: When I saw her, she was in a sinus rhythm at a rate of 70. Her blood pressure was norm al. She was afebrile. General: She was in no acute distress. HEENT: Negative. Neck: Supple without any bruit, lymphadenopathy, JVD, or thyromegaly. Chest: Clear to auscultation and percussion. Cardiac: Exam revealed a regular rhythm and rate with an S4 gallop. No murmurs or rubs. Abdomen: Benign. Extremities: Revealed no clubbing, cyanosis, or edema. Diagnostic Data: As stated earlier. Impression And Plan: Weakness and syncope and bradycardia. This has resolved. This had been a vaga l reaction. She has ruled out for CA. She is mildly anemic. Echocardiogram is pending. I will tyler ck her records in my office to see what medication she takes. We will see what the echocardiogram sh ows. I think she needs to have an event monitor as an outpatient. Her other problems including hype rtension, mitral valve prolapse, CAD status post stent are stable at this point. We will continue to follow her. TOMÁS/MILY Voice ID: [id number] Report ID: [id number]
== END 2020-05-17 15:19 | disposition home health service (06) ==
LOC: ER 18:46 → ERHOLD 22:09 → 2ND 23:15
PROVIDERS: ADMIT Hospitalist; ATTEND Hospitalist
DX: R55 Syncope and collapse (principal); I48.20 Chronic atrial fibrillation, unspecified; I10 Essential (primary) hypertension; I25.10 Atherosclerotic heart disease of native coronary artery without angina pectoris; I34.1 Nonrheumatic mitral (valve) prolapse; Z20.828 Contact with and (suspected) exposure to other viral communicable diseases; Z95.5 Presence of coronary angioplasty implant and graft; S22.42XA Multiple fractures of ribs, left side, initial encounter for closed fracture; R00.1 Bradycardia, unspecified; R53.1 Weakness; R42 Dizziness and giddiness; D50.9 Iron deficiency anemia, unspecified; Z86.73 Personal history of transient ischemic attack (TIA), and cerebral infarction without residual deficits; W19.XXXA Unspecified fall, initial encounter; M81.0 Age-related osteoporosis without current pathological fracture; I25.2 Old myocardial infarction; E78.5 Hyperlipidemia, unspecified; M19.90 Unspecified osteoarthritis, unspecified site; Z87.891 Personal history of nicotine dependence
CPT/HCPCS: 93005; 85025 ×2; 80048 ×2; 36415; 83735 ×2; 85610; 80061; 82565; 80076; 84443; 84484 ×3; 84439; 83880; 70450; 72125; 71260; 74177; 71045; 93880; 70553; 70544; 70549; 97116; 97161; 97530; 94010; 96374; 99285; U0002; Q9967; A9577; J1650; J3010; J7030 ×2; G0378 ×2

== ENCOUNTER 2021-09-07 12:51 | Emergency (ER) | payer OTHER ==
--- OUTSIDE RECORDS SUMMARY | 2021-09-07 12:57 | XMS REPORT | Continuity of Care Document ---
:1945 Author Organization [facility] t Address [address] [place] [address] Care Team Providers Name Role Phone ROSEANN GUPTA Primary Care Physician Unavailable Indira Gupta Attending Clinician Unavailable Cherrie Attending Clinician Unavailable Nic HERNANDEZ Attending Clinician Unavailable GARIBAY Attending Clinician Unavailable Singer SAAVEDRA Attending Clinician Oli Attending Clinician Unavailable VO Attending Clinician Unavailable CEFERINO FLYNN Attending Clinician Unavailable RENU TELLEZ Attending Clinician Unavailable JOZEF SEO Attending Clinician Unavailable Roseann Gupta Admitting Clinician Unavailable Nic HERNANDEZ Admitting Clinician Unavailable Admitting Clinician Unavailable Cherrie Admitting Clinician Unavailable FERNANDO Admitting Clinician Unavailable CEFERINO FLYNN Admitting Clinician Unavailable RENU TELLEZ Admitting Clinician Unavailable JOZEF SEO Admitting Clinician Unavailable Payers Payer Name Policy Type Policy Number Effective Date Expiration Date S ralph PATEL MEDICARE OUT [id number] 2019 OF NETWORK 00:00:00 Problems Condition Condition Condition Status Onset Resolution Last Treating Co mments Source Name Details Category Date Date Treatment Clinician Date No known No known Disease Unive rs active active ity of problems problems [facility] Allergies, Adverse Reactions, Alerts Allergy Allergy Status Severity Reaction(s) Onset Inactive Treating Comm ents Source Name Type Date Date Clinician PROMETHA DRUG Active Hallucinates Un taylor ZINE INGREDI - ity of 00:00: [place] 00 [facility] Morphine Propensi Active Hallucinatio Univers ty to ns -19 ity of adverse 00:00: [place] reaction 00 Medical s [facility] Prometha Propensi Active Hallucinatio 0 Univers zine ty to ns -19 ity of adverse 00:00: [place] reaction 00 [facility] MORPHINE DRUG Active Hallucinates Un taylor INGREDI - ity of 00:00: [place] 00 [facility] BETA DA Active MO "MAKES MY HCA BLOCKERS REYNAUDS 1-11 Clear SYNDROME 00:00: [place] REAL BAD." 00 [facility] morphine DA Active SV HALLUCINATIO 0 HC A NS 1-11 Clear 00:00: [place] 00 [facility] prometha DA Active SV HALLUCINATIO 0 HC A zine NS 1-11 Clear 00:00: [place] 00 [facility] NO KNOWN Drug Active Univers ALLERGIE Class ity of S [facility] MORPHINE Adverse Active Info Not [facility] t Reaction Available [facility] ent Clinics Phenerga Adverse Active Info Not [facility] t n Reaction Available [facility] ent Clinics MORPHINE Allergy Active [facility] PROMETHA Allergy Active [facility] PENICILL Allergy Active [facility] PROMETHA Allergy Active [facility] Social History Social Habit Start Date Stop Date Quantity Comments Source Exposure to Not sure [facility] SARS-CoV-2 (event) [facility] Sex Assigned At [birth year] [facility] 00:00:00 00:00:00 Medical [facility] Smoking Status Start Date Stop Date Source Unknown if ever smoked [facility] Medications Ordered Filled Start Stop Current Ordering Indication Dosage Frequency Signature Comments Components Source Medication Medication Date Date Medication? Clinician (SIG) Name Name potassium 2021- No 10meq 10 mEq, IV Univers chloride in 08-21 Piggyback, i ty of water 10 23:00: 22:58 ONCE, 1 [place] mEq/100 mL 00 :00 dose, On Medic al RTU 10 mEq [facility] 08/21/21 at 1700, Administer over 60 Minutes, 100 mL magnesium 2021- No [id number] 2g 2 g, IV Univers sulfate in 08-21 Piggyback, it y of water 2 22:45: 21:58 ONCE, 1 [place] gram/50 mL 00 :00 dose, On Medic al (4 %) [facility] Branch infusion 2 08/21/21 at g 1645, Routine KCL 2021- No [id number] 40meq 40 mEq, Uni vers (KLOR-CON 08-21 Oral, ity of M20) tablet 22:30: 21:35 [place] 1 [place]Eq 00 :00 dose, On Medical [facility] 08/21/21 at 1630, FELA acetaminoph 2021- No 1000mg 1,000 mg, Univers en 08-21 Oral, ity of (TYLENOL) 22:28: 22:35 ONCE, 1 [place] tablet 00 :00 dose, On Medical 1,000 mg [facility] 08/21/21 at 1630, FELA potassium 2021- No 10meq 10 mEq, IV Univers chloride in 08-21 Piggyback, i ty of water 10 22:00: 23:59 Q1H, 2 [place] mEq/100 mL 00 :00 doses, Medical RTU 10 mEq First dose [facility] on Thu08/21/21 at 1600, Last dose on Thu08/21/21 at 1700, Administer over 60 Minutes, 100 mL No known No Univers medications 08-21 ity of 14:14: [address] Flonase Flonase Yes Na Gupta 2 spray in [facility] St 8-26 each [facility] Cetirizine Cetirizine Yes Na Gupta [address] HCl HCl 03-28 [facility] Bactrim DS Bactrim DS 2019- 2019- No Na Gupta [address] 03-28 [facility] - 00:[facility]: 00:00 [facility] 00 [facility] Folic Acid Folic Acid Yes Na Gupta not [facility] defined [facility] Nitroglycer Nitroglycer Yes Na Gupta not [facility] in in defined [facility] Eliquis Eliquis Yes Na Gupta not [facility] defined [facility]ics Lasix Lasix Yes Na Gupta [address] [facility] Tramadol Tramadol Yes Na Gupta [address] HCl HCl as needed [facility] Lipitor Lipitor Yes Na Gupta [address] [facility] Atorvastati Atorvastati Yes Na Gupta not [facility] n Calcium n Calcium defined [facility] Immunizations Ordered Filled Immunization Date Status Comments Clayton negro Immunization Name Name FluAD FluAD 2018-06-[address] [facility] [facility] 00:[facility]00 [facility] Vital Signs Vital Name Observation Time Observation Value Comments Source Systolic blood 2021-08-21 23:30:00 108 [facility] Diastolic blood 2021-08-21 23:30:00 55 mm[facility]Hg[facility] rate 2021-08-21 23:30:00 64 /min [facility] Respiratory rate 2021-08-21 23:30:00 18 /min [facility] Oxygen saturation in 2021-08-21 23:30:00 99 /min [facility] Arterial blood by [facility] Pulse oximetry Branch Body temperature 2021-08-21 20:15:00 37.11 Loly [facility] Body weight 2021-08-21 20:15:00 67.132 kg [facility] Procedures Procedure Date / Time Performed Performing Clinician Clayton GARDUNO-19 (ID NOW 2021-08-21 21:39:00 Garibay, [facility] RAPID TESTING) [facility] LACTIC ACID WHOLE 2021-08-21 20:42:00 [facility] BLOOD Medical Branch MAGNESIUM 2021-08-21 20:41:00 [facility] TROPONIN I 2021-08-21 20:41:00 [facility] COMP. METABOLIC PANEL 2021-08-21 20:41:00 [facility] ([address]641[facility] CBC WITH DIFF 2021-08-21 20:41:00 [facility] N-TERMINAL PRO-BNP 2021-08-21 20:41:00 [facility] X[facility] CHEST 1 VW 2021-08-21 20:25:03 [facility] 21P52HT 2021-08-14 00:00:00 RASSA [facility] Encounters Start End Encounter Admission Attending Care Care Encounter Source Date/Time Date/Time Type Type Clinicians Facility Department ID 2021-09-05 Outpatient Gupta, Na STLMLC STLMLC [id number] 09:39[facility]01 [facility] 2021-08-28 Outpatient Gupta, Na STLMLC STLMLC [id number] 14:13:55 [id number] [facility] 2021-08-28 Outpatient Gupta, Na STLMLC STLMLC [id number] 14:12:37 [id number] [facility] 2021-08-28 Outpatient Gupta, Na STLMLC STLMLC [id number] 14:02:04 [id number] [facility] 2021-08-28 Outpatient Gupta, Na STLMLC STLMLC [id number] 11:54:57 [id number] [facility] 2021-08-28 Outpatient Gupta, Na STLMLC STLMLC [id number] 11:02:26 [id number] [facility] 2021-08-13 Inpatient LRARY JoelCL [facility] [id number] [facility] 11:30:00 Lucio [facility] 2021-09-05 2021-09-05 ambulatory STLMLC STLMLC [id number] [facility] 2021-09-04 2021-09-04 ambulatory STLMLC STLMLC [id number] [facility] 2021-08-30 2021-08-30 ambulatory STLMLC STLMLC [id number] [facility] 2021-08-30 2021-08-30 ambulatory STLMLC STLMLC [id number] [facility] 2021-08-21 2021-08-23 Inpatient U [facility] [address] [place] [address] 20:57:00 17:30:00 MIREYA 2021-08-21 2021-08-22 Emergency X [facility] ERT [id number] Univers 14:12:00 06:52:00 EDU mendoza [facility] 2021-08-21 2021-08-22 Emergency [facility] [id number] Univers 14:12:00 06:52:00 Edu YIP [id number] i [facility] [id number] [facility] [id number] [address] 2021-08-20 2021-08-20 ambulatory STLMLC STLMLC [id number] [facility] 2021-08-20 2021-08-20 ambulatory STLMLC STLMLC [id number] [facility] 2021-08-14 2021-08-16 Inpatient NORMAN Brown [facility] [id number] [facility] 10:13:00 20:16:00 Garo [facility] 2021-08-14 2021-08-14 Inpatient ZENAIDA Baird, [facility] TELE [id number] [facility] 10:13:00 10:13:00 Garo 99 [facility] 2021-06-25 2021-06-25 ambulatory STLMLC STLMLC [id number] [facility] 2021-06-18 2021-06-18 ambulatory STLMLC STLC [id number] [facility] 2021-06-14 2021-06-14 ambulatory STLMLC STLMLC [id number] [facility] 2021-06-14 2021-06-14 ambulatory STLMLC STLC [id number] [facility] 2021-06-14 2021-06-14 ambulatory STLMLC STLC [id number] [facility] 2021-05-23 2021-05-23 Outpatient STLMLC STLC [id number] [facility] 2021-03-17 2021-03-25 Inpatient , LE [facility] [id number] [place] 00:00:00 00:00:[address] 2020-05-17 2020-05-17 Outpatient STLMLC STLC [id number] [facility] 2020-05-16 2020-05-16 Outpatient STLMLC STLMLC [id number] [facility] 2020-05-14 2020-05-14 Outpatient STLMLC STLMLC [id number] [facility] 2019-08-12 2019-08-12 [facility] [id number] 11:43:00 11:43:00 t [facility] ent [facility] 2019-03-28 2019-03-28 [facility] [id number] 15:20:00 15:20:00 t [facility] ent Clinics 2018-12-13 2018-12-13 [facility] [id number] 10:00:00 10:00:00 t [facility] ent Clinics 2018-06-22 2018-06-22 [facility] [id number] 14:15:00 14:15:00 t [facility] Results Test Description Test Time Test Comments Results Result Comments Source MAGNESIUM 2021-08-21 22:00:38 Test Item Value Reference Range Interpretation Comme nts MAGNESIUM (test code = 1241296117) 1.4 mg/dL 1.7-2.4 L Lab Interpretation (test code = 57164-6) [id number] 21:23:22 Test Item Value Reference Interpretation Comments Range TROPONIN I (test 0.046 ng/mL See_Comment H [Automated code = 5072494328) message] The system which generated this result transmitted reference range : <=0.034. The reference range was not used to interpret this result as normal/abnormal . SILVIA (test code = Reference (Normal) SILVIA) Range (defined by the 99th percentile reference limit): <= 0.034 ng/mL Note: Cardiac troponin begins to rise 3-4 hours after the onset of ischemia. Repeat in 4-6 hours if the sample was drawn within 3-4 hours of the onset of the symptom and found normal. Diagnosis of myocardial injury is made with acute changes in cTn concentrations with at least one serial sample above the 99th percentile upper reference limit (URL), taken together with the patient's clinical presentation. Biotin has been reported to cause a negative bias, interpret results relative to patient's use of biotin. Lab Interpretation Abnormal (test code = 48730-3) [facility] [id number] 21:20:04 Test Item Value Reference Range Interpretation Comments NT-proBNP (test code 2500 pg/mL See_Comment H [Autom ated = 0162528870) message] The system which generated this result transmitted reference range : <=125. The reference range was not used to interpret this result as normal/abnormal . SILVIA (test code = SILVIA) Biotin has been reported to cause a negative bias, interpret results relative to patient's use of biotin. Lab Interpretation Abnormal (test code = 39290-9) [facility]OL[facility] PANEL ([id number])2021-08-21 21:14:35 Test Item Value Reference Range Interpretation Comments NA (test code = 131 mmol/L 135-145 L 0921215692) K (test code = 2.4 mmol/L 3.5-5.0 LL 6316706371) CL (test code = 88 mmol/L 98-108 L 1435195260) CO2 TOTAL (test code = 35 mmol/L 23-31 H 9963039050) AGAP (test code = 2-16 8318239802) BUN (test code = 19 mg/dL 7-23 8374360804) GLUCOSE (test code = 114 mg/dL 70-110 H 0579054405) CREATININE (test code = 1.25 mg/dL 0.50-1.04 H 3526041045) TOTAL BILI (test code = 0.8 mg/dL 0.1-1.2 0266325874) CALCIUM (test code = 9.2 mg/dL 8.6-10.6 7142939688) T PROTEIN (test code = 6.7 g/dL 6.3-8.2 9555540706) ALBUMIN (test code = 3.7 g/dL 3.5-5.0 9940481345) ALK PHOS (test code = 116 U/L 34-122 6861130077) ALTv (test code = 22 U/L 5-35 1742-6) AST(SGOT) (test code = 42 U/L 13-40 H 7143647732) eGFR (test code = mL/min/1.73m2 7192665622) SILVIA (test code = SILVIA) Association of Glomerular Filtration Rate (GFR) and Staging of Kidney Disease* + --+ --+ ------+| GFR (mL/min/1.73 m2) ?| With Kidney Damage ?| ?Without Kidney Damage+ --------+ --------+ +| ?>90 ?| ?Stage one ?| ? Normal ?+ ---+ ---+ -------+| ?60-89 ?| ?Stage two ?| ? Decreased GFR ? + --+ --+ ------+| ?30-59 ?| ?Stage three ?| ? Stage three ? + --+ --+ ------+| ?15-29 ?| ?Stage four ? | ? Stage four ?+ ---+ ---+ -------+| ?<15 (or dialysis) ? ?| ?Stage five ? | ? Stage five ?+ ---+ ---+ -------+ *Each stage assumes the associated GFR level has been in effect for at least three months. ?Stages 1 to 5, with or without kidney disease, indicate chronic kidney disease. Notes: Determination of stages one and two (with eGFR >59mL/min/1.73 m2) requires estimation of kidney damage for at least three months as defined by structural or functional abnormalities of the kidney, manifested by either:Pathological abnormalities or Markers of kidney damage (including abnormalities in the composition of the blood or urine or abnormalities in imaging tests). Lab Interpretation Abnormal (test code = 55418-5) [facility] WITH [id number] 20:54:19 Test Item Value Reference Range Interpretation Comments WBC (test code = See_Comment [Automated 8779-2) message] The sy stem which generated this result transmitted reference range : 4.30 - 11.10 10*3/?L. The reference range was not used to interpret this result as normal/abnormal . RBC (test code = See_Comment L [Automated 739-8) message] The sy stem which generated this result transmitted reference range : 3.93 - 5.25 10*6/?L. The reference range was not used to interpret this result as normal/abnormal . HGB (test code = 8.5 g/dL 11.6-15.0 L 718-7) HCT (test code = 28.2 % 35.7-45.2 L 4544-3) MCV (test code = 85.7 fL 80.6-95.5 787-2) MCH (test code = 25.8 pg 25.9-32.8 L 785-6) MCHC (test code = 30.1 g/dL 31.6-35.1 L 786-4) RDW-SD (test code = 55.7 fL 39.0-49.9 H 00329-9) RDW-CV (test code = 17.9 % 12.0-15.5 H 788-0) PLT (test code = See_Comment [Automated 777-3) message] The sy stem which generated this result transmitted reference range : 166 - 358 10*3/ ?L. The reference r bre was not used to interpret this result as normal/abnormal . MPV (test code = 12.6 fL 9.5-12.9 28968-2) NRBC/100 WBC (test See_Comment [Automat ed code = 9337768496) message] The system which generated this result transmitted reference range : 0.0 - 10.0 /100 WBCs. The refer ence range was not u sed to interpret th is result as normal/abnormal . NRBC x10^3 (test code <0.01 See_Comment [Auto mated = 1595369350) message] The s ystem which generated this result transmitted reference range : 10*3/?L. The reference range was not used to interpret this result as normal/abnormal . GRAN MAT (NEUT) % 76.8 % (test code = 770-8) IMM GRAN % (test code 0.90 % = 8256063896) LYMPH % (test code = 12.6 % 736-9) MONO % (test code = 8.3 % 5905-5) EOS % (test code = 0.9 % 713-8) BASO % (test code = 0.5 % 706-2) GRAN MAT x10^3(ANC) 6.58 10*3/uL 1.88-7.09 (test code = 5889450059) IMM GRAN x10^3 (test 0.08 10*3/uL 0.00-0.06 H code = 7158406280) LYMPH x10^3 (test code 1.08 10*3/uL 1.32-3.29 L = 731-0) MONO x10^3 (test code 0.71 10*3/uL 0.33-0.92 = 742-7) EOS x10^3 (test code = 0.08 10*3/uL 0.03-0.39 711-2) BASO x10^3 (test code 0.04 10*3/uL 0.01-0.07 = 704-7) Lab Interpretation Abnormal (test code = 81100-3) [facility] Whole [id number] 20:49:35 Test Item Value Reference Range Interpretation Comments LACTIC ACID (test code = 1.35 mmol/L 0.50-2.20 5931092854) Lab Interpretation (test code = Normal 29212-2) [facility] X[facility] CHEST 1 [id number] 00:00:00 [facility] [place] : 1945 Sex: F FAX: Ben Munroe MD [phone] [place]: St: ADM FAX: Clarissa Ortega [phone] FAX: Lucio Poe MD [phone] FAX: Kasey Mccormack DO [phone] Name: TC ODEN [facility] : 1945 Age/S: 75/F [address] [place] [address] Blvd Unit #: [id number] Loc: G.9[address] [place] [address] Phys: Clarissa Ortega RAFFY Acct: [id number] Dis Date: Status: ADM IN PHONE #: [phone] Exam Date: 08/15/2021 1500 FAX #: [phone] Reason:hypoxia EXAMS: CPT CODE: [id number] XR CHEST 1 V 31976 PROCEDURE INFORMATION: Exam: XR Chest Exam date and time: 08/15/2021 2:15 PM Age: 75 years old Clinical indication: Other: Hypoxia TECHNIQUE: Imaging protocol: XR ofthe chest. Views: 1 view. COMPARISON: CR XR CHEST 1V 08/14/2021 12:13 PM FINDINGS: Tubes, catheters and devices: Faintly opaque EKG leads overlie the chest. Lungs: There are increased interstitial opacities bilateral lungs, linear and reticular. Faint nodular component may reflect early airspace disease. There is no consolidation. Pleural spaces: No pneumothorax or gross pleural effusion. Heart/Mediastinum: Mild prominence of the cardiac silhouette likely magnified by projection without interval change. Calcified plaque thoracic aorta. Calcification of the mitral annulus. Atrial appendage occlusion device faintly visible by this modality. The pulmonary vasculature is indistinct. Bones/joints: Left humeral prosthesis. IMPRESSION: Bilateral interstitial and possible early airspace disease. Edema, cardiogenic versus noncardiogenic, pneumonia and noninfectious etiologies in the differential. at 1533 Reported and signed by: Israel Persaud M.D. CC: Ben Munroe MD; Clarissa Ortega; Lucio Grier MD; Kasey Gupta DO Technologist: RT Mamadou(Beverly) Trnjyoti Date/Time/By: 08/15/2021 (1533) : By: aKlia Orig Print D/T: S: 08/15/2021 (3204) PAGE 1 Signed ReportBASIC METABOLIC [id number] 19:25:00 Test Item Value Reference Range Interpretation Comments SODIUM (test code = NA) 140 mEq/L 134-147 N POTASSIUM (test code = 3.6 mEq/L 3.4-5.0 N K) CHLORIDE (test code = 109 mEq/L 100-108 H CL) CARBON DIOXIDE (test 25 mEq/l 21-33 N code = CO2) ANION GAP (test code = 10 0-20 N GAP) GLUCOSE (test code = 138 mg/dL 70-110 H GLU) BLOOD UREA NITROGEN 12 mg/dL 7-18 N (test code = BUN) GLOMERULAR FILTRATION 61.2 70-80 L Units of measure = RATE (test code = GFR) ml/mi n/1.73 m2 CREATININE (test code = 0.9 mg/dL 0.6-1.3 N CREAT) CALCIUM (test code = 9.2 mg/dL 8.0-10.5 N CA) [id number] 19:25:00 Test Item Value Reference Range Interpretation Comments MAGNESIUM (test code = MAG) 1.63 mg/dL 1.80-2.40 L B-TYPE NATRIURETIC [id number] 19:21:00 Test Item Value Reference Range Interpretation Comments B-TYPE NATRIURETIC PEPTIDE (test 490.0 PG/ML 0-100 H code = BNP) [id number] 08:53:00 Test Item Value Reference Range Interpretation Comments ACT-ISTAT (test code 243 SEC 74-137 H Perform ed by certified = ACTI) 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 : 1945 Sex: F FAX: Ben Munroe MD [phone] [place]: St: ADM FAX: Sadia Poe MD [phone] FAX: Joseph GuptaKasey Whitfield DO [phone] FAX: Tony Mascorro [phone] Name: TC ODEN [facility] : 1945 Age/S: 75/F [address] [place] [address] Unit #: [id number] Loc: G.[facility] [place] [address] Phys: Tony Mascorro MANAGER REQUIREMENTS Acct: [id number] Dis Date: Status: ADM IN PHONE #: [phone] Exam Date: 08/14/2021 0748 FAX #: [phone] Reason:WATCHMAN EXAMS: CPT CODE: [id number] XR CHEST 1 V 10955 PROCEDURE INFORMATION: Exam: XR Chest Exam date and time: 08/14/2021 12:13 PM Age: 75years old Clinical indication: Condition or disease; Other: Watchman TECHNIQUE:Imaging protocol: XR of the chest. Views: 1 view. COMPARISON: DX XR CHEST 2 V 08/13/2021 1:31 PM FINDINGS: Lungs: Linear shadowing is seen in the right lung base with the ground- glass shadowing in the medial right lung base and in the periphery and couldrepresent pneumonitis. Slight increased pulmonary vascular congestion is noted with redistribution to the upper lobes representing mild congestive failure new from previous. Pleural spaces: Persistent blunting is demonstrated of the left costophrenic angle representing small left pleural effusion. Heart/Mediastinum: The patient is significantly rotated to the left precluding accurate assessment of the cardiac silhouette size and hilar shadows. Bones/joints: Unremarkable. IMPRESSION: Slight increased pulmonary vascular congestion is noted with redistribution to the upper lobes representing mild congestive failure new from previous. at 1408 Reported and signed by: Henry Torres M.D. CC: Ben Munroe MD; Lucio Grier MD; Kasey Gupta DO; Tony Mascorro Technologist: RT Raymond(R) Trnscrd Date/Time/By: 08/14/2021 (1408) : By: [email or web address] Orig Print D/T: S: 08/15/2021 (0734) PAGE 1 Signed ReportCOVID 19 Asymptomatic IH [id number] 14:58:00 Test Item Value Reference Range Interpretation Comments COVID 19 Asymptomatic Negative Negative A nega tive result is IH AG (test code = presumpti ve and should COVNONPUIAG) be confirmedwit h an FDA authorized mole cular assay, if neces tong forpatient rosa maria gement.A positive result does not rule out co-inf ections withother patho gens.This test detects moira th viable (live) and non-viable,SARS -CoV, and SARS-CoV-2. Sola t performance dep ends on theamount of vi zoraida (antigen) in th e sample.This sola t has not been FDA cleare d or approved; the t est hasbeen authori zed by FDA under an Em ergency Use Authorizati on(EUA) for use by labo ratories certified under the CLIA thatmeet the requirements to perform moderate, high or waivedcomplexit y tests. BASIC METABOLIC [id number] 13:47:00 Test Item Value Reference Range Interpretation Comments SODIUM (test code = NA) 140 mEq/L 134-147 N POTASSIUM (test code = 3.0 mEq/L 3.4-5.0 L K) CHLORIDE (test code = 105 mEq/L 100-108 N CL) CARBON DIOXIDE (test 30 mEq/l 21-33 N code = CO2) ANION GAP (test code = 9 0-20 N GAP) GLUCOSE (test code = 111 mg/dL 70-110 H GLU) BLOOD UREA NITROGEN 10 mg/dL 7-18 N (test code = BUN) GLOMERULAR FILTRATION 61.2 70-80 L Units of measure = RATE (test code = GFR) ml/mi n/1.73 m2 CREATININE (test code = 0.9 mg/dL 0.6-1.3 N CREAT) CALCIUM (test code = 9.9 mg/dL 8.0-10.5 N CA) [id number] 13:47:00 Test Item Value Reference Range Interpretation Comments PREALBUMIN (test code = PREALB) 12.4 mg/dL 16.0-40.0 L PROTHROMBIN [id number] 13:35:00 Test Item Value Reference Range Interpretation Comments PROTHROMBIN TIME 12.6 SECONDS 9.3-12.9 N PATIENT (test code = PTP) INTERNATIONAL NORMAL 1.1 0.8-1.2 N TARGET RATIO (test code = INR BY IN DICATION INR) Indication INR1. Prophyl axis of venous thrombos is 2.0 - 3. 0 (orthopedic palak frederic), Prophylaxis of venous thrombos is (other than hig h-risk surgery), Mariel tment of Deep Vein Thrombosis/Pulm onary Embolism, Preve ntion of systemic emb olism - Tissue heart va lves, Acute Myocardia l Infarction (to prevent systemic embo lism), Valvular heart disease, Atri al Fibrillation, Bileaflet mecha nical valve in aortic position.2. Mec hanical prosthetic valv es (high risk), 2.5 - 3.5 Presence of Lupus Anticoagu lant or Antiphospholi pid Antibodies, Pre vention of systemic e mbolism - Acute Myocard ial Infarction (t o prevent recurre nt infarct). CBC W/AUTO [id number] 13:26:00 Test Item Value Reference Range Interpretation Comments WHITE BLOOD CELL (test code = 5.1 x10 3/uL 4.5-11.0 N WBC) RED BLOOD CELL (test code = 3.13 x10 6/uL 3.54-5.02 L RBC) HEMOGLOBIN (test code = HGB) 8.2 g/dL 11.0-15.0 L HEMATOCRIT (test code = HCT) 28.3 % 33.0-45.0 L MEAN CELL VOLUME (test code = 90.4 fL 81.0-99.0 N MCV) MEAN CELL HGB (test code = MCH) 26.2 pg 27.0-33.0 L MEAN CELL HGB CONCETRATION 29.0 g/dL 33.0-37.0 L (test code = MCHC) RED CELL DISTRIBUTION WIDTH CV 17.7 % 11.5-14.5 H (test code = RDW) PLATELET COUNT (test code = 217 x10 3/uL 150-400 N PLT) NEUTROPHIL % (test code = NT%) 71.1 % 56.0-77.0 N LYMPHOCYTE % (test code = LY%) 18.4 % 14.0-32.0 N NEUTROPHIL # (test code = NT#) 3.60 x10 3/uL 2.0-7.6 N LYMPHOCYTE # (test code = LY#) 0.93 x10 3/uL 1.0-3.8 L MANUAL DIFF REQUIRED (test code NO = MDIFF) RED CELL DISTRIBUTION WIDTH SD 57.7 fL 37.0-54.0 H (test code = RDW-SD) MEAN PLATELET VOLUME (test code 12.9 fL 7.0-9.0 H = MPV) IMMATURE GRANULOCYTE % (test 0.6 % 0.0-2.0 N code = IG%) MONOCYTE % (test code = MO%) 8.1 % 4.8-9.0 N EOSINOPHIL % (test code = EO%) 1.0 % 0.3-3.7 N BASOPHIL % (test code = BA%) 0.8 % 0.0-2.0 N NUCLEATED RBC % (test code = 0.0 % 0-0 N NRBC%) IMMATURE GRANULOCYTE # (test 0.03 x10 3/uL 0.00-0.03 N code = IG#) MONOCYTE # (test code = MO#) 0.41 x10 3/uL 0.1-0.8 N EOSINOPHIL # (test code = EO#) 0.05 x10 3/uL 0.0-0.2 N BASOPHIL # (test code = BA#) 0.04 x10 3/uL 0.0-0.2 N NUCLEATED RBC # (test code = 0.00 x10 3/uL 0.0-0.1 N NRBC#) - XR CHEST 2 [id number] 00:00:00 [facility] LINDA ROWLEYName: TC ODEN : 1945 Sex: F FAX: Ben Munroe MD [phone] [place]: St: PRE FAX: Sadia Poe MD [phone] FAX: Kasey Mccormack DO [phone] Name: TC ODNE [facility] [place] : 1945 Age/S: 75/F [address] [place] [address] Unit #: [id number] Loc: [place] [address] Phys: Lucio Grier MD Acct: [id number] Dis Date: Status: PRE [facility] PHONE #: [phone] Exam Date: 08/13/2021 1359 FAX #: [phone] Reason: PREOP EXAMS: CPT CODE: [id number] XR CHEST 2 V 54266 PROCEDURE INFORMATION: Exam: XR Chest Exam date and time: 08/13/2021 1:31 PM Age: 75 years old Clinical indication: Pre-operative exam; Respiratory screening exam; Additional info: Preop TECHNIQUE: Imaging protocol: XR of the chest. Views: 2 views. PA and Lateral COMPARISON: No relevant prior studies available. FINDINGS: Lungs: Slightly increased parenchymal markings are seen, likely chronic in nature. Pleural spaces: Minimal left layering pleural effusion or scarring is seen. Heart/Mediastinum: Heart is borderline in size. Vasculature:There is atherosclerotic calcification of the aorta. Bones/joints: Left shoulder hardware is partially seen. IMPRESSION: 1. Minimal left layering pleural effusion or scarring is seen. 2. Slightly increased parenchymal markings are seen, likely chronic in nature. at 1403 Reported and signed by: Rich Modi D.O. CC: Ben Munroe MD; Lucio Grier MD; Kasey Gupta DO Technologist: RT Wilfred(R) Trnscrd Date/Time/By: 08/13/2021 (6840) : By: [email or web address] Orig Print D/T: S: 08/13/2021 (3110) PAGE 1 Signed ReportTISSUE EXAM 2018-11-02 17:45:00Surgical Pathology Report Case: [id number] Authorizing Provider: Rick Flynn, Collected: 10/27/2018 0955 OrderingLocation: [facility] Received: 10/27/2018 1010 PERIOPERATIVE SERVICES Pathologist: Gilbert Anderson MD Specimen: Plaque, LEFT CAROTID PLAQUE ARTERY, LEFT CAROTID, ENDARTERECTOMY:CALCIFIC ATHEROSCLEROTIC PLAQUE Signing Pathologist Direct Phone Line: [phone]; [phone] carotid stenosisLeft carotid plaqueThe specimen is received in a formalin-filled container and labeled with the patient's information and labeled "left carotid plaque" and consists of a calcified tubular shaped segment of tissue measuring 1.5 cm in length x 0.6 cm in diameter. Fringe Maker sections are submittedA1 for decal. CG/pl PerformedCBC W/PLT COUNT & AUTO [id number] 06:55:00 Test Item Value Reference Range Interpretation [...] 0-1 PERCENT (BEAKER) (test code = 2801) [id number] 06:04:00 Test Item Value Reference Range Interpretation Comments MAGNESIUM (BEAKER) (test code = 1.9 mg/dL 1.6-2.6 627) BASIC METABOLIC [id number] 06:04:00 Test Item Value Reference Range Interpretation [...] APPLICABLE FOR DIALYSIS PATIEN TS. HEMOGLOBIN AND [id number] 14:48:00 Test Item Value Reference Range Interpretation Comments HEMOGLOBIN (BEAKER) (test code = 7.4 GM/DL 11.2-15.7 L 410) HEMATOCRIT (BEAKER) (test code = 25.9 % 34.1-44.9 L 411) BASIC METABOLIC [id number] 08:59:00 Test Item Value Reference Range Interpretation [...] APPLICABLE FOR DIALYSIS PATIEN TS. HEMOGLOBIN AND [id number] 08:43:00 Test Item Value Reference Range Interpretation Comments HEMOGLOBIN (BEAKER) (test code = 7.7 GM/DL 11.2-15.7 L 410) HEMATOCRIT (BEAKER) (test code = 26.7 % 34.1-44.9 L 411) HEMOGLOBIN AND [id number] 02:15:00 Test Item Value Reference Range Interpretation Comments HEMOGLOBIN (BEAKER) (test code = 6.2 GM/DL 11.2-15.7 L 410) HEMATOCRIT (BEAKER) (test code = 22.2 % 34.1-44.9 L 411) [id number] 01:43:00 Test Item Value Reference Range Interpretation Comments MAGNESIUM (BEAKER) (test code = 1.6 mg/dL 1.6-2.6 627) BASIC METABOLIC [id number] 01:43:00 Test Item Value Reference Range Interpretation [...] (test code = 413) PLATELET AGGREGATION: FUNCTION [id number] 19:33:00 Test Item Value Reference Range Interpretation Comments WEAK ADP 98 % 60-91 H RESULT(BEAKER) (test code = 2135) PLATELET FUNCTION 60-100% indicates SCREEN INTERP (BEAKER) normal platelet (test code = 2173) function FNOW-KRXZXFEHXTH-5000 Ema Londono MD (BEAKER) (test code = (electronic signature) 1502) PLATELET COUNT AGG 171 K/CU MM 150-450 (BEAKER) (test code = 2656) Platelet Function Screen results may be falsely low with platelet counts<100,000/cu mm.for patients on clopidogrel in past two weeksfor patients on clopidogrel in past two weeksfor patients on clopidogrel in past two weeksHGB/HCT (H&H) - STAT [id number] 11:58:00 Test Item Value Reference Range Interpretation Comments HEMOGLOBIN (BEAKER) (test code = 7.6 g/dL 12.0-15.0 L 410) HEMATOCRIT (BEAKER) (test code = 22.0 % 36.0-45.0 L 411) GLUCOSE-STAT [id number] 11:57:00 Test Item Value Reference Range Interpretation Comments GLUCOSE RANDOM (BEAKER) (test code = 96 mg/dL 70-110 652) POTASSIUM-STAT [id number] 11:57:00 Test Item Value Reference Range Interpretation Comments POTASSIUM (BEAKER) (test code = 3.8 meq/L 3.6-5.5 379) POTASSIUM-STAT [id number] 09:09:00 Test Item Value Reference Range Interpretation Comments POTASSIUM (BEAKER) (test code = 3.6 meq/L 3.6-5.5 379) BLOOD GAS, [id number] 09:09:00 Test Item Value Reference Range Interpretation [...] (test code = 1819) 100.0 % GLUCOSE-STAT [id number] 09:09:00 Test Item Value Reference Range Interpretation Comments GLUCOSE RANDOM (BEAKER) (test code 112 mg/dL 70-110 H = 652) HGB/HCT (H&H) - STAT [id number] 09:09:00 Test Item Value Reference Range Interpretation Comments HEMOGLOBIN (BEAKER) (test code = 7.5 g/dL 12.0-15.0 L 410) HEMATOCRIT (BEAKER) (test code = 22.0 % 36.0-45.0 L 411) CALCIUM, [id number] 09:09:00 Test Item Value Reference Range Interpretation Comments CALCIUM IONIZED (BEAKER) (test 1.04 mmol/L 1.12-1.27 L code = 698) PH, BLOOD (BEAKER) (test code = 7.30 1810) SODIUM NA-STAT [id number] 09:08:00 Test Item Value Reference Range Interpretation Comments SODIUM (BEAKER) (test code = 381) 138 meq/L 135-148 POCT-GLUCOSE [id number] 06:33:00 Test Item Value Reference Range Interpretation Comments POC-GLUCOSE METER 110 mg/dL 70-[address] [facility] 6720 (BEAKER) (test code = [place] 1538) [address] RAD, CHEST, 2 [id number] 13:20:00Reason for exam:->pre op screenFINAL REPORT Chest [...] compression deformities in thoracic spine. Signed: Bk aMurice Verified Date/Time: 10/26/2018 13:20:52 Reading Location: [address] Consult Reading Room LIPID [id number] 12:51:00 Test Item Value Reference Range Interpretation [...] 130-159 High 160-189 Very High >=190BASIC METABOLIC [id number] 12:51:00 Test Item Value Reference Range Interpretation [...] PATIEN TS. CBC W/PLT COUNT & AUTO [id number] 12:47:00 Test Item Value Reference Range Interpretation [...] PERCENT (BEAKER) (test code = 2801) PROTHROMBIN [id number] 12:45:00 Test Item Value Reference Range Interpretation Comments PROTIME (BEAKER) (test code = 13.1 seconds 11.7-14.7 759) INR (BEAKER) (test code = 370) 1.0 <=5.9 RECOMMENDED COUMADIN/WARFARIN INR THERAPY RANGESSTANDARD DOSE: 2.0 - 3.0 Includes: PROPHYLAXIS forvenous thrombosis, systemic embolization; TREATMENT for venous thrombosis and/or pulmonary embolus.HIGH RISK: Target INR is 2.5-3.5 for patients with mechanical heart valves.[id number] 07:41:00 Test Item Value Reference Range Interpretation Comments MAGNESIUM (BEAKER) (test code = 1.9 mg/dL 1.6-2.6 627) BASIC METABOLIC [id number] 07:41:00 Test Item Value Reference Range Interpretation [...] PATIEN TS. CBC W/PLT COUNT & AUTO [id number] 07:12:00 Test Item Value Reference Range Interpretation [...] 0-1 PERCENT (BEAKER) (test code = 2801) [id number] 07:19:00 Test Item Value Reference Range Interpretation [...] % 20-55 L (test code = 2590) [id number] 06:41:00 Test Item Value Reference Range Interpretation Comments MAGNESIUM (BEAKER) (test code = 1.9 mg/dL 1.6-2.6 627) BASIC METABOLIC [id number] 06:41:00 Test Item Value Reference Range Interpretation [...] PATIEN TS. CBC W/PLT COUNT & AUTO [id number] 06:20:00 Test Item Value Reference Range Interpretation [...] 0-1 PERCENT (BEAKER) (test code = 2801) [id number] 06:02:00 Test Item Value Reference Range Interpretation Comments MAGNESIUM (BEAKER) (test code = 1.8 mg/dL 1.6-2.6 627) BASIC METABOLIC [id number] 06:02:00 Test Item Value Reference Range Interpretation [...] PATIEN TS. CBC W/PLT COUNT & AUTO [id number] 05:35:00 Test Item Value Reference Range Interpretation [...] code = 2801) MR, SPINE, LUMBAR, WITHOUT [id number] 14:56:00FINAL REPORT MRI of the lumbar spine [...] Calle MDReport Verified Date/Time: 02/10/2018 14:56:55Reading Location: [address] Consult Reading Room MR, SPINE, THORACIC, WITHOUT [id number] 14:43:00FINAL REPORT MRI of the thoracic spine [...] Calleeport Verified Date/Time: 02/10/2018 14:43:52 Reading Location: [address] Consult Reading Room [id number] 04:38:00 Test Item Value Reference Range Interpretation Comments MAGNESIUM (BEAKER) (test code = 2.1 mg/dL 1.6-2.6 627) BASIC METABOLIC [id number] 04:38:00 Test Item Value Reference Range Interpretation [...] PATIEN TS. CBC W/PLT COUNT & AUTO [id number] 04:21:00 Test Item Value Reference Range Interpretation [...] code = 2801) URINALYSIS W/ REFLEX URINE [id number] 12:55:00 Test Item Value Reference Range Interpretation [...] /LPF 514) SOURCE(BEAKER) (test code = 2795) [id number] 05:52:00 Test Item Value Reference Range Interpretation Comments MAGNESIUM (BEAKER) (test code = 2.1 mg/dL 1.6-2.6 627) BASIC METABOLIC [id number] 05:52:00 Test Item Value Reference Range Interpretation [...] PATIEN TS. CBC W/PLT COUNT & AUTO [id number] 05:33:00 Test Item Value Reference Range Interpretation [...] (test code = 2801) VITAMIN B12 AND [id number] 06:37:00 Test Item Value Reference Range Interpretation Comments VITAMIN B12 (BEAKER) (test code = 460 pg/mL 213-816 774) FOLATE (BEAKER) (test code = 362) 4.2 ng/mL >=7.0 L TSH/FREE T4 IF [id number] 06:22:00 Test Item Value Reference Range Interpretation Comments THYROID STIMULATING HORMONE 1.37 uIU/mL 0.35-4.94 (BEAKER) (test code = 772) [id number] 06:16:00 Test Item Value Reference Range Interpretation Comments PHOSPHORUS (BEAKER) (test code = 3.7 mg/dL 2.3-4.7 604) [id number] 06:16:00 Test Item Value Reference Range Interpretation Comments MAGNESIUM (BEAKER) (test code = 1.9 mg/dL 1.6-2.6 627) BASIC METABOLIC [id number] 06:16:00 Test Item Value Reference Range Interpretation [...] NOT APPLICABLE FOR DIALYSIS PATIEN TS. LIPID [id number] 06:16:00 Test Item Value Reference Range Interpretation [...] Borderline 130-159 High 160-189 Very High >=190C-REACTIVE [id number] 06:16:00 Test Item Value Reference Range Interpretation Comments C-REACTIVE PROTEIN (BEAKER) (test 7.42 mg/dL 0.00-0.50 H code = 676) CBC W/PLT COUNT & AUTO [id number] 05:44:00 Test Item Value Reference Range Interpretation [...] (BEAKER) (test code = 2801) URINALYSIS W/ [id number] 20:50:00 Test Item Value Reference Range Interpretation [...] 514) SOURCE(BEAKER) (test code = Urine, Voided 1869) MR, BRAIN, WITHOUT [id number] 19:27:00Reason for exam:->Ischemic Stroke EvaluationFINAL REPORT Exam: [...] No acute intracranial hemorrhage or mass effect. Xdor-of-ejropfup white matter microvascular ischemic changes.Prior microhemorrhage in the right frontal lobe. Findings discussed with Dr Helm at 7:25 PM on 02/07/2018. Signed: Shane Rodriguez Verified Date/Time: 02/07/2018 19:27:07 Reading Location: [address] Transitional Reading Room MR, MRA, BRAIN, WITHOUT [id number] 19:25:00Reason for exam:->Ischemic Stroke EvaluationFINAL REPORT MRA head and neck without contrast. CLINICAL HISTORY: Stroke. Ischemic stroke evaluation.. COMPARISON: None. TECHNIQUE: Two- and three-dimensional evxh-ev-qpzjtm MRA images of the intra- and extracranial [...] Shane Rodriguez Verified Date/Time:02/07/2018 19:25:57 Reading Location: [address] Transitional Reading Room MR, MRA, NECK, WITHOUT IV [id number] 19:25:00Reason for exam:->Ischemic Stroke EvaluationFINAL REPORT MRA head and neck without contrast. CLINICAL HISTORY: Stroke. Ischemic stroke evaluation.. COMPARISON: None. TECHNIQUE: Two- and three-dimensional ysps-uv-nvkurm MRA images of the intra- and extracranial [...] Rodriguez Verified Date/Time:02/07/2018 19:25:57 Reading Location: [address] Reading Room HEMOGLOBIN [id number] 12:15:00 Test Item Value Reference Range Interpretation Comments HEMOGLOBIN A1C (BEAKER) (test code = 6.0 % 4.3-6.1 368) TSH/FREE T4 IF [id number] 12:13:00 Test Item Value Reference Range Interpretation Comments THYROID STIMULATING HORMONE 1.43 uIU/mL 0.35-4.94 (BEAKER) (test code = 772) LIPID [id number] 08:53:00 Test Item Value Reference Range Interpretation [...] 130-159 High 160-189 Very High >=190BASIC METABOLIC [id number] 08:53:00 Test Item Value Reference Range Interpretation [...] PATIEN TS. CBC W/PLT COUNT & AUTO [id number] 08:43:00 Test Item Value Reference Range Interpretation [...] PERCENT (BEAKER) (test code = 2801) TISSUE [id number] 14:20:00Surgical Pathology Report Case: [id number] Authorizing Provider: Max Seo MD Collected: 10/21/2017 0837 Ordering Location: [facility] Received: 10/21/2017 0931 PERIOPERATIVE SERVICES Pathologist: Gilbert Anderson MD Specimen: Carotid, Right, RIGHT CAROTID PLAQUE ARTERY, RIGHT CAROTID, ENDARTERECTOMY:CALCIFIC ATHEROSCLEROTIC PLAQUE Signing Pathologist Direct Phone Line: [phone] signed by Gilbert Anderson MD on 10/29/2017 at 2:20 [id number]; [id number] stenosisRight carotid plaqueIn saline labeled "carotid, right", description "right carotid plaque" is a 3.5 cm in length x 0.9 cm in diameter michel-white to yellow-ang cylindrical previously incised portion of fibrous tissue. Sectioning reveals focal calcification. Fringe Maker sections are submitted in cassette A1 for decalcification. DB/[id number] 05:30:00 Test Item Value Reference Range Interpretation Comments MAGNESIUM (BEAKER) (test code = 1.7 mg/dL 1.6-2.6 627) [facility]Call [facility] with resultsBASIC METABOLIC [id number] 05:30:00 Test Item Value Reference Range Interpretation [...] [facility] with resultsCBC W/PLT COUNT & AUTO [id number] 04:49:00 Test Item Value Reference Range Interpretation [...] (BEAKER) (test code = 2801) BASIC METABOLIC [id number] 05:38:00 Test Item Value Reference Range Interpretation [...] PATIEN TS. CBC W/PLT COUNT & AUTO [id number] 05:13:00 Test Item Value Reference Range Interpretation [...] PERCENT (BEAKER) (test code = 2801) GLUCOSE-STAT [id number] 09:53:00 Test Item Value Reference Range Interpretation Comments GLUCOSE RANDOM (BEAKER) (test code 105 mg/dL 70-110 = 652) HGB/HCT (H&H) - STAT [id number] 09:53:00 Test Item Value Reference Range Interpretation Comments HEMOGLOBIN (BEAKER) (test code = 11.2 g/dL 12.0-15.0 L 410) HEMATOCRIT (BEAKER) (test code = 33.0 % 36.0-45.0 L 411) BASIC METABOLIC [id number] 07:45:00 Test Item Value Reference Range Interpretation [...] PATIEN TS. RAD, CHEST, 1 VIEW, NON [id number] 07:29:00Reason for exam:- >baselineReason for exam:->pre opShould [...] changes in the left humerus. Signed: Jesse Crawley Verified Date/Time: 10/21/2017 07:29:40 Reading Location: [facility] Radiology Reading Room HROMBIN [id number] 07:23:00 Test Item Value Reference Range Interpretation [...] % 0-1 PERCENT (BEAKER) (test code = 1461)
[2021-09-07 14:30] LABS: Absolute Lymphocytes (CBC) 1.3 K/uL (0.7-4.9); Hematocrit 26.7 % (36.0-45.0); Lymphocytes % 25.2 % (15.3-44.8); MPV 9.3 fL (7.6-11.3); RBC Red Blood Cell Count 3.23 M/uL (3.86-4.86)
[2021-09-07 14:34] LABS: Protime INR 1.05
[2021-09-07 14:39] LABS: Potassium 3.2 mmol/L (3.5-5.1)
--- NOTE | 2021-09-07 15:26 | RAD REPORT ---
EXAM DESCRIPTION: CT - Head Brain Wo Cont - 09/07/2021 3:10 pm CLINICAL HISTORY: Dizziness COMPARISON: 2019 TECHNIQUE: Computed axial tomography of the head was obtained. IV contrast was not requested. All CT scans are performed using dose optimization technique as appropriate and may include automated exposure control or mA/KV adjustment according to patient size. FINDINGS: An intracranial bleed is not seen . The ventricles are normal in caliber. No extra-axial fluid collection is noted. Mioderate low-density areas within periventricular, deep and subcortical white matter likely represen t ischemic changes secondary to small vessel disease. Small old lacunar infarctions bilaterally. Fluid within the sinuses/ mastoids is not seen. IMPRESSION: No acute intracranial abnormality is seen. If patient's symptoms persist MRI of the bra in would be recommended.
[2021-09-07 17:15] LABS: Urine Blood Negative (Negative); Urine Glucose Negative (Negative); Urine Protein Negative (Negative); Urine Specific Gravity 1.025 (1.005-1.030)
[2021-09-07] MEDS ORDERED: NA CHLORIDE 0.9% 250 ML ONE (17:17)
[2021-09-07 17:31] LABS: Platelet Estimate ADEQ; White Blood Cell Scan OK (OK)
[2021-09-07 17:32] LABS: Anisocytosis 1+; Blood Morphology Comment NOTED (NOT SEEN); Poikilocytosis 1+
[2021-09-07 17:33] LABS: Ovalocytes 1+
--- NOTE | 2021-09-07 17:46 | EDPHYS ---
Physician Documentation [facility] Name: Jenniffer Harden Age: 75 yrs Sex: Female : 1945 Arrival Date: 09/07/2021 Time: 12:52 Bed 14 Private MD: Kasey Pinto ED Physician Balta Olivarez HPI: 09/07 15:20 This 75 yrs old Female presents to ER via Wheelchair with complaints of Dizziness, rn lightheaded. 15:20 The patient presents with generalized weakness, lightheadedness. Onset: The rn symptoms/episode began/occurred 2 week(s) ago. Context: occurred at home, occurred while the patient was at rest. Modifying factors: The symptoms are alleviated by nothing, the symptoms are aggravated by standing up, changing position. Associated signs and symptoms: Pertinent negatives: abdominal pain, chest pain, focal weakness, headache, syncope, tingling, vomiting. Severity of symptoms: At their worst the symptoms were mild in the emergency department the symptoms are unchanged. The patient has experienced similar episodes in the past. The patient has been recently seen by a physician:. Patient reports dizziness and feeling lightheaded for the last few weeks. Had a watchman procedure 4 weeks ago, has been slowly tapering her amiodarone, taken off of the Eliquis, and started on gabapentin recently.. Historical: - Allergies: 13:09 Morphine; jh5 13:09 PENICILLINS; jh5 13:09 Phenergan; jh5 - PMHx: 13:09 Arthritis; Atrial Fib; Hypertension; mitral valve prolapse; Osteoporosis; Myocardial jh5 infarction; 13:10 COPD; 5 - Immunization history:: Adult Immunizations up to date. - Social history:: Smoking status: Patient denies any tobacco usage or history of. - Family history:: not pertinent. - Hospitalizations: : No recent hospitalization is reported. ROS: 15:20 Constitutional: Negative for fever, chills, and weight loss, Eyes: Negative for injury, rn pain, redness, and discharge, Neck: Negative for injury, pain, and swelling, Cardiovascular: Negative for chest pain, palpitations, and edema, Respiratory: Negative for shortness of breath, cough, wheezing, and pleuritic chest pain, Abdomen/GI: Negative for abdominal pain, nausea, vomiting, diarrhea, and constipation, Back: Negative for injury and pain, : Negative for injury, bleeding, discharge, and swelling, MS/Extremity: Negative for injury and deformity, Skin: Negative for injury, rash, and discoloration, Neuro: Negative for headache, numbness, tingling, and seizure. Exam: 15:20 Constitutional: This is a well developed, well nourished patient who is awake, alert, rn and in no acute distress. Head/Face: Normocephalic, atraumatic. Eyes: Periorbital areas with no swelling, redness, or edema. ENT: MMM Cardiovascular: Regular rate and rhythm. No pulse deficits. Respiratory: No increased work of breathing, no retractions or nasal flaring. Abdomen/GI: Soft, non-tender Skin: Warm, dry MS/ Extremity: Pulses equal, no cyanosis. Neuro: Awake and alert, GCS 15 Vital Signs: 13:06 BP 143 / 70; Pulse 66; Resp 18; Temp 98.0; Pulse Ox 100% ; Weight 69.85 kg; Height 5 5 ft. 2 in. (157.48 cm); 14:45 BP 139 / 67; Pulse 62; Resp 16; Pulse Ox 100% on R/A; ic1 17:20 BP 138 / 77 Sitting; Pulse 72; ic1 17:20 BP 119 / 72 Standing; Pulse 72; ic1 17:58 BP 159 / 97; Pulse 69; Resp 16; Pulse Ox 95% on 3 lpm NC; ic1 13:06 Body Mass Index 28.17 (69.85 kg, 157.48 cm) 5 MDM: 13:48 Patient medically screened. rn 17:43 Differential diagnosis: cardiac arrhythmia, CVA, generalized weakness, hypovolemia, rn idiopathic dizziness, near-syncope, vertigo, anemia. Data reviewed: vital signs, nurses notes, lab test result(s), EKG, radiologic studies, CT scan, and as a result, I will discharge patient. Counseling: I had a detailed discussion with the patient and/or guardian regarding: the historical points, exam findings, and any diagnostic results supporting the discharge/admit diagnosis, lab results, radiology results, the need for outpatient follow up, to return to the emergency department if symptoms worsen or persist or if there are any questions or concerns that arise at home. Response to treatment: the patient's symptoms have mildly improved after treatment, and as a result, I will discharge patient. Special discussion: I discussed with the patient/guardian in detail that at this point there is no indication for admission to the hospital. It is understood, however, that if the symptoms persist or worsen the patient needs to return immediately for re-evaluation. ED course: No acute findings in blood or ct head. vitals stable. Reports hemoglobin last week was 7.5, today 8.1. Hemoccult negative. Urine neg. COVID neg. Will dc home with pcp f/u as needed. . 09/07 14:01 Order name: CBC with Diff rn 09/07 14:01 Order name: Basic Metabolic Panel; Complete Time: 14:48 rn 09/07 14:01 Order name: Protime (+inr); Complete Time: 14:48 rn 09/07 14:01 Order name: Ptt, Activated rn 09/07 14:01 Order name: SARS-COV-2 RT PCR (Document "Date of Onset" if Symptomatic); Complete Time: rn 15:20 09/07 14:01 Order name: CBC with Automated Diff; Complete Time: 17:39 EDMS 09/07 14:01 Order name: IV Start; Complete Time: 14:19 rn 09/07 14:01 Order name: EKG; Complete Time: 14:02 rn 09/07 14:01 Order name: EKG - Nurse/Tech; Complete Time: 14:45 rn 09/07 14:02 Order name: CT Head Brain wo Cont; Complete Time: 15:28 rn 09/07 14:02 Order name: Orthostatic Blood Pressure; Complete Time: 17:12 rn 09/07 17:15 Order name: Urine Dipstick-Ancillary; Complete Time: 17:39 EDMS 09/07 17:32 Order name: CBC Smear Scan; Complete Time: 17:39 EDMS Administered Medications: 17:19 Drug: NS 0.9% 250 ml Route: IV; Rate: bolus; Site: left antecubital; ic1 Point of Care Testing: Guaiac: 15:40 Stool Guaiac: Negative; Stool Hemoccult Control: Pass; rn Disposition Summary: 09/07/21 17:46 Discharge Ordered Location: Home rn Problem: an ongoing problem rn Symptoms: have improved rn Condition: Stable rn Diagnosis - Dizziness and giddiness rn Followup: rn - With: Private Physician - When: As needed - Reason: Recheck today's complaints, Re-evaluation by your physician Discharge Instructions: - Discharge Summary Sheet rn - Anemia rn - Dizziness rn Forms: - Medication Reconciliation Form rn - Thank You Letter rn - Antibiotic learning developer - Prescription Opioid Use rn Signatures: Dispatcher [employer] EDBalta Black MD MD rn Rees, Jessica RN RN jh5 Gisselle Conde RN RN ic1 Corrections: (The following items were deleted from the chart) 15:40 15:20 Constitutional: This is a well developed, well nourished patient who is awake, rn alert, and in no acute distress. Head/Face: Normocephalic, atraumatic. Eyes: Periorbital areas with no swelling, redness, or edema. ENT: MMM Cardiovascular: Regular rate and rhythm. No pulse deficits. Respiratory: No increased work of breathing, no retractions or nasal flaring. Abdomen/GI: Soft, non-tender Skin: Warm, dry MS/ Extremity: Pulses equal, no cyanosis. Neuro: Awake and alert, GCS 15 rn
--- NOTE | 2021-09-07 17:46 | ER ---
Nurse's Notes [facility] Name: Jenniffer Harden Age: 75 yrs Sex: Female : 1945 Arrival Date: 09/07/2021 Time: 12:52 Bed 14 Private MD: Kasey Pinto Diagnosis: Dizziness and giddiness Presentation: 09/07 13:06 Chief complaint: Patient states: dizzy, lightheaded, feeling weak x2 weeks; [facility] is adjusting her meds and she thinks that is it. Coronavirus screen: Vaccine status: Patient reports receiving the 2nd dose of the covid vaccine. Client denies travel out of the [place] in the last 14 days. Ebola Screen: Patient negative for fever greater than or equal to 101.5 degrees Fahrenheit, and additional compatible Ebola Virus Disease symptoms Patient denies exposure to infectious person. Patient denies travel to an Ebola-affected area in the 21 days before illness onset. Initial Sepsis Screen: Does the patient meet any 2 criteria? No. Patient's initial sepsis screen is negative. Does the patient have a suspected source of infection? No. Patient's initial sepsis screen is negative. Risk Assessment: Do you want to hurt yourself or someone else? Patient reports no desire to harm self or others. Onset of symptoms was August 2021. 13:06 Method Of Arrival: Wheelchair [facility] 13:06 Acuity: RUTHIE 3 5 Triage Assessment: 13:09 General: Appears in no apparent distress. slender, well groomed, well developed, well jh5 nourished, Behavior is calm, cooperative, appropriate for age. Historical: - Allergies: 13:09 Morphine; 5 13:09 PENICILLINS; [facility] 13:09 Phenergan; jh5 - PMHx: 13:09 Arthritis; Atrial Fib; Hypertension; mitral valve prolapse; Osteoporosis; Myocardial [facility] infarction; 13:10 COPD; 5 - Immunization history:: Adult Immunizations up to date. - Social history:: Smoking status: Patient denies any tobacco usage or history of. - Family history:: not pertinent. - Hospitalizations: : No recent hospitalization is reported. Screenin:19 Abuse screen: Denies threats or abuse. Denies injuries from another. Nutritional ic1 screening: No deficits noted. Tuberculosis screening: No symptoms or risk factors identified. Fall Risk Total Hall Fall Scale indicates Low Risk Score (25-44 pts). Side Rails Up X 2 Placed close to Nursing Station Frequent Obs/Assesments occuring. Assessment: 14:19 Pain: Complains of pain in Pt c/o generalized pain and weakness. Neuro: Level of ic1 Consciousness is awake, alert, obeys commands, Oriented to person, place, time, situation. Cardiovascular: Rhythm is sinus rhythm. Respiratory: No deficits noted. GI: No deficits noted. : No deficits noted. EENT: No deficits noted. Derm: No deficits noted. Musculoskeletal: No deficits noted. Vital Signs: 13:06 BP 143 / 70; Pulse 66; Resp 18; Temp 98.0; Pulse Ox 100% ; Weight 69.85 kg; Height 5 [facility] ft. 2 in. (157.48 cm); 14:45 BP 139 / 67; Pulse 62; Resp 16; Pulse Ox 100% on R/A; ic1 17:20 BP 138 / 77 Sitting; Pulse 72; ic1 17:20 BP 119 / 72 Standing; Pulse 72; ic1 17:58 BP 159 / 97; Pulse 69; Resp 16; Pulse Ox 95% on 3 lpm NC; ic1 13:06 Body Mass Index 28.17 (69.85 kg, 157.48 cm) [facility] ED Course: 12:52 Patient arrived in ED. am2 12:53 Kasey Pinto MD is Private Physician. am2 13:09 Triage completed. [facility] 13:11 Arm band placed on right wrist. [facility] 13:48 Balta Olivarez MD is Attending Physician. rn 14:14 Gisselle Conde RN is Primary Nurse. ic1 14:19 Patient has correct armband on for positive identification. Placed in gown. Call light ic1 in reach. Side rails up X2. 14:19 CBC with Automated Diff Sent. ic1 14:19 Protime (+inr) Sent. ic1 14:19 Ptt, Activated Sent. ic1 14:19 Basic Metabolic Panel Sent. ic1 14:19 CBC with Diff Sent. ic1 14:19 Inserted saline lock: 20 gauge in left antecubital area, using aseptic technique. Blood ic1 collected. 15:10 CT Head Brain wo Cont In Process Unspecified. EDMS 18:09 No provider procedures requiring assistance completed. IV discontinued, intact, ic1 bleeding controlled, No redness/swelling at site. Pressure dressing applied. Administered Medications: 17:19 Drug: NS 0.9% 250 ml Route: IV; Rate: bolus; Site: left antecubital; ic1 Point of Care Testing: Guaiac: 15:40 Stool Guaiac: Negative; Stool Hemoccult Control: Pass; rn Outcome: 17:46 Discharge ordered by . rn 18:08 Discharged to home via wheelchair, with family. ic1 18:08 Condition: stable 18:08 Discharge instructions given to patient, Instructed on discharge instructions, follow up and referral plans. Demonstrated understanding of instructions, follow-up care. 18:09 Patient left the ED. ic1 Signatures: Dispatcher [employer] EDMS Balta Olivarez MD MD rn Moreno, Amanda am2 Rees, Jessica RN RN jh5 Gisselle Conde RN RN ic1
[2021-09-07 18:15] VITALS: TEMP 98
[2021-09-07 18:18] VITALS: BP 159/97; O2SAT 95
--- NOTE | 2021-09-09 11:34 | EKG ---
Test Date: 2021-09-07 Test Time: 14:34:38 Loan Servicing Representative: IC MEASUREMENT RESULTS: Intervals: Rate: 61 NC: 174 QRSD: 84 QT: 480 QTc: 483 [place]: P: 38 NC: 174 QRS: -40 T: 38 INTERPRETIVE STATEMENTS: Normal sinus rhythm Left axis deviation Cannot rule out Anterior infarct, age undetermined Abnormal ECG Compared to ECG 05/16/2020 20:57:38 Left-axis deviation now present Myocardial infarct finding now present Atrial premature complex(es) no longer present Fusion complex(es) no longer present Ventricular premature complex(es) no longer present Electronically Signed On 09-09-21 11:30:41 DAIRY MANAGER by Ben Munroe
== END 2021-09-07 18:09 | disposition home or self-care (01) ==
LOC: ER 12:51
DX: R42 Dizziness and giddiness (principal); I10 Essential (primary) hypertension; I48.91 Unspecified atrial fibrillation; Z20.822 Contact with and (suspected) exposure to COVID-19; Z88.0 Allergy status to penicillin; Z88.5 Allergy status to narcotic agent; Z88.8 Allergy status to other drugs, medicaments and biological substances
CPT/HCPCS: 93005; 85025; 80048; 36415; 85610; 85730; 81003; 70450; 99284; U0003; J7050

== ENCOUNTER 2022-04-20 12:22 | Inpatient (IN) | payer OTHER ==
--- OUTSIDE RECORDS SUMMARY | 2022-04-20 12:27 | XMS REPORT | Continuity of Care Document ---
:1945 Author Organization [facility] t Address [address] [place] [address] Dr. [address]. [address] [place] [address] Care Team Providers Name Role Phone KASEY GUPTA Primary Care Physician Unavailable Kasey Gupta Attending Clinician Unavailable MIREYA HERNANDEZ Attending Clinician Unavailable EDU GARIBAY Attending Clinician Unavailable Edu Garibay DO Attending Clinician Garo Baird Attending Clinician Unavailable AMBER ISRAEL Attending Clinician Unavailable RICK FLYNN Attending Clinician Unavailable MARISOL TELLEZ Attending Clinician Unavailable CARLOS SEO Attending Clinician Unavailable MIREYA HERNANDEZ Admitting Clinician Unavailable EDU GARIBAY Admitting Clinician Unavailable Lucio Grier Admitting Clinician Unavailable DELMER KING Admitting Clinician Unavailable RICK FLYNN Admitting Clinician Unavailable MARISOL TELLEZ Admitting Clinician Unavailable CARLOS SEO Admitting Clinician Unavailable Payers Payer Name Policy Type Policy Number Effective Date Expiration Date Sadia PATEL MEDICARE OUT [id number] 2019 OF NETWORK 00:00:00 Problems Condition Condition Condition Status Onset Resolution Last Treating Co mments Source Name Details Category Date Date Treatment Clinician Date Atrial Atrial Disease Active Methodi fibrillati fibrillati 8-15 st on with on with 00:00: Hospita rapid rapid 00 l ventricula ventricula r response r response NSTEMI NSTEMI Disease Active Overview: Method i (non-ST (non-ST 8-[address] elevated elevated 00:00: g of this Hos vinicius myocardial myocardial 00 note l infarction infarction might be ) ) different from the original. Added automatic ally from request for surgery [id number] Persistent Persistent Disease Active 2018-08 M ethodi atrial atrial 0-21 st fibrillati fibrillati 00:00: Ho spita on on 00 l Anemia Anemia Disease [facility] Carotid Carotid Disease Active [facility] stenosis, stenosis, 3-27 [facility] left left 00:00: Medical 00 Center Carotid Carotid Disease Active [facility] artery artery 3-27 [facility] stenosis stenosis 00:00: Medica l 00 Center Acute Acute Disease Active [facility] embolic embolic 7 [facility] stroke stroke 00:00: Medical 00 [place] Weakness Weakness Disease Active [facility] 00[facility] Center Carotid Carotid Disease Active [facility] stenosis stenosis 7-08 [facility] s/p s/p 00:00: Medical carotid carotid 00 Center endarterec endarterec mary mary Essential Essential Disease Active [facility] hypertensi hypertensi 3-22 [facility] on on 00:00: Medical Center 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 disease disease Medical Center TIA TIA Disease Active [facility] (transient (transient [facility]es ischemic ischemic Medica l attack) attack) Center Atrial Atrial Disease Active [facility] fibrillati fibrillati [facility] kes on on Medical Center Hyperlipid Hyperlipid Disease Active [facility] emia emia [facility] Hypertensi Hypertensi Disease Active [facility] on on [facility] CHF CHF Disease Active [facility] (congestiv (congestiv [facility] e heart e heart Medical failure) failure) Center Stroke Stroke Disease Active [facility] S/P S/P Disease Active Overview: [facility] carotid carotid Formattin [facility] endarterec endarterec g of this [facility] note Center might be different from the original. right Allergies, Adverse Reactions, Alerts Allergy Allergy Status Severity Reaction(s) Onset Inactive Treating Comm ents Source Name Type Date Date Clinician Morphine Propensi Active Hallucinatio Univers ty to ns 1-19 ity of adverse 00:00: [place] reaction 00 [facility] Prometha Propensi Active Hallucinatio Univers zine ty to ns 1-19 ity of adverse 00:00: [place] reaction 00 [facility] MORPHINE DRUG Active Hallucinates Un taylor INGREDI 1-19 ity of 00:00: [place] 00 [facility] PROMETHA DRUG Active Hallucinates Un taylor ZINE INGREDI -19 ity of 00:00: [place] 00 [facility] morphine DA Active SV HALLUCINATIO HC A NS 1-11 Clear 00:00: [place] 00 [facility] prometha DA Active SV HALLUCINATIO HC A zine NS 1-11 Clear 00:00: [place] 00 [facility] BETA DA Active MO "MAKES MY [facility] BLOCKERS REYNAUDS 1-11 Clear SYNDROME 00:00: [place] REAL BAD." 00 [facility] Adhesive Propensi Active Itching Metho di Tape-Fatemeh ty to 8-16 st icones adverse 00:00: Hospita reaction 00 l s to drug Morphine Propensi Active Hallucinatio 2018-08 Methodi ty to ns 0-17 st adverse 00:00: Hospita reaction 00 l s to drug Penicill Propensi Active Other (See 2018-08 Severe Me thodi ins ty to Comments) [address] adverse 00:00: rash as a Hospit a reaction 00 child l s to drug Prometha Propensi Active Hallucinatio 2018-08 Methodi zine ty to ns 0-17 st adverse 00:00: Hospita reaction 00 l s to drug Morphine Propensi Active Other (See Pt. [facility] ty to Comments) [facility] adverse 00:00: has Medical reaction 00 severe Center s hallucina tions when given medicatio n Penicill Propensi Active Hives Pt. [facility] ins ty to 02-07 [facility] adverse 00:00: breaks Medical reaction 00 out in Center s hives; cannot recall the severity since first reaction was during childhood Prometha Propensi Active Other (See Pt has [facility] zine-Phe ty to Comments) 02-07 hallucina Mallory kes nylephri adverse 00:00: tions Medical ne reaction 00 when Center s given medicatio ns Morphine Propensi Active [facility] ty to 3-20 [facility] adverse 00:00: Medical reaction 00 Center s Prometha Propensi Active [facility] zine-Dm ty to 3-20 [facility] adverse 00:00: Medical reaction 00 Center s MORPHINE Adverse Active Info Not Commo n Reaction Available [facility] Phenerga Adverse Active Info Not Commo n n Reaction Available [facility] MORPHINE Allergy Active [facility] PROMETHA Allergy Active [facility] St ZINE-PHE [facility] NYLEPHRI [facility] PENICILL Allergy Active [facility] PROMETHA Allergy Active [facility] St ZINE-DM [facility] NO KNOWN Drug Active Univers ALLERGIE Class ity of S [facility] Family History Family Member Diagnosis Comments Start Date Stop Date Source Natural father Cancer [facility] Natural mother Cancer [facility] Paternal grandmother Heart disease [facility] Social History Social Habit Start Date Stop Date Quantity Comments Source Exposure to Not sure University of SARS-CoV-2 (event) [facility] History SDOH Sikh Alcohol Std Drinks Hospit al History SDOH Sikh Alcohol Binge Hospital History of tobacco Current smoker [facility] use Hospital Alcohol intake 2021-05-29 2021-05-29 Lifetime Sikh 00:00:00 00:00:00 non-drinker Hospital (finding) History SDOH 2019-06-23 2019-06-23 1 Sikh Alcohol Frequency 00:00:00 00:00:00 Hospita l Tobacco Comment 2019-05-23 2019-05-23 Quit 10 years Method ist 00:00:00 00:00:00 ago Hospital Cigarettes smoked 2018-02-07 2018-02-[address] [facility] current (pack per 00:00:00 00:00:00 Medical Center day) - Reported Cigarette 2018-02-07 2018-02-[address] [facility] pack-years 00:00:00 00:00:00 [facility] Tobacco use and 2018-02-07 2018-02-[address] [facility]ory kes exposure 00:00:00 00:00:00 [facility] Sex Ass[birth year] At [birth year] Sikh 00:00:00 00:00:00 Hospital Smoking Status Start Date Stop Date Source Unknown if ever smoked Universit y of [facility] Ex-smoker 2019-06-23 00:00:00 2019-06-23 00:00:00 [facility] Medications Ordered Filled Start Stop Current Ordering Indication Dosage Frequency Signature Comments Components Source Medication Medication Date Date Medication? Clinician (SIG) Name Name potassium 2021- No 10meq 10 mEq, IV Univers chloride in 08-21 Piggyback, i ty of water 10 23:00: 22:58 ONCE, 1 [place] mEq/100 mL 00 :00 dose, On Medic al RTU 10 mEq Wed Branch 08/21/21 at 1700, Administer over 60 Minutes, 100 mL magnesium 2021- No [id number] 2g 2 g, IV Univers sulfate in 08-21 Piggyback, it y of water 2 22:45: 21:58 ONCE, 1 [place] gram/50 mL 00 :00 dose, On Medic al (4 %) Wed Branch infusion 2 08/21/21 at g 1645, Routine KCL 2021- No [id number] 40meq 40 mEq, Uni vers (KLOR-CON 08-21 Oral, ity of M20) tablet 22:30: 21:35 [place] 40 mEq 00 :00 dose, On Medical Wed Branch 08/21/21 at 1630, FELA acetaminoph No 1000mg 1,000 mg, Univers en 08-21 Oral, ity of (TYLENOL) 22:28: 22:35 ONCE, 1 [place] tablet 00 :00 dose, On Medical 1,000 mg Wed Branch 08/21/21 at 1630, FELA potassium No 10meq 10 mEq, IV Univers chloride in 08-21 Piggyback, i ty of water 10 22:00: 23:59 Q1H, 2 [place] mEq/100 mL 00 :00 doses, Medical RTU 10 mEq First dose [facility] on Thu08/21/21 at 1600, Last dose on Thu08/21/21 at 1700, Administer over 60 Minutes, 100 mL No known No Univers medications 08-21 ity of 14:14: [address] aspirin No 81mg QD Take 1 Methodi (ECOTRIN) 03-26 tablet (81 st 81 MG 00:00: 04:59 mg total) Hospit a enteric 00 :00 by mouth l coated daily for tablet 30 days. clopidogreL No 75mg QD Take 1 Met hodi (PLAVIX) 75 03-26 tablet (75 s t mg tablet 00:00: 04:59 mg total) Ho spita 00 :00 by mouth l daily for 30 days. atorvastati Yes 80mg QD Take 80 mg Methodi n (LIPITOR) 03-[address] 80 MG 17:49: daily. Hospita tablet 44 l furosemide Yes 20mg QD Take 20 mg M ethodi (LASIX) 20 03-[address] mg tablet 17:49: daily. Hospit a 44 l apixaban Yes 5mg Q.5D Take 1 Methodi (ELIQUIS) 5 - tablet (5 st mg tablet 00:00: mg total) Hos vinicius 00 by mouth 2 l (two) times a day. amIODarone 2020- No 200mg Q.[id number] Take 1 Methodi (PACERONE) 03-[id number] 200 MG 00:00: 04:59 3D (200 mg Hospita tablet 00 :00 total) by l mouth 3 (three) times a day for 30 days. lisinopriL 2020- No 2.5mg Q.5D Take 1 Met hodi (PRINIVIL) 03-[address] 2.5 mg 00:00: 04:59 (2.5 mg Hospita tablet 00 :00 total) by l mouth 2 (two) times a day for 30 days. ranolazine 2020- No 500mg Q.5D Take 1 Met hodi (RANEXA) 03-[address] 500 MG 12 00:00: 04:59 (500 mg Hosp ibrahima hr ER 00 :00 total) by l tablet mouth 2 (two) times a day for 30 days. Flonase Flonase Yes Na Gupta 2 spray in Common 03-28 each Spirit 00:00: nostril - CHI 00 [facility] Cetirizine Cetirizine Yes Na Gupta 1 tablet Common HCl HCl 03-28 Spirit 00:00: - CHI 00 [facility] Bactrim DS Bactrim DS 2018- No Na Gupta 1 tablet Common 03-28 Spirit 00:00: 00:00 - CHI 00 :00 [facility] atorvastati Yes 80mg QD Take [address] n (LIPITOR) 4-15 by mouth Luke s 40 MG 11:11: daily . Medical tablet 17 Center aspirin 81 2018- Yes 81mg QD Take [address] MG EC 4-15 by mouth [facility] tablet 11:11: daily. Medical 17 Center furosemide Yes 20mg Q.5D Take [address] (LASIX) 20 4-15 by mouth 2 Charbel es MG tablet 11:11: (two) Medical 17 times Center daily. potassium 2018- Yes 20meq QD Take [address] chloride 4-15 mEq by Lukes (KLOR-CON) 11:11: mouth Medica l 20 mEq 17 daily. Center packet irbesartan Yes 150mg QD Take [address] (AVAPRO) 4-15 mg by [facility]ukes 150 MG 11:11: mouth Medical tablet 17 nightly. Center nitroglycer Yes .4mg Place 0.[address] in 4-15 mg under Lukes (NITROSTAT) 11:11: the tongue Medical 0.4 MG SL 17 every 5 Center tablet (five) minutes as needed for Chest pain Put 1 pill under tongue every 5min as needed for chest pain.No more than 3 doses in 15min.Call 911 if pain is unrelieved 5min after 1st dose . traMADol 2018- Yes 50mg Take [address] (ULTRAM) 50 4-12 by mouth Luke s mg tablet 00:00: every 8 Medic al 00 (eight) Center hours as needed. famotidine Yes 20mg QD Take 1 CHI S t (PEPCID) 20 3-30 tablet (20 Mallory kes MG tablet 00:00: mg total) Med ical 00 by mouth Center daily. COMBIVENT Yes INL [address] RESPIMAT 3-08 PO 2 TO 3 Lukes 20-100 00:00: TIMES QD Medical mcg/actuati 00 PRN Center on Mist inhaler apixaban 2017-0 Yes 5mg Q.5D Take [address] (ELIQUIS) 5 7-14 tablet (5 Charbel es mg Tab 00:00: mg total) Medica l tablet 00 by mouth 2 Center (two) times daily. Folic Acid Folic Acid Yes Na Gupta not Common defined [facility] Nitroglycer Nitroglycer Yes Na Gupta not Common in in defined [facility] Eliquis Eliquis Yes Na Gupta not Common defined [facility] Lasix Lasix Yes Na Gupta 1 tablet Common [facility] Tramadol Tramadol Yes Na Gupta 1 tablet Common HCl HCl as needed [facility] Lipitor Lipitor Yes Na Gupta 1 tablet Co mmon [facility] Atorvastati Atorvastati Yes Na Gupta not Common n Calcium n Calcium defined Sp jannie [facility] Immunizations Ordered Immunization Filled Immunization Date Status Commen ts Source Name Name FluAD FluAD 2018-06-22 Completed Common [facility] 00:00:00 [facility] Vital Signs Vital Name Observation Time Observation Value Comments Source Systolic blood 2021-08-21 23:30:00 108 mm[Hg] Univer sity pressure [facility] Diastolic blood 2021-08-21 23:30:00 55 mm[Hg] [facility] Heart rate 2021-08-21 23:30:00 64 /min [facility] Respiratory rate 2021-08-21 23:30:00 18 /min [facility] Oxygen saturation in 2021-08-21 23:30:00 99 /min [facility] Arterial blood by [facility] Pulse oximetry [place] Body temperature 2021-08-21 20:15:00 37.11 Loly [facility] Body weight 2021-08-21 20:15:00 67.132 kg [facility] Procedures Procedure Date / Time Performed Performing Clinician Clayton GARDUNO-19 (ID NOW 2021-08-21 21:39:00 [facility] RAPID TESTING) [facility] LACTIC ACID WHOLE 2021-08-21 20:42:00 Singer [facility] Branch MAGNESIUM 2021-08-21 20:41:00 [facility] TROPONIN I 2021-08-21 20:41:00 [facility] COMP. METABOLIC PANEL 2021-08-21 20:41:00 Edu Garibay [facility] ([id number]) [facility] CBC WITH DIFF 2021-08-21 20:41:00 [facility] N-TERMINAL PRO-BNP 2021-08-21 20:41:00 Singer Edu [facility] XR CHEST 1 VW 2021-08-21 20:25:03 [facility] [id number] 2021-08-14 00:00:00 RASSA [facility] CATH ABORTED 2021-05-28 14:56:18 Hector Honeycutt spital PROCEDURE Plan of Care Planned Activity Planned Date Details Comments Source Future Scheduled 2022-04-01 HEPATITIS B VACCINES [facility] [place] [facility] Test 02:07:02 (1 of 3 - 3-dose series) [code = HEPATITIS B VACCINES (1 of 3 - 3-dose series)] Future Scheduled 2022-04-01 COVID-19 VACCINE (#1) [facility] Test 02:07:02 [code = COVID-19 VACCINE (#1)] Future Scheduled 2022-04-01 65+ [facility]OCOCCAL [facility] Test 02:07:02 VACCINE (1 - PCV) [code = 65+ PNEUMOCOCCAL VACCINE (1 - PCV)] Future Scheduled 2022-04-01 Hepatitis C screening [facility] Test 02:07:02 (procedure) [code = 986883543] Future Scheduled 2022-04-01 BREAST CANCER [facility] Test 02:07:02 SCREENING [code = BREAST CANCER SCREENING] Future Scheduled 2022-04-01 COLONOSCOPY SCREENING [facility] Test 02:07:02 [code = COLONOSCOPY SCREENING] Future Scheduled 2022-04-01 SHINGLES VACCINES (1 [facility] Test 02:07:02 of 2) [code = SHINGLES VACCINES (1 of 2)] Future Scheduled 2022-04-01 INFLUENZA VACCINE Method [facility] Test 02:07:02 [code = INFLUENZA VACCINE] Encounters Start End Encounter Admission Attending Care Care Encounter Source Date/Time Date/Time Type Type Clinicians Facility Department ID 2022-04-18 Outpatient Gupta, Na STLC STLC [id number] 2 Common 14:08:00 [facility] 2021-11-11 Outpatient Gupta, Na STLC STLC [id number] 2 Common 08:53:00 [facility] 2021-10-23 Outpatient Gupta, Na STLC STLC [id number] 2 Common 13:18:01 [facility] 2021-09-26 Outpatient Gupta, Na STLC STLC [id number] 2 Common 10:09:01 [facility] 2021-09-17 Outpatient Gupta, Na STLC STLC [id number] 2 Common 16:44:00 [facility] 2021-09-05 Outpatient Gupta, Na STLC STLC [id number] 2 Common 09:39:01 [facility] 2021-08-28 Outpatient Gupta, Na STLMLC STLMLC [id number] 2 Common 14:13:55 [facility] 2021-08-28 Outpatient Gupta, Na STLMLC STLMLC [id number] 2 Common 14:12:37 [id number] [facility] 2021-08-28 Outpatient Gupta, Na STLMLC STLMLC [id number] 2 Common 14:02:04 23534 [facility] 2021-08-28 Outpatient Gupta, Na STLMLC STLMLC [id number] 2 Common 11:54:57 [id number] [facility] 2021-08-28 Outpatient Gupta, Na STLMLC STLMLC [id number] 2 Common 11:02:26 [id number] [facility] 2022-03-31 2022-03-31 ambulatory STLMLC STLMLC [id number] Common 00:00:00 00:00:00 [facility] 2022-03-20 2022-03-20 Outpatient MHIE MHIE [id number] Memoria 10:30:00 10:30:00 04 alvaro [place] 2021-12-18 2021-12-18 Outpatient MHIE MHIE [id number] Memoria 16:15:00 16:15:00 03 alvaro NewellEladio 2021-12-06 2021-12-06 ambulatory STLMLC STLMLC [id number] Common 00:00:00 00:00:00 [facility] 2021-12-03 2021-12-03 ambulatory STLMLC STLMLC [id number] Common 00:00:00 00:00:00 [facility] 2021-11-27 2021-11-27 Outpatient MHIE MHIE [id number] Memoria 15:00:00 15:00:00 02 alvaro NewellEladio 2021-11-13 2021-11-13 ambulatory STLMLC STLMLC [id number] Common 00:00:00 00:00:00 [facility] 2021-10-25 2021-10-25 ambulatory STLMLC STLMLC [id number] Common 00:00:00 00:00:00 [facility] 2021-10-16 2021-10-16 ambulatory STLMLC STLMLC [id number] Common 00:00:00 00:00:00 [facility] 2021-10-16 2021-10-16 ambulatory STLMLC STLMLC [id number] Common 00:00:00 00:00:00 [facility] 2021-10-08 2021-10-08 ambulatory STLMLC STLMLC [id number] Common 00:00:00 00:00:00 [facility] 2021-10-02 2021-10-02 ambulatory STLMLC STLMLC [id number] Common 00:00:00 00:00:00 [facility] 2021-09-27 2021-09-27 ambulatory STLMLC STLMLC [id number] Common 00:00:00 00:00:00 [facility] 2021-09-13 2021-09-13 ambulatory STLMLC STLMLC [id number] Common 00:00:00 00:00:00 [facility] 2021-09-05 2021-09-05 ambulatory STLMLC STLMLC [id number] Common 00:00:00 00:00:00 [facility] 2021-09-04 2021-09-04 ambulatory STLMLC STLMLC [id number] Common 00:00:00 00:00:00 [facility] 2021-08-30 2021-08-30 ambulatory STLMLC STLMLC [id number] Common 00:00:00 00:00:00 [facility] 2021-08-30 2021-08-30 ambulatory STLMLC STLMLC [id number] Common 00:00:00 00:00:00 [facility] 2021-08-21 2021-08-23 Inpatient U MARY, [facility] CAR 2019 [facility] 20:57:00 17:30:00 MIREYA 2021-08-21 2021-08-22 Emergency X , HIMISAEL [facility] [id number] Univers 14:12:00 06:52:00 EDU ryneranjan [facility] 2021-08-21 2021-08-22 Emergency Garibay, [facility] [id number] Univers 14:12:00 06:52:00 Edu YIP [id number] pablo [facility]ia [facility] [id number] [facility] [id number] [facility] 084 Branch 2021-08-20 2021-08-20 ambulatory STLMLC STLMLC [id number] Common 00:00:00 00:00:00 [facility] 2021-08-20 2021-08-20 ambulatory STLMLC STLMLC [id number] Common 00:00:00 00:00:00 [facility] 2021-08-14 2021-08-16 Inpatient LARRY Brown TELE [id number] [facility] 10:13:00 20:16:[address] [place] [address] 2021-07-19 2021-07-19 Outpatient MHIE RONAIE [id number] Memoria 15:00:00 15:00:00 01 l [place] 2021-06-25 2021-06-25 ambulatory STLMLC STLMLC [id number] Common 00:00:00 00:00:00 [facility] 2021-06-18 2021-06-18 ambulatory STLMLC STLMLC [id number] Common 00:00:00 00:00:00 [facility] 2021-06-14 2021-06-14 ambulatory STLMLC STLMLC [id number] Common 00:00:00 00:00:00 [facility] 2021-06-14 2021-06-14 ambulatory STLMLC STLMLC [id number] Common 00:00:00 00:00:00 [facility] 2021-06-14 2021-06-14 ambulatory STLMLC STLMLC [id number] Common 00:00:00 00:00:00 [facility] 2021-05-23 2021-05-23 Outpatient STLMLC STLMLC [id number] Common 00:00:00 00:00:00 [facility] 2021-03-17 2021-03-25 Inpatient AMBER ISAREL [facility] [id number] [place] 00:00:00 00:00:[address] 2020-05-17 2020-05-17 Outpatient STLMLC STLMLC [id number] Common 00:00:00 00:00:00 [facility] 2020-05-16 2020-05-16 Outpatient STLMLC STLMLC [id number] Common 00:00:00 00:00:00 [facility] 2020-05-14 2020-05-14 Outpatient STLMLC STLMLC [id number] Common 00:00:00 00:00:00 [facility] 2019-08-12 2019-08-12 [facility] [id number] Common 11:43:00 11:43:[address] [facility] 2019-03-28 2019-03-28 Outpatient [facility] [id number] Common 15:20:00 15:20:[address] [facility] 2018-12-13 2018-12-13 Out[facility] [id number] Common 10:00:00 10:00:00 [facility] 2018-06-22 2018-06-22 Outpatient [facility] [id number] Common 14:15:00 14:15:[address] [facility] Results Test Description Test Time Test Comments Results Result Comments Source MAGNESIUM 2021-08-21 22:00:38 Test Item Value Reference Range Interpretation Comme nts MAGNESIUM (test code = 1913947960) 1.4 mg/dL 1.7-2.4 L Lab Interpretation (test code = 11579-9) [facility]normal [id number] 21:23:22 Test Item Value Reference Interpretation Comments Range TROPONIN I (test 0.046 ng/mL See_Comment H [Automated code = 9514671095) message] The system which generated this result [...] biotin. Lab Interpretation Abnormal (test code = 26227-4) [facility] [id number] 21:20:04 Test Item Value Reference Range Interpretation Comments NT-proBNP (test code 2500 pg/mL See_Comment H [Autom ated = [id number]) message] The system which generated this result transmitted reference range : <=125. The reference range was not used to interpret this result as normal/abnormal . SILVIA (test code = SILVIA) Biotin has been reported to cause a negative bias, interpret results relative to patient's use of biotin. Lab Interpretation Abnormal (test code = 82377-2) [facility]. METABOLIC PANEL ([id number])2021-08-21 21:14:35 Test Item Value Reference Range Interpretation Comments NA (test code = 131 mmol/L 135-145 L [id number]) K (test code = 2.4 mmol/L 3.5-5.0 LL 0805568297) CL (test code = 88 mmol/L 98-108 L 0415361699) CO2 TOTAL (test code = 35 mmol/L 23-31 H 5811873195) AGAP (test code = 2-16 8704684989) BUN (test code = 19 mg/dL 7-23 0231903804) GLUCOSE (test code = 114 mg/dL 70-110 H 8887268387) CREATININE (test code = 1.25 mg/dL 0.50-1.04 H 0327953426) TOTAL BILI (test code = 0.8 mg/dL 0.1-1.0 2943802729) CALCIUM (test code = 9.2 mg/dL 8.6-10.6 4556007168) T PROTEIN (test code = 6.7 g/dL 6.3-8.2 0038624094) ALBUMIN (test code = 3.7 g/dL 3.5-5.0 2493298020) ALK PHOS (test code = 116 U/L 34-122 3201845684) ALTv (test code = 22 U/L 5-35 1742-6) AST(SGOT) (test code = 42 U/L 13-40 H 4706414998) eGFR (test code = mL/min/1.73m2 9596964483) SILVIA (test code = SILVIA) Association of [...] tests). Lab Interpretation Abnormal (test code = 61629-3) [facility] WITH [id number] 20:54:19 Test Item Value Reference Range Interpretation Comments WBC (test code = See_Comment [Automated 6690-2) message] The sy stem which generated this result transmitted reference range : 4.30 - 11.10 10*3/?L. The reference range was not used to interpret this result as normal/abnormal . RBC (test code = See_Comment L [Automated 789-8) message] The sy stem which generated this [...] (test code = 55.7 fL 39.0-49.9 H 43896-8) RDW-CV (test code = 17.9 % 12.0-15.5 H 788-0) PLT (test code = See_Comment [Automated 777-3) message] The sy stem which generated this result transmitted reference range : 166 - 358 10*3/ ?L. The reference r bre was not used to interpret this result as normal/abnormal . MPV (test code = 12.6 fL 9.5-12.9 55608-8) NRBC/100 WBC (test See_Comment [Automat ed code = 0113779890) message] The system which generated this result transmitted reference range : 0.0 - 10.0 /100 WBCs. The refer ence range was not u sed to interpret th is result as normal/abnormal . NRBC x10^3 (test code <0.01 See_Comment [Auto mated = 4459071115) message] The s ystem which generated this result transmitted reference range : 10*3/?L. The reference range was not used to interpret this result as normal/abnormal . GRAN MAT (NEUT) % 76.8 % (test code = 770-8) IMM GRAN % (test code 0.90 % = 3477427052) LYMPH % (test code = 12.6 % 736-9) MONO % (test code = 8.3 % 5905-5) EOS % (test code = 0.9 % 713-8) BASO % (test code = 0.5 % 706-2) GRAN MAT x10^3(ANC) 6.58 10*3/uL 1.88-7.09 (test code = 0204503418) IMM GRAN x10^3 (test 0.08 10*3/uL 0.00-0.06 H code = 2118807351) LYMPH x10^3 (test code 1.08 10*3/uL 1.32-3.29 L = 731-0) MONO x10^3 (test code 0.71 10*3/uL 0.33-0.92 = 742-7) EOS x10^3 (test code = 0.08 10*3/uL 0.03-0.39 711-2) BASO x10^3 (test code 0.04 10*3/uL 0.01-0.07 = 704-7) Lab Interpretation Abnormal (test code = 44671-1) [facility] [id number] 20:49:35 Test Item Value Reference Range Interpretation Comments LACTIC ACID (test code = 1.35 mmol/L 0.50-2.20 [id number]) Lab Interpretation (test code = Normal 36708-3) [facility]- XR CHEST 1 [id number] 00:00:00 [facility] TC [facility]EN : 1945 Sex: F FAX:Ben Munroe MD [phone] [place]: St: ADM FAX: Clarissa Ortega [phone] FAX: Lucio oPe MD [phone] FAX: Kasey Mccormack DO [phone] Name: TC HARDEN [facility] : 1945 Age/S: 75/F [address] [place], [place] [address] Unit #: [id number] Loc: G.3357 [place] [address] Phys: Clarissa Ortega Acct: [id number] Dis Date: Status: ADM IN PHONE #: [phone] Exam Date: 08/15/2021 1500FAX #: [phone] Reason: hypoxia EXAMS: CPT CODE: [id number] XR CHEST 1 V 68310 PROCEDURE INFORMATION: Exam: XR Chest Exam date and time: 08/15/2021 2:15 PM Age: 75 years old Clinical indication: Other: Hypoxia TECHNIQUE: Imaging protocol: XR of the chest. Views: 1 view. COMPARISON: CR XR CHEST 1V 08/14/2021 12:13 PM FINDINGS: Tubes, catheters and devices: Faintly opaque EKG leads overlie the chest.Lungs: There are increased interstitial opacities bilateral lungs, linear and reticular. Faint nodular component may reflect early airspace disease. There is no consolidation. Pleural spaces: No pneumothorax or gross pleural effusion. Heart/Mediastinum: Mild prominence of the cardiac silhouette likelymagnified by projection without interval change. Calcified plaque thoracic aorta. Calcification of the mitral annulus. Atrial appendage occlusion device faintly visible by this modality. The pulmonary vasculature is indistinct. Bones/joints: Left humeral prosthesis. IMPRESSION: Bilateral interstitial and possible early airspace disease. Edema, cardiogenic versus noncardiogenic, pneumonia and noninfectious etiologies in the differential. Electronically Signed by Avery Persaud on 2021 at 1533 Reported and signed by: Israel Persaud M.D. CC: Ben Munroe MD; Clarissa Ortega; Lucio Grier MD; Kasey Gupta DO Technologist: Andria Mcgovern RT(R) Trnscrd Date/Time/By: 08/15/2021 (1533) : By: Kalia Orig Print D/T: S: 08/15/2021 (1534) PAGE 1 Signed ReportBASIC METABOLIC [id number] 19:25:00 Test Item Value Reference Range Interpretation [...] code = 9.2 mg/dL 8.0-10.5 N CA) [id number] 19:25:00 Test Item Value Reference Range Interpretation Comments MAGNESIUM (test code = MAG) 1.63 mg/dL 1.80-2.40 L B-TYPE NATRIURETIC [id number] 19:21:00 Test Item Value Reference Range Interpretation Comments B-TYPE NATRIURETIC PEPTIDE (test 490.0 PG/ML 0-100 H code = BNP) [id number] 08:53:00 Test Item Value Reference Range Interpretation Comments ACT-ISTAT (test code 243 SEC 74-137 H Perform ed by certified = ACTI) 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 [facility] [id number] 08:53:00 Test Item Value Reference Range Interpretation Comments ACT-ISTAT (test code 220 SEC 74-137 H Perform ed by certified = ACTI) 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 [facility] - XR CHEST 1 [id number] 00:00:00 [facility] : 1945 Sex: F FAX:Ben Munroe MD [phone] [place]: St: ADM FAX: Lucio Poe MD [phone] FAX: Kasey Mccormack DO [phone] FAX: Tony Mascorro [phone] Name: CECILLE,TC [facility] : 1945 Age/S: 75/F [address] [place] [address] Unit #: [id number] Loc: G.1747 [place] [address] Phys: Tony Mascorro [facility] Acct: [id number] Dis Date: Status: ADM IN PHONE #: [phone] Exam Date: 08/14/2021 0748 FAX #: [phone] Reason: WATCHMAN EXAMS: CPT CODE: [id number] XR CHEST 1 V 62529 PROCEDURE INFORMATION: Exam: XR Chest Exam date and time: 08/14/2021 12:13 PM Age: 75 years old Clinical indication: Condition or disease; Other: Watchman TECHNIQUE: Imaging protocol: XR of the chest. Views: 1 view. COMPARISON: DX XR CHEST 2 V 08/13/2021 1:31 PM FINDINGS: Lungs: Linear shadowing is seen in the right lung base with the ground-glass shadowing in the medial right lung base and in the periphery and could represent pneumonitis. Slight increased pulmonary vascular congestion is [...] redistribution to the upper lobes representing mild congestivefailure new from previous. [id number] Reported and signed by: Henry Torres M.D. CC: Ben Munroe MD; Lucio Grier MD; Ivan Gupta DO; Tony Mascorro Technologist: RT Raymond(Beverly) Trnjyoti Date/Time/By: 08/14/2021 (1408) : By: [email or web address] Orig Print D/T: S: 08/15/2021 (0775) PAGE 1 Signed ReportCOVID 19 Asymptomatic IH [id number] 14:58:00 Test Item Value Reference Range Interpretation [...] viable (live) and non-viable,SARS -CoV, and SARS-CoV-2. Sloa t performance dep ends on theamount of vi zoraida (antigen) in th e sample.This sola t has not been FDA cleare d or approved; the t est hasbeen authori zed by FDA under an Em ergency Use Authorizati on(EUA) for use by labo ratories certified under the CLIA thatmeet the requirements to perform moderate, high or waivedcomplexit y tests. BASIC METABOLIC [id number] 13:47:00 Test Item Value Reference Range Interpretation [...] code = 9.9 mg/dL 8.0-10.5 N CA) [id number] 13:47:00 Test Item Value Reference Range Interpretation Comments PREALBUMIN (test code = PREALB) 12.4 mg/dL 16.0-40.0 L PROTHROMBIN [id number] 13:35:00 Test Item Value Reference Range Interpretation Comments PROTHROMBIN TIME 12.6 SECONDS 9.3-12.9 N PATIENT (test code = PTP) INTERNATIONAL NORMAL 1.1 0.8-1.2 N TARGET INR BY RATIO (test code = INDICATIO N Indication INR) INR1. Prophylax is of venous thrombos is 2.0 - 3.0 (orthoped ic surgery), Proph ylaxis of venous throm bosis (other than hig h-risk surgery), Treat ment of Deep Vein Thrombosis/Pulm onary Embolism, Preve ntion of systemic emb olism - Tissue heart va lves, Acute Myocardia l Infarction (to prevent systemic emboli sm), Valvular heart disease, Atrial Fibrillation, Bileaflet mecha nical valve in aortic position.2. Mec hanical prosthetic valv es (high risk), 2. 5 - 3.5 Presence of Lup us Anticoagulant o r Antiphospholipi d Antibodies, Pre vention of systemic emb olism - Acute Myocardia l Infarction (to prevent recurrent infar ct). CBC W/AUTO [id number] 13:26:00 Test Item Value Reference Range Interpretation [...] 0.0-0.1 N NRBC#) - XR CHEST 2 [id number] 00:00:00 [facility] : 1945 Sex: F FAX:Ben Munroe MD [phone] [place]: St: PRE FAX: Lucio Poe MD [phone] FAX: Kasey Mccormack DO [phone] Name: TC HARDEN [facility] : 1945 Age/S: 75/F [address] [place] [address] Unit #: [id number] Loc: [place] [address] Phys: Lucio Grier MD Acct: [id number] Dis Date: Status: PRE SDC PHONE #: [phone] Exam Date: 08/13/2021 1354 FAX #: [phone] Reason: PREOP EXAMS: CPT CODE: [id number] XR CHEST 2 V 16760 PROCEDURE INFORMATION: Exam: XR Chest Exam date and time: 08/13/2021 1:31 PM Age: 75 years old Clinical indication: Pre-operative exam; Respiratory screening exam; Additional info: Preop TECHNIQUE: Imaging protocol: XR of the chest. Views: 2 views. PA and Lateral COMPARISON: No relevant prior studies available. FINDINGS: Lungs: Slightly increased parenchymal markingsare seen, likely chronic in nature. Pleural spaces: Minimal left layering pleural effusion or scarring is seen. Heart/Mediastinum: Heart is borderline in size. Vasculature: There is atherosclerotic calcification of the aorta. Bones/joints: Left shoulder hardware is partially seen. IMPRESSION: 1. Minimal left layering pleural effusion or scarring is seen. 2. Slightly increased parenchymal markings areseen, likely chronic in nature. at 1403 Reported and signed by: Rich Modi D.O. CC: Ben Munroe MD; Lucio Grier MD; Kasey Gupta DO Technologist: RT Wilfred(Beverly) Trnscrd Date/Time/By: 08/13/2021 (5956) : By: [email or web address] Orig Print D/T: S: 08/13/2021 (6626) PAGE 1 Signed ReportTISSUE [id number] 17:45:00Surgical Pathology Report Case: [id number] Authorizing Provider: Rick Flynn, Collected: 10/27/2018 0955 Ordering Location: [facility] Received: 10/27/2018 1010 PERIOPERATIVE SERVICESPathologist: Gilbert Anderson MD Specimen: Plaque, LEFT CAROTID PLAQUE ARTERY, LEFT CAROTID, ENDARTERECTOMY:CALCIFIC ATHEROSCLEROTIC PLAQUE Signing Pathologist Direct Phone Line: [phone] signed by Gilbert Anderson MD on 11/02/2018 at 5:45 [id number]; [id number] carotid stenosisLeft carotid plaqueThe specimen is received in a formalin-filled container and labeled with the patient's information and labeled "left carotid plaque" and consists of a calcified tubular shaped segment of tissuemeasuring 1.5 cm in length x 0.6 cm in diameter. Materials Engineer sections are submitted A1 for decal.CG/pl PerformedCBC W/PLT COUNT & AUTO [id number] 06:55:00 Test Item Value Reference Range Interpretation [...] 0-1 PERCENT (BEAKER) (test code = 2801) [id number] 06:04:00 Test Item Value Reference Range Interpretation Comments MAGNESIUM (BEAKER) (test code = 1.9 mg/dL 1.6-2.6 627) BASIC METABOLIC [id number] 06:04:00 Test Item Value Reference Range Interpretation [...] APPLICABLE FOR DIALYSIS PATIEN TS. HEMOGLOBIN AND [id number] 14:48:00 Test Item Value Reference Range Interpretation Comments HEMOGLOBIN (BEAKER) (test code = 7.4 GM/DL 11.2-15.7 L 410) HEMATOCRIT (BEAKER) (test code = 25.9 % 34.1-44.9 L 411) BASIC METABOLIC [id number] 08:59:00 Test Item Value Reference Range Interpretation [...] APPLICABLE FOR DIALYSIS PATIEN TS. HEMOGLOBIN AND [id number] 08:43:00 Test Item Value Reference Range Interpretation Comments HEMOGLOBIN (BEAKER) (test code = 7.7 GM/DL 11.2-15.7 L 410) HEMATOCRIT (BEAKER) (test code = 26.7 % 34.1-44.9 L 411) HEMOGLOBIN AND [id number] 02:15:00 Test Item Value Reference Range Interpretation Comments HEMOGLOBIN (BEAKER) (test code = 6.2 GM/DL 11.2-15.7 L 410) HEMATOCRIT (BEAKER) (test code = 22.2 % 34.1-44.9 L 411) [id number] 01:43:00 Test Item Value Reference Range Interpretation Comments MAGNESIUM (BEAKER) (test code = 1.6 mg/dL 1.6-2.6 627) BASIC METABOLIC [id number] 01:43:00 Test Item Value Reference Range Interpretation [...] (test code = 413) PLATELET AGGREGATION: FUNCTION [id number] 19:33:00 Test Item Value Reference Range Interpretation Comments WEAK ADP 98 % 60-91 H RESULT(BEAKER) (test code = 2135) PLATELET FUNCTION 60-100% indicates SCREEN INTERP (BEAKER) normal platelet (test code = 2173) function [id number] Ema Londono MD (BEAKER) (test code = (electronic signature) 2622) PLATELET COUNT AGG 171 K/CU MM 150-450 (BEAKER) (test code = 2656) Platelet Function Screen results may be falsely low with platelet counts<100,000/cu mm.for patients on clopidogrel in past two weeksfor patients on clopidogrel in past two weeksfor patients on clopidogrel in past two weeksHGB/HCT (H&H) - STAT [id number] 11:58:00 Test Item Value Reference Range Interpretation Comments HEMOGLOBIN (BEAKER) (test code = 7.6 g/dL 12.0-15.0 L 410) HEMATOCRIT (BEAKER) (test code = 22.0 % 36.0-45.0 L 411) GLUCOSE-STAT [id number] 11:57:00 Test Item Value Reference Range Interpretation Comments GLUCOSE RANDOM (BEAKER) (test code = 96 mg/dL 70-110 652) POTASSIUM-STAT [id number] 11:57:00 Test Item Value Reference Range Interpretation Comments POTASSIUM (BEAKER) (test code = 3.8 meq/L 3.6-5.5 379) POTASSIUM-STAT [id number] 09:09:00 Test Item Value Reference Range Interpretation Comments POTASSIUM (BEAKER) (test code = 3.6 meq/L 3.6-5.5 379) BLOOD GAS, [id number] 09:09:00 Test Item Value Reference Range Interpretation [...] (test code = 1819) 100.0 % GLUCOSE-STAT [id number] 09:09:00 Test Item Value Reference Range Interpretation Comments GLUCOSE RANDOM (BEAKER) (test code 112 mg/dL 70-110 H = 652) HGB/HCT (H&H) - STAT [id number] 09:09:00 Test Item Value Reference Range Interpretation Comments HEMOGLOBIN (BEAKER) (test code = 7.5 g/dL 12.0-15.0 L 410) HEMATOCRIT (BEAKER) (test code = 22.0 % 36.0-45.0 L 411) CALCIUM, [id number] 09:09:00 Test Item Value Reference Range Interpretation Comments CALCIUM IONIZED (BEAKER) (test 1.04 mmol/L 1.12-1.27 L code = 698) PH, BLOOD (BEAKER) (test code = 7.30 1810) SODIUM NA-STAT [id number] 09:08:00 Test Item Value Reference Range Interpretation Comments SODIUM (BEAKER) (test code = 381) 138 meq/L 135-148 POCT-GLUCOSE [id number] 06:33:00 Test Item Value Reference Range Interpretation Comments POC-GLUCOSE METER 110 mg/dL 70-110 TESTED AT [facility] 6720 (BEAKER) (test code = ENEDINA SAHA [place] 1538) [address] RAD, CHEST, 2 [id number] 13:20:00Reason for exam:->pre op screenFINAL REPORT Chest [...] Maurice Verified Date/Time: 10/26/2018 13:20:52 Reading Location: [address] Consult Reading Room LIPID PANEL 2018-10-26 12:51:00 Test Item Value Reference Range Interpretation Comments TRIGLYCERIDES (BEAKER) (test code = 110 mg/dL 540) CHOLESTEROL (BEAKER) (test code = 203 mg/dL 631) HDL CHOLESTEROL (BEAKER) (test code 74 mg/dL = 976) LDL CHOLESTEROL CALCULATED (BEAKER) 107 mg/dL (test code = 633) Triglyceride Reference Range: Low Risk <150 Borderline 150-199 High Risk 200- 499 Very High Risk >=500Cholesterol Reference Range: Low Risk <200 Borderline 200-239 High Risk >240HDL Cholesterol Reference Range: Low Risk >=60 High Risk <40LDL Cholesterol Reference Range: Optimal <100 Near Optimal 100-129 Borderline 130-159 High 160-189 Very High >=190BASIC METABOLIC [id number] 12:51:00 Test Item Value Reference Range Interpretation [...] PATIEN TS. CBC W/PLT COUNT & AUTO [id number] 12:47:00 Test Item Value Reference Range Interpretation [...] PERCENT (BEAKER) (test code = 2801) PROTHROMBIN [id number] 12:45:00 Test Item Value Reference Range Interpretation Comments PROTIME (BEAKER) (test code = 13.1 seconds 11.7-14.7 759) INR (BEAKER) (test code = 370) 1.0 <=5.9 RECOMMENDED COUMADIN/WARFARIN INR THERAPY RANGESSTANDARD DOSE: 2.0 - 3.0 Includes: PROPHYLAXIS for venous thrombosis, systemic embolization; TREATMENT for venous thrombosis and/or pulmonary embolus.HIGH RISK: Target INR is 2.5-3.5 for patients with mechanical heart valves.[id number] 07:41:00 Test Item Value Reference Range Interpretation Comments MAGNESIUM (BEAKER) (test code = 1.9 mg/dL 1.6-2.6 627) BASIC METABOLIC [id number] 07:41:00 Test Item Value Reference Range Interpretation [...] PATIEN TS. CBC W/PLT COUNT & AUTO [id number] 07:12:00 Test Item Value Reference Range Interpretation [...] 0-1 PERCENT (BEAKER) (test code = 2801) [id number] 07:19:00 Test Item Value Reference Range Interpretation [...] % 20-55 L (test code = 2590) [id number] 06:41:00 Test Item Value Reference Range Interpretation Comments MAGNESIUM (BEAKER) (test code = 1.9 mg/dL 1.6-2.6 627) BASIC METABOLIC [id number] 06:41:00 Test Item Value Reference Range Interpretation [...] PATIEN TS. CBC W/PLT COUNT & AUTO [id number] 06:20:00 Test Item Value Reference Range Interpretation [...] 0-1 PERCENT (BEAKER) (test code = 2801) [id number] 06:02:00 Test Item Value Reference Range Interpretation Comments MAGNESIUM (BEAKER) (test code = 1.8 mg/dL 1.6-2.6 627) BASIC METABOLIC [id number] 06:02:00 Test Item Value Reference Range Interpretation [...] PATIEN TS. CBC W/PLT COUNT & AUTO [id number] 05:35:00 Test Item Value Reference Range Interpretation [...] code = 2801) MR, SPINE, LUMBAR, WITHOUT [id number] 14:56:00FINAL REPORT MRI of the lumbar spine Comparison: None Reason for exam: Low backpain, rapidly progressive neuro deficit Discussion: Sagittal and axial multisequence MR imaging of the lumbar spine was provided L5/S1: The disc is degenerated and narrow with broad disc protrusion centrally into the left. I could not exclude subarticular compromise of the left S1 nerve root. There isno significant central canal stenosis. Right foramen is [...] be correlated with corresponding specific radiculopathy as detailedabove. Signed: Catrachita Calleort Verified Date/Time: 02/10/2018 14:56:55 Reading Location: [facility] Consult Reading Room MR, SPINE, THORACIC, WITHOUT [id number] 14:43:00FINAL REPORT MRI of the thoracic spine [...] T12 level, perhaps a single focus of cerebralhydromyelia. Cord has otherwise normal size and signal intensity. Paraspinal structures are unremarkable. Impressions: 1. Multiple levels of chronic compression deformity but no evidence of acute spineinjury. 2. Single chronic tiny cavitation of the distal cord of doubtful clinical relevance. Neurological correlation for myelopathy is warranted. Consider six month pre and postcontrast thoracic spine MRI follow-up. Signed: Catrachita Calle Verified Date/Time: 02/10/2018 14:43:52 Reading Location: [facility] C013W Consult Reading Room [id number] 04:38:00 Test Item Value Reference Range Interpretation Comments MAGNESIUM (BEAKER) (test code = 2.1 mg/dL 1.6-2.6 627) BASIC METABOLIC [id number] 04:38:00 Test Item Value Reference Range Interpretation [...] PATIEN TS. CBC W/PLT COUNT & AUTO [id number] 04:21:00 Test Item Value Reference Range Interpretation [...] code = 2801) URINALYSIS W/ REFLEX URINE [id number] 12:55:00 Test Item Value Reference Range Interpretation [...] /LPF 514) SOURCE(BEAKER) (test code = 2795) [id number] 05:52:00 Test Item Value Reference Range Interpretation Comments MAGNESIUM (BEAKER) (test code = 2.1 mg/dL 1.6-2.6 627) BASIC METABOLIC [id number] 05:52:00 Test Item Value Reference Range Interpretation [...] PATIEN TS. CBC W/PLT COUNT & AUTO [id number] 05:33:00 Test Item Value Reference Range Interpretation [...] (test code = 2801) VITAMIN B12 AND [id number] 06:37:00 Test Item Value Reference Range Interpretation Comments VITAMIN B12 (BEAKER) (test code = 460 pg/mL 213-816 774) FOLATE (BEAKER) (test code = 362) 4.2 ng/mL >=7.0 L TSH/FREE T4 IF [id number] 06:22:00 Test Item Value Reference Range Interpretation Comments THYROID STIMULATING HORMONE 1.37 uIU/mL 0.35-4.94 (BEAKER) (test code = 772) [id number] 06:16:00 Test Item Value Reference Range Interpretation Comments PHOSPHORUS (BEAKER) (test code = 3.7 mg/dL 2.3-4.7 604) [id number] 06:16:00 Test Item Value Reference Range Interpretation Comments MAGNESIUM (BEAKER) (test code = 1.9 mg/dL 1.6-2.6 627) BASIC METABOLIC [id number] 06:16:00 Test Item Value Reference Range Interpretation [...] NOT APPLICABLE FOR DIALYSIS PATIEN TS. LIPID [id number] 06:16:00 Test Item Value Reference Range Interpretation Comments TRIGLYCERIDES (BEAKER) (test code = 71 mg/dL 540) CHOLESTEROL (BEAKER) (test code = 135 mg/dL 631) HDL CHOLESTEROL (BEAKER) (test code 47 mg/dL = 976) LDL CHOLESTEROL CALCULATED (BEAKER) 74 mg/dL (test code = 633) Triglyceride Reference Range: Low Risk <150 Borderline 150-199 High Risk 200- 499 Very High Risk >=500Cholesterol Reference Range: Low Risk <200 Borderline 200-239 High Risk >240HDL Cholesterol Reference Range: Low Risk >=60 High Risk <40LDL Cholesterol Reference Range: Optimal <100 Near Optimal 100-129 Borderline 130-159 High 160-189 Very High >=190C-REACTIVE [id number] 06:16:00 Test Item Value Reference Range Interpretation Comments C-REACTIVE PROTEIN (BEAKER) (test 7.42 mg/dL 0.00-0.50 H code = 676) CBC W/PLT COUNT & AUTO [id number] 05:44:00 Test Item Value Reference Range Interpretation [...] (BEAKER) (test code = 2801) URINALYSIS W/ [id number] 20:50:00 Test Item Value Reference Range Interpretation [...] 514) SOURCE(BEAKER) (test code = Urine, Voided 9761) MR, BRAIN, WITHOUT [id number] 19:27:00Reason for exam:->Ischemic Stroke EvaluationFINAL REPORT Exam: MRI brain without contrast. Comparison: None. Clinical indication: Stroke. Ischemic Stroke Evaluation Technique: Multiplanar multi sequential MR imaging of the brain was performed without the administration of intravenous contrast. Findings: There is generalizedparenchymal atrophy. There are foci of restricted diffusion [...] are unremarkable. The craniocervical junction is normal. Impression:Smallacute infarcts in the supratentorial and infratentorial brain, which may be embolic in etiology. No acute intracranial hemorrhage or mass effect. Pfqa-yn-hozqiyqy white matter microvascular ischemic changes.Prior microhemorrhage in the right frontal lobe. Findings discussed with Dr Helm at 7:25 PM on 02/07/2018. Signed: Shane Rodriguez MDReport Verified Date/Time: 02/07/2018 19:27:07 Reading Location: [address] Transitional Reading Room 07:27 PMMR, MRA, BRAIN, WITHOUT [id number] 19:25:00Reason for exam:->Ischemic Stroke EvaluationFINAL REPORT MRA head and neck without contrast. CLINICAL HISTORY: Stroke. Ischemic stroke evaluation.. COMPARISON: None. TECHNIQUE: Two- and three-dimensional mxpv-pg-ozuuxk MRA images of the intra- and extracranial [...] is antegrade in both vertebral arteries. MRA quinault ofWillis: There is irregularity of the bilateral carotid [...] or flow-limiting stenosis. Signed: Shane Rodriguez Verified Date/Time: 02/07/2018 19:25:57 Reading Location: [address] Transitional Reading Room MR, MRA, NECK, WITHOUT IV [id number] 19:25:00Reason for exam:->Ischemic Stroke EvaluationFINAL REPORT MRA head and neck without contrast. CLINICAL HISTORY: Stroke. Ischemic stroke evaluation.. COMPARISON: None. TECHNIQUE: Two- and three-dimensional dnir-nj-shfqxk MRA images of the intra- and extracranial [...] is antegrade in both vertebral arteries. MRA quinault ofWillis: There is irregularity of the bilateral carotid [...] or flow-limiting stenosis. Signed: Shane Rodriguez Verified Date/Time: 02/07/2018 19:25:57 Reading Location: [address] Transitional Reading Room HEMOGLOBIN [id number] 12:15:00 Test Item Value Reference Range Interpretation Comments HEMOGLOBIN A1C (BEAKER) (test code = 6.0 % 4.3-6.1 368) TSH/FREE T4 IF [id number] 12:13:00 Test Item Value Reference Range Interpretation Comments THYROID STIMULATING HORMONE 1.43 uIU/mL 0.35-4.94 (BEAKER) (test code = 772) LIPID [id number] 08:53:00 Test Item Value Reference Range Interpretation Comments TRIGLYCERIDES (BEAKER) (test code = 67 mg/dL 540) CHOLESTEROL (BEAKER) (test code = 142 mg/dL 631) HDL CHOLESTEROL (BEAKER) (test code 48 mg/dL = 976) LDL CHOLESTEROL CALCULATED (BEAKER) 81 mg/dL (test code = 633) Triglyceride Reference Range: Low Risk <150 Borderline 150-199 High Risk 200- 499 Very High Risk >=500Cholesterol Reference Range: Low Risk <200 Borderline 200-239 High Risk >240HDL Cholesterol Reference Range: Low Risk >=60 High Risk <40LDL Cholesterol Reference Range: Optimal <100 Near Optimal 100-129 Borderline 130-159 High 160-189 Very High >=190BASIC METABOLIC [id number] 08:53:00 Test Item Value Reference Range Interpretation [...] PATIEN TS. CBC W/PLT COUNT & AUTO [id number] 08:43:00 Test Item Value Reference Range Interpretation [...] PERCENT (BEAKER) (test code = 2801) TISSUE [id number] 14:20:00Surgical Pathology Report Case: [id number] Authorizing Provider: Carlos Seo MD Collected: 10/21/2017 0837 Ordering Location: [facility] Received: 10/21/2017 0931 PERIOPERATIVE SERVICES Pathologist: Gilbert Anderson MD Specimen: Carotid, Right, RIGHT CAROTID PLAQUE ARTERY, RIGHT CAROTID, ENDARTERECTOMY:CALCIFIC ATHEROSCLEROTIC PLAQUE Signing Pathologist Direct Phone Line: [phone] signed by Gilbert Anderson MD on 10/29/2017 at 2:20 [id number]; [id number] carotid plaqueIn saline labeled "carotid, right", description "right carotid plaque" is a 3.5 cm in length x 0.9 cm in diameter michel-white to yellow-ang cylindrical previously incised portion of fibrous tissue. Sectioning reveals focal calcification. Materials Engineer sections are submitted in cassette A1 for decalcification. [id number] 05:30:00 Test Item Value Reference Range Interpretation Comments MAGNESIUM (BEAKER) (test code = 1.7 mg/dL 1.6-2.6 627) [facility] with resultsCall [facility] with resultsBASIC METABOLIC [id number] 05:30:00 Test Item Value Reference Range Interpretation [...] [facility] with resultsCBC W/PLT COUNT & AUTO [id number] 04:49:00 Test Item Value Reference Range Interpretation [...] (BEAKER) (test code = 2801) BASIC METABOLIC [id number] 05:38:00 Test Item Value Reference Range Interpretation [...] PATIEN TS. CBC W/PLT COUNT & AUTO [id number] 05:13:00 Test Item Value Reference Range Interpretation [...] PERCENT (BEAKER) (test code = 2801) GLUCOSE-STAT [id number] 09:53:00 Test Item Value Reference Range Interpretation Comments GLUCOSE RANDOM (BEAKER) (test code 105 mg/dL 70-110 = 652) HGB/HCT (H&H) - STAT [id number] 09:53:00 Test Item Value Reference Range Interpretation Comments HEMOGLOBIN (BEAKER) (test code = 11.2 g/dL 12.0-15.0 L 410) HEMATOCRIT (BEAKER) (test code = 33.0 % 36.0-45.0 L 411) BASIC METABOLIC [id number] 07:45:00 Test Item Value Reference Range Interpretation [...] PATIEN TS. RAD, CHEST, 1 VIEW, NON [id number] 07:29:00Reason for exam:- >baselineReason for exam:->pre opShould [...] Crawley Verified Date/Time: 10/21/2017 07:29:40 Reading Location: [facility] Radiology ReadingRoom PROTHROMBIN TIME/INR 2017-10-21 07:23:00 Test Item Value Reference Range Interpretation Comments PROTIME (BEAKER) (test code = 13.5 seconds 11.7-14.7 759) INR (BEAKER) (test code = 370) 1.0 <=5.9 RECOMMENDED COUMADIN/WARFARIN INR THERAPY RANGESSTANDARD DOSE: 2.0 - 3.0 Includes: PROPHYLAXIS for venous thrombosis, systemic embolization; TREATMENT for venous thrombosis and/or pulmonary embolus.HIGH RISK: Target INR is 2.5-3.5 for patients with mechanical heart valves.CBC W/PLT COUNT & AUTO [id number] 10:12:00 Test Item Value Reference Range Interpretation [...]
[2022-04-20] MEDS ORDERED: DIGOXIN 0.25 MG/ML AMP ONE (12:59)
[2022-04-20] MEDS ORDERED: METOPROLOL TARTRATE 5 MG/5 ML INJ IV ONE (13:00)
[2022-04-20 13:05] LABS: Absolute Lymphocytes (CBC) 1.4 K/uL (0.7-4.9); Hematocrit 31.4 % (36.0-45.0); Lymphocytes % 19.5 % (15.3-44.8); MCV 78.7 fL (80-100); MPV 10.8 fL (7.6-11.3); RBC Red Blood Cell Count 3.99 M/uL (3.86-4.86)
[2022-04-20] MEDS ORDERED: NA CHLORIDE 0.9% 1,000 ML ONE ×2 (13:09→18:02)
[2022-04-20 13:15] LABS: SARS-CoV-2 Antigen Rapid Res Negative (Negative)
[2022-04-20 13:20] LABS: Protime INR 1.29
[2022-04-20 13:30] LABS: Albumin 3.4 g/dL (3.4-5.0); Bilirubin Direct 0.3 mg/dL (0-0.2); Bilirubin Total 0.7 mg/dL (0.2-1.0); Potassium 3.2 mmol/L (3.5-5.1); Protein, Total 7.5 g/dL (6.4-8.2)
[2022-04-20 13:31] LABS: Magnesium 1.7 mg/dL (1.8-2.4); Troponin High Sensitivity 38.4 pg/mL (<58.9)
--- NOTE | 2022-04-20 13:51 | RAD REPORT ---
EXAM DESCRIPTION: RAD - Chest Single View - 04/20/2022 1:40 pm CLINICAL HISTORY: CHEST PAIN COMPARISON: Portable 05/16/2020 TECHNIQUE: AP portable chest image was obtained 04/20/2022 1:40 pm . FINDINGS: Patient has a baseline pronounced chronic interstitial lung disease. Lung markings are inc reased in prominence in the lower right lung field suspicious for pneumonia superimposed on chronic i nterstitial lung disease. No other area of possible focal infiltrate seen. Cardiomegaly is present. Central vasculature is mildly prominent. A mild failure or volume overload component could be present. No measurable pleural effusion and no pneumothorax. No acute bony abnormality seen. Left shoulder pr osthesis in place. No acute aortic finding. IMPRESSION: Suspected mild or early pneumonia in the right lung base superimposed on chronic interst itial lung pattern. Heart, vasculature and lung markings are all prominent a mild failure or volume overload component co uld also be present.
[2022-04-20 14:27] LABS: Platelet Estimate ADEQ; White Blood Cell Scan OK (OK)
[2022-04-20 14:28] LABS: Anisocytosis 2+; Blood Morphology Comment NOTED (NOT SEEN); Polychromasia SLIGHT
--- NOTE | 2022-04-20 14:50 | RAD REPORT ---
EXAM DESCRIPTION: CT - Chest For Pe Angio - 04/20/2022 2:37 pm CLINICAL HISTORY: right sided chest pain COMPARISON: Chest Single View dated 04/20/2022 TECHNIQUE: Dynamically enhanced 3 mm thick images of the chest were obtained during administration o f approximately 150mL Isovue 370 IV contrast. Coronal and oblique MIP reconstruction images were gene rated and reviewed. Exam utilizes a protocol to evaluate the pulmonary arterial tree. All CT scans are performed using dose optimization technique as appropriate and may include automated exposure control or mA/KV adjustment according to patient size. FINDINGS: No pulmonary emboli are identified. The aorta as imaged shows no acute or suspicious finding. No pericardial thickening or effusion. Card iomegaly is present. Left atrial appendage occlusive device is in place. Cardiac valve and Coronary a rtery calcifications are present. Extensive underlying interstitial lung disease is present. There is patchy opacification in the right lower lobe matching the chest film finding. This is most likely a mild pneumonia. Bilateral pleural effusions are present. No pneumothorax. No mediastinal or hilar suspicious masses. No chest wall masses or abnormal axillary lymphadenopathy. IMPRESSION: No pulmonary emboli identified. Mild or early right lower lobe pneumonia superimposed on chronic interstitial lung disease. Mild bilateral pleural effusions.
[2022-04-20] MEDS ORDERED: CEFTRIAXONE 1000 MG/VIAL ONE (15:29)
[2022-04-20] MEDS ORDERED: NA CHLORIDE 0.9% 100 ML ONE (15:29)
[2022-04-20] MEDS ORDERED: AZITHROMYCIN 250 MG TAB ONE (15:29)
[2022-04-20] MEDS ORDERED: DILTIAZEM HCL 60 MG TAB ONE (15:41)
--- NOTE | 2022-04-20 16:49 | ER ---
Nurse's Notes [facility] Name: Jenniffer Harden Age: 76 yrs Sex: Female : 1945 Arrival Date: 04/20/2022 Time: 12:29 Bed 3 Private MD: Kasey Pinto Diagnosis: Community-acquired pneumonia;Atrial fibrillation with rapid ventricular response Presentation: 04/20 12:36 Chief complaint: Palpitations and SOB x 1 week. Hx of AFib, reports recent medication iw change but unsure which one. Sees Dr. Munroe. Coronavirus screen: At this time, the client does not indicate any symptoms associated with coronavirus-19. Ebola Screen: No symptoms or risks identified at this time. Risk Assessment: Do you want to hurt yourself or someone else? Patient reports no desire to harm self or others. Onset of symptoms was April 13, 2022. 12:36 Method Of Arrival: Wheelchair iw 12:36 Acuity: RUTHIE 2 iw 13:48 Initial Sepsis Screen: Does the patient meet any 2 criteria? No. Patient's initial tp1 sepsis screen is negative. Does the patient have a suspected source of infection? No. Patient's initial sepsis screen is negative. Historical: - Allergies: 12:39 Morphine; hb 12:39 PENICILLINS; hb 12:39 Phenergan; hb - Home Meds: 13:44 sertraline 25 mg oral tab [Active]; clopidogrel 75 mg oral tab [Active]; atorvastatin vg1 80 mg oral tab [Active]; ropinirole 0.25 mg oral tab [Active]; - PMHx: 12:39 Arthritis; Atrial Fib; COPD; Hypertension; mitral valve prolapse; Myocardial hb infarction; Osteoporosis; - Immunization history:: Adult Immunizations up to date. - Social history:: Smoking status: Reported history of juuling and/or vaping. Screenin:47 Abuse screen: Denies threats or abuse. Denies injuries from another. Nutritional tp1 screening: No deficits noted. Tuberculosis screening: No symptoms or risk factors identified. Fall Risk No fall in past 12 months (0 pts). No secondary diagnosis (0 pts). IV access (20 points). Ambulatory Aid- Crutches/Cane/Walker (15 pts). Gait- Weak (10 pts.). Mental Status- Oriented to own ability (0 pts). Total Hall Fall Scale indicates High Risk Score (45 or more points). Fall prevention measures have been instituted. Side Rails Up X 2 Placed Close to Nursing Station Family Present and informed to notify staff if the need to leave the bedside As available patient and family educated on Fall Prevention Program and Strategies. Assessment: 12:40 General: Appears in no apparent distress. uncomfortable, Behavior is calm, cooperative. tp1 Pain: Complains of pain in left rachel of neck Pain does not radiate. Pain currently is 6 out of 10 on a pain scale. Quality of pain is described as pinching, Pain began 11 am. Pain:. Neuro: Cifuentes Agitation-Sedation Scale (RASS): 0 - Alert and Calm Level of Consciousness is awake, alert, obeys commands, Oriented to person, place, time, situation, Reports headache due to nitro that was administered at home at 11 am . Cardiovascular: Reports chest pressure. Cardiovascular: Capillary refill < 3 seconds in bilateral fingers Patient's skin is warm and dry. Rhythm is atrial fibrillation. Respiratory: Reports shortness of breath on exertion Airway is patent Respiratory effort is even, unlabored. GI: Abdomen is flat, non-distended, Patient currently denies nausea, vomiting. : No signs and/or symptoms were reported regarding the genitourinary system. EENT: No signs and/or symptoms were reported regarding the EENT system. Derm: Skin is pink, warm \T\ dry. Derm: Skin is pink, warm \T\ dry. bilateral hands are cold. Musculoskeletal: Circulation, motion, and sensation intact. 13:49 Reassessment: Patient appears in no apparent distress at this time. Patient is alert, tp1 oriented x 3, equal unlabored respirations, skin warm/dry/pink. Reassessment: son is at bedside. Reassessment:. Cardiovascular: Rhythm is atrial fibrillation. 14:21 Reassessment: RICHARD Leung tech attempted to flush AC IV, met resistance so IV will not jl7 work for PE study. 22 G IV inserted in Left FA, flushes easy. CT notified and reports coming to get pt for study. 14:26 Reassessment: escorted to CT via stretcher by pharmacy laboratory technician. tp1 15:09 Reassessment: Patient appears in no apparent distress at this time. Patient is alert, tp1 oriented x 3, equal unlabored respirations, skin warm/dry/pink. Patient denies pain at this time. 16:00 Reassessment: Patient appears in no apparent distress at this time. No changes from tp1 previously documented assessment. Patient is alert, oriented x 3, equal unlabored respirations, skin warm/dry/pink. 16:00 Cardiovascular: Rhythm is atrial fibrillation. tp1 17:00 Reassessment: Patient appears in no apparent distress at this time. No changes from tp1 previously documented assessment. Patient is alert, oriented x 3, equal unlabored respirations, skin warm/dry/pink. resting in bed talking with son Patient denies pain at this time. 18:00 Reassessment: Patient appears in no apparent distress at this time. No changes from tp1 previously documented assessment. Patient is alert, oriented x 3, equal unlabored respirations, skin warm/dry/pink. meal tray at bedside Patient denies pain at this time. 20:23 Reassessment: [phone] (Mother). ll3 21:04 Reassessment: IV. ke1 Vital Signs: 12:36 BP 117 / 77; Pulse 154; Resp 20; Temp 98.2; Pulse Ox 94% on R/A; Pain 3/10; hb 12:53 BP 140 / 117; Pulse 166; Resp 23; Pulse Ox 94% on R/A; tp1 12:58 BP 126 / 102; Pulse 144; Resp 27; Pulse Ox 94% on R/A; tp1 13:03 BP 121 / 99; Pulse 130; Resp 27; Pulse Ox 94% on R/A; tp1 13:08 BP 110 / 89; Pulse 112; Resp 25; Pulse Ox 91% on R/A; tp1 13:40 BP 109 / 73; Pulse 130; Resp 23; Pulse Ox 95% on R/A; tp1 14:00 BP 105 / 83; Pulse 112; Resp 22; Pulse Ox 94% on R/A; Weight 63.5 kg; tp1 15:10 BP 103 / 72; Pulse 130; Resp 22; Pulse Ox 96% on R/A; tp1 16:00 BP 110 / 81; Pulse 124; Resp 16; Pulse Ox 97% on R/A; tp1 17:00 BP 110 / 64; Pulse 124; Resp 25; Pulse Ox 92% on R/A; tp1 18:00 BP 99 / 72; Pulse 112; Resp 21; Pulse Ox 93% on R/A; tp1 19:30 BP 113 / 68; Pulse 86; Resp 24; Pulse Ox 95% on R/A; ll3 20:31 BP 108 / 73; Pulse 84; Resp 21; Pulse Ox 98% on R/A; ll3 22:00 BP 112 / 76; Pulse 86; Resp 19; Temp 98.4(TE); Pulse Ox 96% on R/A; Pain 0/10; ke1 12:36 HR variable, 80-160 in triage hb ED Course: 12:29 Patient arrived in ED. am2 12:29 Kasey Pinto MD is Private Physician. am2 12:38 Triage completed. iw 12:40 Arm band placed on. hb 12:40 Patient has correct armband on for positive identification. Placed in gown. Bed in low tp1 position. Call light in reach. Side rails up X2. Adult w/ patient. 12:43 Scotty Pike PA is PHCP. jm 12:43 El Arguelles DO is Attending Physician. jmm 12:50 Initial lab(s) drawn, by me, sent to lab. Inserted saline lock: 22 gauge in left vg1 antecubital area, using aseptic technique. Blood collected. 13:35 Katharine Mccrary, INOCENCIO is Primary Nurse. tp1 13:42 XRAY Chest (1 view) In Process Unspecified. EDMS 14:21 Inserted saline lock: 22 gauge in left forearm, using aseptic technique. jl7 14:40 Chest For Pe Angio In Process Unspecified. EDMS 16:48 Won Rios MD is Hospitalizing Provider. jmm 21:06 Missed attempt(s): 24 gauge 22 G L FA infiltrated and 22 G L AC clogged. Attempt ke1 unsuccessful to insert new line, tinny veins difficult stick, charge nurse notified and is attempting to get a new line. 22:13 No provider procedures requiring assistance completed. Patient did not have IV access ke1 during this emergency room visit. Administered Medications: 12:53 Drug: Metoprolol 5 mg Route: IVP; Site: left antecubital; tp1 12:58 Drug: Metoprolol 5 mg Route: IVP; Site: left antecubital; tp1 13:01 Drug: NS 0.9% 1000 ml Route: IV; Rate: 1 bolus; Site: left antecubital; tp1 18:11 Follow up: IV Status: Completed infusion; IV Intake: 1000ml tp1 13:03 Drug: Metoprolol 5 mg Route: IVP; Site: left antecubital; tp1 15:31 Follow up: Response: Cardiac rhythm is unchanged tp1 15:05 CANCELLED (Duplicate Order): Cardizem (diltiazem) 180 mg PO once [facility] 15:28 Drug: Rocephin (cefTRIAXone) 1 grams Route: IV; Rate: calculated rate; Site: left tp1 antecubital; 16:12 Follow up: IV Status: Completed infusion; IV Intake: 100ml tp1 15:29 Drug: AZITHromycin 500 mg Route: PO; tp1 18:11 Follow up: Response: No adverse reaction tp1 15:42 Drug: Cardizem (diltiazem) 60 mg Route: PO; vg1 18:11 Follow up: Response: No adverse reaction tp1 18:11 Drug: NS 0.9% 500 ml Route: IV; Rate: bolus; Site: left forearm; tp1 18:57 Follow up: IV Status: Completed infusion; IV Intake: 500ml tp1 Medication: 20:33 VIS not applicable for this client. ll3 Intake: 16:12 IV: 100ml; Total: 100ml. tp1 18:11 IV: 1000ml; Total: 1100ml. tp1 18:57 IV: 500ml; Total: 1600ml. tp1 Output: 20:00 Urine: 200ml (Voided); Total: 200ml. ll3 Outcome: 16:49 Decision to Hospitalize by Provider. keith 22:13 Admitted to ICU accompanied by nurse. ke1 22:13 Condition: good 22:13 Instructed on the need for admit. 22:14 Patient left the ED. ke1 Signatures: Dispatcher [employer] EDMS Scotty Pike PA PA jmm Williams, Irene RN Susy Pabon RN Reed Rose RN RN jl7 Deedee Cee Victoria RN RN 1 Norris Valenzuela RN RN 3 Katharine Mccrary RN RN tp1 Taj Frye RN RN ke1 Corrections: (The following items were deleted from the chart) 12:39 12:36 BP 117 / 77; Pulse 128bpm; Resp 20bpm; Pulse Ox 98% RA; Temp 98.2F; Pain 3/10; HR hb variable, 80-137 in triage; iw 12:40 12:36 BP 117 / 77; Pulse 128bpm; Resp 20bpm; Pulse Ox 94% RA; Temp 98.2F; Pain 3/10; HR hb variable, 80-137 in triage; hb 13:11 12:55 Inserted saline lock: 22 gauge in left antecubital area, using aseptic technique. vg1 Blood collected. vg1 13:11 12:55 Initial lab(s) drawn, by me, sent to lab. vg1 vg1 13:49 12:40 Cardiovascular: Capillary refill < 3 seconds in bilateral fingers Patient's skin tp1 is warm and dry. tp1 13:50 13:49 Reassessment: Patient appears in no apparent distress at this time. Patient is tp1 alert, oriented x 3, equal unlabored respirations, skin warm/dry/pink. tp1 15:10 14:00 BP 105 / 83; Pulse 112bpm; Resp 22bpm; Pulse Ox 94% RA; tp1 tp1 19:16 19:00 IV 1500, Intake Total 1500; Urine 50, (Voided), Output Total 50. tp1 tp1
--- NOTE | 2022-04-20 16:49 | EDPHYS ---
Physician Documentation [facility] Name: Jenniffer Harden Age: 76 yrs Sex: Female : 1945 Arrival Date: 04/20/2022 Time: 12:29 Bed 3 Private MD: Kasey Pinto ED Physician El Arguelles HPI: 04/20 12:44 This 76 yrs old Female presents to ER via Wheelchair with complaints of afib, High jmm Blood Pressure. 12:44 The patient presents with a history of heart racing. Onset: The symptoms/episode jmm began/occurred gradually, 1 week(s) ago. Duration: The patient or guardian reports a single episode, that is still ongoing. Modifying factors: The symptoms are aggravated by nothing. The symptoms are alleviated by nothing. Associated signs and symptoms: Pertinent positives: neck pain. The patient has not experienced similar symptoms in the past. Patient complains of chest discomfort, radiating to her left side of her neck. . Historical: - Allergies: 12:39 Morphine; hb 12:39 PENICILLINS; hb 12:39 Phenergan; hb - Home Meds: 13:44 sertraline 25 mg oral tab [Active]; clopidogrel 75 mg oral tab [Active]; atorvastatin vg1 80 mg oral tab [Active]; ropinirole 0.25 mg oral tab [Active]; - PMHx: 12:39 Arthritis; Atrial Fib; COPD; Hypertension; mitral valve prolapse; Myocardial hb infarction; Osteoporosis; - Immunization history:: Adult Immunizations up to date. - Social history:: Smoking status: Reported history of juuling and/or vaping. ROS: 12:44 Constitutional: Negative for fever, chills, and weight loss, Respiratory: Negative for jmm shortness of breath, cough, wheezing, and pleuritic chest pain. 12:44 Cardiovascular: Positive for chest pain, palpitations. 12:44 All other systems are negative. Exam: 12:44 Constitutional: This is a well developed, well nourished patient who is awake, alert, jmm and in no acute distress. Head/Face: atraumatic. Eyes: EOMI, no conjunctival erythema appreciated ENT: Moist Mucus Membranes Neck: Trachea midline, Supple Chest/axilla: Normal chest wall appearance and motion. Respiratory: Normal respirations, no respiratory distress appreciated Abdomen/GI: Non distended Back: Normal ROM Skin: General appearance color normal MS/ Extremity: Moves all extremities, no obvious deformities appreciated, no edema noted to the lower extremities Neuro: Awake and alert Psych: Behavior is normal, Mood is normal, Patient is cooperative and pleasant 12:44 Cardiovascular: Rate: tachycardic, Rhythm: regular. 18:30 ECG was reviewed by the Attending Physician. [facility] Vital Signs: 12:36 BP 117 / 77; Pulse 154; Resp 20; Temp 98.2; Pulse Ox 94% on R/A; Pain 3/10; hb 12:53 BP 140 / 117; Pulse 166; Resp 23; Pulse Ox 94% on R/A; tp1 12:58 BP 126 / 102; Pulse 144; Resp 27; Pulse Ox 94% on R/A; tp1 13:03 BP 121 / 99; Pulse 130; Resp 27; Pulse Ox 94% on R/A; tp1 13:08 BP 110 / 89; Pulse 112; Resp 25; Pulse Ox 91% on R/A; tp1 13:40 BP 109 / 73; Pulse 130; Resp 23; Pulse Ox 95% on R/A; tp1 14:00 BP 105 / 83; Pulse 112; Resp 22; Pulse Ox 94% on R/A; Weight 63.5 kg; tp1 15:10 BP 103 / 72; Pulse 130; Resp 22; Pulse Ox 96% on R/A; tp1 16:00 BP 110 / 81; Pulse 124; Resp 16; Pulse Ox 97% on R/A; tp1 17:00 BP 110 / 64; Pulse 124; Resp 25; Pulse Ox 92% on R/A; tp1 18:00 BP 99 / 72; Pulse 112; Resp 21; Pulse Ox 93% on R/A; tp1 19:30 BP 113 / 68; Pulse 86; Resp 24; Pulse Ox 95% on R/A; ll3 20:31 BP 108 / 73; Pulse 84; Resp 21; Pulse Ox 98% on R/A; ll3 22:00 BP 112 / 76; Pulse 86; Resp 19; Temp 98.4(TE); Pulse Ox 96% on R/A; Pain 0/10; ke1 12:36 HR variable, 80-160 in triage hb MDM: 12:54 Patient medically screened. [facility] 13:11 Data reviewed: vital signs, nurses notes. [facility] 16:47 Counseling: I had a detailed discussion with the patient and/or guardian regarding: the [facility] historical points, exam findings, and any diagnostic results supporting the discharge/admit diagnosis, lab results, radiology results, the need for further work-up and treatment in the hospital. ED course: Unable to keep rate consistently below 110 bpm. Patient is not hypoxic. Source is pneumonia, patient does meet SIRS due to tachypnea and tachycardia. Currently awaiting lactate. Patient is currently not hypotensive.. 19:51 ED course: A source of infection is pneumonia, be tachycardia and respiratory rate are jmm elevated see lactate is 2.7. Patient meets criteria for severe sepsis. Additional IV fluids given but not 30 mils per kilogram due to concerns for volume overload. IV antibiotics administered. Blood cultures drawn. Patient is currently not hypotensive and does not currently qualify for septic shock.. 04/20 12:44 Order name: Basic Metabolic Panel; Complete Time: 13:31 [facility] 04/20 12:44 Order name: CBC with Diff; Complete Time: 14:33 [facility] 04/20 12:44 Order name: LFT's; Complete Time: 13:31 [facility] 04/20 12:44 Order name: Magnesium; Complete Time: 13:31 [facility] 04/20 12:44 Order name: NT PRO-BNP; Complete Time: 13:31 [facility] 04/20 12:44 Order name: PT-INR; Complete Time: 13:31 [facility] 04/20 12:44 Order name: Troponin HS; Complete Time: 13:31 [facility] 04/20 12:44 Order name: SARS RAPID; Complete Time: 13:16 [facility] 04/20 13:10 Order name: CBC Smear Scan; Complete Time: 14:33 [facility] 04/20 16:39 Order name: Blood Culture Adult (2) [facility] 04/20 16:39 Order name: Lactate; Complete Time: 17:40 [facility] 04/20 20:34 Order name: Lactate Sepsis 2 HR Follow-up [facility] 04/20 20:50 Order name: Procalcitonin [facility] 04/20 21:12 Order name: Comprehensive Metabolic Panel [facility] 04/20 12:44 Order name: XRAY Chest (1 view); Complete Time: 13:54 [facility] 04/20 12:44 Order name: EKG; Complete Time: 12:45 [facility] 04/20 12:44 Order name: Cardiac monitoring; Complete Time: 13:01 [facility] 04/20 12:44 Order name: EKG - Nurse/Tech; Complete Time: 13:01 [facility] 04/20 12:44 Order name: IV Saline Lock; Complete Time: 13:01 [facility] 04/20 12:44 Order name: Labs collected and sent; Complete Time: 13:01 [facility] 04/20 12:44 Order name: O2 Per Protocol; Complete Time: 13:01 [facility] 04/20 13:52 Order name: CT Chest For PE Angio [facility] 04/20 13:56 Order name: Chest For Pe Angio; Complete Time: 14:51 [facility] 04/20 12:44 Order name: O2 Sat Monitoring; Complete Time: 13:02 [facility] EC:30 Rate is 171 beats/min. Rhythm is irregularly irregular. Left axis deviation noted. [place] jmm interval is normal. QRS interval is normal. QT interval is normal. No Q waves. T waves are Normal. No ST changes noted. Reviewed by me. Administered Medications: 12:53 Drug: Metoprolol 5 mg Route: IVP; Site: left antecubital; tp1 12:58 Drug: Metoprolol 5 mg Route: IVP; Site: left antecubital; tp1 13:01 Drug: NS 0.9% 1000 ml Route: IV; Rate: 1 bolus; Site: left antecubital; tp1 18:11 Follow up: IV Status: Completed infusion; IV Intake: 1000ml tp1 13:03 Drug: Metoprolol 5 mg Route: IVP; Site: left antecubital; tp1 15:31 Follow up: Response: Cardiac rhythm is unchanged tp1 15:05 CANCELLED (Duplicate Order): Cardizem (diltiazem) 180 mg PO once m 15:28 Drug: Rocephin (cefTRIAXone) 1 grams Route: IV; Rate: calculated rate; Site: left tp1 antecubital; 16:12 Follow up: IV Status: Completed infusion; IV Intake: 100ml tp1 15:29 Drug: AZITHromycin 500 mg Route: PO; tp1 18:11 Follow up: Response: No adverse reaction tp1 15:42 Drug: Cardizem (diltiazem) 60 mg Route: PO; vg1 18:11 Follow up: Response: No adverse reaction tp1 18:11 Drug: NS 0.9% 500 ml Route: IV; Rate: bolus; Site: left forearm; tp1 18:57 Follow up: IV Status: Completed infusion; IV Intake: 500ml tp1 Disposition: 17:15 Co-signature as Attending Physician, El Arguelles DO PA/MANAGER PROGRAM's history reviewed, patient ms3 interviewed, and examined. HPI: 76 yo female presents for palpitations and R lower chest pain that began yesterday. Patient has hx of a fib s/p ablation and watchman procedure. My personal exam of patient reveals: Patient is alert and oriented x4, in no apparent distress, speaking full sentences. Patient's heart rate is tachycardic and irregular. Lungs are clear to auscultation bilaterally. Abdomen nontender to palpation bowel sounds present. Skin is without rashes or diaphoresis. I agree with assessment and care plan and confirm the diagnosis (es) above. Disposition Summary: 04/20/22 16:49 Hospitalization Ordered Hospitalization Status: Inpatient Admission [facility] Provider: Won Rios Condition: Stable [facility] Problem: new jmm Symptoms: have improved [facility] Bed/Room Type: Standard [facility] Location: Intensive Care Unit(04/20/22 20:02) cg Room Assignment: 3-(04/20/22 20:02) cg Diagnosis - Community-acquired pneumonia jmm - Atrial fibrillation with rapid ventricular response [facility] Forms: - Medication Reconciliation Form jm - SBAR form [facility] Critical care time excluding procedures: 17:21 Critical care time: Bedside Care: 35 minutes, Consultation: 10 minutes, Family ms3 Intervention: 10 minutes. Total time: 55 minutes Signatures: Dispatcher [employer] EDMS Scotty Pike PA PA jmm Garcia, Cindy RN INOCENCIO Susy Mario RN RN Guerline Huang RN RN vg1 Sims, Marcus, DO DO ms3 Katharine Mccrary RN RN tp1 Corrections: (The following items were deleted from the chart) 15:05 14:56 Cardizem (diltiazem) 180 mg PO once ordered. [facility] 20:02 16:49 Telemetry/MedSurg (Inpatient) [facility] 20:02 16:49 [facility]
[2022-04-20] MEDS ORDERED: ONDANSETRON 4 MG/2 ML VIAL IV PRN (16:58)
[2022-04-20] MEDS ORDERED: [UNRECOGNIZED DRUG - REMARK] XX PRN (17:08)
[2022-04-20] MEDS ORDERED: FUROSEMIDE 20 MG/ 2ML VIAL IV ONE (17:38)
--- NOTE | 2022-04-20 17:38 | P.HP ---
Certification for Inpatient With expected LOS: >2 Midnights Practitioner: I am a practitioner with admitting privileges, knowledge of patient current condition, hospital course, and medical plan of care. Services: Services provided to patient in accordance with Admission requirements found in Title 42 Section 412.3 of the Code of Federal Regulations Patient History Date of Service: 04/20/22 Reason for admission: Shortness of breath, A. fib, possible right lower lobe pneumonia History of Present Illness: Patient is 76 years of age with a history of coronary artery disease stroke or atrial fibrillation admitted with about blood pressure high heart rate her blood pressure has been very variable for the past week apparently she was taking verapamil at home was told to stop denies any fever chills cough sputum and complaining of chronic dyspnea on exertion a former smoker quit 10 years ago eyes any swelling of her lower extremity Allergies Penicillins Allergy (Verified 10/06/17 14:02) UNK promethazine HCl [From Phenergan] Adverse Reaction (Intermediate, Verified 10/06/17 14:02) unk morphine Adverse Reaction (Verified 05/16/20 23:47) hallucination Home Medications: NK [No Home Meds] 05/17/20 - Past Medical/Surgical History Diabetic: No -: HTN -: Osteoporosis -: [place] -: Atrial fibrillation status post ablation -: CAD -: Mitral Valve Prolapse -: Hyperlipidemia -: History of Tobacco use -: arthritis -: CVAx6 -: Iron-deficiency anemia -: cholecystectomy -: hysterectomy -: left hip surgery -: left arm surgery titanium -: cardiac catherization - stent placement X 1 -: back surgery, broken sternum -: endarterectomy -: ovarian tumor removal Psychosocial/ Personal History: , 4-Children, Retired. - Family History Sister -: Heart disease, Hypertension Notes: a.fib Mother -: Cancer, Blood disorders Notes: ovarian Father -: Lung disease, Cancer - Social History Alcohol use: No CD- Drugs: No Caffeine use: No Review of Systems Respiratory: Shortness of Breath Cardiovascular: Palpitations Physical Examination - Vital Signs Temperature: 98.2 F Blood Pressure: 117/72 Pulse: 154 Respirations: 20 Pulse Ox (%): 94 - Physical Exam General: Alert, In no apparent distress, Oriented x3 HEENT: Atraumatic Neck: Supple Respiratory: Crackles/rales (Crackles at the bases) Cardiovascular: No edema, Irregular heart rate/rhythm Gastrointestinal: Normal bowel sounds, Soft and benign Musculoskeletal: No clubbing, No swelling Integumentary: No rashes, No breakdown Neurological: Normal speech, Normal strength at 5/5 x4 extr - Studies Laboratory Data (last 24 hrs) 04/20/22 12:57: PT 14.3 H, INR 1.29 04/20/22 12:57: WBC 7.00, Hgb 9.6 L, Hct 31.4 L, Plt Count 184 04/20/22 12:57: Sodium 137, Potassium 3.2 L, BUN 15, Creatinine 1.02, Glucose 128 H, Magnesium 1.7 L, Total Bilirubin 0.7, AST 20, ALT 23, Alkaline Phosphatase 103 Assessment and Plan - Problems (Diagnosis) (1) Atrial fibrillation Current Visit: No Status: Acute Plan: Patient is 76 years of age admitted with uncontrolled A. fib since verapamil was just recently started patient is also on Plavix or anticoagulants. Due to bruising check a thyroid function test seen by Dr. Garcia started on amiodarone patient was given metoprolol and 1 dose of Cardizem in the emergency room also complaining of shortness of breath has bilateral pleural effusion presumed diastolic dysfunction Qualifiers: Atrial fibrillation type: persistent (not longstanding) Qualified Code(s): I48.19 - Other persistent atrial fibrillation; I48.1 - Persistent atrial fibrillation (2) Pneumonia Current Visit: Yes Status: Acute Plan: Possible patient has a right lower lobe infiltrate with bilateral interstitial changes (3) Diastolic heart failure Current Visit: Yes Status: Acute Plan: Complaining of shortness of breath on exertion trial of low-dose diuretics also has hypomagnesemia hypokalemia Qualifiers: Heart failure chronicity: acute on chronic Qualified Code(s): I50.33 - Acute on chronic diastolic (congestive) heart failure - Advance Directives Does patient have a Living Will: No Does patient have a Durable POA for Healthcare: No
[2022-04-20] MEDS ORDERED: AMIODARONE HCL 150 MG/3 ML INJ IV ONE ×2 (18:00→19:19)
[2022-04-20] MEDS ORDERED: AMIODARONE IN DEXTROSE,ISO-OSM 360 MG/200 ML BAG IV ONE (18:00)
[2022-04-20] MEDS ORDERED: FUROSEMIDE 20 MG/ 2ML VIAL ONE (18:39)
[2022-04-20 20:48] LABS: Bilirubin Total 0.6 mg/dL (0.2-1.0); Potassium 3.3 mmol/L (3.5-5.1); Protein, Total 6.6 g/dL (6.4-8.2)
[2022-04-20] MEDS: HYDROCODONE/APAP 5/325 MG TAB PO PRN (22:47)
[2022-04-20] MEDS ORDERED: POTASSIUM CL SA 10 MEQ TAB PO ONE (23:30)
[2022-04-21] MEDS ORDERED: AMIODARONE IN DEXTROSE,ISO-OSM 360 MG/200 ML BAG IV SCH
[2022-04-21] MEDS ORDERED: MAGNESIUM SULFATE 1 gm IVPB 1 GM/100 ML BAG IV ONE (01:00)
[2022-04-21] MEDS: HYDROCODONE/APAP 5/325 MG TAB PO PRN ×2 (04:00→16:39)
[2022-04-21 04:52] LABS: Absolute Lymphocytes (CBC) 1.4 K/uL (0.7-4.9); Hematocrit 25.3 % (36.0-45.0); Lymphocytes % 19.4 % (15.3-44.8); MCV 76.8 fL (80-100); MPV 10.8 fL (7.6-11.3)
[2022-04-21 05:19] LABS: Potassium 3.6 mmol/L (3.5-5.1); Thyroid Stimulating Hormone 0.542 uIU/mL (0.360-3.740)
[2022-04-21] MEDS: ENOXAPARIN 40 MG/0.4 ML SQ SCH (09:08)
[2022-04-21] MEDS: METOPROLOL TAR 50 MG TAB PO SCH ×2 (09:08→20:23)
[2022-04-21] MEDS: CEFTRIAXONE 1,000 MG in NA CHLORIDE 0.9% 50 ML IVPB SCH ×2 (09:08→20:23)
[2022-04-21] MEDS: AZITHROMYCIN IV 500 MG in NA CHLORIDE 0.9% 250 ML IVPB SCH (09:09)
--- NOTE | 2022-04-21 13:39 | P.PN ---
Subjective Date of Service: 04/21/22 Chief Complaint: Shortness of breath, A. fib, possible right lower lobe pneumonia Patient reports shortness of breath. She also report pleurisy. No reported fever. Physical Examination - Vital Signs Temperature: 99.5 F Blood Pressure: 110/68 Pulse: 144 Respirations: 18 Pulse Ox (%): 95 Assessment And Plan - Plan Physical Exam General: Alert, In no apparent distress, Oriented x3 Neck: Supple, no elevated JVD. Respiratory: [place] shaped chest, mild crackles at bilateral bases. Diminished breath sounds bilaterally. Cardiovascular: No edema, Irregular heart rate/rhythm Gastrointestinal: Normal bowel sounds, Soft and benign Integumentary: No rashes, No breakdown Neurological: Normal speech, Normal strength at 5/5 x4 extr. Diagnosis: Rapid atrial fibrillation Acute respiratory failure with hypoxia Pneumonia Interstitial lung disease. Microcytic anemia Plan: Continue IV antibiotic. Status post amiodarone drip. Cardiology input appreciated. Patient started on oral metoprolol. Titrate metoprolol. Chest physiotherapy Bronchodilators as needed Patient will likely need home oxygen. Perform home oxygen qualification.
--- NOTE | 2022-04-21 13:40 | CON ---
Date of Consultation: 04/21/[address] Dc on 04/20/2022. I saw the patient on 04/21/2022. Reason For Consultation: Atrial fibrillation. History Of Present Illness: Ms. Harden is 76. She is known to us from previous office visits. She has had atrial fibrillation. She has had an ablation before years ago. She has a history of COPD, CAD, hypertension, mitral valve prolapse. Came in with pneumonia and while she is here, she was note d to be in atrial fibrillation at rate of 154. Initially, amiodarone was ordered that was canceled. She was given diltiazem p.o. 1 dose and her heart rate went down to 90. Amiodarone was held. Today , she is still in atrial fibrillation between the rate of 109 to 130 without any symptoms from the at rial fibrillation itself, but again she was diagnosed with pneumonia. She is on Zithromax and Roceph in. She is also receiving Lasix, magnesium, potassium, and Lovenox. She is feeling better. Her kristine n complaint was shortness of breath. Past Medical History: As stated above. Allergies: SHE IS ALLERGIC TO PENICILLIN, MORPHINE, AND COMPAZINE. Review of Systems: Negative. Social History: Negative. Family History: Negative. Medications: At home include Lipitor, Plavix, and Zestril. Physical Examination: Vital Signs: Stable. She was afebrile. She is in atrial fibrillation at rate of 110. HEENT: Negative. Neck: Supple with no bruits. Chest: Revealed crackles in the right base. Cardiac: Revealed atrial fibrillation. No murmurs, gallops, or rubs. Abdomen: Benign. Extremities: Revealed no clubbing, cyanosis, or edema. Skin: Dry and intact. Pulses were present distally bilaterally. Neurologic: She was nonfocal. Diagnostic Data: Showed hemoglobin of 8.2. BNP is 7934. EKG showed atrial fibrillation. Chest x-r ay shows right lower lobe pneumonia. Impression And Plan: Atrial fibrillation, paroxysmal, status post previous ablation. Heart rate is still elevated. I will put her on metoprolol 50 b.i.d. for now, continue Lovenox, consider sotalol o r amiodarone down the road, but not at this point. Amiodarone will probably be risky because of her chronic obstructive pulmonary disease. At this point, now we cannot give her sotalol because she is taking Zithromax. I will be happy with rate control. When she goes home, she will have to be on ant icoagulation. Echocardiogram is pending. Start metoprolol 50 b.i.d. Her other issues are now inclu de pneumonia , chronic obstructive pulmonary disease stable, , CAD, hypertension, and mitral valve prolapse all of those are stable at this point. I will continue to follow. TOMÁS/MILY Voice ID: [id number] Report ID: [id number]
--- NOTE | 2022-04-21 16:12 | RAD REPORT ---
EXAM DESCRIPTION: Single view AP chest radiograph(s). CLINICAL HISTORY: S/p picc insertion. COMPARISON: None. TECHNIQUE: Single view AP chest radiograph(s). FINDINGS: Right PICC terminates in the distal SVC. Mild groundglass opacification in the right lower lung. Mild diffuse pulmonary interstitial thickening. No pleural effusion. No pneumothorax. Borderli ne cardiac size. Prominent mitral annulus calcifications. No significant osseous abnormality. IMPRESSION: 1. Well-positioned right PICC. 2. Mild diffuse pulmonary interstitial thickening. Right lower lung groundglass opacification. Electronically signed by: Karla Portillo MD 04/21/2022 12:54 AM CDT Due to temporary technical issues with the PACS/Fluency reporting system, reports are being signed by the in house radiologists without review as a courtesy to insure prompt reporting. The interpreting radiologist is fully responsible for the content of the report.
--- NOTE | 2022-04-21 20:25 | RAD REPORT ---
EXAM DESCRIPTION: CT - Head Brain Wo Cont - 04/21/2022 7:56 pm CLINICAL HISTORY: CVA COMPARISON: September 20242021 TECHNIQUE: Computed axial tomography of the head was obtained. IV contrast was not requested. All CT scans are performed using dose optimization technique as appropriate and may include automated exposure control or mA/KV adjustment according to patient size. FINDINGS: An intracranial bleed is not seen . The ventricles are normal in caliber. No extra-axial fluid collection is noted. Moderate low-density areas within periventricular, deep and subcortical white matter likely represent ischemic changes secondary to small vessel disease. Fluid within the sinuses/ mastoids is not seen. IMPRESSION: No acute intracranial abnormality is seen. If patient's symptoms persist MRI of the bra in would be recommended.
[2022-04-21] MEDS: MELATONIN 5 MG TABLET PO PRN (21:10)
[2022-04-22] MEDS: HYDROCODONE/APAP 5/325 MG TAB PO PRN (02:50)
[2022-04-22] MEDS ORDERED: DIGOXIN 0.25 MG/ML AMP IV ONE (02:56)
[2022-04-22] MEDS ORDERED: FENTANYL CITR 100 MCG/2 ML IV ONE (02:56)
[2022-04-22] MEDS ORDERED: DIGOXIN 0.25 MG/ML AMP ONE (03:09)
[2022-04-22 05:01] LABS: Absolute Lymphocytes (CBC) 0.8 K/uL (0.7-4.9); Hematocrit 24.6 % (36.0-45.0); Lymphocytes % 9.1 % (15.3-44.8); MCV 78.1 fL (80-100); MPV 10.6 fL (7.6-11.3); RBC Red Blood Cell Count 3.15 M/uL (3.86-4.86)
[2022-04-22 05:16] LABS: Magnesium 1.8 mg/dL (1.8-2.4); Phosphorus 1.9 mg/dL (2.5-4.9); Potassium 3.8 mmol/L (3.5-5.1)
--- NOTE | 2022-04-22 07:17 | ECHO ---
HEIGHT: 5 ft 2 in WEIGHT: 149 lb 8 oz DATE OF STUDY: 04/21/[address]: Won Rios MD 2-DIMENSIONAL: YES M.MODE: YES DOPPLER: YES COLOR FLOW: YES TDS: PORTABLE: YES DEFINITY: BUBBLE STUDY: DIAGNOSIS: RAPID ATRIAL FIBRILLATION CARDIAC HISTORY: CATHERIZATION: YES SURGERY: NO PROSTHETIC VALVE: NO PACEMAKER: NO MEASUREMENTS (cm) DIASTOLIC (NORMALS) SYSTOLIC (NORMALS) IVSd 0.9 (0.6-1.2) LA Diam 4.9 (1.9-4.0) LVEF 55-60% LVIDd 3.0 (3.5-5.7) LVIDs 1.8 (2.0-3.5) %FS 38% LVPWd 1.3 (0.6-1.2) Ao Diam 3.1 (2.0-3.7) 2 DIMENSIONAL ASSESSMENT: RIGHT ATRIUM: NORMAL LEFT ATRIUM: ENLARGED RIGHT VENTRICLE: NORMAL LEFT VENTRICLE: NORMAL TRICUSPID VALVE: MILD TRICUSPID REGURGITATION MITRAL VALVE: MITRAL ANNULAR CALCIFICATION WITH MODERATE AORTIC STENOSIS PULMONIC VALVE: NORMAL AORTIC VALVE: MILD MITRAL REGURGITATION PERICARDIAL EFFUSION: NONE AORTIC ROOT: NORMAL LEFT VENTRICULAR WALL MOTION: NORMAL DOPPLER/COLOR FLOW: SEE BELOW COMMENTS: NORMAL LEFT VENTRICULAR EJECTION FRACTION 55-60%. ATRIAL FIBRILLATION. MITRAL ANNULAR CALCIFICATION WITH MODERATE MITRAL STENOSIS AND MILD MITRAL REGURGITATION. SEVERE LEFT ATRIAL ENLARGEMENT. MILD AORTIC INSUFFICIENCY. RIGHT VENTRICULAR SYSTOLIC PRESSURE 55-60 mmHg. SEVERE DIASTOLIC DYSFUNCTION. TECHNOLOGIST: CANDE MANCERA
[2022-04-22] MEDS: DIGOXIN 0.25 MG TABLET PO SCH (08:47)
[2022-04-22] MEDS: ENOXAPARIN 40 MG/0.4 ML SQ SCH (08:47)
[2022-04-22] MEDS: METOPROLOL TAR 50 MG TAB PO SCH ×2 (08:47→20:32)
[2022-04-22] MEDS: AZITHROMYCIN IV 500 MG in NA CHLORIDE 0.9% 250 ML IVPB SCH (08:48)
[2022-04-22] MEDS: CEFTRIAXONE 1,000 MG in NA CHLORIDE 0.9% 50 ML IVPB SCH ×2 (08:48→20:33)
[2022-04-22] MEDS ORDERED: MAGNESIUM SULFATE 1 gm IVPB 1 GM/100 ML BAG IV ONE (09:00)
[2022-04-22] MEDS ORDERED: POTASSIUM PHOS IN 0.9 % NACL 15 MMOL/250 ML BAG IV ONE (09:00)
[2022-04-22] MEDS ORDERED: POTASSIUM PHOS 22 MEQ in NA CHLORIDE 0.9% 250 ML IV ONE (10:00)
[2022-04-22] MEDS: ACETAMINOPHEN 325 MG TABLET PO PRN (11:35)
--- NOTE | 2022-04-22 13:05 | P.PN ---
Subjective Date of Service: 04/22/22 Chief Complaint: Shortness of breath, A. fib, possible right lower lobe pneumonia Patient reports chest pain with deep breathing. She has intermittent rapid A. fib and she is currently requiring 3 L of oxygen by nasal cannula. r. Physical Examination - Vital Signs Temperature: 96.9 F Blood Pressure: 113/68 Pulse: 86 Respirations: 24 Pulse Ox (%): 98 Assessment And Plan - Plan Physical Exam General: Alert, In no apparent distress, Oriented x3 Neck: Supple, no elevated JVD. Respiratory: [place] shaped chest, mild crackles at bilateral bases. Diminished breath sounds bilaterally. Cardiovascular: No edema, Irregular heart rate/rhythm Gastrointestinal: Normal bowel sounds, Soft and benign Integumentary: No rashes, No breakdown Neurological: Normal speech, Normal strength at 5/5 x4 extr. Diagnosis: Rapid atrial fibrillation Acute respiratory failure with hypoxia Pneumonia Interstitial lung disease. Microcytic anemia Plan: Continue antibiotics. Status post amiodarone drip and transitioned to oral metoprolol Titrate metoprolol. Chest physiotherapy Bronchodilators as needed Patient will likely need home oxygen. Home oxygen qualification.
[2022-04-22] MEDS ORDERED: NA CHLORIDE 0.9% 250 ML IV SCH (14:00)
--- NOTE | 2022-04-22 15:58 | PN ---
Date of Progress Note: 04/22/2022 Subjective: Ms. 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 Today, she is s till on antibiotics. Objectively, she has no complaint. Objective: Vital Signs: She still in atrial fibrillation, rate of 86, otherwise her vital signs sta ble. She is afebrile. Chest: Clear. Cardiac: Revealed atrial fibrillation. Laboratory Data: Echocardiogram yesterday showed an ejection fraction of 60% with [id number] pulmonary hypertension, right ventricular systolic pressure of 55 mmHg. Impression And Plan: Chronic atrial fibrillation, rate controlled. Continue beta-blockers. Continu e Lovenox. She will need to be on Eliquis or Xarelto when she goes home. Her other problems include pneumonia, on antibiotics, coronary artery disease, hypertension, mitral valve prolapse, pulmonary h ypertension. She is on appropriate therapy. She can go home in the next day or 2. We will see her in the office soon. We will continue to follow. TOMÁS/MILY Voice ID: [id number] Report ID: [id number]
[2022-04-22] MEDS: MELATONIN 5 MG TABLET PO PRN (20:31)
[2022-04-23 04:42] LABS: Absolute Lymphocytes (CBC) 0.9 K/uL (0.7-4.9); Hematocrit 28.7 % (36.0-45.0); Lymphocytes % 12.2 % (15.3-44.8); MCV 78.7 fL (80-100); MPV 11.2 fL (7.6-11.3); RBC Red Blood Cell Count 3.64 M/uL (3.86-4.86)
[2022-04-23 05:00] LABS: Potassium 3.7 mmol/L (3.5-5.1)
[2022-04-23] MEDS: HYDROCODONE/APAP 5/325 MG TAB PO PRN (05:22)
[2022-04-23] MEDS ORDERED: KCL 20 MEQ/100 mL IVPB 20 MEQ/100 ML BAG IV SCH (06:00)
--- NOTE | 2022-04-23 06:41 | EKG ---
Test Date: 2022-04-20 Test Time: 12:43:18 Group Account Director: YONI MEASUREMENT RESULTS: Intervals: Rate: 171 CA: QRSD: 84 QT: 278 QTc: 468 [place]: P: CA: QRS: -77 T: 107 INTERPRETIVE STATEMENTS: Atrial fibrillation with rapid ventricular response Left axis deviation Possible Anterior infarct, age undetermined Abnormal ECG Compared to ECG 09/07/2021 14:34:38 Sinus rhythm no longer present Myocardial infarct finding still present Electronically Signed On 04-23-22 06:32:38 CDT by Ben Munroe
[2022-04-23] MEDS: ENOXAPARIN 40 MG/0.4 ML SQ SCH (08:21)
[2022-04-23] MEDS: DIGOXIN 0.25 MG TABLET PO SCH (08:21)
[2022-04-23] MEDS: METOPROLOL TAR 50 MG TAB PO SCH ×2 (08:22→20:31)
[2022-04-23] MEDS: AZITHROMYCIN IV 500 MG in NA CHLORIDE 0.9% 250 ML IVPB SCH (08:24)
[2022-04-23] MEDS: CEFTRIAXONE 1,000 MG in NA CHLORIDE 0.9% 50 ML IVPB SCH ×2 (08:24→20:32)
[2022-04-23] MEDS: ACETAMINOPHEN 325 MG TABLET PO PRN (15:27)
[2022-04-23] MEDS: MELATONIN 5 MG TABLET PO PRN (20:31)
--- NOTE | 2022-04-23 21:19 | PN ---
Date of Progress Note: 04/23/2022 Ms. Harden came in with the pneumonia, atrial fibrillation. Has a history of coronary artery diseas e, mitral valve prolapse, hypertension, normal echocardiogram, pulmonary hypertension. She is in atr ial fibrillation but her rate is controlled on her present regimen including beta-blockers and Xarelt o. Her pneumonia is improving. She is still on antibiotics. I agree with her present regimen. I w ill sign off her case. We will see her in the office in the near future. No change in medical thera py at this point. TOMÁS/MILY Voice ID: [id number] Report ID: [id number]
[2022-04-24 05:16] LABS: Absolute Lymphocytes (CBC) 0.9 K/uL (0.7-4.9); Hematocrit 28.7 % (36.0-45.0); Lymphocytes % 13.5 % (15.3-44.8); MCV 77.3 fL (80-100); MPV 10.6 fL (7.6-11.3); RBC Red Blood Cell Count 3.71 M/uL (3.86-4.86)
[2022-04-24] MEDS: ACETAMINOPHEN 325 MG TABLET PO PRN (05:22)
[2022-04-24 05:34] LABS: Magnesium 1.9 mg/dL (1.8-2.4); Phosphorus 1.7 mg/dL (2.5-4.9)
[2022-04-24] MEDS: POTASS/SODIUM PHOSPHATE 1 PKT POWD.PACK PO SCH ×3 (06:42→09:14)
[2022-04-24] MEDS: CEFTRIAXONE 1,000 MG in NA CHLORIDE 0.9% 50 ML IVPB SCH ×2 (09:00→21:25)
[2022-04-24] MEDS: METOPROLOL TAR 50 MG TAB PO SCH ×2 (09:01→21:25)
[2022-04-24] MEDS: AZITHROMYCIN IV 500 MG in NA CHLORIDE 0.9% 250 ML IVPB SCH (09:01)
[2022-04-24] MEDS: DIGOXIN 0.25 MG TABLET PO SCH (09:02)
[2022-04-24] MEDS: ENOXAPARIN 40 MG/0.4 ML SQ SCH (09:02)
[2022-04-24] MEDS: HYDROCODONE/APAP 5/325 MG TAB PO PRN (09:41)
--- NOTE | 2022-04-24 18:48 | P.PN ---
Subjective Date of Service: 04/24/22 Chief Complaint: Shortness of breath, A. fib, possible right lower lobe pneumonia Patient states she feels much better and wants to go home. Heart rate controlled in the 80s. r. Physical Examination - Vital Signs Temperature: 97.2 F Blood Pressure: 110/78 Pulse: 85 Respirations: 20 Pulse Ox (%): 97 Assessment And Plan - Plan Physical Exam General: Alert, In no apparent distress, Oriented x3 Neck: Supple, no elevated JVD. Respiratory: [place] shaped chest, mild crackles at bilateral bases. Diminished breath sounds bilaterally. Cardiovascular: No edema, Irregular heart rate/rhythm Gastrointestinal: Normal bowel sounds, Soft and benign Integumentary: No rashes, No breakdown Neurological: Normal speech, Normal strength at 5/5 x4 extr. Diagnosis: Rapid atrial fibrillation Acute on chronic respiratory failure with hypoxia Pneumonia Interstitial lung disease. Microcytic anemia Plan: Continue antibiotics. Status post amiodarone drip and transitioned to oral metoprolol Heart rate currently controlled on metoprolol and digoxin. Cardiology saw patient and managed the atrial fibrillation. Patient uses home oxygen, 3 L by nasal cannula at baseline. Chest physiotherapy Bronchodilators as needed Patient need moderate assistance with transfers. She declined to go to rehab and wants to go home. She states she has good support at home. Disposition: Home with home health.
--- NOTE | 2022-04-24 18:57 | P.DS ---
Admission Date: 04/20/22 Discharge Date: 04/28/22 Disposition: TRANSFER TO [facility] Discharge Condition: FAIR Reason for Admission: Shortness of breath, A. fib, possible right lower lobe pneumonia Brief History of Present Illness: Patient is 76 years of age with a history of coronary artery disease stroke or atrial fibrillation was admitted rapid atrial fibrillation. Her blood pressure had been very variable for the past week. Apparently she was taking verapamil at home which she was was told to stop. She denied any fever chills cough sputum and was complaining of chronic dyspnea on exertion. Patient admitted for further management of atrial fibrillation with RVR. Hospital Course: Diagnosis: Rapid atrial fibrillation Acute on chronic respiratory failure with hypoxia Pneumonia Interstitial lung disease. Microcytic anemia Acute on chronic diastolic heart failure Patient admitted to the intensive care unit on amiodarone drip for rapid atrial fibrillation. She was seen in consultation by cardiology. Her heart rate improved on the amiodarone drip and she was transitioned to oral metoprolol. Digoxin was later added. The combination of metoprolol and digoxin kept her heart rate mostly in the 80s. CTA thorax was negative for pulmonary embolism. It did demonstrate possible pneumonia superimposed on chronic interstitial changes. She was treated with antibiotics for pneumonia. Patient uses home oxygen, 3 L by nasal cannula at baseline. She was maintained on 3 L oxygen by nasal cannula during the hospital stay Chest physiotherapy Also treated with bronchodilators as needed. Patient was deconditioned. She was seen by physical therapy and currently transfers with contact-guard assist. She was able to ambulate only 20 feet due to fatigue. She declined to go to rehab and wanted to go home, nowhere else. She stated she has good support at home who can help with her transfers and ambulation. She also has a walker and a wheelchair if she has to use it. She is discharged to home per her request. Vital Signs/Physical Exam: Temp Pulse Resp BP Pulse Ox 97.2 F 85 20 110/78 97 04/24/22 18:48 04/24/22 18:48 04/24/22 18:48 04/24/22 18:48 04/24/22 18:48 General: Alert, In no apparent distress, Oriented x3 Neck: JVD not distended Respiratory: Clear to auscultation bilaterally, Diminished Cardiovascular: Normal S1 S2, Irregular heart rate/rhythm Gastrointestinal: Soft and benign, Non-distended Musculoskeletal: No swelling Integumentary: No cyanosis Neurological: Normal strength at 5/5 x4 extr Laboratory Data at Discharge: WBC 6.70 K/uL (4.3-10.9) 04/24/22 04:40 Hgb 9.4 g/dL (12.0-15.0) L 04/24/22 04:40 Hct 28.7 % (36.0-45.0) L 04/24/22 04:40 Plt Count 154 K/uL (152-406) 04/24/22 04:40 PT 14.3 SECONDS (9.5-12.5) H 04/20/22 12:57 INR 1.29 04/20/22 12:57 Sodium 137 mmol/L (136-145) 04/24/22 04:40 Potassium 4.0 mmol/L (3.5-5.1) 04/24/22 04:40 BUN 14 mg/dL (7-18) 04/24/22 04:40 Creatinine 0.74 mg/dL (0.55-1.3) 04/24/22 04:40 Glucose 86 mg/dL (74-106) 04/24/22 04:40 Phosphorus 1.7 mg/dL (2.5-4.9) L 04/24/22 04:40 Magnesium 1.9 mg/dL (1.8-2.4) 04/24/22 04:40 Total Bilirubin 0.6 mg/dL (0.2-1.0) 04/20/22 20:06 AST 37 U/L (15-37) 04/20/22 20:06 ALT 29 U/L (12-78) 04/20/22 20:06 Alkaline Phosphatase 113 U/L (45-117) 04/20/22 20:06 Home Medications: Atorvastatin Calcium [Lipitor] 80 mg PO BEDTIME 04/20/22 Digoxin [Lanoxin*] 0.25 mg PO DAILY #30 tab 04/24/22 Hydrocodone 5/APAP 325 [[place] 5/325*] 1 tab PO Q6H PRN #15 tab 04/24/22 levoFLOXacin [Levaquin] 750 mg PO DAILY #5 tab 04/25/22 Docusate [Colace Cap*] 100 mg PO BID cap 04/28/22 Furosemide [Lasix] 40 mg PO DAILY #7 tab 04/28/22 Levalbuterol [Xopenex*] 1.25 mg NEB [id number] vial 04/28/22 Metoprolol Tartrate [Lopressor*] 100 mg PO BID tab 04/28/22 Polyethyl Gly 3350 [Glycolax*] 17 gm PO BID PRN udbot 04/28/22 Trazodone [Desyrel*] 50 mg PO BEDTIME PRN PRN 04/28/22 New Medications: Digoxin [Lanoxin*] 0.25 mg PO DAILY #30 tab Furosemide [Lasix] 40 mg PO DAILY #7 tab levoFLOXacin [Levaquin] 750 mg PO DAILY #5 tab Hydrocodone 5/APAP 325 [[place] 5/325*] 1 tab PO Q6H PRN #15 tab PRN Reason: Pain Scale 5-7 (Moderate) Physician Discharge Instructions: PROBLEM: Pneumonia GOAL: Clear understanding of disease process INSTRUCTIONS: Diet: AHA Activity: Fall precautions DME DME: Date Ordered: Name of Company: [employer] Services Needed: Home Health Name of Company: Date or Referral: IMMUNIZATION Influenza Vaccine Indicated: Influenza Vaccine Given: Date Given: Pneumonia Vaccine Indicated: No Pneumonia Vaccine Given: Date Given: Diet: AHA Activity: Fall precautions Followup: Ben Munroe MD [ACTIVE - CAN ADMIT] - 1-2 Weeks Kasey Pinto DO [Primary Care Provider] - 1 Week Time spent managing pt's care (in minutes): 37
[2022-04-25] MEDS: HYDROCODONE/APAP 5/325 MG TAB PO PRN ×2 (01:35→09:58)
[2022-04-25] MEDS: CEFTRIAXONE 1,000 MG in NA CHLORIDE 0.9% 50 ML IVPB SCH ×2 (07:48→20:14)
[2022-04-25] MEDS: DIGOXIN 0.25 MG TABLET PO SCH (07:48)
[2022-04-25] MEDS: ENOXAPARIN 40 MG/0.4 ML SQ SCH (07:48)
[2022-04-25] MEDS: METOPROLOL TAR 50 MG TAB PO SCH ×2 (07:48→20:15)
--- NOTE | 2022-04-25 15:12 | P.PN ---
Subjective Date of Service: 04/25/22 Chief Complaint: Shortness of breath, A. fib, possible right lower lobe pneumonia Patient appears confused Heart rate controlled in the 80s. Blood pressure has been stable. Physical Examination - Vital Signs Temperature: 97.7 F Blood Pressure: 119/73 Pulse: 88 Respirations: 19 Pulse Ox (%): 96 Assessment And Plan - Plan Physical Exam General: Alert, In no apparent distress, Oriented x3 Neck: Supple, no elevated JVD. Respiratory: [place] shaped chest, mild crackles at bilateral bases. Diminished breath sounds bilaterally. Cardiovascular: No edema, Irregular heart rate/rhythm Gastrointestinal: Normal bowel sounds, Soft and benign Integumentary: No rashes, No breakdown Neurological: Normal speech, Normal strength at 5/5 x4 extr. Diagnosis: Rapid atrial fibrillation Acute on chronic respiratory failure with hypoxia Pneumonia Interstitial lung disease. Microcytic anemia Plan: Continue antibiotics. Patient to complete 7 to 10 days of treatment. Status post amiodarone drip and transitioned to oral metoprolol Heart rate currently controlled on metoprolol and digoxin. Cardiology saw patient and managed the atrial fibrillation. Patient uses home oxygen, 3 L by nasal cannula at baseline. Obtain arterial blood gas given mild confusion to rule out CO2 retention. Bronchodilators as needed Patient need moderate assistance with transfers. She has now agreed to go to skilled rehab. Continue PT. Disposition: Home with home health.
[2022-04-25 16:16] LABS: Arterial Blood Carboxyhemoglob 1.6 % (0-1.5); Blood Gas Oxyhemoglobin 91.3 % (94-97); Blood O2 Saturation 93.7 % (92-98.5)
[2022-04-25] MEDS: MELATONIN 5 MG TABLET PO PRN (20:20)
[2022-04-25 20:44] LABS: Specific Gravity 1.023 (1.005-1.030); Urine Bilirubin NEGATIVE (Negative); Urine Blood Negative (Negative); Urine Clarity Clear (Clear); Urine Color Yellow (Yellow); Urine Glucose NEGATIVE (Negative); Urine Mucus Slight /HPF (None Seen); Urine Protein TRACE (Negative); Urine Urobilinogen 1+ (Normal); Urine pH 5.5 (5.0-7.0)
[2022-04-25] MEDS: TRAZODONE 50 MG TABLET PO PRN (21:40)
[2022-04-26 05:30] LABS: Absolute Lymphocytes (CBC) 0.7 K/uL (0.7-4.9); Hematocrit 30.4 % (36.0-45.0); Lymphocytes % 12.1 % (15.3-44.8); MCV 78.6 fL (80-100); RBC Red Blood Cell Count 3.87 M/uL (3.86-4.86)
[2022-04-26 05:38] LABS: Albumin 2.4 g/dL (3.4-5.0); Bilirubin Total 0.5 mg/dL (0.2-1.0); Potassium 4.2 mmol/L (3.5-5.1); Protein, Total 6.4 g/dL (6.4-8.2)
[2022-04-26 06:11] LABS: Anisocytosis 1+; Blood Morphology Comment NOTED (NOT SEEN); Platelet Estimate ADEQ; White Blood Cell Scan OK (OK)
[2022-04-26] MEDS: LEVALBUTEROL 1.25 MG/3 ML NEB NEB SCH ×3 (08:23→19:15)
[2022-04-26] MEDS ORDERED: LEVALBUTEROL 1.25 MG/3 ML NEB ONE (08:34)
[2022-04-26] MEDS: METOPROLOL TAR 50 MG TAB PO SCH ×2 (08:45→20:29)
[2022-04-26] MEDS: ENOXAPARIN 40 MG/0.4 ML SQ SCH (08:45)
[2022-04-26] MEDS: DIGOXIN 0.25 MG TABLET PO SCH (08:45)
[2022-04-26] MEDS: CEFTRIAXONE 1,000 MG in NA CHLORIDE 0.9% 50 ML IVPB SCH ×2 (08:46→20:29)
[2022-04-26] MEDS ORDERED: NA CHLORIDE 0.9% 50 ML ONE (08:58)
[2022-04-26] MEDS ORDERED: METOPROLOL TAR 50 MG TAB PO ONE (09:15)
--- NOTE | 2022-04-26 10:41 | RAD REPORT ---
EXAM DESCRIPTION: RAD - Chest Single View - 04/26/2022 10:20 am CLINICAL HISTORY: Respiratory failure Chest pain. COMPARISON: Chest Single View dated 04/21/2022; Chest Single View dated 04/20/2022; Chest Single View dated 05/16/2020; Chest Single View dated 02/08/2019 FINDINGS: Portable technique limits examination quality. Moderate worsening of the right lung base aeration since comparative study, likely related to pleural effusion. The heart is mildly enlarged in size. Stable position right PICC line.
--- NOTE | 2022-04-26 13:10 | P.PN ---
Subjective Date of Service: 04/26/22 Chief Complaint: Shortness of breath, A. fib, possible right lower lobe pneumonia Patient appears to be more short of breath today. Heart rate rapid. Her confusion is better today. No fever. Blood pressure has been stable. Physical Examination - Vital Signs Temperature: 96.9 F Blood Pressure: 120/75 Pulse: 111 Respirations: 22 Pulse Ox (%): 93 Assessment And Plan - Plan Physical Exam General: Alert, mild respiratory distress, oriented x 2 Neck: Supple, no elevated JVD. Respiratory: [place] shaped chest, mild crackles at bilateral bases. Diminished breath sounds bilaterally. Cardiovascular: No edema, Irregular heart rate/rhythm Gastrointestinal: Normal bowel sounds, Soft and benign Integumentary: No rashes, No breakdown Neurological: Normal speech, Normal strength at 5/5 x4 extr. Diagnosis: Rapid atrial fibrillation Acute on chronic respiratory failure with hypoxia Pneumonia Interstitial lung disease. Microcytic anemia Pleural effusion. Acute diastolic heart failure Plan: Dr. Grier titrated her metoprolol to 100 mg twice daily Status post amiodarone drip. Continue digoxin Continue antibiotics. Cardiology following. Lasix for pleural effusion and acute diastolic heart failure. UA negative for UTI. Patient is on antibiotics for pneumonia. Continue current antibiotic. Patient uses home oxygen, 3 L by nasal cannula at baseline. ABG shows no significant CO2 retention. Bronchodilators as needed Patient need moderate assistance with transfers. She has now agreed to go to skilled rehab. Continue PT. Disposition: Skilled rehab.
[2022-04-26] MEDS ORDERED: FUROSEMIDE 40 MG/4 ML VIAL IV ONE (16:40)
[2022-04-26] MEDS ORDERED: FUROSEMIDE 40 MG/4 ML VIAL ONE (17:06)
[2022-04-26] MEDS: TRAZODONE 50 MG TABLET PO PRN (20:29)
[2022-04-26] MEDS ORDERED: NA CHLORIDE 0.9% 0 ML ONE (20:38)
[2022-04-27] MEDS: LEVALBUTEROL 1.25 MG/3 ML NEB NEB SCH ×4 (01:40→20:10)
[2022-04-27 05:08] LABS: Absolute Lymphocytes (CBC) 1.3 K/uL (0.7-4.9); Hematocrit 32.2 % (36.0-45.0); Lymphocytes % 21.1 % (15.3-44.8); MCV 78.7 fL (80-100); MPV 10.1 fL (7.6-11.3); RBC Red Blood Cell Count 4.09 M/uL (3.86-4.86)
[2022-04-27 05:29] LABS: Albumin 2.3 g/dL (3.4-5.0); Bilirubin Total 0.5 mg/dL (0.2-1.0); Potassium 3.8 mmol/L (3.5-5.1); Protein, Total 6.3 g/dL (6.4-8.2)
[2022-04-27 05:35] LABS: Magnesium 1.9 mg/dL (1.8-2.4); Phosphorus 2.2 mg/dL (2.5-4.9)
[2022-04-27 05:52] VITALS: BMI 25.7
[2022-04-27] MEDS ORDERED: KCL 20 MEQ/100 mL IVPB 20 MEQ/100 ML BAG IV SCH (06:00)
[2022-04-27] MEDS ORDERED: KCL 20 MEQ/100 mL IVPB 100 ML IV ONE (06:50)
[2022-04-27] MEDS ORDERED: POTASS/SODIUM PHOSPHATE 1 PKT POWD.PACK PO ONE (08:00)
[2022-04-27] MEDS: ENOXAPARIN 40 MG/0.4 ML SQ SCH (09:31)
[2022-04-27] MEDS: CEFTRIAXONE 1,000 MG in NA CHLORIDE 0.9% 50 ML IVPB SCH (09:32)
[2022-04-27] MEDS: METOPROLOL TAR 50 MG TAB PO SCH ×2 (09:33→20:25)
[2022-04-27] MEDS: DIGOXIN 0.25 MG TABLET PO SCH (09:34)
[2022-04-27] MEDS ORDERED: POTASS/SODIUM PHOSPHATE 1 PKT POWD.PACK ONE (09:42)
--- NOTE | 2022-04-27 11:49 | P.PN ---
Subjective Date of Service: 04/27/22 Chief Complaint: Shortness of breath, A. fib, possible right lower lobe pneumonia Patient is complaining of constipation. No bowel movement for several days Heart rate is better. Her confusion has resolved. Blood pressure has been stable. Physical Examination - Vital Signs Temperature: 97.3 F Blood Pressure: 120/75 Pulse: 106 Respirations: 23 Pulse Ox (%): 94 Assessment And Plan - Plan Physical Exam General: Alert, mild respiratory distress, oriented x 2 Neck: Supple, no elevated JVD. Respiratory: [place] shaped chest, mild crackles at bilateral bases. Diminished breath sounds bilaterally. Cardiovascular: No edema, Irregular heart rate/rhythm Gastrointestinal: Normal bowel sounds, Soft and benign Integumentary: No rashes, No breakdown Neurological: Normal speech, Normal strength at 5/5 x4 extr. Diagnosis: Rapid atrial fibrillation Acute on chronic respiratory failure with hypoxia Pneumonia Interstitial lung disease. Microcytic anemia Pleural effusion. Acute diastolic heart failure Functional constipation Plan: Continue metoprolol to 100 mg twice daily and digoxin Status post amiodarone drip. Continue digoxin Cardiology following. Lasix for pleural effusion and acute diastolic heart failure. UA negative for UTI. Patient is on antibiotics for pneumonia. Patient uses home oxygen, 3 L by nasal cannula at baseline. ABG shows no significant CO2 retention. Bronchodilators as needed Patient need moderate assistance with transfers. She stated today she wants to go home and nowhere else on discharge. PT to reevaluate tomorrow. Disposition: Pending PT reevaluation.
[2022-04-27] MEDS: POLYETHYL GLY 3350 17 GM/DOSE PO SCH ×2 (12:30→20:25)
[2022-04-27] MEDS: DOCUSATE NA 100 MG CAP PO SCH (20:25)
[2022-04-27] MEDS: TRAZODONE 50 MG TABLET PO PRN (22:50)
[2022-04-28] MEDS: LEVALBUTEROL 1.25 MG/3 ML NEB NEB SCH ×4 (01:55→19:10)
[2022-04-28] MEDS: DOCUSATE NA 100 MG CAP PO SCH ×2 (08:27→21:00)
[2022-04-28] MEDS: METOPROLOL TAR 50 MG TAB PO SCH ×2 (08:27→21:08)
[2022-04-28] MEDS: POLYETHYL GLY 3350 17 GM/DOSE PO SCH ×2 (08:27→21:00)
[2022-04-28] MEDS: ENOXAPARIN 40 MG/0.4 ML SQ SCH (08:27)
[2022-04-28] MEDS: DIGOXIN 0.25 MG TABLET PO SCH ×2 (09:00→10:06)
--- NOTE | 2022-04-28 17:44 | P.PN ---
Subjective Date of Service: 04/28/22 Chief Complaint: Shortness of breath, A. fib, possible right lower lobe pneumonia Patient has no new complaint. She states she feels better today. Heart rate is controlled. She is not confused. She is stable on her baseline oxygen by nasal cannula. Physical Examination - Vital Signs Temperature: 97.1 F Blood Pressure: 116/63 Pulse: 105 Respirations: 18 Pulse Ox (%): 92 Assessment And Plan - Plan Physical Exam General: Alert, NAD, oriented x 3 Neck: Supple, no elevated JVD. Respiratory: mild crackles at bilateral bases. Diminished breath sounds bilaterally. Cardiovascular: No edema, Irregular heart rate/rhythm Gastrointestinal: Normal bowel sounds, Soft and benign Integumentary: No rashes. Neurological: No focal motor deficit. Diagnosis: Rapid atrial fibrillation Acute on chronic respiratory failure with hypoxia Pneumonia Interstitial lung disease. Microcytic anemia Pleural effusion. Acute diastolic heart failure Functional constipation Plan: Continue metoprolol to 100 mg twice daily and digoxin Status post amiodarone drip. Cardiology saw patient. Lasix for pleural effusion and acute diastolic heart failure. UA negative for UTI. Patient uses home oxygen, 3 L by nasal cannula at baseline. ABG shows no significant CO2 retention. Bronchodilators as needed Patient need moderate assistance with transfers. Possible discharge to [facility] for skilled rehab tomorrow.
[2022-04-28] MEDS: TRAZODONE 50 MG TABLET PO PRN (21:11)
[2022-04-29] MEDS: LEVALBUTEROL 1.25 MG/3 ML NEB NEB SCH ×3 (00:25→14:00)
[2022-04-29] MEDS: POLYETHYL GLY 3350 17 GM/DOSE PO SCH (09:00)
[2022-04-29] MEDS: DOCUSATE NA 100 MG CAP PO SCH (09:00)
[2022-04-29] MEDS: ENOXAPARIN 40 MG/0.4 ML SQ SCH (09:03)
[2022-04-29] MEDS: DIGOXIN 0.25 MG TABLET PO SCH (09:03)
[2022-04-29] MEDS: METOPROLOL TAR 50 MG TAB PO SCH (09:06)
[2022-04-29] MEDS ORDERED: LIDOCAINE 4% PATCH TOP SCH (09:15)
[2022-04-29 10:57] VITALS: O2SAT 92
--- NOTE | 2022-04-29 11:59 | RAD REPORT ---
EXAM DESCRIPTION: RAD - Chest Single View - 04/29/2022 11:39 am CLINICAL HISTORY: f/u opacities COMPARISON: Chest Single View dated 04/26/2022; Chest Single View dated 04/21/2022; Chest Single View dated 04/20/2022; Chest Single View dated 05/16/2020; Chest For Pe Angio dated 04/20/2022 FINDINGS: Lines: PICC with tip overlying the proximal SVC. Lungs: Airspace disease at the right lung base with background of coarsened interstitium. Pleural: Small pleural effusions again noted. Cardiac: Similar cardiomegaly. Mediastinum: Within normal limits. Bones: No acute fractures. Left shoulder arthroplasty. Other: None IMPRESSION: Similar aeration lungs compared with 04/26/2022 with small effusions and right basilar a irspace disease that may reflect pneumonia.
[2022-04-29 16:39] VITALS: BP 126/76; TEMP 97.9
--- NOTE | 2022-04-29 21:05 | P.DS ---
Admission Date: 04/20/22 Discharge Date: 04/29/22 Disposition: [facility]SFER TO [facility] Discharge Condition: FAIR Reason for Admission: Shortness of breath, A. fib, possible right lower lobe pneumonia Consultations: Cardiology - Dr. Munroe Brief History of Present Illness: 76yo F, PMH: CAD, CVA, Afib Presented to ED due to dyspnea on exertion, elevated blood pressure and afib with RVR. Hospital Course: Patient admitted to the ICU on amiodarone drip for rapid atrial fibrillation. Her heart rate improved on the amiodarone and was transitioned to oral metoprolol with Digoxin per Cardiology recommendations - Dr. Munroe. Her heart rate remained mostly in the 80s, with few brief episodes to 110. CTA Chest was negative for PE, but did demonstrate possible pneumonia superimp osed on chronic interstitial lung changes vs CHF. Completed a week of antibiotics and remained afebrile. Noted to have bilateral pleural effusions with right greater than left. She remained on 3-4 L nasal cannula which is near her baseline of 3L nasal cannula at home. Her course was complicated with right posterior chest pain / tenderness. Some component of pleurisy and muscular tenderness. This limited her ability to ambulate due to pain, and patient became more debilitated. She was seen by PT and has been working on transfers and ambulating short distances. Discharged to SNF for ongoing physical therapy / rehab prior to going home. Follow up with Cardiology in ~[address] Munroe recommended initiation of anticoagulation. Xarelto sent on discharge. Echocardiogram revealed severe dilated left atrium and severe diastolc dysfunction. Patient treated with Lasix and to continue with diuretic, monitor blood pressure and renal function. Vital Signs/Physical Exam: Temp Pulse Resp BP Pulse Ox 97.9 F 65 14 126/76 94 04/29/22 16:00 04/29/22 16:00 04/29/22 16:00 04/29/22 16:00 04/29/22 16:00 General: Alert, Oriented x3 HEENT: EOMI, Abnormal EOM, Sclerae nonicteric Respiratory: Clear to auscultation bilaterally, Diminished Cardiovascular: No edema, Irregular heart rate/rhythm Gastrointestinal: Soft and benign, Non-distended, No tenderness Musculoskeletal: No contractures, No tenderness Laboratory Data at Discharge: WBC 6.00 K/uL (4.3-10.9) 04/27/22 04:30 Hgb 10.1 g/dL (12.0-15.0) L 04/27/22 04:30 Hct 32.2 % (36.0-45.0) L 04/27/22 04:30 Plt Count 196 K/uL (152-406) 04/27/22 04:30 PT 14.3 SECONDS (9.5-12.5) H 04/20/22 12:57 INR 1.29 04/20/22 12:57 Sodium 137 mmol/L (136-145) 04/27/22 04:30 Potassium 3.8 mmol/L (3.5-5.1) 04/27/22 04:30 BUN 14 mg/dL (7-18) 04/27/22 04:30 Creatinine 0.71 mg/dL (0.55-1.3) 04/27/22 04:30 Glucose 95 mg/dL (74-106) 04/27/22 04:30 Phosphorus 2.2 mg/dL (2.5-4.9) L 04/27/22 04:40 Magnesium 1.9 mg/dL (1.8-2.4) 04/27/22 04:40 Total Bilirubin 0.5 mg/dL (0.2-1.0) 04/27/22 04:30 AST 23 U/L (15-37) 04/27/22 04:30 ALT 31 U/L (12-78) 04/27/22 04:30 Alkaline Phosphatase 105 U/L (45-117) 04/27/22 04:30 Home Medications: Atorvastatin Calcium [Lipitor] 80 mg PO BEDTIME 04/20/22 Digoxin [Lanoxin*] 0.25 mg PO DAILY #30 tab 04/24/22 Hydrocodone 5/APAP 325 [[place] 5/325*] 1 tab PO Q6H PRN #15 tab 04/24/22 Docusate [Colace Cap*] 100 mg PO BID cap 04/28/22 Furosemide [Lasix] 40 mg PO DAILY #7 tab 04/28/22 Levalbuterol [Xopenex*] 1.25 mg NEB [id number] vial 04/28/22 Metoprolol Tartrate [Lopressor*] 100 mg PO BID tab 09/26/22 Polyethyl Gly 3350 [Glycolax*] 17 gm PO BID PRN udbot 04/28/22 Trazodone [Desyrel*] 50 mg PO BEDTIME PRN PRN 04/28/22 Rivaroxaban [Xarelto] 20 mg PO DAILY AT SUPPER 30 Days #30 tab 04/29/22 New Medications: Digoxin [Lanoxin*] 0.25 mg PO DAILY #30 tab Furosemide [Lasix] 40 mg PO DAILY #7 tab Hydrocodone 5/APAP 325 [[place] 5/325*] 1 tab PO Q6H PRN #15 tab PRN Reason: Pain Scale 5-7 (Moderate) Rivaroxaban [Xarelto] 20 mg PO DAILY AT SUPPER 30 Days #30 tab Physician Discharge Instructions: Patient admitted to the ICU on amiodarone drip for rapid atrial fibrillation. Her heart rate improved on the amiodarone and was transitioned to oral metoprolol with Digoxin per Cardiology recommendations - Dr. Munroe. Her heart rate remained mostly in the 80s, with few brief episodes to 110. CTA Chest was negative for PE, but did demonstrate possible pneumonia superimposed on chronic interstitial lung changes vs CHF. Completed a week of antibiotics and remained afebrile. Noted to have bilateral pleural effusions with right greater than left. She remained on 3-4 L nasal cannula which is near her baseline of 3L nasal cannula at home. Her course was complicated with right posterior chest pain / tenderness. Some component of pleurisy and muscular tenderness. This limited her ability to ambulate due to pain, and patient became more debilitated. She was seen by PT and has been working on transfers and ambulating short distances. Discharged to SNF for ongoing physical therapy / rehab prior to going home. Follow up with Cardiology in ~[address] Munroe recommended initiation of anticoagulation. Xarelto sent on discharge. Echocardiogram revealed severe dilated left atrium and severe diastolc dysfunction. Patient treated with Lasix and to continue with diuretic, monitor blood pressure and renal function. Diet: AHA Activity: Fall precautions Followup: Ben Munroe MD [ACTIVE - CAN ADMIT] - 1-2 Weeks (heading and priming tool setter- call to schedule an appointment) Kasey Pinto DO [Primary Care Provider] - 1 Week (PCP- call to schedule an appointment) Time spent managing pt's care (in minutes): 45
== END 2022-04-29 18:12 | DRG 193 ==
LOC: ER 12:22 → ERHOLD 16:59 → 3RD-ICU 20:33 → 4TH 04-27 12:16
PROVIDERS: ADMIT Internal Medicine Sleep Medicine; ATTEND Hospitalist
DX: J18.9 Pneumonia, unspecified organism (principal); I50.33 Acute on chronic diastolic (congestive) heart failure; J96.21 Acute and chronic respiratory failure with hypoxia; I48.19 Other persistent atrial fibrillation; J84.9 Interstitial pulmonary disease, unspecified; I11.0 Hypertensive heart disease with heart failure; I34.1 Nonrheumatic mitral (valve) prolapse; K59.04 Chronic idiopathic constipation; D50.9 Iron deficiency anemia, unspecified; I27.20 Pulmonary hypertension, unspecified; E83.42 Hypomagnesemia; R41.0 Disorientation, unspecified; R09.1 Pleurisy; R53.81 Other malaise; E87.6 Hypokalemia; I25.10 Atherosclerotic heart disease of native coronary artery without angina pectoris; E78.5 Hyperlipidemia, unspecified; M81.0 Age-related osteoporosis without current pathological fracture; M19.90 Unspecified osteoarthritis, unspecified site; Z99.81 Dependence on supplemental oxygen; I25.2 Old myocardial infarction; Z20.822 Contact with and (suspected) exposure to COVID-19; Z79.01 Long term (current) use of anticoagulants; Z79.02 Long term (current) use of antithrombotics/antiplatelets; Z79.899 Other long term (current) drug therapy; Z88.0 Allergy status to penicillin; Z88.5 Allergy status to narcotic agent; Z88.8 Allergy status to other drugs, medicaments and biological substances; Z86.73 Personal history of transient ischemic attack (TIA), and cerebral infarction without residual deficits; Z95.5 Presence of coronary angioplasty implant and graft; Z87.891 Personal history of nicotine dependence; Z90.49 Acquired absence of other specified parts of digestive tract; Z82.49 Family history of ischemic heart disease and other diseases of the circulatory system; Z83.2 Family history of diseases of the blood and blood-forming organs and certain disorders involving the immune mechanism; Z80.41 Family history of malignant neoplasm of ovary
CPT/HCPCS: 36415; 36430; 36569; 70450; 71045; 71275; 80048; 80053; 80076; 81001; 82805; 83605; 83735; 83880; 84100; 84145; 84439; 84443; 84484; 85025; 85610; 86850; 86900; 86901; 87040; 87811; 93005; 93306; 94010; 94640; 96361; 96365; 96375; 97110; 97116; 97161; 97530; 99285; J0282; J0456; J1160; J1650; J1940; J2001; J3010; J3475; J3480; J7030; J7050; J7614; P9016; Q9967; U0003